=== PATIENT | female | born 1940 | race African-American/Black ===

== ENCOUNTER 2017-04-09 17:50 | Emergency (ER) | payer MEDICARE, OTHER ==
[~2017-04-09] VITALS: Ht 162.6 cm; Wt 98.0 kg
[~2017-04-09 17:50] MED LIST: IBUPROFEN600 MG ORAL
[2017-04-09] MEDS ORDERED: METOPROLOL SUCC25 MG ORAL (18:20)
[2017-04-09 20:06] VITALS: BP 144/50
[2017-04-09 20:07] LABS: BASOPHILS % (AUTO) 1.2 % (0.0-2.0); LYMPHOCYTES % (AUTO) 26.5 % (20.0-45.0); MEAN CORPUSCULAR HEMOGLOBIN 30.5 PG (27.0-31.0); MEAN CORPUSCULAR HGB CONC 34.8 G/DL (32.0-36.0); MEAN CORPUSCULAR VOLUME 88 FL (80-99); MEAN PLATELET VOLUME 6.7 FL (6.5-10.1); NEUTROPHILS % (AUTO) 65.3 % (45.0-75.0); PLATELET COUNT 256 K/UL (150-450); RED BLOOD COUNT 3.87 M/UL (4.20-5.40); RED CELL DISTRIBUTION WIDTH 14.6 % (11.6-14.8); WHITE BLOOD COUNT 7.1 K/UL (4.8-10.8)
[2017-04-09 21:16] LABS: TROPONIN I < 0.30 ng/mL (<=0.30)
[2017-04-09 21:17] LABS: ALANINE AMINOTRANSFERASE 30 U/L (3-33); ALBUMIN/GLOBULIN RATIO 0.9 (1.0-2.7); ANION GAP 17 (5-15); ASPARTATE AMINO TRANSFERASE 36 U/L (5-40); CALCIUM 9.5 mg/dL (8.6-10.2); CARBON DIOXIDE 23 mEQ/L (20-30); CHLORIDE 100 mEQ/L (98-107); CREATININE 1.1 mg/dL (0.5-0.9); HEMOLYSIS 5; POTASSIUM 3.6 mEQ/L (3.4-4.9); SODIUM 140 mEQ/L (135-145); TOTAL PROTEIN 8.1 g/dL (6.6-8.7)
[2017-04-09 21:24] LABS: CKMB 2.1 ng/mL (< 3.8)
[2017-04-09] MEDS ORDERED: ACETAMINOPHEN-1 EAC1 ORAL (21:35)
[2017-04-09] MEDS ORDERED: Morphine Sulfate 4mg/ml Inj IVP ONE (21:45)
[2017-04-09 21:58] VITALS: BP_SYST 140; BP_SYST 144; BP_DIAS 50; BP_DIAS 65
--- NOTE | 2017-04-09 23:38 | Emergency Room Report ---
History of Present Illness General Chief Complaint: General Complaint Source: Patient Present Illness HPI 76-year-old female presents to ED for evaluation. Daughter at bedside states that since this morning patient has been complaining of numbness of the left arm , pain and weakness of the left leg. BP initially elevated. Patient states she woke up with symptoms this morning of numbness in the left arm and feels that her left leg is going to give out. Patient denies any chest pain or shortness of breath. Denies any slurred speech or facial droop. 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 Pain is throbbing, 8/10 in the left hip, nonradiating. No other aggravating or relieving factors. Denies any other associated symptoms Allergies: Coded Allergies: PENICILLINS (Verified Allergy, Unknown, SWELLING EVERYWHERE, EVEN EYES PER PATIENT, 11/24/11) Patient History Past Medical History: none Past Surgical History: none Pertinent Family History: none Social History: Denies: alcohol use, drug use, smoking Now: No Immunizations: UTD Reviewed Nursing Documentation: PMH: Agreed, PSxH: Agreed Nursing Documentation-PMH Hx Cerebrovascular Accident: No - RA Review of Systems All Other Systems: negative except mentioned in HPI Physical Exam Vital Signs Date Time Temp Pulse Resp B/P Pulse Ox O2 Delivery O2 Flow Rate FiO2 04/09/17 18:15 98.2 70 16 209/92 98 Room Air Sp02 EP Interpretation: reviewed, normal General Appearance: no apparent distress, alert, GCS 15, non-toxic Head: normocephalic, atraumatic Eyes: bilateral eye PERRL, bilateral eye normal inspection ENT: hearing grossly normal, normal pharynx, no angioedema, normal voice Neck: full range of motion, supple/symm/no masses Respiratory: chest non-tender, lungs clear, normal breath sounds, speaking full sentences Cardiovascular #1: regular rate, rhythm, no edema Cardiovascular #2: 2+ carotid (R), 2+ carotid (L), 2+ radial (R), 2+ radial (L) , 2+ dorsalis pedis (R), 2+ dorsalis pedis (L) Gastrointestinal: normal bowel sounds, non tender, soft, non-distended, no guarding, no rebound Rectal: deferred Genitourinary: normal inspection, no CVA tenderness Musculoskeletal: back normal, gait/station normal, normal range of motion, non- tender Neurologic: alert, oriented x3, responsive, 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 III-XII nml as tested, motor strength/tone normal, sensory intact, speech normal Psychiatric: judgement/insight normal, memory normal, mood/affect normal, no suicidal/homicidal ideation Reflexes: 3+ bicep (R), 3+ bicep (L), 3+ tricep (R), 3+ tricep (L), 3+ knee (R) , 3+ knee (L) Skin: normal color, no rash, warm/dry, well hydrated Lymphatic: no adenopathy Medical Decision Making Diagnostic Impression: Primary Impression: Hip osteoarthritis Qualified Codes: M16.12 - Unilateral primary osteoarthritis, left hip Additional Impression: Cervical radiculopathy ER Course Hospital Course In the 6-year-old female presents to ED complaining of left arm numbness, left leg weakness. BP elevated Differential diagnoses include: arrythmia, dehydration, intracranial bleed, seizure Clinical course Patient placed on stretcher. on campus monitor. After initial history and physical I ordered labs, EKG, chest Xray, IVFs, CT Brain, CT Cspine, Hip xray labs reviewed- no leukocytosis, Hb/Hct stable, electrolytes ok, troponins negative CT Brain - unremarkable CT Cspine - left formainal stenosis at C5-C6 Chest x-ray- no acute process EKG - NSR, no acute changes L hip xray shows significant DJD, no acute fx Patient has no focal deficits. Despite patient states she feels numb in the left hand, on neurological exam patient equal sensations in both arms. Patient is 5 out of 5 motor in both arms. Patient has 5 out of 5 strength in both legs. She was sensation in both legs. Patient has no facial droop or slurred speech. CT negative. My suspicion for stroke is low Her subjective numbness is likely related to the stenosis at C5, C6 in the neck. Likely a cervical radiculopathy Left hip shows significant degenerative disease which is a likely a explanation for why her leg keep giving out On reassessment blood pressure is markedly improved without intervention I discussed the findings with patient I do not believe patient requires admission at this time. Patient requires outpatient followup I. I feel this is a highly complex case requiring extensive working including EKG/Rhythm strip, Xray/CT/US, Blood/urine lab work, repeat exams while in ED, and administration of strong opiates/narcotics for pain control, admission to hospital or close patient follow up. Diagnosis - hip osteoarthritis, cervical radiculopathy Stable and discharged to home. Followup with PMD. Return to ED if symptoms recur or worsen Labs Test 04/09/17 19:25 04/09/17 20:53 White Blood Count 7.1 K/UL (4.8-10.8) Red Blood Count 3.87 M/UL (4.20-5.40) Hemoglobin 11.8 G/DL (12.0-16.0) Hematocrit 34.0 % (37.0-47.0) Mean Corpuscular Volume 88 FL (80-99) Mean Corpuscular Hemoglobin 30.5 PG (27.0-31.0) Mean Corpuscular Hemoglobin Concent 34.8 G/DL (32.0-36.0) Red Cell Distribution Width 14.6 % (11.6-14.8) Platelet Count 256 K/UL (150-450) Mean Platelet Volume 6.7 FL (6.5-10.1) Neutrophils (%) (Auto) 65.3 % (45.0-75.0) Lymphocytes (%) (Auto) 26.5 % (20.0-45.0) Monocytes (%) (Auto) 4.0 % (1.0-10.0) Eosinophils (%) (Auto) 3.0 % (0.0-3.0) Basophils (%) (Auto) 1.2 % (0.0-2.0) Pro-B-Type Natriuretic Peptide 444 pg/mL (0-450) Sodium Level 140 mEQ/L (135-145) Potassium Level 3.6 mEQ/L (3.4-4.9) Chloride Level 100 mEQ/L (98-107) Carbon Dioxide Level 23 mEQ/L (20-30) Anion Gap 17 (5-15) Blood Urea Nitrogen 12 mg/dL (7-23) Creatinine 1.1 mg/dL (0.5-0.9) Estimat Glomerular Filtration Rate mL/min (>60) Glucose Level 127 mg/dL (74-106) Calcium Level 9.5 mg/dL (8.6-10.2) Total Bilirubin 0.3 mg/dL (0.0-1.2) Aspartate Amino Transf (AST/SGOT) 36 U/L (5-40) Alanine Aminotransferase (ALT/SGPT) 30 U/L (3-33) Alkaline Phosphatase 110 U/L (35-104) Total Creatine Kinase 135 U/L (26-140) Creatine Kinase MB 2.1 ng/mL (< 3.8) Creatine Kinase MB Relative Index 1.5 Troponin I < 0.30 ng/mL (<=0.30) Total Protein 8.1 g/dL (6.6-8.7) Albumin 4.0 g/dL (3.5-5.2) Globulin 4.1 g/dL Albumin/Globulin Ratio 0.9 (1.0-2.7) EKG Diagnostic Results Rate: normal Rhythm: NSR ST Segments: no acute changes ASA given to the pt in ED: No Rhythm Strip Diag. Results EP Interpretation: yes Rhythm: NSR, no PVC's, no ectopy Chest X-Ray Diagnostic Results EP Interpretation: Yes Findings: no consolidation, no effusion, no pneumothorax, no acute cardiopulmonary disease Number of Views: 1 Other X-Ray Diagnostic Results Other X-Ray Diagnostic Results : X-Ray Ordered: L hip EP Interpretation: Yes Findings: no fractures, no dislocation, no soft tissue swelling, other - severe DJD Number of Views: 3 CT/MRI/US Diagnostic Results CT/MRI/US Diagnostic Results : Imaging Test Ordered: CT Head, CT Cspine Impression CT head - no acute process CT Cspine - left foraminal stenosis at C5-C6 Last Vital Signs Date Time Temp Pulse Resp B/P Pulse Ox O2 Delivery O2 Flow Rate FiO2 04/09/17 21:58 97.3 71 22 144/50 96 Room Air Status: improved Disposition: HOME, SELF-CARE Condition: Stable Scripts Acetaminophen With Codeine (T#3) (TYLENOL #3 TAB*) Y Tab 1 TAB ORAL Q8H Y for For Pain, #20 TAB Prov: JASIEL HOLLAND M.D. 04/09/17 Patient Instructions: Osteoarthritis, Cervical Radiculopathy, [id number] JASIEL HOLLAND M.D. Apr 09, 2017 23:38
--- NOTE | 2017-04-10 09:09 | Diagnostic Imaging Report ---
Indication: Neck pain. Technique: Continuous helical imaging of the cervical spine was obtained transaxially from the skull base to the upper thoracic spine. 2-D coronal and sagittal reformatted images were obtained. Total Dose length Product (DLP): [address] Dose Index Volume (CTDIvol): 35 mGy Comparison: None Findings: There is no acute fracture or malalignment identified. There is no soft tissue swelling identified. Mild uncovertebral arthritis is demonstrated at multiple levels. Some of the intervertebral discs show mild narrowing. There is a 2 cm hypodense right thyroid nodule demonstrated. This could be further evaluated with ultrasound. Impression: No acute injury Mild spondylosis [facility] has communicated the preliminary results to the Emergency Department. Their findings are largely concordant with this report. The CT scanner at [facility] is accredited by the [employer] and the scans are performed using dose optimization techniques as appropriate to a performed exam including Automatic Exposure control.
--- NOTE | 2017-04-10 09:25 | Diagnostic Imaging Report ---
Indication: Headache Technique: Contiguous 5 mm thick transaxial imaging of the head obtained in a Siemens Sensation [address] scanner. Soft tissue and bone windows generated. Total Dose length Product (DLP): [address] Dose Index Volume (CTDIvol): 70.38 mGy Comparison: 11/24/11 Findings: There is very mild prominence of the ventricles, basal cisterns, and cerebral sulci consistent with atrophy. Mild, nonspecific, white matter hypoattenuation is noted throughout the brain consistent with chronic small vessel disease. There is no midline shift, edema, acute hemorrhage, mass effect, or abnormal extra-axial fluid collections. Bones and extra osseous soft tissues are unremarkable. Impression: No acute intracranial bleed, mass effect or edema. Mild atrophy of the brain. Nonspecific white matter hypoattenuation probably due to chronic small vessel disease. The CT scanner at [facility] is accredited by the [employer] and the scans are performed using dose optimization techniques as appropriate to a performed exam including Automatic Exposure control.
--- NOTE | 2017-04-10 11:10 | Diagnostic Imaging Report ---
Indications: hip pain Findings: Two views of the left hip were obtained. Moderate to severe narrowing of the left hip joint with subchondral sclerosis, cysts and osteophyte formation demonstrated. There is no fracture or malalignment identified. Impression: Moderate to severe osteoarthritis of the left hip
--- NOTE | 2017-04-11 08:29 | Diagnostic Imaging Report ---
Indication: Chest Pain Comparison: 11/24/11 A single view chest radiograph was obtained. Findings: Cardiac silhouette is enlarged. Lung volumes are low. There is no obvious infiltrate. Multilevel endplate spurs noted throughout the thoracic and lumbar spine with generalized osteopenia. Impression: Enlarged cardiac silhouette presumably due to cardiac enlargement. Pericardial effusion not excluded. Osteoporosis Spondylosis
== END 2017-04-09 22:00 | disposition home or self-care (01) ==
LOC: EMR 18:55
DX: M16.12 Unilateral primary osteoarthritis, left hip (principal); M54.12 Radiculopathy, cervical region; R53.1 Weakness; Z88.0 Allergy status to penicillin; Z96.641 Presence of right artificial hip joint
CPT/HCPCS: 36415; 70450; 71010; 72125; 73502; 80053; 82550; 82553; 83880; 84484; 85025; 93005; 96374; 99284; J2270

== ENCOUNTER 2018-07-28 17:05 | Emergency (ER) | payer MEDICARE, OTHER ==
[~2018-07-28] VITALS: Ht 162.6 cm; Wt 72.6 kg
[~2018-07-28 17:05] MED LIST changes: +ACETAMINOPHEN-1 EAC1 ORAL; +METOPROLOL SUCC25 MG ORAL
--- NOTE | 2018-07-28 17:32 | Emergency Room Report ---
History of Present Illness General Chief Complaint: Dyspnea/Respdistress Source: Patient, Family Member Present Illness HPI 70-year-old female, history of hypertension, asthma/COPD, presenting with progressive shortness of breath, cough for the last week. Decreased oral intake. Saw PCP and was sent to the emergency room. Patient states that she's had productive cough, no fever no chills. This can barely walk because she gets short of breath. No history of DVT or PE in the past Allergies: Coded Allergies: PENICILLINS (Verified Allergy, Unknown, SWELLING EVERYWHERE, EVEN EYES PER PATIENT, 11/24/11) Patient History Past Medical History: see triage record Past Surgical History: none Pertinent Family History: none Reviewed Nursing Documentation: PMH: Agreed; PSxH: Agreed Nursing Documentation-PMH Past Medical History: No History, Except For Hx Hypertension: Yes Hx Asthma: Yes Hx COPD: Yes Hx Cerebrovascular Accident: Yes Review of Systems All Other Systems: negative except mentioned in HPI Physical Exam Vital Signs Date Time Temp Pulse Resp B/P (MAP) Pulse Ox O2 Delivery O2 Flow Rate FiO2 07/28/18 17:18 97.7 82 24 135/64 95 Room Air 97.7 Sp02 EP Interpretation: reviewed, normal General Appearance: alert, GCS 15, non-toxic, mild distress Head: normocephalic, atraumatic Eyes: bilateral eye normal inspection, bilateral eye PERRL, bilateral eye EOMI ENT: normal ENT inspection, normal pharynx, normal voice, moist mucus membranes Neck: normal inspection, full range of motion, supple Respiratory: respiratory distress, speaking full sentences, other - coarse b/l LL base Cardiovascular #1: normal inspection, regular rate, rhythm, no edema, normal capillary refill Cardiovascular #2: 2+ radial (R), 2+ radial (L) Gastrointestinal: normal inspection, non tender, soft, non-distended, no guarding Musculoskeletal: normal inspection, back normal, normal range of motion, non- tender Neurologic: normal inspection, alert, oriented x3, responsive, motor strength/ tone normal, sensory intact, normal gait, speech normal Psychiatric: normal inspection, judgement/insight normal, memory normal Skin: normal inspection, normal color, no rash, warm/dry, well hydrated, normal turgor Medical Decision Making Diagnostic Impression: Primary Impression: Pneumonia Additional Impressions: UTI (urinary tract infection) Elevated troponin ER Course 78-year-old female cough, shortness of breath DDX: URI, pneumonia, CHF, COPD exacerbation Plan: Obtain labs, ua, EKG, CXR ER course: Patient has been monitored during ED stay, HD stable given abx for LL pna as well as for UTI slight elevation trop pt not having active cp asa given and heprain Disposition: Patient is to be xferred to OSH, dw Dr Garcia who has accepted pt for admission 9pm Please note that this Emergency Department Report was dictated using [employer] expedition guide technology software, occasionally this can lead to erroneous entry secondary to interpretation by the dictation equipment. EKG Diagnostic Results EP Interpretation: Yes Rate: normal Rhythm: NSR ST Segments: T wave inversion aVL ASA given to patient: No Rhythm Strip EP Interpretation: Yes Rate: 79 Rhythm: NSR, no PVCs, no ectopy Chest X-ray CXR: Ordered: Yes 1 view Indication: [sob EP interpretation: Yes Interpretation: left lower lobe consolidation Impression: L pneumonia Electronically signed by Vikram Husain MD Laboratory Tests Test 07/28/18 17:55 07/28/18 18:20 White Blood Count 10.4 K/UL (4.8-10.8) Red Blood Count 4.54 M/UL (4.20-5.40) Hemoglobin 11.6 G/DL (12.0-16.0) L Hematocrit 37.9 % (37.0-47.0) Mean Corpuscular Volume 83 FL (80-99) Mean Corpuscular Hemoglobin 25.5 PG (27.0-31.0) L Mean Corpuscular Hemoglobin Concent 30.6 G/DL (32.0-36.0) L Red Cell Distribution Width 16.5 % (11.6-14.8) H Platelet Count 434 K/UL (150-450) Mean Platelet Volume 6.3 FL (6.5-10.1) L Neutrophils (%) (Auto) 67.9 % (45.0-75.0) Lymphocytes (%) (Auto) 14.0 % (20.0-45.0) L Monocytes (%) (Auto) 8.1 % (1.0-10.0) Eosinophils (%) (Auto) 8.4 % (0.0-3.0) H Basophils (%) (Auto) 1.5 % (0.0-2.0) Sodium Level 137 MMOL/L (136-145) Potassium Level 3.9 MMOL/L (3.5-5.1) Chloride Level 102 MMOL/L (98-107) Carbon Dioxide Level 27 MMOL/L (21-32) Anion Gap 9 mmol/L (5-15) Blood Urea Nitrogen 15 mg/dL (7-18) Creatinine 1.0 MG/DL (0.55-1.30) Estimate Glomerular Filtration Rate mL/min (>60) Glucose Level 114 MG/DL (74-106) H Lactic Acid Level 1.20 mmol/L (0.4-2.0) Calcium Level 10.0 MG/DL (8.5-10.1) Total Bilirubin 0.5 MG/DL (0.2-1.0) Aspartate Amino Transferase (AST) 67 U/L (15-37) H Alanine Aminotransferase (ALT) 43 U/L (12-78) Alkaline Phosphatase 96 U/L (46-116) Troponin I 0.258 ng/mL (0.000-0.056) Pro-B-Type Natriuretic Peptide 613 pg/mL (0-125) H Total Protein 9.4 G/DL (6.4-8.2) H Albumin 3.1 G/DL (3.4-5.0) L Globulin 6.3 g/dL Albumin/Globulin Ratio 0.5 (1.0-2.7) L Thyroid Stimulating Hormone (TSH) 2.042 uiU/mL (0.358-3.740) Urine Color Yellow Urine Appearance Cloudy Urine pH 5 (4.5-8.0) Urine Specific [place] 1.020 (1.005-1.035) Urine Protein 2+ (NEGATIVE) H Urine Glucose (UA) Negative (NEGATIVE) Urine Ketones 1+ (NEGATIVE) H Urine Blood 2+ (NEGATIVE) H Urine Nitrite Negative (NEGATIVE) Urine Bilirubin Negative (NEGATIVE) Urine Urobilinogen Normal MG/DL (0.0-1.0) Urine Leukocyte Esterase 3+ (NEGATIVE) H Urine RBC 5-10 /HPF (0 - 2) H Urine WBC 20-30 /HPF (0 - 2) H Urine Squamous Epithelial Cells Many /LPF (NONE/OCC) H Urine Bacteria Many /HPF (NONE) H Microbiology Date/Time Source Procedure Growth Status 07/28/18 17:55 Nasal Nares Influenza Types A,B Antigen ([facility]) - Final Complete Last Vital Signs Date Time Temp Pulse Resp B/P (MAP) Pulse Ox O2 Delivery O2 Flow Rate FiO2 07/28/18 17:18 97.7 82 24 135/64 95 Room Air 97.7 Disposition: [facility] Condition: Serious RetinoVikram M.D. Jul 28, 2018 17:32
[2018-07-28 17:58] VITALS: BP 135/64
[2018-07-28] MEDS ORDERED: cefTRIAXone 1 GM in NS 55 ML IVPB ONE (18:00)
[2018-07-28] MEDS ORDERED: Azithromycin 500 MG in D5W 275 ML IVPB ONE (18:00)
[2018-07-28 18:30] LABS: APPEARANCE,URINE CLOUDY; BILIRUBIN, URINE NEGATIVE (NEGATIVE); GLUCOSE, URINE (UA) NEGATIVE (NEGATIVE); KETONES,URINE 1+ (NEGATIVE); LEUKOCYTE ESTERASE ,URINE 3+ (NEGATIVE); NITRITE,URINE NEGATIVE (NEGATIVE); PH,URINE 5 (4.5-8.0); PROTEIN,URINE 2+ (NEGATIVE); UROBILINOGEN,URINE NORMAL MG/DL (0.0-1.0)
[2018-07-28 18:36] LABS: POTASSIUM 3.9 MMOL/L (3.5-5.1); SODIUM 137 MMOL/L (136-145)
[2018-07-28 18:36] LABS: COLOR,URINE YELLOW
[2018-07-28 18:37] LABS: ANION GAP 9 mmol/L (5-15); BLOOD UREA NITROGEN 15 mg/dL (7-18); CARBON DIOXIDE 27 MMOL/L (21-32); CHLORIDE 102 MMOL/L (98-107)
[2018-07-28 18:45] LABS: ALANINE AMINOTRANSFERASE 43 U/L (12-78); ALBUMIN 3.1 G/DL (3.4-5.0); ASPARTATE AMINO TRANSFERASE 67 U/L (15-37); BILIRUBIN,TOTAL 0.5 MG/DL (0.2-1.0)
[2018-07-28 18:46] LABS: ALBUMIN/GLOBULIN RATIO 0.5 (1.0-2.7); ALKALINE PHOSPHATASE 96 U/L (46-116)
[2018-07-28 18:49] LABS: BASOPHILS % (AUTO) 1.5 % (0.0-2.0); EOSINOPHILS % (AUTO) 8.4 % (0.0-3.0); HEMATOCRIT 37.9 % (37.0-47.0); HEMOGLOBIN 11.6 G/DL (12.0-16.0); MEAN CORPUSCULAR VOLUME 83 FL (80-99); MONOCYTES % (AUTO) 8.1 % (1.0-10.0); NEUTROPHILS % (AUTO) 67.9 % (45.0-75.0); PLATELET COUNT 434 K/UL (150-450); RED BLOOD COUNT 4.54 M/UL (4.20-5.40); RED CELL DISTRIBUTION WIDTH 16.5 % (11.6-14.8); WHITE BLOOD COUNT 10.4 K/UL (4.8-10.8)
[2018-07-28] MEDS ORDERED: LOSARTAN POTASS25 MG ORAL (19:09)
[2018-07-28] MEDS ORDERED: ASPIR 8181 MG ORAL (19:09)
[2018-07-28] MEDS ORDERED: FUROSEMIDE20 M1 ORAL (19:09)
[2018-07-28] MEDS ORDERED: Morphine Sulfate 2mg/ml Inj IVP ONE (19:45)
[2018-07-28 20:22] VITALS: BP 128/66
[2018-07-28] MEDS ORDERED: Heparin 5000 units/ml inj IV ONE (20:30)
[2018-07-28] MEDS ORDERED: Miralax 17gm pkt ORAL PRN (21:45)
[2018-07-28] MEDS ORDERED: Nitroglycerin Subl 0.4mg tab SL PRN (21:45)
[2018-07-28] MEDS ORDERED: Mylanta II UD 30ml ORAL PRN (21:45)
[2018-07-28] MEDS ORDERED: Albuterol/Ipratropium 3ml neb HHN PRN (21:45)
[2018-07-28] MEDS ORDERED: Promethazine/Codeine 5ml UD ORAL PRN (21:45)
[2018-07-28 22:27] VITALS: BP 134/59
[2018-07-28 22:30] VITALS: BP 134/59
[2018-07-29] MEDS ORDERED: Vancomycin 500mg in D5W 275ml IVPB SCH ×2
[2018-07-29] MEDS ORDERED: Heparin 5000 units/ml inj SUBQ SCH (09:00)
[2018-07-29] MEDS ORDERED: Cefepime HCl 1 GM in D5W 55 ML IV SCH (09:00)
--- NOTE | 2018-07-29 10:48 | Diagnostic Imaging Report ---
Indication: Dyspnea Comparison: April 09, 2017 A single view chest radiograph was obtained. Findings: Interstitial opacities are present with prominent vascularity and heart size. The bones are osteopenic. Aorta is calcified. Lung volumes are low. IMPRESSION: Interstitial pulmonary edema suspected
--- NOTE | 2018-07-29 15:12 | Cardiology Report ---
APPROVED REPORT EKG Measurement Heart [id number] Normal sinus rhythm Left ventricular hypertrophy with repolarization abnormality Abnormal ECG
== END 2018-07-28 22:30 | disposition short-term general hospital (02) ==
LOC: EMR 18:38 → EDBEDREQSVC 18:51 → EMR 22:30
DX: J18.8 Other pneumonia, unspecified organism (principal); N39.0 Urinary tract infection, site not specified; R06.02 Shortness of breath; J44.9 Chronic obstructive pulmonary disease, unspecified; J45.998 Other asthma; Z86.73 Personal history of transient ischemic attack (TIA), and cerebral infarction without residual deficits
CPT/HCPCS: 36415; 71045; 80053; 81003; 83605; 83880; 84443; 84484; 85025; 85610; 85730; 86710; 87040; 87086; 87181; 93005; 96365; 96368; 96375; 99284; J0456; J0696; J1644; J2270; 96366; 96372; 99285

== ENCOUNTER 2018-10-06 14:28 | Emergency (ER) | payer MEDICARE, OTHER ==
[~2018-10-06] VITALS: Ht 167.6 cm; Wt 72.6 kg
[~2018-10-06 14:28] MED LIST changes: +ASPIR 8181 MG ORAL; +FUROSEMIDE20 M1 ORAL; +LOSARTAN POTASS25 MG ORAL
[2018-10-06 15:25] VITALS: BP 132/64
[2018-10-06 15:30] VITALS: BP 124/76
--- NOTE | 2018-10-06 16:24 | Diagnostic Imaging Report ---
Indication: Head and neck pain status post fall out of wheelchair Technique: Spiral acquisitions obtained through the cervical spine. No IV contrast utilized. Multiplanar reconstructions were generated. Total dose length product 1606.74 mGycm. CTDIvol(s) 70.38,12.24 mGy. Dose reduction achieved using automated exposure control. Comparison: none Findings: Bony alignment is normal. Vertebral body heights are preserved. The disc spaces are preserved. No acute fractures. No dislocations. At C4-5, bilateral facet arthrosis results in mild narrowing of the neural foramina. Broad-based central posterior disc protrusion is noted, but does not result in any significant spinal stenosis. At C5-6, there is vacuum formation within the C5 endplate consistent with early degenerative change. There is mild bilateral facet arthrosis, with mild neural foraminal stenosis on the left. No significant disc bulge or protrusion or spinal stenosis. At the remaining levels, no significant disc bulge or protrusion, spinal stenosis, or neural foraminal narrowing. A 14 mm low-attenuation nodule is seen within the right thyroid lobe. This appears smaller than on the previous study When compared to prior exam, no significant interim change this was also demonstrated previously Scarring is seen at both lung apices Impression: No acute bony trauma Degenerative changes, as detailed on a level by level basis above Apical pulmonary right scarring incidentally noted A solitary 14 mm thyroid nodule in the right lobe has no suspicious features. In the absence of clinical risk factors for thyroid cancer, this finding is highly likely benign and no additional imaging or follow-up is recommended. CITATION: Recommendations for thyroid nodule management based on Machuca et al., J Am Lizabeth Radiol 12:143-50 (2015). The CT scanner at [facility] is accredited by the [employer] and the scans are performed using protocols designed to limit radiation exposure to as low as reasonably achievable to attain images of sufficient resolution adequate for diagnostic evaluation.
[2018-10-06 16:30] VITALS: BP 128/75
--- NOTE | 2018-10-06 17:07 | Emergency Room Report ---
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 Patient states that when she fell she injured both shoulders and hit the back of her head. Patient states that she also has some posterior neck pain. Patient reports her pain as 5 out of 10 in severity generalized in his body areas she denies pain and pinpoint localized bony tenderness. Patient denies loss of consciousness when she hit her head. Patient denies confusion, slurred speech or difficulty concentrating. Patient eats that she has high blood pressure and COPD and usually requires oxygen on nasal cannula. She denies midline upper or lower back pain. Pt. reports some soreness in the hips but her head and neck took most of the impact. She denies taking blood thinning medications. Pt. has bilateral hip replacement She reports always having hip pain, but is tender after fall as well. . Allergies: Coded Allergies: PENICILLINS (Verified Allergy, Unknown, SWELLING EVERYWHERE, EVEN EYES PER PATIENT, 11/24/11) Uncoded Allergies: PENICILLIN (Allergy, Unknown, 10/06/18) Patient History Past Medical History: see triage record, HTN, COPD Past Surgical History: none, other - bilat. hip replacement Pertinent Family History: none Now: No Reviewed Nursing Documentation: PMH: Agreed; PSxH: Agreed Nursing Documentation-PMH Hx Hypertension: Yes Hx Asthma: Yes Hx COPD: Yes Hx Cerebrovascular Accident: Yes Review of Systems All Other Systems: negative except mentioned in HPI Physical Exam Vital Signs Date Time Temp Pulse Resp B/P (MAP) Pulse Ox O2 Delivery O2 Flow Rate FiO2 10/06/18 14:07 98.1 88 14 146/88 96 Nasal Cannula 2.0 Sp02 EP Interpretation: reviewed, normal General Appearance: no apparent distress, alert, GCS 15, non-toxic Head: normocephalic, other - mild ttp to the posterior head, no hematoma or swelling noted. Eyes: bilateral eye normal inspection, bilateral eye PERRL, bilateral eye EOMI ENT: hearing grossly normal, normal voice Neck: full range of motion, tender lateral, tender midline Respiratory: chest non-tender, lungs clear, normal breath sounds, no respiratory distress, no wheezing, speaking full sentences Cardiovascular #1: regular rate, rhythm, normal capillary refill Gastrointestinal: non tender, soft Musculoskeletal: back normal, normal range of motion, non-tender, other - Pt. requires wheelchair assistance- baseline for her, tender - TTP to bilateral shoulders laterally and posteriorly, ttp to lateral hips bilaterally. no leg length discrepancy. no bruises. Neurologic: alert, oriented x3, responsive, motor strength/tone normal, sensory intact, speech normal, grossly normal Psychiatric: judgement/insight normal, mood/affect normal Skin: normal color, no rash, warm/dry, well hydrated, other - no bruises Medical Decision Making PA Attestation Dr. Sylvester is my supervising physician whom pt. management has been discussed with. 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 Patient states that when she fell she injured both shoulders and hit the back of her head. Patient states that she also has some posterior neck pain. Patient reports her pain as 5 out of 10 in severity generalized in his body areas she denies pain and pinpoint localized bony tenderness. Patient denies loss of consciousness when she hit her head. Patient denies confusion, slurred speech or difficulty concentrating. Patient eats that she has high blood pressure and COPD and usually requires oxygen on nasal cannula. She denies midline upper or lower back pain. Pt. reports some soreness in the hips but her head and neck took most of the impact. She denies taking blood thinning medications. Pt. has bilateral hip replacement She reports always having hip pain, but is tender after fall as well. . Ddx considered but are not limited to Fracture, dislocation, contusion, concussion Sprain/Strain/Spasm, subdural hematoma, intracranial hemorrhage just to name a few. Vital signs: are WNL, pt. is afebrile H&PE are most consistent with contusion, no evidence of focal neurological deficit, no loss of consciousness. Pt. is NAD, non-toxic in appearance, answering questions appropriately and without delay in response. negative pronator drift. pt. able to sit-up on the side of the gurney on her own. ORDERS: -CT Head and C-spine; No acute injuries- multiple levels of degenerative changes pls. see official radiology report for full details. * also Thyroid nodule noted. - this was d/w pt. and her bedside family member. d/w them I will also provide copies of these results for them and for dr. Lema in the pt. packet. X-rays of Right and Left shoulders: Unremarkable- significant chronic degenerative changes. ED INTERVENTIONS: - Pt. had family member at bedside who I also discussed red flag symptoms to keep an eye out for that would indicate prompt return to the ED. Family member attests that someone will be keeping an eye on the pt. tonight for any status changes. - Pt. and responsible alliance party verbalize their understanding and agreement with proposed treatment plan. - Before d/c Pt. was re-assessed due to BLS ambulance concern for RR. Pt. is on NC saturating at 99%, lungs continue to be CTA. Pt. reports she normally breaths a bit faster than normal, but this is normal for her. Pt. is NAD, speaking full sentences, comfortable and no increased effort of breathing is noted. Pt. is also examined by Dr. Sylvester whom agrees and has similar findings. DISCHARGE: At this time pt. is stable for d/c to home. Will provide printed patient care instructions, and any necessary prescriptions. Care plan and follow up instructions have been discussed with the patient prior to discharge. Other X-Ray Diagnostic Results Other X-Ray Diagnostic Results #1: X-Ray ordered: Shoulder Right # of Views/Limited Vs Complete: 3 View Indication: Pain EP Interpretation: Yes PA Xray: Interpretation reviewed, by supervising MD, and agrees with findings. Interpretation: no dislocation, no soft tissue swelling, no fractures, other - degenerative changes Impression: Other - abnormal: degenerative Electronically Signed by: Soraya Welch PA-C Other X-Ray Diagnostic Results #2: X-Ray ordered: Shoulder Left # of Views/Limited Vs Complete: 3 View Indication: Pain EP Interpretation: Yes PA Xray: Interpretation reviewed, by supervising MD, and agrees with findings. Interpretation: no dislocation, no soft tissue swelling, no fractures, other - degenerative changes Impression: Other - abnormal : degenerative changes Electronically Signed by: Soraya Welch PA-C Other X-Ray Diagnostic Results #3: X-Ray ordered: Bilateral Hips and AP pelvis # of Views/Limited Vs Complete: 3 View Indication: Pain EP Interpretation: Yes PA Xray: Interpretation reviewed, by supervising MD, and agrees with findings. Interpretation: no dislocation, no soft tissue swelling, no fractures, other - no obvious periprosthetic fractures. Impression: Other - abnormal: bilateral hip replacement. Electronically Signed by: Soraya Welch PA-C CT/MRI/US Diagnostic Results CT/MRI/US Diagnostic Results : Imaging Test Ordered: CT Head no contrast and CT C-Spine No contrast Impression Impression: No acute injuries- multiple levels of degenerative changes pls. see official radiology report for full details. * also Thyroid nodule noted. - this was d/w pt. and her bedside family member. d/w them I will also provide copies of these results for them and for dr. Lema in the pt. packet. Last Vital Signs Date Time Temp Pulse Resp B/P (MAP) Pulse Ox O2 Delivery O2 Flow Rate FiO2 10/06/18 15:25 98.1 78 16 132/64 98 Nasal Cannula 2.0 Disposition: XFER SNF Condition: Stable Referrals: Rio Lema DO (PCP) Patient Instructions: Fall Prevention in Hospitals, Adult, Head Injury, Adult, Tkza-[id number] Additional Instructions: Take medications as directed. Follow up with a Primary Care Provider in 3-5 days, even if your symptoms have resolved. --Please review list of primary care clinics, if you do not already have a primary care provider Return sooner to ED if new symptoms occur, or current symptoms become worse. - Please note that this Emergency Department Report was dictated using [employer] professor technology software, occasionally this can lead to erroneous entry secondary to interpretation by the dictation equipment. Soraya Welch Oct 06, 2018 17:07
--- NOTE | 2018-10-06 17:20 | Diagnostic Imaging Report ---
Indications: Head and neck pain, status post fall out of wheelchair Technique: Spiral acquisitions obtained through the brain. Angled axial and coronal 5 x 5 mm slices were reconstructed. Total dose length product 1606.74 mGycm. CTDI vol(s) 70.38,12.24 mGy. Dose reduction achieved using automated exposure control Comparison: 04/09/2017 Findings: There is mild age-related enlargement of the ventricles and extra axial CSF spaces. There is periventricular deep white matter low-attenuation consistent with chronic ischemic change. There is a lacunar infarct in the left lentiform nucleus, not definitely evident previously. Questionable old lacunar infarct is also seen in the central tarik, not definitely evident previously. No acute intrarenal hemorrhage or edema. No mass effect nor midline shift. Intact calvarium. Visualized orbits and sinuses are unremarkable. The mastoids are clear. Impression: Chronic and age-related changes, as described. Old left basal ganglial lacunar infarct. Negative for acute infiltrate bleed or mass effect The CT scanner at [facility] is accredited by the [employer] and the scans are performed using protocols designed to limit radiation exposure to as low as reasonably achievable to attain images of sufficient resolution adequate for diagnostic evaluation.
--- NOTE | 2018-10-06 17:21 | Diagnostic Imaging Report ---
Indication: Pain, status post fall Technique: 3 views of the right shoulder Comparison: none Findings: No acute fractures. No dislocations. There are severe degenerative changes of the glenohumeral joint. Widening of the distance between the acromion and humeral head is noted, significance of which is uncertain but is symmetric with the contralateral side. Extensive interstitial fibrotic changes are seen in the lungs bilaterally. Impression: Degenerative changes as described. No definite acute bony trauma
--- NOTE | 2018-10-06 17:22 | Diagnostic Imaging Report ---
Indication: Pain, status post fall Technique: 3 views of the left shoulder Comparison: none Findings: There are end-stage degenerative changes of the left glenohumeral joint, with near complete obliteration of the joint spaces and extensive proliferative change. No definite acute fractures. No dislocations. Widening of the acromiohumeral distance is similar to the contralateral side. Interstitial fibrotic changes of the lungs are incidentally noted. Bones are osteoporotic Impression: No definite acute bony trauma
[2018-10-06 19:00] VITALS: BP 128/75
--- NOTE | 2018-10-07 09:47 | Diagnostic Imaging Report ---
Indication: Pain Technique: One view of the pelvis, 2 views of both hips Comparison: none Findings: There are bilateral hip prostheses. These appear well aligned. No acute fractures. No dislocations. Impression: No acute process
== END 2018-10-06 19:05 ==
LOC: EDBD 14:28 → EMR 14:56
DX: S00.83XA Contusion of other part of head, initial encounter (principal); S10.93XA Contusion of unspecified part of neck, initial encounter; M25.511 Pain in right shoulder; M25.512 Pain in left shoulder; M25.552 Pain in left hip; M25.551 Pain in right hip; I10 Essential (primary) hypertension; J44.9 Chronic obstructive pulmonary disease, unspecified; Z99.81 Dependence on supplemental oxygen; Z87.891 Personal history of nicotine dependence; Z86.73 Personal history of transient ischemic attack (TIA), and cerebral infarction without residual deficits; Z96.643 Presence of artificial hip joint, bilateral; Z88.0 Allergy status to penicillin; W05.0XXA Fall from non-moving wheelchair, initial encounter; Y92.129 Unspecified place in nursing home as the place of occurrence of the external cause
CPT/HCPCS: 70450; 72125; 73521; 99284

== ENCOUNTER 2019-01-17 13:10 | Inpatient (IN) | payer MEDICARE, OTHER ==
[~2019-01-17] VITALS: Ht 167.6 cm; Wt 49.9 kg
[2019-01-17 13:10] VITALS: BP 141/72
--- NOTE | 2019-01-17 13:10 | NUR ---
ED Nurse Note: Patient brought in by ambulance from [facility] due to repspiratory distress since 1200 today, patient is a/o x3
[2019-01-17] MEDS ORDERED: FISH OIL CAP1000 MG ORAL (13:14)
[2019-01-17] MEDS ORDERED: COLACE100 MG ORAL (13:14)
[2019-01-17] MEDS ORDERED: FERROUS SULFAT325 MG ORAL (13:14)
[2019-01-17] MEDS ORDERED: cefTRIAXone 1 GM in NS 55 ML IVPB ONE (13:30)
[2019-01-17] MEDS ORDERED: Albuterol ud Inhalation HHN ONE (13:30)
[2019-01-17] MEDS ORDERED: Ipratropium 0.02% Inh Soln 2.5ml UD HHN ONE (13:30)
[2019-01-17 13:49] LABS: BASOPHILS % (AUTO) 1.1 % (0.0-2.0); EOSINOPHILS % (AUTO) 3.9 % (0.0-3.0); HEMATOCRIT 35.2 % (37.0-47.0); HEMOGLOBIN 10.9 G/DL (12.0-16.0); LYMPHOCYTES % (AUTO) 18.3 % (20.0-45.0); MEAN CORPUSCULAR VOLUME 84 FL (80-99); MONOCYTES % (AUTO) 5.1 % (1.0-10.0); NEUTROPHILS % (AUTO) 71.7 % (45.0-75.0); PLATELET COUNT 357 K/UL (150-450); RED BLOOD COUNT 4.18 M/UL (4.20-5.40); RED CELL DISTRIBUTION WIDTH 17.1 % (11.6-14.8); WHITE BLOOD COUNT 5.7 K/UL (4.8-10.8)
[2019-01-17 13:55] LABS: ANION GAP 9 mmol/L (5-15); BLOOD UREA NITROGEN 14 mg/dL (7-18); CALCIUM 9.7 MG/DL (8.5-10.1); CARBON DIOXIDE 25 MMOL/L (21-32); CHLORIDE 99 MMOL/L (98-107); CREATININE 0.8 MG/DL (0.55-1.30); SODIUM 133 MMOL/L (136-145)
[2019-01-17 13:59] LABS: ALANINE AMINOTRANSFERASE 58 U/L (12-78); ALBUMIN 2.9 G/DL (3.4-5.0); ALBUMIN/GLOBULIN RATIO 0.4 (1.0-2.7); ALKALINE PHOSPHATASE 129 U/L (46-116); ASPARTATE AMINO TRANSFERASE 132 U/L (15-37); BILIRUBIN,TOTAL 0.3 MG/DL (0.2-1.0)
[2019-01-17 14:22] VITALS: BP 157/80
--- NOTE | 2019-01-17 14:25 | Emergency Room Report ---
History of Present Illness General Chief Complaint: Dyspnea/Respdistress Source: Patient, EMS Present Illness HPI This patient is brought in by EMS. She complains of shortness of breath. She does have a history of COPD. She has had intermittent cough. She denies chest pain. There is no fever or chills. There is no nausea or vomiting. There are no other complaints. Allergies: Coded Allergies: PENICILLINS (Verified Allergy, Unknown, SWELLING EVERYWHERE, EVEN EYES PER PATIENT, 11/24/11) Uncoded Allergies: PENICILLIN (Allergy, Unknown, 10/06/18) Patient History Past Medical History: see triage record, DM, HTN, [place], CAD, CHF, asthma, COPD Past Surgical History: other - Bilateral hip replacement Social History: Denies: smoking, alcohol use, drug use Reviewed Nursing Documentation: PMH: Agreed; PSxH: Agreed Nursing Documentation-PMH Past Medical History: No History, Except For Hx Hypertension: Yes Hx Asthma: Yes Hx COPD: Yes Hx Cerebrovascular Accident: Yes Review of Systems All Other Systems: negative except mentioned in HPI Physical Exam Vital Signs Date Time Temp Pulse Resp B/P (MAP) Pulse Ox O2 Delivery O2 Flow Rate FiO2 01/17/19 12:50 98.8 89 20 152/78 91 Non-Rebreather 15.0 01/17/19 13:38 28 Sp02 EP Interpretation: reviewed, normal General Appearance: no apparent distress, alert, GCS 15, non-toxic Head: normocephalic, atraumatic Eyes: bilateral eye normal inspection, bilateral eye PERRL ENT: hearing grossly normal, normal pharynx, no angioedema, normal voice Neck: full range of motion, supple/symm/no masses Respiratory: chest non-tender, lungs clear, normal breath sounds, no respiratory distress, no retraction, no accessory muscle use, speaking full sentences Cardiovascular #1: regular rate, rhythm, no edema Gastrointestinal: normal bowel sounds, non tender, soft, non-distended, no guarding, no rebound Rectal: deferred Musculoskeletal: normal range of motion, non-tender Neurologic: alert, oriented x3, responsive, motor strength/tone normal, sensory intact, speech normal Psychiatric: judgement/insight normal, memory normal, mood/affect normal, no suicidal/homicidal ideation Skin: normal color, no rash, warm/dry, well hydrated Medical Decision Making Diagnostic Impression: Primary Impression: CHF exacerbation Additional Impressions: Elevated troponin COPD exacerbation ER Course Patient presents with a CHF exacerbation in combination with a COPD exacerbation. Initially I thought this is primarily a COPD exacerbation and the patient was given albuterol, prednisone, IV fluids and antibiotics. However , chest x-ray showed diffuse opacifications consistent with congestive heart failure. So I also treated her with Lasix and nitro paste to her chest wall. The patient did have an elevated troponin was given aspirin. The patient will be admitted to telemetry. Laboratory Tests Test 01/17/19 13:20 White Blood Count 5.7 K/UL (4.8-10.8) Red Blood Count 4.18 M/UL (4.20-5.40) L Hemoglobin 10.9 G/DL (12.0-16.0) L Hematocrit 35.2 % (37.0-47.0) L Mean Corpuscular Volume 84 FL (80-99) Mean Corpuscular Hemoglobin 26.0 PG (27.0-31.0) L Mean Corpuscular Hemoglobin Concent 30.9 G/DL (32.0-36.0) L Red Cell Distribution Width 17.1 % (11.6-14.8) H Platelet Count 357 K/UL (150-450) Mean Platelet Volume 5.8 FL (6.5-10.1) L Neutrophils (%) (Auto) 71.7 % (45.0-75.0) Lymphocytes (%) (Auto) 18.3 % (20.0-45.0) L Monocytes (%) (Auto) 5.1 % (1.0-10.0) Eosinophils (%) (Auto) 3.9 % (0.0-3.0) H Basophils (%) (Auto) 1.1 % (0.0-2.0) Sodium Level 133 MMOL/L (136-145) L Potassium Level 4.0 MMOL/L (3.5-5.1) Chloride Level 99 MMOL/L (98-107) Carbon Dioxide Level 25 MMOL/L (21-32) Anion Gap 9 mmol/L (5-15) Blood Urea Nitrogen 14 mg/dL (7-18) Creatinine 0.8 MG/DL (0.55-1.30) Estimate Glomerular Filtration Rate mL/min (>60) Glucose Level 97 MG/DL (74-106) Calcium Level 9.7 MG/DL (8.5-10.1) Total Bilirubin 0.3 MG/DL (0.2-1.0) Aspartate Amino Transferase (AST) 132 U/L (15-37) H Alanine Aminotransferase (ALT) 58 U/L (12-78) Alkaline Phosphatase 129 U/L (46-116) H Troponin I 0.453 ng/mL (0.000-0.056) Total Protein 9.9 G/DL (6.4-8.2) H Albumin 2.9 G/DL (3.4-5.0) L Globulin 7.0 g/dL Albumin/Globulin Ratio 0.4 (1.0-2.7) L Microbiology Date/Time Source Procedure Growth Status 01/17/19 13:20 Nasal Nares Influenza Types A,B Antigen (GISELLE) - Final Complete EKG Diagnostic Results Rate: normal Rhythm: NSR ST Segments: other - ILBBB, LVH Rhythm Strip Diag. Results EP Interpretation: yes Rate: 70's Rhythm: NSR, no PVC's, no ectopy Chest X-Ray Diagnostic Results Chest X-Ray Diagnostic Results : Chest X-Ray Ordered: Yes # of Views/Limited/Complete: 1 View Indication: Shortness of Breath EP Interpretation: Yes Interpretation: no pneumothorax, other - Diffuse patchy opacities, cardiomegaly Impression: Other - See above Electronically Signed by: Vania Kumar DO Last Vital Signs Date Time Temp Pulse Resp B/P (MAP) Pulse Ox O2 Delivery O2 Flow Rate FiO2 01/17/19 13:46 28 01/17/19 13:46 74 20 98 Nasal Cannula 2.0 01/17/19 13:10 98.8 141/72 Disposition: ADMITTED INPATIENT Condition: Serious Vania Kumar DO Jan 17, 2019 14:25
[2019-01-17] MEDS ORDERED: Nitroglycerin 2% oint pkt TOPIC ONE (14:30)
[2019-01-17] MEDS ORDERED: Aspirin Baby 81mg ORAL ONE (14:30)
--- NOTE | 2019-01-17 14:57 | Diagnostic Imaging Report ---
Indication: Shortness of breath Technique: One view of the chest Comparison: 07/28/2018 Findings: Extensive interstitial and airspace opacities are demonstrated bilaterally. Allowing for differences in exposure technique, perhaps slightly increased from the prior exam. There is a significant component of honeycombing, bronchiectasis, bronchial wall thickening, particularly in the right perihilar region, right lung base, and left perihilar region. There is suggestion of an old healed fracture deformity of the right clavicle. There are degenerative changes of the shoulders bilaterally. The heart is enlarged. There may be small bilateral pleural effusions. Impression: Cardiomegaly Bilateral extensive interstitial and airspace opacities, slightly increased from but similar in distribution to prior study of 07/28/2018. Suspect component of chronic interstitial fibrosis with superimposed acute edema or infiltrates
[2019-01-17 15:04] LABS: APPEARANCE,URINE CLOUDY; BILIRUBIN, URINE NEGATIVE (NEGATIVE); COLOR,URINE PALE YELLOW; GLUCOSE, URINE (UA) NEGATIVE (NEGATIVE); KETONES,URINE NEGATIVE (NEGATIVE); LEUKOCYTE ESTERASE ,URINE 3+ (NEGATIVE); NITRITE,URINE NEGATIVE (NEGATIVE); PH,URINE 7 (4.5-8.0); PROTEIN,URINE NEGATIVE (NEGATIVE); UROBILINOGEN,URINE NORMAL MG/DL (0.0-1.0)
[2019-01-17 16:08] VITALS: BP 142/68
--- NOTE | 2019-01-17 16:41 | NUR ---
ED Nurse Note: called [facility] for report, the receiving nurse is Jennifer, and he is transferring patient, so he is not available. Per charge nurse [facility], Jennifer will call back.
[2019-01-17] MEDS ORDERED: TRAMADOL HCL50 MG ORAL (16:59)
[2019-01-17] MEDS ORDERED: ATORVASTATIN CA80 MG ORAL (16:59)
[2019-01-17] MEDS ORDERED: ZOFRAN ODT8 MG ORAL (16:59)
[2019-01-17] MEDS ORDERED: ACETAMINOP160 MG/54 ORAL (16:59)
[2019-01-17] MEDS ORDERED: MIRALAX17 G2 ORAL (16:59)
[2019-01-17] MEDS ORDERED: SENNA8.6 M2 PO (16:59)
--- NOTE | 2019-01-17 17:16 | NUR ---
ED Nurse Note: called [facility] again spoke with charge nurse, Jennifer RN is busy discharging a patient at this time. Charge nurse said she will call us back.
[2019-01-17] MEDS ORDERED: ACETAMINOPHEN325 M1 ORAL (17:21)
[2019-01-17] MEDS ORDERED: FUROSEMIDE40 MG ORAL (17:31)
[2019-01-17] MEDS ORDERED: DUONEB 0.5-3(2.53 ML HHN (17:31)
[2019-01-17] MEDS ORDERED: METOPROLOL TART25 MG ORAL (17:31)
[2019-01-17] MEDS ORDERED: ZOFRAN4 M3 ORAL (17:31)
[2019-01-17] MEDS ORDERED: MEGESTROL400 MG/11 PO (17:37)
[2019-01-17] MEDS ORDERED: ADVANCED ANTAC355 ML ORAL (17:37)
[2019-01-17] MEDS ORDERED: MILK OF MA2400 MG/10 ORAL (17:37)
[2019-01-17] MEDS ORDERED: PRO-STAT LIQUID30 ML ORAL (17:37)
[2019-01-17] MEDS ORDERED: NITROSTAT0.4 M1 SL (17:37)
--- NOTE | 2019-01-17 18:21 | NUR ---
ED Nurse Note: Called and spoke with charge nurse, the charge nurse will take the report, but she is making an assignment so she wants ED RN to wait Charge nurse said she will call back in few minutes.
[2019-01-17 18:22] VITALS: BP 144/98
--- NOTE | 2019-01-17 18:40 | NUR ---
NURSE NOTES: RECEIVED TELEPHONE REPORT FROM JUANY SAVAGE STAFF OF ED DPT.PT ADMITED WITH DX OF CHF.PT AWAKE AND ALERT ORIENTED X4,FULL CODE,ALLERGIC TO PCN.AWAITING FOR THE PT TO COME AT [facility].
[2019-01-17] MEDS ORDERED: Ketorolac 30mg Inj IV PRN (18:45)
[2019-01-17] MEDS ORDERED: Albuterol/Ipratropium 3ml neb HHN PRN (18:45)
[2019-01-17] MEDS ORDERED: Morphine Sulfate 2mg/ml Inj(IV/IM USE ONLY) IVP PRN (18:45)
[2019-01-17] MEDS ORDERED: LORazepam Inj 2mg/ml 1ml IV PRN (18:45)
[2019-01-17] MEDS ORDERED: Nitroglycerin Subl 0.4mg tab SL PRN (18:45)
[2019-01-17] MEDS ORDERED: Promethazine/Codeine 5ml UD ORAL PRN (18:45)
--- NOTE | 2019-01-17 19:00 | NUR ---
HAND-OFF: Report given to .MARIE SAVAGE.
--- NOTE | 2019-01-17 19:15 | NUR ---
NURSE NOTES: Report received from HUSSEIN Goss. Patient seen in bed in ely position eating dinner with family member by bed side. alert, verbally responsive, able to make needs known. Denies any pain at this time. Patient is on oxygen via NC 2L/minm sp02 is 98%. IV site is to right hand, 20g, and is intact. Vital sign at 1910 was BP155/94, P 99, T 98.1, RR 19. Bed is in lowest position. Call light is within easy reach while in room. will continue to monitor.
[2019-01-17 20:00] VITALS: BP 136/76
[2019-01-17] MEDS: Theophylline ER 100mg ORAL SCH (20:46)
[2019-01-17] MEDS: Heparin 5000 units/ml inj SUBQ SCH (20:46)
--- NOTE | 2019-01-17 22:45 | History and Physical Report ---
DATE OF ADMISSION: 01/17/2019 TIME SEEN: At 5 p.m. CONSULTANTS: 1. Renzo Burgess M.D. 2. Jersey Chadwick M.D. CHIEF COMPLAINT: Shortness of breath, COPD, and elevated troponin. BRIEF HISTORY: This is a 78-year-old female from [facility], presented with increased shortness of breath for two days, was found to have elevated troponin and being admitted to [facility] for further care. Currently, O2 NC, slight short of breath in ER [facility]. No complaint. REVIEW OF SYSTEMS: No chest pain. Slight short of breath. No nausea, vomiting, or diarrhea. PAST MEDICAL HISTORY: Include hypertension, COPD, osteoarthritis, CHF, and cervical radiculopathy. PAST SURGICAL HISTORY: Hip. ALLERGIES: Penicillin. MEDICATIONS: Include nitroglycerin, furosemide, aspirin, albuterol, ceftriaxone, and prednisone. SOCIAL HISTORY: No smoking. No alcohol. No intravenous drug abuse. FAMILY HISTORY: Noncontributory. PHYSICAL EXAMINATION: GENERAL: Calm in bed, O2 NC, slight short of breath. Oriented x2, no acute distress. VITAL SIGNS: Temperature is 98, pulse 88, respirations 29, and blood pressure 142/68. CARDIOVASCULAR: No murmurs. LUNGS: Poor air exchange. ABDOMEN: Bowel sounds distant. EXTREMITIES: No cyanosis, clubbing, or edema. NEUROLOGIC: The patient moves all extremities, slightly weak. LABORATORY AND DIAGNOSTIC DATA: Labs at this time show H and H 10.9/35, otherwise CBC is normal. BMP shows sodium 133, AST 132, alkaline phosphatase 109, troponin 0.453, and albumin 2.9. Urinalysis show 3+ leukocyte esterase. ASSESSMENT: 1. COPD exacerbation. 2. UTI. 3. Shortness breath. 4. Elevated troponin. 5. Anemia. 6. CHF. 7. Hypertension. 8. Osteoarthritis. 9. Cervical radiculopathy. PLAN: 1. PT and dietary. 2. O2 and pulmonary treatment. 3. Antibiotics per Infectious Disease. 4. Resume home medications. 5. CBC and BMP in the morning. 6. Troponin q. 8h. x3. 7. EKG in the a.m. 8. Dr. Burgess, Dr. Chadwick, and Dr. Herrera to consult. Rio Lema D.O. DR: SONDRA JOB#: [id number] CC:
[2019-01-17] MEDS: Solu-MEDROL 125mg Inj IV SCH (23:20)
[2019-01-18] VITALS: BP 131/83
[2019-01-18 04:00] VITALS: BP 131/75
[2019-01-18] MEDS: Solu-MEDROL 125mg Inj IV SCH ×4 (05:05→23:12)
--- NOTE | 2019-01-18 07:03 | NUR ---
HAND-OFF: Report given to Mark Mccullough RN.
--- NOTE | 2019-01-18 07:43 | NUR ---
NURSE NOTES: Received patient from Parminder Morales RN. Patient is asleep and is receiving O2 via Nasal cannula at 2 Liters/min. Purewick is intact and draining properly. Skin is intact. IV site is Right hand 20 gauge saline lock. Bed is locked, placed in lowest position, and call light is in reach. Will continue to monitor.
[2019-01-18 07:56] LABS: BASOPHILS % (AUTO) 0.5 % (0.0-2.0); EOSINOPHILS % (AUTO) 0.1 % (0.0-3.0); HEMATOCRIT 32.1 % (37.0-47.0); HEMOGLOBIN 10.1 G/DL (12.0-16.0); LYMPHOCYTES % (AUTO) 18.5 % (20.0-45.0); MEAN CORPUSCULAR VOLUME 85 FL (80-99); MONOCYTES % (AUTO) 0.9 % (1.0-10.0); NEUTROPHILS % (AUTO) 80.1 % (45.0-75.0); PLATELET COUNT 335 K/UL (150-450); RED BLOOD COUNT 3.77 M/UL (4.20-5.40); RED CELL DISTRIBUTION WIDTH 16.7 % (11.6-14.8); WHITE BLOOD COUNT 4.4 K/UL (4.8-10.8)
[2019-01-18 08:00] VITALS: BP 138/76
[2019-01-18 08:05] LABS: ALANINE AMINOTRANSFERASE 55 U/L (12-78); ALBUMIN 2.9 G/DL (3.4-5.0); ALBUMIN/GLOBULIN RATIO 0.4 (1.0-2.7); ALKALINE PHOSPHATASE 129 U/L (46-116); ANION GAP 10 mmol/L (5-15); ASPARTATE AMINO TRANSFERASE 119 U/L (15-37); BILIRUBIN,TOTAL 0.4 MG/DL (0.2-1.0); BLOOD UREA NITROGEN 22 mg/dL (7-18); CALCIUM 9.8 MG/DL (8.5-10.1); CARBON DIOXIDE 24 MMOL/L (21-32); CHLORIDE 99 MMOL/L (98-107); CREATININE 0.8 MG/DL (0.55-1.30); POTASSIUM 4.2 MMOL/L (3.5-5.1); SODIUM 133 MMOL/L (136-145)
[2019-01-18] MEDS: Theophylline ER 100mg ORAL SCH ×2 (08:39→20:13)
[2019-01-18] MEDS: Heparin 5000 units/ml inj SUBQ SCH ×2 (08:40→20:15)
--- NOTE | 2019-01-18 08:41 | NUR ---
RADIOLOGY DEPT, CHEST X-RAY DONE.-P.DYE
[2019-01-18] MEDS ORDERED: Furosemide 40mg tab ORAL SCH (09:00)
--- NOTE | 2019-01-18 09:51 | NUR ---
SISAL PICKERANIMAL CARE ASSISTANT 78 Y/O FEMALE BIBA FROM [facility] [place] [facility] [place] CC:DYSPNEA/ RESPIRATORY DISTRESS SI:CHF . COPD VS: BP 157/80, P 89, T 98.8, RR 28, SpO2 91 on 15.0 O2 N.R. Mask Na 133, AST 132, ALK. PHOS. 129, TROPONIN I 0.453, TOTAL PROTEIN 9.9, Urine Blood 4+ CXR Impression: Cardiomegaly IS:NS IV x1L PREDNISONE 60mg CEFTRIAXONE 55ml ATROVENT 500mcg ASPIRIN 162mg LASIX 40mg NITROGLYCERIN 1inch ADMITTED TO [facility]U DC PLAN[facility]
[2019-01-18] MEDS ORDERED: clonazePAM 0.5mg tab ORAL PRN (10:15)
[2019-01-18] MEDS ORDERED: Isovue-370 150ml vial INJ PRN (10:45)
--- NOTE | 2019-01-18 10:53 | Consultation ---
History of Present Illness General Date patient seen: Jan 18, 2019 Chief Complaint: Dyspnea/Respdistress Present Illness HPI 78 year old female with hx of DM, HTN, ND, CAD, CHF, asthma, COPD , [facility] resident brought in by EMS with complains of shortness of breath, intermittent cough. She denies chest pain. There is no fever or chills. There is no nausea or vomiting. There are no other complaints. Pt was diagnosed to have acute CHF and COPD exacerbation and admitted to [facility] for further evaluation. Allergies: Coded Allergies: PENICILLINS (Verified Allergy, Unknown, SWELLING EVERYWHERE, EVEN EYES PER PATIENT, 11/24/11) Medication History Scheduled Amino Acids/Protein Hydrolys (Pro-Stat Liquid), 30 ML ORAL TWICE A DAY, ( Reported) Aspirin* (Aspir 81*), 81 MG ORAL DAILY, (Reported) Atorvastatin Calcium* (Lipitor*), 80 MG ORAL BEDTIME, (Reported) Docusate Sodium* (Colace*), 100 MG ORAL TWICE A DAY, (Reported) Ferrous Sulfate* (Ferrous Sulfate*), 325 MG ORAL DAILY, (Reported) Fish Oil (Fish Oil 1,000 mg Capsule), 1,000 MG ORAL DAILY, (Reported) Furosemide* (Lasix*), 40 MG ORAL DAILY, (Reported) Megestrol Acetate (Megestrol Acetate), 400 MG PO BID, (Reported) Metoprolol Tartrate* (Metoprolol Tartrate*), 12.5 MG ORAL EVERY 12 HOURS, ( Reported) Sennosides (Senna), 2 TAB PO BID, (Reported) Scheduled PRN Acetaminophen* (Acetaminophen 325MG Tablet*), 325 MG ORAL Q4H PRN for Mild Pain (Pain Scale 1-3), (Reported) Acetaminophen* (Acetaminophen 325MG Tablet*), 650 MG ORAL Q4H PRN for Moderate Pain (Pain Scale 4-6), (Reported) Ipratropium/Albuterol Sulfate (DuoNeb 0.5-3(2.5)mg/3ml), 3 ML HHN Q6HR PRN for Shortness of Breath, (Reported) Mag Hydrox/Al Hydrox/Simeth* (Advanced Antacid Liquid*), 30 ML ORAL FOUR TIMES A DAY PRN for indigestion, (Reported) Magnesium Hydroxide* (Milk Of Magnesia*), 30 ML ORAL DAILY PRN for Constipation, (Reported) Nitroglycerin (Nitrostat), 0.4 MG SL Q5M X3 DOSES PRN for CHEST PAIN, (Reported) Ondansetron* (Zofran*), 4 MG ORAL Q6H PRN for Nausea & Vomiting, (Reported) Polyethylene Glycol 3350* (Miralax*), 17 GM ORAL DAILY PRN for Constipation, ( Reported) Tramadol Hcl* (Ultram*), 50 MG ORAL Q6H PRN for Severe Pain (Pain Scale 7-10), ( Reported) Discontinued Medications Acetaminophen* (Acetaminophen*), 650 MG ORAL Q6H PRN for Mild Pain/Temp > 100.5, (Reported) Discontinued Reason: Prescription changed Furosemide* (Lasix*), Unknown Dose ORAL DAILY, (Reported) Discontinued Reason: Prescription changed Metoprolol Succinate* (Metoprolol Succinate*), Unknown Dose ORAL DAILY, ( Reported) Discontinued Reason: Prescription changed Ondansetron Odt* (Zofran Odt*), 4 MG ORAL Q6H PRN for Nausea & Vomiting, ( Reported) Discontinued Reason: Prescription changed Patient History Healthcare decision maker N Resuscitation status Full Code Advanced Directive on File Past Medical/Surgical History Past Medical/Surgical History: (1) Pulmonary fibrosis (2) Hypertension (3) Hip osteoarthritis (4) Cervical radiculopathy Review of Systems Constitutional: Reports: no symptoms, malaise Respiratory: Reports: shortness of breath, MALCOLM, sputum Physical Exam General Appearance: cachetic Lines, tubes and drains: peripheral HEENT: normocephalic, atraumatic Neck: non-tender, normal alignment Respiratory/Chest: chest wall non-tender, lungs clear Breasts: no masses Cardiovascular/Chest: normal peripheral pulses Abdomen: normal bowel sounds, non tender Genitourinary/Rectal: normal genital exam Skin Exam: normal pigmentation 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: 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 finisher 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 grossly normal Last 24 Hour Vital Signs Date Time Temp Pulse Resp B/P (MAP) Pulse Ox O2 Delivery O2 Flow Rate FiO2 01/18/19 08:19 91 20 99 Nasal Cannula 2.0 28 01/18/19 08:12 96 18 98 Nasal Cannula 2.0 28 01/18/19 04:00 Nasal Cannula 2.0 01/18/19 04:00 98.5 82 22 131/75 (93) 100 01/18/19 04:00 2.0 01/18/19 03:22 98 01/18/19 00:00 97.7 101 16 131/83 (99) 99 01/18/19 00:00 Nasal Cannula 2.0 01/17/19 23:23 96 01/17/19 20:00 2.0 01/17/19 20:00 Nasal Cannula 2.0 01/17/19 20:00 98.8 100 28 136/76 (96) 99 01/17/19 19:50 98 01/17/19 19:13 Nasal Cannula 2.0 01/17/19 18:22 98.8 92 29 144/98 100 Nasal Cannula 2.0 28 01/17/19 16:08 98.8 88 29 142/68 97 Nasal Cannula 2.0 28 01/17/19 14:40 157/80 01/17/19 14:22 98.8 85 28 157/80 100 Nasal Cannula 2.0 28 01/17/19 13:46 28 01/17/19 13:46 74 20 98 Nasal Cannula 2.0 28 01/17/19 13:38 72 18 Nasal Cannula 2.0 28 01/17/19 13:38 72 20 97 Nasal Cannula 2.0 28 01/17/19 13:10 89 27 Nasal Cannula 2.0 01/17/19 13:10 98.8 85 20 141/72 91 Nasal Cannula 2.0 01/17/19 12:50 98.8 89 20 152/78 91 Non-Rebreather 15.0 Intake and Output 01/17/19 01/18/19 19:00 07:00 Intake Total 0 ml 50 ml Output Total 500 ml Balance 0 ml -450 ml Intake Oral 0 ml 50 ml Output Urine Total 500 ml Laboratory Tests Test 01/17/19 13:20 01/17/19 14:48 01/18/19 06:44 White Blood Count 5.7 K/UL (4.8-10.8) 4.4 K/UL (4.8-10.8) L Red Blood Count 4.18 M/UL (4.20-5.40) L 3.77 M/UL (4.20-5.40) L Hemoglobin 10.9 G/DL (12.0-16.0) L 10.1 G/DL (12.0-16.0) L Hematocrit 35.2 % (37.0-47.0) L 32.1 % (37.0-47.0) L Mean Corpuscular Volume 84 FL (80-99) 85 FL (80-99) Mean Corpuscular Hemoglobin 26.0 PG (27.0-31.0) L 26.7 PG (27.0-31.0) L Mean Corpuscular Hemoglobin Concent 30.9 G/DL (32.0-36.0) L 31.4 G/DL (32.0-36.0) L Red Cell Distribution Width 17.1 % (11.6-14.8) H 16.7 % (11.6-14.8) H Platelet Count 357 K/UL (150-450) 335 K/UL (150-450) Mean Platelet Volume 5.8 FL (6.5-10.1) L 5.2 FL (6.5-10.1) L Neutrophils (%) (Auto) 71.7 % (45.0-75.0) 80.1 % (45.0-75.0) H Lymphocytes (%) (Auto) 18.3 % (20.0-45.0) L 18.5 % (20.0-45.0) L Monocytes (%) (Auto) 5.1 % (1.0-10.0) 0.9 % (1.0-10.0) L Eosinophils (%) (Auto) 3.9 % (0.0-3.0) H 0.1 % (0.0-3.0) Basophils (%) (Auto) 1.1 % (0.0-2.0) 0.5 % (0.0-2.0) Sodium Level 133 MMOL/L (136-145) L 133 MMOL/L (136-145) L Potassium Level 4.0 MMOL/L (3.5-5.1) 4.2 MMOL/L (3.5-5.1) Chloride Level 99 MMOL/L (98-107) 99 MMOL/L (98-107) Carbon Dioxide Level 25 MMOL/L (21-32) 24 MMOL/L (21-32) Anion Gap 9 mmol/L (5-15) 10 mmol/L (5-15) Blood Urea Nitrogen 14 mg/dL (7-18) 22 mg/dL (7-18) H Creatinine 0.8 MG/DL (0.55-1.30) 0.8 MG/DL (0.55-1.30) Estimat Glomerular Filtration Rate mL/min (>60) mL/min (>60) Glucose Level 97 MG/DL (74-106) 122 MG/DL (74-106) H Calcium Level 9.7 MG/DL (8.5-10.1) 9.8 MG/DL (8.5-10.1) Total Bilirubin 0.3 MG/DL (0.2-1.0) 0.4 MG/DL (0.2-1.0) Aspartate Amino Transf (AST/SGOT) 132 U/L (15-37) H 119 U/L (15-37) H Alanine Aminotransferase (ALT/SGPT) 58 U/L (12-78) 55 U/L (12-78) Alkaline Phosphatase 129 U/L (46-116) H 129 U/L (46-116) H Troponin I 0.453 ng/mL (0.000-0.056) Total Protein 9.9 G/DL (6.4-8.2) H 10.2 G/DL (6.4-8.2) H Albumin 2.9 G/DL (3.4-5.0) L 2.9 G/DL (3.4-5.0) L Globulin 7.0 g/dL 7.3 g/dL Albumin/Globulin Ratio 0.4 (1.0-2.7) L 0.4 (1.0-2.7) L Urine Color Pale yellow Urine Appearance Cloudy Urine pH 7 (4.5-8.0) Urine Specific [place] 1.010 (1.005-1.035) Urine Protein Negative (NEGATIVE) Urine Glucose (UA) Negative (NEGATIVE) Urine Ketones Negative (NEGATIVE) Urine Blood 4+ (NEGATIVE) H Urine Nitrite Negative (NEGATIVE) Urine Bilirubin Negative (NEGATIVE) Urine Urobilinogen Normal MG/DL (0.0-1.0) Urine Leukocyte Esterase 3+ (NEGATIVE) H Urine RBC 5-10 /HPF (0 - 2) H Urine WBC 5-10 /HPF (0 - 2) H Urine Squamous Epithelial Cells Occasional /LPF Urine Bacteria Many /HPF (NONE) H Pro-B-Type Natriuretic Peptide 2288 pg/mL (0-125) H Microbiology Date/Time Source Procedure Growth Status 01/17/19 13:20 Nasal Nares Influenza Types A,B Antigen (GISELLE) - Final Complete 01/17/19 14:48 Urine,Clean Catch Urine Culture - Preliminary NO GROWTH Resulted Height (Feet): 5 Height (Inches): 6.00 Weight (Pounds): 127 Medications Current Medications Medications (Trade) Dose Ordered Sig/Charly Route PRN Reason Start Time Stop Time Status Last Admin Dose Admin Albuterol/ Ipratropium (Albuterol/ Ipratropium) 3 ml Q4H PRN HHN dyspnea 01/17/19 18:45 01/22/19 18:44 01/18/19 08:12 Aspirin (Ecotrin) 81 mg DAILY ORAL 01/19/19 09:00 02/18/19 08:59 UNV Aztreonam 1 gm/ Sodium Chloride 50 ml @ 100 mls/hr Q8HR IVPB 01/18/19 12:00 01/25/19 11:59 Clonazepam (KlonoPIN) 0.5 mg EVERY 12 HOURS PRN ORAL For Anxiety 01/18/19 10:15 01/25/19 10:14 UNV Dextrose (Dextrose 50%) 25 ml Q30M PRN IV Hypoglycemia 01/17/19 18:45 02/16/19 18:44 Dextrose (Dextrose 50%) 50 ml Q30M PRN IV Hypoglycemia 01/17/19 18:45 02/16/19 18:44 Heparin Sodium (Porcine) (Heparin 5000 units/ml) 5,000 units EVERY 12 HOURS SUBQ 01/17/19 21:00 02/16/19 20:59 01/18/19 08:40 Iopamidol (Isovue-370 150ml) 150 ml NOW PRN INJ Radiology Procedure 01/18/19 10:45 01/20/19 10:42 UNV Lorazepam (Ativan 2mg/ml 1ml) 0.5 mg Q4H PRN IV For Anxiety 01/17/19 18:45 01/24/19 18:44 01/18/19 10:26 Methylprednisolone Sodium Succinate (Solu-MEDROL) 60 mg Q6H IV 01/18/19 00:00 02/17/19 00:00 01/18/19 05:05 Nitroglycerin (Ntg) 0.4 mg Q5M X 3 DOSES PRN SL Prn Chest Pain 01/17/19 18:45 02/16/19 18:44 Ondansetron HCl (Zofran) 4 mg Q6H PRN IVP Nausea & Vomiting 01/17/19 18:45 02/16/19 18:44 Promethazine HCl/ Codeine (Phenergan with Codeine) 5 ml Q6H PRN ORAL cough 01/17/19 18:45 02/16/19 18:44 Quetiapine Fumarate (SEROquel) 25 mg Q12HR ORAL 01/18/19 21:00 02/17/19 20:59 UNV Temazepam (Restoril) 15 mg HSPRN PRN ORAL Insomnia 01/17/19 18:45 01/24/19 18:44 Theophylline (Jimmy-Dur) 100 mg EVERY 12 HOURS ORAL 01/17/19 21:00 02/16/19 20:59 01/18/19 08:39 Assessment/Plan Problem List: (1) Acute respiratory failure ICD Codes: J96.00 - Acute respiratory failure, unspecified whether with hypoxia or hypercapnia SNOMED: 97310733 (2) COPD exacerbation ICD Codes: J44.1 - Chronic obstructive pulmonary disease with (acute) exacerbation SNOMED: 418842278, 594232668, 133990326 (3) Elevated troponin ICD Codes: R74.8 - Abnormal levels of other serum enzymes SNOMED: 229991104, 947147933, 418751560 (4) Pulmonary hypertension ICD Codes: I27.20 - Pulmonary hypertension, unspecified SNOMED: 38055665 (5) Pulmonary fibrosis ICD Codes: J84.10 - Pulmonary fibrosis, unspecified SNOMED: 23878001 (6) Hypertension ICD Codes: I10 - Essential (primary) hypertension SNOMED: 92918721 Assessment/Plan CTA to rule out PE respiratory treatment check sputum iv abx, iv steroids titrate fio2 to sat of 92% repeat troponin Echocardiogram dvt prophylaxis. Jersey Chadwick MD Jan 18, 2019 10:53
--- NOTE | 2019-01-18 11:11 | NUR ---
ST NOTE: BEDSIDE SWALLOW EVAL RECEIVED BEDSIDE SWALLOW EVAL ORDER CHART REVIEWED PRIOR THE EVALUATION PT IS A 78-YEAR-OLD FEMALE WHO WAS ADMITTED DUE TO CHF AND COPD. 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 PER PT, HAD PNA X 2(LAST ONE WAS 3 MONTHS AGO). PER PT, PT LIVES AT HOME 3 MONTH AGO BY HER SELF. DUE TO PNA, PT WAS D/C TO SNF AFTER THE HOSPITALIZATION. PER CHART, PT WAS ON RICKY MECH SOFT WITH THIN LIQUIDS DIET. CURRENTLY, PT IS FULL CODE, BUT NO POLST, REGARDING TUBE FEEDING IF NEEDED. CURRENT STATUS:PER RN, PT WAS FEELING FOOD STUCK IN HER THROAT. PT SEEN AT BEDSIDE IN AM. ALERT, COOPERATIVE, VERBAL, ORIENT X 4. PT WITH NC(2L). RESP DISTRESS WAS NOTED. RR: HIGH 20s TO MID-30s. O2: 98-100, HR: 91-100. PER PT, HAVING NASAL DRIP AND "SPIT" ALL THE TIME. GIVEN PO TRIALS: ICE-CHIPS(TSP), THIN LIQUID(TSP), NECTAR THICK(TSP) AND PUREE(TSP). 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 MILD INCREASED ORAL TRANSIT TIME AND OROPHARYNGEAL TRANSIT TIME, FAIR LARYNGEAL ELEVATION, NO OVERT S/S OF ASPIRATION. HAS (HIGH)RISK FOR ASPIRATION COMPOUNDED OF H/O CVA AND CURRENT RESP INSUFFICIENCY. RECOMMENDATIONS: 1. CHANGED DIET TO MOIST PUREE WITH NECTAR THICK LIQUIDS. (STOP FEEDING PT WHEN PT'S RESP RATE IS OVER 30s) 2. STRICT ASPIRATION PRECAUTIONS WITH DIRECT SUPERVISION. 3. VIDEOSWALLOW STUDY IP OR OP. D/W PT, RN AND THE STAFF. POSTED ASPIRATION PRECAUTIONS SIGN.
[2019-01-18 12:00] VITALS: BP 146/73
[2019-01-18] MEDS: Aztreonam Inj 1 GM in NS 50 ML IVPB SCH ×2 (12:20→21:40)
--- NOTE | 2019-01-18 14:32 | Consultation ---
History of Present Illness General Date patient seen: Jan 18, 2019 Chief Complaint: Dyspnea/Respdistress Present Illness HPI 78 year old female with hx of DM, HTN, PR, CAD, CHF, cervical radiculopathy, CVA , asthma, COPD , sp Bilateral hip replacement, [facility] resident presents to ED on 01/17 with SOB, intermittent cough. Denied CP, f/c, n/v/d. Allergies: Coded Allergies: PENICILLINS (Verified Allergy, Unknown, SWELLING EVERYWHERE, EVEN EYES PER PATIENT, 11/24/11) Medication History Scheduled Amino Acids/Protein Hydrolys (Pro-Stat Liquid), 30 ML ORAL TWICE A DAY, ( Reported) Aspirin* (Aspir 81*), 81 MG ORAL DAILY, (Reported) Atorvastatin Calcium* (Lipitor*), 80 MG ORAL BEDTIME, (Reported) Docusate Sodium* (Colace*), 100 MG ORAL TWICE A DAY, (Reported) Ferrous Sulfate* (Ferrous Sulfate*), 325 MG ORAL DAILY, (Reported) Fish Oil (Fish Oil 1,000 mg Capsule), 1,000 MG ORAL DAILY, (Reported) Furosemide* (Lasix*), 40 MG ORAL DAILY, (Reported) Megestrol Acetate (Megestrol Acetate), 400 MG PO BID, (Reported) Metoprolol Tartrate* (Metoprolol Tartrate*), 12.5 MG ORAL EVERY 12 HOURS, ( Reported) Sennosides (Senna), 2 TAB PO BID, (Reported) Scheduled PRN Acetaminophen* (Acetaminophen 325MG Tablet*), 325 MG ORAL Q4H PRN for Mild Pain (Pain Scale 1-3), (Reported) Acetaminophen* (Acetaminophen 325MG Tablet*), 650 MG ORAL Q4H PRN for Moderate Pain (Pain Scale 4-6), (Reported) Ipratropium/Albuterol Sulfate (DuoNeb 0.5-3(2.5)mg/3ml), 3 ML HHN Q6HR PRN for Shortness of Breath, (Reported) Mag Hydrox/Al Hydrox/Simeth* (Advanced Antacid Liquid*), 30 ML ORAL FOUR TIMES A DAY PRN for indigestion, (Reported) Magnesium Hydroxide* (Milk Of Magnesia*), 30 ML ORAL DAILY PRN for Constipation, (Reported) Nitroglycerin (Nitrostat), 0.4 MG SL Q5M X3 DOSES PRN for CHEST PAIN, (Reported) Ondansetron* (Zofran*), 4 MG ORAL Q6H PRN for Nausea & Vomiting, (Reported) Polyethylene Glycol 3350* (Miralax*), 17 GM ORAL DAILY PRN for Constipation, ( Reported) Tramadol Hcl* (Ultram*), 50 MG ORAL Q6H PRN for Severe Pain (Pain Scale 7-10), ( Reported) Discontinued Medications Acetaminophen* (Acetaminophen*), 650 MG ORAL Q6H PRN for Mild Pain/Temp > 100.5, (Reported) Discontinued Reason: Prescription changed Furosemide* (Lasix*), Unknown Dose ORAL DAILY, (Reported) Discontinued Reason: Prescription changed Metoprolol Succinate* (Metoprolol Succinate*), Unknown Dose ORAL DAILY, ( Reported) Discontinued Reason: Prescription changed Ondansetron Odt* (Zofran Odt*), 4 MG ORAL Q6H PRN for Nausea & Vomiting, ( Reported) Discontinued Reason: Prescription changed Patient History Healthcare decision maker N Resuscitation status Full Code Advanced Directive on File Patient History Narrative Pmhx: as above Shx: Denies: smoking, alcohol use, drug use Fhx: non contributory Review of Systems All Other Systems: negative except mentioned in HPI Physical Exam Physical Exam Narrative GENERAL: Calm in bed, O2 NC, slight short of breath. Oriented x2, no acute distress. CARDIOVASCULAR: No murmurs. LUNGS: Poor air exchange. ABDOMEN: Bowel sounds distant. EXTREMITIES: No cyanosis, clubbing, or edema. NEUROLOGIC: The patient moves all extremities, slightly weak. Last 24 Hour Vital Signs Date Time Temp Pulse Resp B/P (MAP) Pulse Ox O2 Delivery O2 Flow Rate FiO2 01/18/19 08:19 91 20 99 Nasal Cannula 2.0 01/18/19 08:12 96 18 98 Nasal Cannula 2.0 28 01/18/19 08:00 2.0 01/18/19 08:00 Nasal Cannula 2.0 01/18/19 07:28 86 01/18/19 04:00 Nasal Cannula 2.0 01/18/19 04:00 98.5 82 22 131/75 (93) 100 01/18/19 04:00 2.0 01/18/19 03:22 98 01/18/19 00:00 97.7 101 16 131/83 (99) 99 01/18/19 00:00 Nasal Cannula 2.0 01/17/19 23:23 96 01/17/19 20:00 2.0 01/17/19 20:00 Nasal Cannula 2.0 01/17/19 20:00 98.8 100 28 136/76 (96) 99 01/17/19 19:50 98 01/17/19 19:13 Nasal Cannula 2.0 01/17/19 18:22 98.8 92 29 144/98 100 Nasal Cannula 2.0 28 01/17/19 16:08 98.8 88 29 142/68 97 Nasal Cannula 2.0 28 01/17/19 14:40 157/80 Intake and Output 01/17/19 01/18/19 18:59 06:59 Intake Total 0 ml 50 ml Output Total 500 ml Balance 0 ml -450 ml Intake Oral 0 ml 50 ml Output Urine Total 500 ml Laboratory Tests Test 01/17/19 14:48 01/18/19 06:44 Urine Color Pale yellow Urine Appearance Cloudy Urine pH 7 (4.5-8.0) Urine Specific [place] 1.010 (1.005-1.035) Urine Protein Negative (NEGATIVE) Urine Glucose (UA) Negative (NEGATIVE) Urine Ketones Negative (NEGATIVE) Urine Blood 4+ (NEGATIVE) H Urine Nitrite Negative (NEGATIVE) Urine Bilirubin Negative (NEGATIVE) Urine Urobilinogen Normal MG/DL (0.0-1.0) Urine Leukocyte Esterase 3+ (NEGATIVE) H Urine RBC 5-10 /HPF (0 - 2) H Urine WBC 5-10 /HPF (0 - 2) H Urine Squamous Epithelial Cells Occasional /LPF Urine Bacteria Many /HPF (NONE) H White Blood Count 4.4 K/UL (4.8-10.8) L Red Blood Count 3.77 M/UL (4.20-5.40) L Hemoglobin 10.1 G/DL (12.0-16.0) L Hematocrit 32.1 % (37.0-47.0) L Mean Corpuscular Volume 85 FL (80-99) Mean Corpuscular Hemoglobin 26.7 PG (27.0-31.0) L Mean Corpuscular Hemoglobin Concent 31.4 G/DL (32.0-36.0) L Red Cell Distribution Width 16.7 % (11.6-14.8) H Platelet Count 335 K/UL (150-450) Mean Platelet Volume 5.2 FL (6.5-10.1) L Neutrophils (%) (Auto) 80.1 % (45.0-75.0) H Lymphocytes (%) (Auto) 18.5 % (20.0-45.0) L Monocytes (%) (Auto) 0.9 % (1.0-10.0) L Eosinophils (%) (Auto) 0.1 % (0.0-3.0) Basophils (%) (Auto) 0.5 % (0.0-2.0) Sodium Level 133 MMOL/L (136-145) L Potassium Level 4.2 MMOL/L (3.5-5.1) Chloride Level 99 MMOL/L (98-107) Carbon Dioxide Level 24 MMOL/L (21-32) Anion Gap 10 mmol/L (5-15) Blood Urea Nitrogen 22 mg/dL (7-18) H Creatinine 0.8 MG/DL (0.55-1.30) Estimat Glomerular Filtration Rate mL/min (>60) Glucose Level 122 MG/DL (74-106) H Osmolality 298 mOsm/kg (297-317) Uric Acid 8.7 MG/DL (2.6-7.2) H Calcium Level 9.8 MG/DL (8.5-10.1) Total Bilirubin 0.4 MG/DL (0.2-1.0) Aspartate Amino Transf (AST/SGOT) 119 U/L (15-37) H Alanine Aminotransferase (ALT/SGPT) 55 U/L (12-78) Alkaline Phosphatase 129 U/L (46-116) H Troponin I 0.342 ng/mL (0.000-0.056) Pro-B-Type Natriuretic Peptide 2288 pg/mL (0-125) H Total Protein 10.2 G/DL (6.4-8.2) H Albumin 2.9 G/DL (3.4-5.0) L Globulin 7.3 g/dL Albumin/Globulin Ratio 0.4 (1.0-2.7) L Thyroid Stimulating Hormone (TSH) 0.471 uiU/mL (0.358-3.740) Free Thyroxine 1.26 NG/DL (0.76-1.46) Free Triiodothyronine 1.8 pg/mL (2.3-4.2) L Cortisol Pending Microbiology Date/Time Source Procedure Growth Status 01/17/19 14:48 Urine,Clean Catch Urine Culture - Preliminary NO GROWTH Resulted Height (Feet): 5 Height (Inches): 6.00 Weight (Pounds): 127 Medications Current Medications Medications (Trade) Dose Ordered Sig/Charly Route PRN Reason Start Time Stop Time Status Last Admin Dose Admin Albuterol/ Ipratropium (Albuterol/ Ipratropium) 3 ml Q4H PRN HHN dyspnea 01/17/19 18:45 01/22/19 18:44 01/18/19 08:12 Aspirin (Ecotrin) 81 mg DAILY ORAL 01/19/19 09:00 02/18/19 08:59 Aztreonam 1 gm/ Sodium Chloride 50 ml @ 100 mls/hr Q8HR IVPB 01/18/19 12:00 01/25/19 11:59 01/18/19 12:20 Clonazepam (KlonoPIN) 0.5 mg EVERY 12 HOURS PRN ORAL For Anxiety 01/18/19 10:15 01/25/19 10:14 UNV Dextrose (Dextrose 50%) 25 ml Q30M PRN IV Hypoglycemia 01/17/19 18:45 02/16/19 18:44 Dextrose (Dextrose 50%) 50 ml Q30M PRN IV Hypoglycemia 01/17/19 18:45 02/16/19 18:44 Heparin Sodium (Porcine) (Heparin 5000 units/ml) 5,000 units EVERY 12 HOURS SUBQ 01/17/19 21:00 02/16/19 20:59 01/18/19 08:40 Iopamidol (Isovue-370 150ml) 150 ml NOW PRN INJ Radiology Procedure 01/18/19 10:45 01/18/19 23:59 Lorazepam (Ativan 2mg/ml 1ml) 0.5 mg Q4H PRN IV For Anxiety 01/17/19 18:45 01/24/19 18:44 01/18/19 10:26 Methylprednisolone Sodium Succinate (Solu-MEDROL) 60 mg Q6H IV 01/18/19 00:00 02/17/19 00:00 01/18/19 12:20 Nitroglycerin (Ntg) 0.4 mg Q5M X 3 DOSES PRN SL Prn Chest Pain 01/17/19 18:45 02/16/19 18:44 Ondansetron HCl (Zofran) 4 mg Q6H PRN IVP Nausea & Vomiting 01/17/19 18:45 02/16/19 18:44 Promethazine HCl/ Codeine (Phenergan with Codeine) 5 ml Q6H PRN ORAL cough 01/17/19 18:45 02/16/19 18:44 Quetiapine Fumarate (SEROquel) 25 mg Q12HR ORAL 01/18/19 21:00 02/17/19 20:59 Temazepam (Restoril) 15 mg HSPRN PRN ORAL Insomnia 01/17/19 18:45 01/24/19 18:44 Theophylline (Jimmy-Dur) 100 mg EVERY 12 HOURS ORAL 01/17/19 21:00 02/16/19 20:59 01/18/19 08:39 Assessment/Plan Assessment/Plan Abx: Ceftriaxone x1 01/17 Aztreonam 01/18- Assessment: PNA -CXR: Cardiomegaly. Bilateral extensive interstitial and airspace opacities, slightly increased from but similar in distribution to prior study of 2017. Suspect component of chronic interstitial fibrosis with superimposed acute edema or infiltrates -influenza sc neg Afebrile No leukocytosis AST elevation DM HTN PR CAD CHF cervical radiculopathy CVA asthma COPD sp Bilateral hip replacement [facility] resident Plan: -Continue empiric IV Aztreonam #1 for PNA -low threshold to add IV Vancomycin if decompensates -f/u cx -monitor CBC/CMP, temperatures -legionella ag urine -HIV, Hep panel, CBC, CMP am -aspiration precautions Thank you for this consultation. Will continue to follow along with you. Discussed with Katt Go M.D. Jan 18, 2019 14:32
--- NOTE | 2019-01-18 14:49 | General Progress Note ---
Assessment/Plan Problem List: (1) UTI (urinary tract infection) ICD Codes: N39.0 - Urinary tract infection, site not specified SNOMED: 76108175 (2) Anemia ICD Codes: D64.9 - Anemia, unspecified SNOMED: 121373616 (3) Arthritis ICD Codes: M19.90 - Unspecified osteoarthritis, unspecified site SNOMED: 7423823 (4) Hypertension ICD Codes: I10 - Essential (primary) hypertension SNOMED: 00391847 (5) COPD exacerbation ICD Codes: J44.1 - Chronic obstructive pulmonary disease with (acute) exacerbation SNOMED: 813839858, 586917628, 396282055 (6) CHF exacerbation ICD Codes: I50.9 - Heart failure, unspecified SNOMED: 73669804, 060980596, 154158693 (7) Cervical radiculopathy ICD Codes: M54.12 - Radiculopathy, cervical region SNOMED: 49718499 Status: unchanged Assessment/Plan o3 pulm tx abt pain control pt diet cbc bmp am Subjective Constitutional: Reports: weakness Respiratory: Reports: shortness of breath Allergies: Coded Allergies: PENICILLINS (Verified Allergy, Unknown, SWELLING EVERYWHERE, EVEN EYES PER PATIENT, 11/24/11) All Systems: reviewed and negative except above Subjective o2nc calm Objective Last 24 Hour Vital Signs Date Time Temp Pulse Resp B/P (MAP) Pulse Ox O2 Delivery O2 Flow Rate FiO2 01/18/19 08:19 91 20 99 Nasal Cannula 2.0 28 01/18/19 08:12 96 18 98 Nasal Cannula 2.0 28 01/18/19 08:00 2.0 01/18/19 08:00 Nasal Cannula 2.0 01/18/19 07:28 86 01/18/19 04:00 Nasal Cannula 2.0 01/18/19 04:00 98.5 82 22 131/75 (93) 100 01/18/19 04:00 2.0 01/18/19 03:22 98 01/18/19 00:00 97.7 101 16 131/83 (99) 99 01/18/19 00:00 Nasal Cannula 2.0 01/17/19 23:23 96 01/17/19 20:00 2.0 01/17/19 20:00 Nasal Cannula 2.0 01/17/19 20:00 98.8 100 28 136/76 (96) 99 01/17/19 19:50 98 01/17/19 19:13 Nasal Cannula 2.0 01/17/19 18:22 98.8 92 29 144/98 100 Nasal Cannula 2.0 28 01/17/19 16:08 98.8 88 29 142/68 97 Nasal Cannula 2.0 28 Intake and Output 01/17/19 01/18/19 18:59 06:59 Intake Total 0 ml 50 ml Output Total 500 ml Balance 0 ml -450 ml Intake Oral 0 ml 50 ml Output Urine Total 500 ml Laboratory Tests 01/17/19 14:48: Urine Color Pale yellow, Urine Appearance Cloudy, Urine pH 7, Urine Specific [place] 1.010, Urine Protein Negative, Urine Glucose (UA) Negative, Urine Ketones Negative, Urine Blood 4+H, Urine Nitrite Negative, Urine Bilirubin Negative, Urine Urobilinogen Normal, Urine Leukocyte Esterase 3+H, Urine RBC 5- 10H, Urine WBC 5-10H, Urine Squamous Epithelial Cells Occasional, Urine Bacteria ManyH 01/18/19 06:44: White Blood Count 4.4L, Red Blood Count 3.77L, Hemoglobin 10.1L, Hematocrit 32.1L, Mean Corpuscular Volume 85, Mean Corpuscular Hemoglobin 26.7L, Mean Corpuscular Hemoglobin Concent 31.4L, Red Cell Distribution Width 16.7H, Platelet Count 335, Mean Platelet Volume 5.2L, Neutrophils (%) (Auto) 80.1H, Lymphocytes (%) (Auto) 18.5L, Monocytes (%) (Auto) 0.9L, Eosinophils (%) (Auto) 0.1, Basophils (%) (Auto) 0.5, Sodium Level 133L, Potassium Level 4.2, Chloride Level 99, Carbon Dioxide Level 24, Anion Gap 10, Blood Urea Nitrogen 22H, Creatinine 0.8, Estimat Glomerular Filtration Rate , Glucose Level 122H, Osmolality 298, Uric Acid 8.7H, Calcium Level 9.8, Total Bilirubin 0.4, Aspartate Amino Transf (AST/SGOT) 119H, Alanine Aminotransferase (ALT/SGPT) 55, Alkaline Phosphatase 129H, Troponin I 0.342H, Pro-B-Type Natriuretic Peptide 2288H, Total Protein 10.2H, Albumin 2.9L, Globulin 7.3, Albumin/Globulin Ratio 0.4L, Thyroid Stimulating Hormone (TSH) 0.471, Free Thyroxine 1.26, Free Triiodothyronine 1.8L, Cortisol [Pending] Height (Feet): 5 Height (Inches): 6.00 Weight (Pounds): 127 General Appearance: lethargic EENT: normal ENT inspection Neck: normal alignment Cardiovascular: normal peripheral pulses, normal rate, regular rhythm Respiratory/Chest: chest wall non-tender, decreased breath sounds, expiratory wheezing Abdomen: normal bowel sounds, non tender, soft Extremities: normal inspection Edema: no edema noted Arm (L), no edema noted Arm (R), no edema noted Leg (L), no edema noted Leg (R), no edema noted Pedal (L), no edema noted Pedal (R), no edema noted Generalized Neurologic: motor weakness Skin: normal pigmentation, warm/dry Rio Lema DO Jan 18, 2019 14:48
--- NOTE | 2019-01-18 15:14 | NUR ---
RD ASSESSMENT & RECOMMENDATIONS SEE CARE ACTIVITY FOR COMPLETE ASSESSMENT DAILY ESTIMATED NEEDS: Needs based on wasting, pulmonary/ 52kg 28-33 kcals/kg 3743-8007 total kcals 1.0-1.5 g protein/kg 52-78 g total protein 25-30 mL/kg 8631-5706 total fluid mLs NUTRITION DIAGNOSIS: Swallowing difficulty R/T dysphagia w/ h/o CVA + PNA as evidenced by DOCUMENT PREPARER MICROFILMING recommends pureed moist texture, NTL at this time CURRENT DIET:REGULAR, pureed moist, NTL PO DIET RECOMMENDATIONS: LOW NA/ texture per DOCUMENT PREPARER MICROFILMING ADDITIONAL RECOMMENDATIONS: * Txr pt to bed with bedscale, obtain calibrated bedscale wt * Weekly wt monitoring- pt reports recent wt loss * Ensure Enlive TID w/ meals * Monitor PO intake and tolerance closely
[2019-01-18 15:56] LABS: APPEARANCE,URINE CLOUDY; BILIRUBIN, URINE NEGATIVE (NEGATIVE); GLUCOSE, URINE (UA) NEGATIVE (NEGATIVE); KETONES,URINE 1+ (NEGATIVE); LEUKOCYTE ESTERASE ,URINE 2+ (NEGATIVE); NITRITE,URINE NEGATIVE (NEGATIVE); PH,URINE 6 (4.5-8.0); PROTEIN,URINE 1+ (NEGATIVE); UROBILINOGEN,URINE NORMAL MG/DL (0.0-1.0)
--- NOTE | 2019-01-18 15:56 | NUR ---
P.T NOTE: P.T EVALUATION COMPLETED AND TREATMENT INITIATED. PLEASE REFER TO P.T EVALUATION FOR CURRENT FUNCTIONAL STATUS. PATIENT IS LIMITED BY GENERALIZED WEAKNESS , POOR ACTIVITY TOLERANCE AND DIFFICULTY BREATHING LEADING TO INCREASED ANXIETY ESPECIALLY WHEN IN SUPINE FLAT POSITION. VITALS WERE STABLE WITH SAT BETWEEN 88-94% AT 2 L/MIN VIA NC ALTHROUGHOUT P.T EVALUATION/TX. PATIENT CURRENTLY REQUIRE MOD A X 1 AND EXTENDED TIME FOR BED MOBILITY , TRANSFERS AND GAIT FOR SHORT DISTANCES USING THE FWW. SKILLED P.T SERVICE IS WARRANTED TO INCREASE STRENGTH, BALANCE, AND ENDURANCE TO INCREASE HER ACTIVITY TOLERANCE ,SAFETY AND INDEPENDENCE IN FUNCTIONAL MOBILITIES. RECOMMEND RETURN TO SNF FOR FURTHER REHAB. THANK YOU FOR THIS REFERRAL.
[2019-01-18 15:58] LABS: COLOR,URINE YELLOW
[2019-01-18 16:00] VITALS: BP 128/82
--- NOTE | 2019-01-18 17:12 | Consultation ---
History of Present Illness General Date patient seen: Jan 18, 2019 Time patient seen: 17:08 Chief Complaint: Dyspnea/Respdistress Present Illness HPI Patient brought in by ambulance from [facility] due to respiratory distress since 1200 today, and CHF exacerbation. Patient is on oxygen via NC 2L/minm sp02 is 98%. Cardiology consulted for elevated Troponin. CXR with fluid overload, BNP elevated. Allergies: Coded Allergies: PENICILLINS (Verified Allergy, Unknown, SWELLING EVERYWHERE, EVEN EYES PER PATIENT, 11/24/11) Medication History Scheduled Amino Acids/Protein Hydrolys (Pro-Stat Liquid), 30 ML ORAL TWICE A DAY, ( Reported) Aspirin* (Aspir 81*), 81 MG ORAL DAILY, (Reported) Atorvastatin Calcium* (Lipitor*), 80 MG ORAL BEDTIME, (Reported) Docusate Sodium* (Colace*), 100 MG ORAL TWICE A DAY, (Reported) Ferrous Sulfate* (Ferrous Sulfate*), 325 MG ORAL DAILY, (Reported) Fish Oil (Fish Oil 1,000 mg Capsule), 1,000 MG ORAL DAILY, (Reported) Furosemide* (Lasix*), 40 MG ORAL DAILY, (Reported) Megestrol Acetate (Megestrol Acetate), 400 MG PO BID, (Reported) Metoprolol Tartrate* (Metoprolol Tartrate*), 12.5 MG ORAL EVERY 12 HOURS, ( Reported) Sennosides (Senna), 2 TAB PO BID, (Reported) Scheduled PRN Acetaminophen* (Acetaminophen 325MG Tablet*), 325 MG ORAL Q4H PRN for Mild Pain (Pain Scale 1-3), (Reported) Acetaminophen* (Acetaminophen 325MG Tablet*), 650 MG ORAL Q4H PRN for Moderate Pain (Pain Scale 4-6), (Reported) Ipratropium/Albuterol Sulfate (DuoNeb 0.5-3(2.5)mg/3ml), 3 ML HHN Q6HR PRN for Shortness of Breath, (Reported) Mag Hydrox/Al Hydrox/Simeth* (Advanced Antacid Liquid*), 30 ML ORAL FOUR TIMES A DAY PRN for indigestion, (Reported) Magnesium Hydroxide* (Milk Of Magnesia*), 30 ML ORAL DAILY PRN for Constipation, (Reported) Nitroglycerin (Nitrostat), 0.4 MG SL Q5M X3 DOSES PRN for CHEST PAIN, (Reported) Ondansetron* (Zofran*), 4 MG ORAL Q6H PRN for Nausea & Vomiting, (Reported) Polyethylene Glycol 3350* (Miralax*), 17 GM ORAL DAILY PRN for Constipation, ( Reported) Tramadol Hcl* (Ultram*), 50 MG ORAL Q6H PRN for Severe Pain (Pain Scale 7-10), ( Reported) Discontinued Medications Acetaminophen* (Acetaminophen*), 650 MG ORAL Q6H PRN for Mild Pain/Temp > 100.5, (Reported) Discontinued Reason: Prescription changed Furosemide* (Lasix*), Unknown Dose ORAL DAILY, (Reported) Discontinued Reason: Prescription changed Metoprolol Succinate* (Metoprolol Succinate*), Unknown Dose ORAL DAILY, ( Reported) Discontinued Reason: Prescription changed Ondansetron Odt* (Zofran Odt*), 4 MG ORAL Q6H PRN for Nausea & Vomiting, ( Reported) Discontinued Reason: Prescription changed Patient History Healthcare decision maker N Resuscitation status Full Code Advanced Directive on File Review of Systems Eye: Reports: no symptoms Respiratory: Reports: orthopnea, shortness of breath Cardiovascular: Reports: PND Gastrointestinal: Reports: no symptoms Genitourinary: Reports: no symptoms Musculoskeletal: Reports: no symptoms Skin: Reports: no symptoms Psychiatric: Reports: no symptoms Neurological: Reports: no symptoms Endocrine: Reports: no symptoms Hematologic/Lymphatic: Reports: no symptoms Physical Exam General Appearance: no apparent distress Lines, tubes and drains: peripheral HEENT: normocephalic, atraumatic, anicteric, mucous membranes moist Neck: non-tender, normal alignment, supple Respiratory/Chest: chest wall non-tender, crackles/rales, rhonchi - bilaterally Cardiovascular/Chest: normal peripheral pulses, normal rate, regular rhythm Abdomen: normal bowel sounds, non tender, soft, no organomegaly Extremities: normal range of motion, non-tender, normal inspection, no calf tenderness Skin Exam: normal pigmentation, warm/dry 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, no motor/sensory deficits Last 24 Hour Vital Signs Date Time Temp Pulse Resp B/P (MAP) Pulse Ox O2 Delivery O2 Flow Rate FiO2 01/18/19 16:00 2.0 01/18/19 16:00 Nasal Cannula 2.0 01/18/19 15:47 102 01/18/19 12:00 2.0 01/18/19 12:00 98.1 111 28 146/73 (97) 100 01/18/19 12:00 Nasal Cannula 2.0 Nasal Cannula 2.0 01/18/19 11:34 109 01/18/19 08:19 91 20 99 Nasal Cannula 2.0 28 01/18/19 08:12 96 18 98 Nasal Cannula 2.0 28 01/18/19 08:00 97.9 94 28 138/76 (96) 100 01/18/19 08:00 2.0 01/18/19 08:00 Nasal Cannula 2.0 01/18/19 07:28 86 01/18/19 04:00 Nasal Cannula 2.0 01/18/19 04:00 98.5 82 22 131/75 (93) 100 01/18/19 04:00 2.0 01/18/19 03:22 98 01/18/19 00:00 97.7 101 16 131/83 (99) 99 01/18/19 00:00 Nasal Cannula 2.0 01/17/19 23:23 96 01/17/19 20:00 2.0 01/17/19 20:00 Nasal Cannula 2.0 01/17/19 20:00 98.8 100 28 136/76 (96) 99 01/17/19 19:50 98 01/17/19 19:13 Nasal Cannula 2.0 01/17/19 18:22 98.8 92 29 144/98 100 Nasal Cannula 2.0 28 Intake and Output 01/17/19 01/18/19 18:59 06:59 Intake Total 0 ml 50 ml Output Total 500 ml Balance 0 ml -450 ml Intake Oral 0 ml 50 ml Output Urine Total 500 ml Laboratory Tests Test 01/18/19 06:44 01/18/19 15:20 White Blood Count 4.4 K/UL (4.8-10.8) L Red Blood Count 3.77 M/UL (4.20-5.40) L Hemoglobin 10.1 G/DL (12.0-16.0) L Hematocrit 32.1 % (37.0-47.0) L Mean Corpuscular Volume 85 FL (80-99) Mean Corpuscular Hemoglobin 26.7 PG (27.0-31.0) L Mean Corpuscular Hemoglobin Concent 31.4 G/DL (32.0-36.0) L Red Cell Distribution Width 16.7 % (11.6-14.8) H Platelet Count 335 K/UL (150-450) Mean Platelet Volume 5.2 FL (6.5-10.1) L Neutrophils (%) (Auto) 80.1 % (45.0-75.0) H Lymphocytes (%) (Auto) 18.5 % (20.0-45.0) L Monocytes (%) (Auto) 0.9 % (1.0-10.0) L Eosinophils (%) (Auto) 0.1 % (0.0-3.0) Basophils (%) (Auto) 0.5 % (0.0-2.0) Sodium Level 133 MMOL/L (136-145) L Potassium Level 4.2 MMOL/L (3.5-5.1) Chloride Level 99 MMOL/L (98-107) Carbon Dioxide Level 24 MMOL/L (21-32) Anion Gap 10 mmol/L (5-15) Blood Urea Nitrogen 22 mg/dL (7-18) H Creatinine 0.8 MG/DL (0.55-1.30) Estimat Glomerular Filtration Rate mL/min (>60) Glucose Level 122 MG/DL (74-106) H Osmolality 298 mOsm/kg (297-317) Uric Acid 8.7 MG/DL (2.6-7.2) H Calcium Level 9.8 MG/DL (8.5-10.1) Total Bilirubin 0.4 MG/DL (0.2-1.0) Aspartate Amino Transf (AST/SGOT) 119 U/L (15-37) H Alanine Aminotransferase (ALT/SGPT) 55 U/L (12-78) Alkaline Phosphatase 129 U/L (46-116) H Troponin I 0.342 ng/mL (0.000-0.056) Pro-B-Type Natriuretic Peptide 2288 pg/mL (0-125) H Total Protein 10.2 G/DL (6.4-8.2) H Albumin 2.9 G/DL (3.4-5.0) L Globulin 7.3 g/dL Albumin/Globulin Ratio 0.4 (1.0-2.7) L Thyroid Stimulating Hormone (TSH) 0.471 uiU/mL (0.358-3.740) Free Thyroxine 1.26 NG/DL (0.76-1.46) Free Triiodothyronine 1.8 pg/mL (2.3-4.2) L Cortisol Pending Urine Color Yellow Urine Appearance Cloudy Urine pH 6 (4.5-8.0) Urine Specific [place] 1.015 (1.005-1.035) Urine Protein 1+ (NEGATIVE) H Urine Glucose (UA) Negative (NEGATIVE) Urine Ketones 1+ (NEGATIVE) H Urine Blood 3+ (NEGATIVE) H Urine Nitrite Negative (NEGATIVE) Urine Bilirubin Negative (NEGATIVE) Urine Urobilinogen Normal MG/DL (0.0-1.0) Urine Leukocyte Esterase 2+ (NEGATIVE) H Urine RBC 10-15 /HPF (0 - 2) H Urine WBC 5-10 /HPF (0 - 2) H Urine Squamous Epithelial Cells Few /LPF (NONE/OCC) Urine Calcium Oxalate Crystals Few /LPF (NONE) Urine Bacteria Many /HPF (NONE) H Urine Osmolality 577 mOsm/kg (429-449) H Urine Random Sodium 112 mmol/L (20-110) H Height (Feet): 5 Height (Inches): 6.00 Weight (Pounds): 127 Medications Current Medications Medications (Trade) Dose Ordered Sig/Charly Route PRN Reason Start Time Stop Time Status Last Admin Dose Admin Albuterol/ Ipratropium (Albuterol/ Ipratropium) 3 ml Q4H PRN HHN dyspnea 01/17/19 18:45 01/22/19 18:44 01/18/19 08:12 Aspirin (Ecotrin) 81 mg DAILY ORAL 01/19/19 09:00 02/18/19 08:59 Aztreonam 1 gm/ Sodium Chloride 50 ml @ 100 mls/hr Q8HR IVPB 01/18/19 12:00 01/25/19 11:59 01/18/19 12:20 Dextrose (Dextrose 50%) 25 ml Q30M PRN IV Hypoglycemia 01/17/19 18:45 02/16/19 18:44 Dextrose (Dextrose 50%) 50 ml Q30M PRN IV Hypoglycemia 01/17/19 18:45 02/16/19 18:44 Heparin Sodium (Porcine) (Heparin 5000 units/ml) 5,000 units EVERY 12 HOURS SUBQ 01/17/19 21:00 02/16/19 20:59 01/18/19 08:40 Iopamidol (Isovue-370 150ml) 150 ml NOW PRN INJ Radiology Procedure 01/18/19 10:45 01/18/19 23:59 Lorazepam (Ativan 2mg/ml 1ml) 0.5 mg Q4H PRN IV For Anxiety 01/17/19 18:45 01/24/19 18:44 01/18/19 10:26 Methylprednisolone Sodium Succinate (Solu-MEDROL) 60 mg Q6H IV 01/18/19 00:00 02/17/19 00:00 01/18/19 12:20 Nitroglycerin (Ntg) 0.4 mg Q5M X 3 DOSES PRN SL Prn Chest Pain 01/17/19 18:45 02/16/19 18:44 Ondansetron HCl (Zofran) 4 mg Q6H PRN IVP Nausea & Vomiting 01/17/19 18:45 02/16/19 18:44 Promethazine HCl/ Codeine (Phenergan with Codeine) 5 ml Q6H PRN ORAL cough 01/17/19 18:45 02/16/19 18:44 Quetiapine Fumarate (SEROquel) 25 mg Q12HR ORAL 01/18/19 21:00 02/17/19 20:59 Temazepam (Restoril) 15 mg HSPRN PRN ORAL Insomnia 01/17/19 18:45 01/24/19 18:44 Theophylline (Jimmy-Dur) 100 mg EVERY 12 HOURS ORAL 01/17/19 21:00 02/16/19 20:59 01/18/19 08:39 Assessment/Plan Status: stable Assessment/Plan Assessment 1. COPD exacerbation. 2. UTI. 3. Shortness breath. 4. Elevated troponin. 5. Anemia. 6. CHF. 7. Hypertension. 8. Osteoarthritis. 9. Cervical radiculopathy. Plan Echocardiogram to evaluate filling pressures Serial EKG and Troponin Hold heparin Diuresis net negative 1 liter/day, Lasix IV 40 mg BID Fluid restriction Daily weights Dr Burgess to follow tomorrow Marcelo Booth MD Jan 18, 2019 17:12
[2019-01-18] MEDS ORDERED: Tubing IV Secondary IV ONE (17:40)
[2019-01-18] MEDS ORDERED: NS 275ml ONE (17:40)
--- NOTE | 2019-01-18 18:58 | NUR ---
NURSE NOTES: Report received from Mark Mccullough RN. Patient seen in bed in semi ely position. Alert, verbally responsive, able to make needs known. Denies any pain. continues on oxygen NC @ 2L/min with Sp02 98% at this time. Iv site is to left AC 20g and is intact. bed is in lowest position. Call light is within easy reach while in bed. Will continue to monitor.
--- NOTE | 2019-01-18 19:12 | NUR ---
HAND-OFF: Report given to Parminder Morales RN.
[2019-01-18 20:00] VITALS: BP 134/83
[2019-01-19] VITALS: BP 144/72
[2019-01-19 04:00] VITALS: BP 136/78
[2019-01-19] MEDS: Solu-MEDROL 125mg Inj IV SCH ×2 (05:31→21:57)
[2019-01-19] MEDS: Aztreonam Inj 1 GM in NS 50 ML IVPB SCH ×3 (05:32→21:59)
[2019-01-19 06:05] LABS: BASOPHILS % (AUTO) 0.6 % (0.0-2.0); HEMATOCRIT 31.3 % (37.0-47.0); HEMOGLOBIN 9.9 G/DL (12.0-16.0); LYMPHOCYTES % (AUTO) 13.4 % (20.0-45.0); MEAN CORPUSCULAR VOLUME 85 FL (80-99); MONOCYTES % (AUTO) 5.5 % (1.0-10.0); NEUTROPHILS % (AUTO) 80.6 % (45.0-75.0); PLATELET COUNT 357 K/UL (150-450); RED BLOOD COUNT 3.68 M/UL (4.20-5.40); RED CELL DISTRIBUTION WIDTH 17.3 % (11.6-14.8); WHITE BLOOD COUNT 4.8 K/UL (4.8-10.8)
[2019-01-19 06:45] LABS: ALANINE AMINOTRANSFERASE 55 U/L (12-78); ALBUMIN 2.9 G/DL (3.4-5.0); ALBUMIN/GLOBULIN RATIO 0.4 (1.0-2.7); ALKALINE PHOSPHATASE 118 U/L (46-116); ANION GAP 5 mmol/L (5-15); ASPARTATE AMINO TRANSFERASE 99 U/L (15-37); BILIRUBIN,TOTAL 0.3 MG/DL (0.2-1.0); BLOOD UREA NITROGEN 32 mg/dL (7-18); CALCIUM 9.9 MG/DL (8.5-10.1); CARBON DIOXIDE 28 MMOL/L (21-32); CHLORIDE 103 MMOL/L (98-107); CREATININE 0.9 MG/DL (0.55-1.30); LACTATE DEHYDROGENASE 463 U/L (81-234); POTASSIUM 4.4 MMOL/L (3.5-5.1); SODIUM 136 MMOL/L (136-145)
[2019-01-19 07:02] LABS: % IRON SATURATION 25 % (15-50); IRON 56 ug/dL (50-175); TOTAL IRON BINDING CAPACITY 222 ug/dL (250-450)
--- NOTE | 2019-01-19 07:20 | NUR ---
NURSE NOTES: Report given to HUSSEIN Cormier
[2019-01-19 08:00] VITALS: BP 142/76
--- NOTE | 2019-01-19 08:02 | NUR ---
NURSE NOTES: Patient alert and oriented x4. quality assurance monitor chassis showing SR. 2 L NC saturating 99%, complains of claustrophobia of the room, RR 18. Skin intact, Purewick intact. L ac 20 gauge. No new orders at this time. Will continue plan of care.
[2019-01-19] MEDS: Theophylline ER 100mg ORAL SCH ×2 (08:39→21:57)
[2019-01-19] MEDS: Heparin 5000 units/ml inj SUBQ SCH ×2 (08:41→22:00)
[2019-01-19] MEDS ORDERED: Aspirin EC 81mg tab ORAL SCH (09:00)
--- NOTE | 2019-01-19 09:11 | NUR ---
RADIOLOGY DEPT., CHEST X-RAY DONE.-P.DYE
--- NOTE | 2019-01-19 09:32 | Diagnostic Imaging Report ---
Indication: Dyspnea Technique: One view of the chest Comparison: 01/17/2019 Findings: The heart is enlarged. Bilateral interstitial disease and nodularity, retrocardiac consolidative opacities appear slightly less striking than on the prior exam. The heart remains enlarged. There is blunting of bilateral costophrenic sulci. This appears unchanged. Impression: Perhaps slight improvement of bilateral interstitial and airspace and nodular opacities, as described, particularly in the left lower lobe. Considerable disease persists, component which may be chronic. Unchanged small bilateral pleural effusions and cardiomegaly
--- NOTE | 2019-01-19 09:32 | Diagnostic Imaging Report ---
ndication: Shortness of breath with respiratory distress Technique: IV administration nonionic contrast. Spiral acquisitions obtained from the lung bases to the lung apices. Multiplanar and 3-D reconstructions were generated. Total dose length product 726.82 mGycm. CTDIvol(s) 22.91 mGy. Dose reduction achieved using automated exposure control Comparison: none Findings: There is some image degradation due to respiratory motion artifact. Pulmonary arteries are overall well opacified. No intraluminal filling defects or other findings to suggest acute pulmonary embolus demonstrated. The main pulmonary artery is ectatic, measuring 3.7 cm in diameter and is larger in caliber than the ascending thoracic aorta. The left main pulmonary artery is also ectatic, measuring 2.7 cm in diameter. No right ventricular dilatation is evident. No thoracic aortic aneurysm or dissection. The great neck vessels are tortuous, otherwise unremarkable. Numerous bullae and subpleural blebs are demonstrated, predominantly in the upper lobes bilaterally. There are multiple areas of honeycombing as well as mild bronchiectatic change. This is fairly extensive within the bilateral lower lobes, more scattered and peripheral in the upper lobes. No definite acute infiltrates. No effusions. No definite masses. There is a pneumomediastinum, with gas tracking anterior to the pericardium, along side the distal trachea, along the left common carotid artery and internal jugular vein, and along side the mid esophagus but gas appears to communicate with a large medial paratracheal bleb The heart is enlarged, demonstrates a left ventricular hypertrophy configuration. No pericardial effusion. No mediastinal or hilar mass or adenopathy. There is a 19 mm nodule in the lower pole of the right thyroid lobe. The bones demonstrate severe degenerative changes of both shoulders. There are extensive degenerative changes of the thoracic spine. The included upper abdominal anatomy demonstrates mildly ectatic extrahepatic bile ducts, without evidence of downstream obstructive pathology. Impression: Negative for acute pulmonary embolus or other acute thoracic vascular pathology Pneumomediastinum. Suspect due to a ruptured right-sided medial bleb Evidence of extensive chronic pulmonary parenchymal interstitial disease, with areas of honeycombing and bronchiectasis No definite acute pulmonary parenchymal process Ectatic main and left main pulmonary arteries, suggestive of pulmonary arterial hypertension Bullae and subpleural blebs, may be related to the interstitial fibrotic process or could represent COPD changes Mild cardiomegaly with left ventricular hypertrophy 19 mm right lower pole thyroid nodule. Recommend further evaluation with sonography Degenerative changes of the thoracic spine and of both shoulders Findings discussed by phone with Dr. Chadwick at the time of interpretation The CT scanner at [facility] is accredited by the [employer] and the scans are performed using protocols designed to limit radiation exposure to as low as reasonably achievable to attain images of sufficient resolution adequate for diagnostic evaluation.
--- NOTE | 2019-01-19 09:33 | Cardiology Report ---
APPROVED REPORT EXAM: Two-dimensional and M-mode echocardiogram with Doppler and color Doppler. INDICATION CAD M-Mode DIMENSIONS IVSd1.4 (0.7-1.1cm)Left Atrium (MM)3.6 (1.6-4.0cm) LVDd4.1 (3.5-5.6cm)Aortic Root3.7 (2.0-3.7cm) PWd1.1 (0.7-1.1cm)Aortic Cusp Exc.2.0 (1.5-2.0cm) LVDs2.6 (2.5-4.0cm) PWs1.4 cm Normal left ventricular chamber size, systolic function and wall motion. Left ventricular ejection fraction estimated to be 65 %. Moderate left ventricular hypertrophy by 2D. Anterior Echo-free space, may be due to pericardial fat or effusion. Left atrial size at upper limits of normal. Right cardiac chamber sizes are within normal limits. Moderate focal aortic valve sclerosis with adequate cusp excursion. Thickened mitral valve leaflets with normal excursion. Mitral annulus and aortic root calcification. Pulmonic valve not well visualized. Normal tricuspid valve structure. IVC measured at 1.7 cm with slight physiologic collapse A color flow and spectral Doppler study was performed and revealed: Trace aortic insufficiency. Trace to mild mitral regurgitation. Mitral diastolic velocities suggest reduced left ventricular relaxation c/w mild LV diastolic dysfunction (Grade I). Mild to moderate tricuspid regurgitation. Tricuspid systolic velocities suggests peak right ventricular systolic pressure of 72 mmHg, consistent with severe pulmonary hypertension. Pulmonic regurgitation present.
--- NOTE | 2019-01-19 09:33 | Diagnostic Imaging Report ---
APPROVED REPORT CPT Code: 63612 Present Symptoms Shortness of breath BILATERAL: Imaging reveals a patent deep venous system bilaterally. There is no evidence of thrombus within the common femoral, superficial femoral, popliteal or tibial segments. The greater saphenous veins are within normal limits. Doppler indicates normal spontaneous flow within these segments.
--- NOTE | 2019-01-19 09:40 | Pulmonology Progress Note ---
Assessment/Plan Problems: (1) Acute respiratory failure (2) COPD exacerbation (3) Pulmonary hypertension (4) Pulmonary fibrosis (5) Elevated troponin (6) Protein-calorie malnutrition, severe (7) Hypertension Assessment/Plan taper steroids continue abx until sputum is available CT chest reviewed, pt has extensive fibrosis and chronic changes Echo reviewed, Grade one diastolic dysfunction trial of lidocaine inhalers and chronic Methadone to suppress dyspnea. Poor overall prognosis. Subjective ROS Limited/Unobtainable: No Interval Events: still short of breath Allergies: Coded Allergies: PENICILLINS (Verified Allergy, Unknown, SWELLING EVERYWHERE, EVEN EYES PER PATIENT, 11/24/11) Objective Last 24 Hour Vital Signs Date Time Temp Pulse Resp B/P (MAP) Pulse Ox O2 Delivery O2 Flow Rate FiO2 01/19/19 08:00 2.0 01/19/19 08:00 Nasal Cannula 2.0 Nasal Cannula 2.0 01/19/19 04:29 87 01/19/19 04:00 98.4 88 20 136/78 (97) 97 01/19/19 04:00 2.0 01/19/19 04:00 Nasal Cannula 2.0 Nasal Cannula 2.0 01/19/19 00:00 Nasal Cannula 2.0 Nasal Cannula 2.0 01/19/19 00:00 97.7 87 29 144/72 (96) 99 01/18/19 23:24 86 01/18/19 21:52 98 20 Nasal Cannula 2.0 28 01/18/19 20:00 98.7 99 20 134/83 (100) 100 01/18/19 20:00 2.0 01/18/19 20:00 Nasal Cannula 2.0 01/18/19 19:25 95 01/18/19 16:00 2.0 01/18/19 16:00 98.1 105 16 128/82 (97) 99 01/18/19 16:00 Nasal Cannula 2.0 01/18/19 15:47 102 01/18/19 12:00 2.0 01/18/19 12:00 98.1 111 28 146/73 (97) 100 01/18/19 12:00 Nasal Cannula 2.0 Nasal Cannula 2.0 01/18/19 11:34 109 Intake and Output 01/18/19 01/19/19 19:00 07:00 Intake Total 290 ml 220 ml Output Total 400 ml Balance -110 ml 220 ml Intake Oral 240 ml 120 ml IV Total 50 ml 100 ml Output Urine Total 400 ml # Voids 3 # Bowel Movements 2 General Appearance: cachetic Respiratory/Chest: chest wall non-tender, lungs clear Cardiovascular: normal peripheral pulses, normal rate Abdomen: normal bowel sounds, soft, non tender Genitourinary: normal external genitalia Extremities: no clubbing Skin: no lesions Microbiology Date/Time Source Procedure Growth Status 01/17/19 13:20 Blood Blood Culture - Preliminary NO GROWTH AFTER 24 HOURS Resulted 01/17/19 13:20 Blood Blood Culture - Preliminary NO GROWTH AFTER 24 HOURS Resulted 01/17/19 14:48 Nasal Nares MRSA Culture - Final NO METHICILLIN RESISTANT STAPH AUREUS... Complete 01/17/19 13:20 Nasal Nares Influenza Types A,B Antigen (GISELLE) - Final Complete 01/18/19 15:20 Urine,Clean Catch Urine Culture - Preliminary NO GROWTH Resulted 01/17/19 14:48 Urine,Clean Catch Urine Culture - Final Mixed Gram Positive Organism Complete 01/17/19 14:48 Rectum - Final NO CARBAPENEM-RESISTANT ENTEROBACTERI... Complete 01/17/19 14:48 Rectum VRE Culture - Final NO VANCOMYCIN RESISTANT ENTEROCOCCUS ... Complete Laboratory Tests 01/18/19 15:20: Urine Color Yellow, Urine Appearance Cloudy, Urine pH 6, Urine Specific [place] 1.015, Urine Protein 1+H, Urine Glucose (UA) Negative, Urine Ketones 1+H, Urine Blood 3+H, Urine Nitrite Negative, Urine Bilirubin Negative, Urine Urobilinogen Normal, Urine Leukocyte Esterase 2+H, Urine RBC 10-15H, Urine WBC 5-10H, Urine Squamous Epithelial Cells Few, Urine Calcium Oxalate Crystals Few, Urine Bacteria ManyH, Urine Osmolality 577H, Urine Random Sodium 112H 01/19/19 04:00: White Blood Count 4.8, Red Blood Count 3.68L, Hemoglobin 9.9L, Hematocrit 31.3L , Mean Corpuscular Volume 85, Mean Corpuscular Hemoglobin 26.9L, Mean Corpuscular Hemoglobin Concent 31.6L, Red Cell Distribution Width 17.3H, Platelet Count 357, Mean Platelet Volume 5.7L, Neutrophils (%) (Auto) 80.6H, Lymphocytes (%) (Auto) 13.4L, Monocytes (%) (Auto) 5.5, Eosinophils (%) (Auto) 0.0, Basophils (%) (Auto) 0.6, Differential Total Cells Counted 100, Neutrophils % (Manual) 74, Lymphocytes % (Manual) 19L, Monocytes % (Manual) 7, Eosinophils % (Manual) 0, Basophils % (Manual) 0, Band Neutrophils 0, Platelet Estimate Adequate, Platelet Morphology Normal, Erythrocyte Sedimentation Rate 100H, Reticulocyte Count [Pending], Prothrombin Time 10.9, Prothromb Time International Ratio 1.0, Activated Partial Thromboplast Time 27, Sodium Level 136, Potassium Level 4.4, Chloride Level 103, Carbon Dioxide Level 28, Anion Gap 5, Blood Urea Nitrogen 32H, Creatinine 0.9, Estimat Glomerular Filtration Rate , Glucose Level 130H, Calcium Level 9.9, Iron Level 56, Total Iron Binding Capacity 222L, Percent Iron Saturation 25, Unsaturated Iron Binding 166, Total Bilirubin 0.3, Aspartate Amino Transf (AST/SGOT) 99H, Alanine Aminotransferase ( ALT/SGPT) 55, Alkaline Phosphatase 118H, Lactate Dehydrogenase 463H, Troponin I 0.319H, Pro-B-Type Natriuretic Peptide 1523H, Total Protein 10.0H, Albumin 2.9L , Globulin 7.1, Albumin/Globulin Ratio 0.4L, Carcinoembryonic Antigen [Pending] , Vitamin B12 Level 719, Folate 9.8, Hepatitis A IgM Antibody [Pending], Hepatitis B Surface Antigen [Pending], Hepatitis B Core IgM Antibody [Pending], Hepatitis C Antibody [Pending], HIV (1&2) Antibody Rapid Negative Current Medications Medications (Trade) Dose Ordered Sig/Charly Route PRN Reason Start Time Stop Time Status Last Admin Dose Admin Albuterol/ Ipratropium (Albuterol/ Ipratropium) 3 ml Q4H PRN HHN dyspnea 01/17/19 18:45 01/22/19 18:44 01/18/19 08:12 Aspirin (Ecotrin) 81 mg DAILY ORAL 01/19/19 09:00 02/18/19 08:59 01/19/19 08:39 Aztreonam 1 gm/ Sodium Chloride 50 ml @ 100 mls/hr Q8HR IVPB 01/18/19 12:00 01/25/19 11:59 01/19/19 05:32 Dextrose (Dextrose 50%) 25 ml Q30M PRN IV Hypoglycemia 01/17/19 18:45 02/16/19 18:44 Dextrose (Dextrose 50%) 50 ml Q30M PRN IV Hypoglycemia 01/17/19 18:45 02/16/19 18:44 Heparin Sodium (Porcine) (Heparin 5000 units/ml) 5,000 units EVERY 12 HOURS SUBQ 01/17/19 21:00 02/16/19 20:59 01/19/19 08:41 Lorazepam (Ativan 2mg/ml 1ml) 0.5 mg Q4H PRN IV For Anxiety 01/17/19 18:45 01/24/19 18:44 01/18/19 10:26 Methylprednisolone Sodium Succinate (Solu-MEDROL) 60 mg Q6H IV 01/18/19 00:00 02/17/19 00:00 01/19/19 05:31 Nitroglycerin (Ntg) 0.4 mg Q5M X 3 DOSES PRN SL Prn Chest Pain 01/17/19 18:45 02/16/19 18:44 Ondansetron HCl (Zofran) 4 mg Q6H PRN IVP Nausea & Vomiting 01/17/19 18:45 02/16/19 18:44 01/18/19 18:03 Promethazine HCl/ Codeine (Phenergan with Codeine) 5 ml Q6H PRN ORAL cough 01/17/19 18:45 02/16/19 18:44 Quetiapine Fumarate (SEROquel) 25 mg Q12HR ORAL 01/18/19 21:00 02/17/19 20:59 01/19/19 08:39 Temazepam (Restoril) 15 mg HSPRN PRN ORAL Insomnia 01/17/19 18:45 01/24/19 18:44 Theophylline (Jimmy-Dur) 100 mg EVERY 12 HOURS ORAL 01/17/19 21:00 02/16/19 20:59 01/19/19 08:39 Jersey Chadwick MD Jan 19, 2019 09:40
[2019-01-19] MEDS ORDERED: Lidocaine 1% MPF 10mg/ml 5ml HHN PRN ×3 (09:45→17:36)
--- NOTE | 2019-01-19 10:11 | NUR ---
[facility] SEPAR[employer]OR OF BILLING SI:CHF . COPD VS: BP 144/72, P 98, T 97.7, RR 29, SpO2 97 on 2.0L NC RBC 3.68, ESR 100, BUN 32, Glucose 130, AST 99 IS:ASPIRIN 81mg SEROQUEL 25mg AZTREONAM 50ml IVPB SOLU-MEDROL 60mg IV HEPARIN SUBQ ULICES-DUR 100mg SDU STATUS
--- NOTE | 2019-01-19 10:12 | Infectious Diseases Prog Note ---
Assessment/Plan Assessment/Plan Abx: Ceftriaxone x1 01/17 Aztreonam 01/18- Assessment: Probable Aspiration PNA vs pneumonitis Pneumomediastinum-suspected to rupture R side bleb -CTA chest: Negative for acute pulmonary embolus or other acute thoracic vascular pathology. Pneumomediastinum. Suspect due to a ruptured right-sided medial bleb. Evidence of extensive chronic pulmonary parenchymal interstitial disease, with areas of honeycombing and bronchiectasis. No definite acute pulmonary parenchymal process. Ectatic main and left main pulmonary arteries, suggestive of pulmonary arterial hypertension. Bullae and subpleural blebs, may be related to the interstitial fibrotic process or could represent COPD changes -CXR: Cardiomegaly. Bilateral extensive interstitial and airspace opacities, slightly increased from but similar in distribution to prior study of 2017. Suspect component of chronic interstitial fibrosis with superimposed acute edema or infiltrates -influenza sc neg Afebrile No leukocytosis AST elevation; improving -HIV ab sc neg -Hep panel p DM HTN CT CAD CHF cervical radiculopathy CVA asthma COPD /Emphysema sp Bilateral hip replacement [facility] resident Plan: -Continue empiric IV Aztreonam #2 for PNA -01/17 SP Ceftriaxone x1 -f/u cx -monitor CBC/CMP, temperatures -f/u legionella ag urine, Hep panel, -aspiration precautions Thank you for this consultation. Will continue to follow along with you. Discussed with RN. Subjective Allergies: Coded Allergies: PENICILLINS (Verified Allergy, Unknown, SWELLING EVERYWHERE, EVEN EYES PER PATIENT, 11/24/11) Subjective afebrile at 2l NC no leukocytosis AST improving Objective Vital Signs Last 24 Hour Vital Signs Date Time Temp Pulse Resp B/P (MAP) Pulse Ox O2 Delivery O2 Flow Rate FiO2 01/19/19 08:00 2.0 01/19/19 08:00 Nasal Cannula 2.0 Nasal Cannula 2.0 01/19/19 07:00 98 20 Nasal Cannula 2.0 28 01/19/19 04:29 87 01/19/19 04:00 98.4 88 20 136/78 (97) 97 01/19/19 04:00 2.0 01/19/19 04:00 Nasal Cannula 2.0 Nasal Cannula 2.0 01/19/19 00:00 Nasal Cannula 2.0 Nasal Cannula 2.0 01/19/19 00:00 97.7 87 29 144/72 (96) 99 01/18/19 23:24 86 01/18/19 21:52 98 20 Nasal Cannula 2.0 28 01/18/19 20:00 98.7 99 20 134/83 (100) 100 01/18/19 20:00 2.0 01/18/19 20:00 Nasal Cannula 2.0 01/18/19 19:25 95 01/18/19 16:00 2.0 01/18/19 16:00 98.1 105 16 128/82 (97) 99 01/18/19 16:00 Nasal Cannula 2.0 01/18/19 15:47 102 01/18/19 12:00 2.0 01/18/19 12:00 98.1 111 28 146/73 (97) 100 01/18/19 12:00 Nasal Cannula 2.0 Nasal Cannula 2.0 01/18/19 11:34 109 Height (Feet): 5 Height (Inches): 6.00 Weight (Pounds): 120 Objective GENERAL: Calm in bed, O2 NC, slight short of breath. Oriented x2, no acute distress. CARDIOVASCULAR: No murmurs. LUNGS: Poor air exchange. ABDOMEN: Bowel sounds distant. EXTREMITIES: No cyanosis, clubbing, or edema. NEUROLOGIC: The patient moves all extremities, slightly weak. Microbiology Date/Time Source Procedure Growth Status 01/17/19 13:20 Blood Blood Culture - Preliminary NO GROWTH AFTER 24 HOURS Resulted 01/17/19 13:20 Blood Blood Culture - Preliminary NO GROWTH AFTER 24 HOURS Resulted 01/17/19 14:48 Nasal Nares MRSA Culture - Final NO METHICILLIN RESISTANT STAPH AUREUS... Complete 01/17/19 13:20 Nasal Nares Influenza Types A,B Antigen (GISELLE) - Final Complete 01/18/19 15:20 Urine,Clean Catch Urine Culture - Preliminary NO GROWTH Resulted 01/17/19 14:48 Urine,Clean Catch Urine Culture - Final Mixed Gram Positive Organism Complete 01/17/19 14:48 Rectum - Final NO CARBAPENEM-RESISTANT ENTEROBACTERI... Complete 01/17/19 14:48 Rectum VRE Culture - Final NO VANCOMYCIN RESISTANT ENTEROCOCCUS ... Complete Laboratory Tests Test 01/18/19 15:20 01/19/19 04:00 Urine Color Yellow Urine Appearance Cloudy Urine pH 6 (4.5-8.0) Urine Specific [place] 1.015 (1.005-1.035) Urine Protein 1+ (NEGATIVE) H Urine Glucose (UA) Negative (NEGATIVE) Urine Ketones 1+ (NEGATIVE) H Urine Blood 3+ (NEGATIVE) H Urine Nitrite Negative (NEGATIVE) Urine Bilirubin Negative (NEGATIVE) Urine Urobilinogen Normal MG/DL (0.0-1.0) Urine Leukocyte Esterase 2+ (NEGATIVE) H Urine RBC 10-15 /HPF (0 - 2) H Urine WBC 5-10 /HPF (0 - 2) H Urine Squamous Epithelial Cells Few /LPF (NONE/OCC) Urine Calcium Oxalate Crystals Few /LPF (NONE) Urine Bacteria Many /HPF (NONE) H Urine Osmolality 577 mOsm/kg (429-449) H Urine Random Sodium 112 mmol/L (20-110) H White Blood Count 4.8 K/UL (4.8-10.8) Red Blood Count 3.68 M/UL (4.20-5.40) L Hemoglobin 9.9 G/DL (12.0-16.0) L Hematocrit 31.3 % (37.0-47.0) L Mean Corpuscular Volume 85 FL (80-99) Mean Corpuscular Hemoglobin 26.9 PG (27.0-31.0) L Mean Corpuscular Hemoglobin Concent 31.6 G/DL (32.0-36.0) L Red Cell Distribution Width 17.3 % (11.6-14.8) H Platelet Count 357 K/UL (150-450) Mean Platelet Volume 5.7 FL (6.5-10.1) L Neutrophils (%) (Auto) 80.6 % (45.0-75.0) H Lymphocytes (%) (Auto) 13.4 % (20.0-45.0) L Monocytes (%) (Auto) 5.5 % (1.0-10.0) Eosinophils (%) (Auto) 0.0 % (0.0-3.0) Basophils (%) (Auto) 0.6 % (0.0-2.0) Differential Total Cells Counted 100 Neutrophils % (Manual) 74 % (45-75) Lymphocytes % (Manual) 19 % (20-45) L Monocytes % (Manual) 7 % (1-10) Eosinophils % (Manual) 0 % (0-3) Basophils % (Manual) 0 % (0-2) Band Neutrophils 0 % (0-8) Platelet Estimate Adequate Platelet Morphology Normal Erythrocyte Sedimentation Rate 100 MM/HR (0-30) H Reticulocyte Count Pending Prothrombin Time 10.9 SEC (9.30-11.50) Prothromb Time International Ratio 1.0 (0.9-1.1) Activated Partial Thromboplast Time 27 SEC (23-33) Sodium Level 136 MMOL/L (136-145) Potassium Level 4.4 MMOL/L (3.5-5.1) Chloride Level 103 MMOL/L (98-107) Carbon Dioxide Level 28 MMOL/L (21-32) Anion Gap 5 mmol/L (5-15) Blood Urea Nitrogen 32 mg/dL (7-18) H Creatinine 0.9 MG/DL (0.55-1.30) Estimat Glomerular Filtration Rate mL/min (>60) Glucose Level 130 MG/DL (74-106) H Calcium Level 9.9 MG/DL (8.5-10.1) Iron Level 56 ug/dL (50-175) Total Iron Binding Capacity 222 ug/dL (250-450) L Percent Iron Saturation 25 % (15-50) Unsaturated Iron Binding 166 ug/dL (112-346) Total Bilirubin 0.3 MG/DL (0.2-1.0) Aspartate Amino Transf (AST/SGOT) 99 U/L (15-37) H Alanine Aminotransferase (ALT/SGPT) 55 U/L (12-78) Alkaline Phosphatase 118 U/L (46-116) H Lactate Dehydrogenase 463 U/L (81-234) H Troponin I 0.319 ng/mL (0.000-0.056) Pro-B-Type Natriuretic Peptide 1523 pg/mL (0-125) H Total Protein 10.0 G/DL (6.4-8.2) H Albumin 2.9 G/DL (3.4-5.0) L Globulin 7.1 g/dL Albumin/Globulin Ratio 0.4 (1.0-2.7) L Carcinoembryonic Antigen Pending Vitamin B12 Level 719 PG/ML (193-986) Folate 9.8 NG/ML (8.6-58.9) Hepatitis A IgM Antibody Pending Hepatitis B Surface Antigen Pending Hepatitis B Core IgM Antibody Pending Hepatitis C Antibody Pending HIV (1&2) Antibody Rapid Negative (NEGATIVE) Current Medications Medications (Trade) Dose Ordered Sig/Charly Route PRN Reason Start Time Stop Time Status Last Admin Dose Admin Albuterol/ Ipratropium (Albuterol/ Ipratropium) 3 ml Q4H PRN HHN dyspnea 01/17/19 18:45 01/22/19 18:44 01/18/19 08:12 Aspirin (Ecotrin) 81 mg DAILY ORAL 01/19/19 09:00 02/18/19 08:59 01/19/19 08:39 Aztreonam 1 gm/ Sodium Chloride 50 ml @ 100 mls/hr Q8HR IVPB 01/18/19 12:00 01/25/19 11:59 01/19/19 05:32 Dextrose (Dextrose 50%) 25 ml Q30M PRN IV Hypoglycemia 01/17/19 18:45 02/16/19 18:44 Dextrose (Dextrose 50%) 50 ml Q30M PRN IV Hypoglycemia 01/17/19 18:45 02/16/19 18:44 Heparin Sodium (Porcine) (Heparin 5000 units/ml) 5,000 units EVERY 12 HOURS SUBQ 01/17/19 21:00 02/16/19 20:59 01/19/19 08:41 Lidocaine (Xylocaine 1% MPF 5ml) 10 ml Q4H PRN HHN cough 01/19/19 10:00 02/18/19 09:44 Lorazepam (Ativan 2mg/ml 1ml) 0.5 mg Q4H PRN IV For Anxiety 01/17/19 18:45 01/24/19 18:44 01/18/19 10:26 Methadone HCl (Methadone HCl) 2.5 mg EVERY 12 HOURS ORAL 01/19/19 21:00 01/26/19 20:59 Methylprednisolone Sodium Succinate (Solu-MEDROL) 60 mg EVERY 12 HOURS IV 01/19/19 21:00 02/17/19 00:00 Nitroglycerin (Ntg) 0.4 mg Q5M X 3 DOSES PRN SL Prn Chest Pain 01/17/19 18:45 02/16/19 18:44 Ondansetron HCl (Zofran) 4 mg Q6H PRN IVP Nausea & Vomiting 01/17/19 18:45 02/16/19 18:44 01/18/19 18:03 Promethazine HCl/ Codeine (Phenergan with Codeine) 5 ml Q6H PRN ORAL cough 01/17/19 18:45 02/16/19 18:44 Quetiapine Fumarate (SEROquel) 25 mg Q12HR ORAL 01/18/19 21:00 02/17/19 20:59 01/19/19 08:39 Temazepam (Restoril) 15 mg HSPRN PRN ORAL Insomnia 01/17/19 18:45 01/24/19 18:44 Theophylline (Jimmy-Dur) 100 mg EVERY 12 HOURS ORAL 01/17/19 21:00 02/16/19 20:59 01/19/19 08:39 Katt Ken M.D. Jan 19, 2019 10:12
[2019-01-19 12:00] VITALS: BP 135/84
--- NOTE | 2019-01-19 12:07 | NUR ---
NURSE NOTES: VSS. No distress noted. Patient asleep at this time. Daughter updated over the phone regarding patient care. Transfer to telemetry order obtained from MD. will continue to monitor patient.
--- NOTE | 2019-01-19 12:14 | Diagnostic Imaging Report ---
Indication: Shortness of breath Technique: One view of the chest Comparison: 01/18/2019 Findings: Increased reticular and airspace opacities are seen in the right upper lobe, left perihilar region, and left lung base. There is increasing atelectasis at the right lung base. The heart size is difficult to assess. The pleural spaces are grossly clear. Linear lucency across the central mediastinum may reflect the pneumomediastinum described on recent chest CT Impression: Increasing bilateral parenchymal opacities, likely reflecting increasing edema or infiltrate superimposed on pre-existing chronic opacities Central mediastinal lucency, likely reflects pneumomediastinum described on recent chest CT
--- NOTE | 2019-01-19 13:09 | General Progress Note ---
Assessment/Plan Problem List: (1) UTI (urinary tract infection) ICD Codes: N39.0 - Urinary tract infection, site not specified SNOMED: 70505564 (2) Anemia ICD Codes: D64.9 - Anemia, unspecified SNOMED: 007359744 (3) Arthritis ICD Codes: M19.90 - Unspecified osteoarthritis, unspecified site SNOMED: 9618394 (4) Hypertension ICD Codes: I10 - Essential (primary) hypertension SNOMED: 93891675 (5) COPD exacerbation ICD Codes: J44.1 - Chronic obstructive pulmonary disease with (acute) exacerbation SNOMED: 638869164, 133423237, 459976166 (6) CHF exacerbation ICD Codes: I50.9 - Heart failure, unspecified SNOMED: 60463215, 314278830, 164729499 (7) Cervical radiculopathy ICD Codes: M54.12 - Radiculopathy, cervical region SNOMED: 39181443 Status: unchanged Assessment/Plan o2 pulm tx abt pain control pt diet sx eval cbc bmp am Subjective Constitutional: Reports: weakness Respiratory: Reports: shortness of breath Allergies: Coded Allergies: PENICILLINS (Verified Allergy, Unknown, SWELLING EVERYWHERE, EVEN EYES PER PATIENT, 11/24/11) Subjective o2nc anxious Objective Last 24 Hour Vital Signs Date Time Temp Pulse Resp B/P (MAP) Pulse Ox O2 Delivery O2 Flow Rate FiO2 01/19/19 12:00 98.1 92 24 135/84 (101) 100 01/19/19 12:00 Nasal Cannula 2.0 Nasal Cannula 2.0 01/19/19 12:00 2.0 01/19/19 08:00 2.0 01/19/19 08:00 93 01/19/19 08:00 97.9 80 26 142/76 (98) 100 01/19/19 08:00 Nasal Cannula 2.0 Nasal Cannula 2.0 01/19/19 07:00 98 20 Nasal Cannula 2.0 28 01/19/19 04:29 87 01/19/19 04:00 98.4 88 20 136/78 (97) 97 01/19/19 04:00 2.0 01/19/19 04:00 Nasal Cannula 2.0 Nasal Cannula 2.0 01/19/19 00:00 Nasal Cannula 2.0 Nasal Cannula 2.0 01/19/19 00:00 97.7 87 29 144/72 (96) 99 01/18/19 23:24 86 01/18/19 21:52 98 20 Nasal Cannula 2.0 28 01/18/19 20:00 98.7 99 20 134/83 (100) 100 01/18/19 20:00 2.0 01/18/19 20:00 Nasal Cannula 2.0 01/18/19 19:25 95 01/18/19 16:00 2.0 01/18/19 16:00 98.1 105 16 128/82 (97) 99 01/18/19 16:00 Nasal Cannula 2.0 01/18/19 15:47 102 Intake and Output 01/18/19 01/19/19 19:00 07:00 Intake Total 290 ml 220 ml Output Total 400 ml Balance -110 ml 220 ml Intake Oral 240 ml 120 ml IV Total 50 ml 100 ml Output Urine Total 400 ml # Voids 3 # Bowel Movements 2 Laboratory Tests 01/18/19 15:20: Urine Color Yellow, Urine Appearance Cloudy, Urine pH 6, Urine Specific [place] 1.015, Urine Protein 1+H, Urine Glucose (UA) Negative, Urine Ketones 1+H, Urine Blood 3+H, Urine Nitrite Negative, Urine Bilirubin Negative, Urine Urobilinogen Normal, Urine Leukocyte Esterase 2+H, Urine RBC 10-15H, Urine WBC 5-10H, Urine Squamous Epithelial Cells Few, Urine Calcium Oxalate Crystals Few, Urine Bacteria ManyH, Urine Osmolality 577H, Urine Random Sodium 112H 01/19/19 04:00: White Blood Count 4.8, Red Blood Count 3.68L, Hemoglobin 9.9L, Hematocrit 31.3L , Mean Corpuscular Volume 85, Mean Corpuscular Hemoglobin 26.9L, Mean Corpuscular Hemoglobin Concent 31.6L, Red Cell Distribution Width 17.3H, Platelet Count 357, Mean Platelet Volume 5.7L, Neutrophils (%) (Auto) 80.6H, Lymphocytes (%) (Auto) 13.4L, Monocytes (%) (Auto) 5.5, Eosinophils (%) (Auto) 0.0, Basophils (%) (Auto) 0.6, Differential Total Cells Counted 100, Neutrophils % (Manual) 74, Lymphocytes % (Manual) 19L, Monocytes % (Manual) 7, Eosinophils % (Manual) 0, Basophils % (Manual) 0, Band Neutrophils 0, Platelet Estimate Adequate, Platelet Morphology Normal, Erythrocyte Sedimentation Rate 100H, Reticulocyte Count 1.9, Prothrombin Time 10.9, Prothromb Time International Ratio 1.0, Activated Partial Thromboplast Time 27, Sodium Level 136, Potassium Level 4.4, Chloride Level 103, Carbon Dioxide Level 28, Anion Gap 5, Blood Urea Nitrogen 32H, Creatinine 0.9, Estimat Glomerular Filtration Rate , Glucose Level 130H, Calcium Level 9.9, Iron Level 56, Total Iron Binding Capacity 222L, Percent Iron Saturation 25, Unsaturated Iron Binding 166, Total Bilirubin 0.3, Aspartate Amino Transf (AST/SGOT) 99H, Alanine Aminotransferase ( ALT/SGPT) 55, Alkaline Phosphatase 118H, Lactate Dehydrogenase 463H, Troponin I 0.319H, Pro-B-Type Natriuretic Peptide 1523H, Total Protein 10.0H, Albumin 2.9L , Globulin 7.1, Albumin/Globulin Ratio 0.4L, Carcinoembryonic Antigen [Pending] , Vitamin B12 Level 719, Folate 9.8, Hepatitis A IgM Antibody [Pending], Hepatitis B Surface Antigen [Pending], Hepatitis B Core IgM Antibody [Pending], Hepatitis C Antibody [Pending], HIV (1&2) Antibody Rapid Negative Height (Feet): 5 Height (Inches): 6.00 Weight (Pounds): 120 General Appearance: lethargic EENT: normal ENT inspection Neck: normal alignment Cardiovascular: normal peripheral pulses, normal rate, regular rhythm Respiratory/Chest: chest wall non-tender, decreased breath sounds Abdomen: normal bowel sounds, non tender, soft Extremities: normal inspection Edema: no edema noted Arm (L), no edema noted Arm (R), no edema noted Leg (L), no edema noted Leg (R), no edema noted Pedal (L), no edema noted Pedal (R), no edema noted Generalized Neurologic: motor weakness Skin: normal pigmentation, warm/dry Rio Lema DO Jan 19, 2019 13:09
--- NOTE | 2019-01-19 14:02 | NUR ---
*-* INSURANCE *-* ALL CLINICALS,REVIEWS AND INTERQUAL HAVE BEEN FAXED TO: [employer] PLEASE FAX THE REVIEW /CLINICAL NCM: COLETTE P- [phone] X Claudia F- [phone]....
--- NOTE | 2019-01-19 15:38 | Cardiac Electrophysiology PN ---
Assessment/Plan Assessment/Plan 1. Elevated troponin. Likely type 2 NSTEMI. No CP or SOB. EF normal but has severe pulmonary HTN ECG incomplete LBBB, LVH. On aspirin. Off Betablocker for Asthma COPD on steroids 2. CHF due to diastolic dysfunction 3. Hypertension. 4. Shortness breath.COPD exacerbation 5. Anemia. 6. UTI 8. Osteoarthritis. 9. Cervical radiculopathy. Subjective Subjective Comfortable in NAD. No CP or SOB Objective Last 24 Hour Vital Signs Date Time Temp Pulse Resp B/P (MAP) Pulse Ox O2 Delivery O2 Flow Rate FiO2 01/19/19 12:00 98.1 92 24 135/84 (101) 100 01/19/19 12:00 Nasal Cannula 2.0 Nasal Cannula 2.0 01/19/19 12:00 2.0 01/19/19 12:00 87 01/19/19 08:00 2.0 01/19/19 08:00 93 01/19/19 08:00 97.9 80 26 142/76 (98) 100 01/19/19 08:00 Nasal Cannula 2.0 Nasal Cannula 2.0 01/19/19 07:00 98 20 Nasal Cannula 2.0 28 01/19/19 04:29 87 01/19/19 04:00 98.4 88 20 136/78 (97) 97 01/19/19 04:00 2.0 01/19/19 04:00 Nasal Cannula 2.0 Nasal Cannula 2.0 01/19/19 00:00 Nasal Cannula 2.0 Nasal Cannula 2.0 01/19/19 00:00 97.7 87 29 144/72 (96) 99 01/18/19 23:24 86 01/18/19 21:52 98 20 Nasal Cannula 2.0 28 01/18/19 20:00 98.7 99 20 134/83 (100) 100 01/18/19 20:00 2.0 01/18/19 20:00 Nasal Cannula 2.0 01/18/19 19:25 95 01/18/19 16:00 2.0 01/18/19 16:00 98.1 105 16 128/82 (97) 99 01/18/19 16:00 Nasal Cannula 2.0 01/18/19 15:47 102 Intake and Output 01/18/19 01/19/19 18:59 06:59 Intake Total 290 ml 220 ml Output Total 400 ml Balance -110 ml 220 ml Intake Oral 240 ml 120 ml IV Total 50 ml 100 ml Output Urine Total 400 ml # Voids 3 # Bowel Movements 2 Laboratory Tests Test 01/19/19 04:00 White Blood Count 4.8 K/UL (4.8-10.8) Red Blood Count 3.68 M/UL (4.20-5.40) L Hemoglobin 9.9 G/DL (12.0-16.0) L Hematocrit 31.3 % (37.0-47.0) L Mean Corpuscular Volume 85 FL (80-99) Mean Corpuscular Hemoglobin 26.9 PG (27.0-31.0) L Mean Corpuscular Hemoglobin Concent 31.6 G/DL (32.0-36.0) L Red Cell Distribution Width 17.3 % (11.6-14.8) H Platelet Count 357 K/UL (150-450) Mean Platelet Volume 5.7 FL (6.5-10.1) L Neutrophils (%) (Auto) 80.6 % (45.0-75.0) H Lymphocytes (%) (Auto) 13.4 % (20.0-45.0) L Monocytes (%) (Auto) 5.5 % (1.0-10.0) Eosinophils (%) (Auto) 0.0 % (0.0-3.0) Basophils (%) (Auto) 0.6 % (0.0-2.0) Differential Total Cells Counted 100 Neutrophils % (Manual) 74 % (45-75) Lymphocytes % (Manual) 19 % (20-45) L Monocytes % (Manual) 7 % (1-10) Eosinophils % (Manual) 0 % (0-3) Basophils % (Manual) 0 % (0-2) Band Neutrophils 0 % (0-8) Platelet Estimate Adequate Platelet Morphology Normal Erythrocyte Sedimentation Rate 100 MM/HR (0-30) H Reticulocyte Count 1.9 % (0.0-2.0) Prothrombin Time 10.9 SEC (9.30-11.50) Prothromb Time International Ratio 1.0 (0.9-1.1) Activated Partial Thromboplast Time 27 SEC (23-33) Sodium Level 136 MMOL/L (136-145) Potassium Level 4.4 MMOL/L (3.5-5.1) Chloride Level 103 MMOL/L (98-107) Carbon Dioxide Level 28 MMOL/L (21-32) Anion Gap 5 mmol/L (5-15) Blood Urea Nitrogen 32 mg/dL (7-18) H Creatinine 0.9 MG/DL (0.55-1.30) Estimat Glomerular Filtration Rate mL/min (>60) Glucose Level 130 MG/DL (74-106) H Calcium Level 9.9 MG/DL (8.5-10.1) Iron Level 56 ug/dL (50-175) Total Iron Binding Capacity 222 ug/dL (250-450) L Percent Iron Saturation 25 % (15-50) Unsaturated Iron Binding 166 ug/dL (112-346) Total Bilirubin 0.3 MG/DL (0.2-1.0) Aspartate Amino Transf (AST/SGOT) 99 U/L (15-37) H Alanine Aminotransferase (ALT/SGPT) 55 U/L (12-78) Alkaline Phosphatase 118 U/L (46-116) H Lactate Dehydrogenase 463 U/L (81-234) H Troponin I 0.319 ng/mL (0.000-0.056) Pro-B-Type Natriuretic Peptide 1523 pg/mL (0-125) H Total Protein 10.0 G/DL (6.4-8.2) H Albumin 2.9 G/DL (3.4-5.0) L Globulin 7.1 g/dL Albumin/Globulin Ratio 0.4 (1.0-2.7) L Carcinoembryonic Antigen Pending Vitamin B12 Level 719 PG/ML (193-986) Folate 9.8 NG/ML (8.6-58.9) Hepatitis A IgM Antibody Pending Hepatitis B Surface Antigen Pending Hepatitis B Core IgM Antibody Pending Hepatitis C Antibody Pending HIV (1&2) Antibody Rapid Negative (NEGATIVE) Microbiology Date/Time Source Procedure Growth Status 01/17/19 13:20 Blood Blood Culture - Preliminary NO GROWTH AFTER 24 HOURS Resulted 01/17/19 13:20 Blood Blood Culture - Preliminary NO GROWTH AFTER 24 HOURS Resulted 01/17/19 14:48 Nasal Nares MRSA Culture - Final NO METHICILLIN RESISTANT STAPH AUREUS... Complete 01/17/19 13:20 Nasal Nares Influenza Types A,B Antigen (GISELLE) - Final Complete 01/18/19 15:20 Urine,Clean Catch Urine Culture - Preliminary NO GROWTH Resulted 01/17/19 14:48 Urine,Clean Catch Urine Culture - Final Mixed Gram Positive Organism Complete 01/17/19 14:48 Rectum - Final NO CARBAPENEM-RESISTANT ENTEROBACTERI... Complete 01/17/19 14:48 Rectum VRE Culture - Final NO VANCOMYCIN RESISTANT ENTEROCOCCUS ... 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
[2019-01-19 16:00] VITALS: BP 144/86
--- NOTE | 2019-01-19 17:25 | NUR ---
TRANSFER TO FLOOR: Patient transferred to TELE, per Hospital bed. Report given to HUSSEIN Smith . Belongings and medications given to RN. Family and or S/O informed of transfer.
--- NOTE | 2019-01-19 17:30 | NUR ---
NURSE NOTES: Received report from HUSSEIN Cormier. Patient transferred from SDU to tele. Patient on 2L oxygen via NC, no active s/s cardiac, respiratory distress noticed at this time, SR with BBB, vital sign at the time of arrival BP 139/84, O2 sat 94%, T 98.1, HR 94, denies pain at this time. Belonging checked with RN and remained with patient. Patient AOx4, endorsed need of OB stool collection and sputum collection. IV on left AC 20G asymptomatic, patent, intact. Bed in lowest position, side rails upx2, call light within reach. Will continue to monitor.
[2019-01-19] MEDS ORDERED: Nitroglycerin Subl 0.4mg tab SL PRN (17:34)
[2019-01-19] MEDS ORDERED: Promethazine/Codeine 5ml UD ORAL PRN (17:34)
[2019-01-19] MEDS ORDERED: LORazepam Inj 2mg/ml 1ml IV PRN (17:34)
[2019-01-19] MEDS ORDERED: Albuterol/Ipratropium 3ml neb HHN PRN (17:34)
--- NOTE | 2019-01-19 19:43 | NUR ---
HAND-OFF: Report given to HUSSEIN Alarcon.
--- NOTE | 2019-01-19 19:45 | NUR ---
NURSE NOTES: Received report from Lobo Gracia RN. Pt is resting in the bed w/o any distress in 2L NC. Pt is able make needs known. IV site is asymptomatic. SR in the monitor. Call light and side table are w/in reach. Bed is in the lowest position, side rails up x2, and breaks are engaged. Will follow plans of care.
[2019-01-19 20:00] VITALS: BP 117/68
[2019-01-19] MEDS ORDERED: Solu-MEDROL 125mg Inj IV SCH (21:00)
--- NOTE | 2019-01-20 00:15 | NUR ---
NURSE NOTES: Pt is sleeping w/o distress in 2L NC, humidifier is applied with NC. Pt refused midnight VS check up. SR w/ BBB in the monitor.
[2019-01-20 04:00] VITALS: BP 123/73
[2019-01-20] MEDS: Aztreonam Inj 1 GM in NS 50 ML IVPB SCH ×3 (06:01→22:06)
--- NOTE | 2019-01-20 07:09 | NUR ---
CASE MANAGEMENT:REVIEW 01/20/19 SI: ACUTE RESPIRATORY FAILURE. COPD EXACERBATION. NSTEMI 98.0 78 20 123/73 100% ON 2L/NC LABS CURRENTLY PENDING IS: IV AZACTAM Q8HRS IV SOLUMEDROL Q12 ASA PO QD HEPARIN SQ Q12 METHADONE PO Q12 ULICES-DUR PO Q12 : TRANSFER FROM SDU TO TELEMETRY DCP: PATIENT IS FROM [facility]
--- NOTE | 2019-01-20 07:24 | NUR ---
HAND-OFF: Report given to Lobo Gracia RN.
--- NOTE | 2019-01-20 07:25 | NUR ---
NURSE NOTES: Received report from HUSSEIN Alarcon. Patient in bed resting, no active s/s cardiac, respiratory distress noticed at this time, denies pain at this time. Patient on 2L oxygen via NC, AOx4, SR with BBB, HR 78. IV site on left AC 20G asymptomatic, patent, intact. Endorsed sputum culture collected, need of OB stool collection. Bed in lowest position, side rails up x3, call light within reach. Will continue to monitor.
[2019-01-20 07:48] LABS: HEMOGLOBIN 9.6 G/DL (12.0-16.0); MEAN CORPUSCULAR VOLUME 86 FL (80-99); PLATELET COUNT 284 K/UL (150-450); RED CELL DISTRIBUTION WIDTH 17.4 % (11.6-14.8); WHITE BLOOD COUNT 7.5 K/UL (4.8-10.8)
[2019-01-20 08:00] VITALS: BP 118/74
[2019-01-20] MEDS: Solu-MEDROL 125mg Inj IV SCH ×2 (08:07→22:01)
[2019-01-20] MEDS: Theophylline ER 100mg ORAL SCH ×2 (08:08→22:01)
[2019-01-20] MEDS: Heparin 5000 units/ml inj SUBQ SCH ×2 (08:09→22:04)
[2019-01-20 08:14] LABS: ALANINE AMINOTRANSFERASE 64 U/L (12-78); ALBUMIN 2.8 G/DL (3.4-5.0); ALBUMIN/GLOBULIN RATIO 0.5 (1.0-2.7); ALKALINE PHOSPHATASE 107 U/L (46-116); ANION GAP 7 mmol/L (5-15); ASPARTATE AMINO TRANSFERASE 88 U/L (15-37); BILIRUBIN,TOTAL 0.2 MG/DL (0.2-1.0); BLOOD UREA NITROGEN 36 mg/dL (7-18); CALCIUM 9.3 MG/DL (8.5-10.1); CARBON DIOXIDE 29 MMOL/L (21-32); CHLORIDE 106 MMOL/L (98-107); CREATININE 0.8 MG/DL (0.55-1.30); PHOSPHORUS 3.4 MG/DL (2.5-4.9); POTASSIUM 4.7 MMOL/L (3.5-5.1); SODIUM 142 MMOL/L (136-145)
[2019-01-20] MEDS: Aspirin EC 81mg tab ORAL SCH (08:21)
[2019-01-20 12:00] VITALS: BP_SYST 128; BP_SYST 134; BP_DIAS 77; BP_DIAS 79
--- NOTE | 2019-01-20 12:12 | Pulmonology Progress Note ---
Assessment/Plan Problems: (1) Acute respiratory failure (2) COPD exacerbation (3) Pulmonary hypertension (4) Pulmonary fibrosis (5) Elevated troponin (6) Protein-calorie malnutrition, severe (7) Hypertension Assessment/Plan cxr reviewed: slightly worse infiltrate, but pt is clinically better taper steroids continue abx until sputum is available CT chest reviewed, pt has extensive fibrosis and chronic changes Echo reviewed, Grade one diastolic dysfunction trial of lidocaine inhalers and chronic Methadone to suppress dyspnea. f/u cardiology recommendations Poor overall prognosis. Subjective ROS Limited/Unobtainable: No HEENT: Repors: no symptoms Respiratory: Reports: no symptoms Allergies: Coded Allergies: PENICILLINS (Verified Allergy, Unknown, SWELLING EVERYWHERE, EVEN EYES PER PATIENT, 11/24/11) Objective Last 24 Hour Vital Signs Date Time Temp Pulse Resp B/P (MAP) Pulse Ox O2 Delivery O2 Flow Rate FiO2 01/20/19 08:54 83 20 Nasal Cannula 2.0 28 01/20/19 08:00 89 01/20/19 08:00 97.9 77 18 118/74 (89) 100 01/20/19 04:00 76 01/20/19 04:00 98.0 78 20 123/73 (90) 100 01/20/19 00:06 78 01/19/19 21:00 Nasal Cannula 2.0 Nasal Cannula 2.0 01/19/19 20:44 90 20 Nasal Cannula 2.0 28 01/19/19 20:00 98.7 87 20 117/68 (84) 99 01/19/19 19:00 97 01/19/19 16:00 88 01/19/19 16:00 98.5 90 26 144/86 (105) 100 01/19/19 16:00 Nasal Cannula 2.0 Nasal Cannula 2.0 01/19/19 16:00 2.0 Intake and Output 01/19/19 01/20/19 19:00 07:00 Intake Total 50 ml Output Total 400 ml Balance 50 ml -400 ml Intake Oral 50 ml Output Urine Total 400 ml # Voids 1 General Appearance: WD/WN HEENT: normocephalic, atraumatic Respiratory/Chest: chest wall non-tender, lungs clear Breasts: no masses Cardiovascular: normal peripheral pulses, normal rate Abdomen: normal bowel sounds, soft, non tender Genitourinary: normal external genitalia Extremities: no cyanosis Skin: no rash Microbiology Date/Time Source Procedure Growth Status 01/17/19 13:20 Blood Blood Culture - Preliminary NO GROWTH AFTER 48 HOURS Resulted 01/17/19 13:20 Blood Blood Culture - Preliminary NO GROWTH AFTER 48 HOURS Resulted 01/19/19 11:30 Sputum Gram Stain - Final Resulted 01/19/19 11:30 Sputum Sputum Culture Pending Resulted 01/17/19 14:48 Nasal Nares MRSA Culture - Final NO METHICILLIN RESISTANT STAPH AUREUS... Complete 01/17/19 13:20 Nasal Nares Influenza Types A,B Antigen (GISELLE) - Final Complete 01/18/19 15:20 Urine,Clean Catch Urine Culture - Preliminary Mixed Gram Positive Organism Resulted 01/17/19 14:48 Urine,Clean Catch Urine Culture - Final Mixed Gram Positive Organism Complete 01/17/19 14:48 Rectum - Final NO CARBAPENEM-RESISTANT ENTEROBACTERI... Complete 01/17/19 14:48 Rectum VRE Culture - Final NO VANCOMYCIN RESISTANT ENTEROCOCCUS ... Complete Laboratory Tests 01/20/19 06:24: White Blood Count 7.5#, Red Blood Count 3.60L, Hemoglobin 9.6L, Hematocrit 31.0L , Mean Corpuscular Volume 86, Mean Corpuscular Hemoglobin 26.7L, Mean Corpuscular Hemoglobin Concent 31.0L, Red Cell Distribution Width 17.4H, Platelet Count 284, Mean Platelet Volume 5.6L, Neutrophils (%) (Auto) , Lymphocytes (%) (Auto) , Monocytes (%) (Auto) , Eosinophils (%) (Auto) , Basophils (%) (Auto) , Differential Total Cells Counted 100, Neutrophils % ( Manual) 93H, Lymphocytes % (Manual) 6L, Monocytes % (Manual) 1, Eosinophils % ( Manual) 0, Basophils % (Manual) 0, Band Neutrophils 0, Platelet Estimate Adequate, Platelet Morphology Normal, Hypochromasia 1+, Anisocytosis 1+, Sodium Level 142, Potassium Level 4.7, Chloride Level 106, Carbon Dioxide Level 29, Anion Gap 7, Blood Urea Nitrogen 36H, Creatinine 0.8, Estimat Glomerular Filtration Rate , Glucose Level 116H, Calcium Level 9.3, Phosphorus Level 3.4, Magnesium Level 2.6H, Total Bilirubin 0.2, Aspartate Amino Transf (AST/SGOT) 88H , Alanine Aminotransferase (ALT/SGPT) 64, Alkaline Phosphatase 107, Troponin I 0.312H, Total Protein 8.9H, Albumin 2.8L, Globulin 6.1, Albumin/Globulin Ratio 0.5L Current Medications Medications (Trade) Dose Ordered Sig/Charly Route PRN Reason Start Time Stop Time Status Last Admin Dose Admin Albuterol/ Ipratropium (Albuterol/ Ipratropium) 3 ml Q4H PRN HHN dyspnea 01/19/19 17:34 01/22/19 17:33 Aspirin (Ecotrin) 81 mg DAILY ORAL 01/20/19 09:00 02/18/19 08:59 01/20/19 08:21 Aztreonam 1 gm/ Sodium Chloride 50 ml @ 100 mls/hr Q8HR IVPB 01/19/19 22:00 01/25/19 11:59 01/20/19 06:01 Dextrose (Dextrose 50%) 25 ml Q30M PRN IV Hypoglycemia 01/19/19 17:33 02/16/19 17:32 Dextrose (Dextrose 50%) 50 ml Q30M PRN IV Hypoglycemia 01/19/19 17:33 02/16/19 17:32 Heparin Sodium (Porcine) (Heparin 5000 units/ml) 5,000 units EVERY 12 HOURS SUBQ 01/19/19 21:00 02/16/19 20:59 01/20/19 08:09 Lidocaine (Xylocaine 1% MPF 5ml) 10 ml Q4H PRN HHN cough 01/19/19 17:36 02/18/19 17:35 Lorazepam (Ativan 2mg/ml 1ml) 0.5 mg Q4H PRN IV For Anxiety 01/19/19 17:34 01/24/19 17:33 Methadone HCl (Methadone HCl) 2.5 mg EVERY 12 HOURS ORAL 01/19/19 21:00 01/26/19 20:59 01/20/19 08:08 Methylprednisolone Sodium Succinate (Solu-MEDROL) 60 mg EVERY 12 HOURS IV 01/19/19 21:00 02/17/19 00:00 01/20/19 08:07 Nitroglycerin (Ntg) 0.4 mg Q5M X 3 DOSES PRN SL Prn Chest Pain 01/19/19 17:34 02/16/19 17:33 Ondansetron HCl (Zofran) 4 mg Q6H PRN IVP Nausea & Vomiting 3/14/19 17:34 02/16/19 17:33 Promethazine HCl/ Codeine (Phenergan with Codeine) 5 ml Q6H PRN ORAL cough 01/19/19 17:34 02/16/19 17:33 Quetiapine Fumarate (SEROquel) 25 mg Q12HR ORAL 01/19/19 21:00 02/17/19 20:59 01/20/19 08:08 Temazepam (Restoril) 15 mg HSPRN PRN ORAL Insomnia 01/19/19 21:00 01/24/19 20:59 Theophylline (Jimmy-Dur) 100 mg EVERY 12 HOURS ORAL 01/19/19 21:00 02/16/19 20:59 01/20/19 08:08 Jersey Chadwick MD Jan 20, 2019 12:12
--- NOTE | 2019-01-20 13:00 | NUR ---
NURSE NOTES: Dr. Burgess at the nursing station, made aware patient troponin level today 0.312 but trending down from 0.[address] Burgess patient does not c/o chest pain, no order given at this time. Will continue to monitor.
--- NOTE | 2019-01-20 13:28 | General Progress Note ---
Assessment/Plan Problem List: (1) UTI (urinary tract infection) ICD Codes: N39.0 - Urinary tract infection, site not specified SNOMED: 01231643 (2) Anemia ICD Codes: D64.9 - Anemia, unspecified SNOMED: 335268403 (3) Arthritis ICD Codes: M19.90 - Unspecified osteoarthritis, unspecified site SNOMED: 2742369 (4) Hypertension ICD Codes: I10 - Essential (primary) hypertension SNOMED: 35039837 (5) COPD exacerbation ICD Codes: J44.1 - Chronic obstructive pulmonary disease with (acute) exacerbation SNOMED: 501658713, 730982628, 096079759 (6) CHF exacerbation ICD Codes: I50.9 - Heart failure, unspecified SNOMED: 65187774, 010152292, 796443057 (7) Cervical radiculopathy ICD Codes: M54.12 - Radiculopathy, cervical region SNOMED: 97906692 Status: unchanged Assessment/Plan o2 pulm tx abt pain control pt diet sx eval cbc bmp am Subjective Constitutional: Reports: weakness Allergies: Coded Allergies: PENICILLINS (Verified Allergy, Unknown, SWELLING EVERYWHERE, EVEN EYES PER PATIENT, 11/24/11) All Systems: reviewed and negative except above Subjective o2nc anxious Objective Last 24 Hour Vital Signs Date Time Temp Pulse Resp B/P (MAP) Pulse Ox O2 Delivery O2 Flow Rate FiO2 01/20/19 08:54 83 20 Nasal Cannula 2.0 28 01/20/19 08:00 89 01/20/19 08:00 97.9 77 18 118/74 (89) 100 01/20/19 04:00 76 01/20/19 04:00 98.0 78 20 123/73 (90) 100 01/20/19 00:06 78 01/19/19 21:00 Nasal Cannula 2.0 Nasal Cannula 2.0 01/19/19 20:44 90 20 Nasal Cannula 2.0 28 01/19/19 20:00 98.7 87 20 117/68 (84) 99 01/19/19 19:00 97 01/19/19 16:00 88 01/19/19 16:00 98.5 90 26 144/86 (105) 100 01/19/19 16:00 Nasal Cannula 2.0 Nasal Cannula 2.0 01/19/19 16:00 2.0 Intake and Output 01/19/19 01/20/19 19:00 07:00 Intake Total 50 ml Output Total 400 ml Balance 50 ml -400 ml Intake Oral 50 ml Output Urine Total 400 ml # Voids 1 Laboratory Tests 01/20/19 06:24: White Blood Count 7.5#, Red Blood Count 3.60L, Hemoglobin 9.6L, Hematocrit 31.0L , Mean Corpuscular Volume 86, Mean Corpuscular Hemoglobin 26.7L, Mean Corpuscular Hemoglobin Concent 31.0L, Red Cell Distribution Width 17.4H, Platelet Count 284, Mean Platelet Volume 5.6L, Neutrophils (%) (Auto) , Lymphocytes (%) (Auto) , Monocytes (%) (Auto) , Eosinophils (%) (Auto) , Basophils (%) (Auto) , Differential Total Cells Counted 100, Neutrophils % ( Manual) 93H, Lymphocytes % (Manual) 6L, Monocytes % (Manual) 1, Eosinophils % ( Manual) 0, Basophils % (Manual) 0, Band Neutrophils 0, Platelet Estimate Adequate, Platelet Morphology Normal, Hypochromasia 1+, Anisocytosis 1+, Sodium Level 142, Potassium Level 4.7, Chloride Level 106, Carbon Dioxide Level 29, Anion Gap 7, Blood Urea Nitrogen 36H, Creatinine 0.8, Estimat Glomerular Filtration Rate , Glucose Level 116H, Calcium Level 9.3, Phosphorus Level 3.4, Magnesium Level 2.6H, Total Bilirubin 0.2, Aspartate Amino Transf (AST/SGOT) 88H , Alanine Aminotransferase (ALT/SGPT) 64, Alkaline Phosphatase 107, Troponin I 0.312H, Total Protein 8.9H, Albumin 2.8L, Globulin 6.1, Albumin/Globulin Ratio 0.5L Height (Feet): 5 Height (Inches): 6.00 Weight (Pounds): 120 General Appearance: lethargic EENT: normal ENT inspection Neck: normal alignment Cardiovascular: normal peripheral pulses, normal rate, regular rhythm Respiratory/Chest: chest wall non-tender, decreased breath sounds Abdomen: normal bowel sounds, non tender, soft Extremities: normal inspection Edema: no edema noted Arm (L), no edema noted Arm (R), no edema noted Leg (L), no edema noted Leg (R), no edema noted Pedal (L), no edema noted Pedal (R), no edema noted Generalized Neurologic: responsive, motor weakness Skin: normal pigmentation, warm/dry Rio Lema DO Jan 20, 2019 13:28
--- NOTE | 2019-01-20 13:33 | Cardiac Electrophysiology PN ---
Assessment/Plan Assessment/Plan 1. Elevated troponin. Likely type 2 NSTEMI. No CP or SOB. EF normal but has severe pulmonary HTN ECG incomplete LBBB, LVH. On aspirin. Off Betablocker for Asthma COPD on steroids 2. CHF due to diastolic dysfunction 3. Hypertension. 4. COPD exacerbation 5. Anemia. 6. UTI 8. Osteoarthritis. 9. Cervical radiculopathy. DW RN Subjective Subjective Comfortable in NAD. No events Objective Last 24 Hour Vital Signs Date Time Temp Pulse Resp B/P (MAP) Pulse Ox O2 Delivery O2 Flow Rate FiO2 01/20/19 08:54 83 20 Nasal Cannula 2.0 28 01/20/19 08:00 89 01/20/19 08:00 97.9 77 18 118/74 (89) 100 01/20/19 04:00 76 01/20/19 04:00 98.0 78 20 123/73 (90) 100 01/20/19 00:06 78 01/19/19 21:00 Nasal Cannula 2.0 Nasal Cannula 2.0 01/19/19 20:44 90 20 Nasal Cannula 2.0 28 01/19/19 20:00 98.7 87 20 117/68 (84) 99 01/19/19 19:00 97 01/19/19 16:00 88 01/19/19 16:00 98.5 90 26 144/86 (105) 100 01/19/19 16:00 Nasal Cannula 2.0 Nasal Cannula 2.0 01/19/19 16:00 2.0 Intake and Output 01/19/19 01/20/19 19:00 07:00 Intake Total 50 ml Output Total 400 ml Balance 50 ml -400 ml Intake Oral 50 ml Output Urine Total 400 ml # Voids 1 Laboratory Tests Test 01/20/19 06:24 White Blood Count 7.5 K/UL (4.8-10.8) # Red Blood Count 3.60 M/UL (4.20-5.40) L Hemoglobin 9.6 G/DL (12.0-16.0) L Hematocrit 31.0 % (37.0-47.0) L Mean Corpuscular Volume 86 FL (80-99) Mean Corpuscular Hemoglobin 26.7 PG (27.0-31.0) L Mean Corpuscular Hemoglobin Concent 31.0 G/DL (32.0-36.0) L Red Cell Distribution Width 17.4 % (11.6-14.8) H Platelet Count 284 K/UL (150-450) Mean Platelet Volume 5.6 FL (6.5-10.1) L Neutrophils (%) (Auto) % (45.0-75.0) Lymphocytes (%) (Auto) % (20.0-45.0) Monocytes (%) (Auto) % (1.0-10.0) Eosinophils (%) (Auto) % (0.0-3.0) Basophils (%) (Auto) % (0.0-2.0) Differential Total Cells Counted 100 Neutrophils % (Manual) 93 % (45-75) H Lymphocytes % (Manual) 6 % (20-45) L Monocytes % (Manual) 1 % (1-10) Eosinophils % (Manual) 0 % (0-3) Basophils % (Manual) 0 % (0-2) Band Neutrophils 0 % (0-8) Platelet Estimate Adequate Platelet Morphology Normal Hypochromasia 1+ Anisocytosis 1+ Sodium Level 142 MMOL/L (136-145) Potassium Level 4.7 MMOL/L (3.5-5.1) Chloride Level 106 MMOL/L (98-107) Carbon Dioxide Level 29 MMOL/L (21-32) Anion Gap 7 mmol/L (5-15) Blood Urea Nitrogen 36 mg/dL (7-18) H Creatinine 0.8 MG/DL (0.55-1.30) Estimat Glomerular Filtration Rate mL/min (>60) Glucose Level 116 MG/DL (74-106) H Calcium Level 9.3 MG/DL (8.5-10.1) Phosphorus Level 3.4 MG/DL (2.5-4.9) Magnesium Level 2.6 MG/DL (1.8-2.4) H Total Bilirubin 0.2 MG/DL (0.2-1.0) Aspartate Amino Transf (AST/SGOT) 88 U/L (15-37) H Alanine Aminotransferase (ALT/SGPT) 64 U/L (12-78) Alkaline Phosphatase 107 U/L (46-116) Troponin I 0.312 ng/mL (0.000-0.056) Total Protein 8.9 G/DL (6.4-8.2) H Albumin 2.8 G/DL (3.4-5.0) L Globulin 6.1 g/dL Albumin/Globulin Ratio 0.5 (1.0-2.7) L Microbiology Date/Time Source Procedure Growth Status 01/19/19 11:30 Sputum Gram Stain - Final Resulted 01/19/19 11:30 Sputum Sputum Culture Pending Resulted 01/17/19 14:48 Nasal Nares MRSA Culture - Final NO METHICILLIN RESISTANT STAPH AUREUS... Complete 01/18/19 15:20 Urine,Clean Catch Urine Culture - Preliminary Mixed Gram Positive Organism Resulted 01/17/19 14:48 Urine,Clean Catch Urine Culture - Final Mixed Gram Positive Organism Complete 01/17/19 14:48 Rectum - Final NO CARBAPENEM-RESISTANT ENTEROBACTERI... Complete 01/17/19 14:48 Rectum VRE Culture - Final NO VANCOMYCIN RESISTANT ENTEROCOCCUS ... Complete Objective HEENT: No JVD Neck: non-tender, normal alignment, supple Respiratory/Chest: chest wall non-tender, crackles/rales, rhonchi - bilaterally Cardiovascular/Chest: normal peripheral pulses, normal rate, regular rhythm Abdomen: normal bowel sounds, non tender, soft, no organomegaly Extremities: normal range of motion, non-tender, normal inspection, no calf tenderness Skin Exam: normal pigmentation, warm/dry Renzo Burgess MD Jan 20, 2019 13:33
--- NOTE | 2019-01-20 13:38 | Infectious Diseases Prog Note ---
Assessment/Plan Assessment/Plan Abx: Ceftriaxone x1 01/17 Aztreonam 01/18- Assessment: Probable Aspiration PNA vs pneumonitis Pneumomediastinum-suspected to rupture R side paratracheal bleb -01/20 CXR: Increasing bilateral parenchymal opacities, likely reflecting increasing edema or infiltrate superimposed on pre-existing chronic opacities. Central mediastinal lucency, likely reflects pneumomediastinum described on recent chest CT -CTA chest: Negative for acute pulmonary embolus or other acute thoracic vascular pathology. Pneumomediastinum. Suspect due to a ruptured right-sided medial bleb. Evidence of extensive chronic pulmonary parenchymal interstitial disease, with areas of honeycombing and bronchiectasis. No definite acute pulmonary parenchymal process. Ectatic main and left main pulmonary arteries, suggestive of pulmonary arterial hypertension. Bullae and subpleural blebs, may be related to the interstitial fibrotic process or could represent COPD changes -CXR: Cardiomegaly. Bilateral extensive interstitial and airspace opacities, slightly increased from but similar in distribution to prior study of 2017. Suspect component of chronic interstitial fibrosis with superimposed acute edema or infiltrates -influenza sc neg Afebrile No leukocytosis AST elevation; improving -HIV ab sc neg -Hep C+ DM HTN [place] CAD CHF cervical radiculopathy CVA asthma COPD /Emphysema sp Bilateral hip replacement longterm resident Plan: -Continue empiric IV Aztreonam #3 and add Azithromycin atypical coverage -01/17 SP Ceftriaxone x1 -f/u cx -monitor CBC/CMP, temperatures -f/u legionella ag urine, Hep panel, -aspiration precautions -Hep C VL am Thank you for this consultation. Will continue to follow along with you. Discussed with RN. Subjective Allergies: Coded Allergies: PENICILLINS (Verified Allergy, Unknown, SWELLING EVERYWHERE, EVEN EYES PER PATIENT, 11/24/11) Subjective afebrile at 2l NC no leukocytosis AST improving Objective Vital Signs Last 24 Hour Vital Signs Date Time Temp Pulse Resp B/P (MAP) Pulse Ox O2 Delivery O2 Flow Rate FiO2 01/20/19 08:54 83 20 Nasal Cannula 2.0 28 01/20/19 08:00 89 01/20/19 08:00 97.9 77 18 118/74 (89) 100 01/20/19 04:00 76 01/20/19 04:00 98.0 78 20 123/73 (90) 100 01/20/19 00:06 78 01/19/19 21:00 Nasal Cannula 2.0 Nasal Cannula 2.0 01/19/19 20:44 90 20 Nasal Cannula 2.0 28 01/19/19 20:00 98.7 87 20 117/68 (84) 99 01/19/19 19:00 97 01/19/19 16:00 88 01/19/19 16:00 98.5 90 26 144/86 (105) 100 01/19/19 16:00 Nasal Cannula 2.0 Nasal Cannula 2.0 01/19/19 16:00 2.0 Height (Feet): 5 Height (Inches): 6.00 Weight (Pounds): 120 Objective GENERAL: Calm in bed, O2 NC, slight short of breath. Oriented x2, no acute distress. CARDIOVASCULAR: No murmurs. LUNGS: Poor air exchange. ABDOMEN: Bowel sounds distant. EXTREMITIES: No cyanosis, clubbing, or edema. NEUROLOGIC: The patient moves all extremities, slightly weak. Microbiology Date/Time Source Procedure Growth Status 01/19/19 11:30 Sputum Gram Stain - Final Resulted 01/19/19 11:30 Sputum Sputum Culture Pending Resulted 01/17/19 14:48 Nasal Nares MRSA Culture - Final NO METHICILLIN RESISTANT STAPH AUREUS... Complete 01/18/19 15:20 Urine,Clean Catch Urine Culture - Preliminary Mixed Gram Positive Organism Resulted 01/17/19 14:48 Urine,Clean Catch Urine Culture - Final Mixed Gram Positive Organism Complete 01/17/19 14:48 Rectum - Final NO CARBAPENEM-RESISTANT ENTEROBACTERI... Complete 01/17/19 14:48 Rectum VRE Culture - Final NO VANCOMYCIN RESISTANT ENTEROCOCCUS ... Complete Laboratory Tests Test 01/20/19 06:24 White Blood Count 7.5 K/UL (4.8-10.8) # Red Blood Count 3.60 M/UL (4.20-5.40) L Hemoglobin 9.6 G/DL (12.0-16.0) L Hematocrit 31.0 % (37.0-47.0) L Mean Corpuscular Volume 86 FL (80-99) Mean Corpuscular Hemoglobin 26.7 PG (27.0-31.0) L Mean Corpuscular Hemoglobin Concent 31.0 G/DL (32.0-36.0) L Red Cell Distribution Width 17.4 % (11.6-14.8) H Platelet Count 284 K/UL (150-450) Mean Platelet Volume 5.6 FL (6.5-10.1) L Neutrophils (%) (Auto) % (45.0-75.0) Lymphocytes (%) (Auto) % (20.0-45.0) Monocytes (%) (Auto) % (1.0-10.0) Eosinophils (%) (Auto) % (0.0-3.0) Basophils (%) (Auto) % (0.0-2.0) Differential Total Cells Counted 100 Neutrophils % (Manual) 93 % (45-75) H Lymphocytes % (Manual) 6 % (20-45) L Monocytes % (Manual) 1 % (1-10) Eosinophils % (Manual) 0 % (0-3) Basophils % (Manual) 0 % (0-2) Band Neutrophils 0 % (0-8) Platelet Estimate Adequate Platelet Morphology Normal Hypochromasia 1+ Anisocytosis 1+ Sodium Level 142 MMOL/L (136-145) Potassium Level 4.7 MMOL/L (3.5-5.1) Chloride Level 106 MMOL/L (98-107) Carbon Dioxide Level 29 MMOL/L (21-32) Anion Gap 7 mmol/L (5-15) Blood Urea Nitrogen 36 mg/dL (7-18) H Creatinine 0.8 MG/DL (0.55-1.30) Estimat Glomerular Filtration Rate mL/min (>60) Glucose Level 116 MG/DL (74-106) H Calcium Level 9.3 MG/DL (8.5-10.1) Phosphorus Level 3.4 MG/DL (2.5-4.9) Magnesium Level 2.6 MG/DL (1.8-2.4) H Total Bilirubin 0.2 MG/DL (0.2-1.0) Aspartate Amino Transf (AST/SGOT) 88 U/L (15-37) H Alanine Aminotransferase (ALT/SGPT) 64 U/L (12-78) Alkaline Phosphatase 107 U/L (46-116) Troponin I 0.312 ng/mL (0.000-0.056) Total Protein 8.9 G/DL (6.4-8.2) H Albumin 2.8 G/DL (3.4-5.0) L Globulin 6.1 g/dL Albumin/Globulin Ratio 0.5 (1.0-2.7) L Current Medications Medications (Trade) Dose Ordered Sig/Charly Route PRN Reason Start Time Stop Time Status Last Admin Dose Admin Albuterol/ Ipratropium (Albuterol/ Ipratropium) 3 ml Q4H PRN HHN dyspnea 01/19/19 17:34 01/22/19 17:33 Aspirin (Ecotrin) 81 mg DAILY ORAL 01/20/19 09:00 02/18/19 08:59 01/20/19 08:21 Aztreonam 1 gm/ Sodium Chloride 50 ml @ 100 mls/hr Q8HR IVPB 01/19/19 22:00 01/25/19 11:59 01/20/19 06:01 Dextrose (Dextrose 50%) 25 ml Q30M PRN IV Hypoglycemia 01/19/19 17:33 02/16/19 17:32 Dextrose (Dextrose 50%) 50 ml Q30M PRN IV Hypoglycemia 01/19/19 17:33 02/16/19 17:32 Heparin Sodium (Porcine) (Heparin 5000 units/ml) 5,000 units EVERY 12 HOURS SUBQ 01/19/19 21:00 02/16/19 20:59 01/20/19 08:09 Lidocaine (Xylocaine 1% MPF 5ml) 10 ml Q4H PRN HHN cough 01/19/19 17:36 02/18/19 17:35 Lorazepam (Ativan 2mg/ml 1ml) 0.5 mg Q4H PRN IV For Anxiety 01/19/19 17:34 01/24/19 17:33 Methadone HCl (Methadone HCl) 2.5 mg EVERY 12 HOURS ORAL 01/19/19 21:00 01/26/19 20:59 01/20/19 08:08 Methylprednisolone Sodium Succinate (Solu-MEDROL) 60 mg EVERY 12 HOURS IV 01/19/19 21:00 02/17/19 00:00 01/20/19 08:07 Nitroglycerin (Ntg) 0.4 mg Q5M X 3 DOSES PRN SL Prn Chest Pain 01/19/19 17:34 02/16/19 17:33 Ondansetron HCl (Zofran) 4 mg Q6H PRN IVP Nausea & Vomiting 01/19/19 17:34 02/16/19 17:33 Promethazine HCl/ Codeine (Phenergan with Codeine) 5 ml Q6H PRN ORAL cough 01/19/19 17:34 02/16/19 17:33 Quetiapine Fumarate (SEROquel) 25 mg Q12HR ORAL 01/19/19 21:00 02/17/19 20:59 01/20/19 08:08 Temazepam (Restoril) 15 mg HSPRN PRN ORAL Insomnia 01/19/19 21:00 01/24/19 20:59 Theophylline (Jimmy-Dur) 100 mg EVERY 12 HOURS ORAL 01/19/19 21:00 02/16/19 20:59 01/20/19 08:08 Katt Ken M.D. Jan 20, 2019 13:38
[2019-01-20] MEDS ORDERED: Azithromycin 250mg tab ORAL SCH (14:00)
[2019-01-20 16:00] VITALS: BP 128/77
--- NOTE | 2019-01-20 16:23 | NUR ---
*-* INSURANCE *-* ALL CLINICALS,REVIEWS AND INTERQUAL HAVE BEEN FAXED TO: [employer] PLEASE FAX THE REVIEW /CLINICAL NCM: COLETTE P- [phone] X Claudia F- [phone]....
--- NOTE | 2019-01-20 19:45 | NUR ---
NURSE NOTES: Received pt. and report from HUSSEIN Smith. Observe pt. resting in bed and watching TV. security monitor is in placed, IV site is intact, asymptomatic, and patent. Bed is in the lowest position and locked, call light within reach. No SOB or acute distress noted at this time. Will continue plan of care.
[2019-01-20 20:00] VITALS: BP 144/79
--- NOTE | 2019-01-20 20:00 | NUR ---
HAND-OFF: Report given to HUSSEIN Nolasco.
[2019-01-21] VITALS: BP 141/74
[2019-01-21 04:00] VITALS: BP 121/66
[2019-01-21] MEDS: Aztreonam Inj 1 GM in NS 50 ML IVPB SCH ×3 (05:49→20:57)
[2019-01-21 07:17] LABS: HEMATOCRIT 33.2 % (37.0-47.0); HEMOGLOBIN 10.1 G/DL (12.0-16.0); MEAN CORPUSCULAR VOLUME 87 FL (80-99); PLATELET COUNT 301 K/UL (150-450); RED BLOOD COUNT 3.82 M/UL (4.20-5.40); RED CELL DISTRIBUTION WIDTH 17.6 % (11.6-14.8); WHITE BLOOD COUNT 6.5 K/UL (4.8-10.8)
[2019-01-21 07:30] LABS: ANION GAP 4 mmol/L (5-15); BLOOD UREA NITROGEN 32 mg/dL (7-18); CALCIUM 9.6 MG/DL (8.5-10.1); CARBON DIOXIDE 28 MMOL/L (21-32); CHLORIDE 107 MMOL/L (98-107); CREATININE 0.8 MG/DL (0.55-1.30); POTASSIUM 4.3 MMOL/L (3.5-5.1); SODIUM 139 MMOL/L (136-145)
[2019-01-21 08:00] VITALS: BP 140/80
--- NOTE | 2019-01-21 08:00 | NUR ---
NURSE NOTES: Pt awake/alert in bed, breathing easily on 2 lpm nasal cannula, sts breathing is getting much better and denies pain at this time. Vital signs stable with SR @76 on monitor. IV access LAC with NS running at TKO. Bed left in low position, side rails up x 2 and call light left neat pt's hand.
--- NOTE | 2019-01-21 08:06 | NUR ---
HAND-OFF: Report given to HUSSEIN Suarez.
--- NOTE | 2019-01-21 08:37 | General Progress Note ---
Assessment/Plan Problem List: (1) UTI (urinary tract infection) ICD Codes: N39.0 - Urinary tract infection, site not specified SNOMED: 07907569 (2) Anemia ICD Codes: D64.9 - Anemia, unspecified SNOMED: 693834483 (3) Arthritis ICD Codes: M19.90 - Unspecified osteoarthritis, unspecified site SNOMED: 7004644 (4) Hypertension ICD Codes: I10 - Essential (primary) hypertension SNOMED: 18012703 (5) COPD exacerbation ICD Codes: J44.1 - Chronic obstructive pulmonary disease with (acute) exacerbation SNOMED: 911489169, 323869928, 383626693 (6) CHF exacerbation ICD Codes: I50.9 - Heart failure, unspecified SNOMED: 29971818, 598555702, 473395385 (7) Cervical radiculopathy ICD Codes: M54.12 - Radiculopathy, cervical region SNOMED: 43049837 Status: unchanged Assessment/Plan o2 pulm tx abt pain control pt diet sx eval cbc bmp am Subjective Constitutional: Reports: weakness Respiratory: Reports: shortness of breath Allergies: Coded Allergies: PENICILLINS (Verified Allergy, Unknown, SWELLING EVERYWHERE, EVEN EYES PER PATIENT, 11/24/11) All Systems: reviewed and negative except above Subjective o2nc anxious Objective Last 24 Hour Vital Signs Date Time Temp Pulse Resp B/P (MAP) Pulse Ox O2 Delivery O2 Flow Rate FiO2 01/21/19 08:02 Nasal Cannula 2.0 28 01/21/19 08:02 98 Nasal Cannula 2.0 28 01/21/19 08:02 84 20 Nasal Cannula 2.0 28 01/21/19 04:00 97.4 67 18 121/66 (84) 100 01/21/19 04:00 76 01/21/19 00:00 73 01/21/19 00:00 98.1 73 19 141/74 (96) 100 01/20/19 20:51 80 20 Nasal Cannula 2.0 28 01/20/19 20:51 Nasal Cannula 2.0 28 01/20/19 20:51 98 Nasal Cannula 2.0 28 01/20/19 20:00 98.7 71 20 144/79 (100) 100 01/20/19 20:00 69 01/20/19 16:00 85 01/20/19 16:00 96.8 78 18 128/77 (94) 98 01/20/19 12:00 75 01/20/19 12:00 98.1 85 18 134/79 (97) 100 01/20/19 08:54 83 20 Nasal Cannula 2.0 28 Intake and Output 01/20/19 01/21/19 19:00 07:00 Intake Total 540 ml Balance 540 ml Intake Oral 540 ml # Voids 1 Laboratory Tests 01/21/19 06:04: White Blood Count 6.5, Red Blood Count 3.82L, Hemoglobin 10.1L, Hematocrit 33.2L , Mean Corpuscular Volume 87, Mean Corpuscular Hemoglobin 26.5L, Mean Corpuscular Hemoglobin Concent 30.5L, Red Cell Distribution Width 17.6H, Platelet Count 301, Mean Platelet Volume 6.3L, Neutrophils (%) (Auto) , Lymphocytes (%) (Auto) , Monocytes (%) (Auto) , Eosinophils (%) (Auto) , Basophils (%) (Auto) , Sodium Level 139, Potassium Level 4.3, Chloride Level 107 , Carbon Dioxide Level 28, Anion Gap 4L, Blood Urea Nitrogen 32H, Creatinine 0.8 , Estimat Glomerular Filtration Rate , Glucose Level 127H, Calcium Level 9.6, Hepatitis C Antibody [Pending], Hepatitis C RNA (PCR) IUs/ml [Pending], Hepatitis C RNA (PCR) log IUs/ml [Pending] Height (Feet): 5 Height (Inches): 6.00 Weight (Pounds): 120 General Appearance: lethargic EENT: normal ENT inspection Neck: normal alignment Cardiovascular: normal peripheral pulses, normal rate, regular rhythm Respiratory/Chest: chest wall non-tender, decreased breath sounds Abdomen: normal bowel sounds, non tender, soft Extremities: normal inspection Edema: no edema noted Arm (L), no edema noted Arm (R), no edema noted Leg (L), no edema noted Leg (R), no edema noted Pedal (L), no edema noted Pedal (R), no edema noted Generalized Neurologic: responsive, motor weakness Skin: normal pigmentation, warm/dry Rio Lema DO Jan 21, 2019 08:37
[2019-01-21] MEDS ORDERED: Azithromycin 250mg tab ORAL SCH (09:00)
[2019-01-21] MEDS: Theophylline ER 100mg ORAL SCH ×2 (09:19→20:53)
[2019-01-21] MEDS: Heparin 5000 units/ml inj SUBQ SCH ×2 (09:20→20:52)
[2019-01-21] MEDS: Aspirin EC 81mg tab ORAL SCH (09:21)
[2019-01-21] MEDS: Solu-MEDROL 125mg Inj IV SCH (09:22)
--- NOTE | 2019-01-21 10:35 | Infectious Diseases Prog Note ---
Assessment/Plan Assessment/Plan Abx: Ceftriaxone x1 01/17 Aztreonam 01/18- Assessment: Probable Aspiration PNA vs pneumonitis Pneumomediastinum-suspected to rupture R side paratracheal bleb -01/20 CXR: Increasing bilateral parenchymal opacities, likely reflecting increasing edema or infiltrate superimposed on pre-existing chronic opacities. Central mediastinal lucency, likely reflects pneumomediastinum described on recent chest CT -CTA chest: Negative for acute pulmonary embolus or other acute thoracic vascular pathology. Pneumomediastinum. Suspect due to a ruptured right-sided medial bleb. Evidence of extensive chronic pulmonary parenchymal interstitial disease, with areas of honeycombing and bronchiectasis. No definite acute pulmonary parenchymal process. Ectatic main and left main pulmonary arteries, suggestive of pulmonary arterial hypertension. Bullae and subpleural blebs, may be related to the interstitial fibrotic process or could represent COPD changes -CXR: Cardiomegaly. Bilateral extensive interstitial and airspace opacities, slightly increased from but similar in distribution to prior study of 2017. Suspect component of chronic interstitial fibrosis with superimposed acute edema or infiltrates -influenza sc neg Afebrile No leukocytosis AST elevation; improving -HIV ab sc neg -Hep C+ DM HTN [place] CAD CHF cervical radiculopathy CVA asthma COPD /Emphysema sp Bilateral hip replacement senior care resident Plan: -Continue empiric IV Aztreonam #4/5-7 and add Azithromycin #2 atypical coverage -upon discharge can be transition to PO Levaquin -01/17 SP Ceftriaxone x1 -f/u cx -monitor CBC/CMP, temperatures -f/u legionella ag urine -aspiration precautions -f/u Hep C VL Thank you for this consultation. Will continue to follow along with you. Discussed with RN. Subjective Allergies: Coded Allergies: PENICILLINS (Verified Allergy, Unknown, SWELLING EVERYWHERE, EVEN EYES PER PATIENT, 11/24/11) Subjective afebrile at 2l NC no leukocytosis AST improving Objective Vital Signs Last 24 Hour Vital Signs Date Time Temp Pulse Resp B/P (MAP) Pulse Ox O2 Delivery O2 Flow Rate FiO2 01/21/19 08:02 Nasal Cannula 2.0 28 01/21/19 08:02 98 Nasal Cannula 2.0 28 01/21/19 08:02 84 20 Nasal Cannula 2.0 28 01/21/19 04:00 97.4 67 18 121/66 (84) 100 01/21/19 04:00 76 01/21/19 00:00 73 01/21/19 00:00 98.1 73 19 141/74 (96) 100 01/20/19 20:51 80 20 Nasal Cannula 2.0 28 01/20/19 20:51 Nasal Cannula 2.0 28 01/20/19 20:51 98 Nasal Cannula 2.0 28 01/20/19 20:00 98.7 71 20 144/79 (100) 100 01/20/19 20:00 69 01/20/19 16:00 85 01/20/19 16:00 96.8 78 18 128/77 (94) 98 01/20/19 12:00 75 01/20/19 12:00 98.1 85 18 134/79 (97) 100 Height (Feet): 5 Height (Inches): 6.00 Weight (Pounds): 120 Objective GENERAL: Calm in bed, O2 NC, slight short of breath. Oriented x2, no acute distress. CARDIOVASCULAR: No murmurs. LUNGS: Poor air exchange. ABDOMEN: Bowel sounds distant. EXTREMITIES: No cyanosis, clubbing, or edema. NEUROLOGIC: The patient moves all extremities, slightly weak. Microbiology Date/Time Source Procedure Growth Status 01/19/19 11:30 Sputum Gram Stain - Final Resulted 01/19/19 11:30 Sputum Sputum Culture - Preliminary NORMAL UPPER RESPIRATORY ELDER AT 24 ... Resulted 01/18/19 15:20 Urine,Clean Catch Urine Culture - Final Mixed Gram Positive Organism Complete Laboratory Tests Test 01/21/19 06:04 White Blood Count 6.5 K/UL (4.8-10.8) Red Blood Count 3.82 M/UL (4.20-5.40) L Hemoglobin 10.1 G/DL (12.0-16.0) L Hematocrit 33.2 % (37.0-47.0) L Mean Corpuscular Volume 87 FL (80-99) Mean Corpuscular Hemoglobin 26.5 PG (27.0-31.0) L Mean Corpuscular Hemoglobin Concent 30.5 G/DL (32.0-36.0) L Red Cell Distribution Width 17.6 % (11.6-14.8) H Platelet Count 301 K/UL (150-450) Mean Platelet Volume 6.3 FL (6.5-10.1) L Neutrophils (%) (Auto) % (45.0-75.0) Lymphocytes (%) (Auto) % (20.0-45.0) Monocytes (%) (Auto) % (1.0-10.0) Eosinophils (%) (Auto) % (0.0-3.0) Basophils (%) (Auto) % (0.0-2.0) Differential Total Cells Counted 100 Neutrophils % (Manual) 88 % (45-75) H Lymphocytes % (Manual) 9 % (20-45) L Monocytes % (Manual) 3 % (1-10) Eosinophils % (Manual) 0 % (0-3) Basophils % (Manual) 0 % (0-2) Band Neutrophils 0 % (0-8) Platelet Estimate Adequate Platelet Morphology Normal Hypochromasia 1+ Anisocytosis 1+ Sodium Level 139 MMOL/L (136-145) Potassium Level 4.3 MMOL/L (3.5-5.1) Chloride Level 107 MMOL/L (98-107) Carbon Dioxide Level 28 MMOL/L (21-32) Anion Gap 4 mmol/L (5-15) L Blood Urea Nitrogen 32 mg/dL (7-18) H Creatinine 0.8 MG/DL (0.55-1.30) Estimat Glomerular Filtration Rate mL/min (>60) Glucose Level 127 MG/DL (74-106) H Calcium Level 9.6 MG/DL (8.5-10.1) Hepatitis C Antibody Pending Hepatitis C RNA (PCR) IUs/ml Pending Hepatitis C RNA (PCR) log IUs/ml Pending Current Medications Medications (Trade) Dose Ordered Sig/Charly Route PRN Reason Start Time Stop Time Status Last Admin Dose Admin Albuterol/ Ipratropium (Albuterol/ Ipratropium) 3 ml Q4H PRN HHN dyspnea 01/19/19 17:34 01/22/19 17:33 Aspirin (Ecotrin) 81 mg DAILY ORAL 01/20/19 09:00 02/18/19 08:59 01/21/19 09:21 Azithromycin (Zithromax) 500 mg DAILY ORAL 01/21/19 09:00 01/28/19 08:59 01/21/19 09:19 Aztreonam 1 gm/ Sodium Chloride 50 ml @ 100 mls/hr Q8HR IVPB 01/19/19 22:00 01/25/19 11:59 01/21/19 05:49 Dextrose (Dextrose 50%) 25 ml Q30M PRN IV Hypoglycemia 01/19/19 17:33 02/16/19 17:32 Dextrose (Dextrose 50%) 50 ml Q30M PRN IV Hypoglycemia 01/19/19 17:33 02/16/19 17:32 Heparin Sodium (Porcine) (Heparin 5000 units/ml) 5,000 units EVERY 12 HOURS SUBQ 01/19/19 21:00 02/16/19 20:59 01/21/19 09:20 Lidocaine (Xylocaine 1% MPF 5ml) 10 ml Q4H PRN HHN cough 01/19/19 17:36 02/18/19 17:35 Lorazepam (Ativan 2mg/ml 1ml) 0.5 mg Q4H PRN IV For Anxiety 01/19/19 17:34 01/24/19 17:33 Methadone HCl (Methadone HCl) 2.5 mg EVERY 12 HOURS ORAL 01/19/19 21:00 01/26/19 20:59 01/21/19 09:21 Methylprednisolone Sodium Succinate (Solu-MEDROL) 60 mg EVERY 12 HOURS IV 01/19/19 21:00 02/17/19 00:00 01/21/19 09:22 Nitroglycerin (Ntg) 0.4 mg Q5M X 3 DOSES PRN SL Prn Chest Pain 01/19/19 17:34 02/16/19 17:33 Ondansetron HCl (Zofran) 4 mg Q6H PRN IVP Nausea & Vomiting 01/19/19 17:34 02/16/19 17:33 Promethazine HCl/ Codeine (Phenergan with Codeine) 5 ml Q6H PRN ORAL cough 01/19/19 17:34 02/16/19 17:33 Quetiapine Fumarate (SEROquel) 25 mg Q12HR ORAL 01/19/19 21:00 02/17/19 20:59 01/21/19 09:19 Temazepam (Restoril) 15 mg HSPRN PRN ORAL Insomnia 01/19/19 21:00 01/24/19 20:59 Theophylline (Jimmy-Dur) 100 mg EVERY 12 HOURS ORAL 01/19/19 21:00 02/16/19 20:59 01/21/19 09:19 Katt Ken M.D. Jan 21, 2019 10:35
[2019-01-21 12:00] VITALS: BP 145/72
--- NOTE | 2019-01-21 15:04 | Cardiac Electrophysiology PN ---
Assessment/Plan Assessment/Plan 1. Type 2 NSTEMI. No CP or SOB. EF normal but has severe pulmonary HTN ECG incomplete LBBB, LVH. On aspirin. Off Betablocker for Asthma on steroids 2. CHF due to diastolic dysfunction with BNP>1500. Add Lasix 40 mg po daily 3. Hypertension. 4. COPD exacerbation on Abx 5. Anemia. 6. UTI 8. Osteoarthritis. 9. Cervical radiculopathy. CHRISTEL RN Subjective Subjective Comfortable in NAD. No events. Remained in SR Objective Last 24 Hour Vital Signs Date Time Temp Pulse Resp B/P (MAP) Pulse Ox O2 Delivery O2 Flow Rate FiO2 01/21/19 12:00 74 01/21/19 12:00 97.6 74 18 145/72 (96) 100 01/21/19 08:02 Nasal Cannula 2.0 28 01/21/19 08:02 98 Nasal Cannula 2.0 28 01/21/19 08:02 84 20 Nasal Cannula 2.0 28 01/21/19 08:00 97.2 85 18 140/80 (100) 99 01/21/19 08:00 75 01/21/19 04:00 97.4 67 18 121/66 (84) 100 01/21/19 04:00 76 01/21/19 00:00 73 01/21/19 00:00 98.1 73 19 141/74 (96) 100 01/20/19 20:51 80 20 Nasal Cannula 2.0 28 01/20/19 20:51 Nasal Cannula 2.0 28 01/20/19 20:51 98 Nasal Cannula 2.0 28 01/20/19 20:00 98.7 71 20 144/79 (100) 100 01/20/19 20:00 69 01/20/19 16:00 85 01/20/19 16:00 96.8 78 18 128/77 (94) 98 Intake and Output 01/20/19 01/21/19 19:00 07:00 Intake Total 540 ml Balance 540 ml Intake Oral 540 ml # Voids 1 Laboratory Tests Test 01/21/19 06:04 White Blood Count 6.5 K/UL (4.8-10.8) Red Blood Count 3.82 M/UL (4.20-5.40) L Hemoglobin 10.1 G/DL (12.0-16.0) L Hematocrit 33.2 % (37.0-47.0) L Mean Corpuscular Volume 87 FL (80-99) Mean Corpuscular Hemoglobin 26.5 PG (27.0-31.0) L Mean Corpuscular Hemoglobin Concent 30.5 G/DL (32.0-36.0) L Red Cell Distribution Width 17.6 % (11.6-14.8) H Platelet Count 301 K/UL (150-450) Mean Platelet Volume 6.3 FL (6.5-10.1) L Neutrophils (%) (Auto) % (45.0-75.0) Lymphocytes (%) (Auto) % (20.0-45.0) Monocytes (%) (Auto) % (1.0-10.0) Eosinophils (%) (Auto) % (0.0-3.0) Basophils (%) (Auto) % (0.0-2.0) Differential Total Cells Counted 100 Neutrophils % (Manual) 88 % (45-75) H Lymphocytes % (Manual) 9 % (20-45) L Monocytes % (Manual) 3 % (1-10) Eosinophils % (Manual) 0 % (0-3) Basophils % (Manual) 0 % (0-2) Band Neutrophils 0 % (0-8) Platelet Estimate Adequate Platelet Morphology Normal Hypochromasia 1+ Anisocytosis 1+ Sodium Level 139 MMOL/L (136-145) Potassium Level 4.3 MMOL/L (3.5-5.1) Chloride Level 107 MMOL/L (98-107) Carbon Dioxide Level 28 MMOL/L (21-32) Anion Gap 4 mmol/L (5-15) L Blood Urea Nitrogen 32 mg/dL (7-18) H Creatinine 0.8 MG/DL (0.55-1.30) Estimat Glomerular Filtration Rate mL/min (>60) Glucose Level 127 MG/DL (74-106) H Calcium Level 9.6 MG/DL (8.5-10.1) Hepatitis C Antibody Pending Hepatitis C RNA (PCR) IUs/ml Pending Hepatitis C RNA (PCR) log IUs/ml Pending Microbiology Date/Time Source Procedure Growth Status 01/19/19 11:30 Sputum Gram Stain - Final Resulted 01/19/19 11:30 Sputum Sputum Culture - Preliminary NORMAL UPPER RESPIRATORY ELDER AT 24 ... Resulted 01/18/19 15:20 Urine,Clean Catch Urine Culture - Final Mixed Gram Positive Organism Complete Objective HEENT: No JVD Respiratory/Chest: Rhonchi - bilaterally Cardiovascular/Chest: normal peripheral pulses, normal rate, regular rhythm Abdomen: normal bowel sounds, non tender, soft, no organomegaly Extremities: no edema Renzo Burgess MD Jan 21, 2019 15:04
--- NOTE | 2019-01-21 15:30 | Pulmonology Progress Note ---
Assessment/Plan Problems: (1) Acute respiratory failure (2) COPD exacerbation (3) Pulmonary hypertension (4) Pulmonary fibrosis (5) Elevated troponin (6) Protein-calorie malnutrition, severe (7) Hypertension Assessment/Plan feeling better taper steroids continue abx until sputum is available CT chest reviewed, pt has extensive fibrosis and chronic changes Echo reviewed, Grade one diastolic dysfunction trial of lidocaine inhalers and chronic Methadone to suppress dyspnea. f/u cardiology recommendations Poor overall prognosis. med/surgery Subjective ROS Limited/Unobtainable: No Interval Events: dong better Allergies: Coded Allergies: PENICILLINS (Verified Allergy, Unknown, SWELLING EVERYWHERE, EVEN EYES PER PATIENT, 11/24/11) Objective Last 24 Hour Vital Signs Date Time Temp Pulse Resp B/P (MAP) Pulse Ox O2 Delivery O2 Flow Rate FiO2 01/21/19 12:00 74 01/21/19 12:00 97.6 74 18 145/72 (96) 100 01/21/19 08:02 Nasal Cannula 2.0 28 01/21/19 08:02 98 Nasal Cannula 2.0 28 01/21/19 08:02 84 20 Nasal Cannula 2.0 28 01/21/19 08:00 97.2 85 18 140/80 (100) 99 01/21/19 08:00 75 01/21/19 04:00 97.4 67 18 121/66 (84) 100 01/21/19 04:00 76 01/21/19 00:00 73 01/21/19 00:00 98.1 73 19 141/74 (96) 100 01/20/19 20:51 80 20 Nasal Cannula 2.0 28 01/20/19 20:51 Nasal Cannula 2.0 28 01/20/19 20:51 98 Nasal Cannula 2.0 28 01/20/19 20:00 98.7 71 20 144/79 (100) 100 01/20/19 20:00 69 01/20/19 16:00 85 01/20/19 16:00 96.8 78 18 128/77 (94) 98 Intake and Output 01/20/19 01/21/19 19:00 07:00 Intake Total 540 ml Balance 540 ml Intake Oral 540 ml # Voids 1 General Appearance: cachetic HEENT: normocephalic, atraumatic Respiratory/Chest: chest wall non-tender, normal breath sounds Cardiovascular: normal peripheral pulses, regular rhythm Abdomen: normal bowel sounds, soft, non tender Microbiology Date/Time Source Procedure Growth Status 01/19/19 11:30 Sputum Gram Stain - Final Resulted 01/19/19 11:30 Sputum Sputum Culture - Preliminary NORMAL UPPER RESPIRATORY ELDER AT 24 ... Resulted Laboratory Tests 01/21/19 06:04: White Blood Count 6.5, Red Blood Count 3.82L, Hemoglobin 10.1L, Hematocrit 33.2L , Mean Corpuscular Volume 87, Mean Corpuscular Hemoglobin 26.5L, Mean Corpuscular Hemoglobin Concent 30.5L, Red Cell Distribution Width 17.6H, Platelet Count 301, Mean Platelet Volume 6.3L, Neutrophils (%) (Auto) , Lymphocytes (%) (Auto) , Monocytes (%) (Auto) , Eosinophils (%) (Auto) , Basophils (%) (Auto) , Differential Total Cells Counted 100, Neutrophils % ( Manual) 88H, Lymphocytes % (Manual) 9L, Monocytes % (Manual) 3, Eosinophils % ( Manual) 0, Basophils % (Manual) 0, Band Neutrophils 0, Platelet Estimate Adequate, Platelet Morphology Normal, Hypochromasia 1+, Anisocytosis 1+, Sodium Level 139, Potassium Level 4.3, Chloride Level 107, Carbon Dioxide Level 28, Anion Gap 4L, Blood Urea Nitrogen 32H, Creatinine 0.8, Estimat Glomerular Filtration Rate , Glucose Level 127H, Calcium Level 9.6, Hepatitis C Antibody [ Pending], Hepatitis C RNA (PCR) IUs/ml [Pending], Hepatitis C RNA (PCR) log IUs/ ml [Pending] Current Medications Medications (Trade) Dose Ordered Sig/Charly Route PRN Reason Start Time Stop Time Status Last Admin Dose Admin Albuterol/ Ipratropium (Albuterol/ Ipratropium) 3 ml Q4H PRN HHN dyspnea 01/19/19 17:34 01/22/19 17:33 Aspirin (Ecotrin) 81 mg DAILY ORAL 01/20/19 09:00 02/18/19 08:59 01/21/19 09:21 Azithromycin (Zithromax) 500 mg DAILY ORAL 01/21/19 09:00 01/28/19 08:59 01/21/19 09:19 Aztreonam 1 gm/ Sodium Chloride 50 ml @ 100 mls/hr Q8HR IVPB 01/19/19 22:00 01/25/19 11:59 01/21/19 14:22 Dextrose (Dextrose 50%) 25 ml Q30M PRN IV Hypoglycemia 01/19/19 17:33 02/16/19 17:32 Dextrose (Dextrose 50%) 50 ml Q30M PRN IV Hypoglycemia 01/19/19 17:33 02/16/19 17:32 Furosemide (Lasix) 40 mg DAILY ORAL 01/22/19 09:00 02/21/19 08:59 Heparin Sodium (Porcine) (Heparin 5000 units/ml) 5,000 units EVERY 12 HOURS SUBQ 01/19/19 21:00 02/16/19 20:59 01/21/19 09:20 Lidocaine (Xylocaine 1% MPF 5ml) 10 ml Q4H PRN HHN cough 01/19/19 17:36 02/18/19 17:35 Lorazepam (Ativan 2mg/ml 1ml) 0.5 mg Q4H PRN IV For Anxiety 01/19/19 17:34 01/24/19 17:33 Methadone HCl (Methadone HCl) 2.5 mg EVERY 12 HOURS ORAL 01/19/19 21:00 01/26/19 20:59 01/21/19 09:21 Methylprednisolone Sodium Succinate (Solu-MEDROL) 60 mg EVERY 12 HOURS IV 01/19/19 21:00 02/17/19 00:00 01/21/19 09:22 Nitroglycerin (Ntg) 0.4 mg Q5M X 3 DOSES PRN SL Prn Chest Pain 01/19/19 17:34 02/16/19 17:33 Ondansetron HCl (Zofran) 4 mg Q6H PRN IVP Nausea & Vomiting 01/19/19 17:34 02/16/19 17:33 Promethazine HCl/ Codeine (Phenergan with Codeine) 5 ml Q6H PRN ORAL cough 01/19/19 17:34 02/16/19 17:33 Quetiapine Fumarate (SEROquel) 25 mg Q12HR ORAL 01/19/19 21:00 02/17/19 20:59 01/21/19 09:19 Temazepam (Restoril) 15 mg HSPRN PRN ORAL Insomnia 01/19/19 21:00 01/24/19 20:59 Theophylline (Jimmy-Dur) 100 mg EVERY 12 HOURS ORAL 01/19/19 21:00 02/16/19 20:59 01/21/19 09:19 Jersey Chadwick MD Jan 21, 2019 15:30
[2019-01-21 16:00] VITALS: BP 135/80
[2019-01-21] MEDS ORDERED: Albuterol/Ipratropium 3ml neb HHN PRN (19:13)
[2019-01-21] MEDS ORDERED: Lidocaine 1% MPF 10mg/ml 5ml HHN PRN (19:13)
[2019-01-21] MEDS ORDERED: LORazepam Inj 2mg/ml 1ml IV PRN (19:13)
[2019-01-21] MEDS ORDERED: Nitroglycerin Subl 0.4mg tab SL PRN (19:15)
--- NOTE | 2019-01-21 19:45 | NUR ---
NURSE NOTES: Pt lying in bed w/bed in lowest position and call light within reach. Pt A&Ox4; on 2L NC; VSS; and in no apparent distress at this time. IV site intact/asymptomatic & H/L'd and skin intact. Will continue to monitor.
--- NOTE | 2019-01-21 19:52 | NUR ---
CASE MANAGEMENT: REVIEW SI: COPD EXACERBATION T 97.2 HR 67 RR 18 BP 141/74 SAT 99% NC/2L H/H 10.1/33.2 IS: AZACTAM IV Q8HR SOLU MEDROL IV Q12HR LASIX PO MED/SURG STATUS DCP: PATIENT IS FROM [facility]
[2019-01-21 20:00] VITALS: BP 136/74
[2019-01-22] VITALS: BP 121/66
[2019-01-22 04:00] VITALS: BP 126/75
[2019-01-22] MEDS: Aztreonam Inj 1 GM in NS 50 ML IVPB SCH ×3 (06:00→21:40)
--- NOTE | 2019-01-22 07:10 | NUR ---
NURSE NOTES: Report received from outgoing RN, rounds made. Patient resting in semi-fowlers position, in bed. Denies pain, SOB on 2LNC, [place]. No cough noted. External urinary catheter in place, to suction. Call light in reach, bed in lowest position, will continue to monitor.
--- NOTE | 2019-01-22 07:24 | NUR ---
HAND-OFF: Report given to HUSSEIN Ruby.
[2019-01-22 08:00] VITALS: BP 113/60
[2019-01-22 08:09] LABS: BASOPHILS % (AUTO) 1.6 % (0.0-2.0); EOSINOPHILS % (AUTO) 0.4 % (0.0-3.0); HEMATOCRIT 34.8 % (37.0-47.0); HEMOGLOBIN 10.7 G/DL (12.0-16.0); LYMPHOCYTES % (AUTO) 26.8 % (20.0-45.0); MEAN CORPUSCULAR VOLUME 86 FL (80-99); NEUTROPHILS % (AUTO) 61.4 % (45.0-75.0); PLATELET COUNT 297 K/UL (150-450); RED BLOOD COUNT 4.02 M/UL (4.20-5.40); RED CELL DISTRIBUTION WIDTH 17.6 % (11.6-14.8); WHITE BLOOD COUNT 7.8 K/UL (4.8-10.8)
--- NOTE | 2019-01-22 08:40 | General Progress Note ---
Assessment/Plan Problem List: (1) UTI (urinary tract infection) ICD Codes: N39.0 - Urinary tract infection, site not specified SNOMED: 62484616 (2) Anemia ICD Codes: D64.9 - Anemia, unspecified SNOMED: 315784865 (3) Arthritis ICD Codes: M19.90 - Unspecified osteoarthritis, unspecified site SNOMED: 6063895 (4) Hypertension ICD Codes: I10 - Essential (primary) hypertension SNOMED: 47394445 (5) COPD exacerbation ICD Codes: J44.1 - Chronic obstructive pulmonary disease with (acute) exacerbation SNOMED: 575095869, 819829822, 455323124 (6) CHF exacerbation ICD Codes: I50.9 - Heart failure, unspecified SNOMED: 08157872, 895128621, 789812447 (7) Cervical radiculopathy ICD Codes: M54.12 - Radiculopathy, cervical region SNOMED: 28919061 Status: stable, progressing Assessment/Plan o2 pulm tx abt pain control pt diet sx eval cbc bmp am dc plan snf Subjective Constitutional: Reports: weakness Respiratory: Reports: shortness of breath Allergies: Coded Allergies: PENICILLINS (Verified Allergy, Unknown, SWELLING EVERYWHERE, EVEN EYES PER PATIENT, 11/24/11) All Systems: reviewed and negative except above Subjective o2nc anxious Objective Last 24 Hour Vital Signs Date Time Temp Pulse Resp B/P (MAP) Pulse Ox O2 Delivery O2 Flow Rate FiO2 01/22/19 07:40 Nasal Cannula 2.0 28 01/22/19 07:40 98 Nasal Cannula 2.0 28 01/22/19 04:00 97.5 69 18 126/75 (92) 100 01/22/19 00:00 97.7 64 18 121/66 (84) 100 01/21/19 20:55 97 Nasal Cannula 2.0 28 01/21/19 20:55 Nasal Cannula 2.0 28 01/21/19 20:00 97.3 77 18 136/74 (94) 96 01/21/19 16:00 82 01/21/19 16:00 97.3 82 18 135/80 (98) 100 01/21/19 12:00 74 01/21/19 12:00 97.6 74 18 145/72 (96) 100 Intake and Output 01/21/19 01/22/19 19:00 07:00 Intake Total 740 ml 220 ml Output Total 450 ml Balance 740 ml -230 ml Intake Oral 740 ml 120 ml IV Total 100 ml Output Urine Total 450 ml # Voids 2 Laboratory Tests 01/22/19 06:58: White Blood Count 7.8, Red Blood Count 4.02L, Hemoglobin 10.7L, Hematocrit 34.8L , Mean Corpuscular Volume 86, Mean Corpuscular Hemoglobin 26.7L, Mean Corpuscular Hemoglobin Concent 30.9L, Red Cell Distribution Width 17.6H, Platelet Count 297, Mean Platelet Volume 6.7, Neutrophils (%) (Auto) 61.4, Lymphocytes (%) (Auto) 26.8, Monocytes (%) (Auto) 10.0, Eosinophils (%) (Auto) 0.4, Basophils (%) (Auto) 1.6, Sodium Level [Pending], Potassium Level [Pending] , Chloride Level [Pending], Carbon Dioxide Level [Pending], Blood Urea Nitrogen [Pending], Creatinine [Pending], Estimat Glomerular Filtration Rate [Pending], Glucose Level [Pending], Calcium Level [Pending] Height (Feet): 5 Height (Inches): 6.00 Weight (Pounds): 120 General Appearance: lethargic EENT: normal ENT inspection Neck: normal alignment Cardiovascular: normal peripheral pulses, normal rate, regular rhythm Respiratory/Chest: chest wall non-tender, decreased breath sounds Abdomen: normal bowel sounds, non tender, soft Extremities: normal inspection Edema: no edema noted Arm (L), no edema noted Arm (R), no edema noted Leg (L), no edema noted Leg (R), no edema noted Pedal (L), no edema noted Pedal (R), no edema noted Generalized Neurologic: responsive, motor weakness Skin: normal pigmentation, warm/dry Rio Lmea DO Jan 22, 2019 08:40
[2019-01-22] MEDS ORDERED: Furosemide 40mg tab ORAL SCH (09:00)
[2019-01-22 09:22] LABS: ANION GAP 5 mmol/L (5-15); BLOOD UREA NITROGEN 28 mg/dL (7-18); CALCIUM 9.5 MG/DL (8.5-10.1); CARBON DIOXIDE 29 MMOL/L (21-32); CHLORIDE 104 MMOL/L (98-107); CREATININE 0.8 MG/DL (0.55-1.30); POTASSIUM 3.9 MMOL/L (3.5-5.1); SODIUM 138 MMOL/L (136-145)
[2019-01-22] MEDS: Aspirin EC 81mg tab ORAL SCH (09:38)
[2019-01-22] MEDS: Theophylline ER 100mg ORAL SCH ×2 (09:38→21:22)
[2019-01-22] MEDS: Azithromycin 250mg tab ORAL SCH (09:38)
[2019-01-22] MEDS: Furosemide 40mg tab ORAL SCH (09:38)
[2019-01-22] MEDS: Heparin 5000 units/ml inj SUBQ SCH ×2 (09:41→21:25)
[2019-01-22 12:00] VITALS: BP 139/74
[2019-01-22 16:00] VITALS: BP 117/62
--- NOTE | 2019-01-22 16:59 | Pulmonology Progress Note ---
Assessment/Plan Problems: (1) Acute respiratory failure (2) COPD exacerbation (3) Pulmonary hypertension (4) Pulmonary fibrosis (5) Elevated troponin (6) Protein-calorie malnutrition, severe (7) Hypertension Assessment/Plan feeling better taper steroids continue abx until sputum is available CT chest reviewed, pt has extensive fibrosis and chronic changes Echo reviewed, Grade one diastolic dysfunction trial of lidocaine inhalers and chronic Methadone to suppress dyspnea. f/u cardiology recommendations Poor overall prognosis. med/surgery Subjective ROS Limited/Unobtainable: No Constitutional: Reports: no symptoms HEENT: Repors: no symptoms Respiratory: Reports: no symptoms Allergies: Coded Allergies: PENICILLINS (Verified Allergy, Unknown, SWELLING EVERYWHERE, EVEN EYES PER PATIENT, 11/24/11) Objective Last 24 Hour Vital Signs Date Time Temp Pulse Resp B/P (MAP) Pulse Ox O2 Delivery O2 Flow Rate FiO2 01/22/19 12:00 98.4 81 17 139/74 (95) 98 01/22/19 08:00 98.3 66 17 113/60 (77) 98 01/22/19 07:40 Nasal Cannula 2.0 28 01/22/19 07:40 98 Nasal Cannula 2.0 28 01/22/19 04:00 97.5 69 18 126/75 (92) 100 01/22/19 00:00 97.7 64 18 121/66 (84) 100 01/21/19 20:55 97 Nasal Cannula 2.0 28 01/21/19 20:55 Nasal Cannula 2.0 28 01/21/19 20:00 97.3 77 18 136/74 (94) 96 Intake and Output 01/21/19 01/22/19 19:00 07:00 Intake Total 740 ml 220 ml Output Total 450 ml Balance 740 ml -230 ml Intake Oral 740 ml 120 ml IV Total 100 ml Output Urine Total 450 ml # Voids 2 Objective General Appearance: cachetic HEENT: normocephalic, atraumatic Respiratory/Chest: chest wall non-tender, normal breath sounds Cardiovascular: normal peripheral pulses, regular rhythm Abdomen: normal bowel sounds, soft, non tender Laboratory Tests 01/22/19 06:58: White Blood Count 7.8, Red Blood Count 4.02L, Hemoglobin 10.7L, Hematocrit 34.8L , Mean Corpuscular Volume 86, Mean Corpuscular Hemoglobin 26.7L, Mean Corpuscular Hemoglobin Concent 30.9L, Red Cell Distribution Width 17.6H, Platelet Count 297, Mean Platelet Volume 6.7, Neutrophils (%) (Auto) 61.4, Lymphocytes (%) (Auto) 26.8, Monocytes (%) (Auto) 10.0, Eosinophils (%) (Auto) 0.4, Basophils (%) (Auto) 1.6, Sodium Level 138, Potassium Level 3.9, Chloride Level 104, Carbon Dioxide Level 29, Anion Gap 5, Blood Urea Nitrogen 28H, Creatinine 0.8, Estimat Glomerular Filtration Rate , Glucose Level 83, Calcium Level 9.5 Current Medications Medications (Trade) Dose Ordered Sig/Charly Route PRN Reason Start Time Stop Time Status Last Admin Dose Admin Albuterol/ Ipratropium (Albuterol/ Ipratropium) 3 ml Q4H PRN HHN dyspnea 01/21/19 19:13 01/22/19 19:12 Aspirin (Ecotrin) 81 mg DAILY ORAL 01/22/19 09:00 02/18/19 08:59 01/22/19 09:38 Azithromycin (Zithromax) 500 mg DAILY ORAL 01/22/19 09:00 01/28/19 08:59 01/22/19 09:38 Aztreonam 1 gm/ Sodium Chloride 50 ml @ 100 mls/hr Q8HR IVPB 01/21/19 22:00 01/25/19 11:59 01/22/19 15:38 Dextrose (Dextrose 50%) 25 ml Q30M PRN IV Hypoglycemia 01/21/19 19:45 02/16/19 17:32 Dextrose (Dextrose 50%) 50 ml Q30M PRN IV Hypoglycemia 01/21/19 19:45 02/16/19 17:32 Furosemide (Lasix) 40 mg DAILY ORAL 01/22/19 09:00 02/21/19 08:59 01/22/19 09:38 Heparin Sodium (Porcine) (Heparin 5000 units/ml) 5,000 units EVERY 12 HOURS SUBQ 01/21/19 21:00 02/16/19 20:59 01/22/19 09:41 Lidocaine (Xylocaine 1% MPF 5ml) 10 ml Q4H PRN HHN cough 01/21/19 19:13 02/18/19 19:12 Lorazepam (Ativan 2mg/ml 1ml) 0.5 mg Q4H PRN IV For Anxiety 01/21/19 19:13 01/24/19 19:12 Methadone HCl (Methadone HCl) 2.5 mg EVERY 12 HOURS ORAL 01/21/19 21:00 01/26/19 20:59 01/22/19 09:40 Nitroglycerin (Ntg) 0.4 mg Q5M X 3 DOSES PRN SL Prn Chest Pain 01/21/19 19:15 02/16/19 17:33 Ondansetron HCl (Zofran) 4 mg Q6H PRN IVP Nausea & Vomiting 01/21/19 19:13 02/16/19 19:12 Promethazine HCl/ Codeine (Phenergan with Codeine) 5 ml Q6H PRN ORAL cough 01/21/19 19:14 02/16/19 19:13 Quetiapine Fumarate (SEROquel) 25 mg Q12HR ORAL 01/21/19 21:00 02/17/19 20:59 01/22/19 09:37 Temazepam (Restoril) 15 mg HSPRN PRN ORAL Insomnia 01/21/19 21:00 01/24/19 20:59 Theophylline (Jimmy-Dur) 100 mg EVERY 12 HOURS ORAL 01/21/19 21:00 02/16/19 20:59 01/22/19 09:38 Jersey Chadwick MD Jan 22, 2019 16:59
[2019-01-22] MEDS ORDERED: Tubing IV Secondary IV ONE ×2 (17:16→19:31)
[2019-01-22] MEDS ORDERED: NS 500ML ONE (17:16)
[2019-01-22] MEDS ORDERED: NS 275ml ONE (19:31)
--- NOTE | 2019-01-22 19:40 | NUR ---
HAND-OFF: Report given to Shaheen Arora RN.
--- NOTE | 2019-01-22 19:51 | NUR ---
CASE MANAGEMENT: REVIEW SI: COPD EXACERBATION T 97.9 HR 84 RR 18 BP 117/84 SAT 100% NC/4L H/H 10.7/34.8 IS: LASIX PO QD AZITHROMYCIN PO QD ALBUTEROL HHN PRN MED/SURG STATUS DCP: PATIENT IS FROM [facility]
[2019-01-22 20:00] VITALS: BP 117/84
[2019-01-23] VITALS: BP 100/61
[2019-01-23 04:00] VITALS: BP 121/75
[2019-01-23] MEDS: Aztreonam Inj 1 GM in NS 50 ML IVPB SCH ×3 (05:53→21:51)
--- NOTE | 2019-01-23 07:20 | NUR ---
NURSE NOTES: Received report from Shaheen Arora RN. Rounding done with outgoing nurse. Patient a/o x 3. Patient refused having breakfast. No SOB noted. Denies any pain at this time. Patient has O2 2L at this time. Call light within reach. Will continue to monitor.
--- NOTE | 2019-01-23 07:25 | NUR ---
HAND-OFF: Report given to CORAZON SAVAGE WITH STABLE CONDITION..
[2019-01-23 07:29] LABS: BASOPHILS % (AUTO) 1.1 % (0.0-2.0); EOSINOPHILS % (AUTO) 5.6 % (0.0-3.0); HEMATOCRIT 35.5 % (37.0-47.0); HEMOGLOBIN 11.1 G/DL (12.0-16.0); MEAN CORPUSCULAR VOLUME 88 FL (80-99); MONOCYTES % (AUTO) 7.8 % (1.0-10.0); NEUTROPHILS % (AUTO) 62.5 % (45.0-75.0); PLATELET COUNT 302 K/UL (150-450); RED BLOOD COUNT 4.02 M/UL (4.20-5.40); RED CELL DISTRIBUTION WIDTH 18.5 % (11.6-14.8); WHITE BLOOD COUNT 7.8 K/UL (4.8-10.8)
[2019-01-23 07:35] LABS: ANION GAP 8 mmol/L (5-15); BLOOD UREA NITROGEN 29 mg/dL (7-18); CALCIUM 9.6 MG/DL (8.5-10.1); CARBON DIOXIDE 29 MMOL/L (21-32); CHLORIDE 103 MMOL/L (98-107); CREATININE 0.9 MG/DL (0.55-1.30); POTASSIUM 3.8 MMOL/L (3.5-5.1); SODIUM 140 MMOL/L (136-145)
[2019-01-23 08:00] VITALS: BP 108/64
[2019-01-23] MEDS: Theophylline ER 100mg ORAL SCH ×2 (09:24→21:50)
[2019-01-23] MEDS: Furosemide 40mg tab ORAL SCH (09:24)
[2019-01-23] MEDS: Aspirin EC 81mg tab ORAL SCH (09:24)
[2019-01-23] MEDS: Azithromycin 250mg tab ORAL SCH (09:24)
[2019-01-23] MEDS: Heparin 5000 units/ml inj SUBQ SCH ×2 (09:26→21:40)
--- NOTE | 2019-01-23 09:52 | NUR ---
NURSE NOTES: Patient did not have BM for [address] Lema notified and MD ordered. 1. Colace 100mg BID 2. Dulcolax suppository 10mg BID PRN Noted and carried out.
[2019-01-23] MEDS: Docusate 100mg cap ORAL SCH ×2 (10:33→18:15)
[2019-01-23 12:00] VITALS: BP 110/69
--- NOTE | 2019-01-23 12:43 | Pulmonology Progress Note ---
Assessment/Plan Problems: (1) Acute respiratory failure (2) COPD exacerbation (3) Pulmonary hypertension (4) Pulmonary fibrosis (5) Elevated troponin (6) Protein-calorie malnutrition, severe (7) Hypertension Assessment/Plan feeling better cxr is workse continue abx until sputum is available CT chest reviewed, pt has extensive fibrosis and chronic changes Echo reviewed, Grade one diastolic dysfunction trial of lidocaine inhalers and chronic Methadone to suppress dyspnea. f/u cardiology recommendations Poor overall prognosis. med/surgery Subjective ROS Limited/Unobtainable: No Constitutional: Reports: no symptoms Respiratory: Reports: wheezing Allergies: Coded Allergies: PENICILLINS (Verified Allergy, Unknown, SWELLING EVERYWHERE, EVEN EYES PER PATIENT, 11/24/11) Objective Last 24 Hour Vital Signs Date Time Temp Pulse Resp B/P (MAP) Pulse Ox O2 Delivery O2 Flow Rate FiO2 01/23/19 12:00 99.0 88 19 110/69 (83) 100 01/23/19 09:00 Nasal Cannula 4.0 Nasal Cannula 4.0 01/23/19 08:00 98.7 84 24 108/64 (79) 100 01/23/19 07:10 100 Nasal Cannula 2.0 28 01/23/19 07:10 Nasal Cannula 2.0 28 01/23/19 04:00 98.7 77 18 121/75 (90) 99 01/23/19 00:00 98.0 71 18 100/61 (74) 100 01/22/19 21:00 Trach Collar 4.0 Nasal Cannula 4.0 01/22/19 20:10 100 Nasal Cannula 2.0 28 01/22/19 20:10 Nasal Cannula 2.0 28 01/22/19 20:00 97.9 84 18 117/84 (95) 100 01/22/19 16:00 98.4 86 18 117/62 (80) 100 Intake and Output 01/22/19 01/23/19 19:00 07:00 Intake Total 1000 ml 200 ml Output Total 500 ml Balance 1000 ml -300 ml Intake Oral 1000 ml 100 ml IV Total 100 ml Output Urine Total 500 ml # Voids 4 General Appearance: WD/WN HEENT: atraumatic Respiratory/Chest: chest wall non-tender, lungs clear Cardiovascular: normal peripheral pulses, regular rhythm Extremities: no cyanosis, no clubbing Laboratory Tests 01/23/19 05:10: White Blood Count 7.8, Red Blood Count 4.02L, Hemoglobin 11.1L, Hematocrit 35.5L , Mean Corpuscular Volume 88, Mean Corpuscular Hemoglobin 27.5, Mean Corpuscular Hemoglobin Concent 31.1L, Red Cell Distribution Width 18.5H, Platelet Count 302, Mean Platelet Volume 5.9L, Neutrophils (%) (Auto) 62.5, Lymphocytes (%) (Auto) 23.0, Monocytes (%) (Auto) 7.8, Eosinophils (%) (Auto) 5.6H, Basophils (%) (Auto) 1.1, Sodium Level 140, Potassium Level 3.8, Chloride Level 103, Carbon Dioxide Level 29, Anion Gap 8, Blood Urea Nitrogen 29H, Creatinine 0.9, Estimat Glomerular Filtration Rate , Glucose Level 74, Calcium Level 9.6 Current Medications Medications (Trade) Dose Ordered Sig/Charly Route PRN Reason Start Time Stop Time Status Last Admin Dose Admin Aspirin (Ecotrin) 81 mg DAILY ORAL 01/22/19 09:00 02/18/19 08:59 01/23/19 09:24 Azithromycin (Zithromax) 500 mg DAILY ORAL 01/22/19 09:00 01/28/19 08:59 01/23/19 09:24 Aztreonam 1 gm/ Sodium Chloride 50 ml @ 100 mls/hr Q8HR IVPB 01/21/19 22:00 01/25/19 11:59 01/23/19 05:53 Bisacodyl (Dulcolax) 10 mg BIDPRN PRN RECTAL Constipation 01/23/19 10:00 02/22/19 09:59 Dextrose (Dextrose 50%) 25 ml Q30M PRN IV Hypoglycemia 01/21/19 19:45 02/16/19 17:32 Dextrose (Dextrose 50%) 50 ml Q30M PRN IV Hypoglycemia 01/21/19 19:45 02/16/19 17:32 Docusate Sodium (Colace) 100 mg TWICE A DAY ORAL 01/23/19 10:00 02/22/19 09:59 01/23/19 10:33 Furosemide (Lasix) 40 mg DAILY ORAL 01/22/19 09:00 02/21/19 08:59 01/23/19 09:24 Heparin Sodium (Porcine) (Heparin 5000 units/ml) 5,000 units EVERY 12 HOURS SUBQ 01/21/19 21:00 02/16/19 20:59 01/23/19 09:26 Lidocaine (Xylocaine 1% MPF 5ml) 10 ml Q4H PRN HHN cough 01/21/19 19:13 02/18/19 19:12 Lorazepam (Ativan 2mg/ml 1ml) 0.5 mg Q4H PRN IV For Anxiety 01/21/19 19:13 01/24/19 19:12 Methadone HCl (Methadone HCl) 2.5 mg EVERY 12 HOURS ORAL 01/21/19 21:00 01/26/19 20:59 01/23/19 09:24 Nitroglycerin (Ntg) 0.4 mg Q5M X 3 DOSES PRN SL Prn Chest Pain 01/21/19 19:15 02/16/19 17:33 Ondansetron HCl (Zofran) 4 mg Q6H PRN IVP Nausea & Vomiting 01/21/19 19:13 02/16/19 19:12 Promethazine HCl/ Codeine (Phenergan with Codeine) 5 ml Q6H PRN ORAL cough 01/21/19 19:14 02/16/19 19:13 Quetiapine Fumarate (SEROquel) 25 mg Q12HR ORAL 01/21/19 21:00 02/17/19 20:59 01/23/19 09:24 Temazepam (Restoril) 15 mg HSPRN PRN ORAL Insomnia 01/21/19 21:00 01/24/19 20:59 Theophylline (Jimmy-Dur) 100 mg EVERY 12 HOURS ORAL 01/21/19 21:00 02/16/19 20:59 01/23/19 09:24 Jersey Chadwick MD Jan 23, 2019 12:43
--- NOTE | 2019-01-23 13:32 | Cardiac Electrophysiology PN ---
Assessment/Plan Assessment/Plan 1. Type 2 NSTEMI. No CP or SOB. EF normal but has severe pulmonary HTN ECG incomplete LBBB, LVH. On aspirin. Off Betablocker for Asthma on steroids 2. CHF due to diastolic dysfunction with BNP>1500. On Lasix 40 mg po daily 3. Hypertension. 4. COPD exacerbation on Abx 5. Anemia. 6. UTI 8. Osteoarthritis. 9. Cervical radiculopathy. CHRISTEL RN Subjective Subjective Comfortable in NAD. No events. Off tel enow Objective Last 24 Hour Vital Signs Date Time Temp Pulse Resp B/P (MAP) Pulse Ox O2 Delivery O2 Flow Rate FiO2 01/23/19 12:00 99.0 88 19 110/69 (83) 100 01/23/19 09:00 Nasal Cannula 4.0 Nasal Cannula 4.0 01/23/19 08:00 98.7 84 24 108/64 (79) 100 01/23/19 07:10 100 Nasal Cannula 2.0 28 01/23/19 07:10 Nasal Cannula 2.0 28 01/23/19 04:00 98.7 77 18 121/75 (90) 99 01/23/19 00:00 98.0 71 18 100/61 (74) 100 01/22/19 21:00 Trach Collar 4.0 Nasal Cannula 4.0 01/22/19 20:10 100 Nasal Cannula 2.0 28 01/22/19 20:10 Nasal Cannula 2.0 28 01/22/19 20:00 97.9 84 18 117/84 (95) 100 01/22/19 16:00 98.4 86 18 117/62 (80) 100 Intake and Output 01/22/19 01/23/19 19:00 07:00 Intake Total 1000 ml 200 ml Output Total 500 ml Balance 1000 ml -300 ml Intake Oral 1000 ml 100 ml IV Total 100 ml Output Urine Total 500 ml # Voids 4 Laboratory Tests Test 01/23/19 05:10 White Blood Count 7.8 K/UL (4.8-10.8) Red Blood Count 4.02 M/UL (4.20-5.40) L Hemoglobin 11.1 G/DL (12.0-16.0) L Hematocrit 35.5 % (37.0-47.0) L Mean Corpuscular Volume 88 FL (80-99) Mean Corpuscular Hemoglobin 27.5 PG (27.0-31.0) Mean Corpuscular Hemoglobin Concent 31.1 G/DL (32.0-36.0) L Red Cell Distribution Width 18.5 % (11.6-14.8) H Platelet Count 302 K/UL (150-450) Mean Platelet Volume 5.9 FL (6.5-10.1) L Neutrophils (%) (Auto) 62.5 % (45.0-75.0) Lymphocytes (%) (Auto) 23.0 % (20.0-45.0) Monocytes (%) (Auto) 7.8 % (1.0-10.0) Eosinophils (%) (Auto) 5.6 % (0.0-3.0) H Basophils (%) (Auto) 1.1 % (0.0-2.0) Sodium Level 140 MMOL/L (136-145) Potassium Level 3.8 MMOL/L (3.5-5.1) Chloride Level 103 MMOL/L (98-107) Carbon Dioxide Level 29 MMOL/L (21-32) Anion Gap 8 mmol/L (5-15) Blood Urea Nitrogen 29 mg/dL (7-18) H Creatinine 0.9 MG/DL (0.55-1.30) Estimat Glomerular Filtration Rate mL/min (>60) Glucose Level 74 MG/DL (74-106) Calcium Level 9.6 MG/DL (8.5-10.1) Objective HEENT: No JVD Respiratory/Chest: Rhonchi - bilaterally Cardiovascular/Chest: normal peripheral pulses, normal rate, regular rhythm Abdomen: normal bowel sounds, non tender, soft, no organomegaly Extremities: no edema Renzo Burgess MD Jan 23, 2019 13:32
--- NOTE | 2019-01-23 14:38 | General Progress Note ---
Assessment/Plan Problem List: (1) UTI (urinary tract infection) ICD Codes: N39.0 - Urinary tract infection, site not specified SNOMED: 80563710 (2) Anemia ICD Codes: D64.9 - Anemia, unspecified SNOMED: 023273352 (3) Arthritis ICD Codes: M19.90 - Unspecified osteoarthritis, unspecified site SNOMED: 6114723 (4) Hypertension ICD Codes: I10 - Essential (primary) hypertension SNOMED: 44551457 (5) COPD exacerbation ICD Codes: J44.1 - Chronic obstructive pulmonary disease with (acute) exacerbation SNOMED: 084065266, 585078016, 168556789 (6) CHF exacerbation ICD Codes: I50.9 - Heart failure, unspecified SNOMED: 84841925, 602356984, 653393774 (7) Cervical radiculopathy ICD Codes: M54.12 - Radiculopathy, cervical region SNOMED: 92148602 Status: unchanged Assessment/Plan o2 pulm tx abt pain control pt diet sx eval cbc bmp am dc plan snf Subjective Constitutional: Reports: weakness Respiratory: Reports: shortness of breath Allergies: Coded Allergies: PENICILLINS (Verified Allergy, Unknown, SWELLING EVERYWHERE, EVEN EYES PER PATIENT, 11/24/11) All Systems: reviewed and negative except above Subjective o2nc anxious Objective Last 24 Hour Vital Signs Date Time Temp Pulse Resp B/P (MAP) Pulse Ox O2 Delivery O2 Flow Rate FiO2 01/23/19 12:00 99.0 88 19 110/69 (83) 100 01/23/19 09:00 Nasal Cannula 4.0 Nasal Cannula 4.0 01/23/19 08:00 98.7 84 24 108/64 (79) 100 01/23/19 07:10 100 Nasal Cannula 2.0 28 01/23/19 07:10 Nasal Cannula 2.0 28 01/23/19 04:00 98.7 77 18 121/75 (90) 99 01/23/19 00:00 98.0 71 18 100/61 (74) 100 01/22/19 21:00 Trach Collar 4.0 Nasal Cannula 4.0 01/22/19 20:10 100 Nasal Cannula 2.0 28 01/22/19 20:10 Nasal Cannula 2.0 28 01/22/19 20:00 97.9 84 18 117/84 (95) 100 01/22/19 16:00 98.4 86 18 117/62 (80) 100 Intake and Output 01/22/19 01/23/19 19:00 07:00 Intake Total 1000 ml 200 ml Output Total 500 ml Balance 1000 ml -300 ml Intake Oral 1000 ml 100 ml IV Total 100 ml Output Urine Total 500 ml # Voids 4 Laboratory Tests 01/23/19 05:10: White Blood Count 7.8, Red Blood Count 4.02L, Hemoglobin 11.1L, Hematocrit 35.5L , Mean Corpuscular Volume 88, Mean Corpuscular Hemoglobin 27.5, Mean Corpuscular Hemoglobin Concent 31.1L, Red Cell Distribution Width 18.5H, Platelet Count 302, Mean Platelet Volume 5.9L, Neutrophils (%) (Auto) 62.5, Lymphocytes (%) (Auto) 23.0, Monocytes (%) (Auto) 7.8, Eosinophils (%) (Auto) 5.6H, Basophils (%) (Auto) 1.1, Sodium Level 140, Potassium Level 3.8, Chloride Level 103, Carbon Dioxide Level 29, Anion Gap 8, Blood Urea Nitrogen 29H, Creatinine 0.9, Estimat Glomerular Filtration Rate , Glucose Level 74, Calcium Level 9.6 Height (Feet): 5 Height (Inches): 6.00 Weight (Pounds): 112 General Appearance: lethargic EENT: normal ENT inspection Neck: normal alignment Cardiovascular: normal peripheral pulses, normal rate, regular rhythm Respiratory/Chest: chest wall non-tender, decreased breath sounds Abdomen: normal bowel sounds, non tender, soft Extremities: normal inspection Edema: no edema noted Arm (L), no edema noted Arm (R), no edema noted Leg (L), no edema noted Leg (R), no edema noted Pedal (L), no edema noted Pedal (R), no edema noted Generalized Neurologic: responsive, motor weakness Skin: normal pigmentation, warm/dry Rio Lema DO Jan 23, 2019 14:38
[2019-01-23] MEDS ORDERED: LORazepam Inj 2mg/ml 1ml IV PRN (15:15)
--- NOTE | 2019-01-23 15:19 | Infectious Diseases Prog Note ---
Assessment/Plan Assessment/Plan Abx: Ceftriaxone x1 01/17 Aztreonam 01/18- Assessment: Probable Aspiration PNA vs pneumonitis Pneumomediastinum-suspected to rupture R side paratracheal bleb -01/20 CXR: Increasing bilateral parenchymal opacities, likely reflecting increasing edema or infiltrate superimposed on pre-existing chronic opacities. Central mediastinal lucency, likely reflects pneumomediastinum described on recent chest CT -CTA chest: Negative for acute pulmonary embolus or other acute thoracic vascular pathology. Pneumomediastinum. Suspect due to a ruptured right-sided medial bleb. Evidence of extensive chronic pulmonary parenchymal interstitial disease, with areas of honeycombing and bronchiectasis. No definite acute pulmonary parenchymal process. Ectatic main and left main pulmonary arteries, suggestive of pulmonary arterial hypertension. Bullae and subpleural blebs, may be related to the interstitial fibrotic process or could represent COPD changes -CXR: Cardiomegaly. Bilateral extensive interstitial and airspace opacities, slightly increased from but similar in distribution to prior study of 2017. Suspect component of chronic interstitial fibrosis with superimposed acute edema or infiltrates -influenza sc neg Afebrile No leukocytosis AST elevation; improving -HIV ab sc neg -Hep C+ DM HTN MA CAD CHF cervical radiculopathy CVA asthma COPD /Emphysema sp Bilateral hip replacement retirement resident Plan: -Continue empiric IV Aztreonam #6/7 and add Azithromycin #4/5 atypical coverage -upon discharge can be transition to PO Levaquin -01/17 SP Ceftriaxone x1 -f/u cx -monitor CBC/CMP, temperatures -f/u legionella ag urine -aspiration precautions -f/u Hep C VL -CMP, CXR am Thank you for this consultation. Will continue to follow along with you. Discussed with RN. Subjective Allergies: Coded Allergies: PENICILLINS (Verified Allergy, Unknown, SWELLING EVERYWHERE, EVEN EYES PER PATIENT, 11/24/11) Subjective afebrile at 2l NC no leukocytosis AST improving Objective Vital Signs Last 24 Hour Vital Signs Date Time Temp Pulse Resp B/P (MAP) Pulse Ox O2 Delivery O2 Flow Rate FiO2 01/23/19 12:00 99.0 88 19 110/69 (83) 100 01/23/19 09:00 Nasal Cannula 4.0 Nasal Cannula 4.0 01/23/19 08:00 98.7 84 24 108/64 (79) 100 01/23/19 07:10 100 Nasal Cannula 2.0 28 01/23/19 07:10 Nasal Cannula 2.0 28 01/23/19 04:00 98.7 77 18 121/75 (90) 99 01/23/19 00:00 98.0 71 18 100/61 (74) 100 01/22/19 21:00 Trach Collar 4.0 Nasal Cannula 4.0 01/22/19 20:10 100 Nasal Cannula 2.0 28 01/22/19 20:10 Nasal Cannula 2.0 28 01/22/19 20:00 97.9 84 18 117/84 (95) 100 01/22/19 16:00 98.4 86 18 117/62 (80) 100 Height (Feet): 5 Height (Inches): 6.00 Weight (Pounds): 112 Objective GENERAL: Calm in bed, O2 NC, slight short of breath. Oriented x2, no acute distress. CARDIOVASCULAR: No murmurs. LUNGS: Poor air exchange. ABDOMEN: Bowel sounds distant. EXTREMITIES: No cyanosis, clubbing, or edema. NEUROLOGIC: The patient moves all extremities, slightly weak. Laboratory Tests Test 01/23/19 05:10 White Blood Count 7.8 K/UL (4.8-10.8) Red Blood Count 4.02 M/UL (4.20-5.40) L Hemoglobin 11.1 G/DL (12.0-16.0) L Hematocrit 35.5 % (37.0-47.0) L Mean Corpuscular Volume 88 FL (80-99) Mean Corpuscular Hemoglobin 27.5 PG (27.0-31.0) Mean Corpuscular Hemoglobin Concent 31.1 G/DL (32.0-36.0) L Red Cell Distribution Width 18.5 % (11.6-14.8) H Platelet Count 302 K/UL (150-450) Mean Platelet Volume 5.9 FL (6.5-10.1) L Neutrophils (%) (Auto) 62.5 % (45.0-75.0) Lymphocytes (%) (Auto) 23.0 % (20.0-45.0) Monocytes (%) (Auto) 7.8 % (1.0-10.0) Eosinophils (%) (Auto) 5.6 % (0.0-3.0) H Basophils (%) (Auto) 1.1 % (0.0-2.0) Sodium Level 140 MMOL/L (136-145) Potassium Level 3.8 MMOL/L (3.5-5.1) Chloride Level 103 MMOL/L (98-107) Carbon Dioxide Level 29 MMOL/L (21-32) Anion Gap 8 mmol/L (5-15) Blood Urea Nitrogen 29 mg/dL (7-18) H Creatinine 0.9 MG/DL (0.55-1.30) Estimat Glomerular Filtration Rate mL/min (>60) Glucose Level 74 MG/DL (74-106) Calcium Level 9.6 MG/DL (8.5-10.1) Current Medications Medications (Trade) Dose Ordered Sig/Charly Route PRN Reason Start Time Stop Time Status Last Admin Dose Admin Aspirin (Ecotrin) 81 mg DAILY ORAL 01/22/19 09:00 02/18/19 08:59 01/23/19 09:24 Azithromycin (Zithromax) 500 mg DAILY ORAL 01/22/19 09:00 01/28/19 08:59 01/23/19 09:24 Aztreonam 1 gm/ Sodium Chloride 50 ml @ 100 mls/hr Q8HR IVPB 01/21/19 22:00 01/25/19 11:59 01/23/19 14:08 Bisacodyl (Dulcolax) 10 mg BIDPRN PRN RECTAL Constipation 01/23/19 10:00 02/22/19 09:59 Dextrose (Dextrose 50%) 25 ml Q30M PRN IV Hypoglycemia 01/21/19 19:45 02/16/19 17:32 Dextrose (Dextrose 50%) 50 ml Q30M PRN IV Hypoglycemia 01/21/19 19:45 02/16/19 17:32 Docusate Sodium (Colace) 100 mg TWICE A DAY ORAL 01/23/19 10:00 02/22/19 09:59 01/23/19 10:33 Furosemide (Lasix) 40 mg DAILY ORAL 01/22/19 09:00 02/21/19 08:59 01/23/19 09:24 Heparin Sodium (Porcine) (Heparin 5000 units/ml) 5,000 units EVERY 12 HOURS SUBQ 01/21/19 21:00 02/16/19 20:59 01/23/19 09:26 Lidocaine (Xylocaine 1% MPF 5ml) 10 ml Q4H PRN HHN cough 01/21/19 19:13 02/18/19 19:12 Lorazepam (Ativan 2mg/ml 1ml) 0.5 mg Q4H PRN IV For Anxiety 01/23/19 15:15 01/28/19 19:12 Methadone HCl (Methadone HCl) 2.5 mg EVERY 12 HOURS ORAL 01/21/19 21:00 01/26/19 20:59 01/23/19 09:24 Nitroglycerin (Ntg) 0.4 mg Q5M X 3 DOSES PRN SL Prn Chest Pain 01/21/19 19:15 02/16/19 17:33 Ondansetron HCl (Zofran) 4 mg Q6H PRN IVP Nausea & Vomiting 01/21/19 19:13 02/16/19 19:12 Promethazine HCl/ Codeine (Phenergan with Codeine) 5 ml Q6H PRN ORAL cough 01/21/19 19:14 02/16/19 19:13 Quetiapine Fumarate (SEROquel) 25 mg Q12HR ORAL 01/21/19 21:00 02/17/19 20:59 01/23/19 09:24 Temazepam (Restoril) 15 mg HSPRN PRN ORAL Insomnia 01/23/19 21:00 01/28/19 20:59 Theophylline (Jimmy-Dur) 100 mg EVERY 12 HOURS ORAL 01/21/19 21:00 02/16/19 20:59 01/23/19 09:24 Katt Ken M.D. Jan 23, 2019 15:19
--- NOTE | 2019-01-23 15:22 | NUR ---
NURSE NOTES: Patient c/o SOB and Dr. Chadwick notified. ordered DUONEB UNIT DOSE Q4 PRN for SOB. Noted and carried out.
[2019-01-23] MEDS ORDERED: Albuterol/Ipratropium 3ml neb HHN PRN (15:45)
[2019-01-23 16:00] VITALS: BP 122/63
--- NOTE | 2019-01-23 19:20 | NUR ---
NURSE NOTES: Received report from HUSSEIN Vergara. Patient in bed, alert. Bed in low position, side rails up x2. Call within reach. Will continue to monitor.
--- NOTE | 2019-01-23 19:20 | NUR ---
HAND-OFF: Report given to HUSSEIN Mercer. Patient in stable condition.
--- NOTE | 2019-01-23 19:47 | NUR ---
CASE MANAGEMENT: REVIEW SI: CHF T 99.0 HR 88 RR 19 BP 110/69 SAT 100% NC/4L H/H 11.1/35.5 IS: LASIX PO QD AZITHROMYCIN PO QD ALBUTEROL HHN PRN MED/SURG STATUS DCP: PATIENT IS FROM [facility]
[2019-01-23 20:00] VITALS: BP 103/63
[2019-01-24] VITALS: BP 112/67
[2019-01-24 04:00] VITALS: BP 131/78
--- NOTE | 2019-01-24 04:30 | NUR ---
NURSE NOTES: Stool collected and sent to lab for occult blood
[2019-01-24 07:28] LABS: BASOPHILS % (AUTO) 1.3 % (0.0-2.0); HEMOGLOBIN 11.1 G/DL (12.0-16.0); LYMPHOCYTES % (AUTO) 14.3 % (20.0-45.0); MEAN CORPUSCULAR VOLUME 87 FL (80-99); MONOCYTES % (AUTO) 6.1 % (1.0-10.0); NEUTROPHILS % (AUTO) 74.2 % (45.0-75.0); PLATELET COUNT 301 K/UL (150-450); RED BLOOD COUNT 4.11 M/UL (4.20-5.40); RED CELL DISTRIBUTION WIDTH 18.2 % (11.6-14.8); WHITE BLOOD COUNT 8.3 K/UL (4.8-10.8)
--- NOTE | 2019-01-24 07:30 | NUR ---
HAND-OFF: Report given to HUSSEIN Sykes.
[2019-01-24 07:57] LABS: ALANINE AMINOTRANSFERASE 57 U/L (12-78); ALBUMIN 2.7 G/DL (3.4-5.0); ALBUMIN/GLOBULIN RATIO 0.4 (1.0-2.7); ALKALINE PHOSPHATASE 100 U/L (46-116); ANION GAP 9 mmol/L (5-15); ASPARTATE AMINO TRANSFERASE 75 U/L (15-37); BILIRUBIN,TOTAL 0.5 MG/DL (0.2-1.0); BLOOD UREA NITROGEN 20 mg/dL (7-18); CALCIUM 9.7 MG/DL (8.5-10.1); CARBON DIOXIDE 29 MMOL/L (21-32); CHLORIDE 102 MMOL/L (98-107); CREATININE 0.8 MG/DL (0.55-1.30); POTASSIUM 3.6 MMOL/L (3.5-5.1); SODIUM 139 MMOL/L (136-145)
[2019-01-24 08:00] VITALS: BP 136/86
[2019-01-24] MEDS: Aztreonam Inj 1 GM in NS 50 ML IVPB SCH ×3 (08:11→22:52)
[2019-01-24] MEDS: Docusate 100mg cap ORAL SCH ×2 (08:18→17:12)
[2019-01-24] MEDS: Furosemide 40mg tab ORAL SCH (08:19)
[2019-01-24] MEDS: Theophylline ER 100mg ORAL SCH ×2 (08:19→21:09)
[2019-01-24] MEDS: Aspirin EC 81mg tab ORAL SCH (08:19)
[2019-01-24] MEDS: Azithromycin 250mg tab ORAL SCH (08:19)
[2019-01-24] MEDS: Heparin 5000 units/ml inj SUBQ SCH ×2 (08:20→21:12)
--- NOTE | 2019-01-24 08:59 | NUR ---
RADIOLOGY DEPT., CHEST X-RAY DONE.-P.DYE
--- NOTE | 2019-01-24 10:28 | NUR ---
NURSE NOTES: pt still c/o constipation. didn't eat her breakfast. called dr. christianson informed him of pt's condition and received new order. will follow up
[2019-01-24] MEDS ORDERED: Mineral Oil 30ml ud ORAL SCH (10:30)
--- NOTE | 2019-01-24 11:00 | NUR ---
PT NOTE: PT interventions held this am by primary nurse. PT will check on pt tomorrow.
--- NOTE | 2019-01-24 11:01 | GI Initial Consult Note ---
History of Present Illness General Date patient seen: Jan 24, 2019 Time patient seen: 10:55 Reason for Hospitalization: Dyspnea/Respdistress Referring physician: VIDYA BENDER Reason for Consultation: constipation Present Illness HPI This patient is brought in by EMS. She complains of shortness of breath. She does have a history of COPD. She has had intermittent cough. She denies chest pain. There is no fever or chills. There is no nausea or vomiting. There are no other complaints. GI consulted for severe constipation. ROS limited, patient seen awake alert no apparent distress with no active signs and symptoms of nausea vomiting. According to the RN report, patient had a recent KUB which noted to have a massive amounts of colonic stool. Labs reviewed; hemoglobin of 11.1, AST elevation at 75, elevated troponin levels, stool occult blood negative, hepatitis C positive. Unknown history of endoscopic or colonoscopy at this time. Home Meds Reported Medications Amino Acids/Protein Hydrolys (PRO-STAT LIQUID) 30 Ml Liquid.pkt, 30 ML ORAL TWICE A DAY, ML 01/17/19 Nitroglycerin (NITROSTAT) 0.4 Mg Tab.subl, 0.4 MG SL Q5M X3 DOSES PRN for CHEST PAIN, TAB 01/17/19 Magnesium Hydroxide* (MILK OF MAGNESIA*) 2,400 Mg/10 Ml Oral.susp, 30 ML ORAL DAILY PRN for Constipation, ML 01/17/19 Megestrol Acetate (MEGESTROL ACETATE) 400 Mg/10 Ml Oral.susp, 400 MG PO BID, ML for appetite loss for 90 days (end date: 03/29/2019) 01/17/19 Mag Hydrox/Al Hydrox/Simeth* (ADVANCED ANTACID LIQUID*) 355 Ml Oral.susp, 30 ML ORAL FOUR TIMES A DAY PRN for indigestion, ML 01/17/19 Ipratropium/Albuterol Sulfate (DuoNeb 0.5-3(2.5)mg/3ml) 3 Ml Ampul.neb, 3 ML HHN Q6HR PRN for Shortness of Breath, EA 01/17/19 Ondansetron* (ZOFRAN*) 4 Mg Tablet, 4 MG ORAL Q6H PRN for Nausea & Vomiting, TAB 01/17/19 Furosemide* (LASIX*) 40 Mg Tablet, 40 MG ORAL DAILY, TAB 01/17/19 Metoprolol Tartrate* (METOPROLOL TARTRATE*) 25 Mg Tablet, 12.5 MG ORAL EVERY 12 HOURS, TAB 01/17/19 Acetaminophen* (ACETAMINOPHEN 325MG TABLET*) 325 Mg Tablet, 650 MG ORAL Q4H PRN for Moderate Pain (Pain Scale 4-6), TAB 01/17/19 Acetaminophen* (ACETAMINOPHEN 325MG TABLET*) 325 Mg Tablet, 325 MG ORAL Q4H PRN for Mild Pain (Pain Scale 1-3), TAB 01/17/19 Tramadol Hcl* (ULTRAM*) 50 Mg Tablet, 50 MG ORAL Q6H PRN for Severe Pain (Pain Scale 7-10), TAB 01/17/19 Sennosides (SENNA) 8.6 Mg Tablet, 2 TAB PO BID, TAB 01/17/19 Polyethylene Glycol 3350* (MIRALAX*) 17 Gm Powd.pack, 17 GM ORAL DAILY PRN for Constipation, PACKET 01/17/19 Atorvastatin Calcium* (LIPITOR*) 80 Mg Tablet, 80 MG ORAL BEDTIME, TAB 01/17/19 Fish Oil (Fish Oil 1,000 mg Capsule) 1 Each Capsule, 1000 MG ORAL DAILY, CAP 01/17/19 Ferrous Sulfate* (FERROUS SULFATE*) 325 Mg Tablet, 325 MG ORAL DAILY, TAB 01/17/19 Docusate Sodium* (COLACE*) 100 Mg Capsule, 100 MG ORAL TWICE A DAY, CAP 01/17/19 Aspirin* (ASPIR 81*) 81 Mg Tablet.dr, 81 MG ORAL DAILY for for prophylaxis 07/28/18 Discontinued Reported Medications Acetaminophen* (ACETAMINOPHEN*) 160 Mg/5 Ml Solution, 650 MG ORAL Q6H PRN for Mild Pain/Temp > 100.5, ML 01/17/19 Ondansetron Odt* (ZOFRAN ODT*) 8 Mg Tab.rapdis, 4 MG ORAL Q6H PRN for Nausea & Vomiting, #30 TAB 01/17/19 Furosemide* (LASIX*) 20 Mg Tablet, ORAL DAILY 07/28/18 Metoprolol Succinate* (METOPROLOL SUCCINATE*) 25 Mg Tab.er.24h, ORAL DAILY 04/09/17 Med list reviewed/reconciled: Yes Allergies: Coded Allergies: PENICILLINS (Verified Allergy, Unknown, SWELLING EVERYWHERE, EVEN EYES PER PATIENT, 11/24/11) Patient History Limited by: medical condition History Provided By: Patient, Medical Record PMH Narrative Past Medical History: see triage record, DM, HTN, [place], CAD, CHF, asthma, COPD Past Surgical History: other - Bilateral hip replacement Social History: Denies: smoking, alcohol use, drug use Reviewed Nursing Documentation: PMH: Agreed; PSxH: Agreed Nursing Documentation-PM Past Medical History: No History, Except For Hx Hypertension: Yes Hx Asthma: Yes Hx COPD: Yes Hx Cerebrovascular Accident: Yes Social History: Denies: smoking, alcohol use, drug use, other Review of Systems All Other Systems: limited Physical Exam Vital Signs Date Time Temp Pulse Resp B/P (MAP) Pulse Ox O2 Delivery O2 Flow Rate FiO2 01/20/19 08:00 97.9 77 18 118/74 (89) 100 01/20/19 08:54 Nasal Cannula 2.0 28 Sp02 EP Interpretation: reviewed, normal Labs Laboratory Tests Test 01/24/19 04:10 01/24/19 07:05 Stool Occult Blood Negative (NEGATIVE) White Blood Count 8.3 K/UL (4.8-10.8) Red Blood Count 4.11 M/UL (4.20-5.40) L Hemoglobin 11.1 G/DL (12.0-16.0) L Hematocrit 36.0 % (37.0-47.0) L Mean Corpuscular Volume 87 FL (80-99) Mean Corpuscular Hemoglobin 26.9 PG (27.0-31.0) L Mean Corpuscular Hemoglobin Concent 30.8 G/DL (32.0-36.0) L Red Cell Distribution Width 18.2 % (11.6-14.8) H Platelet Count 301 K/UL (150-450) Mean Platelet Volume 6.8 FL (6.5-10.1) Neutrophils (%) (Auto) 74.2 % (45.0-75.0) Lymphocytes (%) (Auto) 14.3 % (20.0-45.0) L Monocytes (%) (Auto) 6.1 % (1.0-10.0) Eosinophils (%) (Auto) 4.0 % (0.0-3.0) H Basophils (%) (Auto) 1.3 % (0.0-2.0) Sodium Level 139 MMOL/L (136-145) Potassium Level 3.6 MMOL/L (3.5-5.1) Chloride Level 102 MMOL/L (98-107) Carbon Dioxide Level 29 MMOL/L (21-32) Anion Gap 9 mmol/L (5-15) Blood Urea Nitrogen 20 mg/dL (7-18) H Creatinine 0.8 MG/DL (0.55-1.30) Estimat Glomerular Filtration Rate mL/min (>60) Glucose Level 99 MG/DL (74-106) Calcium Level 9.7 MG/DL (8.5-10.1) Total Bilirubin 0.5 MG/DL (0.2-1.0) Aspartate Amino Transf (AST/SGOT) 75 U/L (15-37) H Alanine Aminotransferase (ALT/SGPT) 57 U/L (12-78) Alkaline Phosphatase 100 U/L (46-116) Pro-B-Type Natriuretic Peptide 808 pg/mL (0-125) H Total Protein 8.9 G/DL (6.4-8.2) H Albumin 2.7 G/DL (3.4-5.0) L Globulin 6.2 g/dL Albumin/Globulin Ratio 0.4 (1.0-2.7) L General Appearance: well appearing, no apparent distress, alert, thin Head: normocephalic EENT: PERRL/EOMI, normal ENT inspection Neck: supple Respiratory: normal breath sounds, no respiratory distress Cardiovascular: normal rate Gastrointestinal: normal inspection, non tender, soft, normal bowel sounds, non -distended Rectal: deferred Genitourinary: no CVA tenderness Musculoskeletal: normal inspection, back normal Neurologic: alert, responsive Psychiatric: normal inspection Skin: normal inspection, normal color, no rash, warm/dry, palpation normal, well hydrated Lymphatic: normal inspection, no adenopathy Current Medications Current Medications Medications (Trade) Dose Ordered Sig/Charly Route PRN Reason Start Time Stop Time Status Last Admin Dose Admin Albuterol/ Ipratropium (Albuterol/ Ipratropium) 3 ml Q4H PRN HHN Shortness of Breath 01/23/19 15:45 01/28/19 15:44 Aspirin (Ecotrin) 81 mg DAILY ORAL 01/22/19 09:00 02/18/19 08:59 01/24/19 08:19 Azithromycin (Zithromax) 500 mg DAILY ORAL 01/22/19 09:00 01/28/19 08:59 01/24/19 08:19 Aztreonam 1 gm/ Sodium Chloride 50 ml @ 100 mls/hr Q8HR IVPB 01/21/19 22:00 01/25/19 11:59 01/24/19 08:11 Bisacodyl (Dulcolax) 10 mg BIDPRN PRN RECTAL Constipation 01/23/19 10:00 02/22/19 09:59 01/24/19 03:55 Dextrose (Dextrose 50%) 25 ml Q30M PRN IV Hypoglycemia 01/21/19 19:45 02/16/19 17:32 Dextrose (Dextrose 50%) 50 ml Q30M PRN IV Hypoglycemia 01/21/19 19:45 02/16/19 17:32 Docusate Sodium (Colace) 100 mg TWICE A DAY ORAL 01/23/19 10:00 02/22/19 09:59 01/24/19 08:18 Furosemide (Lasix) 40 mg DAILY ORAL 01/22/19 09:00 02/21/19 08:59 01/24/19 08:19 Heparin Sodium (Porcine) (Heparin 5000 units/ml) 5,000 units EVERY 12 HOURS SUBQ 01/21/19 21:00 02/16/19 20:59 01/24/19 08:20 Lidocaine (Xylocaine 1% MPF 5ml) 10 ml Q4H PRN HHN cough 01/21/19 19:13 02/18/19 19:12 Lorazepam (Ativan 2mg/ml 1ml) 0.5 mg Q4H PRN IV For Anxiety 01/23/19 15:15 01/28/19 19:12 01/24/19 03:56 Methadone HCl (Methadone HCl) 2.5 mg EVERY 12 HOURS ORAL 01/21/19 21:00 01/26/19 20:59 01/24/19 08:19 Mineral Oil (Fleet's Mineral Oil Enema) 133 ml DAILYPRN PRN RECTAL Constipation 01/24/19 09:30 02/23/19 09:29 Mineral Oil (Mineral Oil) 30 ml ONCE ORAL 01/24/19 10:30 01/24/19 11:30 01/24/19 10:49 Nitroglycerin (Ntg) 0.4 mg Q5M X 3 DOSES PRN SL Prn Chest Pain 01/21/19 19:15 02/16/19 17:33 Ondansetron HCl (Zofran) 4 mg Q6H PRN IVP Nausea & Vomiting 01/21/19 19:13 02/16/19 19:12 Promethazine HCl/ Codeine (Phenergan with Codeine) 5 ml Q6H PRN ORAL cough 01/21/19 19:14 02/16/19 19:13 Quetiapine Fumarate (SEROquel) 25 mg Q12HR ORAL 01/21/19 21:00 02/17/19 20:59 01/24/19 08:19 Temazepam (Restoril) 15 mg HSPRN PRN ORAL Insomnia 01/23/19 21:00 01/28/19 20:59 Theophylline (Jimmy-Dur) 100 mg EVERY 12 HOURS ORAL 01/21/19 21:00 02/16/19 20:59 01/24/19 08:19 GI: Plan Problems: (1) Constipation (2) Anemia (3) Elevated troponin (4) Protein-calorie malnutrition, severe Plan Pending final KUB report Hepatitis C positive, pending Hep C TMA Patient is on a regular diet Mineral oil p.o. x1 Fleets enema x1 Bowel regimen >> patient is already on Colace, will add MiraLAX nightly Dulcolax as needed for severe constipation Outpatient GI procedures IV and p.o. hydration plus electrolyte correction Follow labs Discussed with Dr. Mustafa. Thank you for this patient referral, we will follow. The patient was seen and examined at bedside and all new and available data was reviewed in the patients chart. I agree with the above findings, impression and plan. (Patient seen earlier today. Signature stamp does not reflect patient encounter time.). - MD Joy Horner,[facility] [employer] Jan 24, 2019 11:01
--- NOTE | 2019-01-24 11:21 | Pulmonology Progress Note ---
Assessment/Plan Problems: (1) Acute respiratory failure (2) COPD exacerbation (3) Pulmonary hypertension (4) Pulmonary fibrosis (5) Elevated troponin (6) Protein-calorie malnutrition, severe (7) Hypertension Assessment/Plan constipated, got enema feeling better cxr better, 01/24 continue abx until sputum is available CT chest reviewed, pt has extensive fibrosis and chronic changes Echo reviewed, Grade one diastolic dysfunction trial of lidocaine inhalers and chronic Methadone to suppress dyspnea. f/u cardiology recommendations Poor overall prognosis. med/surgery Subjective ROS Limited/Unobtainable: No Constitutional: Reports: no symptoms HEENT: Repors: no symptoms Respiratory: Reports: no symptoms Allergies: Coded Allergies: PENICILLINS (Verified Allergy, Unknown, SWELLING EVERYWHERE, EVEN EYES PER PATIENT, 11/24/11) Objective Last 24 Hour Vital Signs Date Time Temp Pulse Resp B/P (MAP) Pulse Ox O2 Delivery O2 Flow Rate FiO2 01/24/19 09:00 Nasal Cannula 2.0 Nasal Cannula 2.0 01/24/19 08:10 100 Nasal Cannula 4.0 36 01/24/19 08:10 Nasal Cannula 4.0 36 01/24/19 08:00 98.9 100 20 136/86 (103) 97 01/24/19 04:00 98.1 89 20 131/78 (95) 96 01/24/19 00:00 98.4 95 20 112/67 (82) 99 01/23/19 21:00 Nasal Cannula 2.0 Nasal Cannula 2.0 01/23/19 20:00 98.3 89 20 103/63 (76) 100 01/23/19 19:45 Nasal Cannula 4.0 36 01/23/19 19:45 98 Nasal Cannula 4.0 36 01/23/19 16:00 98.1 78 20 122/63 (82) 95 01/23/19 12:00 99.0 88 19 110/69 (83) 100 Intake and Output 01/23/19 01/24/19 19:00 07:00 Intake Total 400 ml Output Total 500 ml Balance -100 ml Intake Oral 400 ml Output Urine Total 500 ml # Voids 2 2 Objective General Appearance: cachetic HEENT: normocephalic, atraumatic Respiratory/Chest: chest wall non-tender, normal breath sounds Cardiovascular: normal peripheral pulses, regular rhythm Abdomen: normal bowel sounds, soft, non tender Laboratory Tests 01/24/19 04:10: Stool Occult Blood Negative 01/24/19 07:05: White Blood Count 8.3, Red Blood Count 4.11L, Hemoglobin 11.1L, Hematocrit 36.0L , Mean Corpuscular Volume 87, Mean Corpuscular Hemoglobin 26.9L, Mean Corpuscular Hemoglobin Concent 30.8L, Red Cell Distribution Width 18.2H, Platelet Count 301, Mean Platelet Volume 6.8, Neutrophils (%) (Auto) 74.2, Lymphocytes (%) (Auto) 14.3L, Monocytes (%) (Auto) 6.1, Eosinophils (%) (Auto) 4.0H, Basophils (%) (Auto) 1.3, Sodium Level 139, Potassium Level 3.6, Chloride Level 102, Carbon Dioxide Level 29, Anion Gap 9, Blood Urea Nitrogen 20H, Creatinine 0.8, Estimat Glomerular Filtration Rate , Glucose Level 99, Calcium Level 9.7, Total Bilirubin 0.5, Aspartate Amino Transf (AST/SGOT) 75H, Alanine Aminotransferase (ALT/SGPT) 57, Alkaline Phosphatase 100, Pro-B-Type Natriuretic Peptide 808H, Total Protein 8.9H, Albumin 2.7L, Globulin 6.2, Albumin/Globulin Ratio 0.4L Current Medications Medications (Trade) Dose Ordered Sig/Charly Route PRN Reason Start Time Stop Time Status Last Admin Dose Admin Albuterol/ Ipratropium (Albuterol/ Ipratropium) 3 ml Q4H PRN HHN Shortness of Breath 01/23/19 15:45 01/28/19 15:44 Aspirin (Ecotrin) 81 mg DAILY ORAL 01/22/19 09:00 02/18/19 08:59 01/24/19 08:19 Azithromycin (Zithromax) 500 mg DAILY ORAL 01/22/19 09:00 01/28/19 08:59 01/24/19 08:19 Aztreonam 1 gm/ Sodium Chloride 50 ml @ 100 mls/hr Q8HR IVPB 01/21/19 22:00 01/25/19 11:59 01/24/19 08:11 Bisacodyl (Dulcolax) 10 mg BIDPRN PRN RECTAL Constipation 01/23/19 10:00 02/22/19 09:59 01/24/19 03:55 Dextrose (Dextrose 50%) 25 ml Q30M PRN IV Hypoglycemia 01/21/19 19:45 02/16/19 17:32 Dextrose (Dextrose 50%) 50 ml Q30M PRN IV Hypoglycemia 01/21/19 19:45 02/16/19 17:32 Docusate Sodium (Colace) 100 mg TWICE A DAY ORAL 01/23/19 10:00 02/22/19 09:59 01/24/19 08:18 Furosemide (Lasix) 40 mg DAILY ORAL 01/22/19 09:00 02/21/19 08:59 01/24/19 08:19 Heparin Sodium (Porcine) (Heparin 5000 units/ml) 5,000 units EVERY 12 HOURS SUBQ 01/21/19 21:00 02/16/19 20:59 01/24/19 08:20 Lidocaine (Xylocaine 1% MPF 5ml) 10 ml Q4H PRN HHN cough 01/21/19 19:13 02/18/19 19:12 Lorazepam (Ativan 2mg/ml 1ml) 0.5 mg Q4H PRN IV For Anxiety 01/23/19 15:15 01/28/19 19:12 01/24/19 03:56 Methadone HCl (Methadone HCl) 2.5 mg EVERY 12 HOURS ORAL 01/21/19 21:00 01/26/19 20:59 01/24/19 08:19 Mineral Oil (Fleet's Mineral Oil Enema) 133 ml DAILYPRN PRN RECTAL Constipation 01/24/19 09:30 02/23/19 09:29 Mineral Oil (Mineral Oil) 30 ml ONCE ORAL 01/24/19 10:30 01/24/19 11:30 01/24/19 10:49 Nitroglycerin (Ntg) 0.4 mg Q5M X 3 DOSES PRN SL Prn Chest Pain 01/21/19 19:15 02/16/19 17:33 Ondansetron HCl (Zofran) 4 mg Q6H PRN IVP Nausea & Vomiting 01/21/19 19:13 02/16/19 19:12 Polyethylene Glycol (Miralax) 17 gm BEDTIME ORAL 01/24/19 21:00 02/23/19 20:59 Promethazine HCl/ Codeine (Phenergan with Codeine) 5 ml Q6H PRN ORAL cough 01/21/19 19:14 02/16/19 19:13 Quetiapine Fumarate (SEROquel) 25 mg Q12HR ORAL 01/21/19 21:00 02/17/19 20:59 01/24/19 08:19 Temazepam (Restoril) 15 mg HSPRN PRN ORAL Insomnia 01/23/19 21:00 01/28/19 20:59 Theophylline (Jimmy-Dur) 100 mg EVERY 12 HOURS ORAL 01/21/19 21:00 02/16/19 20:59 01/24/19 08:19 Jersey Chadwick MD Jan 24, 2019 11:21
[2019-01-24] MEDS ORDERED: THEOPHYLLINE A100 MG ORAL (11:22)
[2019-01-24] MEDS ORDERED: METHADONE HCL5 MG ORAL (11:22)
[2019-01-24 12:00] VITALS: BP 142/93
--- NOTE | 2019-01-24 12:16 | Infectious Diseases Prog Note ---
Assessment/Plan Assessment/Plan Abx: Ceftriaxone x1 01/17 Aztreonam 01/18- Assessment: Probable Aspiration PNA vs pneumonitis -sp cx PsA (sensi pending) Pneumomediastinum-suspected to rupture R side paratracheal bleb -01/20 CXR: Increasing bilateral parenchymal opacities, likely reflecting increasing edema or infiltrate superimposed on pre-existing chronic opacities. Central mediastinal lucency, likely reflects pneumomediastinum described on recent chest CT -CTA chest: Negative for acute pulmonary embolus or other acute thoracic vascular pathology. Pneumomediastinum. Suspect due to a ruptured right-sided medial bleb. Evidence of extensive chronic pulmonary parenchymal interstitial disease, with areas of honeycombing and bronchiectasis. No definite acute pulmonary parenchymal process. Ectatic main and left main pulmonary arteries, suggestive of pulmonary arterial hypertension. Bullae and subpleural blebs, may be related to the interstitial fibrotic process or could represent COPD changes -CXR: Cardiomegaly. Bilateral extensive interstitial and airspace opacities, slightly increased from but similar in distribution to prior study of 2017. Suspect component of chronic interstitial fibrosis with superimposed acute edema or infiltrates -influenza sc neg Afebrile No leukocytosis AST elevation; improving -HIV ab sc neg -Hep C+ DM HTN ME CAD CHF cervical radiculopathy CVA asthma COPD /Emphysema sp Bilateral hip replacement skilled nursing resident Plan: -Continue empiric IV Aztreonam #7/7 and add Azithromycin #5/5 atypical coverage -upon discharge can be transition to PO Levaquin x 1 more day -01/17 SP Ceftriaxone x1 -f/u cx -monitor CBC/CMP, temperatures -f/u legionella ag urine -aspiration precautions -f/u Hep C VL -f/u CXR am Thank you for this consultation. Will continue to follow along with you. Discussed with RN. Subjective Allergies: Coded Allergies: PENICILLINS (Verified Allergy, Unknown, SWELLING EVERYWHERE, EVEN EYES PER PATIENT, 11/24/11) Subjective afebrile at 2l NC no leukocytosis AST improving Objective Vital Signs Last 24 Hour Vital Signs Date Time Temp Pulse Resp B/P (MAP) Pulse Ox O2 Delivery O2 Flow Rate FiO2 01/24/19 09:00 Nasal Cannula 2.0 Nasal Cannula 2.0 01/24/19 08:10 100 Nasal Cannula 4.0 36 01/24/19 08:10 Nasal Cannula 4.0 36 01/24/19 08:00 98.9 100 20 136/86 (103) 97 01/24/19 04:00 98.1 89 20 131/78 (95) 96 01/24/19 00:00 98.4 95 20 112/67 (82) 99 01/23/19 21:00 Nasal Cannula 2.0 Nasal Cannula 2.0 01/23/19 20:00 98.3 89 20 103/63 (76) 100 01/23/19 19:45 Nasal Cannula 4.0 36 01/23/19 19:45 98 Nasal Cannula 4.0 36 01/23/19 16:00 98.1 78 20 122/63 (82) 95 Height (Feet): 5 Height (Inches): 6.00 Weight (Pounds): 110 Objective GENERAL: Calm in bed, O2 NC, slight short of breath. Oriented x2, no acute distress. CARDIOVASCULAR: No murmurs. LUNGS: Poor air exchange. ABDOMEN: Bowel sounds distant. EXTREMITIES: No cyanosis, clubbing, or edema. NEUROLOGIC: The patient moves all extremities, slightly weak. Laboratory Tests Test 01/24/19 04:10 01/24/19 07:05 Stool Occult Blood Negative (NEGATIVE) White Blood Count 8.3 K/UL (4.8-10.8) Red Blood Count 4.11 M/UL (4.20-5.40) L Hemoglobin 11.1 G/DL (12.0-16.0) L Hematocrit 36.0 % (37.0-47.0) L Mean Corpuscular Volume 87 FL (80-99) Mean Corpuscular Hemoglobin 26.9 PG (27.0-31.0) L Mean Corpuscular Hemoglobin Concent 30.8 G/DL (32.0-36.0) L Red Cell Distribution Width 18.2 % (11.6-14.8) H Platelet Count 301 K/UL (150-450) Mean Platelet Volume 6.8 FL (6.5-10.1) Neutrophils (%) (Auto) 74.2 % (45.0-75.0) Lymphocytes (%) (Auto) 14.3 % (20.0-45.0) L Monocytes (%) (Auto) 6.1 % (1.0-10.0) Eosinophils (%) (Auto) 4.0 % (0.0-3.0) H Basophils (%) (Auto) 1.3 % (0.0-2.0) Sodium Level 139 MMOL/L (136-145) Potassium Level 3.6 MMOL/L (3.5-5.1) Chloride Level 102 MMOL/L (98-107) Carbon Dioxide Level 29 MMOL/L (21-32) Anion Gap 9 mmol/L (5-15) Blood Urea Nitrogen 20 mg/dL (7-18) H Creatinine 0.8 MG/DL (0.55-1.30) Estimat Glomerular Filtration Rate mL/min (>60) Glucose Level 99 MG/DL (74-106) Calcium Level 9.7 MG/DL (8.5-10.1) Total Bilirubin 0.5 MG/DL (0.2-1.0) Aspartate Amino Transf (AST/SGOT) 75 U/L (15-37) H Alanine Aminotransferase (ALT/SGPT) 57 U/L (12-78) Alkaline Phosphatase 100 U/L (46-116) Pro-B-Type Natriuretic Peptide 808 pg/mL (0-125) H Total Protein 8.9 G/DL (6.4-8.2) H Albumin 2.7 G/DL (3.4-5.0) L Globulin 6.2 g/dL Albumin/Globulin Ratio 0.4 (1.0-2.7) L Current Medications Medications (Trade) Dose Ordered Sig/Charly Route PRN Reason Start Time Stop Time Status Last Admin Dose Admin Albuterol/ Ipratropium (Albuterol/ Ipratropium) 3 ml Q4H PRN HHN Shortness of Breath 01/23/19 15:45 01/28/19 15:44 Aspirin (Ecotrin) 81 mg DAILY ORAL 01/22/19 09:00 02/18/19 08:59 01/24/19 08:19 Azithromycin (Zithromax) 500 mg DAILY ORAL 01/22/19 09:00 01/28/19 08:59 01/24/19 08:19 Aztreonam 1 gm/ Sodium Chloride 50 ml @ 100 mls/hr Q8HR IVPB 01/21/19 22:00 01/25/19 11:59 01/24/19 08:11 Bisacodyl (Dulcolax) 10 mg BIDPRN PRN RECTAL Constipation 01/23/19 10:00 02/22/19 09:59 01/24/19 03:55 Dextrose (Dextrose 50%) 25 ml Q30M PRN IV Hypoglycemia 01/21/19 19:45 02/16/19 17:32 Dextrose (Dextrose 50%) 50 ml Q30M PRN IV Hypoglycemia 01/21/19 19:45 02/16/19 17:32 Docusate Sodium (Colace) 100 mg TWICE A DAY ORAL 01/23/19 10:00 02/22/19 09:59 01/24/19 08:18 Furosemide (Lasix) 40 mg DAILY ORAL 01/22/19 09:00 02/21/19 08:59 01/24/19 08:19 Heparin Sodium (Porcine) (Heparin 5000 units/ml) 5,000 units EVERY 12 HOURS SUBQ 01/21/19 21:00 02/16/19 20:59 01/24/19 08:20 Lidocaine (Xylocaine 1% MPF 5ml) 10 ml Q4H PRN HHN cough 01/21/19 19:13 02/18/19 19:12 Lorazepam (Ativan 2mg/ml 1ml) 0.5 mg Q4H PRN IV For Anxiety 01/23/19 15:15 01/28/19 19:12 01/24/19 03:56 Methadone HCl (Methadone HCl) 2.5 mg EVERY 12 HOURS ORAL 01/21/19 21:00 01/26/19 20:59 01/24/19 08:19 Mineral Oil (Fleet's Mineral Oil Enema) 133 ml DAILYPRN PRN RECTAL Constipation 01/24/19 09:30 02/23/19 09:29 Nitroglycerin (Ntg) 0.4 mg Q5M X 3 DOSES PRN SL Prn Chest Pain 01/21/19 19:15 02/16/19 17:33 Ondansetron HCl (Zofran) 4 mg Q6H PRN IVP Nausea & Vomiting 01/21/19 19:13 02/16/19 19:12 Polyethylene Glycol (Miralax) 17 gm BEDTIME ORAL 01/24/19 21:00 02/23/19 20:59 Promethazine HCl/ Codeine (Phenergan with Codeine) 5 ml Q6H PRN ORAL cough 01/21/19 19:14 02/16/19 19:13 Quetiapine Fumarate (SEROquel) 25 mg Q12HR ORAL 01/21/19 21:00 02/17/19 20:59 01/24/19 08:19 Temazepam (Restoril) 15 mg HSPRN PRN ORAL Insomnia 01/23/19 21:00 01/28/19 20:59 Theophylline (Jimmy-Dur) 100 mg EVERY 12 HOURS ORAL 01/21/19 21:00 02/16/19 20:59 01/24/19 08:19 Katt Ken M.D. Jan 24, 2019 12:16
--- NOTE | 2019-01-24 12:38 | NUR ---
*-* INSURANCE *-* ALL CLINICALS,REVIEWS HAVE BEEN FAXED TO: [employer] PLEASE FAX THE REVIEW /CLINICAL NCM: COLETTE P- [phone] X [facility] F- [phone]....
--- NOTE | 2019-01-24 12:47 | Diagnostic Imaging Report ---
Indication: Dyspnea Comparison: 01/19/2019 A single view chest radiograph was obtained. Findings: Patchy infiltrates noted bilaterally. Reticular densities also demonstrated and relatively unchanged. Heart size is enlarged and stable. Bones are osteopenic. Small air noted in the right paratracheal part of the superior mediastinum. IMPRESSION: Suspected interstitial disease. This may be chronic due to fibrosis. Pneumomediastinum. Cardiomegaly No significant change
--- NOTE | 2019-01-24 14:27 | General Progress Note ---
Assessment/Plan Problem List: (1) UTI (urinary tract infection) ICD Codes: N39.0 - Urinary tract infection, site not specified SNOMED: 17954842 (2) Anemia ICD Codes: D64.9 - Anemia, unspecified SNOMED: 878278351 (3) Arthritis ICD Codes: M19.90 - Unspecified osteoarthritis, unspecified site SNOMED: 8538740 (4) Hypertension ICD Codes: I10 - Essential (primary) hypertension SNOMED: 63002349 (5) COPD exacerbation ICD Codes: J44.1 - Chronic obstructive pulmonary disease with (acute) exacerbation SNOMED: 522917316, 746702812, 460997504 (6) CHF exacerbation ICD Codes: I50.9 - Heart failure, unspecified SNOMED: 75676686, 760822564, 077924477 (7) Cervical radiculopathy ICD Codes: M54.12 - Radiculopathy, cervical region SNOMED: 32514968 Status: stable, progressing Assessment/Plan o2 pulm tx abt pain control pt diet sx eval cbc bmp am dc plan snf Subjective Constitutional: Reports: weakness Respiratory: Reports: shortness of breath Allergies: Coded Allergies: PENICILLINS (Verified Allergy, Unknown, SWELLING EVERYWHERE, EVEN EYES PER PATIENT, 11/24/11) All Systems: reviewed and negative except above Subjective o2nc sleepy in bed Objective Last 24 Hour Vital Signs Date Time Temp Pulse Resp B/P (MAP) Pulse Ox O2 Delivery O2 Flow Rate FiO2 01/24/19 09:00 Nasal Cannula 2.0 Nasal Cannula 2.0 01/24/19 08:10 100 Nasal Cannula 4.0 36 01/24/19 08:10 Nasal Cannula 4.0 36 01/24/19 08:00 98.9 100 20 136/86 (103) 97 01/24/19 04:00 98.1 89 20 131/78 (95) 96 01/24/19 00:00 98.4 95 20 112/67 (82) 99 01/23/19 21:00 Nasal Cannula 2.0 Nasal Cannula 2.0 01/23/19 20:00 98.3 89 20 103/63 (76) 100 01/23/19 19:45 Nasal Cannula 4.0 36 01/23/19 19:45 98 Nasal Cannula 4.0 36 01/23/19 16:00 98.1 78 20 122/63 (82) 95 Intake and Output 01/23/19 01/24/19 19:00 07:00 Intake Total 400 ml Output Total 500 ml Balance -100 ml Intake Oral 400 ml Output Urine Total 500 ml # Voids 2 2 Laboratory Tests 01/24/19 04:10: Stool Occult Blood Negative 01/24/19 07:05: White Blood Count 8.3, Red Blood Count 4.11L, Hemoglobin 11.1L, Hematocrit 36.0L , Mean Corpuscular Volume 87, Mean Corpuscular Hemoglobin 26.9L, Mean Corpuscular Hemoglobin Concent 30.8L, Red Cell Distribution Width 18.2H, Platelet Count 301, Mean Platelet Volume 6.8, Neutrophils (%) (Auto) 74.2, Lymphocytes (%) (Auto) 14.3L, Monocytes (%) (Auto) 6.1, Eosinophils (%) (Auto) 4.0H, Basophils (%) (Auto) 1.3, Sodium Level 139, Potassium Level 3.6, Chloride Level 102, Carbon Dioxide Level 29, Anion Gap 9, Blood Urea Nitrogen 20H, Creatinine 0.8, Estimat Glomerular Filtration Rate , Glucose Level 99, Calcium Level 9.7, Total Bilirubin 0.5, Aspartate Amino Transf (AST/SGOT) 75H, Alanine Aminotransferase (ALT/SGPT) 57, Alkaline Phosphatase 100, Pro-B-Type Natriuretic Peptide 808H, Total Protein 8.9H, Albumin 2.7L, Globulin 6.2, Albumin/Globulin Ratio 0.4L Height (Feet): 5 Height (Inches): 6.00 Weight (Pounds): 110 General Appearance: lethargic EENT: normal ENT inspection Neck: normal alignment Cardiovascular: normal peripheral pulses, normal rate, regular rhythm Respiratory/Chest: chest wall non-tender, decreased breath sounds Abdomen: normal bowel sounds, non tender, soft Extremities: normal inspection Edema: no edema noted Arm (L), no edema noted Arm (R), no edema noted Leg (L), no edema noted Leg (R), no edema noted Pedal (L), no edema noted Pedal (R), no edema noted Generalized Neurologic: motor weakness Skin: normal pigmentation, warm/dry Rio Lema DO Jan 24, 2019 14:27
--- NOTE | 2019-01-24 14:42 | NUR ---
NURSE NOTES: pt had big bowel after administered mineral oil. will continue to monitor
[2019-01-24] MEDS: Fleet's Mineral Oil Enema RECTAL PRN (15:15)
--- NOTE | 2019-01-24 15:17 | NUR ---
RD ASSESSMENT & RECOMMENDATIONS SEE CARE ACTIVITY FOR COMPLETE ASSESSMENT DAILY ESTIMATED NEEDS: Needs based on wasting, pulmonary/ 52kg 28-33 kcals/kg 2794-1120 total kcals 1.0-1.5 g protein/kg 52-78 g total protein 25-30 mL/kg 2845-4959 total fluid mLs NUTRITION DIAGNOSIS: Swallowing difficulty R/T dysphagia w/ h/o CVA + PNA as evidenced by SENIOR PACKAGING ENGINEER recommends pureed moist texture, NTL at this time CURRENT DIET: REGULAR, pureed moist, NTL PO DIET RECOMMENDATIONS: LOW NA/ texture per SENIOR PACKAGING ENGINEER ENTERAL NUTRITION RECOMMENDATIONS: * CONSULT RD IF NONORAL FEEDS ARE PART OF POC * WITH CONTINUED POOR PO INTAKE ADDITIONAL RECOMMENDATIONS: * Txr pt to bed with bedscale, obtain calibrated bedscale wt * Weekly wt monitoring- pt reports recent wt loss * Ensure Enlive TID w/ meals * Monitor PO intake and tolerance closely * on lasix, monitor lytes daily, replete as needed
--- NOTE | 2019-01-24 15:20 | NUR ---
CASE MANAGEMENT:REVIEW 01/24/19 SI: COPD. CHF. UTI 97.1 99 20 142/93 97% ON 2L/NC H/H-11.1/36.0 BUN+20 IS: IV AZACTAM Q8HRS ASA PO QD LASIX PO QD HEPARIN SQ Q12 METHADONE PO Q12 THEOPHYLLINE PO Q12 : MED/SURG STATUS 3 EAST DCP: PATIENT IS FROM [facility]
--- NOTE | 2019-01-24 15:43 | Cardiac Electrophysiology PN ---
Assessment/Plan Assessment/Plan 1. Type 2 NSTEMI. No CP or SOB. EF normal but has severe pulmonary HTN ECG incomplete LBBB, LVH. On aspirin. Off Betablocker for Asthma on steroids 2. CHF due to diastolic dysfunction with BNP>1500. On Lasix 40 mg po daily 3. Hypertension. 4. COPD exacerbation on Abx 5. Anemia. 6. UTI 8. Osteoarthritis. 9. Cervical radiculopathy. 10. Constipation DW RN Subjective Subjective Comfortable in NAD. No events. Objective Last 24 Hour Vital Signs Date Time Temp Pulse Resp B/P (MAP) Pulse Ox O2 Delivery O2 Flow Rate FiO2 01/24/19 12:00 97.1 99 20 142/93 (109) 97 01/24/19 09:00 Nasal Cannula 2.0 Nasal Cannula 2.0 01/24/19 08:10 100 Nasal Cannula 4.0 36 01/24/19 08:10 Nasal Cannula 4.0 36 01/24/19 08:00 98.9 100 20 136/86 (103) 97 01/24/19 04:00 98.1 89 20 131/78 (95) 96 01/24/19 00:00 98.4 95 20 112/67 (82) 99 01/23/19 21:00 Nasal Cannula 2.0 Nasal Cannula 2.0 01/23/19 20:00 98.3 89 20 103/63 (76) 100 01/23/19 19:45 Nasal Cannula 4.0 36 01/23/19 19:45 98 Nasal Cannula 4.0 36 01/23/19 16:00 98.1 78 20 122/63 (82) 95 Intake and Output 01/23/19 01/24/19 19:00 07:00 Intake Total 400 ml Output Total 500 ml Balance -100 ml Intake Oral 400 ml Output Urine Total 500 ml # Voids 2 2 Laboratory Tests Test 01/24/19 04:10 01/24/19 07:05 Stool Occult Blood Negative (NEGATIVE) White Blood Count 8.3 K/UL (4.8-10.8) Red Blood Count 4.11 M/UL (4.20-5.40) L Hemoglobin 11.1 G/DL (12.0-16.0) L Hematocrit 36.0 % (37.0-47.0) L Mean Corpuscular Volume 87 FL (80-99) Mean Corpuscular Hemoglobin 26.9 PG (27.0-31.0) L Mean Corpuscular Hemoglobin Concent 30.8 G/DL (32.0-36.0) L Red Cell Distribution Width 18.2 % (11.6-14.8) H Platelet Count 301 K/UL (150-450) Mean Platelet Volume 6.8 FL (6.5-10.1) Neutrophils (%) (Auto) 74.2 % (45.0-75.0) Lymphocytes (%) (Auto) 14.3 % (20.0-45.0) L Monocytes (%) (Auto) 6.1 % (1.0-10.0) Eosinophils (%) (Auto) 4.0 % (0.0-3.0) H Basophils (%) (Auto) 1.3 % (0.0-2.0) Sodium Level 139 MMOL/L (136-145) Potassium Level 3.6 MMOL/L (3.5-5.1) Chloride Level 102 MMOL/L (98-107) Carbon Dioxide Level 29 MMOL/L (21-32) Anion Gap 9 mmol/L (5-15) Blood Urea Nitrogen 20 mg/dL (7-18) H Creatinine 0.8 MG/DL (0.55-1.30) Estimat Glomerular Filtration Rate mL/min (>60) Glucose Level 99 MG/DL (74-106) Calcium Level 9.7 MG/DL (8.5-10.1) Total Bilirubin 0.5 MG/DL (0.2-1.0) Aspartate Amino Transf (AST/SGOT) 75 U/L (15-37) H Alanine Aminotransferase (ALT/SGPT) 57 U/L (12-78) Alkaline Phosphatase 100 U/L (46-116) Pro-B-Type Natriuretic Peptide 808 pg/mL (0-125) H Total Protein 8.9 G/DL (6.4-8.2) H Albumin 2.7 G/DL (3.4-5.0) L Globulin 6.2 g/dL Albumin/Globulin Ratio 0.4 (1.0-2.7) L Objective HEENT: No JVD Respiratory/Chest: Rhonchi - bilaterally Cardiovascular/Chest: normal peripheral pulses, normal rate, regular rhythm Abdomen: normal bowel sounds, non tender, soft, no organomegaly Extremities: no edema Renzo Burgess MD Jan 24, 2019 15:43
[2019-01-24 15:51] VITALS: BP 134/73
--- NOTE | 2019-01-24 19:26 | NUR ---
HAND-OFF: Report given to HUSSEIN Katz.
--- NOTE | 2019-01-24 19:30 | NUR ---
NURSE NOTES: Report received from HUSSEIN Rader. Patient alert, oriented, resting quietly in bed. Bed in low position, side rails up, call light within reach. Will continue to monitor.
[2019-01-24 20:00] VITALS: BP 107/60
[2019-01-24] MEDS: Miralax 17gm pkt ORAL SCH (21:11)
[2019-01-25] VITALS: BP 110/59
[2019-01-25 04:00] VITALS: BP 114/62
[2019-01-25] MEDS: Aztreonam Inj 1 GM in NS 50 ML IVPB SCH (06:24)
[2019-01-25 07:25] LABS: ANION GAP 7 mmol/L (5-15); BLOOD UREA NITROGEN 19 mg/dL (7-18); CALCIUM 9.2 MG/DL (8.5-10.1); CARBON DIOXIDE 30 MMOL/L (21-32); CHLORIDE 103 MMOL/L (98-107); CREATININE 0.7 MG/DL (0.55-1.30); POTASSIUM 3.2 MMOL/L (3.5-5.1); SODIUM 140 MMOL/L (136-145)
--- NOTE | 2019-01-25 07:41 | NUR ---
NURSE NOTES: report give to Bouchra Sanchez RN
--- NOTE | 2019-01-25 07:41 | NUR ---
NURSE NOTES:WALKING ROUNDS DONE WITH NIGHT RN(SARY),PATIENT EATING BREAKFAST,A/OX4,NO SOB,ON 2LITERS N/C,NO C/O PAIN.IV SITE PATENT.WILL CONTINUE PLAN OF CARE
[2019-01-25 07:57] LABS: EOSINOPHILS % (AUTO) 5.8 % (0.0-3.0); HEMATOCRIT 32.3 % (37.0-47.0); HEMOGLOBIN 9.9 G/DL (12.0-16.0); LYMPHOCYTES % (AUTO) 15.1 % (20.0-45.0); MEAN CORPUSCULAR VOLUME 88 FL (80-99); MONOCYTES % (AUTO) 6.3 % (1.0-10.0); NEUTROPHILS % (AUTO) 71.8 % (45.0-75.0); PLATELET COUNT 275 K/UL (150-450); RED BLOOD COUNT 3.67 M/UL (4.20-5.40); WHITE BLOOD COUNT 8.8 K/UL (4.8-10.8)
[2019-01-25 08:00] VITALS: BP 125/67
[2019-01-25] MEDS: Theophylline ER 100mg ORAL SCH ×2 (08:08→20:57)
[2019-01-25] MEDS: Aspirin EC 81mg tab ORAL SCH (08:09)
[2019-01-25] MEDS: Heparin 5000 units/ml inj SUBQ SCH ×2 (08:13→21:13)
[2019-01-25] MEDS: Furosemide 40mg tab ORAL SCH (08:17)
[2019-01-25] MEDS: Docusate 100mg cap ORAL SCH ×2 (08:17→17:58)
--- NOTE | 2019-01-25 10:40 | NUR ---
DISCHARGE PLANNING PATIENT IS FROM [facility] BUT THEY NO LONGER HAVE ANY FEMALE BEDS AVAILABLE [facility] PLAN REAMING MACHINE OPERATOR IS CURRENTLY LOOKING FOR NEW SNF PLACEMENT FOR THIS PATIENT BASED ON THEIR CONTRACTED SNF LIST Addendum: 01/25/19 at 1042 by LISETTE BERNABE LVN LVN LEFT MESSAGE FOR DR BENDER REGARDING DISCHARGE PLANNING
--- NOTE | 2019-01-25 10:58 | NUR ---
NURSE NOTES:DR. SMITH AWARE RE:K3.2,ORDERS CARRIED OUT.
--- NOTE | 2019-01-25 11:13 | GI Progress Note ---
Assessment/Plan Problems: (1) Anemia ICD Codes: D64.9 - Anemia, unspecified SNOMED: 344859643 (2) Protein-calorie malnutrition, severe ICD Codes: E43 - Unspecified severe protein-calorie malnutrition SNOMED: 076021957, 759626217, 717379386 (3) Constipation ICD Codes: K59.00 - Constipation, unspecified SNOMED: 43191122 Status: progressing Status Narrative Discussed with Dr. Mustafa. Assessment/Plan Pending final KUB report Hepatitis C positive, pending Hep C TMA constipation, resolved Patient is on a regular diet Bowel regimen >> patient is already on Colace, will add MiraLAX nightly Dulcolax as needed for severe constipation Outpatient GI procedures IV and p.o. hydration plus electrolyte correction Follow labs The patient was seen and examined at bedside and all new and available data was reviewed in the patients chart. I agree with the above findings, impression and plan. (Patient seen earlier today. Signature stamp does not reflect patient encounter time.). - Adrian Mustafa MD Subjective Gastrointestinal/Abdominal: Reports: no symptoms Subjective abdominal pain improved had multiple bowel movements yesterday Objective Last 24 Hour Vital Signs Date Time Temp Pulse Resp B/P (MAP) Pulse Ox O2 Delivery O2 Flow Rate FiO2 01/25/19 08:00 97.6 76 18 125/67 (86) 99 01/25/19 07:54 88 16 99 Nasal Cannula 3.0 32 01/25/19 07:52 Nasal Cannula 2.0 Nasal Cannula 2.0 01/25/19 07:45 78 16 99 Nasal Cannula 3.0 32 01/25/19 07:45 99 Nasal Cannula 3.0 32 01/25/19 07:45 32 01/25/19 07:45 Nasal Cannula 3.0 32 01/25/19 04:00 97.6 80 19 114/62 (79) 99 01/25/19 00:00 98.4 82 20 110/59 (76) 99 01/24/19 21:00 Nasal Cannula 2.0 Nasal Cannula 2.0 01/24/19 20:09 Nasal Cannula 2.0 28 01/24/19 20:07 98 Nasal Cannula 2.0 28 01/24/19 20:00 98.1 81 17 107/60 (76) 99 01/24/19 15:51 97.1 103 20 134/73 (93) 97 01/24/19 12:00 97.1 99 20 142/93 (109) 97 Intake and Output 01/24/19 01/25/19 18:59 06:59 Intake Total 550 ml 360 ml Output Total 600 ml Balance 550 ml -240 ml Intake Oral 500 ml 360 ml IV Total 50 ml Output Urine Total 600 ml # Voids 3 # Bowel Movements 4 1 Laboratory Tests Test 01/25/19 06:38 White Blood Count 8.8 K/UL (4.8-10.8) Red Blood Count 3.67 M/UL (4.20-5.40) L Hemoglobin 9.9 G/DL (12.0-16.0) L Hematocrit 32.3 % (37.0-47.0) L Mean Corpuscular Volume 88 FL (80-99) Mean Corpuscular Hemoglobin 26.9 PG (27.0-31.0) L Mean Corpuscular Hemoglobin Concent 30.6 G/DL (32.0-36.0) L Red Cell Distribution Width 18.0 % (11.6-14.8) H Platelet Count 275 K/UL (150-450) Mean Platelet Volume 6.4 FL (6.5-10.1) L Neutrophils (%) (Auto) 71.8 % (45.0-75.0) Lymphocytes (%) (Auto) 15.1 % (20.0-45.0) L Monocytes (%) (Auto) 6.3 % (1.0-10.0) Eosinophils (%) (Auto) 5.8 % (0.0-3.0) H Basophils (%) (Auto) 1.0 % (0.0-2.0) Sodium Level 140 MMOL/L (136-145) Potassium Level 3.2 MMOL/L (3.5-5.1) L Chloride Level 103 MMOL/L (98-107) Carbon Dioxide Level 30 MMOL/L (21-32) Anion Gap 7 mmol/L (5-15) Blood Urea Nitrogen 19 mg/dL (7-18) H Creatinine 0.7 MG/DL (0.55-1.30) Estimat Glomerular Filtration Rate mL/min (>60) Glucose Level 90 MG/DL (74-106) Calcium Level 9.2 MG/DL (8.5-10.1) Height (Feet): 5 Height (Inches): 6.00 Weight (Pounds): 110 General Appearance: WD/WN, no apparent distress, alert, thin Cardiovascular: normal rate Respiratory/Chest: normal breath sounds, no respiratory distress Abdominal Exam: normal bowel sounds, non tender, soft Extremities: normal range of motion, non-tender Loy Hamilton NP Jan 25, 2019 11:13
--- NOTE | 2019-01-25 11:19 | NUR ---
NURSE NOTES:refused to be weight today.
--- NOTE | 2019-01-25 11:56 | Pulmonology Progress Note ---
Assessment/Plan Problems: (1) Acute respiratory failure (2) COPD exacerbation (3) Pulmonary hypertension (4) Pulmonary fibrosis (5) Elevated troponin (6) Protein-calorie malnutrition, severe (7) Hypertension Assessment/Plan constipated, got enema feeling better cxr better, 01/24 continue abx until sputum is available CT chest reviewed, pt has extensive fibrosis and chronic changes Echo reviewed, Grade one diastolic dysfunction trial of lidocaine inhalers and chronic Methadone to suppress dyspnea. ( it is helping her a lot) f/u cardiology recommendations Poor overall prognosis. med/surgery Subjective ROS Limited/Unobtainable: No Constitutional: Reports: no symptoms HEENT: Repors: no symptoms Allergies: Coded Allergies: PENICILLINS (Verified Allergy, Unknown, SWELLING EVERYWHERE, EVEN EYES PER PATIENT, 11/24/11) Objective Last 24 Hour Vital Signs Date Time Temp Pulse Resp B/P (MAP) Pulse Ox O2 Delivery O2 Flow Rate FiO2 01/25/19 08:00 97.6 76 18 125/67 (86) 99 01/25/19 07:54 88 16 99 Nasal Cannula 3.0 32 01/25/19 07:52 Nasal Cannula 2.0 Nasal Cannula 2.0 01/25/19 07:45 78 16 99 Nasal Cannula 3.0 32 01/25/19 07:45 99 Nasal Cannula 3.0 32 01/25/19 07:45 32 01/25/19 07:45 Nasal Cannula 3.0 32 01/25/19 04:00 97.6 80 19 114/62 (79) 99 01/25/19 00:00 98.4 82 20 110/59 (76) 99 01/24/19 21:00 Nasal Cannula 2.0 Nasal Cannula 2.0 01/24/19 20:09 Nasal Cannula 2.0 28 01/24/19 20:07 98 Nasal Cannula 2.0 28 01/24/19 20:00 98.1 81 17 107/60 (76) 99 01/24/19 15:51 97.1 103 20 134/73 (93) 97 01/24/19 12:00 97.1 99 20 142/93 (109) 97 Intake and Output 01/24/19 01/25/19 18:59 06:59 Intake Total 550 ml 360 ml Output Total 600 ml Balance 550 ml -240 ml Intake Oral 500 ml 360 ml IV Total 50 ml Output Urine Total 600 ml # Voids 3 # Bowel Movements 4 1 Objective General Appearance: cachetic HEENT: normocephalic, atraumatic Respiratory/Chest: chest wall non-tender, normal breath sounds Cardiovascular: normal peripheral pulses, regular rhythm Abdomen: normal bowel sounds, soft, non tender Laboratory Tests 01/25/19 06:38: White Blood Count 8.8, Red Blood Count 3.67L, Hemoglobin 9.9L, Hematocrit 32.3L , Mean Corpuscular Volume 88, Mean Corpuscular Hemoglobin 26.9L, Mean Corpuscular Hemoglobin Concent 30.6L, Red Cell Distribution Width 18.0H, Platelet Count 275, Mean Platelet Volume 6.4L, Neutrophils (%) (Auto) 71.8, Lymphocytes (%) (Auto) 15.1L, Monocytes (%) (Auto) 6.3, Eosinophils (%) (Auto) 5.8H, Basophils (%) (Auto) 1.0, Sodium Level 140, Potassium Level 3.2L, Chloride Level 103, Carbon Dioxide Level 30, Anion Gap 7, Blood Urea Nitrogen 19H, Creatinine 0.7, Estimat Glomerular Filtration Rate , Glucose Level 90, Calcium Level 9.2 Current Medications Medications (Trade) Dose Ordered Sig/Charly Route PRN Reason Start Time Stop Time Status Last Admin Dose Admin Albuterol/ Ipratropium (Albuterol/ Ipratropium) 3 ml Q4H PRN HHN Shortness of Breath 01/23/19 15:45 01/28/19 15:44 01/25/19 07:46 Aspirin (Ecotrin) 81 mg DAILY ORAL 01/22/19 09:00 02/18/19 08:59 01/25/19 08:09 Aztreonam 1 gm/ Sodium Chloride 50 ml @ 100 mls/hr Q8HR IVPB 01/21/19 22:00 01/25/19 11:59 01/25/19 06:24 Bisacodyl (Dulcolax) 10 mg BIDPRN PRN RECTAL Constipation 01/23/19 10:00 02/22/19 09:59 01/24/19 03:55 Dextrose (Dextrose 50%) 25 ml Q30M PRN IV Hypoglycemia 01/21/19 19:45 02/16/19 17:32 Dextrose (Dextrose 50%) 50 ml Q30M PRN IV Hypoglycemia 01/21/19 19:45 02/16/19 17:32 Docusate Sodium (Colace) 100 mg TWICE A DAY ORAL 01/23/19 10:00 02/22/19 09:59 01/24/19 17:12 Furosemide (Lasix) 40 mg DAILY ORAL 01/22/19 09:00 02/21/19 08:59 01/24/19 08:19 Heparin Sodium (Porcine) (Heparin 5000 units/ml) 5,000 units EVERY 12 HOURS SUBQ 01/21/19 21:00 02/16/19 20:59 01/25/19 08:13 Lidocaine (Xylocaine 1% MPF 5ml) 10 ml Q4H PRN HHN cough 01/21/19 19:13 02/18/19 19:12 Lorazepam (Ativan 2mg/ml 1ml) 0.5 mg Q4H PRN IV For Anxiety 01/23/19 15:15 01/28/19 19:12 01/24/19 03:56 Methadone HCl (Methadone HCl) 2.5 mg EVERY 12 HOURS ORAL 01/21/19 21:00 01/26/19 20:59 01/25/19 08:10 Mineral Oil (Fleet's Mineral Oil Enema) 133 ml DAILYPRN PRN RECTAL Constipation 01/24/19 09:30 02/23/19 09:29 01/24/19 15:15 Nitroglycerin (Ntg) 0.4 mg Q5M X 3 DOSES PRN SL Prn Chest Pain 01/21/19 19:15 02/16/19 17:33 Ondansetron HCl (Zofran) 4 mg Q6H PRN IVP Nausea & Vomiting 01/21/19 19:13 02/16/19 19:12 Polyethylene Glycol (Miralax) 17 gm BEDTIME ORAL 01/24/19 21:00 02/23/19 20:59 01/24/19 21:11 Potassium Chloride (K-Dur) 40 meq DAILY ORAL 01/25/19 11:00 02/24/19 10:59 01/25/19 11:12 Promethazine HCl/ Codeine (Phenergan with Codeine) 5 ml Q6H PRN ORAL cough 01/21/19 19:14 02/16/19 19:13 Quetiapine Fumarate (SEROquel) 25 mg Q12HR ORAL 01/21/19 21:00 02/17/19 20:59 01/25/19 08:10 Temazepam (Restoril) 15 mg HSPRN PRN ORAL Insomnia 01/23/19 21:00 01/28/19 20:59 01/24/19 22:51 Theophylline (Jimmy-Dur) 100 mg EVERY 12 HOURS ORAL 01/21/19 21:00 02/16/19 20:59 01/25/19 08:08 Jersey Chadwick MD Jan 25, 2019 11:56
[2019-01-25 12:00] VITALS: BP 108/54
--- NOTE | 2019-01-25 13:40 | Infectious Diseases Prog Note ---
Assessment/Plan Assessment/Plan Assessment: Probable Aspiration PNA vs pneumonitis, sp Rx -sp cx PsA (R Levo/Cipro; otherwise S including Aztreonam) Pneumomediastinum-suspected to rupture R side paratracheal bleb -01/25 CXR: Suspected interstitial disease. This may be chronic due to fibrosis. Pneumomediastinum. -01/20 CXR: Increasing bilateral parenchymal opacities, likely reflecting increasing edema or infiltrate superimposed on pre-existing chronic opacities. Central mediastinal lucency, likely reflects pneumomediastinum described on recent chest CT -CTA chest: Negative for acute pulmonary embolus or other acute thoracic vascular pathology. Pneumomediastinum. Suspect due to a ruptured right-sided medial bleb. Evidence of extensive chronic pulmonary parenchymal interstitial disease, with areas of honeycombing and bronchiectasis. No definite acute pulmonary parenchymal process. Ectatic main and left main pulmonary arteries, suggestive of pulmonary arterial hypertension. Bullae and subpleural blebs, may be related to the interstitial fibrotic process or could represent COPD changes -CXR: Cardiomegaly. Bilateral extensive interstitial and airspace opacities, slightly increased from but similar in distribution to prior study of 2017. Suspect component of chronic interstitial fibrosis with superimposed acute edema or infiltrates -influenza sc neg Afebrile No leukocytosis AST elevation; improving -HIV ab sc neg -Hep C+ DM HTN [place] CAD CHF cervical radiculopathy CVA asthma COPD /Emphysema sp Bilateral hip replacement [facility] resident Plan: -Continue to monitor off abx -01/25 SP Aztreonam #7 -01/24 SP Azithromycin #5 -01/17 SP Ceftriaxone x1 -f/u cx -monitor CBC/CMP, temperatures -f/u legionella ag urine -aspiration precautions -f/u Hep C VL Thank you for this consultation. Will continue to follow along with you. Discussed with RN. Subjective Allergies: Coded Allergies: PENICILLINS (Verified Allergy, Unknown, SWELLING EVERYWHERE, EVEN EYES PER PATIENT, 11/24/11) Subjective afebrile at 2l NC no leukocytosis AST improving Objective Vital Signs Last 24 Hour Vital Signs Date Time Temp Pulse Resp B/P (MAP) Pulse Ox O2 Delivery O2 Flow Rate FiO2 01/25/19 12:00 97.9 85 18 108/54 (72) 100 01/25/19 08:00 97.6 76 18 125/67 (86) 99 01/25/19 07:54 88 16 99 Nasal Cannula 3.0 32 01/25/19 07:52 Nasal Cannula 2.0 Nasal Cannula 2.0 01/25/19 07:45 78 16 99 Nasal Cannula 3.0 32 01/25/19 07:45 99 Nasal Cannula 3.0 32 01/25/19 07:45 32 01/25/19 07:45 Nasal Cannula 3.0 32 01/25/19 04:00 97.6 80 19 114/62 (79) 99 01/25/19 00:00 98.4 82 20 110/59 (76) 99 01/24/19 21:00 Nasal Cannula 2.0 Nasal Cannula 2.0 01/24/19 20:09 Nasal Cannula 2.0 28 01/24/19 20:07 98 Nasal Cannula 2.0 28 01/24/19 20:00 98.1 81 17 107/60 (76) 99 01/24/19 15:51 97.1 103 20 134/73 (93) 97 Height (Feet): 5 Height (Inches): 6.00 Weight (Pounds): 110 Objective GENERAL: Calm in bed, O2 NC, slight short of breath. Oriented x2, no acute distress. CARDIOVASCULAR: No murmurs. LUNGS: Poor air exchange. ABDOMEN: Bowel sounds distant. EXTREMITIES: No cyanosis, clubbing, or edema. NEUROLOGIC: The patient moves all extremities, slightly weak. Laboratory Tests Test 01/25/19 06:38 White Blood Count 8.8 K/UL (4.8-10.8) Red Blood Count 3.67 M/UL (4.20-5.40) L Hemoglobin 9.9 G/DL (12.0-16.0) L Hematocrit 32.3 % (37.0-47.0) L Mean Corpuscular Volume 88 FL (80-99) Mean Corpuscular Hemoglobin 26.9 PG (27.0-31.0) L Mean Corpuscular Hemoglobin Concent 30.6 G/DL (32.0-36.0) L Red Cell Distribution Width 18.0 % (11.6-14.8) H Platelet Count 275 K/UL (150-450) Mean Platelet Volume 6.4 FL (6.5-10.1) L Neutrophils (%) (Auto) 71.8 % (45.0-75.0) Lymphocytes (%) (Auto) 15.1 % (20.0-45.0) L Monocytes (%) (Auto) 6.3 % (1.0-10.0) Eosinophils (%) (Auto) 5.8 % (0.0-3.0) H Basophils (%) (Auto) 1.0 % (0.0-2.0) Sodium Level 140 MMOL/L (136-145) Potassium Level 3.2 MMOL/L (3.5-5.1) L Chloride Level 103 MMOL/L (98-107) Carbon Dioxide Level 30 MMOL/L (21-32) Anion Gap 7 mmol/L (5-15) Blood Urea Nitrogen 19 mg/dL (7-18) H Creatinine 0.7 MG/DL (0.55-1.30) Estimat Glomerular Filtration Rate mL/min (>60) Glucose Level 90 MG/DL (74-106) Calcium Level 9.2 MG/DL (8.5-10.1) Current Medications Medications (Trade) Dose Ordered Sig/Charly Route PRN Reason Start Time Stop Time Status Last Admin Dose Admin Albuterol/ Ipratropium (Albuterol/ Ipratropium) 3 ml Q4H PRN HHN Shortness of Breath 01/23/19 15:45 01/28/19 15:44 01/25/19 07:46 Aspirin (Ecotrin) 81 mg DAILY ORAL 01/22/19 09:00 02/18/19 08:59 01/25/19 08:09 Bisacodyl (Dulcolax) 10 mg BIDPRN PRN RECTAL Constipation 01/23/19 10:00 02/22/19 09:59 01/24/19 03:55 Dextrose (Dextrose 50%) 25 ml Q30M PRN IV Hypoglycemia 01/21/19 19:45 02/16/19 17:32 Dextrose (Dextrose 50%) 50 ml Q30M PRN IV Hypoglycemia 01/21/19 19:45 02/16/19 17:32 Docusate Sodium (Colace) 100 mg TWICE A DAY ORAL 01/23/19 10:00 02/22/19 09:59 01/24/19 17:12 Furosemide (Lasix) 40 mg DAILY ORAL 01/22/19 09:00 02/21/19 08:59 01/24/19 08:19 Heparin Sodium (Porcine) (Heparin 5000 units/ml) 5,000 units EVERY 12 HOURS SUBQ 01/21/19 21:00 02/16/19 20:59 01/25/19 08:13 Lidocaine (Xylocaine 1% MPF 5ml) 10 ml Q4H PRN HHN cough 01/21/19 19:13 02/18/19 19:12 Lorazepam (Ativan 2mg/ml 1ml) 0.5 mg Q4H PRN IV For Anxiety 01/23/19 15:15 01/28/19 19:12 01/24/19 03:56 Methadone HCl (Methadone HCl) 2.5 mg EVERY 12 HOURS ORAL 01/21/19 21:00 01/26/19 20:59 01/25/19 08:10 Mineral Oil (Fleet's Mineral Oil Enema) 133 ml DAILYPRN PRN RECTAL Constipation 01/24/19 09:30 02/23/19 09:29 01/24/19 15:15 Nitroglycerin (Ntg) 0.4 mg Q5M X 3 DOSES PRN SL Prn Chest Pain 01/21/19 19:15 02/16/19 17:33 Ondansetron HCl (Zofran) 4 mg Q6H PRN IVP Nausea & Vomiting 01/21/19 19:13 02/16/19 19:12 Polyethylene Glycol (Miralax) 17 gm BEDTIME ORAL 01/24/19 21:00 02/23/19 20:59 01/24/19 21:11 Potassium Chloride (K-Dur) 40 meq DAILY ORAL 01/25/19 11:00 02/24/19 10:59 01/25/19 11:12 Promethazine HCl/ Codeine (Phenergan with Codeine) 5 ml Q6H PRN ORAL cough 01/21/19 19:14 02/16/19 19:13 Quetiapine Fumarate (SEROquel) 25 mg Q12HR ORAL 01/21/19 21:00 02/17/19 20:59 01/25/19 08:10 Temazepam (Restoril) 15 mg HSPRN PRN ORAL Insomnia 01/23/19 21:00 01/28/19 20:59 01/24/19 22:51 Theophylline (Jimmy-Dur) 100 mg EVERY 12 HOURS ORAL 01/21/19 21:00 02/16/19 20:59 01/25/19 08:08 Katt Ken M.D. Jan 25, 2019 13:40
--- NOTE | 2019-01-25 14:49 | General Progress Note ---
Assessment/Plan Problem List: (1) UTI (urinary tract infection) ICD Codes: N39.0 - Urinary tract infection, site not specified SNOMED: 80617994 (2) Anemia ICD Codes: D64.9 - Anemia, unspecified SNOMED: 828907609 (3) Arthritis ICD Codes: M19.90 - Unspecified osteoarthritis, unspecified site SNOMED: 1788938 (4) Hypertension ICD Codes: I10 - Essential (primary) hypertension SNOMED: 46415801 (5) COPD exacerbation ICD Codes: J44.1 - Chronic obstructive pulmonary disease with (acute) exacerbation SNOMED: 058188330, 207926466, 934030151 (6) CHF exacerbation ICD Codes: I50.9 - Heart failure, unspecified SNOMED: 40893788, 487799174, 924724667 (7) Cervical radiculopathy ICD Codes: M54.12 - Radiculopathy, cervical region SNOMED: 68046300 Status: stable, progressing Assessment/Plan o2 pulm tx abt pain control pt diet sx eval cbc bmp am dc to snf if clear Subjective Constitutional: Reports: weakness Respiratory: Reports: shortness of breath Allergies: Coded Allergies: PENICILLINS (Verified Allergy, Unknown, SWELLING EVERYWHERE, EVEN EYES PER PATIENT, 11/24/11) All Systems: reviewed and negative except above Subjective o2nc sleepy in bed Objective Last 24 Hour Vital Signs Date Time Temp Pulse Resp B/P (MAP) Pulse Ox O2 Delivery O2 Flow Rate FiO2 01/25/19 12:00 97.9 85 18 108/54 (72) 100 01/25/19 08:00 97.6 76 18 125/67 (86) 99 01/25/19 07:54 88 16 99 Nasal Cannula 3.0 32 01/25/19 07:52 Nasal Cannula 2.0 Nasal Cannula 2.0 01/25/19 07:45 78 16 99 Nasal Cannula 3.0 32 01/25/19 07:45 99 Nasal Cannula 3.0 32 01/25/19 07:45 32 01/25/19 07:45 Nasal Cannula 3.0 32 01/25/19 04:00 97.6 80 19 114/62 (79) 99 01/25/19 00:00 98.4 82 20 110/59 (76) 99 01/24/19 21:00 Nasal Cannula 2.0 Nasal Cannula 2.0 3/19/19 20:09 Nasal Cannula 2.0 28 01/24/19 20:07 98 Nasal Cannula 2.0 28 01/24/19 20:00 98.1 81 17 107/60 (76) 99 01/24/19 15:51 97.1 103 20 134/73 (93) 97 Intake and Output 01/24/19 01/25/19 19:00 07:00 Intake Total 550 ml 360 ml Output Total 600 ml Balance 550 ml -240 ml Intake Oral 500 ml 360 ml IV Total 50 ml Output Urine Total 600 ml # Voids 3 # Bowel Movements 4 1 Laboratory Tests 01/25/19 06:38: White Blood Count 8.8, Red Blood Count 3.67L, Hemoglobin 9.9L, Hematocrit 32.3L , Mean Corpuscular Volume 88, Mean Corpuscular Hemoglobin 26.9L, Mean Corpuscular Hemoglobin Concent 30.6L, Red Cell Distribution Width 18.0H, Platelet Count 275, Mean Platelet Volume 6.4L, Neutrophils (%) (Auto) 71.8, Lymphocytes (%) (Auto) 15.1L, Monocytes (%) (Auto) 6.3, Eosinophils (%) (Auto) 5.8H, Basophils (%) (Auto) 1.0, Sodium Level 140, Potassium Level 3.2L, Chloride Level 103, Carbon Dioxide Level 30, Anion Gap 7, Blood Urea Nitrogen 19H, Creatinine 0.7, Estimat Glomerular Filtration Rate , Glucose Level 90, Calcium Level 9.2 Height (Feet): 5 Height (Inches): 6.00 Weight (Pounds): 110 General Appearance: lethargic EENT: normal ENT inspection Neck: normal alignment Cardiovascular: normal peripheral pulses, normal rate, regular rhythm Respiratory/Chest: chest wall non-tender, decreased breath sounds Abdomen: normal bowel sounds, non tender, soft Extremities: normal inspection Edema: no edema noted Arm (L), no edema noted Arm (R), no edema noted Leg (L), no edema noted Leg (R), no edema noted Pedal (L), no edema noted Pedal (R), no edema noted Generalized Neurologic: responsive, motor weakness Skin: normal pigmentation, warm/dry Rio Lema DO Jan 25, 2019 14:49
--- NOTE | 2019-01-25 15:00 | NUR ---
NURSE NOTES:SPOKE WITH LISETTE(RADHA),RE:PENDING D/C.PER CONVERSATION PATIENT WILL STAY HERE OVERNIGHT,SHE WILL LOOK FOR PLACEMENT TOMORROW.CHARGE NURSE(KIARA SAVAGE)INFORMED.
--- NOTE | 2019-01-25 15:48 | Cardiac Electrophysiology PN ---
Assessment/Plan Assessment/Plan 1. Type 2 NSTEMI. No CP or SOB. EF normal . ECG incomplete LBBB, LVH. On aspirin. Off Betablocker for Asthma on steroids 2. CHF due to diastolic dysfunction with BNP>1500. On Lasix 40 mg po daily 3. Hypertension. 4. COPD exacerbation on Abx and severe pulmonary HTN 5. Anemia. 6. UTI 8. Osteoarthritis. 9. Cervical radiculopathy. 10. Constipation DW RN Subjective Subjective Comfortable in NAD. No CP. Is mildly SOB. Objective Last 24 Hour Vital Signs Date Time Temp Pulse Resp B/P (MAP) Pulse Ox O2 Delivery O2 Flow Rate FiO2 01/25/19 12:00 97.9 85 18 108/54 (72) 100 01/25/19 08:00 97.6 76 18 125/67 (86) 99 01/25/19 07:54 88 16 99 Nasal Cannula 3.0 32 01/25/19 07:52 Nasal Cannula 2.0 Nasal Cannula 2.0 01/25/19 07:45 78 16 99 Nasal Cannula 3.0 32 01/25/19 07:45 99 Nasal Cannula 3.0 32 01/25/19 07:45 32 01/25/19 07:45 Nasal Cannula 3.0 32 01/25/19 04:00 97.6 80 19 114/62 (79) 99 01/25/19 00:00 98.4 82 20 110/59 (76) 99 01/24/19 21:00 Nasal Cannula 2.0 Nasal Cannula 2.0 01/24/19 20:09 Nasal Cannula 2.0 28 01/24/19 20:07 98 Nasal Cannula 2.0 28 01/24/19 20:00 98.1 81 17 107/60 (76) 99 01/24/19 15:51 97.1 103 20 134/73 (93) 97 Intake and Output 01/24/19 01/25/19 19:00 07:00 Intake Total 550 ml 360 ml Output Total 600 ml Balance 550 ml -240 ml Intake Oral 500 ml 360 ml IV Total 50 ml Output Urine Total 600 ml # Voids 3 # Bowel Movements 4 1 Laboratory Tests Test 01/25/19 06:38 White Blood Count 8.8 K/UL (4.8-10.8) Red Blood Count 3.67 M/UL (4.20-5.40) L Hemoglobin 9.9 G/DL (12.0-16.0) L Hematocrit 32.3 % (37.0-47.0) L Mean Corpuscular Volume 88 FL (80-99) Mean Corpuscular Hemoglobin 26.9 PG (27.0-31.0) L Mean Corpuscular Hemoglobin Concent 30.6 G/DL (32.0-36.0) L Red Cell Distribution Width 18.0 % (11.6-14.8) H Platelet Count 275 K/UL (150-450) Mean Platelet Volume 6.4 FL (6.5-10.1) L Neutrophils (%) (Auto) 71.8 % (45.0-75.0) Lymphocytes (%) (Auto) 15.1 % (20.0-45.0) L Monocytes (%) (Auto) 6.3 % (1.0-10.0) Eosinophils (%) (Auto) 5.8 % (0.0-3.0) H Basophils (%) (Auto) 1.0 % (0.0-2.0) Sodium Level 140 MMOL/L (136-145) Potassium Level 3.2 MMOL/L (3.5-5.1) L Chloride Level 103 MMOL/L (98-107) Carbon Dioxide Level 30 MMOL/L (21-32) Anion Gap 7 mmol/L (5-15) Blood Urea Nitrogen 19 mg/dL (7-18) H Creatinine 0.7 MG/DL (0.55-1.30) Estimat Glomerular Filtration Rate mL/min (>60) Glucose Level 90 MG/DL (74-106) Calcium Level 9.2 MG/DL (8.5-10.1) Objective HEENT: No JVD Respiratory/Chest: Rhonchi - bilaterally Cardiovascular/Chest: normal peripheral pulses, normal rate, regular rhythm Abdomen: normal bowel sounds, non tender, soft, no organomegaly Extremities: no edema Renzo Burgess MD Jan 25, 2019 15:48
--- NOTE | 2019-01-25 15:49 | NUR ---
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 HE WAS WAITING FOR THE OFFICIAL DISCHARGE ORDER WHICH HAS NOW BEEN FAXED TO HIM. PER COLETTE THEY DO NOT HAVE A CONTRACT WITH [facility] WILL DISCHARGE ONCE [facility] HAS SECURED A BED PROVIDED [facility] WITH PHONE NUMBER TO [facility]
[2019-01-25 16:00] VITALS: BP 112/55
--- NOTE | 2019-01-25 16:00 | NUR ---
NURSE NOTES:BED EXERCISE DONE WITH PHYSICAL THERAPY.
--- NOTE | 2019-01-25 19:40 | NUR ---
NURSE NOTES: Pt is resting in bed comfortably, AAOX3, no distress noted. requesting Miralax later for constipation, will f/u. Call light w/in reach.
--- NOTE | 2019-01-25 19:46 | NUR ---
HAND-OFF: Report given to JOHN SAVAGE,PATIENT STABLE.
[2019-01-25 20:00] VITALS: BP 126/63
[2019-01-25] MEDS: Miralax 17gm pkt ORAL SCH (20:58)
[2019-01-26] VITALS: BP 115/60
[2019-01-26 04:00] VITALS: BP 116/55
[2019-01-26 07:41] LABS: BASOPHILS % (AUTO) 1.4 % (0.0-2.0); EOSINOPHILS % (AUTO) 4.9 % (0.0-3.0); HEMATOCRIT 31.1 % (37.0-47.0); HEMOGLOBIN 9.8 G/DL (12.0-16.0); LYMPHOCYTES % (AUTO) 15.7 % (20.0-45.0); MEAN CORPUSCULAR VOLUME 87 FL (80-99); MONOCYTES % (AUTO) 6.9 % (1.0-10.0); NEUTROPHILS % (AUTO) 71.1 % (45.0-75.0); PLATELET COUNT 267 K/UL (150-450); RED BLOOD COUNT 3.58 M/UL (4.20-5.40); RED CELL DISTRIBUTION WIDTH 17.6 % (11.6-14.8); WHITE BLOOD COUNT 9.5 K/UL (4.8-10.8)
[2019-01-26 07:43] LABS: ANION GAP 8 mmol/L (5-15); BLOOD UREA NITROGEN 16 mg/dL (7-18); CALCIUM 9.7 MG/DL (8.5-10.1); CARBON DIOXIDE 29 MMOL/L (21-32); CHLORIDE 101 MMOL/L (98-107); CREATININE 0.7 MG/DL (0.55-1.30); SODIUM 138 MMOL/L (136-145)
--- NOTE | 2019-01-26 07:45 | NUR ---
NURSE NOTES: Received report from Janine SAVAGE. Patient is awake alert and oriented x4, no acute distress noted. Sitting up at bedside, on 2L NC. Reporting no pain. IV intact and asymptomatic. Side rails upx3, bed low and locked, call light in reach. Will continue to monitor.
--- NOTE | 2019-01-26 07:45 | NUR ---
HAND-OFF: Report given to HUSSEIN Pride.
[2019-01-26 08:00] VITALS: BP 121/73
--- NOTE | 2019-01-26 09:10 | NUR ---
MOTOR BRAKEMAN Co-Signature: Reviewed patient's chart. Reviewed and approved MOTOR BRAKEMAN notes Addendum: 01/26/19 at 0911 by CONY GÓMEZ PT,MG Amended: Links added.
--- NOTE | 2019-01-26 09:11 | NUR ---
MEDICAL RECORDS LIBRARY PROFESSOR Co-Signature: Reviewed patient's chart. Reviewed and approved MEDICAL RECORDS LIBRARY PROFESSOR notes Addendum: 01/26/19 at 0911 by CONY GÓMEZ PT,MG Amended: Links added.
[2019-01-26] MEDS: Docusate 100mg cap ORAL SCH ×2 (09:33→17:48)
[2019-01-26] MEDS: Furosemide 40mg tab ORAL SCH (09:33)
[2019-01-26] MEDS: Aspirin EC 81mg tab ORAL SCH (09:33)
[2019-01-26] MEDS: Theophylline ER 100mg ORAL SCH ×2 (09:33→21:14)
[2019-01-26] MEDS: Heparin 5000 units/ml inj SUBQ SCH ×2 (09:34→21:21)
--- NOTE | 2019-01-26 09:37 | NUR ---
FAMILY SOCIOLOGIST Co-Signature: Reviewed patient's chart. Reviewed and approved FAMILY SOCIOLOGIST notes Addendum: 01/26/19 at 0937 by CONY GÓMEZ PT,MG Amended: Links added.
--- NOTE | 2019-01-26 10:38 | NUR ---
*-* INSURANCE *-* ALL CLINICALS,REVIEWS HAVE BEEN FAXED TO: [facility] PLEASE FAX THE REVIEW /CLINICAL NCM: [place] P- [phone] X [facility] F- [phone]....
--- NOTE | 2019-01-26 11:25 | GI Progress Note ---
Assessment/Plan Problems: (1) Anemia ICD Codes: D64.9 - Anemia, unspecified SNOMED: 022800855 (2) Protein-calorie malnutrition, severe ICD Codes: E43 - Unspecified severe protein-calorie malnutrition SNOMED: 921230396, 166278132, 047834445 (3) Constipation ICD Codes: K59.00 - Constipation, unspecified SNOMED: 80023697 Status: stable Status Narrative Discussed with Dr. Mustafa. Assessment/Plan Pending final KUB report Hepatitis C positive, pending Hep C TMA constipation, resolved Patient is on a regular diet Bowel regimen >> patient is already on Colace, will add MiraLAX nightly Dulcolax as needed for severe constipation Outpatient GI procedures IV and p.o. hydration plus electrolyte correction Follow labs dc planning The patient was seen and examined at bedside and all new and available data was reviewed in the patients chart. I agree with the above findings, impression and plan. (Patient seen earlier today. Signature stamp does not reflect patient encounter time.). - Adrian Mustafa MD Subjective Subjective abdominal pain improved had multiple bowel movements yesterday Objective Last 24 Hour Vital Signs Date Time Temp Pulse Resp B/P (MAP) Pulse Ox O2 Delivery O2 Flow Rate FiO2 01/26/19 08:00 97.9 69 18 121/73 (89) 99 01/26/19 07:59 Nasal Cannula 3.0 32 01/26/19 07:59 98 Nasal Cannula 3.0 32 01/26/19 04:00 97.7 77 20 116/55 (75) 100 01/26/19 00:00 97.8 75 20 115/60 (78) 100 01/25/19 21:00 Nasal Cannula 2.0 Nasal Cannula 2.0 01/25/19 20:34 98 Nasal Cannula 3.0 32 01/25/19 20:34 Nasal Cannula 3.0 32 01/25/19 20:00 98.7 86 20 126/63 (84) 98 01/25/19 16:00 98.0 83 19 112/55 (74) 100 01/25/19 12:00 97.9 85 18 108/54 (72) 100 Intake and Output 01/25/19 01/26/19 19:00 07:00 Intake Total 240 ml Output Total 400 ml 200 ml Balance -160 ml -200 ml Intake Oral 240 ml Output Urine Total 400 ml 200 ml Laboratory Tests Test 01/26/19 05:49 White Blood Count 9.5 K/UL (4.8-10.8) Red Blood Count 3.58 M/UL (4.20-5.40) L Hemoglobin 9.8 G/DL (12.0-16.0) L Hematocrit 31.1 % (37.0-47.0) L Mean Corpuscular Volume 87 FL (80-99) Mean Corpuscular Hemoglobin 27.5 PG (27.0-31.0) Mean Corpuscular Hemoglobin Concent 31.6 G/DL (32.0-36.0) L Red Cell Distribution Width 17.6 % (11.6-14.8) H Platelet Count 267 K/UL (150-450) Mean Platelet Volume 5.9 FL (6.5-10.1) L Neutrophils (%) (Auto) 71.1 % (45.0-75.0) Lymphocytes (%) (Auto) 15.7 % (20.0-45.0) L Monocytes (%) (Auto) 6.9 % (1.0-10.0) Eosinophils (%) (Auto) 4.9 % (0.0-3.0) H Basophils (%) (Auto) 1.4 % (0.0-2.0) Sodium Level 138 MMOL/L (136-145) Potassium Level 4.0 MMOL/L (3.5-5.1) Chloride Level 101 MMOL/L (98-107) Carbon Dioxide Level 29 MMOL/L (21-32) Anion Gap 8 mmol/L (5-15) Blood Urea Nitrogen 16 mg/dL (7-18) Creatinine 0.7 MG/DL (0.55-1.30) Estimat Glomerular Filtration Rate mL/min (>60) Glucose Level 85 MG/DL (74-106) Calcium Level 9.7 MG/DL (8.5-10.1) Height (Feet): 5 Height (Inches): 6.00 Weight (Pounds): 110 General Appearance: WD/WN, no apparent distress, alert Cardiovascular: normal rate Respiratory/Chest: normal breath sounds, no respiratory distress Abdominal Exam: normal bowel sounds, non tender, soft Extremities: normal range of motion, non-tender Hamilton,Miya-Francisco Javier [employer] Jan 26, 2019 11:25
[2019-01-26 12:00] VITALS: BP 104/80
--- NOTE | 2019-01-26 12:12 | Pulmonology Progress Note ---
Assessment/Plan Problems: (1) Acute respiratory failure (2) COPD exacerbation (3) Pulmonary hypertension (4) Pulmonary fibrosis (5) Elevated troponin (6) Protein-calorie malnutrition, severe (7) Hypertension Assessment/Plan constipated, got enema feeling better sputum has Pseudomonas cxr better, 01/24 continue abx until sputum is available CT chest reviewed, pt has extensive fibrosis and chronic changes Echo reviewed, Grade one diastolic dysfunction trial of lidocaine inhalers and chronic Methadone to suppress dyspnea. ( it is helping her a lot) f/u cardiology recommendations Poor overall prognosis. med/surgery Subjective ROS Limited/Unobtainable: No Constitutional: Reports: no symptoms HEENT: Repors: no symptoms Allergies: Coded Allergies: PENICILLINS (Verified Allergy, Unknown, SWELLING EVERYWHERE, EVEN EYES PER PATIENT, 11/24/11) Objective Last 24 Hour Vital Signs Date Time Temp Pulse Resp B/P (MAP) Pulse Ox O2 Delivery O2 Flow Rate FiO2 01/26/19 09:00 Nasal Cannula 2.0 Nasal Cannula 2.0 01/26/19 08:00 97.9 69 18 121/73 (89) 99 01/26/19 07:59 Nasal Cannula 3.0 32 01/26/19 07:59 98 Nasal Cannula 3.0 32 01/26/19 04:00 97.7 77 20 116/55 (75) 100 01/26/19 00:00 97.8 75 20 115/60 (78) 100 01/25/19 21:00 Nasal Cannula 2.0 Nasal Cannula 2.0 01/25/19 20:34 98 Nasal Cannula 3.0 32 01/25/19 20:34 Nasal Cannula 3.0 32 01/25/19 20:00 98.7 86 20 126/63 (84) 98 01/25/19 16:00 98.0 83 19 112/55 (74) 100 Intake and Output 01/25/19 01/26/19 19:00 07:00 Intake Total 240 ml Output Total 400 ml 200 ml Balance -160 ml -200 ml Intake Oral 240 ml Output Urine Total 400 ml 200 ml Objective General Appearance: cachetic HEENT: normocephalic, atraumatic Respiratory/Chest: chest wall non-tender, normal breath sounds Cardiovascular: normal peripheral pulses, regular rhythm Abdomen: normal bowel sounds, soft, non tender Laboratory Tests 01/26/19 05:49: White Blood Count 9.5, Red Blood Count 3.58L, Hemoglobin 9.8L, Hematocrit 31.1L , Mean Corpuscular Volume 87, Mean Corpuscular Hemoglobin 27.5, Mean Corpuscular Hemoglobin Concent 31.6L, Red Cell Distribution Width 17.6H, Platelet Count 267, Mean Platelet Volume 5.9L, Neutrophils (%) (Auto) 71.1, Lymphocytes (%) (Auto) 15.7L, Monocytes (%) (Auto) 6.9, Eosinophils (%) (Auto) 4.9H, Basophils (%) (Auto) 1.4, Sodium Level 138, Potassium Level 4.0, Chloride Level 101, Carbon Dioxide Level 29, Anion Gap 8, Blood Urea Nitrogen 16, Creatinine 0.7, Estimat Glomerular Filtration Rate , Glucose Level 85, Calcium Level 9.7 Current Medications Medications (Trade) Dose Ordered Sig/Charly Route PRN Reason Start Time Stop Time Status Last Admin Dose Admin Albuterol/ Ipratropium (Albuterol/ Ipratropium) 3 ml Q4H PRN HHN Shortness of Breath 01/23/19 15:45 01/28/19 15:44 01/25/19 07:46 Aspirin (Ecotrin) 81 mg DAILY ORAL 01/22/19 09:00 02/18/19 08:59 01/26/19 09:33 Bisacodyl (Dulcolax) 10 mg BIDPRN PRN RECTAL Constipation 01/23/19 10:00 02/22/19 09:59 01/24/19 03:55 Dextrose (Dextrose 50%) 25 ml Q30M PRN IV Hypoglycemia 01/21/19 19:45 02/16/19 17:32 Dextrose (Dextrose 50%) 50 ml Q30M PRN IV Hypoglycemia 01/21/19 19:45 02/16/19 17:32 Docusate Sodium (Colace) 100 mg TWICE A DAY ORAL 01/23/19 10:00 02/22/19 09:59 01/26/19 09:33 Furosemide (Lasix) 40 mg DAILY ORAL 01/22/19 09:00 02/21/19 08:59 01/26/19 09:33 Heparin Sodium (Porcine) (Heparin 5000 units/ml) 5,000 units EVERY 12 HOURS SUBQ 01/21/19 21:00 02/16/19 20:59 01/26/19 09:34 Lidocaine (Xylocaine 1% MPF 5ml) 10 ml Q4H PRN HHN cough 01/21/19 19:13 02/18/19 19:12 Lorazepam (Ativan 2mg/ml 1ml) 0.5 mg Q4H PRN IV For Anxiety 01/23/19 15:15 01/28/19 19:12 01/24/19 03:56 Methadone HCl (Methadone HCl) 2.5 mg EVERY 12 HOURS ORAL 01/21/19 21:00 01/26/19 20:59 01/26/19 09:35 Mineral Oil (Fleet's Mineral Oil Enema) 133 ml DAILYPRN PRN RECTAL Constipation 01/24/19 09:30 02/23/19 09:29 01/24/19 15:15 Nitroglycerin (Ntg) 0.4 mg Q5M X 3 DOSES PRN SL Prn Chest Pain 01/21/19 19:15 02/16/19 17:33 Ondansetron HCl (Zofran) 4 mg Q6H PRN IVP Nausea & Vomiting 01/21/19 19:13 02/16/19 19:12 Polyethylene Glycol (Miralax) 17 gm BEDTIME ORAL 01/24/19 21:00 02/23/19 20:59 01/25/19 20:58 Potassium Chloride (K-Dur) 40 meq DAILY ORAL 01/25/19 11:00 02/24/19 10:59 01/26/19 09:33 Promethazine HCl/ Codeine (Phenergan with Codeine) 5 ml Q6H PRN ORAL cough 01/21/19 19:14 02/16/19 19:13 Quetiapine Fumarate (SEROquel) 25 mg Q12HR ORAL 01/21/19 21:00 02/17/19 20:59 01/26/19 09:32 Temazepam (Restoril) 15 mg HSPRN PRN ORAL Insomnia 01/23/19 21:00 01/28/19 20:59 01/24/19 22:51 Theophylline (Jimmy-Dur) 100 mg EVERY 12 HOURS ORAL 01/21/19 21:00 02/16/19 20:59 01/26/19 09:33 Jersey Chadwick MD Jan 26, 2019 12:12
--- NOTE | 2019-01-26 12:48 | Infectious Diseases Prog Note ---
Assessment/Plan Assessment/Plan Assessment: Probable Aspiration PNA vs pneumonitis, sp Rx -sp cx PsA (R Levo/Cipro; otherwise S including Aztreonam) Pneumomediastinum-suspected to rupture R side paratracheal bleb -01/25 CXR: Suspected interstitial disease. This may be chronic due to fibrosis. Pneumomediastinum. -01/20 CXR: Increasing bilateral parenchymal opacities, likely reflecting increasing edema or infiltrate superimposed on pre-existing chronic opacities. Central mediastinal lucency, likely reflects pneumomediastinum described on recent chest CT -CTA chest: Negative for acute pulmonary embolus or other acute thoracic vascular pathology. Pneumomediastinum. Suspect due to a ruptured right-sided medial bleb. Evidence of extensive chronic pulmonary parenchymal interstitial disease, with areas of honeycombing and bronchiectasis. No definite acute pulmonary parenchymal process. Ectatic main and left main pulmonary arteries, suggestive of pulmonary arterial hypertension. Bullae and subpleural blebs, may be related to the interstitial fibrotic process or could represent COPD changes -CXR: Cardiomegaly. Bilateral extensive interstitial and airspace opacities, slightly increased from but similar in distribution to prior study of 2017. Suspect component of chronic interstitial fibrosis with superimposed acute edema or infiltrates -influenza sc neg Afebrile No leukocytosis AST elevation; improving -HIV ab sc neg -Hep C+, VL neg; cleared infection DM HTN RI CAD CHF cervical radiculopathy CVA asthma COPD /Emphysema sp Bilateral hip replacement [facility] resident Plan: -Continue to monitor off abx -01/25 SP Aztreonam #7 -01/24 SP Azithromycin #5 -01/17 SP Ceftriaxone x1 -f/u cx -monitor CBC/CMP, temperatures -aspiration precautions Thank you for this consultation. Will continue to follow along with you. Discussed with RN. Subjective Allergies: Coded Allergies: PENICILLINS (Verified Allergy, Unknown, SWELLING EVERYWHERE, EVEN EYES PER PATIENT, 11/24/11) Subjective afebrile at 2l NC no leukocytosis AST improving Hep C VL not detected Objective Vital Signs Last 24 Hour Vital Signs Date Time Temp Pulse Resp B/P (MAP) Pulse Ox O2 Delivery O2 Flow Rate FiO2 01/26/19 09:00 Nasal Cannula 2.0 Nasal Cannula 2.0 01/26/19 08:00 97.9 69 18 121/73 (89) 99 01/26/19 07:59 Nasal Cannula 3.0 32 01/26/19 07:59 98 Nasal Cannula 3.0 32 01/26/19 04:00 97.7 77 20 116/55 (75) 100 01/26/19 00:00 97.8 75 20 115/60 (78) 100 01/25/19 21:00 Nasal Cannula 2.0 Nasal Cannula 2.0 01/25/19 20:34 98 Nasal Cannula 3.0 32 01/25/19 20:34 Nasal Cannula 3.0 32 01/25/19 20:00 98.7 86 20 126/63 (84) 98 01/25/19 16:00 98.0 83 19 112/55 (74) 100 Height (Feet): 5 Height (Inches): 6.00 Weight (Pounds): 110 Objective GENERAL: Calm in bed, O2 NC, slight short of breath. Oriented x2, no acute distress. CARDIOVASCULAR: No murmurs. LUNGS: Poor air exchange. ABDOMEN: Bowel sounds distant. EXTREMITIES: No cyanosis, clubbing, or edema. NEUROLOGIC: The patient moves all extremities, slightly weak. Laboratory Tests Test 01/26/19 05:49 White Blood Count 9.5 K/UL (4.8-10.8) Red Blood Count 3.58 M/UL (4.20-5.40) L Hemoglobin 9.8 G/DL (12.0-16.0) L Hematocrit 31.1 % (37.0-47.0) L Mean Corpuscular Volume 87 FL (80-99) Mean Corpuscular Hemoglobin 27.5 PG (27.0-31.0) Mean Corpuscular Hemoglobin Concent 31.6 G/DL (32.0-36.0) L Red Cell Distribution Width 17.6 % (11.6-14.8) H Platelet Count 267 K/UL (150-450) Mean Platelet Volume 5.9 FL (6.5-10.1) L Neutrophils (%) (Auto) 71.1 % (45.0-75.0) Lymphocytes (%) (Auto) 15.7 % (20.0-45.0) L Monocytes (%) (Auto) 6.9 % (1.0-10.0) Eosinophils (%) (Auto) 4.9 % (0.0-3.0) H Basophils (%) (Auto) 1.4 % (0.0-2.0) Sodium Level 138 MMOL/L (136-145) Potassium Level 4.0 MMOL/L (3.5-5.1) Chloride Level 101 MMOL/L (98-107) Carbon Dioxide Level 29 MMOL/L (21-32) Anion Gap 8 mmol/L (5-15) Blood Urea Nitrogen 16 mg/dL (7-18) Creatinine 0.7 MG/DL (0.55-1.30) Estimat Glomerular Filtration Rate mL/min (>60) Glucose Level 85 MG/DL (74-106) Calcium Level 9.7 MG/DL (8.5-10.1) Current Medications Medications (Trade) Dose Ordered Sig/Charly Route PRN Reason Start Time Stop Time Status Last Admin Dose Admin Albuterol/ Ipratropium (Albuterol/ Ipratropium) 3 ml Q4H PRN HHN Shortness of Breath 01/23/19 15:45 01/28/19 15:44 01/25/19 07:46 Aspirin (Ecotrin) 81 mg DAILY ORAL 01/22/19 09:00 02/18/19 08:59 01/26/19 09:33 Bisacodyl (Dulcolax) 10 mg BIDPRN PRN RECTAL Constipation 01/23/19 10:00 02/22/19 09:59 01/24/19 03:55 Dextrose (Dextrose 50%) 25 ml Q30M PRN IV Hypoglycemia 01/21/19 19:45 02/16/19 17:32 Dextrose (Dextrose 50%) 50 ml Q30M PRN IV Hypoglycemia 01/21/19 19:45 02/16/19 17:32 Docusate Sodium (Colace) 100 mg TWICE A DAY ORAL 01/23/19 10:00 02/22/19 09:59 01/26/19 09:33 Furosemide (Lasix) 40 mg DAILY ORAL 01/22/19 09:00 02/21/19 08:59 01/26/19 09:33 Heparin Sodium (Porcine) (Heparin 5000 units/ml) 5,000 units EVERY 12 HOURS SUBQ 01/21/19 21:00 02/16/19 20:59 01/26/19 09:34 Lidocaine (Xylocaine 1% MPF 5ml) 10 ml Q4H PRN HHN cough 01/21/19 19:13 02/18/19 19:12 Lorazepam (Ativan 2mg/ml 1ml) 0.5 mg Q4H PRN IV For Anxiety 01/23/19 15:15 01/28/19 19:12 01/24/19 03:56 Methadone HCl (Methadone HCl) 2.5 mg EVERY 12 HOURS ORAL 01/21/19 21:00 01/26/19 20:59 01/26/19 09:35 Mineral Oil (Fleet's Mineral Oil Enema) 133 ml DAILYPRN PRN RECTAL Constipation 01/24/19 09:30 02/23/19 09:29 01/24/19 15:15 Nitroglycerin (Ntg) 0.4 mg Q5M X 3 DOSES PRN SL Prn Chest Pain 01/21/19 19:15 02/16/19 17:33 Ondansetron HCl (Zofran) 4 mg Q6H PRN IVP Nausea & Vomiting 01/21/19 19:13 02/16/19 19:12 Polyethylene Glycol (Miralax) 17 gm BEDTIME ORAL 01/24/19 21:00 02/23/19 20:59 01/25/19 20:58 Potassium Chloride (K-Dur) 40 meq DAILY ORAL 01/25/19 11:00 02/24/19 10:59 01/26/19 09:33 Promethazine HCl/ Codeine (Phenergan with Codeine) 5 ml Q6H PRN ORAL cough 01/21/19 19:14 02/16/19 19:13 Quetiapine Fumarate (SEROquel) 25 mg Q12HR ORAL 01/21/19 21:00 02/17/19 20:59 01/26/19 09:32 Temazepam (Restoril) 15 mg HSPRN PRN ORAL Insomnia 01/23/19 21:00 01/28/19 20:59 01/24/19 22:51 Theophylline (Jimmy-Dur) 100 mg EVERY 12 HOURS ORAL 01/21/19 21:00 02/16/19 20:59 01/26/19 09:33 Katt Ken M.D. Jan 26, 2019 12:47
--- NOTE | 2019-01-26 14:50 | General Progress Note ---
Assessment/Plan Problem List: (1) UTI (urinary tract infection) ICD Codes: N39.0 - Urinary tract infection, site not specified SNOMED: 23247306 (2) Anemia ICD Codes: D64.9 - Anemia, unspecified SNOMED: 809166181 (3) Arthritis ICD Codes: M19.90 - Unspecified osteoarthritis, unspecified site SNOMED: 3986730 (4) Hypertension ICD Codes: I10 - Essential (primary) hypertension SNOMED: 95067056 (5) COPD exacerbation ICD Codes: J44.1 - Chronic obstructive pulmonary disease with (acute) exacerbation SNOMED: 770530247, 874553774, 912823429 (6) CHF exacerbation ICD Codes: I50.9 - Heart failure, unspecified SNOMED: 36382947, 397411242, 301264050 (7) Cervical radiculopathy ICD Codes: M54.12 - Radiculopathy, cervical region SNOMED: 22475134 Status: unchanged Assessment/Plan o2 pulm tx abt pain control pt diet sx eval cbc bmp am dc to snf if clear Subjective Allergies: Coded Allergies: PENICILLINS (Verified Allergy, Unknown, SWELLING EVERYWHERE, EVEN EYES PER PATIENT, 11/24/11) All Systems: reviewed and negative except above Subjective o2nc sleepy in bed Objective Last 24 Hour Vital Signs Date Time Temp Pulse Resp B/P (MAP) Pulse Ox O2 Delivery O2 Flow Rate FiO2 01/26/19 12:00 97.7 54 18 104/80 (88) 97 01/26/19 09:00 Nasal Cannula 2.0 Nasal Cannula 2.0 01/26/19 08:00 97.9 69 18 121/73 (89) 99 01/26/19 07:59 Nasal Cannula 3.0 32 01/26/19 07:59 98 Nasal Cannula 3.0 32 01/26/19 04:00 97.7 77 20 116/55 (75) 100 01/26/19 00:00 97.8 75 20 115/60 (78) 100 01/25/19 21:00 Nasal Cannula 2.0 Nasal Cannula 2.0 01/25/19 20:34 98 Nasal Cannula 3.0 32 01/25/19 20:34 Nasal Cannula 3.0 32 01/25/19 20:00 98.7 86 20 126/63 (84) 98 01/25/19 16:00 98.0 83 19 112/55 (74) 100 Intake and Output 01/25/19 01/26/19 18:59 06:59 Intake Total 240 ml Output Total 400 ml 200 ml Balance -160 ml -200 ml Intake Oral 240 ml Output Urine Total 400 ml 200 ml Laboratory Tests 01/26/19 05:49: White Blood Count 9.5, Red Blood Count 3.58L, Hemoglobin 9.8L, Hematocrit 31.1L , Mean Corpuscular Volume 87, Mean Corpuscular Hemoglobin 27.5, Mean Corpuscular Hemoglobin Concent 31.6L, Red Cell Distribution Width 17.6H, Platelet Count 267, Mean Platelet Volume 5.9L, Neutrophils (%) (Auto) 71.1, Lymphocytes (%) (Auto) 15.7L, Monocytes (%) (Auto) 6.9, Eosinophils (%) (Auto) 4.9H, Basophils (%) (Auto) 1.4, Sodium Level 138, Potassium Level 4.0, Chloride Level 101, Carbon Dioxide Level 29, Anion Gap 8, Blood Urea Nitrogen 16, Creatinine 0.7, Estimat Glomerular Filtration Rate , Glucose Level 85, Calcium Level 9.7 Height (Feet): 5 Height (Inches): 6.00 Weight (Pounds): 110 General Appearance: lethargic EENT: normal ENT inspection Neck: normal alignment Cardiovascular: normal peripheral pulses, normal rate, regular rhythm Respiratory/Chest: chest wall non-tender, decreased breath sounds Abdomen: normal bowel sounds, non tender, soft Extremities: normal inspection Edema: no edema noted Arm (L), no edema noted Arm (R), no edema noted Leg (L), no edema noted Leg (R), no edema noted Pedal (L), no edema noted Pedal (R), no edema noted Generalized Neurologic: motor weakness Skin: normal pigmentation, warm/dry Roi Lema DO Jan 26, 2019 14:50
--- NOTE | 2019-01-26 15:06 | NUR ---
CASE MANAGEMENT:REVIEW 01/26/19 SI: COPD. CHF. UTI 97.9 69 18 121/73 99% ON 2L/NC H/H-9.8/31.1 IS: K-DUR PO QD ASA PO QD LASIX PO QD HEPARIN SQ Q12 METHADONE PO Q12 SEROQUEL PO Q12 THEOPHYLLINE PO Q12 : MED/SURG STATUS 3 EAST DCP: PATIENT IS FROM [facility]: PATIENT HAD A DISCHARGE ORDER SINCE YESTERDAY. [facility] DID NOT HAVE ANY FEMALE BEDS SO PATIENT WAS UNABLE TO RETURN TO THAT SNF. DISCUSSED ALTERNATIVE PLACEMENT WITH OMI ALVARENGA @ [facility] YESTERDAY MORNING PER [facility] HIS GLUE JOINTER FEEDER WILL HELP FIND ALTERNATIVE PLACEMENT FOR THIS PATIENT TODAY 01/26/19 ~ PATIENT IS STILL HERE AT [facility]. MESSAGE LEFT FOR COLETTE REGARDING PLACEMENT..WAITING FOR A RETURN PHONE CALL
--- NOTE | 2019-01-26 15:23 | NUR ---
DISCHARGE PLANNING [facility] DO[facility] NOT HAVE A BED FOR THIS PATIENT TO RETURN TO [facility], [facility], REGARDING PLACEMENT WAITING FOR A RETURN CALL
[2019-01-26 16:00] VITALS: BP 121/68
--- NOTE | 2019-01-26 17:06 | Cardiac Electrophysiology PN ---
Assessment/Plan Assessment/Plan 1. Type 2 NSTEMI. No CP or SOB. EF normal . ECG incomplete LBBB, LVH. On aspirin. Off Beta ehsan for asthma on steroids 2. CHF due to diastolic dysfunction with BNP >1500. On Lasix 40 mg po daily 3. Hypertension. 4. COPD exacerbation on Abx and severe pulmonary HTN 5. Anemia. 6. UTI 8. Osteoarthritis. 9. Cervical radiculopathy. 10. Constipation DW RN Subjective Subjective Comfortable in NAD. No CP. Off tele Objective Last 24 Hour Vital Signs Date Time Temp Pulse Resp B/P (MAP) Pulse Ox O2 Delivery O2 Flow Rate FiO2 01/26/19 16:00 97.5 97 17 121/68 (85) 96 01/26/19 12:00 97.7 54 18 104/80 (88) 97 01/26/19 09:00 Nasal Cannula 2.0 Nasal Cannula 2.0 01/26/19 08:00 97.9 69 18 121/73 (89) 99 01/26/19 07:59 Nasal Cannula 3.0 32 01/26/19 07:59 98 Nasal Cannula 3.0 32 01/26/19 04:00 97.7 77 20 116/55 (75) 100 01/26/19 00:00 97.8 75 20 115/60 (78) 100 01/25/19 21:00 Nasal Cannula 2.0 Nasal Cannula 2.0 01/25/19 20:34 98 Nasal Cannula 3.0 32 01/25/19 20:34 Nasal Cannula 3.0 32 01/25/19 20:00 98.7 86 20 126/63 (84) 98 Intake and Output 01/25/19 01/26/19 18:59 06:59 Intake Total 240 ml Output Total 400 ml 200 ml Balance -160 ml -200 ml Intake Oral 240 ml Output Urine Total 400 ml 200 ml Laboratory Tests Test 01/26/19 05:49 White Blood Count 9.5 K/UL (4.8-10.8) Red Blood Count 3.58 M/UL (4.20-5.40) L Hemoglobin 9.8 G/DL (12.0-16.0) L Hematocrit 31.1 % (37.0-47.0) L Mean Corpuscular Volume 87 FL (80-99) Mean Corpuscular Hemoglobin 27.5 PG (27.0-31.0) Mean Corpuscular Hemoglobin Concent 31.6 G/DL (32.0-36.0) L Red Cell Distribution Width 17.6 % (11.6-14.8) H Platelet Count 267 K/UL (150-450) Mean Platelet Volume 5.9 FL (6.5-10.1) L Neutrophils (%) (Auto) 71.1 % (45.0-75.0) Lymphocytes (%) (Auto) 15.7 % (20.0-45.0) L Monocytes (%) (Auto) 6.9 % (1.0-10.0) Eosinophils (%) (Auto) 4.9 % (0.0-3.0) H Basophils (%) (Auto) 1.4 % (0.0-2.0) Sodium Level 138 MMOL/L (136-145) Potassium Level 4.0 MMOL/L (3.5-5.1) Chloride Level 101 MMOL/L (98-107) Carbon Dioxide Level 29 MMOL/L (21-32) Anion Gap 8 mmol/L (5-15) Blood Urea Nitrogen 16 mg/dL (7-18) Creatinine 0.7 MG/DL (0.55-1.30) Estimat Glomerular Filtration Rate mL/min (>60) Glucose Level 85 MG/DL (74-106) Calcium Level 9.7 MG/DL (8.5-10.1) Objective HEENT: No JVD Respiratory/Chest: Rhonchi Cardiovascular/Chest: normal peripheral pulses, normal rate, regular rhythm Abdomen: normal bowel sounds, non tender, soft, no organomegaly Extremities: No edema Renzo Burgess MD Jan 26, 2019 17:06
--- NOTE | 2019-01-26 19:13 | NUR ---
HAND-OFF: Report given to Nate RN. Patient is in stable condition.
--- NOTE | 2019-01-26 19:50 | NUR ---
NURSE NOTES: Pt is in bed, awake and alert. No acute distress noted.bed low in position,side rails up and call light within reach.
[2019-01-26 20:00] VITALS: BP 143/67
[2019-01-26] MEDS: Miralax 17gm pkt ORAL SCH (21:14)
[2019-01-27] VITALS: BP 117/77
[2019-01-27 04:00] VITALS: BP 121/72
--- NOTE | 2019-01-27 04:30 | NUR ---
NURSE NOTES: Pt is in bed, asleep. No acute distress noted. No SOB.
--- NOTE | 2019-01-27 07:30 | NUR ---
HAND-OFF: Report given to Darnell Lowe RN.
--- NOTE | 2019-01-27 07:35 | NUR ---
NURSE NOTES: Patient lying in bed awake. No complain of pain or distress at this time. On O2 @ 2L via NC. Skin intact and dry. IV dressing intact and dry. Bed lowest position. Call light within reach. Will continue to monitor.
[2019-01-27 08:00] VITALS: BP 121/68
[2019-01-27 08:11] LABS: EOSINOPHILS % (AUTO) 6.9 % (0.0-3.0); HEMATOCRIT 31.7 % (37.0-47.0); HEMOGLOBIN 9.9 G/DL (12.0-16.0); LYMPHOCYTES % (AUTO) 20.4 % (20.0-45.0); MEAN CORPUSCULAR VOLUME 87 FL (80-99); NEUTROPHILS % (AUTO) 60.8 % (45.0-75.0); PLATELET COUNT 284 K/UL (150-450); RED BLOOD COUNT 3.63 M/UL (4.20-5.40); RED CELL DISTRIBUTION WIDTH 18.4 % (11.6-14.8); WHITE BLOOD COUNT 7.2 K/UL (4.8-10.8)
[2019-01-27 08:37] LABS: ANION GAP 8 mmol/L (5-15); BLOOD UREA NITROGEN 16 mg/dL (7-18); CALCIUM 9.6 MG/DL (8.5-10.1); CARBON DIOXIDE 28 MMOL/L (21-32); CHLORIDE 100 MMOL/L (98-107); CREATININE 0.7 MG/DL (0.55-1.30); POTASSIUM 4.1 MMOL/L (3.5-5.1); SODIUM 136 MMOL/L (136-145)
[2019-01-27] MEDS: Furosemide 40mg tab ORAL SCH (08:51)
[2019-01-27] MEDS: Docusate 100mg cap ORAL SCH ×2 (08:51→17:42)
[2019-01-27] MEDS: Theophylline ER 100mg ORAL SCH ×2 (08:51→20:40)
[2019-01-27] MEDS: Aspirin EC 81mg tab ORAL SCH (08:51)
[2019-01-27] MEDS: Heparin 5000 units/ml inj SUBQ SCH ×2 (08:52→20:41)
--- NOTE | 2019-01-27 10:47 | General Progress Note ---
Assessment/Plan Problem List: (1) Anemia ICD Codes: D64.9 - Anemia, unspecified SNOMED: 339475138 (2) Protein-calorie malnutrition, severe ICD Codes: E43 - Unspecified severe protein-calorie malnutrition SNOMED: 743155573, 619404032, 103337693 (3) Constipation ICD Codes: K59.00 - Constipation, unspecified SNOMED: 14486723 (4) Hypertension ICD Codes: I10 - Essential (primary) hypertension SNOMED: 72145042 (5) Cervical radiculopathy ICD Codes: M54.12 - Radiculopathy, cervical region SNOMED: 24756926 (6) COPD exacerbation ICD Codes: J44.1 - Chronic obstructive pulmonary disease with (acute) exacerbation SNOMED: 935882649, 288226096, 370229773 (7) CHF exacerbation ICD Codes: I50.9 - Heart failure, unspecified SNOMED: 01161728, 041296534, 956725715 Assessment/Plan hep C viral load neg bowel regimen given neg stool ob hold in patient GI procedure fu labs Subjective ROS Limited/Unobtainable: Yes Allergies: Coded Allergies: PENICILLINS (Verified Allergy, Unknown, SWELLING EVERYWHERE, EVEN EYES PER PATIENT, 11/24/11) Objective Last 24 Hour Vital Signs Date Time Temp Pulse Resp B/P (MAP) Pulse Ox O2 Delivery O2 Flow Rate FiO2 01/27/19 09:00 Nasal Cannula 2.0 Nasal Cannula 2.0 01/27/19 08:00 98.7 92 18 121/68 (85) 100 01/27/19 04:00 98.1 79 18 121/72 (88) 96 01/27/19 00:00 97.8 80 18 117/77 (90) 100 01/26/19 21:00 Nasal Cannula 2.0 Nasal Cannula 2.0 01/26/19 20:11 Nasal Cannula 3.0 32 01/26/19 20:08 99 Nasal Cannula 3.0 32 01/26/19 20:00 98.6 74 18 143/67 (92) 94 01/26/19 16:00 97.5 97 17 121/68 (85) 96 01/26/19 12:00 97.7 54 18 104/80 (88) 97 Intake and Output 01/26/19 01/27/19 19:00 07:00 Intake Total 550 ml 240 ml Output Total 750 ml Balance 550 ml -510 ml Intake Oral 240 ml Other 550 ml Output Urine Total 750 ml # Voids 1 Laboratory Tests 01/27/19 06:02: White Blood Count 7.2, Red Blood Count 3.63L, Hemoglobin 9.9L, Hematocrit 31.7L , Mean Corpuscular Volume 87, Mean Corpuscular Hemoglobin 27.3, Mean Corpuscular Hemoglobin Concent 31.4L, Red Cell Distribution Width 18.4H, Platelet Count 284, Mean Platelet Volume 6.0L, Neutrophils (%) (Auto) 60.8, Lymphocytes (%) (Auto) 20.4, Monocytes (%) (Auto) 11.0H, Eosinophils (%) (Auto) 6.9H, Basophils (%) (Auto) 1.0, Sodium Level 136, Potassium Level 4.1, Chloride Level 100, Carbon Dioxide Level 28, Anion Gap 8, Blood Urea Nitrogen 16, Creatinine 0.7, Estimat Glomerular Filtration Rate , Glucose Level 77, Calcium Level 9.6 Height (Feet): 5 Height (Inches): 6.00 Weight (Pounds): 110 General Appearance: alert EENT: normal ENT inspection Neck: supple Cardiovascular: normal rate Respiratory/Chest: decreased breath sounds Abdomen: normal bowel sounds, non tender, soft Extremities: non-tender Adrian Mustafa MD Jan 27, 2019 10:47
[2019-01-27 12:00] VITALS: BP 107/66
--- NOTE | 2019-01-27 12:49 | NUR ---
*-* INSURANCE *-* ALL CLINICALS,REVIEWS HAVE BEEN FAXED TO: [facility] PLEASE FAX THE REVIEW /CLINICAL NCM: [place] P- [phone] X [facility] F- [phone]....
--- NOTE | 2019-01-27 12:50 | NUR ---
NURSE NOTES: Spoke to regarding discharge. Patient cleared to discharge Cardiology () standpoint. Order read back and carried out.
--- NOTE | 2019-01-27 12:59 | Pulmonology Progress Note ---
Assessment/Plan Problems: (1) Acute respiratory failure (2) COPD exacerbation (3) Pulmonary hypertension (4) Pulmonary fibrosis (5) Elevated troponin (6) Protein-calorie malnutrition, severe (7) Hypertension Assessment/Plan still constipated feeling better sputum has Pseudomonas cxr better, 01/24 continue abx until sputum is available CT chest reviewed, pt has extensive fibrosis and chronic changes Echo reviewed, Grade one diastolic dysfunction trial of lidocaine inhalers and chronic Methadone to suppress dyspnea. ( it is helping her a lot) f/u cardiology recommendations Poor overall prognosis. med/surgery Subjective ROS Limited/Unobtainable: No Constitutional: Reports: no symptoms HEENT: Repors: no symptoms Allergies: Coded Allergies: PENICILLINS (Verified Allergy, Unknown, SWELLING EVERYWHERE, EVEN EYES PER PATIENT, 11/24/11) Objective Last 24 Hour Vital Signs Date Time Temp Pulse Resp B/P (MAP) Pulse Ox O2 Delivery O2 Flow Rate FiO2 01/27/19 12:00 98.9 66 17 107/66 (80) 96 01/27/19 11:04 95 Nasal Cannula 3.0 32 01/27/19 11:04 86 16 Nasal Cannula 3.0 32 01/27/19 11:04 Nasal Cannula 3.0 32 01/27/19 09:00 Nasal Cannula 2.0 Nasal Cannula 2.0 01/27/19 08:00 98.7 92 18 121/68 (85) 100 01/27/19 04:00 98.1 79 18 121/72 (88) 96 01/27/19 00:00 97.8 80 18 117/77 (90) 100 01/26/19 21:00 Nasal Cannula 2.0 Nasal Cannula 2.0 01/26/19 20:11 Nasal Cannula 3.0 32 01/26/19 20:08 99 Nasal Cannula 3.0 32 01/26/19 20:00 98.6 74 18 143/67 (92) 94 01/26/19 16:00 97.5 97 17 121/68 (85) 96 Intake and Output 01/26/19 01/27/19 19:00 07:00 Intake Total 550 ml 240 ml Output Total 750 ml Balance 550 ml -510 ml Intake Oral 240 ml Other 550 ml Output Urine Total 750 ml # Voids 1 Objective General Appearance: cachetic HEENT: normocephalic, atraumatic Respiratory/Chest: chest wall non-tender, normal breath sounds Cardiovascular: normal peripheral pulses, regular rhythm Abdomen: normal bowel sounds, soft, non tender Laboratory Tests 01/27/19 06:02: White Blood Count 7.2, Red Blood Count 3.63L, Hemoglobin 9.9L, Hematocrit 31.7L , Mean Corpuscular Volume 87, Mean Corpuscular Hemoglobin 27.3, Mean Corpuscular Hemoglobin Concent 31.4L, Red Cell Distribution Width 18.4H, Platelet Count 284, Mean Platelet Volume 6.0L, Neutrophils (%) (Auto) 60.8, Lymphocytes (%) (Auto) 20.4, Monocytes (%) (Auto) 11.0H, Eosinophils (%) (Auto) 6.9H, Basophils (%) (Auto) 1.0, Sodium Level 136, Potassium Level 4.1, Chloride Level 100, Carbon Dioxide Level 28, Anion Gap 8, Blood Urea Nitrogen 16, Creatinine 0.7, Estimat Glomerular Filtration Rate , Glucose Level 77, Calcium Level 9.6 Current Medications Medications (Trade) Dose Ordered Sig/Charly Route PRN Reason Start Time Stop Time Status Last Admin Dose Admin Albuterol/ Ipratropium (Albuterol/ Ipratropium) 3 ml Q4H PRN HHN Shortness of Breath 01/27/19 13:00 02/01/19 12:59 Aspirin (Ecotrin) 81 mg DAILY ORAL 01/22/19 09:00 02/18/19 08:59 01/27/19 08:51 Bisacodyl (Dulcolax) 10 mg BIDPRN PRN RECTAL Constipation 01/23/19 10:00 02/22/19 09:59 01/27/19 10:30 Dextrose (Dextrose 50%) 25 ml Q30M PRN IV Hypoglycemia 01/21/19 19:45 02/16/19 17:32 Dextrose (Dextrose 50%) 50 ml Q30M PRN IV Hypoglycemia 01/21/19 19:45 02/16/19 17:32 Docusate Sodium (Colace) 100 mg TWICE A DAY ORAL 01/23/19 10:00 02/22/19 09:59 01/27/19 08:51 Furosemide (Lasix) 40 mg DAILY ORAL 01/22/19 09:00 02/21/19 08:59 01/27/19 08:51 Heparin Sodium (Porcine) (Heparin 5000 units/ml) 5,000 units EVERY 12 HOURS SUBQ 01/21/19 21:00 02/16/19 20:59 01/27/19 08:52 Lidocaine (Xylocaine 1% MPF 5ml) 10 ml Q4H PRN HHN cough 01/21/19 19:13 02/18/19 19:12 Lorazepam (Ativan 2mg/ml 1ml) 0.5 mg Q4H PRN IV For Anxiety 01/27/19 13:00 02/01/19 12:59 Mineral Oil (Fleet's Mineral Oil Enema) 133 ml DAILYPRN PRN RECTAL Constipation 01/24/19 09:30 02/23/19 09:29 01/24/19 15:15 Nitroglycerin (Ntg) 0.4 mg Q5M X 3 DOSES PRN SL Prn Chest Pain 01/21/19 19:15 02/16/19 17:33 Ondansetron HCl (Zofran) 4 mg Q6H PRN IVP Nausea & Vomiting 01/21/19 19:13 02/16/19 19:12 Polyethylene Glycol (Miralax) 17 gm BEDTIME ORAL 01/24/19 21:00 02/23/19 20:59 01/26/19 21:14 Potassium Chloride (K-Dur) 40 meq DAILY ORAL 01/25/19 11:00 02/24/19 10:59 01/27/19 08:51 Promethazine HCl/ Codeine (Phenergan with Codeine) 5 ml Q6H PRN ORAL cough 01/21/19 19:14 02/16/19 19:13 Quetiapine Fumarate (SEROquel) 25 mg Q12HR ORAL 01/21/19 21:00 02/17/19 20:59 01/27/19 08:51 Temazepam (Restoril) 15 mg HSPRN PRN ORAL Insomnia 01/27/19 12:45 02/01/19 12:44 Theophylline (Jimmy-Dur) 100 mg EVERY 12 HOURS ORAL 01/21/19 21:00 02/16/19 20:59 01/27/19 08:51 Jersey Chadwick MD Jan 27, 2019 12:59
--- NOTE | 2019-01-27 13:00 | Cardiac Electrophysiology PN ---
Assessment/Plan Assessment/Plan 1. Type 2 NSTEMI. No CP or SOB. EF normal . ECG incomplete LBBB, LVH. On aspirin. Off Beta ehsan for asthma on steroids 2. CHF due to diastolic dysfunction with BNP >1500. On Lasix 40 mg po daily 3. Hypertension. 4. COPD exacerbation on Abx and severe pulmonary HTN 5. Anemia. 6. UTI 8. Osteoarthritis. 9. Cervical radiculopathy. 10. Constipation DW RN Subjective Subjective Comfortable in NAD. No CP or SOB. Has constipation. Objective Last 24 Hour Vital Signs Date Time Temp Pulse Resp B/P (MAP) Pulse Ox O2 Delivery O2 Flow Rate FiO2 01/27/19 12:00 98.9 66 17 107/66 (80) 96 01/27/19 11:04 95 Nasal Cannula 3.0 32 01/27/19 11:04 86 16 Nasal Cannula 3.0 32 01/27/19 11:04 Nasal Cannula 3.0 32 01/27/19 09:00 Nasal Cannula 2.0 Nasal Cannula 2.0 01/27/19 08:00 98.7 92 18 121/68 (85) 100 01/27/19 04:00 98.1 79 18 121/72 (88) 96 01/27/19 00:00 97.8 80 18 117/77 (90) 100 01/26/19 21:00 Nasal Cannula 2.0 Nasal Cannula 2.0 01/26/19 20:11 Nasal Cannula 3.0 32 01/26/19 20:08 99 Nasal Cannula 3.0 32 01/26/19 20:00 98.6 74 18 143/67 (92) 94 01/26/19 16:00 97.5 97 17 121/68 (85) 96 Intake and Output 01/26/19 01/27/19 19:00 07:00 Intake Total 550 ml 240 ml Output Total 750 ml Balance 550 ml -510 ml Intake Oral 240 ml Other 550 ml Output Urine Total 750 ml # Voids 1 Laboratory Tests Test 01/27/19 06:02 White Blood Count 7.2 K/UL (4.8-10.8) Red Blood Count 3.63 M/UL (4.20-5.40) L Hemoglobin 9.9 G/DL (12.0-16.0) L Hematocrit 31.7 % (37.0-47.0) L Mean Corpuscular Volume 87 FL (80-99) Mean Corpuscular Hemoglobin 27.3 PG (27.0-31.0) Mean Corpuscular Hemoglobin Concent 31.4 G/DL (32.0-36.0) L Red Cell Distribution Width 18.4 % (11.6-14.8) H Platelet Count 284 K/UL (150-450) Mean Platelet Volume 6.0 FL (6.5-10.1) L Neutrophils (%) (Auto) 60.8 % (45.0-75.0) Lymphocytes (%) (Auto) 20.4 % (20.0-45.0) Monocytes (%) (Auto) 11.0 % (1.0-10.0) H Eosinophils (%) (Auto) 6.9 % (0.0-3.0) H Basophils (%) (Auto) 1.0 % (0.0-2.0) Sodium Level 136 MMOL/L (136-145) Potassium Level 4.1 MMOL/L (3.5-5.1) Chloride Level 100 MMOL/L (98-107) Carbon Dioxide Level 28 MMOL/L (21-32) Anion Gap 8 mmol/L (5-15) Blood Urea Nitrogen 16 mg/dL (7-18) Creatinine 0.7 MG/DL (0.55-1.30) Estimat Glomerular Filtration Rate mL/min (>60) Glucose Level 77 MG/DL (74-106) Calcium Level 9.6 MG/DL (8.5-10.1) Objective HEENT: No JVD Respiratory/Chest: Rhonchi Cardiovascular/Chest: Normal peripheral pulses, normal rate, regular rhythm Abdomen: normal bowel sounds, non tender, soft, no organomegaly Extremities: No edema Renzo Burgess MD Jan 27, 2019 13:00
--- NOTE | 2019-01-27 13:22 | NUR ---
ST NOTE: ST WEEKLY AND SWALLOW STATUS: ST WEEKLY: PT PARTIALLY MET PO INTAKE GOALS. NURSING STAFF MET ASPIRATION PRECAUTIONS GOALS. PT IS IMPROVING. CONTINUE SKILLED ST SERVICE. CURRENT STATUS: PT SEEN AT THE EDGE OF BED DURING LUNCH. PT ALERT, COOPERATIVE, FOLLOWS DIRECTIONS. PT WITH NC(3L). GIVEN PO TRIALS: THIN([id number] SIPS) PT WAS ABLE TO TOLERATE IT WITHOUT OVERT S/S OF ASPIRATION. EDUCATED AND TRAINED PT RE: SWALLOW TECHNIQUE BY USING SMALL SIPS. PT WAS ABLE TO USE THE TECHNIQUE. DUE TO SCHEDULING CONFLICT, UNABLE TO COMPLETE THE VIDEOSWALLOW STUDY AT THIS TIME. WILL FOLLOW UP. CONSIDER VIDEOSWALLOW STUDY OP IF D/C(DO NOT HOLD UP THE DISCHARGE).
--- NOTE | 2019-01-27 13:36 | General Progress Note ---
Assessment/Plan Problem List: (1) UTI (urinary tract infection) ICD Codes: N39.0 - Urinary tract infection, site not specified SNOMED: 55979264 (2) Anemia ICD Codes: D64.9 - Anemia, unspecified SNOMED: 063266120 (3) Arthritis ICD Codes: M19.90 - Unspecified osteoarthritis, unspecified site SNOMED: 5545875 (4) Hypertension ICD Codes: I10 - Essential (primary) hypertension SNOMED: 37358728 (5) COPD exacerbation ICD Codes: J44.1 - Chronic obstructive pulmonary disease with (acute) exacerbation SNOMED: 514305105, 584854728, 800052371 (6) CHF exacerbation ICD Codes: I50.9 - Heart failure, unspecified SNOMED: 80117501, 637098497, 457415247 (7) Cervical radiculopathy ICD Codes: M54.12 - Radiculopathy, cervical region SNOMED: 87473990 Status: stable, progressing Assessment/Plan o2 pulm tx abt pain control pt diet sx eval cbc bmp am dc to snf if clear Subjective Constitutional: Reports: weakness Allergies: Coded Allergies: PENICILLINS (Verified Allergy, Unknown, SWELLING EVERYWHERE, EVEN EYES PER PATIENT, 11/24/11) All Systems: reviewed and negative except above Subjective o2nc sleepy in bed Objective Last 24 Hour Vital Signs Date Time Temp Pulse Resp B/P (MAP) Pulse Ox O2 Delivery O2 Flow Rate FiO2 01/27/19 12:00 98.9 66 17 107/66 (80) 96 01/27/19 11:04 95 Nasal Cannula 3.0 32 01/27/19 11:04 86 16 Nasal Cannula 3.0 32 01/27/19 11:04 Nasal Cannula 3.0 32 01/27/19 09:00 Nasal Cannula 2.0 Nasal Cannula 2.0 01/27/19 08:00 98.7 92 18 121/68 (85) 100 01/27/19 04:00 98.1 79 18 121/72 (88) 96 01/27/19 00:00 97.8 80 18 117/77 (90) 100 01/26/19 21:00 Nasal Cannula 2.0 Nasal Cannula 2.0 01/26/19 20:11 Nasal Cannula 3.0 32 01/26/19 20:08 99 Nasal Cannula 3.0 32 01/26/19 20:00 98.6 74 18 143/67 (92) 94 01/26/19 16:00 97.5 97 17 121/68 (85) 96 Intake and Output 01/26/19 01/27/19 19:00 07:00 Intake Total 550 ml 240 ml Output Total 750 ml Balance 550 ml -510 ml Intake Oral 240 ml Other 550 ml Output Urine Total 750 ml # Voids 1 Laboratory Tests 01/27/19 06:02: White Blood Count 7.2, Red Blood Count 3.63L, Hemoglobin 9.9L, Hematocrit 31.7L , Mean Corpuscular Volume 87, Mean Corpuscular Hemoglobin 27.3, Mean Corpuscular Hemoglobin Concent 31.4L, Red Cell Distribution Width 18.4H, Platelet Count 284, Mean Platelet Volume 6.0L, Neutrophils (%) (Auto) 60.8, Lymphocytes (%) (Auto) 20.4, Monocytes (%) (Auto) 11.0H, Eosinophils (%) (Auto) 6.9H, Basophils (%) (Auto) 1.0, Sodium Level 136, Potassium Level 4.1, Chloride Level 100, Carbon Dioxide Level 28, Anion Gap 8, Blood Urea Nitrogen 16, Creatinine 0.7, Estimat Glomerular Filtration Rate , Glucose Level 77, Calcium Level 9.6 Height (Feet): 5 Height (Inches): 6.00 Weight (Pounds): 110 General Appearance: lethargic EENT: normal ENT inspection Neck: normal alignment Cardiovascular: normal peripheral pulses, normal rate, regular rhythm Respiratory/Chest: chest wall non-tender, decreased breath sounds Abdomen: normal bowel sounds, non tender, soft Extremities: normal inspection Edema: no edema noted Arm (L), no edema noted Arm (R), no edema noted Leg (L), no edema noted Leg (R), no edema noted Pedal (L), no edema noted Pedal (R), no edema noted Generalized Neurologic: responsive, motor weakness Skin: normal pigmentation, warm/dry Rio Lema DO Jan 27, 2019 13:36
[2019-01-27] MEDS: Fleet's Mineral Oil Enema RECTAL PRN (13:38)
--- NOTE | 2019-01-27 14:08 | Cardiology Report ---
APPROVED REPORT EKG Measurement Heart [id number] Normal sinus rhythm Incomplete left bundle branch block Left ventricular hypertrophy with repolarization abnormality Abnormal ECG
--- NOTE | 2019-01-27 14:38 | NUR ---
RD ASSESSMENT & RECOMMENDATIONS SEE CARE ACTIVITY FOR COMPLETE ASSESSMENT DAILY ESTIMATED NEEDS: Needs based on wasting, pulmonary/ 52kg 28-33 kcals/kg 2467-1537 total kcals 1.0-1.5 g protein/kg 52-78 g total protein 25-30 mL/kg 1191-9659 total fluid mLs NUTRITION DIAGNOSIS: Swallowing difficulty R/T dysphagia w/ h/o CVA + PNA as evidenced by PINION SORTER recommends pureed moist texture, NTL at this time-> now upgraded to Regular texture. CURRENT DIET: REGULAR PO DIET RECOMMENDATIONS: LOW NA/ texture per PINION SORTER ENTERAL NUTRITION RECOMMENDATIONS: * CONSULT RD IF NONORAL FEEDS ARE PART OF POC * WITH POOR PO INTAKE ADDITIONAL RECOMMENDATIONS: * Txr pt to bed with bedscale, obtain calibrated bedscale wt * Weekly wt monitoring- pt reports recent wt loss * Ensure Enlive TID w/ meals * Monitor PO intake and tolerance closely * on lasix, monitor lytes daily, replete as needed * Add snacks in b/w meals
--- NOTE | 2019-01-27 15:28 | Infectious Diseases Prog Note ---
Assessment/Plan Assessment/Plan Assessment: Probable Aspiration PNA vs pneumonitis, sp Rx -sp cx PsA (R Levo/Cipro; otherwise S including Aztreonam) Pneumomediastinum-suspected to rupture R side paratracheal bleb -01/25 CXR: Suspected interstitial disease. This may be chronic due to fibrosis. Pneumomediastinum. -01/20 CXR: Increasing bilateral parenchymal opacities, likely reflecting increasing edema or infiltrate superimposed on pre-existing chronic opacities. Central mediastinal lucency, likely reflects pneumomediastinum described on recent chest CT -CTA chest: Negative for acute pulmonary embolus or other acute thoracic vascular pathology. Pneumomediastinum. Suspect due to a ruptured right-sided medial bleb. Evidence of extensive chronic pulmonary parenchymal interstitial disease, with areas of honeycombing and bronchiectasis. No definite acute pulmonary parenchymal process. Ectatic main and left main pulmonary arteries, suggestive of pulmonary arterial hypertension. Bullae and subpleural blebs, may be related to the interstitial fibrotic process or could represent COPD changes -CXR: Cardiomegaly. Bilateral extensive interstitial and airspace opacities, slightly increased from but similar in distribution to prior study of 2017. Suspect component of chronic interstitial fibrosis with superimposed acute edema or infiltrates -influenza sc neg Afebrile No leukocytosis AST elevation; improving -HIV ab sc neg -Hep C+, VL neg; cleared infection DM HTN LA CAD CHF cervical radiculopathy CVA asthma COPD /Emphysema sp Bilateral hip replacement [facility] resident Plan: -Continue to monitor off abx -01/25 SP Aztreonam #7 -01/24 SP Azithromycin #5 -01/17 SP Ceftriaxone x1 -f/u cx -monitor CBC/CMP, temperatures -aspiration precautions Thank you for this consultation. Will continue to follow along with you. Discussed with RN. Subjective Allergies: Coded Allergies: PENICILLINS (Verified Allergy, Unknown, SWELLING EVERYWHERE, EVEN EYES PER PATIENT, 11/24/11) Subjective afebrile at 2l NC no leukocytosis Objective Vital Signs Last 24 Hour Vital Signs Date Time Temp Pulse Resp B/P (MAP) Pulse Ox O2 Delivery O2 Flow Rate FiO2 01/27/19 12:00 98.9 66 17 107/66 (80) 96 01/27/19 11:04 95 Nasal Cannula 3.0 32 01/27/19 11:04 86 16 Nasal Cannula 3.0 32 01/27/19 11:04 Nasal Cannula 3.0 32 01/27/19 09:00 Nasal Cannula 2.0 Nasal Cannula 2.0 01/27/19 08:00 98.7 92 18 121/68 (85) 100 01/27/19 04:00 98.1 79 18 121/72 (88) 96 01/27/19 00:00 97.8 80 18 117/77 (90) 100 01/26/19 21:00 Nasal Cannula 2.0 Nasal Cannula 2.0 01/26/19 20:11 Nasal Cannula 3.0 32 01/26/19 20:08 99 Nasal Cannula 3.0 32 01/26/19 20:00 98.6 74 18 143/67 (92) 94 01/26/19 16:00 97.5 97 17 121/68 (85) 96 Height (Feet): 5 Height (Inches): 6.00 Weight (Pounds): 110 Objective GENERAL: Calm in bed, O2 NC, slight short of breath. Oriented x2, no acute distress. CARDIOVASCULAR: No murmurs. LUNGS: Poor air exchange. ABDOMEN: Bowel sounds distant. EXTREMITIES: No cyanosis, clubbing, or edema. NEUROLOGIC: The patient moves all extremities, slightly weak. Laboratory Tests Test 01/27/19 06:02 White Blood Count 7.2 K/UL (4.8-10.8) Red Blood Count 3.63 M/UL (4.20-5.40) L Hemoglobin 9.9 G/DL (12.0-16.0) L Hematocrit 31.7 % (37.0-47.0) L Mean Corpuscular Volume 87 FL (80-99) Mean Corpuscular Hemoglobin 27.3 PG (27.0-31.0) Mean Corpuscular Hemoglobin Concent 31.4 G/DL (32.0-36.0) L Red Cell Distribution Width 18.4 % (11.6-14.8) H Platelet Count 284 K/UL (150-450) Mean Platelet Volume 6.0 FL (6.5-10.1) L Neutrophils (%) (Auto) 60.8 % (45.0-75.0) Lymphocytes (%) (Auto) 20.4 % (20.0-45.0) Monocytes (%) (Auto) 11.0 % (1.0-10.0) H Eosinophils (%) (Auto) 6.9 % (0.0-3.0) H Basophils (%) (Auto) 1.0 % (0.0-2.0) Sodium Level 136 MMOL/L (136-145) Potassium Level 4.1 MMOL/L (3.5-5.1) Chloride Level 100 MMOL/L (98-107) Carbon Dioxide Level 28 MMOL/L (21-32) Anion Gap 8 mmol/L (5-15) Blood Urea Nitrogen 16 mg/dL (7-18) Creatinine 0.7 MG/DL (0.55-1.30) Estimat Glomerular Filtration Rate mL/min (>60) Glucose Level 77 MG/DL (74-106) Calcium Level 9.6 MG/DL (8.5-10.1) Current Medications Medications (Trade) Dose Ordered Sig/Charly Route PRN Reason Start Time Stop Time Status Last Admin Dose Admin Albuterol/ Ipratropium (Albuterol/ Ipratropium) 3 ml Q4H PRN HHN Shortness of Breath 01/27/19 13:00 02/01/19 12:59 Aspirin (Ecotrin) 81 mg DAILY ORAL 01/22/19 09:00 02/18/19 08:59 01/27/19 08:51 Bisacodyl (Dulcolax) 10 mg BIDPRN PRN RECTAL Constipation 01/23/19 10:00 02/22/19 09:59 01/27/19 10:30 Dextrose (Dextrose 50%) 25 ml Q30M PRN IV Hypoglycemia 01/21/19 19:45 02/16/19 17:32 Dextrose (Dextrose 50%) 50 ml Q30M PRN IV Hypoglycemia 01/21/19 19:45 02/16/19 17:32 Docusate Sodium (Colace) 100 mg TWICE A DAY ORAL 01/23/19 10:00 02/22/19 09:59 01/27/19 08:51 Furosemide (Lasix) 40 mg DAILY ORAL 01/22/19 09:00 02/21/19 08:59 01/27/19 08:51 Heparin Sodium (Porcine) (Heparin 5000 units/ml) 5,000 units EVERY 12 HOURS SUBQ 01/21/19 21:00 02/16/19 20:59 01/27/19 08:52 Lidocaine (Xylocaine 1% MPF 5ml) 10 ml Q4H PRN HHN cough 01/21/19 19:13 02/18/19 19:12 Lorazepam (Ativan 2mg/ml 1ml) 0.5 mg Q4H PRN IV For Anxiety 01/27/19 13:00 02/01/19 12:59 Mineral Oil (Fleet's Mineral Oil Enema) 133 ml DAILYPRN PRN RECTAL Constipation 01/24/19 09:30 02/23/19 09:29 01/27/19 13:38 Nitroglycerin (Ntg) 0.4 mg Q5M X 3 DOSES PRN SL Prn Chest Pain 01/21/19 19:15 02/16/19 17:33 Ondansetron HCl (Zofran) 4 mg Q6H PRN IVP Nausea & Vomiting 01/21/19 19:13 02/16/19 19:12 Polyethylene Glycol (Miralax) 17 gm BEDTIME ORAL 01/24/19 21:00 02/23/19 20:59 01/26/19 21:14 Potassium Chloride (K-Dur) 40 meq DAILY ORAL 01/25/19 11:00 02/24/19 10:59 01/27/19 08:51 Promethazine HCl/ Codeine (Phenergan with Codeine) 5 ml Q6H PRN ORAL cough 01/21/19 19:14 02/16/19 19:13 Quetiapine Fumarate (SEROquel) 25 mg Q12HR ORAL 01/21/19 21:00 02/17/19 20:59 01/27/19 08:51 Temazepam (Restoril) 15 mg HSPRN PRN ORAL Insomnia 01/27/19 12:45 02/01/19 12:44 Theophylline (Jimmy-Dur) 100 mg EVERY 12 HOURS ORAL 01/21/19 21:00 02/16/19 20:59 01/27/19 08:51 Katt Ken M.D. Jan 27, 2019 15:28
[2019-01-27 16:00] VITALS: BP 116/63
--- NOTE | 2019-01-27 16:40 | NUR ---
NURSE NOTES: Spoke to regarding discharge. Patient cleared to discharge ID () standpoint. Order read back and carried out.
--- NOTE | 2019-01-27 17:23 | NUR ---
DISCHARGE PLANNING: NOTE CLINICALS FAXED TO TIFFAN[facility] CM TO CONFIRM THAT [facility] RECEIVED CLINICALS. T: [phone] F:[phone] Addendum: 01/27/19 at 1928 by Nohelia Kirkpatrick CM BEDS ARE FULL
--- NOTE | 2019-01-27 19:30 | NUR ---
HAND-OFF: Report given to Lyubov SAVAGE. Patient in stable condition.
--- NOTE | 2019-01-27 19:31 | NUR ---
NURSE NOTES: Received report & pt from HUSSEIN Patrick. Pt lying in bed. a&ox4, on O2 via NC @ 2LPM. No s/s of acute distress & no c/o pain. IV site intact & S/L'd. Bed in lowest position, call light within reach. Will continue to monitor.
[2019-01-27 20:00] VITALS: BP 130/70
[2019-01-27] MEDS: Miralax 17gm pkt ORAL SCH (20:40)
[2019-01-28] VITALS (7 sets, daily range): BP systolic 107–139; BP diastolic 55–74
[2019-01-28] MEDS: Sucralfate 1gm tab ORAL SCH ×4 (02:05→17:20)
--- NOTE | 2019-01-28 07:06 | NUR ---
HAND-OFF: Report given to HUSSEIN Patrick. Pt in stable condition.
--- NOTE | 2019-01-28 07:25 | NUR ---
NURSE NOTES: Patient lying in bed awake. No complain of pain or distress at this time. Skin intact and dry. IV dressing intact and dry. Bed lowest position. Call light within reach. Will continue to monitor.
[2019-01-28 07:26] LABS: BASOPHILS % (AUTO) 1.3 % (0.0-2.0); EOSINOPHILS % (AUTO) 6.2 % (0.0-3.0); HEMATOCRIT 31.3 % (37.0-47.0); HEMOGLOBIN 9.7 G/DL (12.0-16.0); LYMPHOCYTES % (AUTO) 17.2 % (20.0-45.0); MEAN CORPUSCULAR VOLUME 87 FL (80-99); MONOCYTES % (AUTO) 7.4 % (1.0-10.0); NEUTROPHILS % (AUTO) 67.9 % (45.0-75.0); PLATELET COUNT 300 K/UL (150-450); RED CELL DISTRIBUTION WIDTH 17.9 % (11.6-14.8); WHITE BLOOD COUNT 6.2 K/UL (4.8-10.8)
[2019-01-28 07:45] LABS: ANION GAP 8 mmol/L (5-15); BLOOD UREA NITROGEN 16 mg/dL (7-18); CALCIUM 9.9 MG/DL (8.5-10.1); CARBON DIOXIDE 28 MMOL/L (21-32); CHLORIDE 99 MMOL/L (98-107); CREATININE 0.7 MG/DL (0.55-1.30); POTASSIUM 4.3 MMOL/L (3.5-5.1); SODIUM 135 MMOL/L (136-145)
[2019-01-28] MEDS: Aspirin EC 81mg tab ORAL SCH (08:40)
[2019-01-28] MEDS: Theophylline ER 100mg ORAL SCH ×2 (08:40→21:16)
[2019-01-28] MEDS: Docusate 100mg cap ORAL SCH ×2 (08:41→17:20)
[2019-01-28] MEDS: Heparin 5000 units/ml inj SUBQ SCH ×2 (08:41→21:20)
--- NOTE | 2019-01-28 09:27 | Infectious Diseases Prog Note ---
Assessment/Plan Assessment/Plan Assessment: Probable Aspiration PNA vs pneumonitis, sp Rx -sp cx PsA (R Levo/Cipro; otherwise S including Aztreonam) Pneumomediastinum-suspected to rupture R side paratracheal bleb -01/25 CXR: Suspected interstitial disease. This may be chronic due to fibrosis. Pneumomediastinum. -01/20 CXR: Increasing bilateral parenchymal opacities, likely reflecting increasing edema or infiltrate superimposed on pre-existing chronic opacities. Central mediastinal lucency, likely reflects pneumomediastinum described on recent chest CT -CTA chest: Negative for acute pulmonary embolus or other acute thoracic vascular pathology. Pneumomediastinum. Suspect due to a ruptured right-sided medial bleb. Evidence of extensive chronic pulmonary parenchymal interstitial disease, with areas of honeycombing and bronchiectasis. No definite acute pulmonary parenchymal process. Ectatic main and left main pulmonary arteries, suggestive of pulmonary arterial hypertension. Bullae and subpleural blebs, may be related to the interstitial fibrotic process or could represent COPD changes -CXR: Cardiomegaly. Bilateral extensive interstitial and airspace opacities, slightly increased from but similar in distribution to prior study of 2017. Suspect component of chronic interstitial fibrosis with superimposed acute edema or infiltrates -influenza sc neg Afebrile No leukocytosis AST elevation; improving -HIV ab sc neg -Hep C+, VL neg; cleared infection DM HTN IA CAD CHF cervical radiculopathy CVA asthma COPD /Emphysema sp Bilateral hip replacement [facility] resident Plan: -Continue to monitor off abx -01/25 SP Aztreonam #7 -01/24 SP Azithromycin #5 -01/17 SP Ceftriaxone x1 -f/u cx -monitor CBC/CMP, temperatures -aspiration precautions Subjective Allergies: Coded Allergies: PENICILLINS (Verified Allergy, Unknown, SWELLING EVERYWHERE, EVEN EYES PER PATIENT, 11/24/11) Subjective comfortable Objective Vital Signs Last 24 Hour Vital Signs Date Time Temp Pulse Resp B/P (MAP) Pulse Ox O2 Delivery O2 Flow Rate FiO2 01/28/19 08:00 98.6 80 17 107/59 (75) 100 01/28/19 04:00 97.3 76 18 122/74 (90) 100 01/28/19 00:00 97.4 73 18 119/68 (85) 100 01/27/19 21:33 Nasal Cannula 2.0 28 01/27/19 21:32 96 Nasal Cannula 2.0 28 01/27/19 21:00 Nasal Cannula 2.0 Nasal Cannula 2.0 01/27/19 20:00 98.8 83 18 130/70 (90) 100 01/27/19 16:00 98.3 79 17 116/63 (80) 98 01/27/19 12:00 98.9 66 17 107/66 (80) 96 01/27/19 11:04 95 Nasal Cannula 3.0 32 01/27/19 11:04 86 16 Nasal Cannula 3.0 32 01/27/19 11:04 Nasal Cannula 3.0 32 Height (Feet): 5 Height (Inches): 6.00 Weight (Pounds): 110 HEENT: atraumatic Respiratory/Chest: lungs clear Cardiovascular: regularly irregular Abdomen: non distended Laboratory Tests Test 01/28/19 07:06 White Blood Count 6.2 K/UL (4.8-10.8) Red Blood Count 3.60 M/UL (4.20-5.40) L Hemoglobin 9.7 G/DL (12.0-16.0) L Hematocrit 31.3 % (37.0-47.0) L Mean Corpuscular Volume 87 FL (80-99) Mean Corpuscular Hemoglobin 27.1 PG (27.0-31.0) Mean Corpuscular Hemoglobin Concent 31.2 G/DL (32.0-36.0) L Red Cell Distribution Width 17.9 % (11.6-14.8) H Platelet Count 300 K/UL (150-450) Mean Platelet Volume 7.1 FL (6.5-10.1) Neutrophils (%) (Auto) 67.9 % (45.0-75.0) Lymphocytes (%) (Auto) 17.2 % (20.0-45.0) L Monocytes (%) (Auto) 7.4 % (1.0-10.0) Eosinophils (%) (Auto) 6.2 % (0.0-3.0) H Basophils (%) (Auto) 1.3 % (0.0-2.0) Sodium Level 135 MMOL/L (136-145) L Potassium Level 4.3 MMOL/L (3.5-5.1) Chloride Level 99 MMOL/L (98-107) Carbon Dioxide Level 28 MMOL/L (21-32) Anion Gap 8 mmol/L (5-15) Blood Urea Nitrogen 16 mg/dL (7-18) Creatinine 0.7 MG/DL (0.55-1.30) Estimat Glomerular Filtration Rate mL/min (>60) Glucose Level 95 MG/DL (74-106) Calcium Level 9.9 MG/DL (8.5-10.1) Current Medications Medications (Trade) Dose Ordered Sig/Charly Route PRN Reason Start Time Stop Time Status Last Admin Dose Admin Albuterol/ Ipratropium (Albuterol/ Ipratropium) 3 ml Q4H PRN HHN Shortness of Breath 01/27/19 13:00 02/01/19 12:59 Aspirin (Ecotrin) 81 mg DAILY ORAL 01/22/19 09:00 02/18/19 08:59 01/28/19 08:40 Bisacodyl (Dulcolax) 10 mg BIDPRN PRN RECTAL Constipation 01/23/19 10:00 02/22/19 09:59 01/27/19 10:30 Dextrose (Dextrose 50%) 25 ml Q30M PRN IV Hypoglycemia 01/21/19 19:45 02/16/19 17:32 Dextrose (Dextrose 50%) 50 ml Q30M PRN IV Hypoglycemia 01/21/19 19:45 02/16/19 17:32 Docusate Sodium (Colace) 100 mg TWICE A DAY ORAL 01/23/19 10:00 02/22/19 09:59 01/28/19 08:41 Furosemide (Lasix) 40 mg DAILY ORAL 01/22/19 09:00 02/21/19 08:59 01/27/19 08:51 Heparin Sodium (Porcine) (Heparin 5000 units/ml) 5,000 units EVERY 12 HOURS SUBQ 01/21/19 21:00 02/16/19 20:59 01/28/19 08:41 Lidocaine (Xylocaine 1% MPF 5ml) 10 ml Q4H PRN HHN cough 01/21/19 19:13 02/18/19 19:12 Lorazepam (Ativan 2mg/ml 1ml) 0.5 mg Q4H PRN IV For Anxiety 01/27/19 13:00 02/01/19 12:59 Mineral Oil (Fleet's Mineral Oil Enema) 133 ml DAILYPRN PRN RECTAL Constipation 01/24/19 09:30 02/23/19 09:29 01/27/19 13:38 Nitroglycerin (Ntg) 0.4 mg Q5M X 3 DOSES PRN SL Prn Chest Pain 01/21/19 19:15 02/16/19 17:33 Ondansetron HCl (Zofran) 4 mg Q6H PRN IVP Nausea & Vomiting 01/21/19 19:13 02/16/19 19:12 Polyethylene Glycol (Miralax) 17 gm BEDTIME ORAL 01/24/19 21:00 02/23/19 20:59 01/27/19 20:40 Potassium Chloride (K-Dur) 40 meq DAILY ORAL 01/25/19 11:00 02/24/19 10:59 01/28/19 08:40 Promethazine HCl/ Codeine (Phenergan with Codeine) 5 ml Q6H PRN ORAL cough 01/21/19 19:14 02/16/19 19:13 Quetiapine Fumarate (SEROquel) 25 mg Q12HR ORAL 01/21/19 21:00 02/17/19 20:59 01/28/19 08:40 Sucralfate (Carafate) 1 gm TID ORAL 01/28/19 01:15 02/27/19 01:14 01/28/19 08:40 Temazepam (Restoril) 15 mg HSPRN PRN ORAL Insomnia 01/27/19 12:45 02/01/19 12:44 Theophylline (Jimmy-Dur) 100 mg EVERY 12 HOURS ORAL 01/21/19 21:00 02/16/19 20:59 01/28/19 08:40 Deandre Herrear MD Jan 28, 2019 09:27
[2019-01-28] MEDS: Furosemide 40mg tab ORAL SCH (09:40)
--- NOTE | 2019-01-28 11:28 | Pulmonology Progress Note ---
Assessment/Plan Problems: (1) Acute respiratory failure (2) COPD exacerbation (3) Pulmonary hypertension (4) Pulmonary fibrosis (5) Elevated troponin (6) Protein-calorie malnutrition, severe (7) Hypertension Assessment/Plan all reviewed still constipated feeling better sputum has Pseudomonas cxr better, 01/24 continue abx until sputum is available CT chest reviewed, pt has extensive fibrosis and chronic changes Echo reviewed, Grade one diastolic dysfunction trial of lidocaine inhalers and chronic Methadone to suppress dyspnea. ( it is helping her a lot) f/u cardiology recommendations Poor overall prognosis. Subjective ROS Limited/Unobtainable: No Constitutional: Reports: no symptoms HEENT: Repors: no symptoms Allergies: Coded Allergies: PENICILLINS (Verified Allergy, Unknown, SWELLING EVERYWHERE, EVEN EYES PER PATIENT, 11/24/11) Objective Last 24 Hour Vital Signs Date Time Temp Pulse Resp B/P (MAP) Pulse Ox O2 Delivery O2 Flow Rate FiO2 01/28/19 09:50 81 114/60 (78) 01/28/19 09:48 98 Nasal Cannula 2.0 28 01/28/19 09:48 Nasal Cannula 2.0 28 01/28/19 09:00 Nasal Cannula 2.0 Nasal Cannula 2.0 01/28/19 08:00 98.6 80 17 107/59 (75) 100 01/28/19 04:00 97.3 76 18 122/74 (90) 100 01/28/19 00:00 97.4 73 18 119/68 (85) 100 01/27/19 21:33 Nasal Cannula 2.0 28 01/27/19 21:32 96 Nasal Cannula 2.0 28 01/27/19 21:00 Nasal Cannula 2.0 Nasal Cannula 2.0 01/27/19 20:00 98.8 83 18 130/70 (90) 100 01/27/19 16:00 98.3 79 17 116/63 (80) 98 01/27/19 12:00 98.9 66 17 107/66 (80) 96 Intake and Output 01/27/19 01/28/19 19:00 07:00 Intake Total 240 ml 240 ml Balance 240 ml 240 ml Intake Oral 240 ml 240 ml # Voids 1 1 # Bowel Movements 1 Objective General Appearance: cachetic HEENT: normocephalic, atraumatic Respiratory/Chest: chest wall non-tender, normal breath sounds Cardiovascular: normal peripheral pulses, regular rhythm Abdomen: normal bowel sounds, soft, non tender Laboratory Tests 01/28/19 07:06: White Blood Count 6.2, Red Blood Count 3.60L, Hemoglobin 9.7L, Hematocrit 31.3L , Mean Corpuscular Volume 87, Mean Corpuscular Hemoglobin 27.1, Mean Corpuscular Hemoglobin Concent 31.2L, Red Cell Distribution Width 17.9H, Platelet Count 300, Mean Platelet Volume 7.1, Neutrophils (%) (Auto) 67.9, Lymphocytes (%) (Auto) 17.2L, Monocytes (%) (Auto) 7.4, Eosinophils (%) (Auto) 6.2H, Basophils (%) (Auto) 1.3, Sodium Level 135L, Potassium Level 4.3, Chloride Level 99, Carbon Dioxide Level 28, Anion Gap 8, Blood Urea Nitrogen 16 , Creatinine 0.7, Estimat Glomerular Filtration Rate , Glucose Level 95, Calcium Level 9.9 Current Medications Medications (Trade) Dose Ordered Sig/Charly Route PRN Reason Start Time Stop Time Status Last Admin Dose Admin Albuterol/ Ipratropium (Albuterol/ Ipratropium) 3 ml Q4H PRN HHN Shortness of Breath 01/27/19 13:00 02/01/19 12:59 Aspirin (Ecotrin) 81 mg DAILY ORAL 01/22/19 09:00 02/18/19 08:59 01/28/19 08:40 Bisacodyl (Dulcolax) 10 mg BIDPRN PRN RECTAL Constipation 01/23/19 10:00 02/22/19 09:59 01/27/19 10:30 Dextrose (Dextrose 50%) 25 ml Q30M PRN IV Hypoglycemia 01/21/19 19:45 02/16/19 17:32 Dextrose (Dextrose 50%) 50 ml Q30M PRN IV Hypoglycemia 01/21/19 19:45 02/16/19 17:32 Docusate Sodium (Colace) 100 mg TWICE A DAY ORAL 01/23/19 10:00 02/22/19 09:59 01/28/19 08:41 Furosemide (Lasix) 40 mg DAILY ORAL 01/22/19 09:00 02/21/19 08:59 01/28/19 09:40 Heparin Sodium (Porcine) (Heparin 5000 units/ml) 5,000 units EVERY 12 HOURS SUBQ 01/21/19 21:00 02/16/19 20:59 01/28/19 08:41 Lidocaine (Xylocaine 1% MPF 5ml) 10 ml Q4H PRN HHN cough 01/21/19 19:13 02/18/19 19:12 Lorazepam (Ativan 2mg/ml 1ml) 0.5 mg Q4H PRN IV For Anxiety 01/27/19 13:00 02/01/19 12:59 Mineral Oil (Fleet's Mineral Oil Enema) 133 ml DAILYPRN PRN RECTAL Constipation 01/24/19 09:30 02/23/19 09:29 01/27/19 13:38 Nitroglycerin (Ntg) 0.4 mg Q5M X 3 DOSES PRN SL Prn Chest Pain 01/21/19 19:15 02/16/19 17:33 Ondansetron HCl (Zofran) 4 mg Q6H PRN IVP Nausea & Vomiting 01/21/19 19:13 02/16/19 19:12 Polyethylene Glycol (Miralax) 17 gm BEDTIME ORAL 01/24/19 21:00 02/23/19 20:59 01/27/19 20:40 Potassium Chloride (K-Dur) 40 meq DAILY ORAL 01/25/19 11:00 02/24/19 10:59 01/28/19 08:40 Promethazine HCl/ Codeine (Phenergan with Codeine) 5 ml Q6H PRN ORAL cough 01/21/19 19:14 02/16/19 19:13 Quetiapine Fumarate (SEROquel) 25 mg Q12HR ORAL 01/21/19 21:00 02/17/19 20:59 01/28/19 08:40 Sucralfate (Carafate) 1 gm TID ORAL 01/28/19 01:15 02/27/19 01:14 01/28/19 08:40 Temazepam (Restoril) 15 mg HSPRN PRN ORAL Insomnia 01/27/19 12:45 02/01/19 12:44 Theophylline (Jimmy-Dur) 100 mg EVERY 12 HOURS ORAL 01/21/19 21:00 02/16/19 20:59 01/28/19 08:40 Jersey Chadwick MD Jan 28, 2019 11:28
[2019-01-28] MEDS: LORazepam Inj 2mg/ml 1ml IV PRN (16:36)
--- NOTE | 2019-01-28 17:34 | Cardiac Electrophysiology PN ---
Assessment/Plan Assessment/Plan 1. Type 2 NSTEMI. No CP or SOB. EF normal . ECG incomplete LBBB, LVH. On aspirin. Off Beta ehsan for asthma on steroids 2. CHF due to diastolic dysfunction with BNP >1500. On Lasix 40 mg po daily 3. Hypertension. 4. COPD exacerbation on Abx and severe pulmonary HTN 5. Anemia. 6. UTI 8. Osteoarthritis. 9. Cervical radiculopathy. 10. Constipation DW RN Awaiting placement Subjective Subjective Comfortable in NAD. Awaiting placement. Objective Last 24 Hour Vital Signs Date Time Temp Pulse Resp B/P (MAP) Pulse Ox O2 Delivery O2 Flow Rate FiO2 01/28/19 16:00 98.6 79 19 119/60 (79) 98 01/28/19 12:00 98.8 78 20 117/55 (75) 100 01/28/19 09:50 81 114/60 (78) 01/28/19 09:48 98 Nasal Cannula 2.0 28 01/28/19 09:48 Nasal Cannula 2.0 28 01/28/19 09:00 Nasal Cannula 2.0 Nasal Cannula 2.0 01/28/19 08:00 98.6 80 17 107/59 (75) 100 01/28/19 04:00 97.3 76 18 122/74 (90) 100 01/28/19 00:00 97.4 73 18 119/68 (85) 100 01/27/19 21:33 Nasal Cannula 2.0 28 01/27/19 21:32 96 Nasal Cannula 2.0 28 01/27/19 21:00 Nasal Cannula 2.0 Nasal Cannula 2.0 01/27/19 20:00 98.8 83 18 130/70 (90) 100 Intake and Output 01/27/19 01/28/19 18:59 06:59 Intake Total 240 ml 240 ml Balance 240 ml 240 ml Intake Oral 240 ml 240 ml # Voids 1 1 # Bowel Movements 1 Laboratory Tests Test 01/28/19 07:06 White Blood Count 6.2 K/UL (4.8-10.8) Red Blood Count 3.60 M/UL (4.20-5.40) L Hemoglobin 9.7 G/DL (12.0-16.0) L Hematocrit 31.3 % (37.0-47.0) L Mean Corpuscular Volume 87 FL (80-99) Mean Corpuscular Hemoglobin 27.1 PG (27.0-31.0) Mean Corpuscular Hemoglobin Concent 31.2 G/DL (32.0-36.0) L Red Cell Distribution Width 17.9 % (11.6-14.8) H Platelet Count 300 K/UL (150-450) Mean Platelet Volume 7.1 FL (6.5-10.1) Neutrophils (%) (Auto) 67.9 % (45.0-75.0) Lymphocytes (%) (Auto) 17.2 % (20.0-45.0) L Monocytes (%) (Auto) 7.4 % (1.0-10.0) Eosinophils (%) (Auto) 6.2 % (0.0-3.0) H Basophils (%) (Auto) 1.3 % (0.0-2.0) Sodium Level 135 MMOL/L (136-145) L Potassium Level 4.3 MMOL/L (3.5-5.1) Chloride Level 99 MMOL/L (98-107) Carbon Dioxide Level 28 MMOL/L (21-32) Anion Gap 8 mmol/L (5-15) Blood Urea Nitrogen 16 mg/dL (7-18) Creatinine 0.7 MG/DL (0.55-1.30) Estimat Glomerular Filtration Rate mL/min (>60) Glucose Level 95 MG/DL (74-106) Calcium Level 9.9 MG/DL (8.5-10.1) Objective HEENT: No JVD Respiratory/Chest: Rhonchi Cardiovascular/Chest: Normal peripheral pulses, normal rate, regular rhythm Abdomen: normal bowel sounds, non tender, soft, no organomegaly Extremities: No edema Renzo Burgess MD Jan 28, 2019 17:34
--- NOTE | 2019-01-28 18:14 | General Progress Note ---
Assessment/Plan Problem List: (1) Protein-calorie malnutrition, severe ICD Codes: E43 - Unspecified severe protein-calorie malnutrition SNOMED: 010756001, 941056526, 690180504 (2) Arthritis ICD Codes: M19.90 - Unspecified osteoarthritis, unspecified site SNOMED: 6650090 (3) UTI (urinary tract infection) ICD Codes: N39.0 - Urinary tract infection, site not specified SNOMED: 70464482 (4) Anemia ICD Codes: D64.9 - Anemia, unspecified SNOMED: 383116133 (5) Pulmonary hypertension ICD Codes: I27.20 - Pulmonary hypertension, unspecified SNOMED: 49007080 (6) Pulmonary fibrosis ICD Codes: J84.10 - Pulmonary fibrosis, unspecified SNOMED: 77454115 (7) Hypertension ICD Codes: I10 - Essential (primary) hypertension SNOMED: 85513201 (8) Cervical radiculopathy ICD Codes: M54.12 - Radiculopathy, cervical region SNOMED: 00712846 (9) Hip osteoarthritis ICD Codes: M16.9 - Osteoarthritis of hip, unspecified SNOMED: 553318253 (10) COPD exacerbation ICD Codes: J44.1 - Chronic obstructive pulmonary disease with (acute) exacerbation SNOMED: 744574387, 783117608, 863820576 (11) CHF exacerbation ICD Codes: I50.9 - Heart failure, unspecified SNOMED: 85762239, 189751846, 681033699 Status: progressing Assessment/Plan cvoering for dr rikki gonzalez chf copd djd afebrile no active disease Subjective ROS Limited/Unobtainable: Yes Allergies: Coded Allergies: PENICILLINS (Verified Allergy, Unknown, SWELLING EVERYWHERE, EVEN EYES PER PATIENT, 11/24/11) Objective Last 24 Hour Vital Signs Date Time Temp Pulse Resp B/P (MAP) Pulse Ox O2 Delivery O2 Flow Rate FiO2 01/28/19 16:00 98.6 79 19 119/60 (79) 98 01/28/19 12:00 98.8 78 20 117/55 (75) 100 01/28/19 09:50 81 114/60 (78) 01/28/19 09:48 98 Nasal Cannula 2.0 28 01/28/19 09:48 Nasal Cannula 2.0 28 01/28/19 09:00 Nasal Cannula 2.0 Nasal Cannula 2.0 01/28/19 08:00 98.6 80 17 107/59 (75) 100 01/28/19 04:00 97.3 76 18 122/74 (90) 100 01/28/19 00:00 97.4 73 18 119/68 (85) 100 01/27/19 21:33 Nasal Cannula 2.0 28 01/27/19 21:32 96 Nasal Cannula 2.0 28 01/27/19 21:00 Nasal Cannula 2.0 Nasal Cannula 2.0 01/27/19 20:00 98.8 83 18 130/70 (90) 100 Intake and Output 01/27/19 01/28/19 18:59 06:59 Intake Total 240 ml 240 ml Balance 240 ml 240 ml Intake Oral 240 ml 240 ml # Voids 1 1 # Bowel Movements 1 Laboratory Tests 01/28/19 07:06: White Blood Count 6.2, Red Blood Count 3.60L, Hemoglobin 9.7L, Hematocrit 31.3L , Mean Corpuscular Volume 87, Mean Corpuscular Hemoglobin 27.1, Mean Corpuscular Hemoglobin Concent 31.2L, Red Cell Distribution Width 17.9H, Platelet Count 300, Mean Platelet Volume 7.1, Neutrophils (%) (Auto) 67.9, Lymphocytes (%) (Auto) 17.2L, Monocytes (%) (Auto) 7.4, Eosinophils (%) (Auto) 6.2H, Basophils (%) (Auto) 1.3, Sodium Level 135L, Potassium Level 4.3, Chloride Level 99, Carbon Dioxide Level 28, Anion Gap 8, Blood Urea Nitrogen 16 , Creatinine 0.7, Estimat Glomerular Filtration Rate , Glucose Level 95, Calcium Level 9.9 Height (Feet): 5 Height (Inches): 6.00 Weight (Pounds): 110 Cardiovascular: normal rate Respiratory/Chest: lungs clear Abdomen: soft Jennifer Chahal MD Jan 28, 2019 18:14
--- NOTE | 2019-01-28 19:30 | NUR ---
NURSE NOTES:Patient received from Darnell Rincon Patient A/A/OX4 . Patient on O2 2L via N/C in placed. Patient denies any pain at this time . no s/s of distress noted .RFA g#24 H/L patent and intact . Patient incontinent of urine keep clean and dry at all times Call light within reach. bed in low position at all times . will continue to monitor.
--- NOTE | 2019-01-28 19:30 | NUR ---
HAND-OFF: Report given to Grisel ABARCA. Patient in stable condition.
--- NOTE | 2019-01-28 19:30 | NUR ---
NURSE NOTES:Patient received from ESTER Rincon Patient A/A/OX4 Patient on O2 2l via n/c in placed HOB Elevated. patient incontinent of urine keep clean and dry .patient turned and repositioned to prevent skin Patient denies any pain at this time . no s/s of distress . call light within reach . bed in low position atall times . will continue to monitor
[2019-01-28] MEDS: Miralax 17gm pkt ORAL SCH (21:16)
[2019-01-29] VITALS: BP 130/77
[2019-01-29 04:00] VITALS: BP 134/88
[2019-01-29 08:00] VITALS: BP 115/63
--- NOTE | 2019-01-29 08:10 | NUR ---
NURSE NOTES: received patient A/A/Ox3, verbally responsive. able to verbalize needs. patient able to sit on the edge of the bed. excellent appetite. skin is intact. no acute resp distress noted. hob on semi fowlers position. siderails are upx3. call light is within reach. will cont to monitor.
[2019-01-29] MEDS: Theophylline ER 100mg ORAL SCH ×2 (08:51→21:04)
[2019-01-29] MEDS: Furosemide 40mg tab ORAL SCH (08:51)
[2019-01-29] MEDS: Docusate 100mg cap ORAL SCH ×2 (08:52→17:07)
[2019-01-29] MEDS: Sucralfate 1gm tab ORAL SCH ×3 (08:52→17:07)
[2019-01-29] MEDS: Aspirin EC 81mg tab ORAL SCH (08:52)
[2019-01-29] MEDS: Heparin 5000 units/ml inj SUBQ SCH ×2 (08:54→21:05)
--- NOTE | 2019-01-29 10:40 | NUR ---
NURSE NOTES: dulcolax supp administered for constipation. given prune juice as well. patient was c/o constipation. moaning and in pain. no acute distress noted. hob on semi ely position. will cont to monitor.
[2019-01-29 12:00] VITALS: BP 123/69
--- NOTE | 2019-01-29 14:17 | Pulmonology Progress Note ---
Assessment/Plan Problems: (1) Acute respiratory failure (2) COPD exacerbation (3) Pulmonary hypertension (4) Pulmonary fibrosis (5) Elevated troponin (6) Protein-calorie malnutrition, severe (7) Hypertension Assessment/Plan all reviewed still constipated feeling better sputum has Pseudomonas cxr better, 01/24 continue abx until sputum is available CT chest reviewed, pt has extensive fibrosis and chronic changes Echo reviewed, Grade one diastolic dysfunction trial of lidocaine inhalers and chronic Methadone to suppress dyspnea. ( it is helping her a lot) f/u cardiology recommendations Poor overall prognosis. Subjective ROS Limited/Unobtainable: No Constitutional: Reports: no symptoms HEENT: Repors: no symptoms Respiratory: Reports: no symptoms Allergies: Coded Allergies: PENICILLINS (Verified Allergy, Unknown, SWELLING EVERYWHERE, EVEN EYES PER PATIENT, 11/24/11) Objective Last 24 Hour Vital Signs Date Time Temp Pulse Resp B/P (MAP) Pulse Ox O2 Delivery O2 Flow Rate FiO2 01/29/19 12:00 99.3 74 17 123/69 (87) 98 01/29/19 09:00 Nasal Cannula 2.0 Nasal Cannula 2.0 01/29/19 08:00 98.9 83 18 115/63 (80) 94 01/29/19 04:00 98.0 88 18 134/88 (103) 98 01/29/19 00:00 98.5 85 18 130/77 (94) 100 01/28/19 21:00 Nasal Cannula 2.0 Nasal Cannula 2.0 01/28/19 20:00 98 Nasal Cannula 2.0 28 01/28/19 20:00 Nasal Cannula 2.0 28 01/28/19 20:00 98.5 88 18 139/68 (91) 100 01/28/19 16:00 98.6 79 19 119/60 (79) 98 Intake and Output 01/28/19 01/29/19 19:00 07:00 Intake Total 410 ml Balance 410 ml Intake Oral 410 ml # Voids 2 1 Objective General Appearance: cachetic HEENT: normocephalic, atraumatic Respiratory/Chest: chest wall non-tender, normal breath sounds Cardiovascular: normal peripheral pulses, regular rhythm Abdomen: normal bowel sounds, soft, non tender Current Medications Medications (Trade) Dose Ordered Sig/Charly Route PRN Reason Start Time Stop Time Status Last Admin Dose Admin Albuterol/ Ipratropium (Albuterol/ Ipratropium) 3 ml Q4H PRN HHN Shortness of Breath 01/27/19 13:00 02/01/19 12:59 Aspirin (Ecotrin) 81 mg DAILY ORAL 01/22/19 09:00 02/18/19 08:59 01/29/19 08:52 Bisacodyl (Dulcolax) 10 mg BIDPRN PRN RECTAL Constipation 01/23/19 10:00 02/22/19 09:59 01/29/19 10:30 Dextrose (Dextrose 50%) 25 ml Q30M PRN IV Hypoglycemia 01/21/19 19:45 02/16/19 17:32 Dextrose (Dextrose 50%) 50 ml Q30M PRN IV Hypoglycemia 01/21/19 19:45 02/16/19 17:32 Docusate Sodium (Colace) 100 mg TWICE A DAY ORAL 01/23/19 10:00 02/22/19 09:59 01/29/19 08:52 Furosemide (Lasix) 40 mg DAILY ORAL 01/22/19 09:00 02/21/19 08:59 01/29/19 08:51 Heparin Sodium (Porcine) (Heparin 5000 units/ml) 5,000 units EVERY 12 HOURS SUBQ 01/21/19 21:00 02/16/19 20:59 01/29/19 08:54 Lidocaine (Xylocaine 1% MPF 5ml) 10 ml Q4H PRN HHN cough 01/21/19 19:13 02/18/19 19:12 Lorazepam (Ativan 2mg/ml 1ml) 0.5 mg Q4H PRN IV For Anxiety 01/27/19 13:00 02/01/19 12:59 01/28/19 16:36 Mineral Oil (Fleet's Mineral Oil Enema) 133 ml DAILYPRN PRN RECTAL Constipation 01/24/19 09:30 02/23/19 09:29 01/27/19 13:38 Nitroglycerin (Ntg) 0.4 mg Q5M X 3 DOSES PRN SL Prn Chest Pain 01/21/19 19:15 02/16/19 17:33 Ondansetron HCl (Zofran) 4 mg Q6H PRN IVP Nausea & Vomiting 01/21/19 19:13 4/11/19 19:12 Polyethylene Glycol (Miralax) 17 gm BEDTIME ORAL 01/24/19 21:00 02/23/19 20:59 01/28/19 21:16 Potassium Chloride (K-Dur) 40 meq DAILY ORAL 01/25/19 11:00 02/24/19 10:59 01/29/19 08:55 Promethazine HCl/ Codeine (Phenergan with Codeine) 5 ml Q6H PRN ORAL cough 01/21/19 19:14 02/16/19 19:13 Quetiapine Fumarate (SEROquel) 25 mg Q12HR ORAL 01/21/19 21:00 02/17/19 20:59 01/29/19 08:51 Sucralfate (Carafate) 1 gm TID ORAL 01/28/19 01:15 02/27/19 01:14 01/29/19 13:26 Temazepam (Restoril) 15 mg HSPRN PRN ORAL Insomnia 01/27/19 12:45 02/01/19 12:44 01/28/19 22:13 Theophylline (Jimmy-Dur) 100 mg EVERY 12 HOURS ORAL 01/21/19 21:00 02/16/19 20:59 01/29/19 08:51 Jersey Chadwick MD Jan 29, 2019 14:17
[2019-01-29] MEDS: Albuterol/Ipratropium 3ml neb HHN PRN (15:08)
--- NOTE | 2019-01-29 15:26 | General Progress Note ---
Assessment/Plan Problem List: (1) Protein-calorie malnutrition, severe ICD Codes: E43 - Unspecified severe protein-calorie malnutrition SNOMED: 440340583, 590075083, 235953318 (2) Arthritis ICD Codes: M19.90 - Unspecified osteoarthritis, unspecified site SNOMED: 2669804 (3) UTI (urinary tract infection) ICD Codes: N39.0 - Urinary tract infection, site not specified SNOMED: 80815371 (4) Anemia ICD Codes: D64.9 - Anemia, unspecified SNOMED: 851766518 (5) Pulmonary hypertension ICD Codes: I27.20 - Pulmonary hypertension, unspecified SNOMED: 17114658 (6) Pulmonary fibrosis ICD Codes: J84.10 - Pulmonary fibrosis, unspecified SNOMED: 09020079 (7) Hypertension ICD Codes: I10 - Essential (primary) hypertension SNOMED: 46851501 (8) Cervical radiculopathy ICD Codes: M54.12 - Radiculopathy, cervical region SNOMED: 33619708 (9) Hip osteoarthritis ICD Codes: M16.9 - Osteoarthritis of hip, unspecified SNOMED: 770299732 (10) COPD exacerbation ICD Codes: J44.1 - Chronic obstructive pulmonary disease with (acute) exacerbation SNOMED: 446153699, 428087765, 480239408 (11) CHF exacerbation ICD Codes: I50.9 - Heart failure, unspecified SNOMED: 49474764, 859671919, 405116189 Status: progressing Assessment/Plan cvoering for dr chinchillaartur stephensonleonard chf copd chronic pain djd nebs prn no sob Subjective ROS Limited/Unobtainable: Yes Allergies: Coded Allergies: PENICILLINS (Verified Allergy, Unknown, SWELLING EVERYWHERE, EVEN EYES PER PATIENT, 11/24/11) Objective Last 24 Hour Vital Signs Date Time Temp Pulse Resp B/P (MAP) Pulse Ox O2 Delivery O2 Flow Rate FiO2 01/29/19 15:12 Nasal Cannula 3.0 32 01/29/19 15:12 98 Nasal Cannula 3.0 32 01/29/19 15:09 94 20 98 Nasal Cannula 3.0 32 01/29/19 15:09 32 01/29/19 12:00 99.3 74 17 123/69 (87) 98 01/29/19 09:00 Nasal Cannula 2.0 Nasal Cannula 2.0 01/29/19 08:00 98.9 83 18 115/63 (80) 94 01/29/19 04:00 98.0 88 18 134/88 (103) 98 01/29/19 00:00 98.5 85 18 130/77 (94) 100 01/28/19 21:00 Nasal Cannula 2.0 Nasal Cannula 2.0 01/28/19 20:00 98 Nasal Cannula 2.0 28 01/28/19 20:00 Nasal Cannula 2.0 28 01/28/19 20:00 98.5 88 18 139/68 (91) 100 01/28/19 16:00 98.6 79 19 119/60 (79) 98 Intake and Output 01/28/19 01/29/19 19:00 07:00 Intake Total 410 ml Balance 410 ml Intake Oral 410 ml # Voids 2 1 Height (Feet): 5 Height (Inches): 6.00 Weight (Pounds): 110 Cardiovascular: normal rate Respiratory/Chest: lungs clear Abdomen: soft Jennifer Chahal MD Jan 29, 2019 15:26
[2019-01-29 15:55] VITALS: BP 108/80
--- NOTE | 2019-01-29 16:41 | NUR ---
CASE MANAGEMENT:REVIEW 01/28/2019 SI: COPD. CHF. UTI T 98.8 HR 78 RR 20 B/P 117/55 SATS 100% ON 2L/NC NA 135 IS: K-DUR PO QD ASA PO QD LASIX PO QD HEPARIN SQ Q12 METHADONE PO Q12 SEROQUEL PO Q12 THEOPHYLLINE PO Q12 : MED/SURG STATUS 3 [facility] DCP: PATIENT IS FROM 01/29/2019 SI: COPD. CHF. UTI T 98 HR 88 RR 18 B/P 134/88 SATS 98% ON 2L/NC NO LABS TODAY IS: K-DUR PO QD ASA PO QD LASIX PO QD HEPARIN SQ Q12 METHADONE PO Q12 SEROQUEL PO Q12 THEOPHYLLINE PO Q12 : MED/SURG STATUS 3 [facility] DCP: PATIENT IS FROM
--- NOTE | 2019-01-29 19:20 | NUR ---
NURSE NOTES: Report taken from HUSSEIN Billings. Patient awake and in bed, A&Ox3. No complaints of pain. No signs of distress on 2L NC. Patient has access to bedside commode. IV site c/d/i and patent, hep locked. No skin issues present. Awaiting placement at [facility], will follow up with case management tomorrow. Bed in lowest position, call light within reach.
--- NOTE | 2019-01-29 19:23 | NUR ---
HAND-OFF: Report given to
[2019-01-29 20:00] VITALS: BP 127/62
[2019-01-29] MEDS: Miralax 17gm pkt ORAL SCH (21:00)
[2019-01-30] VITALS: BP 130/68
[2019-01-30] MEDS: Promethazine/Codeine 5ml UD ORAL PRN (02:09)
[2019-01-30 04:00] VITALS: BP 105/60
--- NOTE | 2019-01-30 07:28 | NUR ---
HAND-OFF: Report given to HUSSEIN Irby. Patient awake and VS stable. .
[2019-01-30 08:00] VITALS: BP 110/62
[2019-01-30] MEDS: Theophylline ER 100mg ORAL SCH ×2 (08:32→21:08)
[2019-01-30] MEDS: Aspirin EC 81mg tab ORAL SCH (08:32)
[2019-01-30] MEDS: Furosemide 40mg tab ORAL SCH (08:32)
[2019-01-30] MEDS: Docusate 100mg cap ORAL SCH ×2 (08:32→17:51)
[2019-01-30] MEDS: Sucralfate 1gm tab ORAL SCH ×3 (08:32→17:51)
[2019-01-30] MEDS: Heparin 5000 units/ml inj SUBQ SCH ×2 (08:34→21:12)
[2019-01-30] MEDS: Albuterol/Ipratropium 3ml neb HHN PRN (09:00)
--- NOTE | 2019-01-30 10:23 | NUR ---
PATIENT IS STABLE NO ACUTE DISTRESS.. RESTING COMFORTABLE AT THIS TIME. HAS PANIC ATTACKS DUE TO FEELING CLOSED IN ROOM NOTED DENIES NO CHEST PAIN OR DISCOMFORT...
--- NOTE | 2019-01-30 11:29 | NUR ---
*-* INSURANCE *-* ALL CLINICALS,REVIEWS HAVE BEEN FAXED TO: [employer] PLEASE FAX THE REVIEW /CLINICAL NCM: [place] P- [phone] X [facility] F- [phone]....
--- NOTE | 2019-01-30 11:29 | NUR ---
PATIENT HAS HIGH LEVEL OF ANXIETY KEEPING CLOSE OBSERVATION
[2019-01-30 12:00] VITALS: BP 117/60
--- NOTE | 2019-01-30 12:16 | Pulmonology Progress Note ---
Assessment/Plan Problems: (1) Acute respiratory failure (2) COPD exacerbation (3) Pulmonary hypertension (4) Pulmonary fibrosis (5) Elevated troponin (6) Protein-calorie malnutrition, severe (7) Hypertension Assessment/Plan all reviewed still constipated feeling better sputum has Pseudomonas cxr better, 01/24 continue abx until sputum is available CT chest reviewed, pt has extensive fibrosis and chronic changes Echo reviewed, Grade one diastolic dysfunction trial of lidocaine inhalers and chronic Methadone to suppress dyspnea. ( it is helping her a lot) f/u cardiology recommendations Poor overall prognosis. Subjective ROS Limited/Unobtainable: No Constitutional: Reports: no symptoms Respiratory: Reports: no symptoms Cardiovascular: Reports: no symptoms Allergies: Coded Allergies: PENICILLINS (Verified Allergy, Unknown, SWELLING EVERYWHERE, EVEN EYES PER PATIENT, 11/24/11) Objective Last 24 Hour Vital Signs Date Time Temp Pulse Resp B/P (MAP) Pulse Ox O2 Delivery O2 Flow Rate FiO2 01/30/19 09:04 32 01/30/19 09:01 64 18 98 Nasal Cannula 3.0 32 01/30/19 08:46 Nasal Cannula 2.0 28 01/30/19 08:45 98 Nasal Cannula 3.0 28 01/30/19 08:29 Nasal Cannula 2.0 Nasal Cannula 2.0 01/30/19 08:00 98.1 87 19 110/62 (78) 99 01/30/19 04:00 97.7 90 18 105/60 (75) 100 01/30/19 00:00 97.1 89 20 130/68 (88) 100 01/29/19 21:00 Nasal Cannula 2.0 Nasal Cannula 2.0 01/29/19 20:00 98.8 98 20 127/62 (83) 100 01/29/19 19:49 99 Nasal Cannula 2.0 28 01/29/19 19:49 Nasal Cannula 2.0 28 01/29/19 15:55 98.0 96 19 108/80 (89) 100 01/29/19 15:12 Nasal Cannula 3.0 32 01/29/19 15:12 98 Nasal Cannula 3.0 32 01/29/19 15:09 94 20 98 Nasal Cannula 3.0 32 01/29/19 15:09 32 Intake and Output 01/29/19 01/30/19 19:00 07:00 Intake Total 200 ml 720 ml Output Total 550 ml Balance 200 ml 170 ml Intake Oral 200 ml 720 ml Output Urine Total 550 ml # Voids 2 1 # Bowel Movements 1 Objective General Appearance: cachetic HEENT: normocephalic, atraumatic Respiratory/Chest: chest wall non-tender, normal breath sounds Cardiovascular: normal peripheral pulses, regular rhythm Abdomen: normal bowel sounds, soft, non tender Current Medications Medications (Trade) Dose Ordered Sig/Charly Route PRN Reason Start Time Stop Time Status Last Admin Dose Admin Albuterol/ Ipratropium (Albuterol/ Ipratropium) 3 ml Q4H PRN HHN Shortness of Breath 01/27/19 13:00 02/01/19 12:59 01/30/19 09:00 Aspirin (Ecotrin) 81 mg DAILY ORAL 01/22/19 09:00 02/18/19 08:59 01/30/19 08:32 Bisacodyl (Dulcolax) 10 mg BIDPRN PRN RECTAL Constipation 01/23/19 10:00 02/22/19 09:59 01/29/19 10:30 Dextrose (Dextrose 50%) 25 ml Q30M PRN IV Hypoglycemia 01/21/19 19:45 02/16/19 17:32 Dextrose (Dextrose 50%) 50 ml Q30M PRN IV Hypoglycemia 01/21/19 19:45 02/16/19 17:32 Docusate Sodium (Colace) 100 mg TWICE A DAY ORAL 01/23/19 10:00 02/22/19 09:59 01/30/19 08:32 Furosemide (Lasix) 40 mg DAILY ORAL 01/22/19 09:00 02/21/19 08:59 01/30/19 08:32 Heparin Sodium (Porcine) (Heparin 5000 units/ml) 5,000 units EVERY 12 HOURS SUBQ 01/21/19 21:00 02/16/19 20:59 01/30/19 08:34 Lidocaine (Xylocaine 1% MPF 5ml) 10 ml Q4H PRN HHN cough 01/21/19 19:13 02/18/19 19:12 Lorazepam (Ativan 2mg/ml 1ml) 0.5 mg Q4H PRN IV For Anxiety 01/27/19 13:00 02/01/19 12:59 01/28/19 16:36 Mineral Oil (Fleet's Mineral Oil Enema) 133 ml DAILYPRN PRN RECTAL Constipation 01/24/19 09:30 02/23/19 09:29 01/27/19 13:38 Nitroglycerin (Ntg) 0.4 mg Q5M X 3 DOSES PRN SL Prn Chest Pain 01/21/19 19:15 02/16/19 17:33 Ondansetron HCl (Zofran) 4 mg Q6H PRN IVP Nausea & Vomiting 01/21/19 19:13 02/16/19 19:12 01/29/19 22:13 Polyethylene Glycol (Miralax) 17 gm BEDTIME ORAL 01/24/19 21:00 02/23/19 20:59 01/28/19 21:16 Potassium Chloride (K-Dur) 40 meq DAILY ORAL 01/25/19 11:00 02/24/19 10:59 01/30/19 08:32 Promethazine HCl/ Codeine (Phenergan with Codeine) 5 ml Q6H PRN ORAL cough 01/21/19 19:14 02/16/19 19:13 01/30/19 02:09 Quetiapine Fumarate (SEROquel) 25 mg Q12HR ORAL 01/21/19 21:00 02/17/19 20:59 01/30/19 08:32 Sucralfate (Carafate) 1 gm TID ORAL 01/28/19 01:15 02/27/19 01:14 01/30/19 12:00 Temazepam (Restoril) 15 mg HSPRN PRN ORAL Insomnia 01/27/19 12:45 02/01/19 12:44 01/28/19 22:13 Theophylline (Jimmy-Dur) 100 mg EVERY 12 HOURS ORAL 01/21/19 21:00 02/16/19 20:59 01/30/19 08:32 Jersey Chadwick MD Jan 30, 2019 12:16
--- NOTE | 2019-01-30 12:29 | GI Progress Note ---
Assessment/Plan Problems: (1) Anemia ICD Codes: D64.9 - Anemia, unspecified SNOMED: 360679168 (2) Protein-calorie malnutrition, severe ICD Codes: E43 - Unspecified severe protein-calorie malnutrition SNOMED: 094481475, 518406211, 821075954 (3) Constipation ICD Codes: K59.00 - Constipation, unspecified SNOMED: 36842303 Status: stable Status Narrative Discussed with Dr. Mustafa Assessment/Plan hep C viral load neg bowel regimen given neg stool ob hold in patient GI procedure fu labs The patient was seen and examined at bedside and all new and available data was reviewed in the patients chart. I agree with the above findings, impression and plan. (Patient seen earlier today. Signature stamp does not reflect patient encounter time.). - Adrian Mustafa MD Subjective Gastrointestinal/Abdominal: Reports: no symptoms Subjective abdominal pain improved had multiple bowel movements yesterday Objective Last 24 Hour Vital Signs Date Time Temp Pulse Resp B/P (MAP) Pulse Ox O2 Delivery O2 Flow Rate FiO2 01/30/19 09:04 32 01/30/19 09:01 64 18 98 Nasal Cannula 3.0 32 01/30/19 08:46 Nasal Cannula 2.0 28 01/30/19 08:45 98 Nasal Cannula 3.0 28 01/30/19 08:29 Nasal Cannula 2.0 Nasal Cannula 2.0 01/30/19 08:00 98.1 87 19 110/62 (78) 99 01/30/19 04:00 97.7 90 18 105/60 (75) 100 01/30/19 00:00 97.1 89 20 130/68 (88) 100 01/29/19 21:00 Nasal Cannula 2.0 Nasal Cannula 2.0 01/29/19 20:00 98.8 98 20 127/62 (83) 100 01/29/19 19:49 99 Nasal Cannula 2.0 28 01/29/19 19:49 Nasal Cannula 2.0 28 01/29/19 15:55 98.0 96 19 108/80 (89) 100 01/29/19 15:12 Nasal Cannula 3.0 32 01/29/19 15:12 98 Nasal Cannula 3.0 32 01/29/19 15:09 94 20 98 Nasal Cannula 3.0 32 01/29/19 15:09 32 Intake and Output 01/29/19 01/30/19 19:00 07:00 Intake Total 200 ml 720 ml Output Total 550 ml Balance 200 ml 170 ml Intake Oral 200 ml 720 ml Output Urine Total 550 ml # Voids 2 1 # Bowel Movements 1 Height (Feet): 5 Height (Inches): 6.00 Weight (Pounds): 110 General Appearance: WD/WN, no apparent distress, alert Cardiovascular: normal rate Respiratory/Chest: normal breath sounds, no respiratory distress Abdominal Exam: normal bowel sounds, non tender, soft Extremities: normal range of motion, non-tender Loy Hamilton NP Jan 30, 2019 12:29
--- NOTE | 2019-01-30 13:49 | NUR ---
CASE MANAGEMENT:REVIEW 01/30/19 SI: COPD. CHF. UTI 97.1 91 18 117/60 98% ON 3L/NC IS: CARAFATE PO TID K-DUR PO QD ASA PO QD LASIX PO QD HEPARIN SQ Q12 ULICES-DUR PO Q12 : MED/SURG 3 [facility]: PATIENT HAS HAD A DISCHARGE ORDER SINCE LAST WEEK WEDNESDAY [facility] AUTOMOTIVE BRAKE ADJUSTER CO[place]E IS AWARE THAT [facility] GAVE PATIENT'S BED AWAY CO[place]TTE HAS BEEN LOOKING TO SECURE A BED FOR THIS PATIENT SINCE WEDNESDAY PATIENT WILL DISCHARGE SOON BED HAS BEEN SECURED BY [employer]
--- NOTE | 2019-01-30 14:22 | NUR ---
OOB IN CHAIR HAVING LUNCH 1 HOURS.. PATIENT VERY ANXIOUS NOTED
--- NOTE | 2019-01-30 14:52 | Cardiac Electrophysiology PN ---
Assessment/Plan Assessment/Plan 1. Type 2 NSTEMI. No CP or SOB. EF normal . ECG incomplete LBBB, LVH. On aspirin. Off Beta ehsan for asthma on steroids 2. CHF due to diastolic dysfunction with BNP >1500. On Lasix 40 mg po daily 3. Hypertension.On Lasix 4. COPD exacerbation on Abx and severe pulmonary HTN 5. Anemia. 6. UTI 8. Osteoarthritis. 9. Cervical radiculopathy. 10. Constipation, resolving DW RN Subjective Subjective Comfortable in NAD awaiting placement. Objective Last 24 Hour Vital Signs Date Time Temp Pulse Resp B/P (MAP) Pulse Ox O2 Delivery O2 Flow Rate FiO2 01/30/19 12:00 97.1 91 18 117/60 (79) 01/30/19 09:04 32 01/30/19 09:01 64 18 98 Nasal Cannula 3.0 32 01/30/19 08:46 Nasal Cannula 2.0 28 01/30/19 08:45 98 Nasal Cannula 3.0 28 01/30/19 08:29 Nasal Cannula 2.0 Nasal Cannula 2.0 01/30/19 08:00 98.1 87 19 110/62 (78) 99 01/30/19 04:00 97.7 90 18 105/60 (75) 100 01/30/19 00:00 97.1 89 20 130/68 (88) 100 01/29/19 21:00 Nasal Cannula 2.0 Nasal Cannula 2.0 01/29/19 20:00 98.8 98 20 127/62 (83) 100 01/29/19 19:49 99 Nasal Cannula 2.0 28 01/29/19 19:49 Nasal Cannula 2.0 28 01/29/19 15:55 98.0 96 19 108/80 (89) 100 01/29/19 15:12 Nasal Cannula 3.0 32 01/29/19 15:12 98 Nasal Cannula 3.0 32 01/29/19 15:09 94 20 98 Nasal Cannula 3.0 32 01/29/19 15:09 32 Intake and Output 01/29/19 01/30/19 19:00 07:00 Intake Total 200 ml 720 ml Output Total 550 ml Balance 200 ml 170 ml Intake Oral 200 ml 720 ml Output Urine Total 550 ml # Voids 2 1 # Bowel Movements 1 Objective HEENT: No JVD Respiratory/Chest: Rhonchi Cardiovascular/Chest: Normal peripheral pulses, normal rate, regular rhythm Abdomen: normal bowel sounds, non tender, soft, no organomegaly Extremities: No edema Renzo Burgess MD Jan 30, 2019 14:52
--- NOTE | 2019-01-30 14:55 | Infectious Diseases Prog Note ---
Assessment/Plan Assessment/Plan Assessment: Probable Aspiration PNA vs pneumonitis, sp Rx -sp cx PsA (R Levo/Cipro; otherwise S including Aztreonam) Pneumomediastinum-suspected to rupture R side paratracheal bleb -01/25 CXR: Suspected interstitial disease. This may be chronic due to fibrosis. Pneumomediastinum. -01/20 CXR: Increasing bilateral parenchymal opacities, likely reflecting increasing edema or infiltrate superimposed on pre-existing chronic opacities. Central mediastinal lucency, likely reflects pneumomediastinum described on recent chest CT -CTA chest: Negative for acute pulmonary embolus or other acute thoracic vascular pathology. Pneumomediastinum. Suspect due to a ruptured right-sided medial bleb. Evidence of extensive chronic pulmonary parenchymal interstitial disease, with areas of honeycombing and bronchiectasis. No definite acute pulmonary parenchymal process. Ectatic main and left main pulmonary arteries, suggestive of pulmonary arterial hypertension. Bullae and subpleural blebs, may be related to the interstitial fibrotic process or could represent COPD changes -CXR: Cardiomegaly. Bilateral extensive interstitial and airspace opacities, slightly increased from but similar in distribution to prior study of 2017. Suspect component of chronic interstitial fibrosis with superimposed acute edema or infiltrates -influenza sc neg Afebrile No leukocytosis AST elevation; improving -HIV ab sc neg -Hep C+, VL neg; cleared infection DM HTN FL CAD CHF cervical radiculopathy CVA asthma COPD /Emphysema sp Bilateral hip replacement residential resident Plan: -Continue to monitor off abx -01/25 SP Aztreonam #7 -01/24 SP Azithromycin #5 -01/17 SP Ceftriaxone x1 -f/u cx -monitor CBC/CMP, temperatures -aspiration precautions Subjective Allergies: Coded Allergies: PENICILLINS (Verified Allergy, Unknown, SWELLING EVERYWHERE, EVEN EYES PER PATIENT, 11/24/11) Subjective afebrile at 2l NC no leukocytosis Objective Vital Signs Last 24 Hour Vital Signs Date Time Temp Pulse Resp B/P (MAP) Pulse Ox O2 Delivery O2 Flow Rate FiO2 01/30/19 12:00 97.1 91 18 117/60 (79) 01/30/19 09:04 32 01/30/19 09:01 64 18 98 Nasal Cannula 3.0 32 01/30/19 08:46 Nasal Cannula 2.0 28 01/30/19 08:45 98 Nasal Cannula 3.0 28 01/30/19 08:29 Nasal Cannula 2.0 Nasal Cannula 2.0 01/30/19 08:00 98.1 87 19 110/62 (78) 99 01/30/19 04:00 97.7 90 18 105/60 (75) 100 01/30/19 00:00 97.1 89 20 130/68 (88) 100 01/29/19 21:00 Nasal Cannula 2.0 Nasal Cannula 2.0 01/29/19 20:00 98.8 98 20 127/62 (83) 100 01/29/19 19:49 99 Nasal Cannula 2.0 28 01/29/19 19:49 Nasal Cannula 2.0 28 01/29/19 15:55 98.0 96 19 108/80 (89) 100 01/29/19 15:12 Nasal Cannula 3.0 32 01/29/19 15:12 98 Nasal Cannula 3.0 32 01/29/19 15:09 94 20 98 Nasal Cannula 3.0 32 01/29/19 15:09 32 Height (Feet): 5 Height (Inches): 6.00 Weight (Pounds): 110 Objective GENERAL: Calm in bed, O2 NC, slight short of breath. Oriented x2, no acute distress. CARDIOVASCULAR: No murmurs. LUNGS: Poor air exchange. ABDOMEN: Bowel sounds distant. EXTREMITIES: No cyanosis, clubbing, or edema. NEUROLOGIC: The patient moves all extremities, slightly weak. Current Medications Medications (Trade) Dose Ordered Sig/Charly Route PRN Reason Start Time Stop Time Status Last Admin Dose Admin Al Hydroxide/Mg Hydroxide (Mylanta) 30 ml Q6H PRN ORAL stomach upset 01/30/19 14:30 03/01/19 14:29 01/30/19 14:46 Albuterol/ Ipratropium (Albuterol/ Ipratropium) 3 ml Q4H PRN HHN Shortness of Breath 01/27/19 13:00 02/01/19 12:59 01/30/19 09:00 Aspirin (Ecotrin) 81 mg DAILY ORAL 01/22/19 09:00 02/18/19 08:59 01/30/19 08:32 Bisacodyl (Dulcolax) 10 mg BIDPRN PRN RECTAL Constipation 01/23/19 10:00 02/22/19 09:59 01/29/19 10:30 Dextrose (Dextrose 50%) 25 ml Q30M PRN IV Hypoglycemia 01/21/19 19:45 02/16/19 17:32 Dextrose (Dextrose 50%) 50 ml Q30M PRN IV Hypoglycemia 01/21/19 19:45 02/16/19 17:32 Docusate Sodium (Colace) 100 mg TWICE A DAY ORAL 01/23/19 10:00 02/22/19 09:59 01/30/19 08:32 Furosemide (Lasix) 40 mg DAILY ORAL 01/22/19 09:00 02/21/19 08:59 01/30/19 08:32 Heparin Sodium (Porcine) (Heparin 5000 units/ml) 5,000 units EVERY 12 HOURS SUBQ 01/21/19 21:00 02/16/19 20:59 01/30/19 08:34 Lidocaine (Xylocaine 1% MPF 5ml) 10 ml Q4H PRN HHN cough 01/21/19 19:13 02/18/19 19:12 Lorazepam (Ativan 2mg/ml 1ml) 0.5 mg Q4H PRN IV For Anxiety 01/27/19 13:00 02/01/19 12:59 01/28/19 16:36 Mineral Oil (Fleet's Mineral Oil Enema) 133 ml DAILYPRN PRN RECTAL Constipation 01/24/19 09:30 02/23/19 09:29 01/27/19 13:38 Nitroglycerin (Ntg) 0.4 mg Q5M X 3 DOSES PRN SL Prn Chest Pain 01/21/19 19:15 02/16/19 17:33 Ondansetron HCl (Zofran) 4 mg Q6H PRN IVP Nausea & Vomiting 01/21/19 19:13 02/16/19 19:12 01/29/19 22:13 Polyethylene Glycol (Miralax) 17 gm BEDTIME ORAL 01/24/19 21:00 02/23/19 20:59 01/28/19 21:16 Potassium Chloride (K-Dur) 40 meq DAILY ORAL 01/25/19 11:00 02/24/19 10:59 01/30/19 08:32 Promethazine HCl/ Codeine (Phenergan with Codeine) 5 ml Q6H PRN ORAL cough 01/21/19 19:14 02/16/19 19:13 01/30/19 02:09 Quetiapine Fumarate (SEROquel) 25 mg Q12HR ORAL 01/21/19 21:00 02/17/19 20:59 01/30/19 08:32 Sucralfate (Carafate) 1 gm TID ORAL 01/28/19 01:15 02/27/19 01:14 01/30/19 12:00 Temazepam (Restoril) 15 mg HSPRN PRN ORAL Insomnia 01/27/19 12:45 02/01/19 12:44 01/28/19 22:13 Theophylline (Jimmy-Dur) 100 mg EVERY 12 HOURS ORAL 01/21/19 21:00 02/16/19 20:59 01/30/19 08:32 Katt Ken M.D. Jan 30, 2019 14:55
--- NOTE | 2019-01-30 15:06 | NUR ---
CALLED Sadia SANTIZO AWAITING PROFESSOR OF FINANCE BACK REGARDING PAIN MEDICATION ORDER.. NO ACUTE DISTRESS, RESTING AT THIS TIME
[2019-01-30 16:00] VITALS: BP 110/63
--- NOTE | 2019-01-30 16:10 | NUR ---
P.T WEEKLY PROGRESS NOTES: PATIENT DEMONSTRATED SLOW PROGRESS IN THERAPY DUE TO POOR PARTICIPATION. PATIENT IS LIMITED MOSTLY BY POOR ACTIVITY TOLERANCE , FEAR AND ANXIETY WHICH TRIGGERS WHEN PERFORMING ACTIVITIES IN SITTING AND STANDING POSITION. ASSISTANCE FLUCTUATES FROM [facility]-MOD A X 1 FOR BED MOBILITY AND TRANSFER ACTIVITIES DEPENDING ON ENDURANCE LEVEL AND MOTIVATION. PATIENT ABLE TO AMBULATE 5-20 FEET USING THE FWW WITH MIN A X 1. PATIENT WILL CONTINUE TO BENEFIT FROM SKILLED P.T SERVICES TO INCREASE ACTIVITY TOLERANCE ,SAFETY AND MOBILITY INDEPENDENCE. RECOMMEND RETURN TO SNF FOR FURTHER REHAB AT [place].
--- NOTE | 2019-01-30 17:35 | NUR ---
PATIENT CONTINUE TO HAVE A HIGH LEVEL OF ANXIETY FEELING ANXIOUS.. DENIES NO CHEST PAIN ... ENCOURAGE TO TAKE SLOW DEEP BREATH.. CALL LIGHT IN REACH
--- NOTE | 2019-01-30 18:10 | NUR ---
second call to radha Benitez no call back..
--- NOTE | 2019-01-30 18:49 | NUR ---
patient requested for pain medication no order.. 3 call noted.. will endorse to on coming nurse . patient request call light in reach, no signs or symptom of shortness of breath
[2019-01-30 20:00] VITALS: BP 115/62
[2019-01-30] MEDS: Miralax 17gm pkt ORAL SCH (21:00)
--- NOTE | 2019-01-30 21:56 | General Progress Note ---
Assessment/Plan Problem List: (1) Protein-calorie malnutrition, severe ICD Codes: E43 - Unspecified severe protein-calorie malnutrition SNOMED: 855743600, 125262346, 912907476 (2) Arthritis ICD Codes: M19.90 - Unspecified osteoarthritis, unspecified site SNOMED: 9034438 (3) UTI (urinary tract infection) ICD Codes: N39.0 - Urinary tract infection, site not specified SNOMED: 74934004 (4) Anemia ICD Codes: D64.9 - Anemia, unspecified SNOMED: 252415461 (5) Pulmonary hypertension ICD Codes: I27.20 - Pulmonary hypertension, unspecified SNOMED: 17616286 (6) Pulmonary fibrosis ICD Codes: J84.10 - Pulmonary fibrosis, unspecified SNOMED: 79367285 (7) Hypertension ICD Codes: I10 - Essential (primary) hypertension SNOMED: 69894034 (8) Cervical radiculopathy ICD Codes: M54.12 - Radiculopathy, cervical region SNOMED: 65895430 (9) Hip osteoarthritis ICD Codes: M16.9 - Osteoarthritis of hip, unspecified SNOMED: 351434029 (10) COPD exacerbation ICD Codes: J44.1 - Chronic obstructive pulmonary disease with (acute) exacerbation SNOMED: 762446310, 229238770, 759121276 (11) CHF exacerbation ICD Codes: I50.9 - Heart failure, unspecified SNOMED: 44016730, 354934433, 159629249 Status: progressing Assessment/Plan cvoering for rikki gonzalez chf copd chronic pain pulm htn htn vitals holding no acute events no dyspnea Subjective ROS Limited/Unobtainable: Yes Allergies: Coded Allergies: PENICILLINS (Verified Allergy, Unknown, SWELLING EVERYWHERE, EVEN EYES PER PATIENT, 11/24/11) Objective Last 24 Hour Vital Signs Date Time Temp Pulse Resp B/P (MAP) Pulse Ox O2 Delivery O2 Flow Rate FiO2 01/30/19 19:40 Nasal Cannula 2.0 28 01/30/19 19:40 100 Nasal Cannula 2.0 28 01/30/19 16:00 97.5 96 20 110/63 (79) 100 01/30/19 12:00 97.1 91 18 117/60 (79) 01/30/19 09:04 32 01/30/19 09:01 64 18 98 Nasal Cannula 3.0 32 01/30/19 08:46 Nasal Cannula 2.0 28 01/30/19 08:45 98 Nasal Cannula 3.0 28 01/30/19 08:29 Nasal Cannula 2.0 Nasal Cannula 2.0 01/30/19 08:00 98.1 87 19 110/62 (78) 99 01/30/19 04:00 97.7 90 18 105/60 (75) 100 01/30/19 00:00 97.1 89 20 130/68 (88) 100 Intake and Output 01/29/19 01/30/19 19:00 07:00 Intake Total 200 ml 720 ml Output Total 550 ml Balance 200 ml 170 ml Intake Oral 200 ml 720 ml Output Urine Total 550 ml # Voids 2 1 # Bowel Movements 1 Height (Feet): 5 Height (Inches): 6.00 Weight (Pounds): 110 Neck: supple Cardiovascular: normal rate Abdomen: soft Jennifer Chahal MD Jan 30, 2019 21:56
[2019-01-31] VITALS (7 sets, daily range): BP systolic 92–127; BP diastolic 54–87
[2019-01-31] MEDS: LORazepam Inj 2mg/ml 1ml IV PRN ×2 (04:55→22:37)
[2019-01-31 07:18] LABS: BASOPHILS % (AUTO) 1.3 % (0.0-2.0); EOSINOPHILS % (AUTO) 3.9 % (0.0-3.0); HEMATOCRIT 30.9 % (37.0-47.0); HEMOGLOBIN 9.7 G/DL (12.0-16.0); LYMPHOCYTES % (AUTO) 14.3 % (20.0-45.0); MEAN CORPUSCULAR VOLUME 87 FL (80-99); MONOCYTES % (AUTO) 5.8 % (1.0-10.0); NEUTROPHILS % (AUTO) 74.7 % (45.0-75.0); PLATELET COUNT 312 K/UL (150-450); RED BLOOD COUNT 3.57 M/UL (4.20-5.40); RED CELL DISTRIBUTION WIDTH 17.8 % (11.6-14.8); WHITE BLOOD COUNT 8.2 K/UL (4.8-10.8)
--- NOTE | 2019-01-31 07:45 | NUR ---
HAND-OFF: Report given to Surekha mendozaPatient in stable condition
[2019-01-31] MEDS: Albuterol/Ipratropium 3ml neb HHN PRN (08:00)
--- NOTE | 2019-01-31 08:00 | NUR ---
CASE MANAGEMENT:REVIEW 01/31/19 SI: COPD. CHF. UTI 98.0 90 19 110/85 100% ON 2L/NC IS: CARAFATE PO TID K-DUR PO QD ASA PO QD LASIX PO QD HEPARIN SQ Q12 SEROQUEL PO Q12 ULICES-DUR PO Q12 : MED/SURG 3 [place]: PATIENT HAS HAD A DISCHARGE ORDER SINCE LAST WEEK [facility] ADMINISTRATIVE SUPPORT ASSISTANT [facility] IS AWARE THAT GAVE PATIENT'S BED AWAY [facility] HAS BEEN LOOKING TO SECURE A BED FOR THIS PATIENT SINCE WEDNESDAY (01/26/19) PATIENT WILL DISCHARGE SOON BED HAS BEEN SECURED BY [facility]
--- NOTE | 2019-01-31 08:05 | NUR ---
DISCHARGE PLAN PATIENT LOST HER BED AT [facility] IS CURRENTLY TRYING TO FIND ANOTHER SNF BED FOR IT'S MEMBER SOON A BED HAS BEEN SECURED PATIENT WILL DISCHARGE
[2019-01-31 08:15] LABS: ANION GAP 10 mmol/L (5-15); BLOOD UREA NITROGEN 15 mg/dL (7-18); CALCIUM 10.3 MG/DL (8.5-10.1); CARBON DIOXIDE 26 MMOL/L (21-32); CHLORIDE 98 MMOL/L (98-107); CREATININE 0.7 MG/DL (0.55-1.30); POTASSIUM 4.3 MMOL/L (3.5-5.1); SODIUM 134 MMOL/L (136-145)
[2019-01-31] MEDS: Sucralfate 1gm tab ORAL SCH ×3 (08:37→18:06)
[2019-01-31] MEDS: Aspirin EC 81mg tab ORAL SCH (08:37)
[2019-01-31] MEDS: Promethazine/Codeine 5ml UD ORAL PRN ×2 (08:37→16:35)
[2019-01-31] MEDS: Furosemide 40mg tab ORAL SCH (08:37)
[2019-01-31] MEDS: Docusate 100mg cap ORAL SCH ×2 (08:37→18:06)
[2019-01-31] MEDS: Theophylline ER 100mg ORAL SCH ×2 (08:37→22:17)
[2019-01-31] MEDS: Heparin 5000 units/ml inj SUBQ SCH ×2 (08:44→22:21)
--- NOTE | 2019-01-31 09:52 | NUR ---
RECEIVED PATIENT IN BED ALERT AND AWAKE.. NO RESPIRATORY DISTRESS OR SOB ENCOURAGE TO COUGH AND DEEP WHILE IN BED. PATIENT HAS GENERALIZED PAIN AND DISCOMFORT... SHE STATED DUE TO ARTHRITIS OFFERED LAXATIVE REFUSED AT THIS TIME.. NO ACUTE DISTRESS... PATIENT IS A FALL RISK KEEPING CLOSE OBSERVATION ON PATIENT CALL LIGHT IN REACH
[2019-01-31] MEDS ORDERED: Miralax 17gm pkt ORAL PRN (11:30)
--- NOTE | 2019-01-31 11:38 | GI Progress Note ---
Assessment/Plan Problems: (1) Anemia ICD Codes: D64.9 - Anemia, unspecified SNOMED: 274969517 (2) Protein-calorie malnutrition, severe ICD Codes: E43 - Unspecified severe protein-calorie malnutrition SNOMED: 961482830, 707598629, 591593554 (3) Constipation ICD Codes: K59.00 - Constipation, unspecified SNOMED: 98344152 Status: stable Status Narrative Discussed with Dr. Mustafa. Assessment/Plan okay for DC per GI standpoint hep C viral load neg bowel regimen given neg stool ob hold in patient GI procedure fu labs The patient was seen and examined at bedside and all new and available data was reviewed in the patients chart. I agree with the above findings, impression and plan. (Patient seen earlier today. Signature stamp does not reflect patient encounter time.). - Adrian Mustafa MD Subjective Subjective abdominal pain improved reported BM Objective Last 24 Hour Vital Signs Date Time Temp Pulse Resp B/P (MAP) Pulse Ox O2 Delivery O2 Flow Rate FiO2 01/31/19 09:40 97.8 86 21 119/81 (94) 98 01/31/19 09:00 Nasal Cannula 2.0 Nasal Cannula 2.0 01/31/19 08:06 71 20 98 Nasal Cannula 2.0 28 01/31/19 08:01 68 20 99 Nasal Cannula 2.0 28 01/31/19 08:01 Nasal Cannula 2.0 28 01/31/19 08:01 99 Nasal Cannula 2.0 28 01/31/19 08:00 98.4 92 20 111/87 (95) 99 01/31/19 04:00 98.0 19 110/85 (93) 100 01/31/19 00:00 97.9 90 18 109/82 (91) 100 01/30/19 21:00 Nasal Cannula 2.0 Nasal Cannula 2.0 01/30/19 20:00 98.0 87 19 115/62 (79) 100 01/30/19 19:40 Nasal Cannula 2.0 28 01/30/19 19:40 100 Nasal Cannula 2.0 28 01/30/19 16:00 97.5 96 20 110/63 (79) 100 01/30/19 12:00 97.1 91 18 117/60 (79) Intake and Output 01/30/19 01/31/19 19:00 07:00 Intake Total 2300 ml 660 ml Output Total 650 ml Balance 2300 ml 10 ml Intake Oral 2300 ml 660 ml Output Urine Total 650 ml # Voids 8 Laboratory Tests Test 01/31/19 06:16 White Blood Count 8.2 K/UL (4.8-10.8) Red Blood Count 3.57 M/UL (4.20-5.40) L Hemoglobin 9.7 G/DL (12.0-16.0) L Hematocrit 30.9 % (37.0-47.0) L Mean Corpuscular Volume 87 FL (80-99) Mean Corpuscular Hemoglobin 27.3 PG (27.0-31.0) Mean Corpuscular Hemoglobin Concent 31.4 G/DL (32.0-36.0) L Red Cell Distribution Width 17.8 % (11.6-14.8) H Platelet Count 312 K/UL (150-450) Mean Platelet Volume 6.3 FL (6.5-10.1) L Neutrophils (%) (Auto) 74.7 % (45.0-75.0) Lymphocytes (%) (Auto) 14.3 % (20.0-45.0) L Monocytes (%) (Auto) 5.8 % (1.0-10.0) Eosinophils (%) (Auto) 3.9 % (0.0-3.0) H Basophils (%) (Auto) 1.3 % (0.0-2.0) Sodium Level 134 MMOL/L (136-145) L Potassium Level 4.3 MMOL/L (3.5-5.1) Chloride Level 98 MMOL/L (98-107) Carbon Dioxide Level 26 MMOL/L (21-32) Anion Gap 10 mmol/L (5-15) Blood Urea Nitrogen 15 mg/dL (7-18) Creatinine 0.7 MG/DL (0.55-1.30) Estimat Glomerular Filtration Rate mL/min (>60) Glucose Level 86 MG/DL (74-106) Calcium Level 10.3 MG/DL (8.5-10.1) H Height (Feet): 5 Height (Inches): 6.00 Weight (Pounds): 110 General Appearance: WD/WN, no apparent distress, alert Cardiovascular: normal rate Respiratory/Chest: normal breath sounds, no respiratory distress Abdominal Exam: normal bowel sounds, non tender, soft Extremities: normal range of motion, non-tender Loy Hamilton NP Jan 31, 2019 11:38
--- NOTE | 2019-01-31 11:39 | Pulmonology Progress Note ---
Assessment/Plan Problems: (1) Acute respiratory failure (2) COPD exacerbation (3) Pulmonary hypertension (4) Pulmonary fibrosis (5) Elevated troponin (6) Protein-calorie malnutrition, severe (7) Hypertension Assessment/Plan all reviewed still constipated feeling better sputum has Pseudomonas cxr better, 01/24 continue abx until sputum is available CT chest reviewed, pt has extensive fibrosis and chronic changes Echo reviewed, Grade one diastolic dysfunction trial of lidocaine inhalers and chronic Methadone to suppress dyspnea. ( it is helping her a lot) f/u cardiology recommendations Poor overall prognosis. Subjective ROS Limited/Unobtainable: No Constitutional: Reports: no symptoms HEENT: Repors: no symptoms Respiratory: Reports: no symptoms Allergies: Coded Allergies: PENICILLINS (Verified Allergy, Unknown, SWELLING EVERYWHERE, EVEN EYES PER PATIENT, 11/24/11) Objective Last 24 Hour Vital Signs Date Time Temp Pulse Resp B/P (MAP) Pulse Ox O2 Delivery O2 Flow Rate FiO2 01/31/19 09:40 97.8 86 21 119/81 (94) 98 01/31/19 09:00 Nasal Cannula 2.0 Nasal Cannula 2.0 01/31/19 08:06 71 20 98 Nasal Cannula 2.0 28 01/31/19 08:01 68 20 99 Nasal Cannula 2.0 28 01/31/19 08:01 Nasal Cannula 2.0 28 01/31/19 08:01 99 Nasal Cannula 2.0 28 01/31/19 08:00 98.4 92 20 111/87 (95) 99 01/31/19 04:00 98.0 19 110/85 (93) 100 01/31/19 00:00 97.9 90 18 109/82 (91) 100 01/30/19 21:00 Nasal Cannula 2.0 Nasal Cannula 2.0 01/30/19 20:00 98.0 87 19 115/62 (79) 100 01/30/19 19:40 Nasal Cannula 2.0 28 01/30/19 19:40 100 Nasal Cannula 2.0 28 01/30/19 16:00 97.5 96 20 110/63 (79) 100 01/30/19 12:00 97.1 91 18 117/60 (79) Intake and Output 01/30/19 01/31/19 19:00 07:00 Intake Total 2300 ml 660 ml Output Total 650 ml Balance 2300 ml 10 ml Intake Oral 2300 ml 660 ml Output Urine Total 650 ml # Voids 8 Objective General Appearance: cachetic HEENT: normocephalic, atraumatic Respiratory/Chest: chest wall non-tender, normal breath sounds Cardiovascular: normal peripheral pulses, regular rhythm Abdomen: normal bowel sounds, soft, non tender Laboratory Tests 01/31/19 06:16: White Blood Count 8.2, Red Blood Count 3.57L, Hemoglobin 9.7L, Hematocrit 30.9L , Mean Corpuscular Volume 87, Mean Corpuscular Hemoglobin 27.3, Mean Corpuscular Hemoglobin Concent 31.4L, Red Cell Distribution Width 17.8H, Platelet Count 312, Mean Platelet Volume 6.3L, Neutrophils (%) (Auto) 74.7, Lymphocytes (%) (Auto) 14.3L, Monocytes (%) (Auto) 5.8, Eosinophils (%) (Auto) 3.9H, Basophils (%) (Auto) 1.3, Sodium Level 134L, Potassium Level 4.3, Chloride Level 98, Carbon Dioxide Level 26, Anion Gap 10, Blood Urea Nitrogen 15 , Creatinine 0.7, Estimat Glomerular Filtration Rate , Glucose Level 86, Calcium Level 10.3H Current Medications Medications (Trade) Dose Ordered Sig/Charly Route PRN Reason Start Time Stop Time Status Last Admin Dose Admin Al Hydroxide/Mg Hydroxide (Mylanta) 30 ml Q6H PRN ORAL stomach upset 01/30/19 14:30 03/01/19 14:29 01/31/19 08:37 Albuterol/ Ipratropium (Albuterol/ Ipratropium) 3 ml Q4H PRN HHN Shortness of Breath 01/27/19 13:00 02/01/19 12:59 01/31/19 08:00 Aspirin (Ecotrin) 81 mg DAILY ORAL 01/22/19 09:00 02/18/19 08:59 01/31/19 08:37 Bisacodyl (Dulcolax) 10 mg BIDPRN PRN RECTAL Constipation 01/23/19 10:00 02/22/19 09:59 01/29/19 10:30 Dextrose (Dextrose 50%) 25 ml Q30M PRN IV Hypoglycemia 01/21/19 19:45 02/16/19 17:32 Dextrose (Dextrose 50%) 50 ml Q30M PRN IV Hypoglycemia 01/21/19 19:45 02/16/19 17:32 Docusate Sodium (Colace) 100 mg TWICE A DAY ORAL 01/23/19 10:00 02/22/19 09:59 01/31/19 08:37 Furosemide (Lasix) 40 mg DAILY ORAL 01/22/19 09:00 02/21/19 08:59 01/31/19 08:37 Heparin Sodium (Porcine) (Heparin 5000 units/ml) 5,000 units EVERY 12 HOURS SUBQ 01/21/19 21:00 02/16/19 20:59 01/31/19 08:44 Ibuprofen (Motrin) 600 mg Q6H PRN ORAL For Pain 01/31/19 11:30 03/02/19 11:29 UNV Lidocaine (Xylocaine 1% MPF 5ml) 10 ml Q4H PRN HHN cough 01/21/19 19:13 02/18/19 19:12 Lorazepam (Ativan 2mg/ml 1ml) 0.5 mg Q4H PRN IV For Anxiety 01/27/19 13:00 02/01/19 12:59 01/31/19 04:55 Mineral Oil (Fleet's Mineral Oil Enema) 133 ml DAILYPRN PRN RECTAL Constipation 01/24/19 09:30 02/23/19 09:29 01/27/19 13:38 Nitroglycerin (Ntg) 0.4 mg Q5M X 3 DOSES PRN SL Prn Chest Pain 01/21/19 19:15 02/16/19 17:33 Ondansetron HCl (Zofran) 4 mg Q6H PRN IVP Nausea & Vomiting 01/21/19 19:13 02/16/19 19:12 01/29/19 22:13 Polyethylene Glycol (Miralax) 17 gm BEDTIME ORAL 01/24/19 21:00 02/23/19 20:59 01/28/19 21:16 Polyethylene Glycol (Miralax) 17 gm DAILY PRN ORAL Constipation 01/31/19 11:30 03/02/19 11:29 UNV Potassium Chloride (K-Dur) 40 meq DAILY ORAL 01/25/19 11:00 02/24/19 10:59 01/31/19 08:38 Promethazine HCl/ Codeine (Phenergan with Codeine) 5 ml Q6H PRN ORAL cough 01/21/19 19:14 02/16/19 19:13 01/31/19 08:37 Quetiapine Fumarate (SEROquel) 25 mg Q12HR ORAL 01/21/19 21:00 02/17/19 20:59 01/31/19 08:37 Sucralfate (Carafate) 1 gm TID ORAL 01/28/19 01:15 02/27/19 01:14 01/31/19 08:37 Temazepam (Restoril) 15 mg HSPRN PRN ORAL Insomnia 01/27/19 12:45 02/01/19 12:44 01/30/19 21:08 Theophylline (Jimmy-Dur) 100 mg EVERY 12 HOURS ORAL 01/21/19 21:00 02/16/19 20:59 01/31/19 08:37 Jersey Chadwick MD Jan 31, 2019 11:39
--- NOTE | 2019-01-31 14:40 | NUR ---
*-* INSURANCE *-* ALL CLINICALS,REVIEWS HAVE BEEN FAXED TO: [employer] PLEASE FAX THE REVIEW /CLINICAL NCM: [facility] P- [phone] X [facility] F- [phone].... Addendum: 02/01/19 at 0912 by LISETTE BERNABE LVN LVN WE ARE LEAVING MESSAGES DAILY FOR [facility] REGARDING DISCHARGE PATIENT LOST HER BED AT [facility]. [facility] SAID THEIR ABORIGINAL EDUCATION WORKER COORDINATOR WILL SECURE ANOTHER BED FOR THIS PATIENT AND WE HAVE BEEN WAITING SINCE LAST WEEK. DAILY MESSAGES HAVE BEEN LEFT FOR [facility] REQUESTING BED
--- NOTE | 2019-01-31 15:26 | Cardiac Electrophysiology PN ---
Assessment/Plan Assessment/Plan 1. Type 2 NSTEMI. No CP or SOB. EF normal . ECG incomplete LBBB, LVH. On aspirin. Off Beta ehsan for asthma on steroids 2. CHF due to diastolic dysfunction with BNP >1500. On Lasix 40 mg po daily 3. Hypertension. On Lasix 4. COPD exacerbation and severe pulmonary HTN 5. Anemia. 6. UTI 8. Osteoarthritis. 9. Cervical radiculopathy. 10. Constipation, resolving DW RN Subjective Subjective Comfortable in NAD Objective Last 24 Hour Vital Signs Date Time Temp Pulse Resp B/P (MAP) Pulse Ox O2 Delivery O2 Flow Rate FiO2 01/31/19 12:35 97.8 01/31/19 12:00 97.5 99 18 92/55 (67) 100 01/31/19 09:40 97.8 86 21 119/81 (94) 98 01/31/19 09:00 Nasal Cannula 2.0 Nasal Cannula 2.0 01/31/19 08:06 71 20 98 Nasal Cannula 2.0 28 01/31/19 08:01 68 20 99 Nasal Cannula 2.0 28 01/31/19 08:01 Nasal Cannula 2.0 28 01/31/19 08:01 99 Nasal Cannula 2.0 28 01/31/19 08:00 98.4 92 20 111/87 (95) 99 01/31/19 04:00 98.0 19 110/85 (93) 100 01/31/19 00:00 97.9 90 18 109/82 (91) 100 01/30/19 21:00 Nasal Cannula 2.0 Nasal Cannula 2.0 01/30/19 20:00 98.0 87 19 115/62 (79) 100 01/30/19 19:40 Nasal Cannula 2.0 28 01/30/19 19:40 100 Nasal Cannula 2.0 28 01/30/19 16:00 97.5 96 20 110/63 (79) 100 Intake and Output 01/30/19 01/31/19 19:00 07:00 Intake Total 2300 ml 660 ml Output Total 650 ml Balance 2300 ml 10 ml Intake Oral 2300 ml 660 ml Output Urine Total 650 ml # Voids 8 Laboratory Tests Test 01/31/19 06:16 White Blood Count 8.2 K/UL (4.8-10.8) Red Blood Count 3.57 M/UL (4.20-5.40) L Hemoglobin 9.7 G/DL (12.0-16.0) L Hematocrit 30.9 % (37.0-47.0) L Mean Corpuscular Volume 87 FL (80-99) Mean Corpuscular Hemoglobin 27.3 PG (27.0-31.0) Mean Corpuscular Hemoglobin Concent 31.4 G/DL (32.0-36.0) L Red Cell Distribution Width 17.8 % (11.6-14.8) H Platelet Count 312 K/UL (150-450) Mean Platelet Volume 6.3 FL (6.5-10.1) L Neutrophils (%) (Auto) 74.7 % (45.0-75.0) Lymphocytes (%) (Auto) 14.3 % (20.0-45.0) L Monocytes (%) (Auto) 5.8 % (1.0-10.0) Eosinophils (%) (Auto) 3.9 % (0.0-3.0) H Basophils (%) (Auto) 1.3 % (0.0-2.0) Sodium Level 134 MMOL/L (136-145) L Potassium Level 4.3 MMOL/L (3.5-5.1) Chloride Level 98 MMOL/L (98-107) Carbon Dioxide Level 26 MMOL/L (21-32) Anion Gap 10 mmol/L (5-15) Blood Urea Nitrogen 15 mg/dL (7-18) Creatinine 0.7 MG/DL (0.55-1.30) Estimat Glomerular Filtration Rate mL/min (>60) Glucose Level 86 MG/DL (74-106) Calcium Level 10.3 MG/DL (8.5-10.1) H Objective HEENT: No JVD Respiratory/Chest: Bilateral Rhonchi Cardiovascular/Chest: Normal peripheral pulses, normal rate, regular rhythm Abdomen: normal bowel sounds, non tender, soft, no organomegaly Extremities: No edema Renzo Burgess MD Jan 31, 2019 15:26
--- NOTE | 2019-01-31 15:32 | NUR ---
DAUGHTER AT BEDSIDE GAVE DULCOLAX DUE TO PATIENT FEELING CONSTIPATED. AWAITING ON RESULTS NOTED NO ACUTE DISTRESS.. NO RESPIRATORY DISTRESS OR SOB OXYGEN @ 2L N/C ..PLACED HEAD OF THE BED UP 40 DEGREES FOLLOWING ASPIRATION PRECAUTION CALL MAGAN N REACH
--- NOTE | 2019-01-31 16:27 | Infectious Diseases Prog Note ---
Assessment/Plan Assessment/Plan Assessment: Probable Aspiration PNA vs pneumonitis, sp Rx -sp cx PsA (R Levo/Cipro; otherwise S including Aztreonam) Pneumomediastinum-suspected to rupture R side paratracheal bleb -01/25 CXR: Suspected interstitial disease. This may be chronic due to fibrosis. Pneumomediastinum. -01/20 CXR: Increasing bilateral parenchymal opacities, likely reflecting increasing edema or infiltrate superimposed on pre-existing chronic opacities. Central mediastinal lucency, likely reflects pneumomediastinum described on recent chest CT -CTA chest: Negative for acute pulmonary embolus or other acute thoracic vascular pathology. Pneumomediastinum. Suspect due to a ruptured right-sided medial bleb. Evidence of extensive chronic pulmonary parenchymal interstitial disease, with areas of honeycombing and bronchiectasis. No definite acute pulmonary parenchymal process. Ectatic main and left main pulmonary arteries, suggestive of pulmonary arterial hypertension. Bullae and subpleural blebs, may be related to the interstitial fibrotic process or could represent COPD changes -CXR: Cardiomegaly. Bilateral extensive interstitial and airspace opacities, slightly increased from but similar in distribution to prior study of 2017. Suspect component of chronic interstitial fibrosis with superimposed acute edema or infiltrates -influenza sc neg Afebrile No leukocytosis AST elevation; improving -HIV ab sc neg -Hep C+, VL neg; cleared infection DM HTN ID CAD CHF cervical radiculopathy CVA asthma COPD /Emphysema sp Bilateral hip replacement care home resident Plan: -Continue to monitor off abx -01/25 SP Aztreonam #7 -01/24 SP Azithromycin #5 -01/17 SP Ceftriaxone x1 -f/u cx -monitor CBC/CMP, temperatures -aspiration precautions Subjective Allergies: Coded Allergies: PENICILLINS (Verified Allergy, Unknown, SWELLING EVERYWHERE, EVEN EYES PER PATIENT, 11/24/11) Subjective afebrile at 2l NC no leukocytosis off abx Objective Vital Signs Last 24 Hour Vital Signs Date Time Temp Pulse Resp B/P (MAP) Pulse Ox O2 Delivery O2 Flow Rate FiO2 01/31/19 12:35 97.8 01/31/19 12:00 97.5 99 18 92/55 (67) 100 01/31/19 09:40 97.8 86 21 119/81 (94) 98 01/31/19 09:00 Nasal Cannula 2.0 Nasal Cannula 2.0 01/31/19 08:06 71 20 98 Nasal Cannula 2.0 28 01/31/19 08:01 68 20 99 Nasal Cannula 2.0 28 01/31/19 08:01 Nasal Cannula 2.0 28 01/31/19 08:01 99 Nasal Cannula 2.0 28 01/31/19 08:00 98.4 92 20 111/87 (95) 99 01/31/19 04:00 98.0 19 110/85 (93) 100 01/31/19 00:00 97.9 90 18 109/82 (91) 100 01/30/19 21:00 Nasal Cannula 2.0 Nasal Cannula 2.0 01/30/19 20:00 98.0 87 19 115/62 (79) 100 01/30/19 19:40 Nasal Cannula 2.0 28 01/30/19 19:40 100 Nasal Cannula 2.0 28 Height (Feet): 5 Height (Inches): 6.00 Weight (Pounds): 110 Objective GENERAL: Calm in bed, O2 NC, slight short of breath. Oriented x2, no acute distress. CARDIOVASCULAR: No murmurs. LUNGS: Poor air exchange. ABDOMEN: Bowel sounds distant. EXTREMITIES: No cyanosis, clubbing, or edema. NEUROLOGIC: The patient moves all extremities, slightly weak. Laboratory Tests Test 01/31/19 06:16 White Blood Count 8.2 K/UL (4.8-10.8) Red Blood Count 3.57 M/UL (4.20-5.40) L Hemoglobin 9.7 G/DL (12.0-16.0) L Hematocrit 30.9 % (37.0-47.0) L Mean Corpuscular Volume 87 FL (80-99) Mean Corpuscular Hemoglobin 27.3 PG (27.0-31.0) Mean Corpuscular Hemoglobin Concent 31.4 G/DL (32.0-36.0) L Red Cell Distribution Width 17.8 % (11.6-14.8) H Platelet Count 312 K/UL (150-450) Mean Platelet Volume 6.3 FL (6.5-10.1) L Neutrophils (%) (Auto) 74.7 % (45.0-75.0) Lymphocytes (%) (Auto) 14.3 % (20.0-45.0) L Monocytes (%) (Auto) 5.8 % (1.0-10.0) Eosinophils (%) (Auto) 3.9 % (0.0-3.0) H Basophils (%) (Auto) 1.3 % (0.0-2.0) Sodium Level 134 MMOL/L (136-145) L Potassium Level 4.3 MMOL/L (3.5-5.1) Chloride Level 98 MMOL/L (98-107) Carbon Dioxide Level 26 MMOL/L (21-32) Anion Gap 10 mmol/L (5-15) Blood Urea Nitrogen 15 mg/dL (7-18) Creatinine 0.7 MG/DL (0.55-1.30) Estimat Glomerular Filtration Rate mL/min (>60) Glucose Level 86 MG/DL (74-106) Calcium Level 10.3 MG/DL (8.5-10.1) H Current Medications Medications (Trade) Dose Ordered Sig/Charly Route PRN Reason Start Time Stop Time Status Last Admin Dose Admin Al Hydroxide/Mg Hydroxide (Mylanta) 30 ml Q6H PRN ORAL stomach upset 01/30/19 14:30 03/01/19 14:29 01/31/19 15:15 Albuterol/ Ipratropium (Albuterol/ Ipratropium) 3 ml Q4H PRN HHN Shortness of Breath 01/27/19 13:00 02/01/19 12:59 01/31/19 08:00 Aspirin (Ecotrin) 81 mg DAILY ORAL 01/22/19 09:00 02/18/19 08:59 01/31/19 08:37 Bisacodyl (Dulcolax) 10 mg BIDPRN PRN RECTAL Constipation 01/23/19 10:00 02/22/19 09:59 01/31/19 15:15 Dextrose (Dextrose 50%) 25 ml Q30M PRN IV Hypoglycemia 01/21/19 19:45 02/16/19 17:32 Dextrose (Dextrose 50%) 50 ml Q30M PRN IV Hypoglycemia 01/21/19 19:45 02/16/19 17:32 Docusate Sodium (Colace) 100 mg TWICE A DAY ORAL 01/23/19 10:00 02/22/19 09:59 01/31/19 08:37 Furosemide (Lasix) 40 mg DAILY ORAL 01/22/19 09:00 02/21/19 08:59 01/31/19 08:37 Heparin Sodium (Porcine) (Heparin 5000 units/ml) 5,000 units EVERY 12 HOURS SUBQ 01/21/19 21:00 02/16/19 20:59 01/31/19 08:44 Ibuprofen (Motrin) 600 mg Q6H PRN ORAL For Pain 01/31/19 11:30 03/02/19 11:29 01/31/19 11:57 Lidocaine (Xylocaine 1% MPF 5ml) 10 ml Q4H PRN HHN cough 01/21/19 19:13 02/18/19 19:12 Lorazepam (Ativan 2mg/ml 1ml) 0.5 mg Q4H PRN IV For Anxiety 01/27/19 13:00 02/01/19 12:59 01/31/19 04:55 Mineral Oil (Fleet's Mineral Oil Enema) 133 ml DAILYPRN PRN RECTAL Constipation 01/24/19 09:30 02/23/19 09:29 01/27/19 13:38 Nitroglycerin (Ntg) 0.4 mg Q5M X 3 DOSES PRN SL Prn Chest Pain 01/21/19 19:15 02/16/19 17:33 Ondansetron HCl (Zofran) 4 mg Q6H PRN IVP Nausea & Vomiting 01/21/19 19:13 02/16/19 19:12 01/29/19 22:13 Polyethylene Glycol (Miralax) 17 gm BEDTIME ORAL 01/24/19 21:00 02/23/19 20:59 01/28/19 21:16 Polyethylene Glycol (Miralax) 17 gm DAILYPRN PRN ORAL Constipation 01/31/19 11:30 03/02/19 11:29 01/31/19 11:57 Potassium Chloride (K-Dur) 40 meq DAILY ORAL 01/25/19 11:00 02/24/19 10:59 01/31/19 08:38 Promethazine HCl/ Codeine (Phenergan with Codeine) 5 ml Q6H PRN ORAL cough 01/21/19 19:14 02/16/19 19:13 01/31/19 08:37 Quetiapine Fumarate (SEROquel) 25 mg Q12HR ORAL 01/21/19 21:00 02/17/19 20:59 01/31/19 08:37 Sucralfate (Carafate) 1 gm TID ORAL 01/28/19 01:15 02/27/19 01:14 01/31/19 11:57 Temazepam (Restoril) 15 mg HSPRN PRN ORAL Insomnia 01/27/19 12:45 02/01/19 12:44 01/30/19 21:08 Theophylline (Jimmy-Dur) 100 mg EVERY 12 HOURS ORAL 01/21/19 21:00 02/16/19 20:59 01/31/19 08:37 Katt Ken M.D. Jan 31, 2019 16:27
--- NOTE | 2019-01-31 17:32 | General Progress Note ---
Assessment/Plan Problem List: (1) Protein-calorie malnutrition, severe ICD Codes: E43 - Unspecified severe protein-calorie malnutrition SNOMED: 765427745, 395520059, 532916633 (2) Arthritis ICD Codes: M19.90 - Unspecified osteoarthritis, unspecified site SNOMED: 0621919 (3) UTI (urinary tract infection) ICD Codes: N39.0 - Urinary tract infection, site not specified SNOMED: 89322241 (4) Anemia ICD Codes: D64.9 - Anemia, unspecified SNOMED: 323712774 (5) Pulmonary hypertension ICD Codes: I27.20 - Pulmonary hypertension, unspecified SNOMED: 77222078 (6) Pulmonary fibrosis ICD Codes: J84.10 - Pulmonary fibrosis, unspecified SNOMED: 25054439 (7) Hypertension ICD Codes: I10 - Essential (primary) hypertension SNOMED: 60186506 (8) Cervical radiculopathy ICD Codes: M54.12 - Radiculopathy, cervical region SNOMED: 42017823 (9) Hip osteoarthritis ICD Codes: M16.9 - Osteoarthritis of hip, unspecified SNOMED: 969325462 (10) COPD exacerbation ICD Codes: J44.1 - Chronic obstructive pulmonary disease with (acute) exacerbation SNOMED: 412043629, 197822919, 634796151 (11) CHF exacerbation ICD Codes: I50.9 - Heart failure, unspecified SNOMED: 42069721, 082133053, 671488792 Status: progressing Assessment/Plan anemia is stable chf copd no wheezing chronic pain pulm htn htn chronic pain reviwed chart and labs Subjective ROS Limited/Unobtainable: Yes Allergies: Coded Allergies: PENICILLINS (Verified Allergy, Unknown, SWELLING EVERYWHERE, EVEN EYES PER PATIENT, 11/24/11) Objective Last 24 Hour Vital Signs Date Time Temp Pulse Resp B/P (MAP) Pulse Ox O2 Delivery O2 Flow Rate FiO2 01/31/19 16:00 97.3 94 20 104/54 (71) 99 01/31/19 12:35 97.8 01/31/19 12:00 97.5 99 18 92/55 (67) 100 01/31/19 09:40 97.8 86 21 119/81 (94) 98 01/31/19 09:00 Nasal Cannula 2.0 Nasal Cannula 2.0 01/31/19 08:06 71 20 98 Nasal Cannula 2.0 28 01/31/19 08:01 68 20 99 Nasal Cannula 2.0 28 01/31/19 08:01 Nasal Cannula 2.0 28 01/31/19 08:01 99 Nasal Cannula 2.0 28 01/31/19 08:00 98.4 92 20 111/87 (95) 99 01/31/19 04:00 98.0 19 110/85 (93) 100 01/31/19 00:00 97.9 90 18 109/82 (91) 100 01/30/19 21:00 Nasal Cannula 2.0 Nasal Cannula 2.0 01/30/19 20:00 98.0 87 19 115/62 (79) 100 01/30/19 19:40 Nasal Cannula 2.0 28 01/30/19 19:40 100 Nasal Cannula 2.0 28 Intake and Output 01/30/19 01/31/19 19:00 07:00 Intake Total 2300 ml 660 ml Output Total 650 ml Balance 2300 ml 10 ml Intake Oral 2300 ml 660 ml Output Urine Total 650 ml # Voids 8 Laboratory Tests 01/31/19 06:16: White Blood Count 8.2, Red Blood Count 3.57L, Hemoglobin 9.7L, Hematocrit 30.9L , Mean Corpuscular Volume 87, Mean Corpuscular Hemoglobin 27.3, Mean Corpuscular Hemoglobin Concent 31.4L, Red Cell Distribution Width 17.8H, Platelet Count 312, Mean Platelet Volume 6.3L, Neutrophils (%) (Auto) 74.7, Lymphocytes (%) (Auto) 14.3L, Monocytes (%) (Auto) 5.8, Eosinophils (%) (Auto) 3.9H, Basophils (%) (Auto) 1.3, Sodium Level 134L, Potassium Level 4.3, Chloride Level 98, Carbon Dioxide Level 26, Anion Gap 10, Blood Urea Nitrogen 15 , Creatinine 0.7, Estimat Glomerular Filtration Rate , Glucose Level 86, Calcium Level 10.3H Height (Feet): 5 Height (Inches): 6.00 Weight (Pounds): 110 Neck: supple Cardiovascular: normal rate Respiratory/Chest: lungs clear Abdomen: soft Jennifer Chahal MD Jan 31, 2019 17:32
--- NOTE | 2019-01-31 17:54 | NUR ---
PATIENT STATED HAS GENERALIZED PAIN AWAITING ON NEXT DOSE OF MOTRIN PATIENT HAS PERIOD OF ANXIETY ATTACKS.. ENCOURAGE TO COUGH AND DEEP BREATH WHILE AWAKE SATS 100%.. VITAL SIGNS STABLE.. WILL CONTINUE TO MONITOR FOR ANY DISTRESS CALL LIGHT INR [facility]
--- NOTE | 2019-01-31 18:49 | NUR ---
NURSE NOTES:Patient received from MAR patient A/A/OX4 . Patient denies of pain at this time . no s/s of distress noted . R/FA g22 H/L Patent and intact. call light within reach . bed in low position at all times. will continue to monitor.
--- NOTE | 2019-01-31 18:49 | NUR ---
REPORT GIVEN JESSE KITCHEN CLERK UPDATED ON STATUS NOTED NO ACUTE DISTRESS
[2019-01-31] MEDS: Miralax 17gm pkt ORAL SCH (21:00)
[2019-02-01] VITALS: BP 130/80
[2019-02-01 04:00] VITALS: BP_SYST 136; BP_DIAS 81; BP_DIAS 87
[2019-02-01 07:17] LABS: HEMATOCRIT 29.3 % (37.0-47.0); HEMOGLOBIN 9.1 G/DL (12.0-16.0); MEAN CORPUSCULAR VOLUME 87 FL (80-99); NEUTROPHILS % (AUTO) 70.3 % (45.0-75.0); PLATELET COUNT 310 K/UL (150-450); RED BLOOD COUNT 3.37 M/UL (4.20-5.40); RED CELL DISTRIBUTION WIDTH 17.8 % (11.6-14.8); WHITE BLOOD COUNT 7.5 K/UL (4.8-10.8)
[2019-02-01 07:18] LABS: BASOPHILS % (AUTO) 2.9 % (0.0-2.0); EOSINOPHILS % (AUTO) 6.1 % (0.0-3.0); LYMPHOCYTES % (AUTO) 11.8 % (20.0-45.0); MONOCYTES % (AUTO) 8.9 % (1.0-10.0)
[2019-02-01 07:41] LABS: ANION GAP 9 mmol/L (5-15); BLOOD UREA NITROGEN 21 mg/dL (7-18); CALCIUM 9.8 MG/DL (8.5-10.1); CARBON DIOXIDE 27 MMOL/L (21-32); CHLORIDE 101 MMOL/L (98-107); CREATININE 0.9 MG/DL (0.55-1.30); POTASSIUM 4.4 MMOL/L (3.5-5.1); SODIUM 137 MMOL/L (136-145)
[2019-02-01 08:46] VITALS: BP 105/68
[2019-02-01] MEDS: Aspirin EC 81mg tab ORAL SCH (08:56)
[2019-02-01] MEDS: Docusate 100mg cap ORAL SCH ×2 (08:57→17:31)
[2019-02-01] MEDS: Furosemide 40mg tab ORAL SCH (08:57)
[2019-02-01] MEDS: Sucralfate 1gm tab ORAL SCH ×3 (08:57→17:31)
[2019-02-01] MEDS: Theophylline ER 100mg ORAL SCH ×2 (08:57→21:39)
[2019-02-01] MEDS: Heparin 5000 units/ml inj SUBQ SCH ×2 (08:58→21:42)
--- NOTE | 2019-02-01 09:12 | NUR ---
CASE MANAGEMENT:REVIEW 02/01/19 SI: COPD. CHF. UTI 97.6 95 18 105/68 100% ON 2L/NC IS: MOTRIN PO Q6HRS PRN CARAFATE PO TID K-DUR PO QD IV ATIVAN Q4HRS PRN ASA PO QD LASIX PO QD HEPARIN SQ Q12 SEROQUEL PO Q12 ULICES-DUR PO Q12 : MED/SURG 3 [place] PL[place]: PATIENT HAS HAD A DISCHARGE ORDER SINCE LAST WEEK WEDNESDAY [facility] HELPER [facility] IS AWARE THAT [facility] GAVE PATIENT'S BED AWAY [facility] HAS BEEN LOOKING TO SECURE A BED FOR THIS PATIENT SINCE WEDNESDAY (01/26/19) PATIENT WILL DISCHARGE SOON BED HAS BEEN SECURED BY [facility] DAILY MESSAGES LEFT FOR [employer] REGARDING BED ASSIGNMENT
--- NOTE | 2019-02-01 09:17 | NUR ---
DISCHARGE PLAN PATIENT LOST HER BED AT [facility] IS CURRENTLY TRYING TO FIND ANOTHER SNF BED FOR IT'S MEMBER SOON A BED HAS BEEN SECURED PATIENT WILL DISCHARGE Addendum: 02/01/19 at 0920 by LISETTE BERNABE LVN LVN ALSO CALLED [facility] T: [phone] AND SPOKE WITH GAIL REYNOLDS THEY DO NOT HAVE ANY FEMALE BEDS AVAILABLE TODAY
--- NOTE | 2019-02-01 09:53 | NUR ---
NURSE NOTES: During shift change patient on bed seating the side of the bed and eating breakfast, call light with in reach bed at low position, patient reported discomfort and pain on her buttocks RN assessed and noted some skin excoriation pressure relieved will apply skin barrier and foam dressing for prevention of skin breakdown.
--- NOTE | 2019-02-01 10:21 | Cardiac Electrophysiology PN ---
Assessment/Plan Assessment/Plan 1. Type 2 NSTEMI. No CP or SOB. EF normal . ECG incomplete LBBB, LVH. On aspirin and off Beta ehsan for asthma on steroids 2. CHF due to diastolic dysfunction with BNP >1500. On Lasix 40 mg po daily 3. Hypertension. On Lasix 4. COPD exacerbation and severe pulmonary HTN 5. Anemia. 6. UTI 8. Osteoarthritis. 9. Cervical radiculopathy. 10. Constipation, resolved DW RN Subjective Subjective Comfortable in NAD awaiting placement. Constipation resolved Objective Last 24 Hour Vital Signs Date Time Temp Pulse Resp B/P (MAP) Pulse Ox O2 Delivery O2 Flow Rate FiO2 02/01/19 09:52 97.6 02/01/19 08:46 97.6 95 18 105/68 (80) 100 02/01/19 07:13 Nasal Cannula 2.0 28 02/01/19 07:13 98 Nasal Cannula 2.0 28 02/01/19 04:00 98.3 20 136/87 (103) 99 02/01/19 04:00 98.2 20 136/81 (99) 99 02/01/19 00:00 97.6 91 20 130/80 (97) 98 01/31/19 21:06 78 18 Nasal Cannula 2.0 28 01/31/19 21:00 Nasal Cannula 2.0 Nasal Cannula 2.0 01/31/19 20:00 98.1 87 20 127/74 (91) 99 01/31/19 19:29 99 Nasal Cannula 2.0 28 01/31/19 19:29 Nasal Cannula 2.0 28 01/31/19 16:00 97.3 94 20 104/54 (71) 99 01/31/19 12:00 97.5 99 18 92/55 (67) 100 Intake and Output 01/31/19 02/01/19 18:59 06:59 Intake Total 950 ml 800 ml Output Total 875 ml 1700 ml Balance 75 ml -900 ml Intake Oral 950 ml 800 ml Output Urine Total 875 ml 1700 ml # Voids 3 # Bowel Movements 1 Laboratory Tests Test 02/01/19 06:04 White Blood Count 7.5 K/UL (4.8-10.8) Red Blood Count 3.37 M/UL (4.20-5.40) L Hemoglobin 9.1 G/DL (12.0-16.0) L Hematocrit 29.3 % (37.0-47.0) L Mean Corpuscular Volume 87 FL (80-99) Mean Corpuscular Hemoglobin 27.1 PG (27.0-31.0) Mean Corpuscular Hemoglobin Concent 31.1 G/DL (32.0-36.0) L Red Cell Distribution Width 17.8 % (11.6-14.8) H Platelet Count 310 K/UL (150-450) Mean Platelet Volume 6.1 FL (6.5-10.1) L Neutrophils (%) (Auto) 70.3 % (45.0-75.0) Lymphocytes (%) (Auto) 11.8 % (20.0-45.0) L Monocytes (%) (Auto) 8.9 % (1.0-10.0) Eosinophils (%) (Auto) 6.1 % (0.0-3.0) H Basophils (%) (Auto) 2.9 % (0.0-2.0) H Sodium Level 137 MMOL/L (136-145) Potassium Level 4.4 MMOL/L (3.5-5.1) Chloride Level 101 MMOL/L (98-107) Carbon Dioxide Level 27 MMOL/L (21-32) Anion Gap 9 mmol/L (5-15) Blood Urea Nitrogen 21 mg/dL (7-18) H Creatinine 0.9 MG/DL (0.55-1.30) Estimat Glomerular Filtration Rate mL/min (>60) Glucose Level 105 MG/DL (74-106) Calcium Level 9.8 MG/DL (8.5-10.1) Objective HEENT: No JVD Respiratory/Chest: Bilateral Rhonchi Cardiovascular/Chest: Normal peripheral pulses, normal rate, regular rhythm Abdomen: normal bowel sounds, non tender, soft, no organomegaly Extremities: No edema Renzo Burgess MD Feb 01, 2019 10:21
--- NOTE | 2019-02-01 11:00 | NUR ---
NURSE NOTES: Patient got cleaned and skin barrier applied for skin excoriation, small foam dressing applied on pressure points, patient also educated to report when she is having a bowel movement, pure wick in place.
--- NOTE | 2019-02-01 11:22 | GI Progress Note ---
Assessment/Plan Problems: (1) Anemia ICD Codes: D64.9 - Anemia, unspecified SNOMED: 036190136 (2) Protein-calorie malnutrition, severe ICD Codes: E43 - Unspecified severe protein-calorie malnutrition SNOMED: 405640886, 230396496, 753432012 (3) Constipation ICD Codes: K59.00 - Constipation, unspecified SNOMED: 98748410 Status: unchanged Status Narrative Discussed with Dr. Mustafa Assessment/Plan okay for DC per GI standpoint hep C viral load neg bowel regimen given neg stool ob hold in patient GI procedure fu labs The patient was seen and examined at bedside and all new and available data was reviewed in the patients chart. I agree with the above findings, impression and plan. (Patient seen earlier today. Signature stamp does not reflect patient encounter time.). - Adrian Mustafa MD Subjective Subjective abdominal pain improved reported BM Objective Last 24 Hour Vital Signs Date Time Temp Pulse Resp B/P (MAP) Pulse Ox O2 Delivery O2 Flow Rate FiO2 02/01/19 09:52 97.6 02/01/19 08:46 97.6 95 18 105/68 (80) 100 02/01/19 07:13 Nasal Cannula 2.0 28 02/01/19 07:13 98 Nasal Cannula 2.0 28 02/01/19 04:00 98.3 20 136/87 (103) 99 02/01/19 04:00 98.2 20 136/81 (99) 99 02/01/19 00:00 97.6 91 20 130/80 (97) 98 01/31/19 21:06 78 18 Nasal Cannula 2.0 28 01/31/19 21:00 Nasal Cannula 2.0 Nasal Cannula 2.0 01/31/19 20:00 98.1 87 20 127/74 (91) 99 01/31/19 19:29 99 Nasal Cannula 2.0 28 01/31/19 19:29 Nasal Cannula 2.0 28 01/31/19 16:00 97.3 94 20 104/54 (71) 99 01/31/19 12:00 97.5 99 18 92/55 (67) 100 Intake and Output 01/31/19 02/01/19 19:00 07:00 Intake Total 950 ml 800 ml Output Total 875 ml 1700 ml Balance 75 ml -900 ml Intake Oral 950 ml 800 ml Output Urine Total 875 ml 1700 ml # Voids 3 # Bowel Movements 1 Laboratory Tests Test 02/01/19 06:04 White Blood Count 7.5 K/UL (4.8-10.8) Red Blood Count 3.37 M/UL (4.20-5.40) L Hemoglobin 9.1 G/DL (12.0-16.0) L Hematocrit 29.3 % (37.0-47.0) L Mean Corpuscular Volume 87 FL (80-99) Mean Corpuscular Hemoglobin 27.1 PG (27.0-31.0) Mean Corpuscular Hemoglobin Concent 31.1 G/DL (32.0-36.0) L Red Cell Distribution Width 17.8 % (11.6-14.8) H Platelet Count 310 K/UL (150-450) Mean Platelet Volume 6.1 FL (6.5-10.1) L Neutrophils (%) (Auto) 70.3 % (45.0-75.0) Lymphocytes (%) (Auto) 11.8 % (20.0-45.0) L Monocytes (%) (Auto) 8.9 % (1.0-10.0) Eosinophils (%) (Auto) 6.1 % (0.0-3.0) H Basophils (%) (Auto) 2.9 % (0.0-2.0) H Sodium Level 137 MMOL/L (136-145) Potassium Level 4.4 MMOL/L (3.5-5.1) Chloride Level 101 MMOL/L (98-107) Carbon Dioxide Level 27 MMOL/L (21-32) Anion Gap 9 mmol/L (5-15) Blood Urea Nitrogen 21 mg/dL (7-18) H Creatinine 0.9 MG/DL (0.55-1.30) Estimat Glomerular Filtration Rate mL/min (>60) Glucose Level 105 MG/DL (74-106) Calcium Level 9.8 MG/DL (8.5-10.1) Height (Feet): 5 Height (Inches): 6.00 Weight (Pounds): 110 General Appearance: WD/WN, no apparent distress, alert, thin Cardiovascular: normal rate Respiratory/Chest: normal breath sounds, no respiratory distress Abdominal Exam: normal bowel sounds, non tender, soft Extremities: non-tender Loy Hamilton NP Feb 01, 2019 11:22
--- NOTE | 2019-02-01 11:53 | NUR ---
RD ASSESSMENT & RECOMMENDATIONS SEE CARE ACTIVITY FOR COMPLETE ASSESSMENT DAILY ESTIMATED NEEDS: Needs based on wasting, pulmonary/ 52kg 28-33 kcals/kg 3817-7380 total kcals 1.0-1.5 g protein/kg 52-78 g total protein 25-30 mL/kg 8175-7873 total fluid mLs NUTRITION DIAGNOSIS: Swallowing difficulty R/T dysphagia w/ h/o CVA + PNA as evidenced by GUIDANCE SERVICES COORDINATOR recommends pureed moist texture, NTL at this time-> now upgraded to Regular texture. CURRENT DIET:REGULAR PO DIET RECOMMENDATIONS: LOW NA/ texture per GUIDANCE SERVICES COORDINATOR ADDITIONAL RECOMMENDATIONS: * Txr pt to bed with bedscale, obtain calibrated bedscale wt * Weekly wt monitoring- pt reports recent wt loss * Ensure Enlive TID w/ meals * Monitor PO intake and tolerance closely -> improving at this time * on lasix, monitor lytes daily, replete as needed * Add snacks in b/w meals
[2019-02-01 12:00] VITALS: BP 100/60
--- NOTE | 2019-02-01 13:11 | NUR ---
*-* INSURANCE *-* UPDATED CLINICALS,REVIEWS HAVE BEEN FAXED TO: [facility] PLEASE FAX THE REVIEW /CLINICAL NCM: COLETTE P- [phone] X Claudia F- [phone]....
--- NOTE | 2019-02-01 13:27 | Pulmonology Progress Note ---
Assessment/Plan Problems: (1) Acute respiratory failure (2) COPD exacerbation (3) Pulmonary hypertension (4) Pulmonary fibrosis (5) Elevated troponin (6) Protein-calorie malnutrition, severe (7) Hypertension Assessment/Plan all reviewed still constipated feeling better sputum has Pseudomonas cxr better, 01/24 continue abx until sputum is available CT chest reviewed, pt has extensive fibrosis and chronic changes Echo reviewed, Grade one diastolic dysfunction trial of lidocaine inhalers and chronic Methadone to suppress dyspnea. ( it is helping her a lot) f/u cardiology recommendations Poor overall prognosis. Subjective ROS Limited/Unobtainable: No Constitutional: Reports: no symptoms HEENT: Repors: no symptoms Allergies: Coded Allergies: PENICILLINS (Verified Allergy, Unknown, SWELLING EVERYWHERE, EVEN EYES PER PATIENT, 11/24/11) Objective Last 24 Hour Vital Signs Date Time Temp Pulse Resp B/P (MAP) Pulse Ox O2 Delivery O2 Flow Rate FiO2 02/01/19 09:52 97.6 02/01/19 08:46 97.6 95 18 105/68 (80) 100 02/01/19 07:13 Nasal Cannula 2.0 28 02/01/19 07:13 98 Nasal Cannula 2.0 28 02/01/19 04:00 98.3 20 136/87 (103) 99 02/01/19 04:00 98.2 20 136/81 (99) 99 02/01/19 00:00 97.6 91 20 130/80 (97) 98 01/31/19 21:06 78 18 Nasal Cannula 2.0 28 01/31/19 21:00 Nasal Cannula 2.0 Nasal Cannula 2.0 01/31/19 20:00 98.1 87 20 127/74 (91) 99 01/31/19 19:29 99 Nasal Cannula 2.0 28 01/31/19 19:29 Nasal Cannula 2.0 28 01/31/19 16:00 97.3 94 20 104/54 (71) 99 Intake and Output 01/31/19 02/01/19 19:00 07:00 Intake Total 950 ml 800 ml Output Total 875 ml 1700 ml Balance 75 ml -900 ml Intake Oral 950 ml 800 ml Output Urine Total 875 ml 1700 ml # Voids 3 # Bowel Movements 1 Objective General Appearance: cachetic HEENT: normocephalic, atraumatic Respiratory/Chest: chest wall non-tender, normal breath sounds Cardiovascular: normal peripheral pulses, regular rhythm Abdomen: normal bowel sounds, soft, non tender Laboratory Tests 02/01/19 06:04: White Blood Count 7.5, Red Blood Count 3.37L, Hemoglobin 9.1L, Hematocrit 29.3L , Mean Corpuscular Volume 87, Mean Corpuscular Hemoglobin 27.1, Mean Corpuscular Hemoglobin Concent 31.1L, Red Cell Distribution Width 17.8H, Platelet Count 310, Mean Platelet Volume 6.1L, Neutrophils (%) (Auto) 70.3, Lymphocytes (%) (Auto) 11.8L, Monocytes (%) (Auto) 8.9, Eosinophils (%) (Auto) 6.1H, Basophils (%) (Auto) 2.9H, Sodium Level 137, Potassium Level 4.4, Chloride Level 101, Carbon Dioxide Level 27, Anion Gap 9, Blood Urea Nitrogen 21H, Creatinine 0.9, Estimat Glomerular Filtration Rate , Glucose Level 105, Calcium Level 9.8 Current Medications Medications (Trade) Dose Ordered Sig/Charly Route PRN Reason Start Time Stop Time Status Last Admin Dose Admin Al Hydroxide/Mg Hydroxide (Mylanta) 30 ml Q6H PRN ORAL stomach upset 01/30/19 14:30 03/01/19 14:29 02/01/19 10:35 Aspirin (Ecotrin) 81 mg DAILY ORAL 01/22/19 09:00 02/18/19 08:59 02/01/19 08:56 Bisacodyl (Dulcolax) 10 mg BIDPRN PRN RECTAL Constipation 01/23/19 10:00 02/22/19 09:59 01/31/19 15:15 Dextrose (Dextrose 50%) 25 ml Q30M PRN IV Hypoglycemia 01/21/19 19:45 02/16/19 17:32 Dextrose (Dextrose 50%) 50 ml Q30M PRN IV Hypoglycemia 01/21/19 19:45 02/16/19 17:32 Docusate Sodium (Colace) 100 mg TWICE A DAY ORAL 01/23/19 10:00 02/22/19 09:59 02/01/19 08:57 Furosemide (Lasix) 40 mg DAILY ORAL 01/22/19 09:00 02/21/19 08:59 02/01/19 08:57 Heparin Sodium (Porcine) (Heparin 5000 units/ml) 5,000 units EVERY 12 HOURS SUBQ 01/21/19 21:00 02/16/19 20:59 02/01/19 08:58 Ibuprofen (Motrin) 600 mg Q6H PRN ORAL For Pain 01/31/19 11:30 03/02/19 11:29 02/01/19 09:12 Lidocaine (Xylocaine 1% MPF 5ml) 10 ml Q4H PRN HHN cough 01/21/19 19:13 02/18/19 19:12 Mineral Oil (Fleet's Mineral Oil Enema) 133 ml DAILYPRN PRN RECTAL Constipation 01/24/19 09:30 02/23/19 09:29 01/27/19 13:38 Nitroglycerin (Ntg) 0.4 mg Q5M X 3 DOSES PRN SL Prn Chest Pain 01/21/19 19:15 02/16/19 17:33 Ondansetron HCl (Zofran) 4 mg Q6H PRN IVP Nausea & Vomiting 01/21/19 19:13 02/16/19 19:12 01/29/19 22:13 Polyethylene Glycol (Miralax) 17 gm BEDTIME ORAL 01/24/19 21:00 02/23/19 20:59 01/28/19 21:16 Polyethylene Glycol (Miralax) 17 gm DAILYPRN PRN ORAL Constipation 01/31/19 11:30 03/02/19 11:29 01/31/19 11:57 Potassium Chloride (K-Dur) 40 meq DAILY ORAL 01/25/19 11:00 02/24/19 10:59 02/01/19 08:57 Promethazine HCl/ Codeine (Phenergan with Codeine) 5 ml Q6H PRN ORAL cough 01/21/19 19:14 02/16/19 19:13 01/31/19 16:35 Quetiapine Fumarate (SEROquel) 25 mg Q12HR ORAL 01/21/19 21:00 02/17/19 20:59 02/01/19 08:57 Sucralfate (Carafate) 1 gm TID ORAL 01/28/19 01:15 02/27/19 01:14 02/01/19 08:57 Theophylline (Jimmy-Dur) 100 mg EVERY 12 HOURS ORAL 01/21/19 21:00 02/16/19 20:59 02/01/19 08:57 Jersey Chadwick MD Feb 01, 2019 13:26
--- NOTE | 2019-02-01 15:03 | Infectious Diseases Prog Note ---
Assessment/Plan Assessment/Plan Assessment: Probable Aspiration PNA vs pneumonitis, sp Rx -sp cx PsA (R Levo/Cipro; otherwise S including Aztreonam) Pneumomediastinum-suspected to rupture R side paratracheal bleb -01/25 CXR: Suspected interstitial disease. This may be chronic due to fibrosis. Pneumomediastinum. -01/20 CXR: Increasing bilateral parenchymal opacities, likely reflecting increasing edema or infiltrate superimposed on pre-existing chronic opacities. Central mediastinal lucency, likely reflects pneumomediastinum described on recent chest CT -CTA chest: Negative for acute pulmonary embolus or other acute thoracic vascular pathology. Pneumomediastinum. Suspect due to a ruptured right-sided medial bleb. Evidence of extensive chronic pulmonary parenchymal interstitial disease, with areas of honeycombing and bronchiectasis. No definite acute pulmonary parenchymal process. Ectatic main and left main pulmonary arteries, suggestive of pulmonary arterial hypertension. Bullae and subpleural blebs, may be related to the interstitial fibrotic process or could represent COPD changes -CXR: Cardiomegaly. Bilateral extensive interstitial and airspace opacities, slightly increased from but similar in distribution to prior study of 2017. Suspect component of chronic interstitial fibrosis with superimposed acute edema or infiltrates -influenza sc neg Afebrile No leukocytosis AST elevation; improving -HIV ab sc neg -Hep C+, VL neg; cleared infection DM HTN ND CAD CHF cervical radiculopathy CVA asthma COPD /Emphysema sp Bilateral hip replacement long term resident Plan: -Continue to monitor off abx -01/25 SP Aztreonam #7 -01/24 SP Azithromycin #5 -01/17 SP Ceftriaxone x1 -f/u cx -monitor CBC/CMP, temperatures -aspiration precautions Subjective Allergies: Coded Allergies: PENICILLINS (Verified Allergy, Unknown, SWELLING EVERYWHERE, EVEN EYES PER PATIENT, 11/24/11) Subjective afebrile at 2l NC no leukocytosis off abx Objective Vital Signs Last 24 Hour Vital Signs Date Time Temp Pulse Resp B/P (MAP) Pulse Ox O2 Delivery O2 Flow Rate FiO2 02/01/19 12:00 98.2 97 18 100/60 (73) 99 02/01/19 09:52 97.6 02/01/19 09:00 Nasal Cannula 2.0 Nasal Cannula 2.0 02/01/19 08:46 97.6 95 18 105/68 (80) 100 02/01/19 07:13 Nasal Cannula 2.0 28 02/01/19 07:13 98 Nasal Cannula 2.0 28 02/01/19 04:00 98.3 20 136/87 (103) 99 02/01/19 04:00 98.2 20 136/81 (99) 99 02/01/19 00:00 97.6 91 20 130/80 (97) 98 01/31/19 21:06 78 18 Nasal Cannula 2.0 28 01/31/19 21:00 Nasal Cannula 2.0 Nasal Cannula 2.0 01/31/19 20:00 98.1 87 20 127/74 (91) 99 01/31/19 19:29 99 Nasal Cannula 2.0 28 01/31/19 19:29 Nasal Cannula 2.0 28 01/31/19 16:00 97.3 94 20 104/54 (71) 99 Height (Feet): 5 Height (Inches): 6.00 Weight (Pounds): 110 Objective GENERAL: Calm in bed, O2 NC, slight short of breath. Oriented x2, no acute distress. CARDIOVASCULAR: No murmurs. LUNGS: Poor air exchange. ABDOMEN: Bowel sounds distant. EXTREMITIES: No cyanosis, clubbing, or edema. NEUROLOGIC: The patient moves all extremities, slightly weak. Laboratory Tests Test 02/01/19 06:04 White Blood Count 7.5 K/UL (4.8-10.8) Red Blood Count 3.37 M/UL (4.20-5.40) L Hemoglobin 9.1 G/DL (12.0-16.0) L Hematocrit 29.3 % (37.0-47.0) L Mean Corpuscular Volume 87 FL (80-99) Mean Corpuscular Hemoglobin 27.1 PG (27.0-31.0) Mean Corpuscular Hemoglobin Concent 31.1 G/DL (32.0-36.0) L Red Cell Distribution Width 17.8 % (11.6-14.8) H Platelet Count 310 K/UL (150-450) Mean Platelet Volume 6.1 FL (6.5-10.1) L Neutrophils (%) (Auto) 70.3 % (45.0-75.0) Lymphocytes (%) (Auto) 11.8 % (20.0-45.0) L Monocytes (%) (Auto) 8.9 % (1.0-10.0) Eosinophils (%) (Auto) 6.1 % (0.0-3.0) H Basophils (%) (Auto) 2.9 % (0.0-2.0) H Sodium Level 137 MMOL/L (136-145) Potassium Level 4.4 MMOL/L (3.5-5.1) Chloride Level 101 MMOL/L (98-107) Carbon Dioxide Level 27 MMOL/L (21-32) Anion Gap 9 mmol/L (5-15) Blood Urea Nitrogen 21 mg/dL (7-18) H Creatinine 0.9 MG/DL (0.55-1.30) Estimat Glomerular Filtration Rate mL/min (>60) Glucose Level 105 MG/DL (74-106) Calcium Level 9.8 MG/DL (8.5-10.1) Current Medications Medications (Trade) Dose Ordered Sig/Charly Route PRN Reason Start Time Stop Time Status Last Admin Dose Admin Al Hydroxide/Mg Hydroxide (Mylanta) 30 ml Q6H PRN ORAL stomach upset 01/30/19 14:30 03/01/19 14:29 02/01/19 10:35 Albuterol/ Ipratropium (Albuterol/ Ipratropium) 3 ml Q4H PRN HHN Shortness of Breath 02/01/19 14:45 02/06/19 14:44 Aspirin (Ecotrin) 81 mg DAILY ORAL 01/22/19 09:00 02/18/19 08:59 02/01/19 08:56 Bisacodyl (Dulcolax) 10 mg BIDPRN PRN RECTAL Constipation 01/23/19 10:00 02/22/19 09:59 01/31/19 15:15 Dextrose (Dextrose 50%) 25 ml Q30M PRN IV Hypoglycemia 01/21/19 19:45 02/16/19 17:32 Dextrose (Dextrose 50%) 50 ml Q30M PRN IV Hypoglycemia 01/21/19 19:45 02/16/19 17:32 Docusate Sodium (Colace) 100 mg TWICE A DAY ORAL 01/23/19 10:00 02/22/19 09:59 02/01/19 08:57 Furosemide (Lasix) 40 mg DAILY ORAL 01/22/19 09:00 02/21/19 08:59 02/01/19 08:57 Heparin Sodium (Porcine) (Heparin 5000 units/ml) 5,000 units EVERY 12 HOURS SUBQ 01/21/19 21:00 02/16/19 20:59 02/01/19 08:58 Ibuprofen (Motrin) 600 mg Q6H PRN ORAL For Pain 01/31/19 11:30 03/02/19 11:29 02/01/19 09:12 Lidocaine (Xylocaine 1% MPF 5ml) 10 ml Q4H PRN HHN cough 01/21/19 19:13 02/18/19 19:12 Mineral Oil (Fleet's Mineral Oil Enema) 133 ml DAILYPRN PRN RECTAL Constipation 01/24/19 09:30 02/23/19 09:29 01/27/19 13:38 Nitroglycerin (Ntg) 0.4 mg Q5M X 3 DOSES PRN SL Prn Chest Pain 01/21/19 19:15 02/16/19 17:33 Ondansetron HCl (Zofran) 4 mg Q6H PRN IVP Nausea & Vomiting 01/21/19 19:13 02/16/19 19:12 01/29/19 22:13 Polyethylene Glycol (Miralax) 17 gm BEDTIME ORAL 01/24/19 21:00 02/23/19 20:59 01/28/19 21:16 Polyethylene Glycol (Miralax) 17 gm DAILYPRN PRN ORAL Constipation 01/31/19 11:30 03/02/19 11:29 01/31/19 11:57 Potassium Chloride (K-Dur) 40 meq DAILY ORAL 01/25/19 11:00 02/24/19 10:59 02/01/19 08:57 Promethazine HCl/ Codeine (Phenergan with Codeine) 5 ml Q6H PRN ORAL cough 01/21/19 19:14 02/16/19 19:13 01/31/19 16:35 Quetiapine Fumarate (SEROquel) 25 mg Q12HR ORAL 01/21/19 21:00 02/17/19 20:59 02/01/19 08:57 Sucralfate (Carafate) 1 gm TID ORAL 01/28/19 01:15 02/27/19 01:14 02/01/19 08:57 Theophylline (Jimmy-Dur) 100 mg EVERY 12 HOURS ORAL 01/21/19 21:00 02/16/19 20:59 02/01/19 08:57 Katt Ken M.D. Feb 01, 2019 15:03
[2019-02-01 16:00] VITALS: BP 119/71
[2019-02-01] MEDS: Albuterol/Ipratropium 3ml neb HHN PRN (16:21)
--- NOTE | 2019-02-01 19:34 | NUR ---
HAND-OFF: Report given to TEVIN Perez patient awake alert stable condition with out no distress, endorsed for skin care protocol to assess patinet more to prevent skin breakdown.
[2019-02-01 20:00] VITALS: BP 120/65
[2019-02-01] MEDS: Miralax 17gm pkt ORAL SCH (21:00)
--- NOTE | 2019-02-01 21:54 | General Progress Note ---
Assessment/Plan Problem List: (1) Protein-calorie malnutrition, severe ICD Codes: E43 - Unspecified severe protein-calorie malnutrition SNOMED: 625974139, 715954706, 627957626 (2) Arthritis ICD Codes: M19.90 - Unspecified osteoarthritis, unspecified site SNOMED: 9321661 (3) UTI (urinary tract infection) ICD Codes: N39.0 - Urinary tract infection, site not specified SNOMED: 86204138 (4) Anemia ICD Codes: D64.9 - Anemia, unspecified SNOMED: 078857414 (5) Pulmonary hypertension ICD Codes: I27.20 - Pulmonary hypertension, unspecified SNOMED: 41577824 (6) Pulmonary fibrosis ICD Codes: J84.10 - Pulmonary fibrosis, unspecified SNOMED: 80990154 (7) Hypertension ICD Codes: I10 - Essential (primary) hypertension SNOMED: 75719989 (8) Cervical radiculopathy ICD Codes: M54.12 - Radiculopathy, cervical region SNOMED: 55770280 (9) Hip osteoarthritis ICD Codes: M16.9 - Osteoarthritis of hip, unspecified SNOMED: 728073364 (10) COPD exacerbation ICD Codes: J44.1 - Chronic obstructive pulmonary disease with (acute) exacerbation SNOMED: 241930318, 020128167, 691988992 (11) CHF exacerbation ICD Codes: I50.9 - Heart failure, unspecified SNOMED: 56503240, 470288372, 922604111 Status: progressing Assessment/Plan anemia is stable chf pulmonary fibrosis dyspnea afebrile vitals stable chronic pain pulm htn htn chronic pain reviwed chart and labs Subjective ROS Limited/Unobtainable: Yes - l Allergies: Coded Allergies: PENICILLINS (Verified Allergy, Unknown, SWELLING EVERYWHERE, EVEN EYES PER PATIENT, 11/24/11) Objective Last 24 Hour Vital Signs Date Time Temp Pulse Resp B/P (MAP) Pulse Ox O2 Delivery O2 Flow Rate FiO2 02/01/19 18:11 98.2 02/01/19 16:21 70 18 96 Nasal Cannula 2.0 28 02/01/19 16:00 98.0 92 18 119/71 (87) 99 02/01/19 12:00 98.2 97 18 100/60 (73) 99 02/01/19 09:00 Nasal Cannula 2.0 Nasal Cannula 2.0 02/01/19 08:46 97.6 95 18 105/68 (80) 100 02/01/19 07:13 Nasal Cannula 2.0 28 02/01/19 07:13 98 Nasal Cannula 2.0 28 02/01/19 04:00 98.3 20 136/87 (103) 99 02/01/19 04:00 98.2 20 136/81 (99) 99 02/01/19 00:00 97.6 91 20 130/80 (97) 98 Intake and Output 01/31/19 02/01/19 19:00 07:00 Intake Total 950 ml 800 ml Output Total 875 ml 1700 ml Balance 75 ml -900 ml Intake Oral 950 ml 800 ml Output Urine Total 875 ml 1700 ml # Voids 3 # Bowel Movements 1 Laboratory Tests 02/01/19 06:04: White Blood Count 7.5, Red Blood Count 3.37L, Hemoglobin 9.1L, Hematocrit 29.3L , Mean Corpuscular Volume 87, Mean Corpuscular Hemoglobin 27.1, Mean Corpuscular Hemoglobin Concent 31.1L, Red Cell Distribution Width 17.8H, Platelet Count 310, Mean Platelet Volume 6.1L, Neutrophils (%) (Auto) 70.3, Lymphocytes (%) (Auto) 11.8L, Monocytes (%) (Auto) 8.9, Eosinophils (%) (Auto) 6.1H, Basophils (%) (Auto) 2.9H, Sodium Level 137, Potassium Level 4.4, Chloride Level 101, Carbon Dioxide Level 27, Anion Gap 9, Blood Urea Nitrogen 21H, Creatinine 0.9, Estimat Glomerular Filtration Rate , Glucose Level 105, Calcium Level 9.8 Height (Feet): 5 Height (Inches): 6.00 Weight (Pounds): 110 EENT: PERRL/EOMI Cardiovascular: normal rate Respiratory/Chest: lungs clear Jennifer Chahal MD Feb 01, 2019 21:54
[2019-02-02] VITALS (7 sets, daily range): BP systolic 103–132; BP diastolic 61–77
[2019-02-02 07:06] LABS: ANION GAP 9 mmol/L (5-15); BLOOD UREA NITROGEN 20 mg/dL (7-18); CARBON DIOXIDE 28 MMOL/L (21-32); CHLORIDE 101 MMOL/L (98-107); CREATININE 0.8 MG/DL (0.55-1.30); POTASSIUM 4.4 MMOL/L (3.5-5.1); SODIUM 138 MMOL/L (136-145)
[2019-02-02 07:29] LABS: BASOPHILS % (AUTO) 1.9 % (0.0-2.0); EOSINOPHILS % (AUTO) 6.2 % (0.0-3.0); HEMATOCRIT 30.1 % (37.0-47.0); HEMOGLOBIN 9.3 G/DL (12.0-16.0); MEAN CORPUSCULAR VOLUME 87 FL (80-99); MONOCYTES % (AUTO) 6.8 % (1.0-10.0); NEUTROPHILS % (AUTO) 71.1 % (45.0-75.0); PLATELET COUNT 286 K/UL (150-450); RED BLOOD COUNT 3.45 M/UL (4.20-5.40); RED CELL DISTRIBUTION WIDTH 17.5 % (11.6-14.8); WHITE BLOOD COUNT 6.9 K/UL (4.8-10.8)
--- NOTE | 2019-02-02 07:30 | NUR ---
HAND-OFF: Report given to Perla Rincon
--- NOTE | 2019-02-02 07:46 | NUR ---
NURSE NOTES: Patient is awake and alert and oriented,02 at 2L N/C,respirations unlabored,no complaints of pain at this time.Call light within reach.Breakfast at bedside.
[2019-02-02] MEDS: Aspirin EC 81mg tab ORAL SCH (08:49)
[2019-02-02] MEDS: Docusate 100mg cap ORAL SCH ×2 (08:49→17:59)
[2019-02-02] MEDS: Sucralfate 1gm tab ORAL SCH ×4 (08:49→18:19)
[2019-02-02] MEDS: Furosemide 40mg tab ORAL SCH (08:50)
[2019-02-02] MEDS: Theophylline ER 100mg ORAL SCH ×2 (08:50→21:14)
[2019-02-02] MEDS: Heparin 5000 units/ml inj SUBQ SCH ×2 (08:55→21:17)
[2019-02-02] MEDS: Albuterol/Ipratropium 3ml neb HHN PRN (09:49)
--- NOTE | 2019-02-02 09:50 | General Progress Note ---
Assessment/Plan Problem List: (1) Protein-calorie malnutrition, severe ICD Codes: E43 - Unspecified severe protein-calorie malnutrition SNOMED: 706593882, 812130976, 594120024 (2) Arthritis ICD Codes: M19.90 - Unspecified osteoarthritis, unspecified site SNOMED: 3851502 (3) UTI (urinary tract infection) ICD Codes: N39.0 - Urinary tract infection, site not specified SNOMED: 75829407 (4) Anemia ICD Codes: D64.9 - Anemia, unspecified SNOMED: 845590176 (5) Pulmonary hypertension ICD Codes: I27.20 - Pulmonary hypertension, unspecified SNOMED: 51361877 (6) Pulmonary fibrosis ICD Codes: J84.10 - Pulmonary fibrosis, unspecified SNOMED: 53456403 (7) Hypertension ICD Codes: I10 - Essential (primary) hypertension SNOMED: 81029369 (8) Cervical radiculopathy ICD Codes: M54.12 - Radiculopathy, cervical region SNOMED: 83653246 (9) Hip osteoarthritis ICD Codes: M16.9 - Osteoarthritis of hip, unspecified SNOMED: 531479002 (10) COPD exacerbation ICD Codes: J44.1 - Chronic obstructive pulmonary disease with (acute) exacerbation SNOMED: 352491925, 644221781, 150089564 (11) CHF exacerbation ICD Codes: I50.9 - Heart failure, unspecified SNOMED: 23543680, 699096436, 131143598 Status: progressing Assessment/Plan anemia chf pulmonary fibrosis dyspnea afebrile chronic pain pulm htn htn vitals stable not hypoxic reviwed chart and labs Subjective ROS Limited/Unobtainable: Yes Allergies: Coded Allergies: PENICILLINS (Verified Allergy, Unknown, SWELLING EVERYWHERE, EVEN EYES PER PATIENT, 11/24/11) Objective Last 24 Hour Vital Signs Date Time Temp Pulse Resp B/P (MAP) Pulse Ox O2 Delivery O2 Flow Rate FiO2 02/02/19 09:34 Nasal Cannula 2.0 Nasal Cannula 2.0 02/02/19 08:12 98.4 87 20 127/61 (83) 100 02/02/19 07:45 100 2.0 28 02/02/19 07:45 86 19 Nasal Cannula 2.0 28 02/02/19 07:45 Nasal Cannula 2.0 28 02/02/19 04:00 98.0 84 20 112/77 (89) 95 02/02/19 02:33 98.2 02/02/19 00:00 98.2 98 18 131/72 (91) 95 02/01/19 22:38 Nasal Cannula 2.0 02/01/19 22:37 97 Nasal Cannula 2.0 28 02/01/19 21:00 Nasal Cannula 2.0 Nasal Cannula 2.0 02/01/19 20:00 97.7 95 20 120/65 (83) 98 02/01/19 19:00 97 Nasal Cannula 2.0 28 02/01/19 19:00 Nasal Cannula 2.0 28 02/01/19 16:21 70 18 96 Nasal Cannula 2.0 28 02/01/19 16:00 98.0 92 18 119/71 (87) 99 02/01/19 12:00 98.2 97 18 100/60 (73) 99 Intake and Output 02/01/19 02/02/19 18:59 06:59 Intake Total 500 ml 900 ml Output Total 950 ml Balance 500 ml -50 ml Intake Oral 500 ml 900 ml Output Urine Total 950 ml # Voids 2 4 # Bowel Movements 2 Laboratory Tests 02/02/19 05:45: White Blood Count 6.9, Red Blood Count 3.45L, Hemoglobin 9.3L, Hematocrit 30.1L , Mean Corpuscular Volume 87, Mean Corpuscular Hemoglobin 26.9L, Mean Corpuscular Hemoglobin Concent 30.8L, Red Cell Distribution Width 17.5H, Platelet Count 286, Mean Platelet Volume 5.7L, Neutrophils (%) (Auto) 71.1, Lymphocytes (%) (Auto) 14.0L, Monocytes (%) (Auto) 6.8, Eosinophils (%) (Auto) 6.2H, Basophils (%) (Auto) 1.9, Sodium Level 138, Potassium Level 4.4, Chloride Level 101, Carbon Dioxide Level 28, Anion Gap 9, Blood Urea Nitrogen 20H, Creatinine 0.8, Estimat Glomerular Filtration Rate , Glucose Level 95, Calcium Level 10.0 Height (Feet): 5 Height (Inches): 6.00 Weight (Pounds): 110 Neck: supple Cardiovascular: normal rate Abdomen: soft Jennifer Chahal MD Feb 02, 2019 09:50
--- NOTE | 2019-02-02 10:58 | Cardiac Electrophysiology PN ---
Assessment/Plan Assessment/Plan 1. Type 2 NSTEMI. No CP or SOB. EF normal . ECG incomplete LBBB, LVH. On aspirin and off Beta ehsan for asthma on steroids 2. CHF due to diastolic dysfunction with BNP >1500. On Lasix 40 mg po daily 3. Hypertension. On Lasix 4. COPD exacerbation and severe pulmonary HTN 5. Anemia. 6. UTI 8. Osteoarthritis. 9. Cervical radiculopathy. 10. Constipation, resolved 11. Placement issue DW RN Subjective Subjective Comfortable in NAD awaiting placement.No CP or SOB Objective Last 24 Hour Vital Signs Date Time Temp Pulse Resp B/P (MAP) Pulse Ox O2 Delivery O2 Flow Rate FiO2 02/02/19 09:49 84 24 100 Nasal Cannula 2.0 02/02/19 09:34 Nasal Cannula 2.0 Nasal Cannula 2.0 02/02/19 08:12 98.4 87 20 127/61 (83) 100 02/02/19 07:45 100 2.0 28 02/02/19 07:45 86 19 Nasal Cannula 2.0 02/02/19 07:45 Nasal Cannula 2.0 28 02/02/19 04:00 98.0 84 20 112/77 (89) 95 02/02/19 02:33 98.2 02/02/19 00:00 98.2 98 18 131/72 (91) 95 02/01/19 22:38 Nasal Cannula 2.0 28 02/01/19 22:37 97 Nasal Cannula 2.0 28 02/01/19 21:00 Nasal Cannula 2.0 Nasal Cannula 2.0 02/01/19 20:00 97.7 95 20 120/65 (83) 98 02/01/19 19:00 97 Nasal Cannula 2.0 28 02/01/19 19:00 Nasal Cannula 2.0 28 02/01/19 16:21 70 18 96 Nasal Cannula 2.0 28 02/01/19 16:00 98.0 92 18 119/71 (87) 99 02/01/19 12:00 98.2 97 18 100/60 (73) 99 Intake and Output 02/01/19 02/02/19 18:59 06:59 Intake Total 500 ml 900 ml Output Total 950 ml Balance 500 ml -50 ml Intake Oral 500 ml 900 ml Output Urine Total 950 ml # Voids 2 4 # Bowel Movements 2 Laboratory Tests Test 02/02/19 05:45 White Blood Count 6.9 K/UL (4.8-10.8) Red Blood Count 3.45 M/UL (4.20-5.40) L Hemoglobin 9.3 G/DL (12.0-16.0) L Hematocrit 30.1 % (37.0-47.0) L Mean Corpuscular Volume 87 FL (80-99) Mean Corpuscular Hemoglobin 26.9 PG (27.0-31.0) L Mean Corpuscular Hemoglobin Concent 30.8 G/DL (32.0-36.0) L Red Cell Distribution Width 17.5 % (11.6-14.8) H Platelet Count 286 K/UL (150-450) Mean Platelet Volume 5.7 FL (6.5-10.1) L Neutrophils (%) (Auto) 71.1 % (45.0-75.0) Lymphocytes (%) (Auto) 14.0 % (20.0-45.0) L Monocytes (%) (Auto) 6.8 % (1.0-10.0) Eosinophils (%) (Auto) 6.2 % (0.0-3.0) H Basophils (%) (Auto) 1.9 % (0.0-2.0) Sodium Level 138 MMOL/L (136-145) Potassium Level 4.4 MMOL/L (3.5-5.1) Chloride Level 101 MMOL/L (98-107) Carbon Dioxide Level 28 MMOL/L (21-32) Anion Gap 9 mmol/L (5-15) Blood Urea Nitrogen 20 mg/dL (7-18) H Creatinine 0.8 MG/DL (0.55-1.30) Estimat Glomerular Filtration Rate mL/min (>60) Glucose Level 95 MG/DL (74-106) Calcium Level 10.0 MG/DL (8.5-10.1) Objective HEENT: No JVD Respiratory/Chest: Clear Cardiovascular/Chest: Normal peripheral pulses, normal rate, regular rhythm Abdomen: normal bowel sounds, non tender, Extremities: No edema Renzo Burgess MD Feb 02, 2019 10:58
--- NOTE | 2019-02-02 11:02 | Infectious Diseases Prog Note ---
Assessment/Plan Assessment/Plan Assessment: Probable Aspiration PNA vs pneumonitis, sp Rx -sp cx PsA (R Levo/Cipro; otherwise S including Aztreonam) Pneumomediastinum-suspected to rupture R side paratracheal bleb -01/25 CXR: Suspected interstitial disease. This may be chronic due to fibrosis. Pneumomediastinum. -01/20 CXR: Increasing bilateral parenchymal opacities, likely reflecting increasing edema or infiltrate superimposed on pre-existing chronic opacities. Central mediastinal lucency, likely reflects pneumomediastinum described on recent chest CT -CTA chest: Negative for acute pulmonary embolus or other acute thoracic vascular pathology. Pneumomediastinum. Suspect due to a ruptured right-sided medial bleb. Evidence of extensive chronic pulmonary parenchymal interstitial disease, with areas of honeycombing and bronchiectasis. No definite acute pulmonary parenchymal process. Ectatic main and left main pulmonary arteries, suggestive of pulmonary arterial hypertension. Bullae and subpleural blebs, may be related to the interstitial fibrotic process or could represent COPD changes -CXR: Cardiomegaly. Bilateral extensive interstitial and airspace opacities, slightly increased from but similar in distribution to prior study of 2017. Suspect component of chronic interstitial fibrosis with superimposed acute edema or infiltrates -influenza sc neg Afebrile No leukocytosis AST elevation; improving -HIV ab sc neg -Hep C+, VL neg; cleared infection DM HTN MD CAD CHF cervical radiculopathy CVA asthma COPD /Emphysema sp Bilateral hip replacement fdc resident Plan: -Continue to monitor off abx -01/25 SP Aztreonam #7 -01/24 SP Azithromycin #5 -01/17 SP Ceftriaxone x1 -f/u cx -monitor CBC/CMP, temperatures -aspiration precautions Subjective Allergies: Coded Allergies: PENICILLINS (Verified Allergy, Unknown, SWELLING EVERYWHERE, EVEN EYES PER PATIENT, 11/24/11) Subjective afebrile at 2l NC no leukocytosis off abx Objective Vital Signs Last 24 Hour Vital Signs Date Time Temp Pulse Resp B/P (MAP) Pulse Ox O2 Delivery O2 Flow Rate FiO2 02/02/19 09:49 84 24 100 Nasal Cannula 2.0 28 02/02/19 09:34 Nasal Cannula 2.0 Nasal Cannula 2.0 02/02/19 08:12 98.4 87 20 127/61 (83) 100 02/02/19 07:45 100 2.0 28 02/02/19 07:45 86 19 Nasal Cannula 2.0 28 02/02/19 07:45 Nasal Cannula 2.0 02/02/19 04:00 98.0 84 20 112/77 (89) 95 02/02/19 02:33 98.2 02/02/19 00:00 98.2 98 18 131/72 (91) 95 02/01/19 22:38 Nasal Cannula 2.0 02/01/19 22:37 97 Nasal Cannula 2.0 28 02/01/19 21:00 Nasal Cannula 2.0 Nasal Cannula 2.0 02/01/19 20:00 97.7 95 20 120/65 (83) 98 02/01/19 19:00 97 Nasal Cannula 2.0 02/01/19 19:00 Nasal Cannula 2.0 28 02/01/19 16:21 70 18 96 Nasal Cannula 2.0 28 02/01/19 16:00 98.0 92 18 119/71 (87) 99 02/01/19 12:00 98.2 97 18 100/60 (73) 99 Height (Feet): 5 Height (Inches): 6.00 Weight (Pounds): 110 Objective GENERAL: Calm in bed, O2 NC, slight short of breath. Oriented x2, no acute distress. CARDIOVASCULAR: No murmurs. LUNGS: Poor air exchange. ABDOMEN: Bowel sounds distant. EXTREMITIES: No cyanosis, clubbing, or edema. NEUROLOGIC: The patient moves all extremities, slightly weak. Laboratory Tests Test 02/02/19 05:45 White Blood Count 6.9 K/UL (4.8-10.8) Red Blood Count 3.45 M/UL (4.20-5.40) L Hemoglobin 9.3 G/DL (12.0-16.0) L Hematocrit 30.1 % (37.0-47.0) L Mean Corpuscular Volume 87 FL (80-99) Mean Corpuscular Hemoglobin 26.9 PG (27.0-31.0) L Mean Corpuscular Hemoglobin Concent 30.8 G/DL (32.0-36.0) L Red Cell Distribution Width 17.5 % (11.6-14.8) H Platelet Count 286 K/UL (150-450) Mean Platelet Volume 5.7 FL (6.5-10.1) L Neutrophils (%) (Auto) 71.1 % (45.0-75.0) Lymphocytes (%) (Auto) 14.0 % (20.0-45.0) L Monocytes (%) (Auto) 6.8 % (1.0-10.0) Eosinophils (%) (Auto) 6.2 % (0.0-3.0) H Basophils (%) (Auto) 1.9 % (0.0-2.0) Sodium Level 138 MMOL/L (136-145) Potassium Level 4.4 MMOL/L (3.5-5.1) Chloride Level 101 MMOL/L (98-107) Carbon Dioxide Level 28 MMOL/L (21-32) Anion Gap 9 mmol/L (5-15) Blood Urea Nitrogen 20 mg/dL (7-18) H Creatinine 0.8 MG/DL (0.55-1.30) Estimat Glomerular Filtration Rate mL/min (>60) Glucose Level 95 MG/DL (74-106) Calcium Level 10.0 MG/DL (8.5-10.1) Current Medications Medications (Trade) Dose Ordered Sig/Charly Route PRN Reason Start Time Stop Time Status Last Admin Dose Admin Al Hydroxide/Mg Hydroxide (Mylanta) 30 ml Q6H PRN ORAL stomach upset 01/30/19 14:30 03/01/19 14:29 02/01/19 21:41 Albuterol/ Ipratropium (Albuterol/ Ipratropium) 3 ml Q4H PRN HHN Shortness of Breath 02/01/19 14:45 02/06/19 14:44 02/02/19 09:49 Aspirin (Ecotrin) 81 mg DAILY ORAL 01/22/19 09:00 02/18/19 08:59 02/02/19 08:49 Bisacodyl (Dulcolax) 10 mg BIDPRN PRN RECTAL Constipation 01/23/19 10:00 02/22/19 09:59 01/31/19 15:15 Dextrose (Dextrose 50%) 25 ml Q30M PRN IV Hypoglycemia 01/21/19 19:45 02/16/19 17:32 Dextrose (Dextrose 50%) 50 ml Q30M PRN IV Hypoglycemia 01/21/19 19:45 02/16/19 17:32 Docusate Sodium (Colace) 100 mg TWICE A DAY ORAL 01/23/19 10:00 02/22/19 09:59 02/02/19 08:49 Furosemide (Lasix) 40 mg DAILY ORAL 01/22/19 09:00 02/21/19 08:59 02/02/19 08:50 Heparin Sodium (Porcine) (Heparin 5000 units/ml) 5,000 units EVERY 12 HOURS SUBQ 01/21/19 21:00 02/16/19 20:59 02/02/19 08:55 Ibuprofen (Motrin) 600 mg Q6H PRN ORAL For Pain 01/31/19 11:30 03/02/19 11:29 02/02/19 02:03 Lidocaine (Xylocaine 1% MPF 5ml) 10 ml Q4H PRN HHN cough 01/21/19 19:13 02/18/19 19:12 Mineral Oil (Fleet's Mineral Oil Enema) 133 ml DAILYPRN PRN RECTAL Constipation 01/24/19 09:30 02/23/19 09:29 01/27/19 13:38 Nitroglycerin (Ntg) 0.4 mg Q5M X 3 DOSES PRN SL Prn Chest Pain 01/21/19 19:15 02/16/19 17:33 Ondansetron HCl (Zofran) 4 mg Q6H PRN IVP Nausea & Vomiting 01/21/19 19:13 02/16/19 19:12 01/29/19 22:13 Polyethylene Glycol (Miralax) 17 gm BEDTIME ORAL 01/24/19 21:00 02/23/19 20:59 01/28/19 21:16 Polyethylene Glycol (Miralax) 17 gm DAILYPRN PRN ORAL Constipation 01/31/19 11:30 03/02/19 11:29 01/31/19 11:57 Potassium Chloride (K-Dur) 40 meq DAILY ORAL 01/25/19 11:00 02/24/19 10:59 02/01/19 08:57 Promethazine HCl/ Codeine (Phenergan with Codeine) 5 ml Q6H PRN ORAL cough 01/21/19 19:14 02/16/19 19:13 01/31/19 16:35 Quetiapine Fumarate (SEROquel) 25 mg Q12HR ORAL 01/21/19 21:00 02/17/19 20:59 02/02/19 08:50 Sucralfate (Carafate) 1 gm TID ORAL 01/28/19 01:15 02/27/19 01:14 02/02/19 08:49 Theophylline (Jimmy-Dur) 100 mg EVERY 12 HOURS ORAL 01/21/19 21:00 02/16/19 20:59 02/02/19 08:50 Katt Ken M.D. Feb 02, 2019 11:01
--- NOTE | 2019-02-02 11:34 | NUR ---
CASE MANAGEMENT:REVIEW 02/02/19 SI: COPD. CHF. UTI 98.4 87 20 127/61 100% ON 2L/NC IS: MOTRIN PO Q6HRS PRN CARAFATE PO TID K-DUR PO QD IV ATIVAN Q4HRS PRN ASA PO QD LASIX PO QD HEPARIN SQ Q12 SEROQUEL PO Q12 ULICES-DUR PO Q12 : MED/SURG 3 [place] [place]: PATIENT HAS HAD A DISCHARGE ORDER SINCE LAST WEEK WEDNESDAY [facility] IS AWARE THAT [facility] GAVE PATIENT'S BED AWAY [facility] HAS BEEN LOOKING TO SECURE A BED FOR THIS PATIENT SINCE WEDNESDAY (01/26/19) PATIENT WILL DISCHARGE SOON BED HAS BEEN SECURED BY [facility] DAILY MESSAGES LEFT FOR [facility] REGARDING BED ASSIGNMENT
--- NOTE | 2019-02-02 12:11 | Pulmonology Progress Note ---
Assessment/Plan Problems: (1) Acute respiratory failure (2) COPD exacerbation (3) Pulmonary hypertension (4) Pulmonary fibrosis (5) Elevated troponin (6) Protein-calorie malnutrition, severe (7) Hypertension Assessment/Plan feel anxious at times, will order Xanax prn all reviewed still constipated feeling better sputum has Pseudomonas cxr better, 01/24 continue abx until sputum is available CT chest reviewed, pt has extensive fibrosis and chronic changes Echo reviewed, Grade one diastolic dysfunction trial of lidocaine inhalers and chronic Methadone to suppress dyspnea. ( it is helping her a lot) f/u cardiology recommendations Poor overall prognosis. Subjective ROS Limited/Unobtainable: No Constitutional: Reports: no symptoms HEENT: Repors: no symptoms Respiratory: Reports: no symptoms Allergies: Coded Allergies: PENICILLINS (Verified Allergy, Unknown, SWELLING EVERYWHERE, EVEN EYES PER PATIENT, 11/24/11) Objective Last 24 Hour Vital Signs Date Time Temp Pulse Resp B/P (MAP) Pulse Ox O2 Delivery O2 Flow Rate FiO2 02/02/19 11:56 98.1 90 18 109/61 (77) 100 02/02/19 09:49 84 24 100 Nasal Cannula 2.0 02/02/19 09:34 Nasal Cannula 2.0 Nasal Cannula 2.0 02/02/19 08:12 98.4 87 20 127/61 (83) 100 02/02/19 07:45 100 2.0 02/02/19 07:45 86 19 Nasal Cannula 2.0 02/02/19 07:45 Nasal Cannula 2.0 02/02/19 04:00 98.0 84 20 112/77 (89) 95 02/02/19 02:33 98.2 02/02/19 00:00 98.2 98 18 131/72 (91) 95 02/01/19 22:38 Nasal Cannula 2.0 02/01/19 22:37 97 Nasal Cannula 2.0 28 02/01/19 21:00 Nasal Cannula 2.0 Nasal Cannula 2.0 02/01/19 20:00 97.7 95 20 120/65 (83) 98 02/01/19 19:00 97 Nasal Cannula 2.0 28 02/01/19 19:00 Nasal Cannula 2.0 28 02/01/19 16:21 70 18 96 Nasal Cannula 2.0 28 02/01/19 16:00 98.0 92 18 119/71 (87) 99 Intake and Output 02/01/19 02/02/19 18:59 06:59 Intake Total 500 ml 900 ml Output Total 950 ml Balance 500 ml -50 ml Intake Oral 500 ml 900 ml Output Urine Total 950 ml # Voids 2 4 # Bowel Movements 2 Objective General Appearance: cachetic HEENT: normocephalic, atraumatic Respiratory/Chest: chest wall non-tender, normal breath sounds Cardiovascular: normal peripheral pulses, regular rhythm Abdomen: normal bowel sounds, soft, non tender Laboratory Tests 02/02/19 05:45: White Blood Count 6.9, Red Blood Count 3.45L, Hemoglobin 9.3L, Hematocrit 30.1L , Mean Corpuscular Volume 87, Mean Corpuscular Hemoglobin 26.9L, Mean Corpuscular Hemoglobin Concent 30.8L, Red Cell Distribution Width 17.5H, Platelet Count 286, Mean Platelet Volume 5.7L, Neutrophils (%) (Auto) 71.1, Lymphocytes (%) (Auto) 14.0L, Monocytes (%) (Auto) 6.8, Eosinophils (%) (Auto) 6.2H, Basophils (%) (Auto) 1.9, Sodium Level 138, Potassium Level 4.4, Chloride Level 101, Carbon Dioxide Level 28, Anion Gap 9, Blood Urea Nitrogen 20H, Creatinine 0.8, Estimat Glomerular Filtration Rate , Glucose Level 95, Calcium Level 10.0 Current Medications Medications (Trade) Dose Ordered Sig/Charly Route PRN Reason Start Time Stop Time Status Last Admin Dose Admin Al Hydroxide/Mg Hydroxide (Mylanta) 30 ml Q6H PRN ORAL stomach upset 01/30/19 14:30 03/01/19 14:29 02/01/19 21:41 Albuterol/ Ipratropium (Albuterol/ Ipratropium) 3 ml Q4H PRN HHN Shortness of Breath 02/01/19 14:45 02/06/19 14:44 02/02/19 09:49 Alprazolam (Xanax) 0.5 mg Q6H PRN ORAL For Anxiety 02/02/19 12:15 02/09/19 12:14 Aspirin (Ecotrin) 81 mg DAILY ORAL 01/22/19 09:00 02/18/19 08:59 02/02/19 08:49 Bisacodyl (Dulcolax) 10 mg BIDPRN PRN RECTAL Constipation 01/23/19 10:00 02/22/19 09:59 01/31/19 15:15 Dextrose (Dextrose 50%) 25 ml Q30M PRN IV Hypoglycemia 01/21/19 19:45 02/16/19 17:32 Dextrose (Dextrose 50%) 50 ml Q30M PRN IV Hypoglycemia 01/21/19 19:45 02/16/19 17:32 Docusate Sodium (Colace) 100 mg TWICE A DAY ORAL 01/23/19 10:00 02/22/19 09:59 02/02/19 08:49 Furosemide (Lasix) 40 mg DAILY ORAL 01/22/19 09:00 02/21/19 08:59 02/02/19 08:50 Heparin Sodium (Porcine) (Heparin 5000 units/ml) 5,000 units EVERY 12 HOURS SUBQ 01/21/19 21:00 02/16/19 20:59 02/02/19 08:55 Ibuprofen (Motrin) 600 mg Q6H PRN ORAL For Pain 01/31/19 11:30 03/02/19 11:29 02/02/19 02:03 Lidocaine (Xylocaine 1% MPF 5ml) 10 ml Q4H PRN HHN cough 01/21/19 19:13 02/18/19 19:12 Mineral Oil (Fleet's Mineral Oil Enema) 133 ml DAILYPRN PRN RECTAL Constipation 01/24/19 09:30 02/23/19 09:29 01/27/19 13:38 Nitroglycerin (Ntg) 0.4 mg Q5M X 3 DOSES PRN SL Prn Chest Pain 01/21/19 19:15 02/16/19 17:33 Ondansetron HCl (Zofran) 4 mg Q6H PRN IVP Nausea & Vomiting 01/21/19 19:13 02/16/19 19:12 01/29/19 22:13 Polyethylene Glycol (Miralax) 17 gm BEDTIME ORAL 01/24/19 21:00 02/23/19 20:59 01/28/19 21:16 Polyethylene Glycol (Miralax) 17 gm DAILYPRN PRN ORAL Constipation 01/31/19 11:30 03/02/19 11:29 01/31/19 11:57 Potassium Chloride (K-Dur) 40 meq DAILY ORAL 01/25/19 11:00 02/24/19 10:59 02/01/19 08:57 Promethazine HCl/ Codeine (Phenergan with Codeine) 5 ml Q6H PRN ORAL cough 01/21/19 19:14 02/16/19 19:13 01/31/19 16:35 Quetiapine Fumarate (SEROquel) 25 mg Q12HR ORAL 01/21/19 21:00 02/17/19 20:59 02/02/19 08:50 Sucralfate (Carafate) 1 gm TID ORAL 01/28/19 01:15 02/27/19 01:14 02/02/19 08:49 Theophylline (Jimmy-Dur) 100 mg EVERY 12 HOURS ORAL 01/21/19 21:00 02/16/19 20:59 02/02/19 08:50 Jersey Chadwick MD Feb 02, 2019 12:11
--- NOTE | 2019-02-02 12:23 | GI Progress Note ---
Assessment/Plan Problems: (1) Anemia ICD Codes: D64.9 - Anemia, unspecified SNOMED: 166207864 (2) Protein-calorie malnutrition, severe ICD Codes: E43 - Unspecified severe protein-calorie malnutrition SNOMED: 654848239, 950545203, 784951357 (3) Constipation ICD Codes: K59.00 - Constipation, unspecified SNOMED: 24975376 Status: stable Status Narrative Discussed with Dr. Mustafa. Assessment/Plan okay for DC per GI standpoint hep C viral load neg bowel regimen given neg stool ob hold in patient GI procedure fu labs The patient was seen and examined at bedside and all new and available data was reviewed in the patients chart. I agree with the above findings, impression and plan. (Patient seen earlier today. Signature stamp does not reflect patient encounter time.). - Adrian Mustafa MD Subjective Gastrointestinal/Abdominal: Reports: no symptoms Subjective abdominal pain improved reported BM Objective Last 24 Hour Vital Signs Date Time Temp Pulse Resp B/P (MAP) Pulse Ox O2 Delivery O2 Flow Rate FiO2 02/02/19 11:56 98.1 90 18 109/61 (77) 100 02/02/19 09:49 84 24 100 Nasal Cannula 2.0 02/02/19 09:34 Nasal Cannula 2.0 Nasal Cannula 2.0 02/02/19 08:12 98.4 87 20 127/61 (83) 100 02/02/19 07:45 100 2.0 02/02/19 07:45 86 19 Nasal Cannula 2.0 02/02/19 07:45 Nasal Cannula 2.0 02/02/19 04:00 98.0 84 20 112/77 (89) 95 02/02/19 02:33 98.2 02/02/19 00:00 98.2 98 18 131/72 (91) 95 02/01/19 22:38 Nasal Cannula 2.0 02/01/19 22:37 97 Nasal Cannula 2.0 02/01/19 21:00 Nasal Cannula 2.0 Nasal Cannula 2.0 02/01/19 20:00 97.7 95 20 120/65 (83) 98 02/01/19 19:00 97 Nasal Cannula 2.0 02/01/19 19:00 Nasal Cannula 2.0 02/01/19 16:21 70 18 96 Nasal Cannula 2.0 28 02/01/19 16:00 98.0 92 18 119/71 (87) 99 Intake and Output 02/01/19 02/02/19 18:59 06:59 Intake Total 500 ml 900 ml Output Total 950 ml Balance 500 ml -50 ml Intake Oral 500 ml 900 ml Output Urine Total 950 ml # Voids 2 4 # Bowel Movements 2 Laboratory Tests Test 02/02/19 05:45 White Blood Count 6.9 K/UL (4.8-10.8) Red Blood Count 3.45 M/UL (4.20-5.40) L Hemoglobin 9.3 G/DL (12.0-16.0) L Hematocrit 30.1 % (37.0-47.0) L Mean Corpuscular Volume 87 FL (80-99) Mean Corpuscular Hemoglobin 26.9 PG (27.0-31.0) L Mean Corpuscular Hemoglobin Concent 30.8 G/DL (32.0-36.0) L Red Cell Distribution Width 17.5 % (11.6-14.8) H Platelet Count 286 K/UL (150-450) Mean Platelet Volume 5.7 FL (6.5-10.1) L Neutrophils (%) (Auto) 71.1 % (45.0-75.0) Lymphocytes (%) (Auto) 14.0 % (20.0-45.0) L Monocytes (%) (Auto) 6.8 % (1.0-10.0) Eosinophils (%) (Auto) 6.2 % (0.0-3.0) H Basophils (%) (Auto) 1.9 % (0.0-2.0) Sodium Level 138 MMOL/L (136-145) Potassium Level 4.4 MMOL/L (3.5-5.1) Chloride Level 101 MMOL/L (98-107) Carbon Dioxide Level 28 MMOL/L (21-32) Anion Gap 9 mmol/L (5-15) Blood Urea Nitrogen 20 mg/dL (7-18) H Creatinine 0.8 MG/DL (0.55-1.30) Estimat Glomerular Filtration Rate mL/min (>60) Glucose Level 95 MG/DL (74-106) Calcium Level 10.0 MG/DL (8.5-10.1) Height (Feet): 5 Height (Inches): 6.00 Weight (Pounds): 110 General Appearance: WD/WN, no apparent distress, alert, thin Cardiovascular: normal rate Respiratory/Chest: normal breath sounds, no respiratory distress Abdominal Exam: normal bowel sounds, non tender, soft Extremities: normal range of motion, non-tender Loy Hamilton NP Feb 02, 2019 12:23
--- NOTE | 2019-02-02 13:16 | NUR ---
NURSE NOTES:WOUND CARE NOTES:Pt presented with partial thickness shearing to R buttocks(L03cm x (W)4.5cm /Base of wound is moist -viable,(+) maceration along edges secondary to pt having urinary and fecal incontinence per staff . Pt demonstrated ability to reposition self when cued .Pt was educated on wound prevention and encouraged to frequently reposition self in bed at least hourly and to off-lift buttocks when lifting up in bed. Pt also instructed to notify staff when soiled to avoid prolonged exposure to B and B incontinence. Recommendations: Apply Triad Paste to buttocks. Cover with Optifoam drsg. Change every 3 days and prn. Encourage and assist as needed with repositioning at least every 2hours or as tolerated.
[2019-02-02] MEDS: ALPRAZolam 0.5mg tab ORAL PRN (13:27)
--- NOTE | 2019-02-02 14:29 | NUR ---
*-* INSURANCE *-* UPDATED CLINICALS,REVIEWS HAVE BEEN FAXED TO: [facility] PLEASE FAX THE REVIEW /CLINICAL NCM: COLETTE P- [phone] X Claudia F- [phone]....
--- NOTE | 2019-02-02 18:19 | NUR ---
NURSE NOTES: Patient resting,dressing to buttocks in place,o2 remains on, call light within reach,patient complain of pain.patient request motrin,will give as ordered.
--- NOTE | 2019-02-02 19:15 | NUR ---
NURSE NOTES:Patient received mik avlerio RRandy Patient in stable condition . RFA G#22 H/L Patent and intact . Call light within reach . bed in low position at all times . will continue to monitor
--- NOTE | 2019-02-02 19:15 | NUR ---
HAND-OFF: Report given to Grisel ABARCA.
[2019-02-02] MEDS: Miralax 17gm pkt ORAL SCH (21:15)
[2019-02-03] VITALS: BP 128/72
[2019-02-03 04:00] VITALS: BP 125/63
[2019-02-03 07:10] LABS: BASOPHILS % (AUTO) 1.5 % (0.0-2.0); EOSINOPHILS % (AUTO) 5.5 % (0.0-3.0); HEMATOCRIT 29.5 % (37.0-47.0); HEMOGLOBIN 9.2 G/DL (12.0-16.0); LYMPHOCYTES % (AUTO) 14.8 % (20.0-45.0); MEAN CORPUSCULAR VOLUME 87 FL (80-99); MONOCYTES % (AUTO) 5.6 % (1.0-10.0); NEUTROPHILS % (AUTO) 72.6 % (45.0-75.0); PLATELET COUNT 283 K/UL (150-450); RED BLOOD COUNT 3.38 M/UL (4.20-5.40); RED CELL DISTRIBUTION WIDTH 17.8 % (11.6-14.8); WHITE BLOOD COUNT 6.6 K/UL (4.8-10.8)
--- NOTE | 2019-02-03 07:30 | NUR ---
NURSE NOTES: Received pt from TEVIN NORIEGA. Pt is alert and orient x4. pt has intact iv access RFA 22G SL. All needs attended, bed is locked and is in the lowest position. call light within easy reach. will continue to monitor.
[2019-02-03 07:32] LABS: ANION GAP 8 mmol/L (5-15); BLOOD UREA NITROGEN 20 mg/dL (7-18); CALCIUM 9.9 MG/DL (8.5-10.1); CARBON DIOXIDE 28 MMOL/L (21-32); CHLORIDE 101 MMOL/L (98-107); CREATININE 0.8 MG/DL (0.55-1.30); SODIUM 137 MMOL/L (136-145)
--- NOTE | 2019-02-03 07:50 | NUR ---
HAND-OFF: Report given to PUJA Rincon
[2019-02-03 08:00] VITALS: BP 96/62
[2019-02-03] MEDS: Sucralfate 1gm tab ORAL SCH ×4 (09:00→17:49)
[2019-02-03] MEDS: Theophylline ER 100mg ORAL SCH ×2 (09:47→20:52)
[2019-02-03] MEDS: Docusate 100mg cap ORAL SCH ×2 (09:47→17:49)
[2019-02-03] MEDS: Aspirin EC 81mg tab ORAL SCH (09:48)
[2019-02-03] MEDS: Furosemide 40mg tab ORAL SCH (09:48)
[2019-02-03] MEDS: Heparin 5000 units/ml inj SUBQ SCH ×2 (09:49→20:52)
[2019-02-03] MEDS: Albuterol/Ipratropium 3ml neb HHN PRN ×2 (10:43→15:51)
[2019-02-03 12:00] VITALS: BP 105/64
--- NOTE | 2019-02-03 12:06 | GI Progress Note ---
Assessment/Plan Problems: (1) Anemia ICD Codes: D64.9 - Anemia, unspecified SNOMED: 292506913 (2) Protein-calorie malnutrition, severe ICD Codes: E43 - Unspecified severe protein-calorie malnutrition SNOMED: 532748535, 636620397, 625205822 (3) Constipation ICD Codes: K59.00 - Constipation, unspecified SNOMED: 48972934 Status: progressing Status Narrative Discussed with Dr. Mustafa. Assessment/Plan okay for DC per GI standpoint hep C viral load neg bowel regimen given neg stool ob hold in patient GI procedure fu labs The patient was seen and examined at bedside and all new and available data was reviewed in the patients chart. I agree with the above findings, impression and plan. (Patient seen earlier today. Signature stamp does not reflect patient encounter time.). - Adrian Mustafa MD Subjective Subjective abdominal pain improved reported BM Objective Last 24 Hour Vital Signs Date Time Temp Pulse Resp B/P (MAP) Pulse Ox O2 Delivery O2 Flow Rate FiO2 02/03/19 11:10 82 20 99 Nasal Cannula 2.0 02/03/19 10:45 99.1 02/03/19 10:40 87 20 100 Nasal Cannula 2.0 02/03/19 09:00 Nasal Cannula 2.0 Nasal Cannula 2.0 02/03/19 08:14 Nasal Cannula 2.0 02/03/19 08:14 99 2.0 28 02/03/19 08:14 79 19 Nasal Cannula 2.0 02/03/19 08:00 99.1 75 20 96/62 (73) 98 02/03/19 04:00 98.4 77 20 125/63 (83) 98 02/03/19 00:00 97.8 90 20 128/72 (90) 100 02/02/19 21:50 99 19 Nasal Cannula 2.0 28 02/02/19 21:50 98 2.0 28 02/02/19 21:50 Nasal Cannula 2.0 28 02/02/19 21:00 Nasal Cannula 2.0 Nasal Cannula 2.0 02/02/19 20:01 98.0 97 18 128/72 (90) 100 02/02/19 20:00 98.0 103 18 132/73 (92) 98 02/02/19 16:00 98.6 93 18 103/72 (82) 100 Intake and Output 02/02/19 02/03/19 18:59 06:59 Intake Total 480 ml 520 ml Balance 480 ml 520 ml Intake Oral 480 ml 520 ml # Voids 5 4 # Bowel Movements 4 Laboratory Tests Test 02/03/19 05:35 White Blood Count 6.6 K/UL (4.8-10.8) Red Blood Count 3.38 M/UL (4.20-5.40) L Hemoglobin 9.2 G/DL (12.0-16.0) L Hematocrit 29.5 % (37.0-47.0) L Mean Corpuscular Volume 87 FL (80-99) Mean Corpuscular Hemoglobin 27.2 PG (27.0-31.0) Mean Corpuscular Hemoglobin Concent 31.2 G/DL (32.0-36.0) L Red Cell Distribution Width 17.8 % (11.6-14.8) H Platelet Count 283 K/UL (150-450) Mean Platelet Volume 6.4 FL (6.5-10.1) L Neutrophils (%) (Auto) 72.6 % (45.0-75.0) Lymphocytes (%) (Auto) 14.8 % (20.0-45.0) L Monocytes (%) (Auto) 5.6 % (1.0-10.0) Eosinophils (%) (Auto) 5.5 % (0.0-3.0) H Basophils (%) (Auto) 1.5 % (0.0-2.0) Sodium Level 137 MMOL/L (136-145) Potassium Level 4.0 MMOL/L (3.5-5.1) Chloride Level 101 MMOL/L (98-107) Carbon Dioxide Level 28 MMOL/L (21-32) Anion Gap 8 mmol/L (5-15) Blood Urea Nitrogen 20 mg/dL (7-18) H Creatinine 0.8 MG/DL (0.55-1.30) Estimat Glomerular Filtration Rate mL/min (>60) Glucose Level 97 MG/DL (74-106) Calcium Level 9.9 MG/DL (8.5-10.1) Height (Feet): 5 Height (Inches): 6.00 Weight (Pounds): 110 General Appearance: WD/WN, no apparent distress, alert Cardiovascular: normal rate Respiratory/Chest: normal breath sounds, no respiratory distress Abdominal Exam: normal bowel sounds, non tender, soft Extremities: non-tender Loy Hamilton NP Feb 03, 2019 12:06
--- NOTE | 2019-02-03 12:07 | Infectious Diseases Prog Note ---
Assessment/Plan Assessment/Plan Assessment: Probable Aspiration PNA vs pneumonitis, sp Rx -sp cx PsA (R Levo/Cipro; otherwise S including Aztreonam) Pneumomediastinum-suspected to rupture R side paratracheal bleb -01/25 CXR: Suspected interstitial disease. This may be chronic due to fibrosis. Pneumomediastinum. -01/20 CXR: Increasing bilateral parenchymal opacities, likely reflecting increasing edema or infiltrate superimposed on pre-existing chronic opacities. Central mediastinal lucency, likely reflects pneumomediastinum described on recent chest CT -CTA chest: Negative for acute pulmonary embolus or other acute thoracic vascular pathology. Pneumomediastinum. Suspect due to a ruptured right-sided medial bleb. Evidence of extensive chronic pulmonary parenchymal interstitial disease, with areas of honeycombing and bronchiectasis. No definite acute pulmonary parenchymal process. Ectatic main and left main pulmonary arteries, suggestive of pulmonary arterial hypertension. Bullae and subpleural blebs, may be related to the interstitial fibrotic process or could represent COPD changes -CXR: Cardiomegaly. Bilateral extensive interstitial and airspace opacities, slightly increased from but similar in distribution to prior study of 2017. Suspect component of chronic interstitial fibrosis with superimposed acute edema or infiltrates -influenza sc neg Afebrile No leukocytosis AST elevation; improving -HIV ab sc neg -Hep C+, VL neg; cleared infection DM HTN TX CAD CHF cervical radiculopathy CVA asthma COPD /Emphysema sp Bilateral hip replacement retirement resident Plan: -Continue to monitor off abx -01/25 SP Aztreonam #7 -01/24 SP Azithromycin #5 -01/17 SP Ceftriaxone x1 -f/u cx -monitor CBC/CMP, temperatures -aspiration precautions Subjective Allergies: Coded Allergies: PENICILLINS (Verified Allergy, Unknown, SWELLING EVERYWHERE, EVEN EYES PER PATIENT, 11/24/11) Subjective afebrile at 2l NC no leukocytosis off abx Objective Vital Signs Last 24 Hour Vital Signs Date Time Temp Pulse Resp B/P (MAP) Pulse Ox O2 Delivery O2 Flow Rate FiO2 02/03/19 11:10 82 20 99 Nasal Cannula 2.0 28 02/03/19 10:45 99.1 02/03/19 10:40 87 20 100 Nasal Cannula 2.0 02/03/19 09:00 Nasal Cannula 2.0 Nasal Cannula 2.0 02/03/19 08:14 Nasal Cannula 2.0 28 02/03/19 08:14 99 2.0 28 02/03/19 08:14 79 19 Nasal Cannula 2.0 28 02/03/19 08:00 99.1 75 20 96/62 (73) 98 02/03/19 04:00 98.4 77 20 125/63 (83) 98 02/03/19 00:00 97.8 90 20 128/72 (90) 100 02/02/19 21:50 99 19 Nasal Cannula 2.0 28 02/02/19 21:50 98 2.0 28 02/02/19 21:50 Nasal Cannula 2.0 28 02/02/19 21:00 Nasal Cannula 2.0 Nasal Cannula 2.0 02/02/19 20:01 98.0 97 18 128/72 (90) 100 02/02/19 20:00 98.0 103 18 132/73 (92) 98 02/02/19 16:00 98.6 93 18 103/72 (82) 100 Height (Feet): 5 Height (Inches): 6.00 Weight (Pounds): 110 Objective GENERAL: Calm in bed, O2 NC, slight short of breath. Oriented x2, no acute distress. CARDIOVASCULAR: No murmurs. LUNGS: Poor air exchange. ABDOMEN: Bowel sounds distant. EXTREMITIES: No cyanosis, clubbing, or edema. NEUROLOGIC: The patient moves all extremities, slightly weak. Laboratory Tests Test 02/03/19 05:35 White Blood Count 6.6 K/UL (4.8-10.8) Red Blood Count 3.38 M/UL (4.20-5.40) L Hemoglobin 9.2 G/DL (12.0-16.0) L Hematocrit 29.5 % (37.0-47.0) L Mean Corpuscular Volume 87 FL (80-99) Mean Corpuscular Hemoglobin 27.2 PG (27.0-31.0) Mean Corpuscular Hemoglobin Concent 31.2 G/DL (32.0-36.0) L Red Cell Distribution Width 17.8 % (11.6-14.8) H Platelet Count 283 K/UL (150-450) Mean Platelet Volume 6.4 FL (6.5-10.1) L Neutrophils (%) (Auto) 72.6 % (45.0-75.0) Lymphocytes (%) (Auto) 14.8 % (20.0-45.0) L Monocytes (%) (Auto) 5.6 % (1.0-10.0) Eosinophils (%) (Auto) 5.5 % (0.0-3.0) H Basophils (%) (Auto) 1.5 % (0.0-2.0) Sodium Level 137 MMOL/L (136-145) Potassium Level 4.0 MMOL/L (3.5-5.1) Chloride Level 101 MMOL/L (98-107) Carbon Dioxide Level 28 MMOL/L (21-32) Anion Gap 8 mmol/L (5-15) Blood Urea Nitrogen 20 mg/dL (7-18) H Creatinine 0.8 MG/DL (0.55-1.30) Estimat Glomerular Filtration Rate mL/min (>60) Glucose Level 97 MG/DL (74-106) Calcium Level 9.9 MG/DL (8.5-10.1) Current Medications Medications (Trade) Dose Ordered Sig/Charly Route PRN Reason Start Time Stop Time Status Last Admin Dose Admin Al Hydroxide/Mg Hydroxide (Mylanta) 30 ml Q6H PRN ORAL stomach upset 01/30/19 14:30 03/01/19 14:29 02/02/19 22:41 Albuterol/ Ipratropium (Albuterol/ Ipratropium) 3 ml Q4H PRN HHN Shortness of Breath 02/01/19 14:45 02/06/19 14:44 02/03/19 10:43 Alprazolam (Xanax) 0.5 mg Q6H PRN ORAL For Anxiety 02/02/19 12:15 02/09/19 12:14 02/02/19 13:27 Aspirin (Ecotrin) 81 mg DAILY ORAL 01/22/19 09:00 02/18/19 08:59 02/03/19 09:48 Bisacodyl (Dulcolax) 10 mg BIDPRN PRN RECTAL Constipation 01/23/19 10:00 02/22/19 09:59 01/31/19 15:15 Dextrose (Dextrose 50%) 25 ml Q30M PRN IV Hypoglycemia 01/21/19 19:45 02/16/19 17:32 Dextrose (Dextrose 50%) 50 ml Q30M PRN IV Hypoglycemia 01/21/19 19:45 02/16/19 17:32 Docusate Sodium (Colace) 100 mg TWICE A DAY ORAL 01/23/19 10:00 02/22/19 09:59 02/03/19 09:47 Furosemide (Lasix) 40 mg DAILY ORAL 01/22/19 09:00 02/21/19 08:59 02/03/19 09:48 Heparin Sodium (Porcine) (Heparin 5000 units/ml) 5,000 units EVERY 12 HOURS SUBQ 01/21/19 21:00 02/16/19 20:59 02/03/19 09:49 Ibuprofen (Motrin) 600 mg Q6H PRN ORAL For Pain 01/31/19 11:30 03/02/19 11:29 02/03/19 10:15 Lidocaine (Xylocaine 1% MPF 5ml) 10 ml Q4H PRN HHN cough 01/21/19 19:13 02/18/19 19:12 Mineral Oil (Fleet's Mineral Oil Enema) 133 ml DAILYPRN PRN RECTAL Constipation 01/24/19 09:30 02/23/19 09:29 01/27/19 13:38 Nitroglycerin (Ntg) 0.4 mg Q5M X 3 DOSES PRN SL Prn Chest Pain 01/21/19 19:15 02/16/19 17:33 Ondansetron HCl (Zofran) 4 mg Q6H PRN IVP Nausea & Vomiting 01/21/19 19:13 02/16/19 19:12 01/29/19 22:13 Polyethylene Glycol (Miralax) 17 gm BEDTIME ORAL 01/24/19 21:00 02/23/19 20:59 02/02/19 21:15 Polyethylene Glycol (Miralax) 17 gm DAILYPRN PRN ORAL Constipation 01/31/19 11:30 03/02/19 11:29 01/31/19 11:57 Potassium Chloride (K-Dur) 40 meq DAILY ORAL 01/25/19 11:00 02/24/19 10:59 02/01/19 08:57 Promethazine HCl/ Codeine (Phenergan with Codeine) 5 ml Q6H PRN ORAL cough 01/21/19 19:14 02/16/19 19:13 01/31/19 16:35 Quetiapine Fumarate (SEROquel) 25 mg Q12HR ORAL 01/21/19 21:00 02/17/19 20:59 02/03/19 09:47 Sucralfate (Carafate) 1 gm TID ORAL 01/28/19 01:15 02/27/19 01:14 02/02/19 18:19 Theophylline (Jimmy-Dur) 100 mg EVERY 12 HOURS ORAL 01/21/19 21:00 02/16/19 20:59 02/03/19 09:47 Katt Ken M.D. Feb 03, 2019 12:07
--- NOTE | 2019-02-03 12:44 | NUR ---
CASE MANAGEMENT:REVIEW 02/03/19 SI: COPD. CHF. UTI 97.8 93 18 105/64 100% ON 2L/NC H/H-9.2/29.5 IS: MOTRIN PO Q6HRS PRN CARAFATE PO TID K-DUR PO QD IV ATIVAN Q4HRS PRN ASA PO QD LASIX PO QD HEPARIN SQ Q12 SEROQUEL PO Q12 ULICES-DUR PO Q12 : MED/SURG 3 [facility]: PATIENT HAS HAD A DISCHARGE ORDER SINCE LAST WEEK WEDNESDAY [facility] IS AWARE THAT [facility] GAVE PATIENT'S BED AWAY [facility] HAS BEEN LOOKING TO SECURE A BED FOR THIS PATIENT SINCE WEDNESDAY (01/26/19) PATIENT WILL DISCHARGE SOON BED HAS BEEN SECURED BY [facility] DAILY MESSAGES LEFT FOR [facility] REGARDING BED ASSIGNMENT
--- NOTE | 2019-02-03 12:46 | NUR ---
DISCHARGE PLANNING WE ARE WAITING FOR THE [facility] TO ARRANGE SNF PLACEMENT FOR THIS PATIENT SINCE ORIGINAL BED WAS LOST
--- NOTE | 2019-02-03 14:47 | Pulmonology Progress Note ---
Assessment/Plan Problems: (1) Acute respiratory failure (2) COPD exacerbation (3) Pulmonary hypertension (4) Pulmonary fibrosis (5) Elevated troponin (6) Protein-calorie malnutrition, severe (7) Hypertension Assessment/Plan c/o joint pain all reviewed still constipated feeling better awaiting dc planning Subjective ROS Limited/Unobtainable: No Constitutional: Reports: no symptoms HEENT: Repors: no symptoms Respiratory: Reports: no symptoms Allergies: Coded Allergies: PENICILLINS (Verified Allergy, Unknown, SWELLING EVERYWHERE, EVEN EYES PER PATIENT, 11/24/11) Objective Last 24 Hour Vital Signs Date Time Temp Pulse Resp B/P (MAP) Pulse Ox O2 Delivery O2 Flow Rate FiO2 02/03/19 12:00 97.8 93 18 105/64 (78) 100 02/03/19 11:10 82 20 99 Nasal Cannula 2.0 02/03/19 10:45 99.1 02/03/19 10:40 87 20 100 Nasal Cannula 2.0 02/03/19 09:00 Nasal Cannula 2.0 Nasal Cannula 2.0 02/03/19 08:14 Nasal Cannula 2.0 02/03/19 08:14 99 2.0 28 02/03/19 08:14 79 19 Nasal Cannula 2.0 28 02/03/19 08:00 99.1 75 20 96/62 (73) 98 02/03/19 04:00 98.4 77 20 125/63 (83) 98 02/03/19 00:00 97.8 90 20 128/72 (90) 100 02/02/19 21:50 99 19 Nasal Cannula 2.0 02/02/19 21:50 98 2.0 28 02/02/19 21:50 Nasal Cannula 2.0 28 02/02/19 21:00 Nasal Cannula 2.0 Nasal Cannula 2.0 02/02/19 20:01 98.0 97 18 128/72 (90) 100 02/02/19 20:00 98.0 103 18 132/73 (92) 98 02/02/19 16:00 98.6 93 18 103/72 (82) 100 Intake and Output 02/02/19 02/03/19 18:59 06:59 Intake Total 480 ml 520 ml Balance 480 ml 520 ml Intake Oral 480 ml 520 ml # Voids 5 4 # Bowel Movements 4 Objective General Appearance: cachetic HEENT: normocephalic, atraumatic Respiratory/Chest: chest wall non-tender, normal breath sounds Cardiovascular: normal peripheral pulses, regular rhythm Abdomen: normal bowel sounds, soft, non tender Laboratory Tests 02/03/19 05:35: White Blood Count 6.6, Red Blood Count 3.38L, Hemoglobin 9.2L, Hematocrit 29.5L , Mean Corpuscular Volume 87, Mean Corpuscular Hemoglobin 27.2, Mean Corpuscular Hemoglobin Concent 31.2L, Red Cell Distribution Width 17.8H, Platelet Count 283, Mean Platelet Volume 6.4L, Neutrophils (%) (Auto) 72.6, Lymphocytes (%) (Auto) 14.8L, Monocytes (%) (Auto) 5.6, Eosinophils (%) (Auto) 5.5H, Basophils (%) (Auto) 1.5, Sodium Level 137, Potassium Level 4.0, Chloride Level 101, Carbon Dioxide Level 28, Anion Gap 8, Blood Urea Nitrogen 20H, Creatinine 0.8, Estimat Glomerular Filtration Rate , Glucose Level 97, Calcium Level 9.9 Current Medications Medications (Trade) Dose Ordered Sig/Charly Route PRN Reason Start Time Stop Time Status Last Admin Dose Admin Al Hydroxide/Mg Hydroxide (Mylanta) 30 ml Q6H PRN ORAL stomach upset 01/30/19 14:30 03/01/19 14:29 02/02/19 22:41 Albuterol/ Ipratropium (Albuterol/ Ipratropium) 3 ml Q4H PRN HHN Shortness of Breath 02/01/19 14:45 02/06/19 14:44 02/03/19 10:43 Alprazolam (Xanax) 0.5 mg Q6H PRN ORAL For Anxiety 02/02/19 12:15 02/09/19 12:14 02/02/19 13:27 Aspirin (Ecotrin) 81 mg DAILY ORAL 01/22/19 09:00 02/18/19 08:59 02/03/19 09:48 Bisacodyl (Dulcolax) 10 mg BIDPRN PRN RECTAL Constipation 01/23/19 10:00 02/22/19 09:59 01/31/19 15:15 Dextrose (Dextrose 50%) 25 ml Q30M PRN IV Hypoglycemia 01/21/19 19:45 4/11/19 17:32 Dextrose (Dextrose 50%) 50 ml Q30M PRN IV Hypoglycemia 01/21/19 19:45 02/16/19 17:32 Docusate Sodium (Colace) 100 mg TWICE A DAY ORAL 01/23/19 10:00 02/22/19 09:59 02/03/19 09:47 Furosemide (Lasix) 40 mg DAILY ORAL 01/22/19 09:00 02/21/19 08:59 02/03/19 09:48 Heparin Sodium (Porcine) (Heparin 5000 units/ml) 5,000 units EVERY 12 HOURS SUBQ 01/21/19 21:00 02/16/19 20:59 02/03/19 09:49 Ibuprofen (Motrin) 600 mg Q6H PRN ORAL For Pain 01/31/19 11:30 03/02/19 11:29 02/03/19 10:15 Lidocaine (Xylocaine 1% MPF 5ml) 10 ml Q4H PRN HHN cough 01/21/19 19:13 02/18/19 19:12 Mineral Oil (Fleet's Mineral Oil Enema) 133 ml DAILYPRN PRN RECTAL Constipation 01/24/19 09:30 02/23/19 09:29 01/27/19 13:38 Nitroglycerin (Ntg) 0.4 mg Q5M X 3 DOSES PRN SL Prn Chest Pain 01/21/19 19:15 02/16/19 17:33 Ondansetron HCl (Zofran) 4 mg Q6H PRN IVP Nausea & Vomiting 01/21/19 19:13 02/16/19 19:12 01/29/19 22:13 Polyethylene Glycol (Miralax) 17 gm BEDTIME ORAL 01/24/19 21:00 02/23/19 20:59 02/02/19 21:15 Polyethylene Glycol (Miralax) 17 gm DAILYPRN PRN ORAL Constipation 01/31/19 11:30 03/02/19 11:29 01/31/19 11:57 Potassium Chloride (K-Dur) 40 meq DAILY ORAL 01/25/19 11:00 02/24/19 10:59 02/01/19 08:57 Promethazine HCl/ Codeine (Phenergan with Codeine) 5 ml Q6H PRN ORAL cough 01/21/19 19:14 02/16/19 19:13 01/31/19 16:35 Quetiapine Fumarate (SEROquel) 25 mg Q12HR ORAL 01/21/19 21:00 02/17/19 20:59 02/03/19 09:47 Sucralfate (Carafate) 1 gm TID ORAL 01/28/19 01:15 02/27/19 01:14 02/02/19 18:19 Theophylline (Jimmy-Dur) 100 mg EVERY 12 HOURS ORAL 01/21/19 21:00 02/16/19 20:59 02/03/19 09:47 Jersey Chadwick MD Feb 03, 2019 14:47
--- NOTE | 2019-02-03 15:32 | Cardiac Electrophysiology PN ---
Assessment/Plan Assessment/Plan 1. Type 2 NSTEMI. No CP or SOB. EF normal . ECG incomplete LBBB, LVH. On aspirin and off Beta ehsan for asthma 2. CHF due to diastolic dysfunction with BNP >1500. On Lasix 40 mg po daily 3. Hypertension. On Lasix 4. COPD exacerbation and severe pulmonary HTN 5. Anemia. 6. UTI 8. Osteoarthritis. 9. Cervical radiculopathy. 10. Constipation, resolved 11. Placement issue DW RN Subjective Subjective Comfortable in NAD awaiting placement.No events. Constipation resolved Objective Last 24 Hour Vital Signs Date Time Temp Pulse Resp B/P (MAP) Pulse Ox O2 Delivery O2 Flow Rate FiO2 02/03/19 12:00 97.8 93 18 105/64 (78) 100 02/03/19 11:10 82 20 99 Nasal Cannula 2.0 28 02/03/19 10:45 99.1 02/03/19 10:40 87 20 100 Nasal Cannula 2.0 28 02/03/19 09:00 Nasal Cannula 2.0 Nasal Cannula 2.0 02/03/19 08:14 Nasal Cannula 2.0 28 02/03/19 08:14 99 2.0 28 02/03/19 08:14 79 19 Nasal Cannula 2.0 28 02/03/19 08:00 99.1 75 20 96/62 (73) 98 02/03/19 04:00 98.4 77 20 125/63 (83) 98 02/03/19 00:00 97.8 90 20 128/72 (90) 100 02/02/19 21:50 99 19 Nasal Cannula 2.0 28 02/02/19 21:50 98 2.0 28 02/02/19 21:50 Nasal Cannula 2.0 28 02/02/19 21:00 Nasal Cannula 2.0 Nasal Cannula 2.0 02/02/19 20:01 98.0 97 18 128/72 (90) 100 02/02/19 20:00 98.0 103 18 132/73 (92) 98 02/02/19 16:00 98.6 93 18 103/72 (82) 100 Intake and Output 02/02/19 02/03/19 18:59 06:59 Intake Total 480 ml 520 ml Balance 480 ml 520 ml Intake Oral 480 ml 520 ml # Voids 5 4 # Bowel Movements 4 Laboratory Tests Test 3/29/19 05:35 White Blood Count 6.6 K/UL (4.8-10.8) Red Blood Count 3.38 M/UL (4.20-5.40) L Hemoglobin 9.2 G/DL (12.0-16.0) L Hematocrit 29.5 % (37.0-47.0) L Mean Corpuscular Volume 87 FL (80-99) Mean Corpuscular Hemoglobin 27.2 PG (27.0-31.0) Mean Corpuscular Hemoglobin Concent 31.2 G/DL (32.0-36.0) L Red Cell Distribution Width 17.8 % (11.6-14.8) H Platelet Count 283 K/UL (150-450) Mean Platelet Volume 6.4 FL (6.5-10.1) L Neutrophils (%) (Auto) 72.6 % (45.0-75.0) Lymphocytes (%) (Auto) 14.8 % (20.0-45.0) L Monocytes (%) (Auto) 5.6 % (1.0-10.0) Eosinophils (%) (Auto) 5.5 % (0.0-3.0) H Basophils (%) (Auto) 1.5 % (0.0-2.0) Sodium Level 137 MMOL/L (136-145) Potassium Level 4.0 MMOL/L (3.5-5.1) Chloride Level 101 MMOL/L (98-107) Carbon Dioxide Level 28 MMOL/L (21-32) Anion Gap 8 mmol/L (5-15) Blood Urea Nitrogen 20 mg/dL (7-18) H Creatinine 0.8 MG/DL (0.55-1.30) Estimat Glomerular Filtration Rate mL/min (>60) Glucose Level 97 MG/DL (74-106) Calcium Level 9.9 MG/DL (8.5-10.1) Objective HEENT: No JVD Respiratory/Chest: Clear Cardiovascular/Chest: Normal S1, S2. normal rate, regular rhythm Abdomen: normal bowel sounds, non tender, Extremities: No edema Renzo Burgess MD Feb 03, 2019 15:32
[2019-02-03 16:00] VITALS: BP 108/62
[2019-02-03] MEDS: ALPRAZolam 0.5mg tab ORAL PRN (17:49)
[2019-02-03] MEDS: HYDROcodone/Acetamin 5/325 tab ORAL PRN (19:09)
--- NOTE | 2019-02-03 19:55 | NUR ---
HAND-OFF: Report given to HUSSEIN GARCIA.
[2019-02-03 20:00] VITALS: BP 112/61
[2019-02-03] MEDS: Miralax 17gm pkt ORAL SCH (20:50)
--- NOTE | 2019-02-03 21:51 | General Progress Note ---
Assessment/Plan Problem List: (1) Protein-calorie malnutrition, severe ICD Codes: E43 - Unspecified severe protein-calorie malnutrition SNOMED: 719715500, 627019698, 012191077 (2) Arthritis ICD Codes: M19.90 - Unspecified osteoarthritis, unspecified site SNOMED: 7723719 (3) UTI (urinary tract infection) ICD Codes: N39.0 - Urinary tract infection, site not specified SNOMED: 11262245 (4) Anemia ICD Codes: D64.9 - Anemia, unspecified SNOMED: 362835182 (5) Pulmonary hypertension ICD Codes: I27.20 - Pulmonary hypertension, unspecified SNOMED: 85506256 (6) Pulmonary fibrosis ICD Codes: J84.10 - Pulmonary fibrosis, unspecified SNOMED: 91309044 (7) Hypertension ICD Codes: I10 - Essential (primary) hypertension SNOMED: 86532615 (8) Cervical radiculopathy ICD Codes: M54.12 - Radiculopathy, cervical region SNOMED: 33120360 (9) Hip osteoarthritis ICD Codes: M16.9 - Osteoarthritis of hip, unspecified SNOMED: 202440041 (10) COPD exacerbation ICD Codes: J44.1 - Chronic obstructive pulmonary disease with (acute) exacerbation SNOMED: 637600140, 579879922, 469546938 (11) CHF exacerbation ICD Codes: I50.9 - Heart failure, unspecified SNOMED: 90327044, 686984433, 220885093 Status: progressing Assessment/Plan anemia no bleeding chf is under control rhonci bilat not hypoxic pulmonary fibrosis dyspnea afebrile chronic pain pulm htn htn daysi Subjective ROS Limited/Unobtainable: Yes Allergies: Coded Allergies: PENICILLINS (Verified Allergy, Unknown, SWELLING EVERYWHERE, EVEN EYES PER PATIENT, 11/24/11) Objective Last 24 Hour Vital Signs Date Time Temp Pulse Resp B/P (MAP) Pulse Ox O2 Delivery O2 Flow Rate FiO2 02/03/19 20:00 97.5 86 20 112/61 (78) 100 02/03/19 19:39 99.2 02/03/19 16:00 99.2 92 16 108/62 (77) 98 02/03/19 15:51 84 20 100 Nasal Cannula 2.0 28 02/03/19 12:00 97.8 93 18 105/64 (78) 100 3/29/19 11:10 82 20 99 Nasal Cannula 2.0 28 02/03/19 10:45 99.1 02/03/19 10:40 87 20 100 Nasal Cannula 2.0 02/03/19 09:00 Nasal Cannula 2.0 Nasal Cannula 2.0 02/03/19 08:14 Nasal Cannula 2.0 28 02/03/19 08:14 99 2.0 28 02/03/19 08:14 79 19 Nasal Cannula 2.0 02/03/19 08:00 99.1 75 20 96/62 (73) 98 02/03/19 04:00 98.4 77 20 125/63 (83) 98 02/03/19 00:00 97.8 90 20 128/72 (90) 100 Intake and Output 02/02/19 02/03/19 19:00 07:00 Intake Total 480 ml 520 ml Balance 480 ml 520 ml Intake Oral 480 ml 520 ml # Voids 5 4 # Bowel Movements 4 Laboratory Tests 02/03/19 05:35: White Blood Count 6.6, Red Blood Count 3.38L, Hemoglobin 9.2L, Hematocrit 29.5L , Mean Corpuscular Volume 87, Mean Corpuscular Hemoglobin 27.2, Mean Corpuscular Hemoglobin Concent 31.2L, Red Cell Distribution Width 17.8H, Platelet Count 283, Mean Platelet Volume 6.4L, Neutrophils (%) (Auto) 72.6, Lymphocytes (%) (Auto) 14.8L, Monocytes (%) (Auto) 5.6, Eosinophils (%) (Auto) 5.5H, Basophils (%) (Auto) 1.5, Sodium Level 137, Potassium Level 4.0, Chloride Level 101, Carbon Dioxide Level 28, Anion Gap 8, Blood Urea Nitrogen 20H, Creatinine 0.8, Estimat Glomerular Filtration Rate , Glucose Level 97, Calcium Level 9.9 Height (Feet): 5 Height (Inches): 6.00 Weight (Pounds): 110 Neck: supple Cardiovascular: normal rate Respiratory/Chest: lungs clear Abdomen: soft Jennifer Chahal MD Feb 03, 2019 21:51
[2019-02-04] VITALS: BP 91/53
[2019-02-04 04:00] VITALS: BP 95/57
[2019-02-04 07:11] LABS: BASOPHILS % (AUTO) 1.5 % (0.0-2.0); HEMATOCRIT 29.6 % (37.0-47.0); HEMOGLOBIN 9.2 G/DL (12.0-16.0); LYMPHOCYTES % (AUTO) 18.8 % (20.0-45.0); MEAN CORPUSCULAR VOLUME 87 FL (80-99); MONOCYTES % (AUTO) 5.2 % (1.0-10.0); NEUTROPHILS % (AUTO) 67.5 % (45.0-75.0); PLATELET COUNT 272 K/UL (150-450); RED BLOOD COUNT 3.39 M/UL (4.20-5.40); RED CELL DISTRIBUTION WIDTH 17.5 % (11.6-14.8); WHITE BLOOD COUNT 5.5 K/UL (4.8-10.8)
[2019-02-04 07:14] LABS: ANION GAP 9 mmol/L (5-15); BLOOD UREA NITROGEN 21 mg/dL (7-18); CARBON DIOXIDE 28 MMOL/L (21-32); CHLORIDE 100 MMOL/L (98-107); CREATININE 0.8 MG/DL (0.55-1.30); POTASSIUM 3.7 MMOL/L (3.5-5.1); SODIUM 137 MMOL/L (136-145)
--- NOTE | 2019-02-04 07:18 | NUR ---
HAND-OFF: Report given to HUSSEIN Pride. Pt in stable condition.
--- NOTE | 2019-02-04 07:57 | NUR ---
NURSE NOTES: Received report from Lyubov SAVAGE. patient is awake alert and oriented x4, no acute distress noted. On 2L NC. Reporting no pain at this time. Fall precautions maintained. Side rails upx3, bed low and locked, call light in reach. Will continue to monitor.
[2019-02-04 08:00] VITALS: BP 99/54
--- NOTE | 2019-02-04 08:30 | Infectious Diseases Prog Note ---
Assessment/Plan Assessment/Plan Probable Aspiration PNA vs pneumonitis, sp Rx -sp cx PsA (R Levo/Cipro; otherwise S including Aztreonam) Pneumomediastinum-suspected to rupture R side paratracheal bleb -01/25 CXR: Suspected interstitial disease. This may be chronic due to fibrosis. Pneumomediastinum. -01/20 CXR: Increasing bilateral parenchymal opacities, likely reflecting increasing edema or infiltrate superimposed on pre-existing chronic opacities. Central mediastinal lucency, likely reflects pneumomediastinum described on recent chest CT -CTA chest: Negative for acute pulmonary embolus or other acute thoracic vascular pathology. Pneumomediastinum. Suspect due to a ruptured right-sided medial bleb. Evidence of extensive chronic pulmonary parenchymal interstitial disease, with areas of honeycombing and bronchiectasis. No definite acute pulmonary parenchymal process. Ectatic main and left main pulmonary arteries, suggestive of pulmonary arterial hypertension. Bullae and subpleural blebs, may be related to the interstitial fibrotic process or could represent COPD changes -CXR: Cardiomegaly. Bilateral extensive interstitial and airspace opacities, slightly increased from but similar in distribution to prior study of 2017. Suspect component of chronic interstitial fibrosis with superimposed acute edema or infiltrates -influenza sc neg Afebrile No leukocytosis AST elevation; improving -HIV ab sc neg -Hep C+, VL neg; cleared infection DM HTN PA CAD CHF cervical radiculopathy CVA asthma COPD /Emphysema sp Bilateral hip replacement skilled nursing resident Plan: -Continue to monitor off abx -01/25 SP Aztreonam #7 -01/24 SP Azithromycin #5 -01/17 SP Ceftriaxone x1 -f/u cx -monitor CBC/CMP, temperatures -aspiration precautions Subjective Allergies: Coded Allergies: PENICILLINS (Verified Allergy, Unknown, SWELLING EVERYWHERE, EVEN EYES PER PATIENT, 11/24/11) Subjective Afebrile Sattign well on 2L NC JAMEL Objective Vital Signs Last 24 Hour Vital Signs Date Time Temp Pulse Resp B/P (MAP) Pulse Ox O2 Delivery O2 Flow Rate FiO2 02/04/19 08:00 97.7 84 17 99/54 (69) 99 02/04/19 04:00 97.8 84 17 95/57 (70) 99 02/04/19 00:00 97.2 82 17 91/53 (66) 100 02/03/19 22:06 98 2.0 28 02/03/19 22:06 Nasal Cannula 2.0 28 02/03/19 22:06 82 19 Nasal Cannula 2.0 28 02/03/19 21:00 Nasal Cannula 2.0 Nasal Cannula 2.0 02/03/19 20:00 97.5 86 20 112/61 (78) 100 02/03/19 19:39 99.2 02/03/19 19:00 Nasal Cannula 2.0 28 02/03/19 19:00 98 2.0 28 02/03/19 19:00 82 19 Nasal Cannula 2.0 28 02/03/19 16:00 99.2 92 16 108/62 (77) 98 02/03/19 15:51 84 20 100 Nasal Cannula 2.0 28 02/03/19 12:00 97.8 93 18 105/64 (78) 100 02/03/19 11:10 82 20 99 Nasal Cannula 2.0 28 02/03/19 10:45 99.1 02/03/19 10:40 87 20 100 Nasal Cannula 2.0 28 02/03/19 09:00 Nasal Cannula 2.0 Nasal Cannula 2.0 Height (Feet): 5 Height (Inches): 6.00 Weight (Pounds): 110 Objective GENERAL: NAD, On 2L NC CARDIOVASCULAR: RRR, No murmurs. LUNGS: Course B/L ABDOMEN: Soft, + BS, ND NEUROLOGIC: A/o X2 The patient moves all extremities, slightly weak. Laboratory Tests Test 02/04/19 05:00 White Blood Count 5.5 K/UL (4.8-10.8) Red Blood Count 3.39 M/UL (4.20-5.40) L Hemoglobin 9.2 G/DL (12.0-16.0) L Hematocrit 29.6 % (37.0-47.0) L Mean Corpuscular Volume 87 FL (80-99) Mean Corpuscular Hemoglobin 27.2 PG (27.0-31.0) Mean Corpuscular Hemoglobin Concent 31.2 G/DL (32.0-36.0) L Red Cell Distribution Width 17.5 % (11.6-14.8) H Platelet Count 272 K/UL (150-450) Mean Platelet Volume 5.6 FL (6.5-10.1) L Neutrophils (%) (Auto) 67.5 % (45.0-75.0) Lymphocytes (%) (Auto) 18.8 % (20.0-45.0) L Monocytes (%) (Auto) 5.2 % (1.0-10.0) Eosinophils (%) (Auto) 7.0 % (0.0-3.0) H Basophils (%) (Auto) 1.5 % (0.0-2.0) Sodium Level 137 MMOL/L (136-145) Potassium Level 3.7 MMOL/L (3.5-5.1) Chloride Level 100 MMOL/L (98-107) Carbon Dioxide Level 28 MMOL/L (21-32) Anion Gap 9 mmol/L (5-15) Blood Urea Nitrogen 21 mg/dL (7-18) H Creatinine 0.8 MG/DL (0.55-1.30) Estimat Glomerular Filtration Rate mL/min (>60) Glucose Level 94 MG/DL (74-106) Calcium Level 10.0 MG/DL (8.5-10.1) Current Medications Medications (Trade) Dose Ordered Sig/Charly Route PRN Reason Start Time Stop Time Status Last Admin Dose Admin Acetaminophen/ Hydrocodone Bitart ([place] 5/325) 1 tab Q4H PRN ORAL Moderate Pain (Pain Scale 4-6) 02/03/19 19:15 02/10/19 19:14 02/03/19 19:09 Al Hydroxide/Mg Hydroxide (Mylanta) 30 ml Q6H PRN ORAL stomach upset 01/30/19 14:30 03/01/19 14:29 02/02/19 22:41 Albuterol/ Ipratropium (Albuterol/ Ipratropium) 3 ml Q4H PRN HHN Shortness of Breath 02/01/19 14:45 02/06/19 14:44 02/03/19 15:51 Alprazolam (Xanax) 0.5 mg Q6H PRN ORAL For Anxiety 02/02/19 12:15 02/09/19 12:14 02/03/19 17:49 Aspirin (Ecotrin) 81 mg DAILY ORAL 01/22/19 09:00 02/18/19 08:59 02/03/19 09:48 Bisacodyl (Dulcolax) 10 mg BIDPRN PRN RECTAL Constipation 01/23/19 10:00 02/22/19 09:59 01/31/19 15:15 Dextrose (Dextrose 50%) 25 ml Q30M PRN IV Hypoglycemia 01/21/19 19:45 02/16/19 17:32 Dextrose (Dextrose 50%) 50 ml Q30M PRN IV Hypoglycemia 01/21/19 19:45 02/16/19 17:32 Docusate Sodium (Colace) 100 mg TWICE A DAY ORAL 01/23/19 10:00 02/22/19 09:59 02/03/19 17:49 Furosemide (Lasix) 40 mg DAILY ORAL 01/22/19 09:00 02/21/19 08:59 02/03/19 09:48 Heparin Sodium (Porcine) (Heparin 5000 units/ml) 5,000 units EVERY 12 HOURS SUBQ 01/21/19 21:00 02/16/19 20:59 02/03/19 20:52 Ibuprofen (Motrin) 600 mg Q6H PRN ORAL For Pain 01/31/19 11:30 03/02/19 11:29 02/03/19 10:15 Lidocaine (Xylocaine 1% MPF 5ml) 10 ml Q4H PRN HHN cough 01/21/19 19:13 02/18/19 19:12 Mineral Oil (Fleet's Mineral Oil Enema) 133 ml DAILYPRN PRN RECTAL Constipation 01/24/19 09:30 02/23/19 09:29 01/27/19 13:38 Nitroglycerin (Ntg) 0.4 mg Q5M X 3 DOSES PRN SL Prn Chest Pain 01/21/19 19:15 02/16/19 17:33 Ondansetron HCl (Zofran) 4 mg Q6H PRN IVP Nausea & Vomiting 01/21/19 19:13 02/16/19 19:12 01/29/19 22:13 Polyethylene Glycol (Miralax) 17 gm BEDTIME ORAL 01/24/19 21:00 02/23/19 20:59 02/02/19 21:15 Polyethylene Glycol (Miralax) 17 gm DAILYPRN PRN ORAL Constipation 01/31/19 11:30 03/02/19 11:29 01/31/19 11:57 Potassium Chloride (K-Dur) 40 meq DAILY ORAL 01/25/19 11:00 02/24/19 10:59 02/01/19 08:57 Promethazine HCl/ Codeine (Phenergan with Codeine) 5 ml Q6H PRN ORAL cough 01/21/19 19:14 02/16/19 19:13 01/31/19 16:35 Quetiapine Fumarate (SEROquel) 25 mg Q12HR ORAL 01/21/19 21:00 02/17/19 20:59 02/03/19 20:52 Sucralfate (Carafate) 1 gm TID ORAL 01/28/19 01:15 02/27/19 01:14 02/02/19 18:19 Theophylline (Jimmy-Dur) 100 mg EVERY 12 HOURS ORAL 01/21/19 21:00 02/16/19 20:59 02/03/19 20:52 Marcelo Hooper MD Feb 04, 2019 08:30
[2019-02-04] MEDS: Albuterol/Ipratropium 3ml neb HHN PRN ×3 (08:50→23:32)
--- NOTE | 2019-02-04 08:53 | General Progress Note ---
Assessment/Plan Problem List: (1) Anemia ICD Codes: D64.9 - Anemia, unspecified SNOMED: 317309728 (2) Protein-calorie malnutrition, severe ICD Codes: E43 - Unspecified severe protein-calorie malnutrition SNOMED: 396132158, 000485386, 529595194 (3) Constipation ICD Codes: K59.00 - Constipation, unspecified SNOMED: 11577623 (4) Hypertension ICD Codes: I10 - Essential (primary) hypertension SNOMED: 09681406 (5) Cervical radiculopathy ICD Codes: M54.12 - Radiculopathy, cervical region SNOMED: 55545740 (6) COPD exacerbation ICD Codes: J44.1 - Chronic obstructive pulmonary disease with (acute) exacerbation SNOMED: 921544742, 857504241, 137451468 (7) CHF exacerbation ICD Codes: I50.9 - Heart failure, unspecified SNOMED: 30194038, 198473335, 890503945 Assessment/Plan hep C viral load neg bowel regimen given neg stool ob hold in patient GI procedure fu labs Subjective ROS Limited/Unobtainable: Yes Allergies: Coded Allergies: PENICILLINS (Verified Allergy, Unknown, SWELLING EVERYWHERE, EVEN EYES PER PATIENT, 11/24/11) Objective Last 24 Hour Vital Signs Date Time Temp Pulse Resp B/P (MAP) Pulse Ox O2 Delivery O2 Flow Rate FiO2 02/04/19 08:00 97.7 84 17 99/54 (69) 99 02/04/19 04:00 97.8 84 17 95/57 (70) 99 02/04/19 00:00 97.2 82 17 91/53 (66) 100 02/03/19 22:06 98 2.0 28 02/03/19 22:06 Nasal Cannula 2.0 28 02/03/19 22:06 82 19 Nasal Cannula 2.0 28 02/03/19 21:00 Nasal Cannula 2.0 Nasal Cannula 2.0 02/03/19 20:00 97.5 86 20 112/61 (78) 100 02/03/19 19:39 99.2 02/03/19 19:00 Nasal Cannula 2.0 28 02/03/19 19:00 98 2.0 28 02/03/19 19:00 82 19 Nasal Cannula 2.0 28 02/03/19 16:00 99.2 92 16 108/62 (77) 98 02/03/19 15:51 84 20 100 Nasal Cannula 2.0 28 02/03/19 12:00 97.8 93 18 105/64 (78) 100 02/03/19 11:10 82 20 99 Nasal Cannula 2.0 02/03/19 10:45 99.1 02/03/19 10:40 87 20 100 Nasal Cannula 2.0 02/03/19 09:00 Nasal Cannula 2.0 Nasal Cannula 2.0 Intake and Output 02/03/19 02/04/19 19:00 07:00 Intake Total 360 ml 240 ml Output Total 520 ml Balance 360 ml -280 ml Intake Oral 360 ml 240 ml Output Urine Total 520 ml # Bowel Movements 1 Laboratory Tests 02/04/19 05:00: White Blood Count 5.5, Red Blood Count 3.39L, Hemoglobin 9.2L, Hematocrit 29.6L , Mean Corpuscular Volume 87, Mean Corpuscular Hemoglobin 27.2, Mean Corpuscular Hemoglobin Concent 31.2L, Red Cell Distribution Width 17.5H, Platelet Count 272, Mean Platelet Volume 5.6L, Neutrophils (%) (Auto) 67.5, Lymphocytes (%) (Auto) 18.8L, Monocytes (%) (Auto) 5.2, Eosinophils (%) (Auto) 7.0H, Basophils (%) (Auto) 1.5, Sodium Level 137, Potassium Level 3.7, Chloride Level 100, Carbon Dioxide Level 28, Anion Gap 9, Blood Urea Nitrogen 21H, Creatinine 0.8, Estimat Glomerular Filtration Rate , Glucose Level 94, Calcium Level 10.0 Height (Feet): 5 Height (Inches): 6.00 Weight (Pounds): 110 General Appearance: no apparent distress EENT: normal ENT inspection Neck: supple Cardiovascular: normal rate Respiratory/Chest: decreased breath sounds Abdomen: normal bowel sounds, non tender, soft Extremities: non-tender Adrian Mustafa MD Feb 04, 2019 08:53
--- NOTE | 2019-02-04 08:56 | NUR ---
NURSE NOTES: Full bed and linen change complete with partial bed bath. Skin assessed. Noted excoriation on right inner buttock, moisture associated. Tried cream and optifoam placed, patient repositioned for comfort and skin prophylaxis. Will continue to monitor.
[2019-02-04] MEDS: Theophylline ER 100mg ORAL SCH ×2 (09:21→20:11)
[2019-02-04] MEDS: Sucralfate 1gm tab ORAL SCH ×3 (09:21→17:35)
[2019-02-04] MEDS: Furosemide 40mg tab ORAL SCH (09:21)
[2019-02-04] MEDS: Aspirin EC 81mg tab ORAL SCH (09:21)
[2019-02-04] MEDS: Docusate 100mg cap ORAL SCH ×2 (09:21→17:35)
[2019-02-04] MEDS: Heparin 5000 units/ml inj SUBQ SCH ×2 (09:22→20:14)
[2019-02-04 12:00] VITALS: BP 109/61
--- NOTE | 2019-02-04 13:08 | Pulmonology Progress Note ---
Assessment/Plan Problems: (1) Acute respiratory failure (2) COPD exacerbation (3) Pulmonary hypertension (4) Pulmonary fibrosis (5) Elevated troponin (6) Protein-calorie malnutrition, severe (7) Hypertension Assessment/Plan c/o joint pain all reviewed still constipated titrate fio2 to sat of 92 monitor BP eating well continue with PT, OT feeling better awaiting dc planning Subjective ROS Limited/Unobtainable: No Constitutional: Reports: no symptoms HEENT: Repors: no symptoms Respiratory: Reports: no symptoms Allergies: Coded Allergies: PENICILLINS (Verified Allergy, Unknown, SWELLING EVERYWHERE, EVEN EYES PER PATIENT, 11/24/11) Objective Last 24 Hour Vital Signs Date Time Temp Pulse Resp B/P (MAP) Pulse Ox O2 Delivery O2 Flow Rate FiO2 02/04/19 12:00 98.0 86 18 109/61 (77) 99 02/04/19 10:58 97.7 02/04/19 09:00 Nasal Cannula 2.0 Nasal Cannula 2.0 02/04/19 08:58 77 20 99 Nasal Cannula 2.0 28 02/04/19 08:50 75 18 Nasal Cannula 2.0 28 02/04/19 08:50 75 20 100 Nasal Cannula 2.0 28 02/04/19 08:50 98 2.0 28 02/04/19 08:50 Nasal Cannula 2.0 28 02/04/19 08:00 97.7 84 17 99/54 (69) 99 02/04/19 04:00 97.8 84 17 95/57 (70) 99 02/04/19 00:00 97.2 82 17 91/53 (66) 100 02/03/19 22:06 98 2.0 28 02/03/19 22:06 Nasal Cannula 2.0 28 02/03/19 22:06 82 19 Nasal Cannula 2.0 28 02/03/19 21:00 Nasal Cannula 2.0 Nasal Cannula 2.0 02/03/19 20:00 97.5 86 20 112/61 (78) 100 02/03/19 19:39 99.2 02/03/19 19:00 Nasal Cannula 2.0 28 02/03/19 19:00 98 2.0 28 02/03/19 19:00 82 19 Nasal Cannula 2.0 28 02/03/19 16:00 99.2 92 16 108/62 (77) 98 02/03/19 15:51 84 20 100 Nasal Cannula 2.0 28 Intake and Output 02/03/19 02/04/19 18:59 06:59 Intake Total 360 ml 240 ml Output Total 520 ml Balance 360 ml -280 ml Intake Oral 360 ml 240 ml Output Urine Total 520 ml # Bowel Movements 1 Objective General Appearance: cachetic HEENT: normocephalic, atraumatic Respiratory/Chest: chest wall non-tender, normal breath sounds Cardiovascular: normal peripheral pulses, regular rhythm Abdomen: normal bowel sounds, soft, non tender Laboratory Tests 02/04/19 05:00: White Blood Count 5.5, Red Blood Count 3.39L, Hemoglobin 9.2L, Hematocrit 29.6L , Mean Corpuscular Volume 87, Mean Corpuscular Hemoglobin 27.2, Mean Corpuscular Hemoglobin Concent 31.2L, Red Cell Distribution Width 17.5H, Platelet Count 272, Mean Platelet Volume 5.6L, Neutrophils (%) (Auto) 67.5, Lymphocytes (%) (Auto) 18.8L, Monocytes (%) (Auto) 5.2, Eosinophils (%) (Auto) 7.0H, Basophils (%) (Auto) 1.5, Sodium Level 137, Potassium Level 3.7, Chloride Level 100, Carbon Dioxide Level 28, Anion Gap 9, Blood Urea Nitrogen 21H, Creatinine 0.8, Estimat Glomerular Filtration Rate , Glucose Level 94, Calcium Level 10.0 Current Medications Medications (Trade) Dose Ordered Sig/Charly Route PRN Reason Start Time Stop Time Status Last Admin Dose Admin Acetaminophen/ Hydrocodone Bitart ([place] 5/325) 1 tab Q4H PRN ORAL Moderate Pain (Pain Scale 4-6) 02/03/19 19:15 02/10/19 19:14 02/03/19 19:09 Al Hydroxide/Mg Hydroxide (Mylanta) 30 ml Q6H PRN ORAL stomach upset 01/30/19 14:30 03/01/19 14:29 02/02/19 22:41 Albuterol/ Ipratropium (Albuterol/ Ipratropium) 3 ml Q4H PRN HHN Shortness of Breath 02/01/19 14:45 02/06/19 14:44 02/04/19 08:50 Alprazolam (Xanax) 0.5 mg Q6H PRN ORAL For Anxiety 02/02/19 12:15 02/09/19 12:14 02/03/19 17:49 Aspirin (Ecotrin) 81 mg DAILY ORAL 01/22/19 09:00 02/18/19 08:59 02/04/19 09:21 Bisacodyl (Dulcolax) 10 mg BIDPRN PRN RECTAL Constipation 01/23/19 10:00 02/22/19 09:59 01/31/19 15:15 Dextrose (Dextrose 50%) 25 ml Q30M PRN IV Hypoglycemia 01/21/19 19:45 02/16/19 17:32 Dextrose (Dextrose 50%) 50 ml Q30M PRN IV Hypoglycemia 01/21/19 19:45 02/16/19 17:32 Docusate Sodium (Colace) 100 mg TWICE A DAY ORAL 01/23/19 10:00 02/22/19 09:59 02/04/19 09:21 Furosemide (Lasix) 40 mg DAILY ORAL 01/22/19 09:00 02/21/19 08:59 02/04/19 09:21 Heparin Sodium (Porcine) (Heparin 5000 units/ml) 5,000 units EVERY 12 HOURS SUBQ 01/21/19 21:00 02/16/19 20:59 02/04/19 09:22 Ibuprofen (Motrin) 600 mg Q6H PRN ORAL For Pain 01/31/19 11:30 03/02/19 11:29 02/04/19 10:28 Lidocaine (Xylocaine 1% MPF 5ml) 10 ml Q4H PRN HHN cough 01/21/19 19:13 02/18/19 19:12 Mineral Oil (Fleet's Mineral Oil Enema) 133 ml DAILYPRN PRN RECTAL Constipation 01/24/19 09:30 02/23/19 09:29 01/27/19 13:38 Nitroglycerin (Ntg) 0.4 mg Q5M X 3 DOSES PRN SL Prn Chest Pain 01/21/19 19:15 02/16/19 17:33 Ondansetron HCl (Zofran) 4 mg Q6H PRN IVP Nausea & Vomiting 01/21/19 19:13 02/16/19 19:12 01/29/19 22:13 Polyethylene Glycol (Miralax) 17 gm BEDTIME ORAL 3/19/19 21:00 02/23/19 20:59 02/02/19 21:15 Polyethylene Glycol (Miralax) 17 gm DAILYPRN PRN ORAL Constipation 01/31/19 11:30 03/02/19 11:29 01/31/19 11:57 Potassium Chloride (K-Dur) 40 meq DAILY ORAL 01/25/19 11:00 02/24/19 10:59 02/01/19 08:57 Promethazine HCl/ Codeine (Phenergan with Codeine) 5 ml Q6H PRN ORAL cough 01/21/19 19:14 02/16/19 19:13 01/31/19 16:35 Quetiapine Fumarate (SEROquel) 25 mg Q12HR ORAL 01/21/19 21:00 02/17/19 20:59 02/04/19 09:21 Sucralfate (Carafate) 1 gm TID ORAL 01/28/19 01:15 02/27/19 01:14 02/04/19 09:21 Theophylline (Jimmy-Dur) 100 mg EVERY 12 HOURS ORAL 01/21/19 21:00 02/16/19 20:59 02/04/19 09:21 Jersey Chadwick MD Feb 04, 2019 13:08
--- NOTE | 2019-02-04 14:37 | NUR ---
CASE MANAGEMENT: REVIEW SI: CHF . COPD EXACERBATION . PULMONARY FIBROSIS . HEP C+ T 98.0 HR 86 RR 18 BP 91/53 SAT 99% NC/2L H/H 9.2/29.6 IS: LASIX PO QD THEOPHYLLINE PO Q12HR ALBUTEROL HHN Q4HR PRN MED/SURG STATUS DCP: PATIENT IS FROM [facility]
[2019-02-04 16:00] VITALS: BP 104/51
--- NOTE | 2019-02-04 16:00 | Cardiac Electrophysiology PN ---
Assessment/Plan Assessment/Plan 1. Type 2 NSTEMI. No CP or SOB. EF normal . ECG incomplete LBBB, LVH. On aspirin and off Beta ehsan for asthma 2. CHF due to diastolic dysfunction with BNP >1500. On Lasix 40 mg po daily 3. Hypertension. On Lasix 4. COPD exacerbation and severe pulmonary HTN 5. Anemia. 6. UTI 8. Osteoarthritis. 9. Cervical radiculopathy. 10. Constipation, resolved DW RN Awaiting placement Subjective Subjective Comfortable in NAD awaiting placement. Objective Last 24 Hour Vital Signs Date Time Temp Pulse Resp B/P (MAP) Pulse Ox O2 Delivery O2 Flow Rate FiO2 02/04/19 14:56 68 20 100 Nasal Cannula 2.0 28 02/04/19 14:49 66 20 98 Nasal Cannula 2.0 28 02/04/19 12:00 98.0 86 18 109/61 (77) 99 02/04/19 10:58 97.7 02/04/19 09:00 Nasal Cannula 2.0 Nasal Cannula 2.0 02/04/19 08:58 77 20 99 Nasal Cannula 2.0 28 02/04/19 08:50 75 18 Nasal Cannula 2.0 28 02/04/19 08:50 75 20 100 Nasal Cannula 2.0 28 02/04/19 08:50 98 2.0 28 02/04/19 08:50 Nasal Cannula 2.0 28 02/04/19 08:00 97.7 84 17 99/54 (69) 99 02/04/19 04:00 97.8 84 17 95/57 (70) 99 02/04/19 00:00 97.2 82 17 91/53 (66) 100 02/03/19 22:06 98 2.0 28 02/03/19 22:06 Nasal Cannula 2.0 28 02/03/19 22:06 82 19 Nasal Cannula 2.0 28 02/03/19 21:00 Nasal Cannula 2.0 Nasal Cannula 2.0 02/03/19 20:00 97.5 86 20 112/61 (78) 100 02/03/19 19:39 99.2 02/03/19 19:00 Nasal Cannula 2.0 28 02/03/19 19:00 98 2.0 28 02/03/19 19:00 82 19 Nasal Cannula 2.0 28 02/03/19 16:00 99.2 92 16 108/62 (77) 98 Intake and Output 02/03/19 02/04/19 18:59 06:59 Intake Total 360 ml 240 ml Output Total 520 ml Balance 360 ml -280 ml Intake Oral 360 ml 240 ml Output Urine Total 520 ml # Bowel Movements 1 Laboratory Tests Test 02/04/19 05:00 White Blood Count 5.5 K/UL (4.8-10.8) Red Blood Count 3.39 M/UL (4.20-5.40) L Hemoglobin 9.2 G/DL (12.0-16.0) L Hematocrit 29.6 % (37.0-47.0) L Mean Corpuscular Volume 87 FL (80-99) Mean Corpuscular Hemoglobin 27.2 PG (27.0-31.0) Mean Corpuscular Hemoglobin Concent 31.2 G/DL (32.0-36.0) L Red Cell Distribution Width 17.5 % (11.6-14.8) H Platelet Count 272 K/UL (150-450) Mean Platelet Volume 5.6 FL (6.5-10.1) L Neutrophils (%) (Auto) 67.5 % (45.0-75.0) Lymphocytes (%) (Auto) 18.8 % (20.0-45.0) L Monocytes (%) (Auto) 5.2 % (1.0-10.0) Eosinophils (%) (Auto) 7.0 % (0.0-3.0) H Basophils (%) (Auto) 1.5 % (0.0-2.0) Sodium Level 137 MMOL/L (136-145) Potassium Level 3.7 MMOL/L (3.5-5.1) Chloride Level 100 MMOL/L (98-107) Carbon Dioxide Level 28 MMOL/L (21-32) Anion Gap 9 mmol/L (5-15) Blood Urea Nitrogen 21 mg/dL (7-18) H Creatinine 0.8 MG/DL (0.55-1.30) Estimat Glomerular Filtration Rate mL/min (>60) Glucose Level 94 MG/DL (74-106) Calcium Level 10.0 MG/DL (8.5-10.1) Objective HEENT: No JVD Respiratory/Chest: Clear Cardiovascular/Chest: Normal S1, S2. normal rate, regular rhythm Abdomen: normal bowel sounds, non tender, Extremities: No edema Renzo Burgess MD Feb 04, 2019 16:00
--- NOTE | 2019-02-04 19:07 | NUR ---
HAND-OFF: Report given to Sylvie SAVAGE. Patient is in stable condition.
--- NOTE | 2019-02-04 19:30 | NUR ---
NURSE NOTES: Received report from HUSSEIN Pride. Patient in stable condition, alert and oriented. Bed in low position, locked, side rails up x2, call light within reach. Denies any pain. Saline lock in RFA intact. Sacral Optifoam dressing changed after applying Triad cream to area. Will continue to monitor.
[2019-02-04 20:00] VITALS: BP 125/56
[2019-02-04] MEDS: Miralax 17gm pkt ORAL SCH (21:00)
[2019-02-04] MEDS: ALPRAZolam 0.5mg tab ORAL PRN (23:34)
--- NOTE | 2019-02-04 23:42 | NUR ---
NURSE NOTES: Patient complains of difficulty taking a breath. O2Sat 100% on 2LNC. HR 92, R 24. RT called for treatment. Patient denies pain. Given Xanax po, repositioned in bed. States feels a bit better. Will continue to monitor.
[2019-02-05] VITALS: BP 109/54
[2019-02-05 04:00] VITALS: BP 99/56
--- NOTE | 2019-02-05 05:39 | General Progress Note ---
Assessment/Plan Problem List: (1) UTI (urinary tract infection) ICD Codes: N39.0 - Urinary tract infection, site not specified SNOMED: 93388393 (2) Anemia ICD Codes: D64.9 - Anemia, unspecified SNOMED: 719828101 (3) Arthritis ICD Codes: M19.90 - Unspecified osteoarthritis, unspecified site SNOMED: 1491288 (4) Hypertension ICD Codes: I10 - Essential (primary) hypertension SNOMED: 25448407 (5) COPD exacerbation ICD Codes: J44.1 - Chronic obstructive pulmonary disease with (acute) exacerbation SNOMED: 568767235, 540046620, 776635095 (6) CHF exacerbation ICD Codes: I50.9 - Heart failure, unspecified SNOMED: 28886954, 472739940, 719572334 (7) Cervical radiculopathy ICD Codes: M54.12 - Radiculopathy, cervical region SNOMED: 72011136 Status: stable, progressing Assessment/Plan o2 pulm tx abt pain control pt diet sx eval cbc bmp am dc to snf if clear Subjective Constitutional: Reports: weakness Allergies: Coded Allergies: PENICILLINS (Verified Allergy, Unknown, SWELLING EVERYWHERE, EVEN EYES PER PATIENT, 11/24/11) All Systems: reviewed and negative except above Subjective o2nc sleepy in bed Objective Last 24 Hour Vital Signs Date Time Temp Pulse Resp B/P (MAP) Pulse Ox O2 Delivery O2 Flow Rate FiO2 02/05/19 00:00 97.5 86 16 109/54 (72) 99 02/04/19 23:40 94 20 100 Nasal Cannula 2.0 28 02/04/19 23:32 94 20 99 Nasal Cannula 2.0 28 02/04/19 21:00 Nasal Cannula 2.0 Nasal Cannula 2.0 02/04/19 20:00 99.7 99 20 125/56 (79) 99 02/04/19 19:49 99 2.0 28 02/04/19 19:49 81 18 Nasal Cannula 2.0 28 02/04/19 19:49 Nasal Cannula 2.0 28 02/04/19 16:00 98.1 99 18 104/51 (68) 99 02/04/19 14:56 68 20 100 Nasal Cannula 2.0 28 02/04/19 14:49 66 20 98 Nasal Cannula 2.0 28 02/04/19 12:00 98.0 86 18 109/61 (77) 99 02/04/19 10:58 97.7 02/04/19 09:00 Nasal Cannula 2.0 Nasal Cannula 2.0 02/04/19 08:58 77 20 99 Nasal Cannula 2.0 28 02/04/19 08:50 75 18 Nasal Cannula 2.0 28 02/04/19 08:50 75 20 100 Nasal Cannula 2.0 28 02/04/19 08:50 98 2.0 28 02/04/19 08:50 Nasal Cannula 2.0 28 02/04/19 08:00 97.7 84 17 99/54 (69) 99 Intake and Output 02/04/19 02/05/19 19:00 07:00 Intake Total 700 ml Balance 700 ml Intake Oral 700 ml # Voids 3 # Bowel Movements 1 Height (Feet): 5 Height (Inches): 6.00 Weight (Pounds): 110 General Appearance: lethargic EENT: normal ENT inspection Neck: normal alignment Cardiovascular: normal peripheral pulses, normal rate, regular rhythm Respiratory/Chest: chest wall non-tender, decreased breath sounds Abdomen: normal bowel sounds, non tender, soft Extremities: normal inspection Edema: no edema noted Arm (L), no edema noted Arm (R), no edema noted Leg (L), no edema noted Leg (R), no edema noted Pedal (L), no edema noted Pedal (R), no edema noted Generalized Neurologic: motor weakness Skin: normal pigmentation, warm/dry Rio Lema DO Feb 05, 2019 05:39
[2019-02-05] MEDS: HYDROcodone/Acetamin 5/325 tab ORAL PRN ×2 (05:53→18:44)
--- NOTE | 2019-02-05 07:30 | NUR ---
HAND-OFF: Report given to HUSSEIN Bah. Patient in stable condition.
[2019-02-05 08:00] VITALS: BP 116/65
--- NOTE | 2019-02-05 08:23 | General Progress Note ---
Assessment/Plan Problem List: (1) Anemia ICD Codes: D64.9 - Anemia, unspecified SNOMED: 345861943 (2) Protein-calorie malnutrition, severe ICD Codes: E43 - Unspecified severe protein-calorie malnutrition SNOMED: 459146915, 286307197, 216300530 (3) Constipation ICD Codes: K59.00 - Constipation, unspecified SNOMED: 44540247 (4) Hypertension ICD Codes: I10 - Essential (primary) hypertension SNOMED: 95566317 (5) Cervical radiculopathy ICD Codes: M54.12 - Radiculopathy, cervical region SNOMED: 84477793 (6) COPD exacerbation ICD Codes: J44.1 - Chronic obstructive pulmonary disease with (acute) exacerbation SNOMED: 131651423, 320187005, 118515820 (7) CHF exacerbation ICD Codes: I50.9 - Heart failure, unspecified SNOMED: 12186200, 717441395, 390973524 Assessment/Plan hep C viral load neg bowel regimen given neg stool ob hold in patient GI procedure fu labs Subjective ROS Limited/Unobtainable: No Allergies: Coded Allergies: PENICILLINS (Verified Allergy, Unknown, SWELLING EVERYWHERE, EVEN EYES PER PATIENT, 11/24/11) Objective Last 24 Hour Vital Signs Date Time Temp Pulse Resp B/P (MAP) Pulse Ox O2 Delivery O2 Flow Rate FiO2 02/05/19 08:00 98.2 93 18 116/65 (82) 95 02/05/19 04:00 97.9 92 18 99/56 (70) 100 02/05/19 00:00 97.5 86 16 109/54 (72) 99 02/04/19 23:40 94 20 100 Nasal Cannula 2.0 28 02/04/19 23:32 94 20 99 Nasal Cannula 2.0 28 02/04/19 21:00 Nasal Cannula 2.0 Nasal Cannula 2.0 02/04/19 20:00 99.7 99 20 125/56 (79) 99 02/04/19 19:49 99 2.0 28 02/04/19 19:49 81 18 Nasal Cannula 2.0 28 02/04/19 19:49 Nasal Cannula 2.0 28 02/04/19 16:00 98.1 99 18 104/51 (68) 99 02/04/19 14:56 68 20 100 Nasal Cannula 2.0 28 02/04/19 14:49 66 20 98 Nasal Cannula 2.0 28 02/04/19 12:00 98.0 86 18 109/61 (77) 99 02/04/19 10:58 97.7 02/04/19 09:00 Nasal Cannula 2.0 Nasal Cannula 2.0 02/04/19 08:58 77 20 99 Nasal Cannula 2.0 28 02/04/19 08:50 75 18 Nasal Cannula 2.0 28 02/04/19 08:50 75 20 100 Nasal Cannula 2.0 28 02/04/19 08:50 98 2.0 28 02/04/19 08:50 Nasal Cannula 2.0 28 Intake and Output 02/04/19 02/05/19 19:00 07:00 Intake Total 700 ml Output Total 700 ml Balance 700 ml -700 ml Intake Oral 700 ml Output Urine Total 700 ml # Voids 3 # Bowel Movements 1 Height (Feet): 5 Height (Inches): 6.00 Weight (Pounds): 110 General Appearance: no apparent distress EENT: normal ENT inspection Neck: supple Cardiovascular: normal rate Respiratory/Chest: decreased breath sounds Abdomen: normal bowel sounds, non tender, soft Extremities: non-tender Adrian Mustafa MD Feb 05, 2019 08:23
[2019-02-05] MEDS: Sucralfate 1gm tab ORAL SCH ×3 (09:00→18:00)
[2019-02-05] MEDS: Furosemide 40mg tab ORAL SCH (09:58)
[2019-02-05] MEDS: Docusate 100mg cap ORAL SCH ×2 (09:58→18:44)
[2019-02-05] MEDS: Theophylline ER 100mg ORAL SCH ×2 (09:58→22:24)
[2019-02-05] MEDS: Aspirin EC 81mg tab ORAL SCH (09:58)
[2019-02-05] MEDS: Heparin 5000 units/ml inj SUBQ SCH ×2 (10:02→22:26)
[2019-02-05 12:00] VITALS: BP 140/56
[2019-02-05 16:00] VITALS: BP 117/71
--- NOTE | 2019-02-05 19:20 | NUR ---
HAND-OFF: Report given to HUSSEIN De Dios.
--- NOTE | 2019-02-05 19:23 | NUR ---
CASE MANAGEMENT: REVIEW 02/05/2019 SI:CHF. COPD. T 97.1 HR 66 RR 16 B/P 140/56 SATS 95% ON 2L/NC NO LABS TODAY IS: ULICES DUR PO Q12H ASA PO QD LASIX PO QD K DUR PO QD MED/SURG STATUS
--- NOTE | 2019-02-05 19:31 | NUR ---
NURSE NOTES: Received report from Dwaine Bah. Patient is aaox4, talkative. No pain noted. No shortness of breath. Posterior dressing c/d/i. Bed low, call light within reach.
[2019-02-05 20:00] VITALS: BP 114/65
[2019-02-05] MEDS: Miralax 17gm pkt ORAL SCH (22:24)
[2019-02-06] VITALS (7 sets, daily range): BP systolic 94–125; BP diastolic 59–68
[2019-02-06 06:32] LABS: BASOPHILS % (AUTO) 1.6 % (0.0-2.0); EOSINOPHILS % (AUTO) 8.2 % (0.0-3.0); HEMATOCRIT 30.2 % (37.0-47.0); HEMOGLOBIN 9.4 G/DL (12.0-16.0); LYMPHOCYTES % (AUTO) 23.3 % (20.0-45.0); MEAN CORPUSCULAR VOLUME 86 FL (80-99); MONOCYTES % (AUTO) 5.6 % (1.0-10.0); NEUTROPHILS % (AUTO) 61.3 % (45.0-75.0); PLATELET COUNT 270 K/UL (150-450); RED BLOOD COUNT 3.51 M/UL (4.20-5.40); WHITE BLOOD COUNT 4.9 K/UL (4.8-10.8)
[2019-02-06 06:51] LABS: ANION GAP 8 mmol/L (5-15); BLOOD UREA NITROGEN 17 mg/dL (7-18); CALCIUM 10.3 MG/DL (8.5-10.1); CARBON DIOXIDE 28 MMOL/L (21-32); CHLORIDE 101 MMOL/L (98-107); CREATININE 0.8 MG/DL (0.55-1.30); POTASSIUM 3.7 MMOL/L (3.5-5.1); SODIUM 137 MMOL/L (136-145)
--- NOTE | 2019-02-06 07:56 | NUR ---
HAND-OFF: Report given to HUSSEIN Pride. Patient stable.
--- NOTE | 2019-02-06 07:56 | NUR ---
NURSE NOTES: Received report from Fela SAVAGE. Patient is awake alert and oriented x4, reporting shortness of breath. Respiratory called and is at the bedside now administering PRN breathing treatment. Patient reporting no pain. On 3L NC. Repositioned for comfort and HOB elevated to improve breathing. Side rails upx3, bed low and locked, call light in reach. Will continue to monitor.
[2019-02-06] MEDS: Sucralfate 1gm tab ORAL SCH ×3 (08:33→18:00)
[2019-02-06] MEDS: Furosemide 40mg tab ORAL SCH (08:33)
[2019-02-06] MEDS: Theophylline ER 100mg ORAL SCH ×2 (08:33→21:25)
[2019-02-06] MEDS: Docusate 100mg cap ORAL SCH ×2 (08:33→18:07)
[2019-02-06] MEDS: Aspirin EC 81mg tab ORAL SCH (08:33)
[2019-02-06] MEDS: Heparin 5000 units/ml inj SUBQ SCH ×2 (08:34→21:26)
--- NOTE | 2019-02-06 09:06 | NUR ---
NURSE NOTES: Patient cleaned, given partial bed bath, changed, repositioned, skin assessed. Noted moisture associated redness on buttock. Applied Triad cream and optifoam dressing to sacrum and buttock.
--- NOTE | 2019-02-06 09:32 | NUR ---
CASE MANAGEMENT:REVIEW 02/06/19 SI: COPD EXACERBATION 98.0 92 20 108/60 99% ON 2L/NC H/H-9.4/30.2 IS: NORCO PO Q4HRS PRN XANAX PO Q6HRS PRN MOTRIN PO Q6HR CARAFATE PO TID K-DUR PO QD LASIX PO QD HEPARIN SQ Q12 ULICES-DUR PO Q12 : MED/SURG STATUS 3 [facility]: PATIENT IS FROM [facility] BUT BED WAS GIVEN AWAY [facility] HAS BEEN SEEKING NEW PLACEMENT FOR OVER A WEEK NOW.
--- NOTE | 2019-02-06 09:45 | NUR ---
DISCHARGE PLANNING SPOKE WITH [facility] NURSE COLETTE AND ASKED HIM TO CONSIDER DOING A LETTER OF AGREEMENT WITH ANY SNF THAT WILL ACCEPT THIS PATIENT. COLETTE SAID HE WOULD CALL THIS CRITICAL CARE NURSE BACK LATER
[2019-02-06] MEDS: HYDROcodone/Acetamin 5/325 tab ORAL PRN (10:03)
--- NOTE | 2019-02-06 10:34 | GI Progress Note ---
Assessment/Plan Problems: (1) Anemia ICD Codes: D64.9 - Anemia, unspecified SNOMED: 746601377 (2) Protein-calorie malnutrition, severe ICD Codes: E43 - Unspecified severe protein-calorie malnutrition SNOMED: 630409373, 787995058, 631964233 (3) Constipation ICD Codes: K59.00 - Constipation, unspecified SNOMED: 92520270 Status: stable Status Narrative Discussed with Dr. Mustafa. Assessment/Plan okay for DC per GI standpoint hep C viral load neg bowel regimen given neg stool ob hold in patient GI procedure fu labs The patient was seen and examined at bedside and all new and available data was reviewed in the patients chart. I agree with the above findings, impression and plan. (Patient seen earlier today. Signature stamp does not reflect patient encounter time.). - Adrian Mustafa MD Subjective Subjective Patient denies any abdominal pain It is not a bowel movement yesterday Tolerating diet Objective Last 24 Hour Vital Signs Date Time Temp Pulse Resp B/P (MAP) Pulse Ox O2 Delivery O2 Flow Rate FiO2 02/06/19 08:00 98.8 89 20 105/60 (75) 98 02/06/19 07:55 84 20 Nasal Cannula 2.0 28 02/06/19 07:55 Nasal Cannula 2.0 28 02/06/19 07:55 99 2.0 28 02/06/19 04:00 98.0 92 20 108/60 (76) 99 02/06/19 00:00 98.2 90 18 125/68 (87) 99 02/05/19 21:13 99 2.0 28 02/05/19 21:13 Nasal Cannula 2.0 28 02/05/19 21:13 87 20 Nasal Cannula 2.0 28 02/05/19 21:00 Nasal Cannula 2.0 Nasal Cannula 2.0 02/05/19 20:00 98.5 89 16 114/65 (81) 98 02/05/19 19:14 97.7 02/05/19 16:00 97.7 91 18 117/71 (86) 96 02/05/19 12:00 97.1 66 19 140/56 (84) 95 Intake and Output 02/05/19 02/06/19 19:00 07:00 Intake Total 720 ml Balance 720 ml Intake Oral 720 ml # Voids 2 Laboratory Tests Test 4/1/19 05:10 White Blood Count 4.9 K/UL (4.8-10.8) Red Blood Count 3.51 M/UL (4.20-5.40) L Hemoglobin 9.4 G/DL (12.0-16.0) L Hematocrit 30.2 % (37.0-47.0) L Mean Corpuscular Volume 86 FL (80-99) Mean Corpuscular Hemoglobin 26.9 PG (27.0-31.0) L Mean Corpuscular Hemoglobin Concent 31.2 G/DL (32.0-36.0) L Red Cell Distribution Width 17.0 % (11.6-14.8) H Platelet Count 270 K/UL (150-450) Mean Platelet Volume 6.2 FL (6.5-10.1) L Neutrophils (%) (Auto) 61.3 % (45.0-75.0) Lymphocytes (%) (Auto) 23.3 % (20.0-45.0) Monocytes (%) (Auto) 5.6 % (1.0-10.0) Eosinophils (%) (Auto) 8.2 % (0.0-3.0) H Basophils (%) (Auto) 1.6 % (0.0-2.0) Sodium Level 137 MMOL/L (136-145) Potassium Level 3.7 MMOL/L (3.5-5.1) Chloride Level 101 MMOL/L (98-107) Carbon Dioxide Level 28 MMOL/L (21-32) Anion Gap 8 mmol/L (5-15) Blood Urea Nitrogen 17 mg/dL (7-18) Creatinine 0.8 MG/DL (0.55-1.30) Estimat Glomerular Filtration Rate mL/min (>60) Glucose Level 91 MG/DL (74-106) Calcium Level 10.3 MG/DL (8.5-10.1) H Height (Feet): 5 Height (Inches): 6.00 Weight (Pounds): 110 General Appearance: WD/WN, no apparent distress, alert Cardiovascular: normal rate Respiratory/Chest: normal breath sounds, no respiratory distress Abdominal Exam: normal bowel sounds, non tender, soft Extremities: normal range of motion, non-tender Loy Hamilton [employer] Feb 06, 2019 10:34
--- NOTE | 2019-02-06 10:36 | NUR ---
ST NOTE: ST WEEKLY: PT PARTIALLY MET PO INTAKE GOALS. NURSING STAFF MET [employer]CAUT[employer] GOALS. WILL D/C PT.
[2019-02-06] MEDS: Albuterol/Ipratropium 3ml neb HHN PRN (11:47)
--- NOTE | 2019-02-06 11:47 | Pulmonology Progress Note ---
Assessment/Plan Problems: (1) Acute respiratory failure (2) COPD exacerbation (3) Pulmonary hypertension (4) Pulmonary fibrosis (5) Elevated troponin (6) Protein-calorie malnutrition, severe (7) Hypertension Assessment/Plan repeat cxr now respiratory treatment all reviewed still constipated titrate fio2 to sat of 92 monitor BP eating well continue with PT, OT feeling better awaiting dc planning Subjective ROS Limited/Unobtainable: No Interval Events: episode of dyspnea Allergies: Coded Allergies: PENICILLINS (Verified Allergy, Unknown, SWELLING EVERYWHERE, EVEN EYES PER PATIENT, 11/24/11) Objective Last 24 Hour Vital Signs Date Time Temp Pulse Resp B/P (MAP) Pulse Ox O2 Delivery O2 Flow Rate FiO2 02/06/19 10:33 98.8 02/06/19 09:00 Nasal Cannula 2.0 Nasal Cannula 2.0 02/06/19 08:00 98.8 89 20 105/60 (75) 98 02/06/19 07:55 84 20 Nasal Cannula 2.0 28 02/06/19 07:55 Nasal Cannula 2.0 28 02/06/19 07:55 99 2.0 28 02/06/19 04:00 98.0 92 20 108/60 (76) 99 02/06/19 00:00 98.2 90 18 125/68 (87) 99 02/05/19 21:13 99 2.0 28 02/05/19 21:13 Nasal Cannula 2.0 28 02/05/19 21:13 87 20 Nasal Cannula 2.0 28 02/05/19 21:00 Nasal Cannula 2.0 Nasal Cannula 2.0 02/05/19 20:00 98.5 89 16 114/65 (81) 98 02/05/19 16:00 97.7 91 18 117/71 (86) 96 02/05/19 12:00 97.1 66 19 140/56 (84) 95 Intake and Output 02/05/19 02/06/19 19:00 07:00 Intake Total 720 ml Balance 720 ml Intake Oral 720 ml # Voids 2 Objective General Appearance: cachetic HEENT: normocephalic, atraumatic Respiratory/Chest: chest wall non-tender, normal breath sounds Cardiovascular: normal peripheral pulses, regular rhythm Abdomen: normal bowel sounds, soft, non tender Laboratory Tests 02/06/19 05:10: White Blood Count 4.9, Red Blood Count 3.51L, Hemoglobin 9.4L, Hematocrit 30.2L , Mean Corpuscular Volume 86, Mean Corpuscular Hemoglobin 26.9L, Mean Corpuscular Hemoglobin Concent 31.2L, Red Cell Distribution Width 17.0H, Platelet Count 270, Mean Platelet Volume 6.2L, Neutrophils (%) (Auto) 61.3, Lymphocytes (%) (Auto) 23.3, Monocytes (%) (Auto) 5.6, Eosinophils (%) (Auto) 8.2H, Basophils (%) (Auto) 1.6, Sodium Level 137, Potassium Level 3.7, Chloride Level 101, Carbon Dioxide Level 28, Anion Gap 8, Blood Urea Nitrogen 17, Creatinine 0.8, Estimat Glomerular Filtration Rate , Glucose Level 91, Calcium Level 10.3H Current Medications Medications (Trade) Dose Ordered Sig/Charly Route PRN Reason Start Time Stop Time Status Last Admin Dose Admin Acetaminophen/ Hydrocodone Bitart ([place] 5/325) 1 tab Q4H PRN ORAL Moderate Pain (Pain Scale 4-6) 02/03/19 19:15 02/10/19 19:14 02/06/19 10:03 Al Hydroxide/Mg Hydroxide (Mylanta) 30 ml Q6H PRN ORAL stomach upset 01/30/19 14:30 03/01/19 14:29 02/02/19 22:41 Albuterol/ Ipratropium (Albuterol/ Ipratropium) 3 ml Q4H PRN HHN Shortness of Breath 02/01/19 14:45 02/06/19 14:44 02/04/19 23:32 Alprazolam (Xanax) 0.5 mg Q6H PRN ORAL For Anxiety 02/02/19 12:15 02/09/19 12:14 02/04/19 23:34 Aspirin (Ecotrin) 81 mg DAILY ORAL 01/22/19 09:00 02/18/19 08:59 02/06/19 08:33 Bisacodyl (Dulcolax) 10 mg BIDPRN PRN RECTAL Constipation 01/23/19 10:00 02/22/19 09:59 01/31/19 15:15 Dextrose (Dextrose 50%) 25 ml Q30M PRN IV Hypoglycemia 01/21/19 19:45 02/16/19 17:32 Dextrose (Dextrose 50%) 50 ml Q30M PRN IV Hypoglycemia 01/21/19 19:45 02/16/19 17:32 Docusate Sodium (Colace) 100 mg TWICE A DAY ORAL 01/23/19 10:00 02/22/19 09:59 02/06/19 08:33 Furosemide (Lasix) 40 mg DAILY ORAL 01/22/19 09:00 02/21/19 08:59 02/06/19 08:33 Heparin Sodium (Porcine) (Heparin 5000 units/ml) 5,000 units EVERY 12 HOURS SUBQ 01/21/19 21:00 02/16/19 20:59 02/06/19 08:34 Ibuprofen (Motrin) 600 mg Q6H PRN ORAL For Pain 01/31/19 11:30 03/02/19 11:29 02/04/19 10:28 Lidocaine (Xylocaine 1% MPF 5ml) 10 ml Q4H PRN HHN cough 01/21/19 19:13 02/18/19 19:12 Mineral Oil (Fleet's Mineral Oil Enema) 133 ml DAILYPRN PRN RECTAL Constipation 01/24/19 09:30 02/23/19 09:29 01/27/19 13:38 Nitroglycerin (Ntg) 0.4 mg Q5M X 3 DOSES PRN SL Prn Chest Pain 01/21/19 19:15 02/16/19 17:33 Ondansetron HCl (Zofran) 4 mg Q6H PRN IVP Nausea & Vomiting 01/21/19 19:13 02/16/19 19:12 01/29/19 22:13 Polyethylene Glycol (Miralax) 17 gm BEDTIME ORAL 01/24/19 21:00 02/23/19 20:59 02/02/19 21:15 Polyethylene Glycol (Miralax) 17 gm DAILYPRN PRN ORAL Constipation 01/31/19 11:30 03/02/19 11:29 01/31/19 11:57 Potassium Chloride (K-Dur) 40 meq DAILY ORAL 01/25/19 11:00 02/24/19 10:59 02/01/19 08:57 Promethazine HCl/ Codeine (Phenergan with Codeine) 5 ml Q6H PRN ORAL cough 01/21/19 19:14 02/16/19 19:13 01/31/19 16:35 Quetiapine Fumarate (SEROquel) 25 mg Q12HR ORAL 01/21/19 21:00 02/17/19 20:59 02/06/19 08:33 Sucralfate (Carafate) 1 gm TID ORAL 01/28/19 01:15 02/27/19 01:14 02/06/19 08:33 Theophylline (Jimmy-Dur) 100 mg EVERY 12 HOURS ORAL 01/21/19 21:00 02/16/19 20:59 02/06/19 08:33 Jersey Chadwick MD Feb 06, 2019 11:47
--- NOTE | 2019-02-06 14:17 | NUR ---
NURSE NOTES: Order received from Dr. Chadwick for STAT chest x-ray due to increasing shortness of breath. Order entered and awaiting x-ray. Dr. Lema saw the patient at the bedside, aware of increasing shortness of breath. No further orders.
[2019-02-06] MEDS ORDERED: Albuterol/Ipratropium 3ml neb HHN PRN (14:21)
--- NOTE | 2019-02-06 14:36 | General Progress Note ---
Assessment/Plan Problem List: (1) UTI (urinary tract infection) ICD Codes: N39.0 - Urinary tract infection, site not specified SNOMED: 08843201 (2) Anemia ICD Codes: D64.9 - Anemia, unspecified SNOMED: 642867823 (3) Arthritis ICD Codes: M19.90 - Unspecified osteoarthritis, unspecified site SNOMED: 0691291 (4) Hypertension ICD Codes: I10 - Essential (primary) hypertension SNOMED: 65015161 (5) COPD exacerbation ICD Codes: J44.1 - Chronic obstructive pulmonary disease with (acute) exacerbation SNOMED: 525970367, 086204469, 165386716 (6) CHF exacerbation ICD Codes: I50.9 - Heart failure, unspecified SNOMED: 11596626, 436116131, 181648660 (7) Cervical radiculopathy ICD Codes: M54.12 - Radiculopathy, cervical region SNOMED: 82967365 Status: stable, progressing Assessment/Plan o2 pulm tx abt pain control pt diet sx eval cbc bmp am dc to snf if clear Subjective Constitutional: Reports: weakness Respiratory: Reports: shortness of breath Allergies: Coded Allergies: PENICILLINS (Verified Allergy, Unknown, SWELLING EVERYWHERE, EVEN EYES PER PATIENT, 11/24/11) All Systems: reviewed and negative except above Subjective o2nc sleepy in bed Objective Last 24 Hour Vital Signs Date Time Temp Pulse Resp B/P (MAP) Pulse Ox O2 Delivery O2 Flow Rate FiO2 02/06/19 12:00 98.4 86 17 98/60 (73) 100 02/06/19 11:48 82 20 98 Nasal Cannula 2.0 28 02/06/19 10:33 98.8 02/06/19 09:00 Nasal Cannula 2.0 Nasal Cannula 2.0 02/06/19 08:00 98.8 89 20 105/60 (75) 98 02/06/19 07:55 84 20 Nasal Cannula 2.0 28 02/06/19 07:55 Nasal Cannula 2.0 28 02/06/19 07:55 99 2.0 28 02/06/19 04:00 98.0 92 20 108/60 (76) 99 02/06/19 00:00 98.2 90 18 125/68 (87) 99 02/05/19 21:13 99 2.0 28 02/05/19 21:13 Nasal Cannula 2.0 28 02/05/19 21:13 87 20 Nasal Cannula 2.0 28 02/05/19 21:00 Nasal Cannula 2.0 Nasal Cannula 2.0 02/05/19 20:00 98.5 89 16 114/65 (81) 98 02/05/19 16:00 97.7 91 18 117/71 (86) 96 Intake and Output 02/05/19 02/06/19 19:00 07:00 Intake Total 720 ml Balance 720 ml Intake Oral 720 ml # Voids 2 Laboratory Tests 02/06/19 05:10: White Blood Count 4.9, Red Blood Count 3.51L, Hemoglobin 9.4L, Hematocrit 30.2L , Mean Corpuscular Volume 86, Mean Corpuscular Hemoglobin 26.9L, Mean Corpuscular Hemoglobin Concent 31.2L, Red Cell Distribution Width 17.0H, Platelet Count 270, Mean Platelet Volume 6.2L, Neutrophils (%) (Auto) 61.3, Lymphocytes (%) (Auto) 23.3, Monocytes (%) (Auto) 5.6, Eosinophils (%) (Auto) 8.2H, Basophils (%) (Auto) 1.6, Sodium Level 137, Potassium Level 3.7, Chloride Level 101, Carbon Dioxide Level 28, Anion Gap 8, Blood Urea Nitrogen 17, Creatinine 0.8, Estimat Glomerular Filtration Rate , Glucose Level 91, Calcium Level 10.3H Height (Feet): 5 Height (Inches): 6.00 Weight (Pounds): 110 General Appearance: lethargic EENT: normal ENT inspection Neck: normal alignment Cardiovascular: normal peripheral pulses, normal rate, regular rhythm Respiratory/Chest: chest wall non-tender, lungs clear, normal breath sounds Abdomen: normal bowel sounds, non tender, soft Extremities: normal inspection Edema: no edema noted Arm (L), no edema noted Arm (R), no edema noted Leg (L), no edema noted Leg (R), no edema noted Pedal (L), no edema noted Pedal (R), no edema noted Generalized Neurologic: responsive, motor weakness Skin: normal pigmentation, warm/dry Rio Lema DO Feb 06, 2019 14:36
--- NOTE | 2019-02-06 14:58 | NUR ---
RADIOLOGY DEPT., CHEST X-RAY DONE.-P.DYE
--- NOTE | 2019-02-06 16:00 | Infectious Diseases Prog Note ---
Assessment/Plan Assessment/Plan Assessment: Probable Aspiration PNA vs pneumonitis, sp Rx -sp cx PsA (R Levo/Cipro; otherwise S including Aztreonam) Pneumomediastinum-suspected to rupture R side paratracheal bleb -01/25 CXR: Suspected interstitial disease. This may be chronic due to fibrosis. Pneumomediastinum. -01/20 CXR: Increasing bilateral parenchymal opacities, likely reflecting increasing edema or infiltrate superimposed on pre-existing chronic opacities. Central mediastinal lucency, likely reflects pneumomediastinum described on recent chest CT -CTA chest: Negative for acute pulmonary embolus or other acute thoracic vascular pathology. Pneumomediastinum. Suspect due to a ruptured right-sided medial bleb. Evidence of extensive chronic pulmonary parenchymal interstitial disease, with areas of honeycombing and bronchiectasis. No definite acute pulmonary parenchymal process. Ectatic main and left main pulmonary arteries, suggestive of pulmonary arterial hypertension. Bullae and subpleural blebs, may be related to the interstitial fibrotic process or could represent COPD changes -CXR: Cardiomegaly. Bilateral extensive interstitial and airspace opacities, slightly increased from but similar in distribution to prior study of 2017. Suspect component of chronic interstitial fibrosis with superimposed acute edema or infiltrates -influenza sc neg Afebrile No leukocytosis AST elevation; improving -HIV ab sc neg -Hep C+, VL neg; cleared infection DM HTN ND CAD CHF cervical radiculopathy CVA asthma COPD /Emphysema sp Bilateral hip replacement intermediate resident Plan: -Continue to monitor off abx -01/25 SP Aztreonam #7 -01/24 SP Azithromycin #5 -01/17 SP Ceftriaxone x1 -f/u cx -monitor CBC/CMP, temperatures -aspiration precautions Subjective Allergies: Coded Allergies: PENICILLINS (Verified Allergy, Unknown, SWELLING EVERYWHERE, EVEN EYES PER PATIENT, 11/24/11) Subjective afebrile at 2l NC no leukocytosis off abx Objective Vital Signs Last 24 Hour Vital Signs Date Time Temp Pulse Resp B/P (MAP) Pulse Ox O2 Delivery O2 Flow Rate FiO2 02/06/19 12:00 98.4 86 17 98/60 (73) 100 02/06/19 11:48 82 20 98 Nasal Cannula 2.0 28 02/06/19 10:33 98.8 02/06/19 09:00 Nasal Cannula 2.0 Nasal Cannula 2.0 02/06/19 08:00 98.8 89 20 105/60 (75) 98 02/06/19 07:55 84 20 Nasal Cannula 2.0 28 02/06/19 07:55 Nasal Cannula 2.0 28 02/06/19 07:55 99 2.0 28 02/06/19 04:00 98.0 92 20 108/60 (76) 99 02/06/19 00:00 98.2 90 18 125/68 (87) 99 02/05/19 21:13 99 2.0 28 02/05/19 21:13 Nasal Cannula 2.0 28 02/05/19 21:13 87 20 Nasal Cannula 2.0 28 02/05/19 21:00 Nasal Cannula 2.0 Nasal Cannula 2.0 02/05/19 20:00 98.5 89 16 114/65 (81) 98 02/05/19 16:00 97.7 91 18 117/71 (86) 96 Height (Feet): 5 Height (Inches): 6.00 Weight (Pounds): 110 Objective GENERAL: Calm in bed, O2 NC, slight short of breath. Oriented x2, no acute distress. CARDIOVASCULAR: No murmurs. LUNGS: Poor air exchange. ABDOMEN: Bowel sounds distant. EXTREMITIES: No cyanosis, clubbing, or edema. NEUROLOGIC: The patient moves all extremities, slightly weak. Laboratory Tests Test 02/06/19 05:10 White Blood Count 4.9 K/UL (4.8-10.8) Red Blood Count 3.51 M/UL (4.20-5.40) L Hemoglobin 9.4 G/DL (12.0-16.0) L Hematocrit 30.2 % (37.0-47.0) L Mean Corpuscular Volume 86 FL (80-99) Mean Corpuscular Hemoglobin 26.9 PG (27.0-31.0) L Mean Corpuscular Hemoglobin Concent 31.2 G/DL (32.0-36.0) L Red Cell Distribution Width 17.0 % (11.6-14.8) H Platelet Count 270 K/UL (150-450) Mean Platelet Volume 6.2 FL (6.5-10.1) L Neutrophils (%) (Auto) 61.3 % (45.0-75.0) Lymphocytes (%) (Auto) 23.3 % (20.0-45.0) Monocytes (%) (Auto) 5.6 % (1.0-10.0) Eosinophils (%) (Auto) 8.2 % (0.0-3.0) H Basophils (%) (Auto) 1.6 % (0.0-2.0) Sodium Level 137 MMOL/L (136-145) Potassium Level 3.7 MMOL/L (3.5-5.1) Chloride Level 101 MMOL/L (98-107) Carbon Dioxide Level 28 MMOL/L (21-32) Anion Gap 8 mmol/L (5-15) Blood Urea Nitrogen 17 mg/dL (7-18) Creatinine 0.8 MG/DL (0.55-1.30) Estimat Glomerular Filtration Rate mL/min (>60) Glucose Level 91 MG/DL (74-106) Calcium Level 10.3 MG/DL (8.5-10.1) H Current Medications Medications (Trade) Dose Ordered Sig/Charly Route PRN Reason Start Time Stop Time Status Last Admin Dose Admin Acetaminophen/ Hydrocodone Bitart ([place] 5/325) 1 tab Q4H PRN ORAL Moderate Pain (Pain Scale 4-6) 02/03/19 19:15 02/10/19 19:14 02/06/19 10:03 Al Hydroxide/Mg Hydroxide (Mylanta) 30 ml Q6H PRN ORAL stomach upset 01/30/19 14:30 03/01/19 14:29 02/02/19 22:41 Albuterol/ Ipratropium (Albuterol/ Ipratropium) 3 ml Q4H PRN HHN Shortness of Breath 02/06/19 14:21 02/11/19 14:20 Alprazolam (Xanax) 0.5 mg Q6H PRN ORAL For Anxiety 02/02/19 12:15 02/09/19 12:14 02/04/19 23:34 Aspirin (Ecotrin) 81 mg DAILY ORAL 01/22/19 09:00 02/18/19 08:59 02/06/19 08:33 Bisacodyl (Dulcolax) 10 mg BIDPRN PRN RECTAL Constipation 01/23/19 10:00 02/22/19 09:59 01/31/19 15:15 Dextrose (Dextrose 50%) 25 ml Q30M PRN IV Hypoglycemia 01/21/19 19:45 02/16/19 17:32 Dextrose (Dextrose 50%) 50 ml Q30M PRN IV Hypoglycemia 01/21/19 19:45 02/16/19 17:32 Docusate Sodium (Colace) 100 mg TWICE A DAY ORAL 01/23/19 10:00 02/22/19 09:59 02/06/19 08:33 Furosemide (Lasix) 40 mg DAILY ORAL 01/22/19 09:00 02/21/19 08:59 02/06/19 08:33 Heparin Sodium (Porcine) (Heparin 5000 units/ml) 5,000 units EVERY 12 HOURS SUBQ 01/21/19 21:00 02/16/19 20:59 02/06/19 08:34 Ibuprofen (Motrin) 600 mg Q6H PRN ORAL For Pain 01/31/19 11:30 03/02/19 11:29 02/04/19 10:28 Lidocaine (Xylocaine 1% MPF 5ml) 10 ml Q4H PRN HHN cough 01/21/19 19:13 02/18/19 19:12 Mineral Oil (Fleet's Mineral Oil Enema) 133 ml DAILYPRN PRN RECTAL Constipation 01/24/19 09:30 02/23/19 09:29 01/27/19 13:38 Nitroglycerin (Ntg) 0.4 mg Q5M X 3 DOSES PRN SL Prn Chest Pain 01/21/19 19:15 02/16/19 17:33 Ondansetron HCl (Zofran) 4 mg Q6H PRN IVP Nausea & Vomiting 01/21/19 19:13 02/16/19 19:12 01/29/19 22:13 Polyethylene Glycol (Miralax) 17 gm BEDTIME ORAL 01/24/19 21:00 02/23/19 20:59 02/02/19 21:15 Polyethylene Glycol (Miralax) 17 gm DAILYPRN PRN ORAL Constipation 01/31/19 11:30 03/02/19 11:29 01/31/19 11:57 Potassium Chloride (K-Dur) 40 meq DAILY ORAL 01/25/19 11:00 02/24/19 10:59 02/01/19 08:57 Promethazine HCl/ Codeine (Phenergan with Codeine) 5 ml Q6H PRN ORAL cough 01/21/19 19:14 02/16/19 19:13 01/31/19 16:35 Quetiapine Fumarate (SEROquel) 25 mg Q12HR ORAL 01/21/19 21:00 02/17/19 20:59 02/06/19 08:33 Sucralfate (Carafate) 1 gm TID ORAL 01/28/19 01:15 02/27/19 01:14 02/06/19 08:33 Theophylline (Jimmy-Dur) 100 mg EVERY 12 HOURS ORAL 01/21/19 21:00 02/16/19 20:59 02/06/19 08:33 Katt Ken M.D. Feb 06, 2019 15:59
--- NOTE | 2019-02-06 16:05 | Diagnostic Imaging Report ---
Indication: Shortness of breath Technique: One view of the chest Comparison: 01/24/2019 Findings: There is bilateral diffuse interstitial disease with a somewhat reticular pattern, appearance of which is somewhat similar to the previous exam although somewhat more severe. The heart is enlarged. There is minimal blunting of the right costophrenic sulcus Impression: Bilateral diffuse interstitial disease. Based on prior imaging studies, probably mostly on the basis of chronic interstitial fibrosis. However, a component of acute interstitial edema also possible, particularly as findings appear slightly more severe than on the prior study. Mild cardiomegaly
--- NOTE | 2019-02-06 16:06 | NUR ---
NURSE NOTES: Dr. Golden saw patient at the bedside. Informed MD of patient's worsening shortness of breath. MD evaluated patient's STAT chest x-ray from today. No further orders. Patient does not appear to be in distress at this time. No increased work of breathing, O2 saturation is within normal range. Will continue to monitor.
--- NOTE | 2019-02-06 16:15 | Cardiac Electrophysiology PN ---
Assessment/Plan Assessment/Plan 1. Type 2 NSTEMI. No CP or SOB. EF normal . ECG incomplete LBBB, LVH. On aspirin and off Beta ehsan for asthma 2. CHF due to diastolic dysfunction with BNP >1500. On Lasix 40 mg po daily. CXR no significant change 3. Hypertension. On Lasix 4. COPD exacerbation and severe pulmonary HTN 5. Anemia. 6. UTI 8. Osteoarthritis. 9. Cervical radiculopathy. 10. Constipation, resolved DW RN Subjective Subjective Was SOB earlier and had CXR. Feeling better on Oxygen. Objective Last 24 Hour Vital Signs Date Time Temp Pulse Resp B/P (MAP) Pulse Ox O2 Delivery O2 Flow Rate FiO2 02/06/19 12:00 98.4 86 17 98/60 (73) 100 02/06/19 11:48 82 20 98 Nasal Cannula 2.0 28 02/06/19 10:33 98.8 02/06/19 09:00 Nasal Cannula 2.0 Nasal Cannula 2.0 02/06/19 08:00 98.8 89 20 105/60 (75) 98 02/06/19 07:55 84 20 Nasal Cannula 2.0 28 02/06/19 07:55 Nasal Cannula 2.0 28 02/06/19 07:55 99 2.0 28 02/06/19 04:00 98.0 92 20 108/60 (76) 99 02/06/19 00:00 98.2 90 18 125/68 (87) 99 02/05/19 21:13 99 2.0 28 02/05/19 21:13 Nasal Cannula 2.0 28 02/05/19 21:13 87 20 Nasal Cannula 2.0 28 02/05/19 21:00 Nasal Cannula 2.0 Nasal Cannula 2.0 02/05/19 20:00 98.5 89 16 114/65 (81) 98 Intake and Output 02/05/19 02/06/19 19:00 07:00 Intake Total 720 ml Balance 720 ml Intake Oral 720 ml # Voids 2 Laboratory Tests Test 02/06/19 05:10 White Blood Count 4.9 K/UL (4.8-10.8) Red Blood Count 3.51 M/UL (4.20-5.40) L Hemoglobin 9.4 G/DL (12.0-16.0) L Hematocrit 30.2 % (37.0-47.0) L Mean Corpuscular Volume 86 FL (80-99) Mean Corpuscular Hemoglobin 26.9 PG (27.0-31.0) L Mean Corpuscular Hemoglobin Concent 31.2 G/DL (32.0-36.0) L Red Cell Distribution Width 17.0 % (11.6-14.8) H Platelet Count 270 K/UL (150-450) Mean Platelet Volume 6.2 FL (6.5-10.1) L Neutrophils (%) (Auto) 61.3 % (45.0-75.0) Lymphocytes (%) (Auto) 23.3 % (20.0-45.0) Monocytes (%) (Auto) 5.6 % (1.0-10.0) Eosinophils (%) (Auto) 8.2 % (0.0-3.0) H Basophils (%) (Auto) 1.6 % (0.0-2.0) Sodium Level 137 MMOL/L (136-145) Potassium Level 3.7 MMOL/L (3.5-5.1) Chloride Level 101 MMOL/L (98-107) Carbon Dioxide Level 28 MMOL/L (21-32) Anion Gap 8 mmol/L (5-15) Blood Urea Nitrogen 17 mg/dL (7-18) Creatinine 0.8 MG/DL (0.55-1.30) Estimat Glomerular Filtration Rate mL/min (>60) Glucose Level 91 MG/DL (74-106) Calcium Level 10.3 MG/DL (8.5-10.1) H Objective HEENT: No JVD. Has Oxygen on Respiratory/Chest: Clear Cardiovascular/Chest: Normal S1, S2. normal rate, regular rhythm Abdomen: normal bowel sounds, non tender, Extremities: No edema Renzo Burgess MD Feb 06, 2019 16:15
[2019-02-06] MEDS: ALPRAZolam 0.5mg tab ORAL PRN (18:07)
--- NOTE | 2019-02-06 19:00 | NUR ---
NURSE NOTES: Patient placed on pressure relief mattress for skin protection and comfort.
--- NOTE | 2019-02-06 19:00 | NUR ---
HAND-OFF: Report given to Grisel ABARCA. Patient is in stable condition.
--- NOTE | 2019-02-06 19:43 | NUR ---
NURSE NOTES:Patient received from DONNY Rincon patient in bed . denies any pain at this time . no s/s of distress noted RFA g#22 H/L Patent and intact , call light within reach bed in low position at all times . will continue to monitor. Addendum: 02/08/19 at 0109 by LEANN MCGILL LVN NURSE NOTES: patient on pure wick secondary to incontinent bowels and bladder . patient keep clean and dry at all .times bilateral buttocks wash with soap and water pat dry. triad cream and Optifoam applied patient turned and repositioned for comfort .
[2019-02-06] MEDS: Miralax 17gm pkt ORAL SCH (21:25)
[2019-02-07] VITALS: BP 116/70
[2019-02-07 04:00] VITALS: BP 105/55
[2019-02-07 06:37] LABS: BASOPHILS % (AUTO) 1.2 % (0.0-2.0); EOSINOPHILS % (AUTO) 6.5 % (0.0-3.0); HEMOGLOBIN 9.8 G/DL (12.0-16.0); LYMPHOCYTES % (AUTO) 18.3 % (20.0-45.0); MEAN CORPUSCULAR VOLUME 87 FL (80-99); MONOCYTES % (AUTO) 7.2 % (1.0-10.0); NEUTROPHILS % (AUTO) 66.9 % (45.0-75.0); PLATELET COUNT 268 K/UL (150-450); RED BLOOD COUNT 3.56 M/UL (4.20-5.40); RED CELL DISTRIBUTION WIDTH 17.3 % (11.6-14.8); WHITE BLOOD COUNT 4.9 K/UL (4.8-10.8)
[2019-02-07 06:59] LABS: ANION GAP 7 mmol/L (5-15); BLOOD UREA NITROGEN 18 mg/dL (7-18); CALCIUM 10.7 MG/DL (8.5-10.1); CARBON DIOXIDE 30 MMOL/L (21-32); CHLORIDE 102 MMOL/L (98-107); CREATININE 0.8 MG/DL (0.55-1.30); POTASSIUM 3.9 MMOL/L (3.5-5.1); SODIUM 139 MMOL/L (136-145)
--- NOTE | 2019-02-07 07:25 | NUR ---
NURSE NOTES:WALKNG ROUNDS DONE WITH NIGHT NURSE(LEANN ABARCA),PATIENT A/OX4,ON 2LITERS N/C,NO C/O PAIN.ON PUREWICK SECONDARY TO INCONTINENCE OF URINE,BIATIN FOAM INTACT TO BUTTOCKS,ON PRESSURE MATTRESS.HEPLOCK PATENT ON RIGHT AC.AWAITING FOR PLACEMENT.PLAN OF CARE DISCUSSED AND VERBALIZE WITH UNDERSTANDING.
--- NOTE | 2019-02-07 07:25 | NUR ---
HAND-OFF: Report given to Bouchra Rincon
[2019-02-07] MEDS: Aspirin EC 81mg tab ORAL SCH (07:58)
[2019-02-07] MEDS: Furosemide 40mg tab ORAL SCH (07:58)
[2019-02-07] MEDS: Sucralfate 1gm tab ORAL SCH ×4 (07:59→17:06)
[2019-02-07] MEDS: Theophylline ER 100mg ORAL SCH ×2 (07:59→21:08)
[2019-02-07 08:00] VITALS: BP 97/54
[2019-02-07] MEDS: Heparin 5000 units/ml inj SUBQ SCH ×2 (08:00→21:09)
[2019-02-07] MEDS: Docusate 100mg cap ORAL SCH ×2 (08:00→17:06)
--- NOTE | 2019-02-07 10:19 | Cardiac Electrophysiology PN ---
Assessment/Plan Assessment/Plan 1. Type 2 NSTEMI. No CP or SOB. EF normal . ECG incomplete LBBB, LVH. On aspirin and off Beta ehsan for asthma 2. CHF due to diastolic dysfunction with BNP >1500. On Lasix 40 mg po daily. CXR no significant change 3. Hypertension. On Lasix 4. COPD exacerbation and severe pulmonary HTN On Theophylline 100 bid 5. Anemia. 6. UTI 8. Osteoarthritis. 9. Cervical radiculopathy. 10. Constipation, resolved DW RN Subjective Subjective Feeling better on Oxygen.CXR no significant change Objective Last 24 Hour Vital Signs Date Time Temp Pulse Resp B/P (MAP) Pulse Ox O2 Delivery O2 Flow Rate FiO2 02/07/19 08:00 98.1 73 19 97/54 (68) 96 02/07/19 07:40 Nasal Cannula 2.0 Nasal Cannula 2.0 02/07/19 07:34 90 18 Nasal Cannula 2.0 28 02/07/19 07:32 99 Nasal Cannula 2.0 28 02/07/19 07:32 Nasal Cannula 2.0 28 02/07/19 04:00 98.7 85 20 105/55 (72) 97 02/07/19 00:00 98.8 92 20 116/70 (85) 96 02/06/19 21:00 Nasal Cannula 2.0 Nasal Cannula 2.0 02/06/19 20:00 98.8 96 19 110/62 (78) 98 02/06/19 19:28 98 Nasal Cannula 2.0 28 02/06/19 19:28 Nasal Cannula 2.0 28 02/06/19 19:27 86 18 Nasal Cannula 2.0 28 02/06/19 18:05 105/59 (74) 02/06/19 16:16 88 20 98 Nasal Cannula 2.0 28 02/06/19 16:07 85 20 98 Nasal Cannula 2.0 28 02/06/19 16:00 97.7 90 19 94/61 (72) 100 02/06/19 12:06 90 20 98 Nasal Cannula 2.0 28 02/06/19 12:00 98.4 86 17 98/60 (73) 100 02/06/19 11:48 82 20 98 Nasal Cannula 2.0 28 02/06/19 10:33 98.8 Intake and Output 02/06/19 02/07/19 19:00 07:00 Intake Total 300 ml 520 ml Output Total 350 ml Balance 300 ml 170 ml Intake Oral 300 ml 520 ml Output Urine Total 350 ml # Voids 3 2 # Bowel Movements 1 Laboratory Tests Test 02/07/19 06:07 White Blood Count 4.9 K/UL (4.8-10.8) Red Blood Count 3.56 M/UL (4.20-5.40) L Hemoglobin 9.8 G/DL (12.0-16.0) L Hematocrit 31.0 % (37.0-47.0) L Mean Corpuscular Volume 87 FL (80-99) Mean Corpuscular Hemoglobin 27.4 PG (27.0-31.0) Mean Corpuscular Hemoglobin Concent 31.4 G/DL (32.0-36.0) L Red Cell Distribution Width 17.3 % (11.6-14.8) H Platelet Count 268 K/UL (150-450) Mean Platelet Volume 6.6 FL (6.5-10.1) Neutrophils (%) (Auto) 66.9 % (45.0-75.0) Lymphocytes (%) (Auto) 18.3 % (20.0-45.0) L Monocytes (%) (Auto) 7.2 % (1.0-10.0) Eosinophils (%) (Auto) 6.5 % (0.0-3.0) H Basophils (%) (Auto) 1.2 % (0.0-2.0) Sodium Level 139 MMOL/L (136-145) Potassium Level 3.9 MMOL/L (3.5-5.1) Chloride Level 102 MMOL/L (98-107) Carbon Dioxide Level 30 MMOL/L (21-32) Anion Gap 7 mmol/L (5-15) Blood Urea Nitrogen 18 mg/dL (7-18) Creatinine 0.8 MG/DL (0.55-1.30) Estimat Glomerular Filtration Rate mL/min (>60) Glucose Level 94 MG/DL (74-106) Calcium Level 10.7 MG/DL (8.5-10.1) H Objective HEENT: No JVD. Has Oxygen on Respiratory/Chest: Clear Cardiovascular/Chest: Normal S1, S2. normal rate, regular rhythm Abdomen: normal bowel sounds, non tender, Extremities: No edema Renzo Burgess MD Feb 07, 2019 10:19
--- NOTE | 2019-02-07 11:11 | GI Progress Note ---
Assessment/Plan Problems: (1) Anemia ICD Codes: D64.9 - Anemia, unspecified SNOMED: 142281537 (2) Protein-calorie malnutrition, severe ICD Codes: E43 - Unspecified severe protein-calorie malnutrition SNOMED: 064296724, 770187008, 352592120 (3) Constipation ICD Codes: K59.00 - Constipation, unspecified SNOMED: 53581220 Status: stable Status Narrative Discussed with Dr. Mustafa Assessment/Plan okay for DC per GI standpoint hep C viral load neg bowel regimen given neg stool ob hold in patient GI procedure fu labs PT evaluation The patient was seen and examined at bedside and all new and available data was reviewed in the patients chart. I agree with the above findings, impression and plan. (Patient seen earlier today. Signature stamp does not reflect patient encounter time.). - Adrian Mustafa MD Subjective Subjective Patient denies any abdominal pain Patient reported bowel movement yesterday Tolerating diet Objective Last 24 Hour Vital Signs Date Time Temp Pulse Resp B/P (MAP) Pulse Ox O2 Delivery O2 Flow Rate FiO2 02/07/19 08:00 98.1 73 19 97/54 (68) 96 02/07/19 07:40 Nasal Cannula 2.0 Nasal Cannula 2.0 02/07/19 07:34 90 18 Nasal Cannula 2.0 28 02/07/19 07:32 99 Nasal Cannula 2.0 28 02/07/19 07:32 Nasal Cannula 2.0 28 02/07/19 04:00 98.7 85 20 105/55 (72) 97 02/07/19 00:00 98.8 92 20 116/70 (85) 96 02/06/19 21:00 Nasal Cannula 2.0 Nasal Cannula 2.0 02/06/19 20:00 98.8 96 19 110/62 (78) 98 02/06/19 19:28 98 Nasal Cannula 2.0 28 02/06/19 19:28 Nasal Cannula 2.0 28 02/06/19 19:27 86 18 Nasal Cannula 2.0 28 02/06/19 18:05 105/59 (74) 02/06/19 16:16 88 20 98 Nasal Cannula 2.0 28 02/06/19 16:07 85 20 98 Nasal Cannula 2.0 28 02/06/19 16:00 97.7 90 19 94/61 (72) 100 02/06/19 12:06 90 20 98 Nasal Cannula 2.0 28 02/06/19 12:00 98.4 86 17 98/60 (73) 100 02/06/19 11:48 82 20 98 Nasal Cannula 2.0 28 Intake and Output 02/06/19 02/07/19 19:00 07:00 Intake Total 300 ml 520 ml Output Total 350 ml Balance 300 ml 170 ml Intake Oral 300 ml 520 ml Output Urine Total 350 ml # Voids 3 2 # Bowel Movements 1 Laboratory Tests Test 02/07/19 06:07 White Blood Count 4.9 K/UL (4.8-10.8) Red Blood Count 3.56 M/UL (4.20-5.40) L Hemoglobin 9.8 G/DL (12.0-16.0) L Hematocrit 31.0 % (37.0-47.0) L Mean Corpuscular Volume 87 FL (80-99) Mean Corpuscular Hemoglobin 27.4 PG (27.0-31.0) Mean Corpuscular Hemoglobin Concent 31.4 G/DL (32.0-36.0) L Red Cell Distribution Width 17.3 % (11.6-14.8) H Platelet Count 268 K/UL (150-450) Mean Platelet Volume 6.6 FL (6.5-10.1) Neutrophils (%) (Auto) 66.9 % (45.0-75.0) Lymphocytes (%) (Auto) 18.3 % (20.0-45.0) L Monocytes (%) (Auto) 7.2 % (1.0-10.0) Eosinophils (%) (Auto) 6.5 % (0.0-3.0) H Basophils (%) (Auto) 1.2 % (0.0-2.0) Sodium Level 139 MMOL/L (136-145) Potassium Level 3.9 MMOL/L (3.5-5.1) Chloride Level 102 MMOL/L (98-107) Carbon Dioxide Level 30 MMOL/L (21-32) Anion Gap 7 mmol/L (5-15) Blood Urea Nitrogen 18 mg/dL (7-18) Creatinine 0.8 MG/DL (0.55-1.30) Estimat Glomerular Filtration Rate mL/min (>60) Glucose Level 94 MG/DL (74-106) Calcium Level 10.7 MG/DL (8.5-10.1) H Height (Feet): 5 Height (Inches): 6.00 Weight (Pounds): 110 General Appearance: WD/WN, no apparent distress, alert, thin Cardiovascular: normal rate Respiratory/Chest: normal breath sounds, no respiratory distress Abdominal Exam: normal bowel sounds, non tender, soft Extremities: normal range of motion, non-tender Loy Hamilton MANAGER [employer] APPLICATIONS Feb 07, 2019 11:11
[2019-02-07 11:51] VITALS: BP 107/59
[2019-02-07] MEDS: HYDROcodone/Acetamin 5/325 tab ORAL PRN ×2 (11:56→18:43)
--- NOTE | 2019-02-07 12:08 | NUR ---
CASE MANAGEMENT:REVIEW 02/07/19 SI: COPD EXACERBATION 98.3 96 20 107/59 97% ON 2L/NC H/H-9.8/31.0 IS: NORCO PO Q4HRS PRN XANAX PO Q6HRS PRN MOTRIN PO Q6HR CARAFATE PO TID K-DUR PO QD LASIX PO QD HEPARIN SQ Q12 ULICES-DUR PO Q12 : MED/SURG STATUS 3 [facility]: PATIENT IS FROM [facility] BUT BED WAS GIVEN AWAY [facility] HAS BEEN SEEKING NEW PLACEMENT FOR OVER A WEEK NOW. THIS WAREHOUSE ADMINISTRATIVE ASSISTANT REFERRED PATIENT TO [facility]....HOPING THEY WILL ACCEPT
--- NOTE | 2019-02-07 12:09 | Pulmonology Progress Note ---
Assessment/Plan Problems: (1) Acute respiratory failure (2) COPD exacerbation (3) Pulmonary hypertension (4) Pulmonary fibrosis (5) Elevated troponin (6) Protein-calorie malnutrition, severe (7) Hypertension Assessment/Plan repeat cxr didn't show any new changes respiratory treatment all reviewed still constipated titrate fio2 to sat of 92 monitor BP eating well continue with PT, OT feeling better awaiting dc planning Subjective ROS Limited/Unobtainable: No Constitutional: Reports: no symptoms HEENT: Repors: no symptoms Respiratory: Reports: no symptoms Allergies: Coded Allergies: PENICILLINS (Verified Allergy, Unknown, SWELLING EVERYWHERE, EVEN EYES PER PATIENT, 11/24/11) Objective Last 24 Hour Vital Signs Date Time Temp Pulse Resp B/P (MAP) Pulse Ox O2 Delivery O2 Flow Rate FiO2 02/07/19 11:51 98.3 96 20 107/59 (75) 97 02/07/19 08:00 98.1 73 19 97/54 (68) 96 02/07/19 07:40 Nasal Cannula 2.0 Nasal Cannula 2.0 02/07/19 07:34 90 18 Nasal Cannula 2.0 28 02/07/19 07:32 99 Nasal Cannula 2.0 28 02/07/19 07:32 Nasal Cannula 2.0 28 02/07/19 04:00 98.7 85 20 105/55 (72) 97 02/07/19 00:00 98.8 92 20 116/70 (85) 96 02/06/19 21:00 Nasal Cannula 2.0 Nasal Cannula 2.0 02/06/19 20:00 98.8 96 19 110/62 (78) 98 02/06/19 19:28 98 Nasal Cannula 2.0 28 02/06/19 19:28 Nasal Cannula 2.0 28 02/06/19 19:27 86 18 Nasal Cannula 2.0 28 02/06/19 18:05 105/59 (74) 02/06/19 16:16 88 20 98 Nasal Cannula 2.0 28 02/06/19 16:07 85 20 98 Nasal Cannula 2.0 28 02/06/19 16:00 97.7 90 19 94/61 (72) 100 Intake and Output 02/06/19 02/07/19 19:00 07:00 Intake Total 300 ml 520 ml Output Total 350 ml Balance 300 ml 170 ml Intake Oral 300 ml 520 ml Output Urine Total 350 ml # Voids 3 2 # Bowel Movements 1 Objective General Appearance: cachetic HEENT: normocephalic, atraumatic Respiratory/Chest: chest wall non-tender, normal breath sounds Cardiovascular: normal peripheral pulses, regular rhythm Abdomen: normal bowel sounds, soft, non tender Laboratory Tests 02/07/19 06:07: White Blood Count 4.9, Red Blood Count 3.56L, Hemoglobin 9.8L, Hematocrit 31.0L , Mean Corpuscular Volume 87, Mean Corpuscular Hemoglobin 27.4, Mean Corpuscular Hemoglobin Concent 31.4L, Red Cell Distribution Width 17.3H, Platelet Count 268, Mean Platelet Volume 6.6, Neutrophils (%) (Auto) 66.9, Lymphocytes (%) (Auto) 18.3L, Monocytes (%) (Auto) 7.2, Eosinophils (%) (Auto) 6.5H, Basophils (%) (Auto) 1.2, Sodium Level 139, Potassium Level 3.9, Chloride Level 102, Carbon Dioxide Level 30, Anion Gap 7, Blood Urea Nitrogen 18, Creatinine 0.8, Estimat Glomerular Filtration Rate , Glucose Level 94, Calcium Level 10.7H Current Medications Medications (Trade) Dose Ordered Sig/Charly Route PRN Reason Start Time Stop Time Status Last Admin Dose Admin Acetaminophen/ Hydrocodone Bitart (Thrall 5/325) 1 tab Q4H PRN ORAL Moderate Pain (Pain Scale 4-6) 02/03/19 19:15 02/10/19 19:14 02/07/19 11:56 Al Hydroxide/Mg Hydroxide (Mylanta) 30 ml Q6H PRN ORAL stomach upset 01/30/19 14:30 03/01/19 14:29 02/02/19 22:41 Albuterol/ Ipratropium (Albuterol/ Ipratropium) 3 ml Q4H PRN HHN Shortness of Breath 02/06/19 14:21 02/11/19 14:20 02/06/19 16:06 Alprazolam (Xanax) 0.5 mg Q6H PRN ORAL For Anxiety 02/02/19 12:15 02/09/19 12:14 02/06/19 18:07 Aspirin (Ecotrin) 81 mg DAILY ORAL 01/22/19 09:00 02/18/19 08:59 02/07/19 07:58 Bisacodyl (Dulcolax) 10 mg BIDPRN PRN RECTAL Constipation 01/23/19 10:00 02/22/19 09:59 01/31/19 15:15 Dextrose (Dextrose 50%) 25 ml Q30M PRN IV Hypoglycemia 01/21/19 19:45 02/16/19 17:32 Dextrose (Dextrose 50%) 50 ml Q30M PRN IV Hypoglycemia 01/21/19 19:45 02/16/19 17:32 Docusate Sodium (Colace) 100 mg TWICE A DAY ORAL 01/23/19 10:00 02/22/19 09:59 02/06/19 18:07 Furosemide (Lasix) 40 mg DAILY ORAL 01/22/19 09:00 02/21/19 08:59 02/07/19 07:58 Heparin Sodium (Porcine) (Heparin 5000 units/ml) 5,000 units EVERY 12 HOURS SUBQ 01/21/19 21:00 02/16/19 20:59 02/07/19 08:00 Ibuprofen (Motrin) 600 mg Q6H PRN ORAL For Pain 01/31/19 11:30 03/02/19 11:29 02/04/19 10:28 Lidocaine (Xylocaine 1% MPF 5ml) 10 ml Q4H PRN HHN cough 01/21/19 19:13 02/18/19 19:12 Mineral Oil (Fleet's Mineral Oil Enema) 133 ml DAILYPRN PRN RECTAL Constipation 01/24/19 09:30 02/23/19 09:29 01/27/19 13:38 Nitroglycerin (Ntg) 0.4 mg Q5M X 3 DOSES PRN SL Prn Chest Pain 01/21/19 19:15 02/16/19 17:33 Ondansetron HCl (Zofran) 4 mg Q6H PRN IVP Nausea & Vomiting 01/21/19 19:13 02/16/19 19:12 01/29/19 22:13 Polyethylene Glycol (Miralax) 17 gm BEDTIME ORAL 01/24/19 21:00 02/23/19 20:59 02/06/19 21:25 Polyethylene Glycol (Miralax) 17 gm DAILYPRN PRN ORAL Constipation 01/31/19 11:30 03/02/19 11:29 01/31/19 11:57 Potassium Chloride (K-Dur) 40 meq DAILY ORAL 01/25/19 11:00 02/24/19 10:59 02/01/19 08:57 Promethazine HCl/ Codeine (Phenergan with Codeine) 5 ml Q6H PRN ORAL cough 01/21/19 19:14 02/16/19 19:13 01/31/19 16:35 Quetiapine Fumarate (SEROquel) 25 mg Q12HR ORAL 01/21/19 21:00 02/17/19 20:59 02/07/19 07:58 Sucralfate (Carafate) 1 gm TID ORAL 01/28/19 01:15 02/27/19 01:14 02/07/19 11:55 Theophylline (Jimmy-Dur) 100 mg EVERY 12 HOURS ORAL 01/21/19 21:00 02/16/19 20:59 02/07/19 07:59 Jersey Chadwick MD Feb 07, 2019 12:09
--- NOTE | 2019-02-07 14:13 | General Progress Note ---
Assessment/Plan Problem List: (1) UTI (urinary tract infection) ICD Codes: N39.0 - Urinary tract infection, site not specified SNOMED: 54342822 (2) Anemia ICD Codes: D64.9 - Anemia, unspecified SNOMED: 687780725 (3) Arthritis ICD Codes: M19.90 - Unspecified osteoarthritis, unspecified site SNOMED: 1398072 (4) Hypertension ICD Codes: I10 - Essential (primary) hypertension SNOMED: 10610429 (5) COPD exacerbation ICD Codes: J44.1 - Chronic obstructive pulmonary disease with (acute) exacerbation SNOMED: 392460374, 346175483, 871115258 (6) CHF exacerbation ICD Codes: I50.9 - Heart failure, unspecified SNOMED: 15513453, 300654352, 112412179 (7) Cervical radiculopathy ICD Codes: M54.12 - Radiculopathy, cervical region SNOMED: 43173609 Status: unchanged Assessment/Plan o2 pulm tx abt pain control pt diet sx eval cbc bmp am dc to snf if clear Subjective Constitutional: Reports: weakness Allergies: Coded Allergies: PENICILLINS (Verified Allergy, Unknown, SWELLING EVERYWHERE, EVEN EYES PER PATIENT, 11/24/11) All Systems: reviewed and negative except above Subjective o2nc sleepy in bed Objective Last 24 Hour Vital Signs Date Time Temp Pulse Resp B/P (MAP) Pulse Ox O2 Delivery O2 Flow Rate FiO2 02/07/19 11:51 98.3 96 20 107/59 (75) 97 02/07/19 08:00 98.1 73 19 97/54 (68) 96 02/07/19 07:40 Nasal Cannula 2.0 Nasal Cannula 2.0 02/07/19 07:34 90 18 Nasal Cannula 2.0 28 02/07/19 07:32 99 Nasal Cannula 2.0 28 02/07/19 07:32 Nasal Cannula 2.0 28 02/07/19 04:00 98.7 85 20 105/55 (72) 97 02/07/19 00:00 98.8 92 20 116/70 (85) 96 02/06/19 21:00 Nasal Cannula 2.0 Nasal Cannula 2.0 02/06/19 20:00 98.8 96 19 110/62 (78) 98 02/06/19 19:28 98 Nasal Cannula 2.0 28 02/06/19 19:28 Nasal Cannula 2.0 28 02/06/19 19:27 86 18 Nasal Cannula 2.0 28 02/06/19 18:05 105/59 (74) 02/06/19 16:16 88 20 98 Nasal Cannula 2.0 28 02/06/19 16:07 85 20 98 Nasal Cannula 2.0 28 02/06/19 16:00 97.7 90 19 94/61 (72) 100 Intake and Output 02/06/19 02/07/19 19:00 07:00 Intake Total 300 ml 520 ml Output Total 350 ml Balance 300 ml 170 ml Intake Oral 300 ml 520 ml Output Urine Total 350 ml # Voids 3 2 # Bowel Movements 1 Laboratory Tests 02/07/19 06:07: White Blood Count 4.9, Red Blood Count 3.56L, Hemoglobin 9.8L, Hematocrit 31.0L , Mean Corpuscular Volume 87, Mean Corpuscular Hemoglobin 27.4, Mean Corpuscular Hemoglobin Concent 31.4L, Red Cell Distribution Width 17.3H, Platelet Count 268, Mean Platelet Volume 6.6, Neutrophils (%) (Auto) 66.9, Lymphocytes (%) (Auto) 18.3L, Monocytes (%) (Auto) 7.2, Eosinophils (%) (Auto) 6.5H, Basophils (%) (Auto) 1.2, Sodium Level 139, Potassium Level 3.9, Chloride Level 102, Carbon Dioxide Level 30, Anion Gap 7, Blood Urea Nitrogen 18, Creatinine 0.8, Estimat Glomerular Filtration Rate , Glucose Level 94, Calcium Level 10.7H Height (Feet): 5 Height (Inches): 6.00 Weight (Pounds): 110 General Appearance: lethargic EENT: normal ENT inspection Neck: normal alignment Cardiovascular: normal peripheral pulses, normal rate, regular rhythm Respiratory/Chest: chest wall non-tender, decreased breath sounds Abdomen: normal bowel sounds, non tender, soft Extremities: normal inspection Edema: no edema noted Arm (L), no edema noted Arm (R), no edema noted Leg (L), no edema noted Leg (R), no edema noted Pedal (L), no edema noted Pedal (R), no edema noted Generalized Neurologic: motor weakness Skin: normal pigmentation, warm/dry Rio Lema DO Feb 07, 2019 14:13
--- NOTE | 2019-02-07 14:18 | NUR ---
RD ASSESSMENT & RECOMMENDATIONS SEE CARE ACTIVITY FOR COMPLETE ASSESSMENT DAILY ESTIMATED NEEDS: Needs based on wasting, pulmonary/ 52kg 28-33 kcals/kg 3121-6641 total kcals 1.0-1.5 g protein/kg 52-78 g total protein 25-30 mL/kg 7294-1591 total fluid mLs NUTRITION DIAGNOSIS: Swallowing difficulty R/T dysphagia w/ h/o CVA + PNA as evidenced by BOOTH SUPERVISOR recommends pureed moist texture, NTL at this time-> now upgraded to Regular texture. CURRENT DIET: REGULAR PO DIET RECOMMENDATIONS: LOW NA/ texture per BOOTH SUPERVISOR ADDITIONAL RECOMMENDATIONS: * Txr pt to bed with bedscale, obtain calibrated bedscale wt * Weekly wt monitoring- pt reports recent wt loss (last wt 01/28) * Ensure Enlive TID w/ meals * Monitor PO intake and tolerance closely -> improving at this time * on lasix, monitor lytes daily, replete as needed * Add snacks in b/w meals
--- NOTE | 2019-02-07 14:35 | Infectious Diseases Prog Note ---
Assessment/Plan Assessment/Plan Assessment: Probable Aspiration PNA vs pneumonitis, sp Rx -sp cx PsA (R Levo/Cipro; otherwise S including Aztreonam) Pneumomediastinum-suspected to rupture R side paratracheal bleb -02/06 CXR: Bilateral diffuse interstitial disease. Based on prior imaging studies, probably mostly on the basis of chronic interstitial fibrosis. However , a component of acute interstitial edema also possible, particularly as findings appear slightly more severe than on the prior study.Mild cardiomegaly -01/25 CXR: Suspected interstitial disease. This may be chronic due to fibrosis. Pneumomediastinum. -01/20 CXR: Increasing bilateral parenchymal opacities, likely reflecting increasing edema or infiltrate superimposed on pre-existing chronic opacities. Central mediastinal lucency, likely reflects pneumomediastinum described on recent chest CT -CTA chest: Negative for acute pulmonary embolus or other acute thoracic vascular pathology. Pneumomediastinum. Suspect due to a ruptured right-sided medial bleb. Evidence of extensive chronic pulmonary parenchymal interstitial disease, with areas of honeycombing and bronchiectasis. No definite acute pulmonary parenchymal process. Ectatic main and left main pulmonary arteries, suggestive of pulmonary arterial hypertension. Bullae and subpleural blebs, may be related to the interstitial fibrotic process or could represent COPD changes -CXR: Cardiomegaly. Bilateral extensive interstitial and airspace opacities, slightly increased from but similar in distribution to prior study of 2017. Suspect component of chronic interstitial fibrosis with superimposed acute edema or infiltrates -influenza sc neg Afebrile No leukocytosis AST elevation; improving -HIV ab sc neg -Hep C+, VL neg; cleared infection DM HTN MS CAD CHF cervical radiculopathy CVA asthma COPD /Emphysema sp Bilateral hip replacement detention resident Plan: -Continue to monitor off abx -01/25 SP Aztreonam #7 -01/24 SP Azithromycin #5 -01/17 SP Ceftriaxone x1 -f/u cx -monitor CBC/CMP, temperatures -aspiration precautions Subjective Allergies: Coded Allergies: PENICILLINS (Verified Allergy, Unknown, SWELLING EVERYWHERE, EVEN EYES PER PATIENT, 11/24/11) Subjective afebrile at 2l NC no leukocytosis off abx feelinb better Objective Vital Signs Last 24 Hour Vital Signs Date Time Temp Pulse Resp B/P (MAP) Pulse Ox O2 Delivery O2 Flow Rate FiO2 02/07/19 11:51 98.3 96 20 107/59 (75) 97 02/07/19 08:00 98.1 73 19 97/54 (68) 96 02/07/19 07:40 Nasal Cannula 2.0 Nasal Cannula 2.0 02/07/19 07:34 90 18 Nasal Cannula 2.0 28 02/07/19 07:32 99 Nasal Cannula 2.0 28 02/07/19 07:32 Nasal Cannula 2.0 28 02/07/19 04:00 98.7 85 20 105/55 (72) 97 02/07/19 00:00 98.8 92 20 116/70 (85) 96 02/06/19 21:00 Nasal Cannula 2.0 Nasal Cannula 2.0 02/06/19 20:00 98.8 96 19 110/62 (78) 98 02/06/19 19:28 98 Nasal Cannula 2.0 28 02/06/19 19:28 Nasal Cannula 2.0 28 02/06/19 19:27 86 18 Nasal Cannula 2.0 28 02/06/19 18:05 105/59 (74) 02/06/19 16:16 88 20 98 Nasal Cannula 2.0 28 02/06/19 16:07 85 20 98 Nasal Cannula 2.0 28 02/06/19 16:00 97.7 90 19 94/61 (72) 100 Height (Feet): 5 Height (Inches): 6.00 Weight (Pounds): 110 Objective GENERAL: Calm in bed, O2 NC, slight short of breath. Oriented x2, no acute distress. CARDIOVASCULAR: No murmurs. LUNGS: Poor air exchange. ABDOMEN: Bowel sounds distant. EXTREMITIES: No cyanosis, clubbing, or edema. NEUROLOGIC: The patient moves all extremities, slightly weak. Laboratory Tests Test 02/07/19 06:07 White Blood Count 4.9 K/UL (4.8-10.8) Red Blood Count 3.56 M/UL (4.20-5.40) L Hemoglobin 9.8 G/DL (12.0-16.0) L Hematocrit 31.0 % (37.0-47.0) L Mean Corpuscular Volume 87 FL (80-99) Mean Corpuscular Hemoglobin 27.4 PG (27.0-31.0) Mean Corpuscular Hemoglobin Concent 31.4 G/DL (32.0-36.0) L Red Cell Distribution Width 17.3 % (11.6-14.8) H Platelet Count 268 K/UL (150-450) Mean Platelet Volume 6.6 FL (6.5-10.1) Neutrophils (%) (Auto) 66.9 % (45.0-75.0) Lymphocytes (%) (Auto) 18.3 % (20.0-45.0) L Monocytes (%) (Auto) 7.2 % (1.0-10.0) Eosinophils (%) (Auto) 6.5 % (0.0-3.0) H Basophils (%) (Auto) 1.2 % (0.0-2.0) Sodium Level 139 MMOL/L (136-145) Potassium Level 3.9 MMOL/L (3.5-5.1) Chloride Level 102 MMOL/L (98-107) Carbon Dioxide Level 30 MMOL/L (21-32) Anion Gap 7 mmol/L (5-15) Blood Urea Nitrogen 18 mg/dL (7-18) Creatinine 0.8 MG/DL (0.55-1.30) Estimat Glomerular Filtration Rate mL/min (>60) Glucose Level 94 MG/DL (74-106) Calcium Level 10.7 MG/DL (8.5-10.1) H Current Medications Medications (Trade) Dose Ordered Sig/Charyl Route PRN Reason Start Time Stop Time Status Last Admin Dose Admin Acetaminophen/ Hydrocodone Bitart ([place] 5/325) 1 tab Q4H PRN ORAL Moderate Pain (Pain Scale 4-6) 02/03/19 19:15 02/10/19 19:14 02/07/19 11:56 Al Hydroxide/Mg Hydroxide (Mylanta) 30 ml Q6H PRN ORAL stomach upset 01/30/19 14:30 03/01/19 14:29 02/02/19 22:41 Albuterol/ Ipratropium (Albuterol/ Ipratropium) 3 ml Q4H PRN HHN Shortness of Breath 02/06/19 14:21 02/11/19 14:20 02/06/19 16:06 Alprazolam (Xanax) 0.5 mg Q6H PRN ORAL For Anxiety 02/02/19 12:15 4/19 12:14 02/06/19 18:07 Aspirin (Ecotrin) 81 mg DAILY ORAL 01/22/19 09:00 02/18/19 08:59 02/07/19 07:58 Bisacodyl (Dulcolax) 10 mg BIDPRN PRN RECTAL Constipation 01/23/19 10:00 02/22/19 09:59 01/31/19 15:15 Dextrose (Dextrose 50%) 25 ml Q30M PRN IV Hypoglycemia 01/21/19 19:45 02/16/19 17:32 Dextrose (Dextrose 50%) 50 ml Q30M PRN IV Hypoglycemia 01/21/19 19:45 02/16/19 17:32 Docusate Sodium (Colace) 100 mg TWICE A DAY ORAL 01/23/19 10:00 02/22/19 09:59 02/06/19 18:07 Furosemide (Lasix) 40 mg DAILY ORAL 01/22/19 09:00 02/21/19 08:59 02/07/19 07:58 Heparin Sodium (Porcine) (Heparin 5000 units/ml) 5,000 units EVERY 12 HOURS SUBQ 01/21/19 21:00 02/16/19 20:59 02/07/19 08:00 Ibuprofen (Motrin) 600 mg Q6H PRN ORAL For Pain 01/31/19 11:30 03/02/19 11:29 02/04/19 10:28 Lidocaine (Xylocaine 1% MPF 5ml) 10 ml Q4H PRN HHN cough 01/21/19 19:13 02/18/19 19:12 Mineral Oil (Fleet's Mineral Oil Enema) 133 ml DAILYPRN PRN RECTAL Constipation 01/24/19 09:30 02/23/19 09:29 01/27/19 13:38 Nitroglycerin (Ntg) 0.4 mg Q5M X 3 DOSES PRN SL Prn Chest Pain 01/21/19 19:15 02/16/19 17:33 Ondansetron HCl (Zofran) 4 mg Q6H PRN IVP Nausea & Vomiting 01/21/19 19:13 02/16/19 19:12 01/29/19 22:13 Polyethylene Glycol (Miralax) 17 gm BEDTIME ORAL 01/24/19 21:00 02/23/19 20:59 02/06/19 21:25 Polyethylene Glycol (Miralax) 17 gm DAILYPRN PRN ORAL Constipation 01/31/19 11:30 03/02/19 11:29 01/31/19 11:57 Potassium Chloride (K-Dur) 40 meq DAILY ORAL 01/25/19 11:00 02/24/19 10:59 02/01/19 08:57 Promethazine HCl/ Codeine (Phenergan with Codeine) 5 ml Q6H PRN ORAL cough 01/21/19 19:14 02/16/19 19:13 01/31/19 16:35 Quetiapine Fumarate (SEROquel) 25 mg Q12HR ORAL 01/21/19 21:00 02/17/19 20:59 02/07/19 07:58 Sucralfate (Carafate) 1 gm TID ORAL 01/28/19 01:15 02/27/19 01:14 02/07/19 11:55 Theophylline (Jimmy-Dur) 100 mg EVERY 12 HOURS ORAL 01/21/19 21:00 02/16/19 20:59 02/07/19 07:59 Katt Ken M.D. Feb 07, 2019 14:35
--- NOTE | 2019-02-07 15:27 | NUR ---
*-* INSURANCE *-* UPDATED CLINICALS,REVIEWS HAVE BEEN FAXED TO: [facility] PLEASE FAX THE REVIEW /CLINICAL NCM: COLETTE P- [phone] X Claudia F- [phone]....
[2019-02-07 16:00] VITALS: BP 114/69
--- NOTE | 2019-02-07 19:03 | NUR ---
HAND-OFF: Report given to LEANN ABARCA,PATIENT STABLE.
--- NOTE | 2019-02-07 19:03 | NUR ---
NURSE NOTES:Patient received from [facility].. Patient A/A/OX4 . Patient denies any pain at this time . no sob/ no n/v noted . RFA g22 H/L Patent and intact . patient on purewick in placed . urine out put 200cc Patient ion SPR Mattress . call light within reach . bed in low position at all times . will continue to monitor
[2019-02-07 20:00] VITALS: BP 118/80
[2019-02-08] VITALS: BP 132/70
[2019-02-08 04:00] VITALS: BP 125/76
[2019-02-08 06:37] LABS: BASOPHILS % (AUTO) 2.1 % (0.0-2.0); EOSINOPHILS % (AUTO) 8.2 % (0.0-3.0); HEMOGLOBIN 9.5 G/DL (12.0-16.0); LYMPHOCYTES % (AUTO) 22.5 % (20.0-45.0); MEAN CORPUSCULAR VOLUME 88 FL (80-99); MONOCYTES % (AUTO) 6.7 % (1.0-10.0); NEUTROPHILS % (AUTO) 60.6 % (45.0-75.0); PLATELET COUNT 305 K/UL (150-450); RED BLOOD COUNT 3.54 M/UL (4.20-5.40); WHITE BLOOD COUNT 4.3 K/UL (4.8-10.8)
[2019-02-08 07:07] LABS: ANION GAP 7 mmol/L (5-15); BLOOD UREA NITROGEN 18 mg/dL (7-18); CALCIUM 10.8 MG/DL (8.5-10.1); CARBON DIOXIDE 31 MMOL/L (21-32); CHLORIDE 101 MMOL/L (98-107); CREATININE 0.8 MG/DL (0.55-1.30); POTASSIUM 3.7 MMOL/L (3.5-5.1); SODIUM 139 MMOL/L (136-145)
--- NOTE | 2019-02-08 07:10 | NUR ---
NURSE NOTES:RECEIVED REPORT FR.SERGIA ABARCA,PATIENT AWAKE,A/OX4,2LITERS N/C ON,WAS JUST MEDICATED WITH MOTRIN FOR GENERALIZED PAIN,APPEARS COMFORTABLE,ON SPAR MATTRESS FOR RESOLVING EXCORIATION ON BUTTOCKS,BIATIN FOAM INTACT.AWAITING FOR BED PLACEMENT IN [facility],PATIENT UPDATED.
--- NOTE | 2019-02-08 07:18 | NUR ---
HAND-OFF: Report given to Bouchra Rincon patient in stable condition.
[2019-02-08 08:00] VITALS: BP 118/62
[2019-02-08] MEDS: Docusate 100mg cap ORAL SCH ×2 (08:09→14:29)
[2019-02-08] MEDS: Theophylline ER 100mg ORAL SCH ×2 (08:10→20:11)
[2019-02-08] MEDS: Aspirin EC 81mg tab ORAL SCH (08:10)
[2019-02-08] MEDS: Heparin 5000 units/ml inj SUBQ SCH ×2 (08:11→20:12)
[2019-02-08] MEDS: Sucralfate 1gm tab ORAL SCH ×3 (08:39→16:24)
--- NOTE | 2019-02-08 09:00 | NUR ---
NURSE NOTES:TRIAD CREAM /BIATIN FOAM APPLIED TO POSTERIOR BUTTOCKS SECONDARY TO EXCORIATION,AREAS RESOLVING.ON SPAR MATTRESS,TURNING SCHEDULE MONITOR.
[2019-02-08] MEDS: Furosemide 40mg tab ORAL SCH (09:06)
--- NOTE | 2019-02-08 09:45 | Infectious Diseases Prog Note ---
Assessment/Plan Assessment/Plan Probable Aspiration PNA vs pneumonitis, sp Rx -sp cx PsA (R Levo/Cipro; otherwise S including Aztreonam) Pneumomediastinum-suspected to rupture R side paratracheal bleb -02/06 CXR: Bilateral diffuse interstitial disease. Based on prior imaging studies, probably mostly on the basis of chronic interstitial fibrosis. However , a component of acute interstitial edema also possible, particularly as findings appear slightly more severe than on the prior study.Mild cardiomegaly -01/25 CXR: Suspected interstitial disease. This may be chronic due to fibrosis. Pneumomediastinum. -01/20 CXR: Increasing bilateral parenchymal opacities, likely reflecting increasing edema or infiltrate superimposed on pre-existing chronic opacities. Central mediastinal lucency, likely reflects pneumomediastinum described on recent chest CT -CTA chest: Negative for acute pulmonary embolus or other acute thoracic vascular pathology. Pneumomediastinum. Suspect due to a ruptured right-sided medial bleb. Evidence of extensive chronic pulmonary parenchymal interstitial disease, with areas of honeycombing and bronchiectasis. No definite acute pulmonary parenchymal process. Ectatic main and left main pulmonary arteries, suggestive of pulmonary arterial hypertension. Bullae and subpleural blebs, may be related to the interstitial fibrotic process or could represent COPD changes -CXR: Cardiomegaly. Bilateral extensive interstitial and airspace opacities, slightly increased from but similar in distribution to prior study of 2017. Suspect component of chronic interstitial fibrosis with superimposed acute edema or infiltrates -influenza sc neg Afebrile No leukocytosis AST elevation; improving -HIV ab sc neg -Hep C+, VL neg; cleared infection DM HTN OK CAD CHF cervical radiculopathy CVA asthma COPD /Emphysema sp Bilateral hip replacement correction resident Plan: -Continue to monitor off abx as she is clinically stable -01/25 SP Aztreonam #7 -01/24 SP Azithromycin #5 -01/17 SP Ceftriaxone x1 -f/u cx -monitor CBC/CMP, temperatures -aspiration precautions Subjective Allergies: Coded Allergies: PENICILLINS (Verified Allergy, Unknown, SWELLING EVERYWHERE, EVEN EYES PER PATIENT, 11/24/11) Subjective Afebrile Satting well on 2L NC No leukocytosis Objective Vital Signs Last 24 Hour Vital Signs Date Time Temp Pulse Resp B/P (MAP) Pulse Ox O2 Delivery O2 Flow Rate FiO2 02/08/19 08:00 Nasal Cannula 2.0 Nasal Cannula 2.0 02/08/19 08:00 97.8 74 18 118/62 (80) 98 02/08/19 07:38 97.4 02/08/19 04:00 97.4 84 18 125/76 (92) 100 02/08/19 01:09 Nasal Cannula 2.0 28 02/08/19 01:08 100 Nasal Cannula 2.0 28 02/08/19 01:07 88 20 Nasal Cannula 2.0 28 02/08/19 00:00 97.9 84 18 132/70 (90) 100 02/07/19 21:00 Nasal Cannula 2.0 Nasal Cannula 2.0 02/07/19 20:00 98.4 89 18 118/80 (93) 100 02/07/19 16:00 98.1 85 18 114/69 (84) 98 02/07/19 11:51 98.3 96 20 107/59 (75) 97 Height (Feet): 5 Height (Inches): 6.00 Weight (Pounds): 110 Objective GENERAL: NAD, On 2L NC CARDIOVASCULAR: RRR, S1, S2 LUNGS: Course B/L ABDOMEN: Soft, + BS, ND NEUROLOGIC: A/o X2 The patient moves all extremities, slightly weak. Laboratory Tests Test 02/08/19 05:50 White Blood Count 4.3 K/UL (4.8-10.8) L Red Blood Count 3.54 M/UL (4.20-5.40) L Hemoglobin 9.5 G/DL (12.0-16.0) L Hematocrit 31.0 % (37.0-47.0) L Mean Corpuscular Volume 88 FL (80-99) Mean Corpuscular Hemoglobin 26.9 PG (27.0-31.0) L Mean Corpuscular Hemoglobin Concent 30.7 G/DL (32.0-36.0) L Red Cell Distribution Width 17.0 % (11.6-14.8) H Platelet Count 305 K/UL (150-450) Mean Platelet Volume 6.2 FL (6.5-10.1) L Neutrophils (%) (Auto) 60.6 % (45.0-75.0) Lymphocytes (%) (Auto) 22.5 % (20.0-45.0) Monocytes (%) (Auto) 6.7 % (1.0-10.0) Eosinophils (%) (Auto) 8.2 % (0.0-3.0) H Basophils (%) (Auto) 2.1 % (0.0-2.0) H Sodium Level 139 MMOL/L (136-145) Potassium Level 3.7 MMOL/L (3.5-5.1) Chloride Level 101 MMOL/L (98-107) Carbon Dioxide Level 31 MMOL/L (21-32) Anion Gap 7 mmol/L (5-15) Blood Urea Nitrogen 18 mg/dL (7-18) Creatinine 0.8 MG/DL (0.55-1.30) Estimat Glomerular Filtration Rate mL/min (>60) Glucose Level 92 MG/DL (74-106) Calcium Level 10.8 MG/DL (8.5-10.1) H Current Medications Medications (Trade) Dose Ordered Sig/Charly Route PRN Reason Start Time Stop Time Status Last Admin Dose Admin Acetaminophen/ Hydrocodone Bitart ([place] 5/325) 1 tab Q4H PRN ORAL Moderate Pain (Pain Scale 4-6) 02/03/19 19:15 02/10/19 19:14 02/07/19 18:43 Al Hydroxide/Mg Hydroxide (Mylanta) 30 ml Q6H PRN ORAL stomach upset 01/30/19 14:30 03/01/19 14:29 02/02/19 22:41 Albuterol/ Ipratropium (Albuterol/ Ipratropium) 3 ml Q4H PRN HHN Shortness of Breath 02/06/19 14:21 02/11/19 14:20 02/06/19 16:06 Alprazolam (Xanax) 0.5 mg Q6H PRN ORAL For Anxiety 02/02/19 12:15 02/09/19 12:14 02/06/19 18:07 Aspirin (Ecotrin) 81 mg DAILY ORAL 01/22/19 09:00 02/18/19 08:59 02/08/19 08:10 Bisacodyl (Dulcolax) 10 mg BIDPRN PRN RECTAL Constipation 01/23/19 10:00 02/22/19 09:59 01/31/19 15:15 Dextrose (Dextrose 50%) 25 ml Q30M PRN IV Hypoglycemia 01/21/19 19:45 02/16/19 17:32 Dextrose (Dextrose 50%) 50 ml Q30M PRN IV Hypoglycemia 01/21/19 19:45 02/16/19 17:32 Docusate Sodium (Colace) 100 mg TWICE A DAY ORAL 01/23/19 10:00 02/22/19 09:59 02/08/19 08:09 Furosemide (Lasix) 40 mg DAILY ORAL 01/22/19 09:00 02/21/19 08:59 02/08/19 09:06 Heparin Sodium (Porcine) (Heparin 5000 units/ml) 5,000 units EVERY 12 HOURS SUBQ 01/21/19 21:00 02/16/19 20:59 02/08/19 08:11 Ibuprofen (Motrin) 600 mg Q6H PRN ORAL For Pain 01/31/19 11:30 03/02/19 11:29 02/08/19 07:08 Lidocaine (Xylocaine 1% MPF 5ml) 10 ml Q4H PRN HHN cough 01/21/19 19:13 02/18/19 19:12 Mineral Oil (Fleet's Mineral Oil Enema) 133 ml DAILYPRN PRN RECTAL Constipation 01/24/19 09:30 02/23/19 09:29 01/27/19 13:38 Nitroglycerin (Ntg) 0.4 mg Q5M X 3 DOSES PRN SL Prn Chest Pain 01/21/19 19:15 02/16/19 17:33 Ondansetron HCl (Zofran) 4 mg Q6H PRN IVP Nausea & Vomiting 01/21/19 19:13 02/16/19 19:12 01/29/19 22:13 Polyethylene Glycol (Miralax) 17 gm BEDTIME ORAL 01/24/19 21:00 02/23/19 20:59 02/06/19 21:25 Polyethylene Glycol (Miralax) 17 gm DAILYPRN PRN ORAL Constipation 01/31/19 11:30 03/02/19 11:29 01/31/19 11:57 Potassium Chloride (K-Dur) 40 meq DAILY ORAL 01/25/19 11:00 02/24/19 10:59 02/01/19 08:57 Promethazine HCl/ Codeine (Phenergan with Codeine) 5 ml Q6H PRN ORAL cough 01/21/19 19:14 02/16/19 19:13 01/31/19 16:35 Quetiapine Fumarate (SEROquel) 25 mg Q12HR ORAL 01/21/19 21:00 02/17/19 20:59 02/08/19 08:09 Sucralfate (Carafate) 1 gm TID ORAL 01/28/19 01:15 02/27/19 01:14 02/07/19 07:59 Theophylline (Jimmy-Dur) 100 mg EVERY 12 HOURS ORAL 01/21/19 21:00 02/16/19 20:59 02/08/19 08:10 Marcelo Hooper MD Feb 08, 2019 09:45
--- NOTE | 2019-02-08 11:09 | GI Progress Note ---
Assessment/Plan Problems: (1) Anemia ICD Codes: D64.9 - Anemia, unspecified SNOMED: 786974366 (2) Protein-calorie malnutrition, severe ICD Codes: E43 - Unspecified severe protein-calorie malnutrition SNOMED: 964423635, 891721550, 145298438 (3) Constipation ICD Codes: K59.00 - Constipation, unspecified SNOMED: 46829896 Status: stable Status Narrative Discussed with Dr. Mustafa. Assessment/Plan okay for DC per GI standpoint hep C viral load neg bowel regimen given neg stool ob hold in patient GI procedure fu labs PT evaluation The patient was seen and examined at bedside and all new and available data was reviewed in the patients chart. I agree with the above findings, impression and plan. (Patient seen earlier today. Signature stamp does not reflect patient encounter time.). - Adrian Mustafa MD Subjective Subjective Patient denies any abdominal pain Patient reported bowel movement yesterday Tolerating diet Objective Last 24 Hour Vital Signs Date Time Temp Pulse Resp B/P (MAP) Pulse Ox O2 Delivery O2 Flow Rate FiO2 02/08/19 08:00 Nasal Cannula 2.0 Nasal Cannula 2.0 02/08/19 08:00 97.8 74 18 118/62 (80) 98 02/08/19 07:38 97.4 02/08/19 04:00 97.4 84 18 125/76 (92) 100 02/08/19 01:09 Nasal Cannula 2.0 28 02/08/19 01:08 100 Nasal Cannula 2.0 28 02/08/19 01:07 88 20 Nasal Cannula 2.0 28 02/08/19 00:00 97.9 84 18 132/70 (90) 100 02/07/19 21:00 Nasal Cannula 2.0 Nasal Cannula 2.0 02/07/19 20:00 98.4 89 18 118/80 (93) 100 02/07/19 16:00 98.1 85 18 114/69 (84) 98 02/07/19 11:51 98.3 96 20 107/59 (75) 97 Intake and Output 02/07/19 02/08/19 19:00 07:00 Intake Total 720 ml 520 ml Output Total 400 ml Balance 720 ml 120 ml Intake Oral 720 ml 520 ml Output Urine Total 400 ml # Voids 3 2 # Bowel Movements 2 Laboratory Tests Test 02/08/19 05:50 White Blood Count 4.3 K/UL (4.8-10.8) L Red Blood Count 3.54 M/UL (4.20-5.40) L Hemoglobin 9.5 G/DL (12.0-16.0) L Hematocrit 31.0 % (37.0-47.0) L Mean Corpuscular Volume 88 FL (80-99) Mean Corpuscular Hemoglobin 26.9 PG (27.0-31.0) L Mean Corpuscular Hemoglobin Concent 30.7 G/DL (32.0-36.0) L Red Cell Distribution Width 17.0 % (11.6-14.8) H Platelet Count 305 K/UL (150-450) Mean Platelet Volume 6.2 FL (6.5-10.1) L Neutrophils (%) (Auto) 60.6 % (45.0-75.0) Lymphocytes (%) (Auto) 22.5 % (20.0-45.0) Monocytes (%) (Auto) 6.7 % (1.0-10.0) Eosinophils (%) (Auto) 8.2 % (0.0-3.0) H Basophils (%) (Auto) 2.1 % (0.0-2.0) H Sodium Level 139 MMOL/L (136-145) Potassium Level 3.7 MMOL/L (3.5-5.1) Chloride Level 101 MMOL/L (98-107) Carbon Dioxide Level 31 MMOL/L (21-32) Anion Gap 7 mmol/L (5-15) Blood Urea Nitrogen 18 mg/dL (7-18) Creatinine 0.8 MG/DL (0.55-1.30) Estimat Glomerular Filtration Rate mL/min (>60) Glucose Level 92 MG/DL (74-106) Calcium Level 10.8 MG/DL (8.5-10.1) H Height (Feet): 5 Height (Inches): 6.00 Weight (Pounds): 110 General Appearance: WD/WN, no apparent distress, alert, thin Cardiovascular: normal rate Respiratory/Chest: normal breath sounds, no respiratory distress Abdominal Exam: normal bowel sounds, non tender, soft Extremities: normal range of motion, non-tender Loy Hamilton [employer] MACHINIST Feb 08, 2019 11:09
[2019-02-08 12:00] VITALS: BP 101/61
--- NOTE | 2019-02-08 12:06 | Pulmonology Progress Note ---
Assessment/Plan Problems: (1) Acute respiratory failure (2) COPD exacerbation (3) Pulmonary hypertension (4) Pulmonary fibrosis (5) Elevated troponin (6) Protein-calorie malnutrition, severe (7) Hypertension Assessment/Plan repeat cxr didn't show any new changes respiratory treatment all reviewed still constipated titrate fio2 to sat of 92 monitor BP eating well continue with PT, OT feeling better awaiting dc planning All medications and treatment were reviewed. Subjective ROS Limited/Unobtainable: No HEENT: Repors: no symptoms Allergies: Coded Allergies: PENICILLINS (Verified Allergy, Unknown, SWELLING EVERYWHERE, EVEN EYES PER PATIENT, 11/24/11) Objective Last 24 Hour Vital Signs Date Time Temp Pulse Resp B/P (MAP) Pulse Ox O2 Delivery O2 Flow Rate FiO2 02/08/19 08:00 Nasal Cannula 2.0 Nasal Cannula 2.0 02/08/19 08:00 97.8 74 18 118/62 (80) 98 02/08/19 07:38 97.4 02/08/19 04:00 97.4 84 18 125/76 (92) 100 02/08/19 01:09 Nasal Cannula 2.0 28 02/08/19 01:08 100 Nasal Cannula 2.0 28 02/08/19 01:07 88 20 Nasal Cannula 2.0 28 02/08/19 00:00 97.9 84 18 132/70 (90) 100 02/07/19 21:00 Nasal Cannula 2.0 Nasal Cannula 2.0 02/07/19 20:00 98.4 89 18 118/80 (93) 100 02/07/19 16:00 98.1 85 18 114/69 (84) 98 Intake and Output 02/07/19 02/08/19 19:00 07:00 Intake Total 720 ml 520 ml Output Total 400 ml Balance 720 ml 120 ml Intake Oral 720 ml 520 ml Output Urine Total 400 ml # Voids 3 2 # Bowel Movements 2 Objective General Appearance: cachetic HEENT: normocephalic, atraumatic Respiratory/Chest: chest wall non-tender, normal breath sounds Cardiovascular: normal peripheral pulses, regular rhythm Abdomen: normal bowel sounds, soft, non tender Laboratory Tests 02/08/19 05:50: White Blood Count 4.3L, Red Blood Count 3.54L, Hemoglobin 9.5L, Hematocrit 31.0L , Mean Corpuscular Volume 88, Mean Corpuscular Hemoglobin 26.9L, Mean Corpuscular Hemoglobin Concent 30.7L, Red Cell Distribution Width 17.0H, Platelet Count 305, Mean Platelet Volume 6.2L, Neutrophils (%) (Auto) 60.6, Lymphocytes (%) (Auto) 22.5, Monocytes (%) (Auto) 6.7, Eosinophils (%) (Auto) 8.2H, Basophils (%) (Auto) 2.1H, Sodium Level 139, Potassium Level 3.7, Chloride Level 101, Carbon Dioxide Level 31, Anion Gap 7, Blood Urea Nitrogen 18 , Creatinine 0.8, Estimat Glomerular Filtration Rate , Glucose Level 92, Calcium Level 10.8H Current Medications Medications (Trade) Dose Ordered Sig/Charly Route PRN Reason Start Time Stop Time Status Last Admin Dose Admin Acetaminophen/ Hydrocodone Bitart ([place] 5/325) 1 tab Q4H PRN ORAL Moderate Pain (Pain Scale 4-6) 02/03/19 19:15 02/10/19 19:14 02/07/19 18:43 Al Hydroxide/Mg Hydroxide (Mylanta) 30 ml Q6H PRN ORAL stomach upset 01/30/19 14:30 03/01/19 14:29 02/02/19 22:41 Albuterol/ Ipratropium (Albuterol/ Ipratropium) 3 ml Q4H PRN HHN Shortness of Breath 02/06/19 14:21 02/11/19 14:20 02/06/19 16:06 Alprazolam (Xanax) 0.5 mg Q6H PRN ORAL For Anxiety 02/02/19 12:15 02/09/19 12:14 02/06/19 18:07 Aspirin (Ecotrin) 81 mg DAILY ORAL 01/22/19 09:00 02/18/19 08:59 02/08/19 08:10 Bisacodyl (Dulcolax) 10 mg BIDPRN PRN RECTAL Constipation 01/23/19 10:00 02/22/19 09:59 01/31/19 15:15 Dextrose (Dextrose 50%) 25 ml Q30M PRN IV Hypoglycemia 01/21/19 19:45 02/16/19 17:32 Dextrose (Dextrose 50%) 50 ml Q30M PRN IV Hypoglycemia 01/21/19 19:45 02/16/19 17:32 Docusate Sodium (Colace) 100 mg TWICE A DAY ORAL 01/23/19 10:00 02/22/19 09:59 02/08/19 08:09 Furosemide (Lasix) 40 mg DAILY ORAL 01/22/19 09:00 02/21/19 08:59 02/08/19 09:06 Heparin Sodium (Porcine) (Heparin 5000 units/ml) 5,000 units EVERY 12 HOURS SUBQ 01/21/19 21:00 02/16/19 20:59 02/08/19 08:11 Ibuprofen (Motrin) 600 mg Q6H PRN ORAL For Pain 01/31/19 11:30 03/02/19 11:29 02/08/19 07:08 Lidocaine (Xylocaine 1% MPF 5ml) 10 ml Q4H PRN HHN cough 01/21/19 19:13 02/18/19 19:12 Mineral Oil (Fleet's Mineral Oil Enema) 133 ml DAILYPRN PRN RECTAL Constipation 01/24/19 09:30 02/23/19 09:29 01/27/19 13:38 Nitroglycerin (Ntg) 0.4 mg Q5M X 3 DOSES PRN SL Prn Chest Pain 01/21/19 19:15 02/16/19 17:33 Ondansetron HCl (Zofran) 4 mg Q6H PRN IVP Nausea & Vomiting 01/21/19 19:13 02/16/19 19:12 01/29/19 22:13 Polyethylene Glycol (Miralax) 17 gm BEDTIME ORAL 01/24/19 21:00 02/23/19 20:59 02/06/19 21:25 Polyethylene Glycol (Miralax) 17 gm DAILYPRN PRN ORAL Constipation 01/31/19 11:30 03/02/19 11:29 01/31/19 11:57 Potassium Chloride (K-Dur) 40 meq DAILY ORAL 01/25/19 11:00 02/24/19 10:59 02/01/19 08:57 Promethazine HCl/ Codeine (Phenergan with Codeine) 5 ml Q6H PRN ORAL cough 01/21/19 19:14 02/16/19 19:13 01/31/19 16:35 Quetiapine Fumarate (SEROquel) 25 mg Q12HR ORAL 01/21/19 21:00 02/17/19 20:59 02/08/19 08:09 Sucralfate (Carafate) 1 gm TID ORAL 01/28/19 01:15 02/27/19 01:14 02/07/19 07:59 Theophylline (Jimmy-Dur) 100 mg EVERY 12 HOURS ORAL 01/21/19 21:00 02/16/19 20:59 02/08/19 08:10 Jersey Chadwick MD Feb 08, 2019 12:06
--- NOTE | 2019-02-08 14:57 | NUR ---
*-* INSURANCE *-* UPDATED CLINICALS HAVE BEEN FAXED TO: [facility] PLEASE FAX THE REVIEW /CLINICAL NCM: COLETTE P- [phone] X Claudia F- [phone]....
--- NOTE | 2019-02-08 15:40 | General Progress Note ---
Assessment/Plan Problem List: (1) UTI (urinary tract infection) ICD Codes: N39.0 - Urinary tract infection, site not specified SNOMED: 64928543 (2) Anemia ICD Codes: D64.9 - Anemia, unspecified SNOMED: 424894744 (3) Arthritis ICD Codes: M19.90 - Unspecified osteoarthritis, unspecified site SNOMED: 8462854 (4) Hypertension ICD Codes: I10 - Essential (primary) hypertension SNOMED: 11153248 (5) COPD exacerbation ICD Codes: J44.1 - Chronic obstructive pulmonary disease with (acute) exacerbation SNOMED: 084607942, 528925150, 380578618 (6) CHF exacerbation ICD Codes: I50.9 - Heart failure, unspecified SNOMED: 47340433, 386761712, 456996022 (7) Cervical radiculopathy ICD Codes: M54.12 - Radiculopathy, cervical region SNOMED: 19188702 Status: stable, progressing Assessment/Plan o2 pulm tx abt pain control pt diet sx eval cbc bmp am dc to snf if clear Subjective Constitutional: Reports: weakness Allergies: Coded Allergies: PENICILLINS (Verified Allergy, Unknown, SWELLING EVERYWHERE, EVEN EYES PER PATIENT, 11/24/11) All Systems: reviewed and negative except above Subjective o2nc sleepy in bed Objective Last 24 Hour Vital Signs Date Time Temp Pulse Resp B/P (MAP) Pulse Ox O2 Delivery O2 Flow Rate FiO2 02/08/19 12:00 98.2 87 19 101/61 (74) 99 02/08/19 08:00 Nasal Cannula 2.0 Nasal Cannula 2.0 02/08/19 08:00 97.8 74 18 118/62 (80) 98 02/08/19 07:38 97.4 02/08/19 04:00 97.4 84 18 125/76 (92) 100 02/08/19 01:09 Nasal Cannula 2.0 28 02/08/19 01:08 100 Nasal Cannula 2.0 28 02/08/19 01:07 88 20 Nasal Cannula 2.0 28 02/08/19 00:00 97.9 84 18 132/70 (90) 100 02/07/19 21:00 Nasal Cannula 2.0 Nasal Cannula 2.0 02/07/19 20:00 98.4 89 18 118/80 (93) 100 02/07/19 16:00 98.1 85 18 114/69 (84) 98 Intake and Output 02/07/19 02/08/19 19:00 07:00 Intake Total 720 ml 520 ml Output Total 400 ml Balance 720 ml 120 ml Intake Oral 720 ml 520 ml Output Urine Total 400 ml # Voids 3 2 # Bowel Movements 2 Laboratory Tests 02/08/19 05:50: White Blood Count 4.3L, Red Blood Count 3.54L, Hemoglobin 9.5L, Hematocrit 31.0L , Mean Corpuscular Volume 88, Mean Corpuscular Hemoglobin 26.9L, Mean Corpuscular Hemoglobin Concent 30.7L, Red Cell Distribution Width 17.0H, Platelet Count 305, Mean Platelet Volume 6.2L, Neutrophils (%) (Auto) 60.6, Lymphocytes (%) (Auto) 22.5, Monocytes (%) (Auto) 6.7, Eosinophils (%) (Auto) 8.2H, Basophils (%) (Auto) 2.1H, Sodium Level 139, Potassium Level 3.7, Chloride Level 101, Carbon Dioxide Level 31, Anion Gap 7, Blood Urea Nitrogen 18 , Creatinine 0.8, Estimat Glomerular Filtration Rate , Glucose Level 92, Calcium Level 10.8H Height (Feet): 5 Height (Inches): 6.00 Weight (Pounds): 110 General Appearance: lethargic EENT: normal ENT inspection Neck: normal alignment Cardiovascular: normal peripheral pulses, normal rate, regular rhythm Respiratory/Chest: chest wall non-tender, decreased breath sounds Abdomen: normal bowel sounds, non tender, soft Extremities: normal inspection Edema: no edema noted Arm (L), no edema noted Arm (R), no edema noted Leg (L), no edema noted Leg (R), no edema noted Pedal (L), no edema noted Pedal (R), no edema noted Generalized Neurologic: responsive, motor weakness Skin: normal pigmentation, warm/dry Rio Lema DO Feb 08, 2019 15:40
[2019-02-08 16:00] VITALS: BP 105/67
--- NOTE | 2019-02-08 16:00 | Cardiac Electrophysiology PN ---
Assessment/Plan Assessment/Plan 1. Type 2 NSTEMI. No CP or SOB. EF normal . ECG incomplete LBBB, LVH. On aspirin . Keep off Beta ehsan for asthma 2. CHF due to diastolic dysfunction with BNP >1500. On Lasix 40 mg po daily. 3. Hypertension. On Lasix 4. COPD exacerbation and severe pulmonary HTN On Theophylline 100 bid 5. Anemia. 6. UTI 8. Osteoarthritis. 9. Cervical radiculopathy. 10. Constipation, resolved DW RN Subjective Subjective Feeling better on Oxygen. Had BM yesterday and today Objective Last 24 Hour Vital Signs Date Time Temp Pulse Resp B/P (MAP) Pulse Ox O2 Delivery O2 Flow Rate FiO2 02/08/19 12:00 98.2 87 19 101/61 (74) 99 02/08/19 08:00 Nasal Cannula 2.0 Nasal Cannula 2.0 02/08/19 08:00 97.8 74 18 118/62 (80) 98 02/08/19 07:38 97.4 02/08/19 04:00 97.4 84 18 125/76 (92) 100 02/08/19 01:09 Nasal Cannula 2.0 28 02/08/19 01:08 100 Nasal Cannula 2.0 28 02/08/19 01:07 88 20 Nasal Cannula 2.0 28 02/08/19 00:00 97.9 84 18 132/70 (90) 100 02/07/19 21:00 Nasal Cannula 2.0 Nasal Cannula 2.0 02/07/19 20:00 98.4 89 18 118/80 (93) 100 02/07/19 16:00 98.1 85 18 114/69 (84) 98 Intake and Output 02/07/19 02/08/19 19:00 07:00 Intake Total 720 ml 520 ml Output Total 400 ml Balance 720 ml 120 ml Intake Oral 720 ml 520 ml Output Urine Total 400 ml # Voids 3 2 # Bowel Movements 2 Laboratory Tests Test 02/08/19 05:50 White Blood Count 4.3 K/UL (4.8-10.8) L Red Blood Count 3.54 M/UL (4.20-5.40) L Hemoglobin 9.5 G/DL (12.0-16.0) L Hematocrit 31.0 % (37.0-47.0) L Mean Corpuscular Volume 88 FL (80-99) Mean Corpuscular Hemoglobin 26.9 PG (27.0-31.0) L Mean Corpuscular Hemoglobin Concent 30.7 G/DL (32.0-36.0) L Red Cell Distribution Width 17.0 % (11.6-14.8) H Platelet Count 305 K/UL (150-450) Mean Platelet Volume 6.2 FL (6.5-10.1) L Neutrophils (%) (Auto) 60.6 % (45.0-75.0) Lymphocytes (%) (Auto) 22.5 % (20.0-45.0) Monocytes (%) (Auto) 6.7 % (1.0-10.0) Eosinophils (%) (Auto) 8.2 % (0.0-3.0) H Basophils (%) (Auto) 2.1 % (0.0-2.0) H Sodium Level 139 MMOL/L (136-145) Potassium Level 3.7 MMOL/L (3.5-5.1) Chloride Level 101 MMOL/L (98-107) Carbon Dioxide Level 31 MMOL/L (21-32) Anion Gap 7 mmol/L (5-15) Blood Urea Nitrogen 18 mg/dL (7-18) Creatinine 0.8 MG/DL (0.55-1.30) Estimat Glomerular Filtration Rate mL/min (>60) Glucose Level 92 MG/DL (74-106) Calcium Level 10.8 MG/DL (8.5-10.1) H Objective HEENT: No JVD. Respiratory/Chest: Clear Cardiovascular/Chest: Normal S1, S2. normal rate, regular rhythm Abdomen: normal bowel sounds, non tender, Extremities: No edema Renzo Burgess MD Feb 08, 2019 16:00
--- NOTE | 2019-02-08 16:17 | NUR ---
P.T WEEKLY PROGRESS NOTES: PATIENT CONTINUE TO DEMONSTRATED SLOW PROGRESS IN THERAPY DUE TO LIMITED PARTICIPATION SECONDARY TO PANIC ATTACK/ANXIETY TRIGGERED BY MOBILITY . ASSISTANCE FLUCTUATES FROM SBA-MIN X 1 FOR BED MOBILITY AND TRANSFER ACTIVITIES DEPENDING ON LEVEL OF ANXIETY ENDURANCE AND MOTIVATION . PATIENT ABLE TO AMBULATE 15-25 FEET USING THE FWW WITH CGA/SBA A X 1. PATIENT WILL CONTINUE TO BENEFIT FROM SKILLED P.T SERVICES TO INCREASE ACTIVITY TOLERANCE ,SAFETY AND MOBILITY INDEPENDENCE. WILL CONTINUE WITH POC WITH PROGRESSION OF ACTIVITIES TOLERATED. RECOMMEND RETURN TO SNF FOR FURTHER REHAB OR HOME WITH FAMILY ASSIST AND HOME P.T FOLLOW UP.
[2019-02-08] MEDS: ALPRAZolam 0.5mg tab ORAL PRN (18:47)
--- NOTE | 2019-02-08 19:22 | NUR ---
HAND-OFF: Report given to RADHA SAVAGE.PATIENT STABLE.
[2019-02-08 20:00] VITALS: BP 106/65
[2019-02-08] MEDS: Miralax 17gm pkt ORAL SCH (20:13)
[2019-02-09] VITALS: BP 107/76
[2019-02-09 04:00] VITALS: BP 112/63
--- NOTE | 2019-02-09 04:30 | NUR ---
NURSE NOTES: Re-applied triad cream on buttock area.
[2019-02-09 06:57] LABS: ANION GAP 9 mmol/L (5-15); BLOOD UREA NITROGEN 24 mg/dL (7-18); CALCIUM 10.4 MG/DL (8.5-10.1); CARBON DIOXIDE 30 MMOL/L (21-32); CHLORIDE 100 MMOL/L (98-107); CREATININE 0.8 MG/DL (0.55-1.30); POTASSIUM 3.6 MMOL/L (3.5-5.1); SODIUM 139 MMOL/L (136-145)
[2019-02-09 06:59] LABS: BASOPHILS % (AUTO) 1.3 % (0.0-2.0); EOSINOPHILS % (AUTO) 8.6 % (0.0-3.0); HEMATOCRIT 30.4 % (37.0-47.0); HEMOGLOBIN 9.5 G/DL (12.0-16.0); LYMPHOCYTES % (AUTO) 23.1 % (20.0-45.0); MEAN CORPUSCULAR VOLUME 87 FL (80-99); MONOCYTES % (AUTO) 6.3 % (1.0-10.0); NEUTROPHILS % (AUTO) 60.7 % (45.0-75.0); PLATELET COUNT 304 K/UL (150-450); RED BLOOD COUNT 3.47 M/UL (4.20-5.40); RED CELL DISTRIBUTION WIDTH 17.2 % (11.6-14.8)
--- NOTE | 2019-02-09 07:30 | NUR ---
HAND-OFF: Report given to HUSSEIN Astorga. Pt in stable condition.
[2019-02-09 08:00] VITALS: BP 97/60
[2019-02-09] MEDS: Theophylline ER 100mg ORAL SCH (09:24)
[2019-02-09] MEDS: Sucralfate 1gm tab ORAL SCH ×2 (09:24→12:30)
[2019-02-09] MEDS: Furosemide 40mg tab ORAL SCH (09:24)
[2019-02-09] MEDS: Docusate 100mg cap ORAL SCH (09:24)
[2019-02-09] MEDS: Aspirin EC 81mg tab ORAL SCH (09:25)
[2019-02-09] MEDS: Heparin 5000 units/ml inj SUBQ SCH (09:26)
[2019-02-09] MEDS: HYDROcodone/Acetamin 5/325 tab ORAL PRN (09:29)
[2019-02-09] MEDS: ALPRAZolam 0.5mg tab ORAL PRN (09:29)
--- NOTE | 2019-02-09 10:38 | Infectious Diseases Prog Note ---
Assessment/Plan Assessment/Plan Probable Aspiration PNA vs pneumonitis, sp Rx -sp cx PsA (R Levo/Cipro; otherwise S including Aztreonam) Pneumomediastinum-suspected to rupture R side paratracheal bleb -02/06 CXR: Bilateral diffuse interstitial disease. Based on prior imaging studies, probably mostly on the basis of chronic interstitial fibrosis. However , a component of acute interstitial edema also possible, particularly as findings appear slightly more severe than on the prior study.Mild cardiomegaly -01/25 CXR: Suspected interstitial disease. This may be chronic due to fibrosis. Pneumomediastinum. -01/20 CXR: Increasing bilateral parenchymal opacities, likely reflecting increasing edema or infiltrate superimposed on pre-existing chronic opacities. Central mediastinal lucency, likely reflects pneumomediastinum described on recent chest CT -CTA chest: Negative for acute pulmonary embolus or other acute thoracic vascular pathology. Pneumomediastinum. Suspect due to a ruptured right-sided medial bleb. Evidence of extensive chronic pulmonary parenchymal interstitial disease, with areas of honeycombing and bronchiectasis. No definite acute pulmonary parenchymal process. Ectatic main and left main pulmonary arteries, suggestive of pulmonary arterial hypertension. Bullae and subpleural blebs, may be related to the interstitial fibrotic process or could represent COPD changes -CXR: Cardiomegaly. Bilateral extensive interstitial and airspace opacities, slightly increased from but similar in distribution to prior study of 2017. Suspect component of chronic interstitial fibrosis with superimposed acute edema or infiltrates -influenza sc neg Afebrile No leukocytosis AST elevation; improving -HIV ab sc neg -Hep C+, VL neg; cleared infection DM HTN [place] CAD CHF cervical radiculopathy CVA asthma COPD /Emphysema sp Bilateral hip replacement snf resident Plan: -Monitor off abx as she is clinically stable -01/25 SP Aztreonam #7 -01/24 SP Azithromycin #5 -01/17 SP Ceftriaxone x1 -f/u cx -monitor CBC/CMP, temperatures -aspiration precautions Subjective Allergies: Coded Allergies: PENICILLINS (Verified Allergy, Unknown, SWELLING EVERYWHERE, EVEN EYES PER PATIENT, 11/24/11) Subjective JAMEL Afebrile Satting well on 2L NC No leukocytosis Objective Vital Signs Last 24 Hour Vital Signs Date Time Temp Pulse Resp B/P (MAP) Pulse Ox O2 Delivery O2 Flow Rate FiO2 02/09/19 09:59 98.6 02/09/19 08:12 Nasal Cannula 2.0 Nasal Cannula 2.0 02/09/19 08:00 98.6 90 17 97/60 (72) 99 02/09/19 04:00 98.1 89 20 112/63 (79) 99 02/09/19 00:00 97.4 87 20 107/76 (86) 100 02/08/19 21:24 80 18 Nasal Cannula 2.0 28 02/08/19 21:24 98 Nasal Cannula 2.0 28 02/08/19 21:24 Nasal Cannula 2.0 28 02/08/19 21:00 Nasal Cannula 2.0 Nasal Cannula 2.0 02/08/19 20:00 98.7 90 20 106/65 (79) 98 02/08/19 16:00 97.8 92 17 105/67 (80) 99 02/08/19 12:00 98.2 87 19 101/61 (74) 99 Height (Feet): 5 Height (Inches): 6.00 Weight (Pounds): 110 Objective GENERAL: On 2L NC, comfortable CARDIOVASCULAR: RRR, S1, S2 LUNGS: Course B/L ABDOMEN: Soft, + BS, ND NEUROLOGIC: A/o X2 The patient moves all extremities, slightly weak. Laboratory Tests Test 02/09/19 05:05 White Blood Count 5.0 K/UL (4.8-10.8) Red Blood Count 3.47 M/UL (4.20-5.40) L Hemoglobin 9.5 G/DL (12.0-16.0) L Hematocrit 30.4 % (37.0-47.0) L Mean Corpuscular Volume 87 FL (80-99) Mean Corpuscular Hemoglobin 27.5 PG (27.0-31.0) Mean Corpuscular Hemoglobin Concent 31.4 G/DL (32.0-36.0) L Red Cell Distribution Width 17.2 % (11.6-14.8) H Platelet Count 304 K/UL (150-450) Mean Platelet Volume 5.6 FL (6.5-10.1) L Neutrophils (%) (Auto) 60.7 % (45.0-75.0) Lymphocytes (%) (Auto) 23.1 % (20.0-45.0) Monocytes (%) (Auto) 6.3 % (1.0-10.0) Eosinophils (%) (Auto) 8.6 % (0.0-3.0) H Basophils (%) (Auto) 1.3 % (0.0-2.0) Sodium Level 139 MMOL/L (136-145) Potassium Level 3.6 MMOL/L (3.5-5.1) Chloride Level 100 MMOL/L (98-107) Carbon Dioxide Level 30 MMOL/L (21-32) Anion Gap 9 mmol/L (5-15) Blood Urea Nitrogen 24 mg/dL (7-18) H Creatinine 0.8 MG/DL (0.55-1.30) Estimat Glomerular Filtration Rate mL/min (>60) Glucose Level 86 MG/DL (74-106) Calcium Level 10.4 MG/DL (8.5-10.1) H Current Medications Medications (Trade) Dose Ordered Sig/Charly Route PRN Reason Start Time Stop Time Status Last Admin Dose Admin Acetaminophen/ Hydrocodone Bitart ([place] 5/325) 1 tab Q4H PRN ORAL Moderate Pain (Pain Scale 4-6) 02/03/19 19:15 02/10/19 19:14 02/09/19 09:29 Al Hydroxide/Mg Hydroxide (Mylanta) 30 ml Q6H PRN ORAL stomach upset 01/30/19 14:30 03/01/19 14:29 02/02/19 22:41 Albuterol/ Ipratropium (Albuterol/ Ipratropium) 3 ml Q4H PRN HHN Shortness of Breath 02/06/19 14:21 02/11/19 14:20 02/06/19 16:06 Alprazolam (Xanax) 0.5 mg Q6H PRN ORAL For Anxiety 02/02/19 12:15 02/09/19 12:14 02/09/19 09:29 Aspirin (Ecotrin) 81 mg DAILY ORAL 01/22/19 09:00 02/18/19 08:59 02/09/19 09:25 Bisacodyl (Dulcolax) 10 mg BIDPRN PRN RECTAL Constipation 01/23/19 10:00 02/22/19 09:59 01/31/19 15:15 Dextrose (Dextrose 50%) 25 ml Q30M PRN IV Hypoglycemia 01/21/19 19:45 02/16/19 17:32 Dextrose (Dextrose 50%) 50 ml Q30M PRN IV Hypoglycemia 01/21/19 19:45 02/16/19 17:32 Docusate Sodium (Colace) 100 mg TWICE A DAY ORAL 01/23/19 10:00 02/22/19 09:59 02/09/19 09:24 Furosemide (Lasix) 40 mg DAILY ORAL 01/22/19 09:00 02/21/19 08:59 02/09/19 09:24 Heparin Sodium (Porcine) (Heparin 5000 units/ml) 5,000 units EVERY 12 HOURS SUBQ 01/21/19 21:00 02/16/19 20:59 02/09/19 09:26 Ibuprofen (Motrin) 600 mg Q6H PRN ORAL For Pain 01/31/19 11:30 03/02/19 11:29 02/08/19 18:47 Lidocaine (Xylocaine 1% MPF 5ml) 10 ml Q4H PRN HHN cough 01/21/19 19:13 02/18/19 19:12 Mineral Oil (Fleet's Mineral Oil Enema) 133 ml DAILYPRN PRN RECTAL Constipation 01/24/19 09:30 02/23/19 09:29 01/27/19 13:38 Nitroglycerin (Ntg) 0.4 mg Q5M X 3 DOSES PRN SL Prn Chest Pain 01/21/19 19:15 02/16/19 17:33 Ondansetron HCl (Zofran) 4 mg Q6H PRN IVP Nausea & Vomiting 01/21/19 19:13 02/16/19 19:12 01/29/19 22:13 Polyethylene Glycol (Miralax) 17 gm BEDTIME ORAL 01/24/19 21:00 02/23/19 20:59 02/06/19 21:25 Polyethylene Glycol (Miralax) 17 gm DAILYPRN PRN ORAL Constipation 01/31/19 11:30 03/02/19 11:29 01/31/19 11:57 Potassium Chloride (K-Dur) 40 meq DAILY ORAL 01/25/19 11:00 02/24/19 10:59 02/01/19 08:57 Promethazine HCl/ Codeine (Phenergan with Codeine) 5 ml Q6H PRN ORAL cough 01/21/19 19:14 02/16/19 19:13 01/31/19 16:35 Quetiapine Fumarate (SEROquel) 25 mg Q12HR ORAL 01/21/19 21:00 02/17/19 20:59 02/09/19 09:24 Sucralfate (Carafate) 1 gm TID ORAL 01/28/19 01:15 02/27/19 01:14 02/09/19 09:24 Theophylline (Jimmy-Dur) 100 mg EVERY 12 HOURS ORAL 01/21/19 21:00 02/16/19 20:59 02/09/19 09:24 Marcelo Hooper MD Feb 09, 2019 10:38
--- NOTE | 2019-02-09 10:39 | NUR ---
ST NOTE: D/C SUMMARY: PT TOLERATED CURRENT DIET WITHOUT OVERT S/S OF ASPIRATION. PT PARTIALLY MET PO INTAKE GOALS. NURSING STAFF MET ASPIRATION PRECAUTIONS. NO FURTHER SKILLED ST SERVICE IS REQUIRED AT THIS TIME. PLEASE REFER PT TO [facility] IF ANY CHANGE OF CONDITIONS. D/C FROM SKILLED ST SERVICE.
--- NOTE | 2019-02-09 11:04 | GI Progress Note ---
Assessment/Plan Problems: (1) Anemia ICD Codes: D64.9 - Anemia, unspecified SNOMED: 890317937 (2) Protein-calorie malnutrition, severe ICD Codes: E43 - Unspecified severe protein-calorie malnutrition SNOMED: 293377507, 559265286, 596513738 (3) Constipation ICD Codes: K59.00 - Constipation, unspecified SNOMED: 60548322 Status: stable Status Narrative Discussed with Dr. Mustafa Assessment/Plan okay for DC per GI standpoint hep C viral load neg bowel regimen given neg stool ob hold in patient GI procedure fu labs PT evaluation The patient was seen and examined at bedside and all new and available data was reviewed in the patients chart. I agree with the above findings, impression and plan. (Patient seen earlier today. Signature stamp does not reflect patient encounter time.). - Adrian Mustafa MD Subjective Subjective Patient denies any abdominal pain Tolerating diet Objective Last 24 Hour Vital Signs Date Time Temp Pulse Resp B/P (MAP) Pulse Ox O2 Delivery O2 Flow Rate FiO2 02/09/19 09:59 98.6 02/09/19 08:12 Nasal Cannula 2.0 Nasal Cannula 2.0 02/09/19 08:00 98.6 90 17 97/60 (72) 99 02/09/19 04:00 98.1 89 20 112/63 (79) 99 02/09/19 00:00 97.4 87 20 107/76 (86) 100 02/08/19 21:24 80 18 Nasal Cannula 2.0 28 02/08/19 21:24 98 Nasal Cannula 2.0 28 02/08/19 21:24 Nasal Cannula 2.0 28 02/08/19 21:00 Nasal Cannula 2.0 Nasal Cannula 2.0 02/08/19 20:00 98.7 90 20 106/65 (79) 98 02/08/19 16:00 97.8 92 17 105/67 (80) 99 02/08/19 12:00 98.2 87 19 101/61 (74) 99 Intake and Output 02/08/19 02/09/19 19:00 07:00 Intake Total 400 ml 240 ml Output Total 500 ml 200 ml Balance -100 ml 40 ml Intake Oral 400 ml 240 ml Output Urine Total 500 ml 200 ml Laboratory Tests Test 02/09/19 05:05 White Blood Count 5.0 K/UL (4.8-10.8) Red Blood Count 3.47 M/UL (4.20-5.40) L Hemoglobin 9.5 G/DL (12.0-16.0) L Hematocrit 30.4 % (37.0-47.0) L Mean Corpuscular Volume 87 FL (80-99) Mean Corpuscular Hemoglobin 27.5 PG (27.0-31.0) Mean Corpuscular Hemoglobin Concent 31.4 G/DL (32.0-36.0) L Red Cell Distribution Width 17.2 % (11.6-14.8) H Platelet Count 304 K/UL (150-450) Mean Platelet Volume 5.6 FL (6.5-10.1) L Neutrophils (%) (Auto) 60.7 % (45.0-75.0) Lymphocytes (%) (Auto) 23.1 % (20.0-45.0) Monocytes (%) (Auto) 6.3 % (1.0-10.0) Eosinophils (%) (Auto) 8.6 % (0.0-3.0) H Basophils (%) (Auto) 1.3 % (0.0-2.0) Sodium Level 139 MMOL/L (136-145) Potassium Level 3.6 MMOL/L (3.5-5.1) Chloride Level 100 MMOL/L (98-107) Carbon Dioxide Level 30 MMOL/L (21-32) Anion Gap 9 mmol/L (5-15) Blood Urea Nitrogen 24 mg/dL (7-18) H Creatinine 0.8 MG/DL (0.55-1.30) Estimat Glomerular Filtration Rate mL/min (>60) Glucose Level 86 MG/DL (74-106) Calcium Level 10.4 MG/DL (8.5-10.1) H Height (Feet): 5 Height (Inches): 6.00 Weight (Pounds): 110 General Appearance: WD/WN, no apparent distress, alert Cardiovascular: normal rate Respiratory/Chest: normal breath sounds, no respiratory distress Abdominal Exam: normal bowel sounds, non tender, soft Extremities: normal range of motion, non-tender Loy Hamilton ANCHOR OPERATOR Feb 09, 2019 11:03
--- NOTE | 2019-02-09 11:38 | NUR ---
DISCHARGE PLANNING PATIENT HAS BEEN ACCEPTED AT [facility] [address] [facility] [address] T: [phone] FOR NURSE TO NURSE REPORT [facility] HAS BEEN ARRANGED FOR 1330 [employer] SERV[employer] ENGINEER LEFT VMM FOR DAUGHTERERI Addendum: 02/10/19 at 1109 by ELIESER OCHOA CM [facility]
[2019-02-09 12:00] VITALS: BP 108/72
--- NOTE | 2019-02-09 12:41 | Pulmonology Progress Note ---
Assessment/Plan Problems: (1) Acute respiratory failure (2) COPD exacerbation (3) Pulmonary hypertension (4) Pulmonary fibrosis (5) Elevated troponin (6) Protein-calorie malnutrition, severe (7) Hypertension Assessment/Plan doing better respiratory treatment all reviewed still constipated titrate fio2 to sat of 92 monitor BP eating well continue with PT, OT feeling better awaiting dc planning All medications and treatment were reviewed. going to [facility] Subjective ROS Limited/Unobtainable: No Constitutional: Reports: no symptoms HEENT: Repors: no symptoms Allergies: Coded Allergies: PENICILLINS (Verified Allergy, Unknown, SWELLING EVERYWHERE, EVEN EYES PER PATIENT, 11/24/11) Objective Last 24 Hour Vital Signs Date Time Temp Pulse Resp B/P (MAP) Pulse Ox O2 Delivery O2 Flow Rate FiO2 02/09/19 09:59 98.6 02/09/19 08:12 Nasal Cannula 2.0 Nasal Cannula 2.0 02/09/19 08:00 98.6 90 17 97/60 (72) 99 02/09/19 04:00 98.1 89 20 112/63 (79) 99 02/09/19 00:00 97.4 87 20 107/76 (86) 100 02/08/19 21:24 80 18 Nasal Cannula 2.0 28 02/08/19 21:24 98 Nasal Cannula 2.0 28 02/08/19 21:24 Nasal Cannula 2.0 28 02/08/19 21:00 Nasal Cannula 2.0 Nasal Cannula 2.0 02/08/19 20:00 98.7 90 20 106/65 (79) 98 02/08/19 16:00 97.8 92 17 105/67 (80) 99 Intake and Output 02/08/19 02/09/19 19:00 07:00 Intake Total 400 ml 240 ml Output Total 500 ml 200 ml Balance -100 ml 40 ml Intake Oral 400 ml 240 ml Output Urine Total 500 ml 200 ml Objective General Appearance: cachetic HEENT: normocephalic, atraumatic Respiratory/Chest: chest wall non-tender, normal breath sounds Cardiovascular: normal peripheral pulses, regular rhythm Abdomen: normal bowel sounds, soft, non tender Laboratory Tests 02/09/19 05:05: White Blood Count 5.0, Red Blood Count 3.47L, Hemoglobin 9.5L, Hematocrit 30.4L , Mean Corpuscular Volume 87, Mean Corpuscular Hemoglobin 27.5, Mean Corpuscular Hemoglobin Concent 31.4L, Red Cell Distribution Width 17.2H, Platelet Count 304, Mean Platelet Volume 5.6L, Neutrophils (%) (Auto) 60.7, Lymphocytes (%) (Auto) 23.1, Monocytes (%) (Auto) 6.3, Eosinophils (%) (Auto) 8.6H, Basophils (%) (Auto) 1.3, Sodium Level 139, Potassium Level 3.6, Chloride Level 100, Carbon Dioxide Level 30, Anion Gap 9, Blood Urea Nitrogen 24H, Creatinine 0.8, Estimat Glomerular Filtration Rate , Glucose Level 86, Calcium Level 10.4H Current Medications Medications (Trade) Dose Ordered Sig/Charly Route PRN Reason Start Time Stop Time Status Last Admin Dose Admin Acetaminophen/ Hydrocodone Bitart ([place] 5/325) 1 tab Q4H PRN ORAL Moderate Pain (Pain Scale 4-6) 02/03/19 19:15 02/10/19 19:14 02/09/19 09:29 Al Hydroxide/Mg Hydroxide (Mylanta) 30 ml Q6H PRN ORAL stomach upset 01/30/19 14:30 03/01/19 14:29 02/02/19 22:41 Albuterol/ Ipratropium (Albuterol/ Ipratropium) 3 ml Q4H PRN HHN Shortness of Breath 02/06/19 14:21 02/11/19 14:20 02/06/19 16:06 Aspirin (Ecotrin) 81 mg DAILY ORAL 01/22/19 09:00 02/18/19 08:59 02/09/19 09:25 Bisacodyl (Dulcolax) 10 mg BIDPRN PRN RECTAL Constipation 01/23/19 10:00 02/22/19 09:59 01/31/19 15:15 Dextrose (Dextrose 50%) 25 ml Q30M PRN IV Hypoglycemia 01/21/19 19:45 02/16/19 17:32 Dextrose (Dextrose 50%) 50 ml Q30M PRN IV Hypoglycemia 01/21/19 19:45 02/16/19 17:32 Docusate Sodium (Colace) 100 mg TWICE A DAY ORAL 01/23/19 10:00 02/22/19 09:59 02/09/19 09:24 Furosemide (Lasix) 40 mg DAILY ORAL 01/22/19 09:00 02/21/19 08:59 02/09/19 09:24 Heparin Sodium (Porcine) (Heparin 5000 units/ml) 5,000 units EVERY 12 HOURS SUBQ 01/21/19 21:00 02/16/19 20:59 02/09/19 09:26 Ibuprofen (Motrin) 600 mg Q6H PRN ORAL For Pain 01/31/19 11:30 03/02/19 11:29 02/08/19 18:47 Lidocaine (Xylocaine 1% MPF 5ml) 10 ml Q4H PRN HHN cough 01/21/19 19:13 02/18/19 19:12 Mineral Oil (Fleet's Mineral Oil Enema) 133 ml DAILYPRN PRN RECTAL Constipation 01/24/19 09:30 02/23/19 09:29 01/27/19 13:38 Nitroglycerin (Ntg) 0.4 mg Q5M X 3 DOSES PRN SL Prn Chest Pain 01/21/19 19:15 02/16/19 17:33 Ondansetron HCl (Zofran) 4 mg Q6H PRN IVP Nausea & Vomiting 01/21/19 19:13 02/16/19 19:12 01/29/19 22:13 Polyethylene Glycol (Miralax) 17 gm BEDTIME ORAL 01/24/19 21:00 02/23/19 20:59 02/06/19 21:25 Polyethylene Glycol (Miralax) 17 gm DAILYPRN PRN ORAL Constipation 01/31/19 11:30 03/02/19 11:29 01/31/19 11:57 Potassium Chloride (K-Dur) 40 meq DAILY ORAL 01/25/19 11:00 02/24/19 10:59 02/01/19 08:57 Promethazine HCl/ Codeine (Phenergan with Codeine) 5 ml Q6H PRN ORAL cough 01/21/19 19:14 02/16/19 19:13 01/31/19 16:35 Quetiapine Fumarate (SEROquel) 25 mg Q12HR ORAL 01/21/19 21:00 02/17/19 20:59 02/09/19 09:24 Sucralfate (Carafate) 1 gm TID ORAL 01/28/19 01:15 02/27/19 01:14 02/09/19 09:24 Theophylline (Jimmy-Dur) 100 mg EVERY 12 HOURS ORAL 01/21/19 21:00 02/16/19 20:59 02/09/19 09:24 Jersey Chadwick MD Feb 09, 2019 12:41
[2019-02-09 13:02] VITALS: BP 108/72
--- NOTE | 2019-02-09 13:04 | General Progress Note ---
Assessment/Plan Problem List: (1) UTI (urinary tract infection) ICD Codes: N39.0 - Urinary tract infection, site not specified SNOMED: 31613001 (2) Anemia ICD Codes: D64.9 - Anemia, unspecified SNOMED: 481331181 (3) Arthritis ICD Codes: M19.90 - Unspecified osteoarthritis, unspecified site SNOMED: 9428731 (4) Hypertension ICD Codes: I10 - Essential (primary) hypertension SNOMED: 31295327 (5) COPD exacerbation ICD Codes: J44.1 - Chronic obstructive pulmonary disease with (acute) exacerbation SNOMED: 691903788, 023650754, 706271580 (6) CHF exacerbation ICD Codes: I50.9 - Heart failure, unspecified SNOMED: 79438122, 000234129, 585628764 (7) Cervical radiculopathy ICD Codes: M54.12 - Radiculopathy, cervical region SNOMED: 12618473 Status: stable, progressing Assessment/Plan o2 pulm tx abt pain control pt diet sx eval cbc bmp am dc to snf if clear Subjective Constitutional: Reports: weakness Allergies: Coded Allergies: PENICILLINS (Verified Allergy, Unknown, SWELLING EVERYWHERE, EVEN EYES PER PATIENT, 11/24/11) All Systems: reviewed and negative except above Subjective o2nc sleepy in bed Objective Last 24 Hour Vital Signs Date Time Temp Pulse Resp B/P (MAP) Pulse Ox O2 Delivery O2 Flow Rate FiO2 02/09/19 13:02 98.3 78 17 108/72 (84) 02/09/19 09:59 98.6 02/09/19 08:12 Nasal Cannula 2.0 Nasal Cannula 2.0 02/09/19 08:00 98.6 90 17 97/60 (72) 99 02/09/19 04:00 98.1 89 20 112/63 (79) 99 02/09/19 00:00 97.4 87 20 107/76 (86) 100 02/08/19 21:24 80 18 Nasal Cannula 2.0 28 02/08/19 21:24 98 Nasal Cannula 2.0 28 02/08/19 21:24 Nasal Cannula 2.0 28 02/08/19 21:00 Nasal Cannula 2.0 Nasal Cannula 2.0 02/08/19 20:00 98.7 90 20 106/65 (79) 98 02/08/19 16:00 97.8 92 17 105/67 (80) 99 Intake and Output 02/08/19 02/09/19 19:00 07:00 Intake Total 400 ml 240 ml Output Total 500 ml 200 ml Balance -100 ml 40 ml Intake Oral 400 ml 240 ml Output Urine Total 500 ml 200 ml Laboratory Tests 02/09/19 05:05: White Blood Count 5.0, Red Blood Count 3.47L, Hemoglobin 9.5L, Hematocrit 30.4L , Mean Corpuscular Volume 87, Mean Corpuscular Hemoglobin 27.5, Mean Corpuscular Hemoglobin Concent 31.4L, Red Cell Distribution Width 17.2H, Platelet Count 304, Mean Platelet Volume 5.6L, Neutrophils (%) (Auto) 60.7, Lymphocytes (%) (Auto) 23.1, Monocytes (%) (Auto) 6.3, Eosinophils (%) (Auto) 8.6H, Basophils (%) (Auto) 1.3, Sodium Level 139, Potassium Level 3.6, Chloride Level 100, Carbon Dioxide Level 30, Anion Gap 9, Blood Urea Nitrogen 24H, Creatinine 0.8, Estimat Glomerular Filtration Rate , Glucose Level 86, Calcium Level 10.4H Height (Feet): 5 Height (Inches): 6.00 Weight (Pounds): 110 General Appearance: lethargic EENT: normal ENT inspection Neck: normal alignment Cardiovascular: normal peripheral pulses, normal rate, regular rhythm Respiratory/Chest: chest wall non-tender, lungs clear, normal breath sounds Abdomen: normal bowel sounds, non tender, soft Extremities: normal inspection Edema: no edema noted Arm (L), no edema noted Arm (R), no edema noted Leg (L), no edema noted Leg (R), no edema noted Pedal (L), no edema noted Pedal (R), no edema noted Generalized Neurologic: responsive, motor weakness Skin: normal pigmentation, warm/dry Rio Lema DO Feb 09, 2019 13:04
--- NOTE | 2019-02-09 14:00 | NUR ---
NURSE NOTES: KIARA SAVAGE TALKED WITH DR YOLIS FLORES MD AND CLEARED PT FOR DISCHARGE/
--- NOTE | 2019-02-09 14:35 | NUR ---
DISCHARGED TO [facility] VIA AMBULANCE IN STABLE CONDITION. TRANSFER PAPERS AND ORDERS SENT WITH PT. REPORT CALLED TO SD SAVAGE.
--- NOTE | 2019-02-09 14:46 | NUR ---
*-* INSURANCE *-* UPDATED CLINICALS HAVE BEEN FAXED TO: [facility] PLEASE FAX THE REVIEW /CLINICAL NCM: COLETTE P- [phone] X Claudia F- [phone]....
--- NOTE | 2019-02-10 14:27 | Discharge Summary ---
Discharge Summary Discharge Summary _ DATE OF ADMISSION: 01/17/2019 DATE OF DISCHARGE: 02/09/2019 DISCHARGED BY: Dr. Rio Lema CONSULTANTS: Dr. Renzo Mustafa [facility]: Patient is a 78-year-old female, from [facility], presented to [place] due to increased shortness of breath for 2 days. Patient had intermittent cough. She has history of diabetes mellitus, COPD, hypertension, VT, CAD, CHF and asthma. On evaluation at ED, blood pressure was 152/78, pulse rate 89. She was saturating 91% on nonrebreather mask. Blood work did not show any leukocytosis. Hemoglobin was 11, hematocrit 35. Electrolytes were normal. Troponin was elevated to 0.45. EKG showed normal sinus rhythm with LVH and left bundle branch block. Chest x-ray showed bilateral extensive interstitial and airspace opacities. She was given albuterol treatment, prednisone, IV fluids and antibiotics. She was given aspirin, Lasix and Nitropaste. She was then admitted to [facility] for CHF and COPD exacerbation and evaluation of elevated troponin. She was given respiratory treatment. Titrate FiO2 to 92%. She was given IV steroids. She was started on antitussives and theophylline. She was given IV aztreonam empirically pending culture results. Influenza screen was negative. Cardiac enzymes were monitored. She was given diuretics. Echocardiogram done showed normal EF but has severe pulmonary hypertension and grade 1 diastolic dysfunction. Patient likely with type II end STEMI. Unable to be given beta- ehsan due to asthma and COPD. Chest CT showed extensive fibrosis and chronic changes. There was no acute pulmonary embolus or other acute thoracic vascular pathology. There was pneumomediastinum, suspect due to ruptured right-sided medial bleb. Patient has overall poor prognosis. She was given trial of lidocaine inhalers and chronic methadone to suppress dyspnea. She was continued on IV aztreonam and azithromycin was added for atypical coverage. She had elevated AST. HIV screen was negative. She was positive for hepatitis C. Viral load was negative. Steroids were tapered. She was constipated. She was given bowel regimen. She completed antibiotic treatment and was monitored off antibiotics. Patient was unable to be placed back to prior long-term. Patient's placement was contingent upon her insurance. She was eventually discharged to [facility]. FINAL DIAGNOSES: Acute COPD exacerbation Acute on chronic diastolic CHF Probable aspiration pneumonia Probable pneumonitis Pneumomediastinum suspected due to right-sided paratracheal bleb rupture Type II NSTEMI Extensive pulmonary fibrosis Pulmonary hypertension Severe protein calorie malnutrition Elevated liver transaminases Diabetes mellitus Anemia Hypertension Cervical radiculopathy Constipation Osteoarthritis Coronary artery disease Old CVA [facility] resident Prior bilateral hip replacement DISPOSITION: Patient was transferred to [facility] convalescent. DISCHARGE MEDICATIONS: Refer to Discharge Medication List. I have been assigned to complete a discharge summary on this account, I was not involved with the patient's management. Glenys Suggs NP Feb 10, 2019 14:27
== END 2019-02-09 14:56 | DRG 194 ==
LOC: EDBD 13:10 → EDBEDREQ 14:29 → EMR 14:35 → EDBEDREQ 15:09 → 2W 15:15 → EDBEDREQ 15:33 → EDBEDREQSVC 15:39 → EDBEDREQ 16:22 → 2W 18:31 → 2E 01-19 18:06 → 3E 01-21 18:45
DX: I11.0 Hypertensive heart disease with heart failure (principal); I21.A1 Myocardial infarction type 2; E43 Unspecified severe protein-calorie malnutrition; J69.0 Pneumonitis due to inhalation of food and vomit; J96.00 Acute respiratory failure, unspecified whether with hypoxia or hypercapnia; J18.9 Pneumonia, unspecified organism; I27.20 Pulmonary hypertension, unspecified; J44.0 Chronic obstructive pulmonary disease with (acute) lower respiratory infection; J84.10 Pulmonary fibrosis, unspecified; J98.2 Interstitial emphysema; J44.1 Chronic obstructive pulmonary disease with (acute) exacerbation; I50.33 Acute on chronic diastolic (congestive) heart failure; N39.0 Urinary tract infection, site not specified; M54.12 Radiculopathy, cervical region; D64.9 Anemia, unspecified; Z96.643 Presence of artificial hip joint, bilateral; I25.10 Atherosclerotic heart disease of native coronary artery without angina pectoris; K59.00 Constipation, unspecified; Z68.1 Body mass index [BMI] 19.9 or less, adult; Z86.73 Personal history of transient ischemic attack (TIA), and cerebral infarction without residual deficits
CPT/HCPCS: 36415; 71045; 71275; 80048; 80053; 81001; 81003; 82270; 82378; 82533; 82607; 82746; 83540; 83550; 83615; 83735; 83880; 83930; 83935; 84100; 84300; 84439; 84443; 84481; 84484; 84550; 85007; 85025; 85044; 85060; 85610; 85651; 85730; 86703; 86705; 86709; 86710; 86803; 87040; 87070; 87081; 87086; 87181; 87205; 87340; 87522; 93005; 93306; 93970; 94640; 94664; 94760; 96361; 96365; 96375; 97803; 99285; J2405; J7620; J8499

== ENCOUNTER 2019-09-08 18:06 | Emergency (ER) | payer MEDICARE, OTHER ==
[~2019-09-08] VITALS: Ht 162.6 cm; Wt 47.6 kg
[~2019-09-08 18:06] MED LIST changes: +ACETAMINOP160 MG/54 ORAL; +ACETAMINOPHEN325 M1 ORAL; +ADVANCED ANTAC355 ML ORAL; +ATORVASTATIN CA80 MG ORAL; +COLACE100 MG ORAL; +DUONEB 0.5-3(2.53 ML HHN; +FERROUS SULFAT325 MG ORAL; +FISH OIL CAP1000 MG ORAL; +FUROSEMIDE40 MG ORAL; +MEGESTROL400 MG/11 PO; +METHADONE HCL5 MG ORAL; +METOPROLOL TART25 MG ORAL; +MILK OF MA2400 MG/10 ORAL; +MIRALAX17 G2 ORAL; +NITROSTAT0.4 M1 SL; +PRO-STAT LIQUID30 ML ORAL; +SENNA8.6 M2 PO; +THEOPHYLLINE A100 MG ORAL; +TRAMADOL HCL50 MG ORAL; +ZOFRAN ODT8 MG ORAL; +ZOFRAN4 M3 ORAL
[2019-09-08 18:10] VITALS: BP 134/74
--- NOTE | 2019-09-08 18:10 | NUR ---
ED Nurse Note: Patient brought into ED by MICKIE from [facility] c/o pneumonia, patient did get a chest xray that shoes a bilateral mild pulmonary edema, patients o2 is 92% on room air and is not complaining of any pain at this time. patient is alert and oriented x4, IV started on right hand 20 gauge, will wait for further orders
[2019-09-08] MEDS ORDERED: FLEET ENEMA133 M1 RC (18:21)
[2019-09-08] MEDS ORDERED: BISACODYL10 M1 RC (18:21)
[2019-09-08] MEDS ORDERED: SEROQUEL50 MG ORAL (18:21)
[2019-09-08] MEDS ORDERED: SUCRALFATE1 GM/10 ML PO (18:21)
[2019-09-08] MEDS ORDERED: CRANBERRY450 M4 PO (18:21)
[2019-09-08 19:00] LABS: BASOPHILS % (AUTO) 1.9 % (0.0-2.0); EOSINOPHILS % (AUTO) 7.5 % (0.0-3.0); HEMATOCRIT 33.4 % (37.0-47.0); HEMOGLOBIN 10.8 G/DL (12.0-16.0); MEAN CORPUSCULAR VOLUME 86 FL (80-99); MONOCYTES % (AUTO) 7.6 % (1.0-10.0); PLATELET COUNT 263 K/UL (150-450); RED BLOOD COUNT 3.87 M/UL (4.20-5.40); RED CELL DISTRIBUTION WIDTH 13.1 % (11.6-14.8); WHITE BLOOD COUNT 4.8 K/UL (4.8-10.8)
[2019-09-08 19:12] LABS: ANION GAP 8 mmol/L (5-15); BLOOD UREA NITROGEN 19 mg/dL (7-18); CALCIUM 9.5 MG/DL (8.5-10.1); CARBON DIOXIDE 29 MMOL/L (21-32); CHLORIDE 103 MMOL/L (98-107); CREATININE 0.8 MG/DL (0.55-1.30); POTASSIUM 4.4 MMOL/L (3.5-5.1); SODIUM 140 MMOL/L (136-145)
--- NOTE | 2019-09-08 19:13 | Diagnostic Imaging Report ---
History: SOB Exam: XR CXR 1 VIEW Comparison: 02 06 2019 FINDINGS: No significant interval change in appearance of the chest with bilateral coarse irregular markings most suggestive of chronic interstitial changes, appears unchanged. Pulmonary vascularity appears unchanged. The cardiac silhouette and mediastinal contours appear within limits. Bilateral severe appearing shoulder degenerative changes again noted. IMPRESSION: No significant interval change in appearance of the chest with bilateral coarse irregular markings most suggestive of chronic interstitial changes, appears unchanged. Pulmonary vascularity appears unchanged.
--- NOTE | 2019-09-08 19:15 | NUR ---
HAND-OFF: Report given to HUSSEIN Reddy.
[2019-09-08 19:25] LABS: ALANINE AMINOTRANSFERASE 38 U/L (12-78); ALBUMIN 3.4 G/DL (3.4-5.0); ALBUMIN/GLOBULIN RATIO 0.6 (1.0-2.7); ALKALINE PHOSPHATASE 98 U/L (46-116); ASPARTATE AMINO TRANSFERASE 55 U/L (15-37); BILIRUBIN,TOTAL 0.3 MG/DL (0.2-1.0); CKMB 22.8 NG/ML (0.0-3.6); CREATINE KINASE 967 U/L (26-308)
--- NOTE | 2019-09-08 19:25 | NUR ---
ED Nurse Note: Recieved report to resume care, pt in bed awake, alert and oriented x 4, pt on cardiac monitoring and has patent IV line in right hand, pt denies cp or any pain, no sob or labored breathing, pt from SNF with abnormal chest X-ray, poss PNA, will resume care as ordered and prepare for admission or transfer.
[2019-09-08 19:45] VITALS: BP 140/77
--- NOTE | 2019-09-08 19:54 | NUR ---
John called from insurance for additional clinical information. Will try to transfer patient, will call us back.
--- NOTE | 2019-09-08 21:00 | NUR ---
ED Nurse Note: PT CONTINUES TO REST IN BED, AWAKE AND ALERT, PT GIVEN SANDWICH,, JUICE AND FRUIT, ATE ALL AND TOLERATED WELL, PT DENIES CP, REMAINS ON CARDIAC MONITORING, IV SITE PATENT, PT TO BE TRANSFERRED FOR CONTYINUED CARE AND ADMISSION, PT FAMILY INFORMED VIA PHONE, SON AND DAUGHTER, PT ALSO GIVEN ADDRESS INFO TO ;[facility], WILL CONTINUE TO MONITOR WHILE WAITING FOR TRANSPORT.
--- NOTE | 2019-09-08 21:28 | Emergency Room Report ---
History of Present Illness General Chief Complaint: Abnormal Labs Source: Patient, Medical Record, EMS Present Illness HPI 79-year-old female presents ED for evaluation. [facility] in [facility] from [facility]. Had chest x-ray which showed bilateral effusion. Patient states she has been coughing. Thinks she may have pneumonia. Cough is productive with yellowish phlegm. Denies fevers or chills. Denies chest pain. No other aggravating relieving factors. Denies any other associated symptoms Allergies: Coded Allergies: PENICILLINS (Verified Allergy, Unknown, SWELLING EVERYWHERE, EVEN EYES PER PATIENT, 11/24/11) Patient History Past Medical History: HTN, CHF, COPD Pertinent Family History: none Social History: Denies: smoking, alcohol use, drug use Now: No Immunizations: UTD Reviewed Nursing Documentation: PMH: Agreed; PSxH: Agreed Nursing Documentation-PMH Hx Cardiac Problems: Yes - HF Hx Hypertension: Yes Hx Asthma: Yes Hx COPD: Yes Hx Cancer: No Hx Gastrointestinal Problems: No Hx Neurological Problems: No Hx Cerebrovascular Accident: Yes Review of Systems All Other Systems: negative except mentioned in HPI Physical Exam Vital Signs Date Time Temp Pulse Resp B/P (MAP) Pulse Ox O2 Delivery O2 Flow Rate FiO2 09/08/19 17:59 98.1 83 20 134/74 (94) 99 Nasal Cannula 2.0 Sp02 EP Interpretation: reviewed, normal General Appearance: no apparent distress, alert, GCS 15, non-toxic Head: normocephalic, atraumatic Eyes: bilateral eye normal inspection, bilateral eye PERRL ENT: hearing grossly normal, normal pharynx, no angioedema, normal voice Neck: full range of motion, supple/symm/no masses Respiratory: chest non-tender, crackles, speaking full sentences Cardiovascular #1: regular rate, rhythm, no edema Cardiovascular #2: 2+ carotid (R), 2+ carotid (L), 2+ radial (R), 2+ radial (L) , 2+ dorsalis pedis (R), 2+ dorsalis pedis (L) Gastrointestinal: normal bowel sounds, non tender, soft, non-distended, no guarding, no rebound Rectal: deferred Genitourinary: normal inspection, no CVA tenderness Musculoskeletal: back normal, gait/station normal, normal range of motion, non- tender Neurologic: alert, oriented x3, responsive, motor strength/tone normal, sensory intact, speech normal Psychiatric: judgement/insight normal, memory normal, mood/affect normal, no suicidal/homicidal ideation Reflexes: 3+ bicep (R), 3+ bicep (L), 3+ tricep (R), 3+ tricep (L), 3+ knee (R) , 3+ knee (L) Skin: other - see nursing skin notes Lymphatic: no adenopathy Medical Decision Making Diagnostic Impression: Primary Impression: CHF (congestive heart failure) Qualified Codes: I50.9 - Heart failure, unspecified Additional Impressions: Pleural effusion Elevated troponin ER Course Hospital Course 79 yo F presents to ED c/o cough, ?PNA on CXR Differential diagnoses include: CA/unstable angina, contusion, muscle strain, PTX, rib fracture Clinical course Patient placed on stretcher. on manager cardiac cath. After initial history and physical I ordered labs, EKG, chest x-ray labs reviewed- no leukocytosis, hemoglobin/hematocrit stable, trop 0.222, BNP elevated, lactic ok EKG - PVCs, repolarization Chest x-ray- cardiomegaly, bilateral effusions, ? infiltrate Antibiotics given. aspirin given. because of insurance patient will be transferred I. I feel this is a highly complex case requiring extensive working including EKG/Rhythm strip, Xray/CT/US, Blood/urine lab work, repeat exams while in ED, and administration of strong opiates/narcotics for pain control, admission to hospital or close patient follow up. Diagnosis - CHF, pleural effusion, elevated troponin transferred in serious condition Labs Test 09/08/19 18:49 White Blood Count 4.8 K/UL (4.8-10.8) Red Blood Count 3.87 M/UL (4.20-5.40) Hemoglobin 10.8 G/DL (12.0-16.0) Hematocrit 33.4 % (37.0-47.0) Mean Corpuscular Volume 86 FL (80-99) Mean Corpuscular Hemoglobin 28.0 PG (27.0-31.0) Mean Corpuscular Hemoglobin Concent 32.5 G/DL (32.0-36.0) Red Cell Distribution Width 13.1 % (11.6-14.8) Platelet Count 263 K/UL (150-450) Mean Platelet Volume 6.6 FL (6.5-10.1) Neutrophils (%) (Auto) 63.0 % (45.0-75.0) Lymphocytes (%) (Auto) 20.0 % (20.0-45.0) Monocytes (%) (Auto) 7.6 % (1.0-10.0) Eosinophils (%) (Auto) 7.5 % (0.0-3.0) Basophils (%) (Auto) 1.9 % (0.0-2.0) Sodium Level 140 MMOL/L (136-145) Potassium Level 4.4 MMOL/L (3.5-5.1) Chloride Level 103 MMOL/L (98-107) Carbon Dioxide Level 29 MMOL/L (21-32) Anion Gap 8 mmol/L (5-15) Blood Urea Nitrogen 19 mg/dL (7-18) Creatinine 0.8 MG/DL (0.55-1.30) Estimat Glomerular Filtration Rate mL/min (>60) Glucose Level 90 MG/DL (74-106) Lactic Acid Level 0.80 mmol/L (0.4-2.0) Calcium Level 9.5 MG/DL (8.5-10.1) Total Bilirubin 0.3 MG/DL (0.2-1.0) Aspartate Amino Transf (AST/SGOT) 55 U/L (15-37) Alanine Aminotransferase (ALT/SGPT) 38 U/L (12-78) Alkaline Phosphatase 98 U/L (46-116) Total Creatine Kinase 967 U/L (26-308) Creatine Kinase MB 22.8 NG/ML (0.0-3.6) Creatine Kinase MB Relative Index 2.3 Troponin I 0.222 ng/mL (0.000-0.056) Pro-B-Type Natriuretic Peptide 943 pg/mL (0-125) Total Protein 9.0 G/DL (6.4-8.2) Albumin 3.4 G/DL (3.4-5.0) Globulin 5.6 g/dL Albumin/Globulin Ratio 0.6 (1.0-2.7) EKG Diagnostic Results Rate: normal Rhythm: NSR ST Segments: other - repolarzation abnormality ASA given to the pt in ED: Yes Rhythm Strip Diag. Results EP Interpretation: yes Rhythm: NSR Chest X-Ray Diagnostic Results Chest X-Ray Diagnostic Results : Chest X-Ray Ordered: Yes # of Views/Limited/Complete: 1 View Indication: Shortness of Breath EP Interpretation: Yes Interpretation: no pneumothorax, other - cardiomegaly. interstitial changes. bilateral pleural effusion Impression: Other - CHF/PNA Electronically Signed by: Electronically signed by Tay Yeung MD Last Vital Signs Date Time Temp Pulse Resp B/P (MAP) Pulse Ox O2 Delivery O2 Flow Rate FiO2 09/08/19 19:45 98.1 88 20 140/77 99 Nasal Cannula 2.0 Status: improved Disposition: [facility] Condition: Serious Referrals: Rio Lema DO (PCP) Tay Yeung MD Sep 08, 2019 21:28
[2019-09-08] MEDS ORDERED: Aspirin Baby 81mg ORAL ONE (21:30)
--- NOTE | 2019-09-08 21:30 | NUR ---
ED Nurse Note: REPORT CALLED TO [facility] AT [phone], REPORT GIVEN TO HOG TENDER HUSSEIN GARRETT, ALL PERTINENT INFO GIVEN, WAITING FOR AMBULANCE TRANSPORT.
[2019-09-08 21:40] VITALS: BP 140/77
[2019-09-08 21:45] VITALS: BP 140/77
--- NOTE | 2019-09-08 21:45 | NUR ---
ER DISCHARGE NOTE: Patient is cleared to be discharged per ERMD, pt is aox4, on room air, with stable vital signs. pt was given dc and prescription instructions, pt was able to verbalize understanding, pt id band removed without complications. pt is able to ambulate with steady gait. pt took all belongings. pt leaving via ambulance - [id number], report and transfer packet given to tanker driver leatha goodrich noted.
--- NOTE | 2019-09-09 12:37 | Cardiology Report ---
APPROVED REPORT EKG Measurement Heart [id number] Sinus rhythm with frequent premature ventricular complexes Left ventricular hypertrophy with QRS widening and repolarization abnormality Abnormal ECG
== END 2019-09-08 21:45 | disposition short-term general hospital (02) ==
LOC: EDBD 18:06 → EMR 19:25
DX: I11.0 Hypertensive heart disease with heart failure (principal); I50.9 Heart failure, unspecified; R79.89 Other specified abnormal findings of blood chemistry; J90 Pleural effusion, not elsewhere classified; J44.9 Chronic obstructive pulmonary disease, unspecified; Z86.73 Personal history of transient ischemic attack (TIA), and cerebral infarction without residual deficits; Z88.0 Allergy status to penicillin
CPT/HCPCS: 36415; 71045; 80053; 82550; 82553; 83605; 83880; 84484; 85025; 87040; 93005; 96365; 99285; J1956

== ENCOUNTER 2020-01-23 18:11 | Emergency (ER) | payer MEDICARE, OTHER ==
[~2020-01-23] VITALS: Ht 167.6 cm; Wt 72.6 kg
[~2020-01-23 18:11] MED LIST changes: +BISACODYL10 M1 RC; +CRANBERRY450 M4 PO; +FLEET ENEMA133 M1 RC; +SEROQUEL50 MG ORAL; +SUCRALFATE1 GM/10 ML PO
[2020-01-23] MEDS ORDERED: FLEET ENEMA133 ML RECTAL (18:26)
[2020-01-23] MEDS ORDERED: ATIVAN0.5 MG ORAL (18:26)
[2020-01-23] MEDS ORDERED: IPRATROPIU0.2 MG/1 M HHN (18:26)
[2020-01-23] MEDS ORDERED: ASPIR 8181 MG ORAL (18:26)
[2020-01-23] MEDS ORDERED: MILK OF MA400 MG/51 ORAL (18:26)
[2020-01-23] MEDS ORDERED: DULCOLAX10 MG RC (18:26)
[2020-01-23 18:38] VITALS: BP 158/71
[2020-01-23] MEDS ORDERED: Ipratropium 0.02% Inh Soln 2.5ml UD HHN ONE (18:45)
[2020-01-23] MEDS ORDERED: Albuterol ud Inhalation HHN ONE (18:45)
[2020-01-23] MEDS ORDERED: Solu-MEDROL 125mg Inj IVP ONE (18:45)
[2020-01-23 19:41] VITALS: BP 168/90
[2020-01-23 19:46] LABS: ANION GAP 7 mmol/L (5-15); BLOOD UREA NITROGEN 20 mg/dL (7-18); CALCIUM 10.4 MG/DL (8.5-10.1); CARBON DIOXIDE 37 MMOL/L (21-32); CHLORIDE 103 MMOL/L (98-107); CREATININE 0.8 MG/DL (0.55-1.30); POTASSIUM 3.7 MMOL/L (3.5-5.1); SODIUM 146 MMOL/L (136-145)
[2020-01-23 19:53] LABS: BASOPHILS % (AUTO) 2.9 % (0.0-2.0); HEMATOCRIT 34.8 % (37.0-47.0); LYMPHOCYTES % (AUTO) 12.7 % (20.0-45.0); MEAN CORPUSCULAR VOLUME 89 FL (80-99); MONOCYTES % (AUTO) 5.6 % (1.0-10.0); NEUTROPHILS % (AUTO) 72.9 % (45.0-75.0); PLATELET COUNT 169 K/UL (150-450); RED BLOOD COUNT 3.89 M/UL (4.20-5.40); RED CELL DISTRIBUTION WIDTH 16.3 % (11.6-14.8); WHITE BLOOD COUNT 7.5 K/UL (4.8-10.8)
[2020-01-23 19:56] LABS: ALANINE AMINOTRANSFERASE 29 U/L (12-78); ALBUMIN 3.9 G/DL (3.4-5.0); ALBUMIN/GLOBULIN RATIO 0.7 (1.0-2.7); ALKALINE PHOSPHATASE 95 U/L (46-116); ASPARTATE AMINO TRANSFERASE 45 U/L (15-37); BILIRUBIN,TOTAL 0.2 MG/DL (0.2-1.0)
[2020-01-23 21:15] VITALS: BP 128/90
--- NOTE | 2020-01-23 21:18 | Emergency Room Report ---
History of Present Illness General Chief Complaint: Nosebleed Source: Patient, EMS Present Illness HPI 79-year-old female presents ED for evaluation. Per EMS patient having nosebleed today. Patient resides in long term facility. States the blood ran down her throat and she threw up a few times. States that she is not having a nosebleed at this time. Denies any vomiting. States she feels short of breath. History of COPD. Is on home oxygen but still feels short of breath. Notes cough. Denies fevers or chills. Denies chest pain. No other aggravating relieving factors. Denies any other associated symptoms COVID-19 risk:Travel to affect: No Allergies: Coded Allergies: PENICILLINS (Verified Allergy, Unknown, SWELLING EVERYWHERE, EVEN EYES PER PATIENT, 11/24/11) Patient History Past Medical History: HTN, CHF, asthma, COPD, CVA/TIA Past Surgical History: none Pertinent Family History: none Social History: Denies: smoking, alcohol use, drug use Now: No Immunizations: UTD Reviewed Nursing Documentation: PMH: Agreed; PSxH: Agreed Nursing Documentation-PMH Past Medical History: No History, Except For Hx Cardiac Problems: Yes - HF Hx Hypertension: Yes Hx Asthma: Yes Hx COPD: Yes Hx Cancer: No Hx Gastrointestinal Problems: No Hx Neurological Problems: No Hx Cerebrovascular Accident: Yes Review of Systems All Other Systems: negative except mentioned in HPI Physical Exam Vital Signs Date Time Temp Pulse Resp B/P (MAP) Pulse Ox O2 Delivery O2 Flow Rate FiO2 01/23/20 18:15 98.2 86 15 161/76 (104) 99 Room Air 01/23/20 18:55 2.0 28 Sp02 EP Interpretation: reviewed, normal General Appearance: no apparent distress, alert, GCS 15, non-toxic Head: normocephalic, atraumatic Eyes: bilateral eye normal inspection, bilateral eye PERRL ENT: hearing grossly normal, normal pharynx, no angioedema, normal voice, other - no blood in nares. no active bleeding Neck: full range of motion, supple/symm/no masses Respiratory: chest non-tender, decreased breath sounds, speaking full sentences , wheezing Cardiovascular #1: regular rate, rhythm, no edema Cardiovascular #2: 2+ carotid (R), 2+ carotid (L), 2+ radial (R), 2+ radial (L) , 2+ dorsalis pedis (R), 2+ dorsalis pedis (L) Gastrointestinal: normal bowel sounds, non tender, soft, non-distended, no guarding, no rebound Rectal: deferred Genitourinary: normal inspection, no CVA tenderness Musculoskeletal: back normal, normal range of motion, gait/station normal, non- tender Neurologic: alert, motor strength/tone normal, oriented x3, sensory intact, responsive, speech normal Psychiatric: judgement/insight normal, memory normal, mood/affect normal, no suicidal/homicidal ideation Reflexes: 3+ bicep (R), 3+ bicep (L), 3+ tricep (R), 3+ tricep (L), 3+ knee (R) , 3+ knee (L) Skin: other - see nursing skin notes Lymphatic: no adenopathy Medical Decision Making Diagnostic Impression: Primary Impression: COPD exacerbation Additional Impression: Epistaxis ER Course Hospital Course 79-year-old F presenting to ED with SOB. h/o COPD Differential diagnoses include: Pneumonia, CHF exacerbation, pneumothorax, fluid overload Clinical course Patient placed on stretcher. On reconciliation specialist with stable vitals. After initial history and physical, I ordered nebulizer treatments. I ordered labs, IV fluids, EKG, chest x-ray, blood cultures, UA. Labs - no leukocytosis noted, hemoglobin/hematocrit stable, Na 146, trop 0.134, proBNP 1124, , lactate okay CXR - cardiomegaly, interstitial congestion vs infiltrate EKG - NSR, no acute ischemic changes interpreted by me patient denies chest pain. epistaxis at long term facility. No active epistaxis at this time. Coags okay. No further intervention. Given antibiotics. Because of insurance patient will be transferred I feel this is a highly complex case requiring extensive working including EKG/ Rhythm strip, Xray/CT/US, Blood/urine lab work, repeat exams while in ED, and administration of strong opiates/narcotics for pain control, admission to hospital or close patient follow up. Diagnosis - COPD exacerbation, epistaxis transferred in serious condition Labs Test 01/23/20 19:15 White Blood Count 7.5 K/UL (4.8-10.8) Red Blood Count 3.89 M/UL (4.20-5.40) Hemoglobin 11.0 G/DL (12.0-16.0) Hematocrit 34.8 % (37.0-47.0) Mean Corpuscular Volume 89 FL (80-99) Mean Corpuscular Hemoglobin 28.2 PG (27.0-31.0) Mean Corpuscular Hemoglobin Concent 31.6 G/DL (32.0-36.0) Red Cell Distribution Width 16.3 % (11.6-14.8) Platelet Count 169 K/UL (150-450) Mean Platelet Volume 7.6 FL (6.5-10.1) Neutrophils (%) (Auto) 72.9 % (45.0-75.0) Lymphocytes (%) (Auto) 12.7 % (20.0-45.0) Monocytes (%) (Auto) 5.6 % (1.0-10.0) Eosinophils (%) (Auto) 6.0 % (0.0-3.0) Basophils (%) (Auto) 2.9 % (0.0-2.0) Prothrombin Time 10.2 SEC (9.30-11.50) Prothromb Time International Ratio 1.0 (0.9-1.1) Activated Partial Thromboplast Time 19 SEC (23-33) Sodium Level 146 MMOL/L (136-145) Potassium Level 3.7 MMOL/L (3.5-5.1) Chloride Level 103 MMOL/L (98-107) Carbon Dioxide Level 37 MMOL/L (21-32) Anion Gap 7 mmol/L (5-15) Blood Urea Nitrogen 20 mg/dL (7-18) Creatinine 0.8 MG/DL (0.55-1.30) Estimat Glomerular Filtration Rate > 60 mL/min (>60) Glucose Level 95 MG/DL (74-106) Lactic Acid Level 0.50 mmol/L (0.4-2.0) Calcium Level 10.4 MG/DL (8.5-10.1) Total Bilirubin 0.2 MG/DL (0.2-1.0) Aspartate Amino Transf (AST/SGOT) 45 U/L (15-37) Alanine Aminotransferase (ALT/SGPT) 29 U/L (12-78) Alkaline Phosphatase 95 U/L (46-116) Troponin I 0.134 ng/mL (0.000-0.056) Pro-B-Type Natriuretic Peptide 1124 pg/mL (0-125) Total Protein 9.3 G/DL (6.4-8.2) Albumin 3.9 G/DL (3.4-5.0) Globulin 5.4 g/dL Albumin/Globulin Ratio 0.7 (1.0-2.7) EKG Diagnostic Results Rate: normal Rhythm: NSR ST Segments: no acute changes ASA given to the pt in ED: No Rhythm Strip Diag. Results EP Interpretation: yes Rhythm: NSR, no PVC's, no ectopy Chest X-Ray Diagnostic Results Chest X-Ray Diagnostic Results : Chest X-Ray Ordered: Yes # of Views/Limited/Complete: 1 View Indication: Shortness of Breath EP Interpretation: Yes Interpretation: no effusion, no pneumothorax, other - cardiomegaly. interstitial congestion Impression: Other - chf/pneumonia Electronically Signed by: Electronically signed by Tay Yeung MD Last Vital Signs Date Time Temp Pulse Resp B/P (MAP) Pulse Ox O2 Delivery O2 Flow Rate FiO2 01/23/20 19:41 87 32 168/90 98 Nasal Cannula 3.0 01/23/20 18:55 28 01/23/20 18:38 98.2 Status: improved Disposition: [facility] Condition: Serious Referrals: Rio Lema DO (PCP) Tay Yeung MD Jan 23, 2020 21:18
--- NOTE | 2020-01-24 15:04 | Diagnostic Imaging Report ---
Indication: Dyspnea Comparison: 09/08/2019 A single view chest radiograph was obtained. Findings: Interstitial opacities appear prominent. Heart is enlarged. The bones are osteopenic. Multilevel vertebral endplate osteophytes demonstrated. Severe arthrosis of both shoulders noted. Aorta is calcified. IMPRESSION: Increased interstitial opacities. CHF suspected. There may be chronic interstitial disease as well.
== END 2020-01-23 21:15 | disposition short-term general hospital (02) ==
LOC: EDBD 18:11 → EDSEX 18:11 → EMR 18:45 → EDBEDREQSVC 20:24 → EMR 21:15
DX: J44.1 Chronic obstructive pulmonary disease with (acute) exacerbation (principal); R04.0 Epistaxis; Z88.0 Allergy status to penicillin; I11.0 Hypertensive heart disease with heart failure; I50.9 Heart failure, unspecified; J44.9 Chronic obstructive pulmonary disease, unspecified; Z86.73 Personal history of transient ischemic attack (TIA), and cerebral infarction without residual deficits
CPT/HCPCS: 36415; 71045; 80053; 83605; 83880; 84484; 85025; 85610; 85730; 86850; 86900; 86901; 87040; 87181; 93005; 96365; 96375; 99284; J1956; J2930